=== PATIENT | male | born 1935 | race Caucasian/White ===

== ENCOUNTER 2020-05-21 11:15 | Outpatient (CLI) | payer MEDICARE, OTHER, SELFPAY ==
--- NOTE | 2020-05-21 11:00 | USCV_ITS ---
Steven Tee Age: 85 Gender: M : 1935 Exam Date: 05/21/2020 11:15 Ordering Phys: Guera Crystal MD ([email or web address]) Technologist: Toney Whiting Exam Location: [facility] [place] Indication: HISTORY: PATIENT STATES HE HAD VEIN HARVESTED FROM HIS RIGHT LEG FOR OPEN HEART SURGERY. POSSIBLE COLLATERAL NOTED THROUGHOUT THE RIGHT LOWER EXTREMITY. PROCEDURES: FINDINGS: Examination was technically limited due to body habitus. CONCLUSIONS No evidence of DVT in the above-mentioned identifiable veins. No significant venous insufficiency was noted in the veins identified bilaterally Venous dimensions and depth from the surface are as mentioned above (History of vein harvesting from the right lower extremity. Possible accessory vein) Dr José Luis Becker MD [facility] (Electronically Signed) Final Date: 21 May 2020 20:52 S
== END 2020-05-21 11:16 | disposition home or self-care (01) ==
LOC: US 11:16
PROVIDERS: PCP Nurse Practitioner; Visit Provider Internal Medicine Cardiovascular Disease
DX: Z87.898 Personal history of other specified conditions (principal); M79.605 Pain in left leg; M79.604 Pain in right leg; R25.2 Cramp and spasm
CPT/HCPCS: 93970

== ENCOUNTER 2020-12-18 09:02 | Outpatient (CLI) | payer MEDICARE, OTHER, SELFPAY ==
--- NOTE | 2020-12-18 09:06 | USCV_ITS ---
Steven Tee Age: 85 Gender: M : 1935 Exam Date: 12/18/2020 09:14 Ordering Phys: Alexus Hurst APN Technologist: Lucrecia Montano Exam Location: [facility] [place]_ Indication: EVAL FOR AAA HISTORY: Diameter (cm) AP x Transverse x Length Velocity (cm/s) Waveform Prox Aorta: 1.80 x 2.03 x 66.90 Mid Aorta: 1.80 x 1.76 x 53.70 Distal Aorta: 1.34 x 1.61 x 62.80 Right Iliac Prox: 0.72 x 0.80 x 248.80 Left Iliac Prox: 0.31 x 0.58 x 71.10 Stent Prox Landing x x Aneurysmal Sac Max x x Lt Lat Sac Dim Rt Lat Sac Dim Stent Dist Landing x x Right Iliac Stent x x Left Iliac Stent x x Right Renal Art Left Renal Art FINDINGS: Technically difficult study The abdominal aorta was difficult to visualize because of the patient's body habitus Aortic velocities are within normal limits Aortic dimensions also were within normal limits. CONCLUSIONS Possibly normal abdominal aortic dimensions with no evidence of aneurysm Elevated velocity in the right common iliac artery, suggestive of hemodynamically significant stenosis Technically very difficult study. Consider CTA, to better evaluate the iliac arteries Dr José Luis Becker MD [facility] (Electronically Signed) Final Date: 19 December 2020 09:42 S
== END 2020-12-18 09:03 | disposition home or self-care (01) ==
LOC: US 09:04
PROVIDERS: PCP Nurse Practitioner; Visit Provider Nurse Practitioner
DX: I71.4 Abdominal aortic aneurysm, without rupture (principal)
CPT/HCPCS: 93978

== ENCOUNTER 2020-12-20 11:00 | Outpatient (CLI) | payer MEDICARE, OTHER, SELFPAY | END 2020-12-20 11:01 | disposition home or self-care (01) | LOC: SLEEP 12-21 10:26 | PROVIDERS: PCP Nurse Practitioner; Visit Provider Nurse Practitioner | DX: G47.33 Obstructive sleep apnea (adult) (pediatric) (principal) | CPT/HCPCS: 94762 ==

== ENCOUNTER 2021-01-16 20:00 | Outpatient (CLI) | payer MEDICARE, OTHER, SELFPAY | END 2021-01-16 20:01 | disposition home or self-care (01) | LOC: SLEEP 01-17 08:52 | PROVIDERS: PCP Nurse Practitioner; Visit Provider Nurse Practitioner | DX: G47.33 Obstructive sleep apnea (adult) (pediatric) (principal) | CPT/HCPCS: 95810 ==

== ENCOUNTER 2021-02-25 20:00 | Outpatient (CLI) | payer MEDICARE, OTHER, SELFPAY | END 2021-02-25 20:01 | disposition home or self-care (01) | LOC: SLEEP 02-26 11:27 | PROVIDERS: PCP Nurse Practitioner; Visit Provider Nurse Practitioner | DX: G47.33 Obstructive sleep apnea (adult) (pediatric) (principal) | CPT/HCPCS: 95811 ==

== ENCOUNTER → 2021-07-13 16:36 | Outpatient (BNVA) | payer MEDICARE, OTHER, SELFPAY | PROVIDERS: PCP Nurse Practitioner; Visit Provider Registered Nurse Neonatal Intensive Care | DX: Z20.822 Contact with and (suspected) exposure to COVID-19 (principal) | CPT/HCPCS: 87635 ==

== ENCOUNTER 2021-07-13 20:07 | Emergency (ER) | payer MEDICARE, OTHER, SELFPAY ==
[2021-07-13 20:11] VITALS: BP 128/67; PULSE 90; RESP 20; O2SAT 90; BMI 30.4
[2021-07-13 20:14] VITALS: PULSE 95; RESP 25; O2SAT 93
[2021-07-13 20:15] VITALS: O2SAT 93
--- NOTE | 2021-07-13 20:25 | XRR_ITS ---
PROCEDURE INFORMATION: Exam: XR Chest Exam date and time: 07/13/2021 8:25 PM Age: 86 years old Clinical indication: Other: Weakness; Prior surgery; Surgery date: 6+ months; Surgery type: Heart; Additional info: SOB TECHNIQUE: Imaging protocol: XR of the chest. Views: 1 view. COMPARISON: No relevant prior studies available. FINDINGS: Lungs: Mild pulmonary venous congestion demonstrated. No pulmonary edema/infiltrate noted. Pleural spaces: No pleural effusion. No pneumothorax. Heart/Mediastinum: Cardiomegaly is present. 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 Bones/joints: Median sternotomy noted. XR/XR chest 1V portable [id number] IMPRESSION: 1. Cardiomegaly is present. 2. Mild pulmonary venous congestion demonstrated. 3. No pulmonary edema/infiltrate noted.
[2021-07-13 20:33] LABS: Basophils % 0.3 %; Hematocrit 43.9 % (42.0-52.0); Hemoglobin 14.9 g/dL (11.7-16.6); Lymphocytes # 0.4 10^3/uL (0.8-4.8); Lymphocytes % 3.6 %; Mean Corpuscular HGB Conc 33.9 g/dL (30.0-36.0); Mean Corpuscular Hemoglobin 34.7 pg (28.0-34.0); Mean Corpuscular Volume 102.1 fl (80-94); Mean Platelet Volume 10.1 fL (7.4-10.4); Monocytes # 1.1 10^3/uL (0.2-0.9); Neutrophils # 10.09 10^3/uL (1.8-7.7); Neutrophils % 86.4 %; Nucleated Red Blood Cells % 0 %; Platelet Count 147 10^3/cmm (130-400); Red Cell Distribution Width 14.3 % (12.1-15.1); White Blood Count 11.7 10^3/uL (4.0-10.0)
[2021-07-13 20:44] LABS: Fibrinogen 312 mg/dL (174-498)
[2021-07-13 20:47] LABS: D Dimer 0.61 ug/mIFEU (0-0.59)
[2021-07-13 20:48] LABS: Lactic Sepsis W/Reflex 0.9 mmol/L (0.5-2.2)
[2021-07-13 20:52] LABS: SARS Covid-2 Antigen Negative (Negative)
[2021-07-13 21:09] LABS: Alanine Aminotransferase 24 U/L (0-41); Albumin Level 3.8 g/dL (3.5-5.2); Alkaline Phosphatase 74 IU/L (40-130); Blood Urea Nitrogen 32 mg/dL (8-23); C Reactive Protein 20.5 mg/L (0.0-4.9); Calcium 8.4 mg/dL (8.5-10.5); Carbon Dioxide 23 mmol/L (22-29); Chloride 99 mmol/L (98-107); Creatinine Clr Calc Pharmacy 46.2641; Glucose 88 mg/dL (65-115); Osmolality Calculated 280 mOsm/kg (285-295); Sodium 132 mmol/L (136-145); Total Bilirubin 0.8 mg/dL (0.15-1.2); Total Protein 5.8 g/dL (6.6-8.7)
[2021-07-13 21:12] LABS: Aspartate Amino Transferase 27 U/L (0-40)
--- NOTE | 2021-07-13 21:23 | PC.NURSE ---
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
--- NOTE | 2021-07-13 21:33 | ECG_ITS ---
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 Measurements Intervals [place] Rate: 83 P: ME: QRS: 113 QRSD: 128 T: 11 QT: 356 QTc: 419 Interpretive Statements ATRIAL FIBRILLATION RIGHT AXIS DEVIATION [QRS AXIS > 100] RIGHT BUNDLE BRANCH BLOCK [120+ ms QRS DURATION, UPRIGHT V1, 40+ ms S IN I/aVL/V4/V5/V6] No previous ECG available for comparison Electronically Signed On 07-14-2021 19:47:43 CDT by Brant Sue M.D. [id number]
--- NOTE | 2021-07-13 21:33 | CTR_ITS ---
PROCEDURE INFORMATION: Exam: CTA Chest With Contrast Exam date and time: 07/13/2021 9:33 PM Age: 86 years old Clinical indication: Dyspnea; Prior surgery; Surgery date: 6+ months; Surgery type: Cabg; Additional info: SOB TECHNIQUE: Imaging protocol: Computed tomographic angiography of the chest with contrast. 3D rendering (Not supervised by radiologist): MIP and/or 3D reconstructed images were created by the technologist. Radiation optimization: All CT scans at this facility use at least one of these dose optimization techniques: automated exposure control; mA and/or kV adjustment per patient size (includes targeted exams where dose is matched to clinical indication); or iterative reconstruction. Contrast material: VISI; Contrast volume: 95 ml; Contrast route: INTRAVENOUS (IV); COMPARISON: CR XR chest 1V portable [id number] 07/13/2021 8:37 PM RADIATION DOSE METRICS: Total DLP (mGy-cm): 610.7 FINDINGS: Pulmonary arteries: Pulmonary arteries are well opacified. Pulmonary arteries are normal in caliber. No filling defects are demonstrated. No evidence of pulmonary embolism. Aorta: Atherosclerosis of the thoracic aorta. No aneurysm or dissection. Lungs: Subpleural fibrosis, centrilobular emphysema and subpleural bullous change noted in the lungs bilaterally. No consolidative pulmonary infiltrate noted. Pleural spaces: Unremarkable. No pneumothorax. No pleural effusion. Heart: Cardiomegaly is present. No pericardial effusion. Mediastinal space: There is a small hiatal hernia present. Lymph nodes: Unremarkable. No enlarged lymph nodes. Gallbladder and bile ducts: Calcified gallstone in the gallbladder. No changes of cholecystitis. Bones/joints: Median sternotomy noted. Median sternotomy noted. Soft tissues: The soft tissues appear unremarkable. CT/CT angio chest PE protcl [id number] IMPRESSION: 1. Pulmonary arteries appear unremarkable. No evidence of pulmonary embolism. 2. No evidence of thoracic aortic aneurysm or dissection. 3. Cardiomegaly is present. 4. Subpleural fibrosis, centrilobular emphysema and subpleural bullous change noted in the lungs bilaterally. No consolidative pulmonary infiltrate noted. Radiation Dose CTDIVOL = (mGy): DLP = 610.7 (mGy-cm)
[2021-07-13 21:49] VITALS: PULSE 91; RESP 18
[2021-07-13 21:50] LABS: Troponin(5th) Baseline 20 ng/L (0-15)
[2021-07-13 22:26] LABS: Troponin 5 2HR 22.39 ng/L (0-15); Troponin 5 2HR Delta 2.39 ABS# (0-10)
[2021-07-13 22:33] LABS: NT Pro B Type Natriuretic Pept 2162 pg/mL (0-450)
--- NOTE | 2021-07-13 23:29 | ED_ITS ---
HPI - COVID General: Chief Complaint: COVID symptoms Stated Complaint: SICK/ FEVER/ POSSIBLE COVID Time Seen by Provider: 07/13/21 20:11 Source: patient, family () and RN notes reviewed Mode of arrival: EMS Limitations: no limitations Triage information: Has fever, cough or shortness of breath . Exposure to COVID + person last 14 days History of Present Illness: HPI Narrative: 86-year-old male who was brought into the emergency department via EMS with complaints of shortness of breath, body aches, feeling unwell. Symptoms started about 3 days ago. He denies any cough. He denies any Covid exposure and has not had his Covid vaccine. MD complaint: has COVID symptoms Prior covid testing: no COVID 19 common symptoms: positive fever(s), cough, dyspnea, fatigue and body aches; negative chills, headache(s), loss of sense of smell and/or taste, throat pain, nasal congestion, nausea, vomiting, diarrhea or chest tightness COVID 19 other sytmptoms: negative chest pressure, chest pain, pleuritic pain, requiring oxygen, requiring more oxygen, respiratory distress, cyanosis, lethargy, confusion, new neurological complaints or other concerning symptoms Onset (ago): day(s) (3) Severity: moderate COVID Results: SARS-CoV-2 Antigen (Rapid) Negative (Negative) 07/13/21 20:23 07/13/21 SARS-CoV-2 RNA (RT-PCR) Pending 07/13/21 21:00 07/13/21 Review of Systems General: Reports: 10 or more systems reviewed and unremarkable except in HPI and below Const: Reports: fever(s), body aches and fatigue; Denies: chills ENMT: Denies: throat pain or nasal congestion Card: Denies: chest pain Resp: Reports: dyspnea GI: Denies: nausea, vomiting or diarrhea Neuro: Denies: headache(s) or confusion Physical Exam Const: COMMON NORMALS: no acute distress, average body habitus, patient oriented x3, no limitations, healthy appearing, alert and well nourished HENMT: COMMON NORMALS: normocephalic, atraumatic and moist oral mucous membranes HEAD & SCALP: normocephalic and atraumatic Eye: COMMON NORMALS: Equal, round and reactive pupils present, EOMs intact bilaterally, conjunctivae normal and no scleral icterus CONJUNCTIVA: Yes conjunctivae normal PUPIL: Yes Equal, round and reactive pupils present Neck/C-Spine: COMMON NORMALS: no meningeal signs and no JVD Resp: COMMON NORMALS: normal respiratory effort, No retractions, No use of accessory muscles, clear to auscultation bilaterally and percussion normal AUSCULTATION: clear to auscultation bilaterally PERCUSSION: percussion normal Cardio: COMMON NORMALS: no JVD, regular rate, regular rhythm, S1 normal heart sound present, S2 normal heart sound present, No gallops present (Cardio), No clicks present (Cardio), No murmurs present (Cardio), No rub (Cardio) and Peripheral pulses 2+ throughout RATE: regular rate RHYTHM: regular rhythm HEART SOUNDS: S1 normal heart sound present and S2 normal heart sound present PERIPHERAL PULSES: Peripheral pulses 2+ throughout GI: COMMON NORMALS: Normal to inspection, nondistended, normoactive bowel sounds present, Soft to palpation, non-tender, No hepatosplenomegaly present, no masses and no bruits PALPATION: Yes Soft to palpation and Yes No hepatosplenomegaly present Extremity: COMMON NORMALS: normal to inspection, full ROM, capillary refill normal, no calf tenderness and no pedal edema Neuro: COMMON NORMALS: patient oriented x3 SENSORIUM/ORIENTATION: Yes alert MENINGEAL SIGNS: Yes no meningeal signs Skin: COMMON NORMALS: no rashes or lesions noted, no wounds, turgor normal, no jaundice, no petechiae and no mottling GENERAL SKIN EXAM: no rashes or lesions noted and turgor normal Course Reevaluation(s): Reevaluation #1: Discussed his lab and imaging findings with him. Negative for acute findings. Mildly elevated high-sensitivity troponin but he has a flat 2-hour delta. CTA of his chest was negative for pulmonary embolism. proBNP elevated, patient states that he knows he has a history of congestive heart failure and takes furosemide, however he has not been taking it for about 4 days now. He was advised to be compliant with his medications, he will be contacted with the results of his PCR test. We will discharge him home with no new orders now. He voiced understanding and is in agreement with the plan. Time: 00:33 Vital Signs: Vital signs: Vital Signs Pulse Rate 91 08/28/21 21:49 Respiratory Rate 18 07/13/21 21:49 Blood Pressure 128/67 07/13/21 20:11 Pulse Oximetry 93 07/13/21 20:15 MDM - COVID MDM Narrative: Medical decision making narrative: 86-year-old male who presents to the emergency department with shortness of breath, fever, weakness for about 3 days. Rapid Covid test in the emergency department is negative. PCR test percentile. Cardiac work-up was unremarkable. CTA of his chest was also unremarkable. He is discharged home with no new orders. Medical Records: Attestation: I reviewed the patient's medical records. Lab Data: Attestation: I reviewed the patient's lab results. Labs: Lab Results 07/13/21 07/13/21 07/13/21 Range/Units 19:29 19:29 19:29 WBC 11.7 H (4.0-10.0) 10^3/ uL RBC 4.30 (4.1-5.3) 10^6/u L Hgb 14.9 (11.7-16.6) g/dL Hct 43.9 (42.0-52.0) % MCV 102.1 H (80-94) fl MCH 34.7 H (28.0-34.0) pg MCHC 33.9 (30.0-36.0) g/dL RDW 14.3 (12.1-15.1) % Plt Count 147 (130-400) 10^3/c mm MPV 10.1 (7.4-10.4) fL Neut % (Auto) 86.4 % Lymph % (Auto) 3.6 % [place] % (Auto) 9.0 % Eos % (Auto) 0.0 % Baso % (Auto) 0.3 % Neut # (Auto) 10.09 H (1.8-7.7) 10^3/u L Lymph # (Auto) 0.4 L (0.8-4.8) 10^3/u L [place] # (Auto) 1.1 H (0.2-0.9) 10^3/u L Eos # (Auto) 0.0 (0.0-0.8) 10^3/u L Baso # (Auto) 0.0 (0.0-0.1) 10^3/u L Nucleated RBC % (a uto) 0 % Nucleated RBCs # 0.0 /100WBC Fibrinogen 312 (174-498) mg/dL D-Dimer 0.61 H (0-0.59) ug/mIFE U Sodium 132 L (136-145) mmol/L Potassium 5.0 (3.5-5.1) mmol/L Chloride 99 (98-107) mmol/L Carbon Dioxide 23 (22-29) mmol/L Anion Gap 15.0 (5-19) BUN 32 H (8-23) mg/dL Creatinine 1.3 H (0.7-1.2) mg/dL GFR Calculation Not Reportable Glucose 88 (65-115) mg/dL Calculated Osmolal ity 280 L (285-295) mOsm/k g Lactic Acid (0.5-2.2) mmol/L Calcium 8.4 L (8.5-10.5) mg/dL Total Bilirubin 0.8 (0.15-1.2) mg/dL AST 27 (0-40) U/L ALT 24 (0-41) U/L Alkaline Phosphata se 74 (40-130) IU/L Troponin T Baselin e (0-15) ng/L Troponin T 120 Min [place] (0-15) ng/L Delta Troponin T (0-10) ABS# C-Reactive Protein 20.5 H (0.0-4.9) mg/L NT-Pro-B Natriuret Pep (0-450) pg/mL Total Protein 5.8 L (6.6-8.7) g/dL Albumin 3.8 (3.5-5.2) g/dL Globulin 2.0 (1.3-4.6) g/dL Procalcitonin 0.10 (0-0.5) ng/mL SARS-CoV-2 Ag (Rap id) (Negative) 07/13/21 07/13/21 07/13/21 Range/Units 19:29 19:29 20:23 WBC (4.0-10.0) 10^3/ uL RBC (4.1-5.3) 10^6/u L Hgb (11.7-16.6) g/dL Hct (42.0-52.0) % MCV (80-94) fl MCH (28.0-34.0) pg MCHC (30.0-36.0) g/dL RDW (12.1-15.1) % Plt Count (130-400) 10^3/c mm MPV (7.4-10.4) fL Neut % (Auto) % Lymph % (Auto) % [place] % (Auto) % Eos % (Auto) % Baso % (Auto) % Neut # (Auto) (1.8-7.7) 10^3/u L Lymph # (Auto) (0.8-4.8) 10^3/u L [place] # (Auto) (0.2-0.9) 10^3/u L Eos # (Auto) (0.0-0.8) 10^3/u L Baso # (Auto) (0.0-0.1) 10^3/u L Nucleated RBC % (a uto) % Nucleated RBCs # /100WBC Fibrinogen (174-498) mg/dL D-Dimer (0-0.59) ug/mIFE U Sodium (136-145) mmol/L Potassium (3.5-5.1) mmol/L Chloride (98-107) mmol/L Carbon Dioxide (22-29) mmol/L Anion Gap (5-19) BUN (8-23) mg/dL Creatinine (0.7-1.2) mg/dL GFR Calculation Glucose (65-115) mg/dL Calculated Osmolal ity (285-295) mOsm/k g Lactic Acid 0.9 (0.5-2.2) mmol/L Calcium (8.5-10.5) mg/dL Total Bilirubin (0.15-1.2) mg/dL AST (0-40) U/L ALT (0-41) U/L Alkaline Phosphata se (40-130) IU/L Troponin T Baselin e 20 H (0-15) ng/L Troponin T 120 Min [place] (0-15) ng/L Delta Troponin T (0-10) ABS# C-Reactive Protein (0.0-4.9) mg/L NT-Pro-B Natriuret Pep 2162 H (0-450) pg/mL Total Protein (6.6-8.7) g/dL Albumin (3.5-5.2) g/dL Globulin (1.3-4.6) g/dL Procalcitonin (0-0.5) ng/mL SARS-CoV-2 Ag (Rap id) (Negative) 07/13/21 07/13/21 Range/Units 20:23 21:50 WBC (4.0-10.0) 10^3/ uL RBC (4.1-5.3) 10^6/u L Hgb (11.7-16.6) g/dL Hct (42.0-52.0) % MCV (80-94) fl MCH (28.0-34.0) pg MCHC (30.0-36.0) g/dL RDW (12.1-15.1) % Plt Count (130-400) 10^3/c mm MPV (7.4-10.4) fL Neut % (Auto) % Lymph % (Auto) % [place] % (Auto) % Eos % (Auto) % Baso % (Auto) % Neut # (Auto) (1.8-7.7) 10^3/u L Lymph # (Auto) (0.8-4.8) 10^3/u L [place] # (Auto) (0.2-0.9) 10^3/u L Eos # (Auto) (0.0-0.8) 10^3/u L Baso # (Auto) (0.0-0.1) 10^3/u L Nucleated RBC % (a uto) % Nucleated RBCs # /100WBC Fibrinogen (174-498) mg/dL D-Dimer (0-0.59) ug/mIFE U Sodium (136-145) mmol/L Potassium (3.5-5.1) mmol/L Chloride (98-107) mmol/L Carbon Dioxide (22-29) mmol/L Anion Gap (5-19) BUN (8-23) mg/dL Creatinine (0.7-1.2) mg/dL GFR Calculation Glucose (65-115) mg/dL Calculated Osmolal ity (285-295) mOsm/k g Lactic Acid (0.5-2.2) mmol/L Calcium (8.5-10.5) mg/dL Total Bilirubin (0.15-1.2) mg/dL AST (0-40) U/L ALT (0-41) U/L Alkaline Phosphata se (40-130) IU/L Troponin T Baselin e (0-15) ng/L Troponin T 120 Min [place] 22.39 H (0-15) ng/L Delta Troponin T 2.39 (0-10) ABS# C-Reactive Protein (0.0-4.9) mg/L NT-Pro-B Natriuret Pep (0-450) pg/mL Total Protein (6.6-8.7) g/dL Albumin (3.5-5.2) g/dL Globulin (1.3-4.6) g/dL Procalcitonin (0-0.5) ng/mL SARS-CoV-2 Ag (Rap id) Negative (Negative) Imaging Data: CTA Chest: Attestation: I personally reviewed and interpreted this imaging study as follows: Radiologist's impression: [facility] [id number] Scan ReportSigned Patient: Steven Tee #: [id number]: 1935cct#:[id number]/Sex: 86 / MADM Date: 07/13/21Loc: ERRoom/Bed:Attending Dr: Ordering Provider/Ordering MD: Marla Corona MD, [facility] [place] Date of Service: 07/13/21 Procedure(s): CT angio chest PE protcl [id number] Accession Number(s): [id number] Report Number: [id number] PROCEDURE INFORMATION: Exam: CTA Chest With Contrast Exam date and time: 07/13/2021 9:33 PM Age: 86 years old Clinical indication: Dyspnea; Prior surgery; Surgery date: 6+ months; Surgery type: Cabg; Additional info: SOB TECHNIQUE: Imaging protocol: Computed tomographic angiography of the chest with contrast. 3D rendering (Not supervised by radiologist): MIP and/or 3D reconstructed images were created by the technologist. Radiation optimization: All CT scans at this facility use at least one of these dose optimization techniques: automated exposure control; mA and/or kV adjustment per patient size (includes targeted exams where dose is matched to clinical indication); or iterative reconstruction. Contrast material: VISI; Contrast volume: 95 ml; Contrast route: INTRAVENOUS (IV); COMPARISON: CR XR chest 1V portable [id number] 07/13/2021 8:37 PM RADIATION DOSE METRICS: Total DLP (mGy-cm): 610.7 FINDINGS: Pulmonary arteries: Pulmonary arteries are well opacified. Pulmonary arteries are normal in caliber. No filling defects are demonstrated. No evidence of pulmonary embolism. Aorta: Atherosclerosis of the thoracic aorta. No aneurysm or dissection. Lungs: Subpleural fibrosis, centrilobular emphysema and subpleural bullous change noted in the lungs bilaterally. No consolidative pulmonary infiltrate noted. Pleural spaces: Unremarkable. No pneumothorax. No pleural effusion. Heart: Cardiomegaly is present. No pericardial effusion. Mediastinal space: There is a small hiatal hernia present. Lymph nodes: Unremarkable. No enlarged lymph nodes. Gallbladder and bile ducts: Calcified gallstone in the gallbladder. No changes of cholecystitis. Bones/joints: Median sternotomy noted. Median sternotomy noted. Soft tissues: The soft tissues appear unremarkable. CT/CT angio chest PE protcl [id number] IMPRESSION: 1. Pulmonary arteries appear unremarkable. No evidence of pulmonary embolism. 2. No evidence of thoracic aortic aneurysm or dissection. 3. Cardiomegaly is present. 4. Subpleural fibrosis, centrilobular emphysema and subpleural bullous change noted in the lungs bilaterally. No consolidative pulmonary infiltrate noted. Radiation Dose CTDIVOL = (mGy): DLP = 610.7 (mGy-cm) Dictated By:Jesse Morataya MDSigned By:Jesse Morataya MDSigned Date/Time:07/14/21 0020DD/ 0017 CXR: Attestation: I personally reviewed and interpreted this imaging study as follows: Radiologist's impression: [address] [address]GOhr ReportSigned Patient: Steven Tee #: [id number]: 0 1935cct#:[id number]/Sex: 86 / MADM Date: 07/13/21Loc: ERRoom/Bed:Attending Dr: Ordering Provider/Ordering MD: Marla Corona MD, [facility] [place] Date of Service: 07/13/21 Procedure(s): XR chest 1V portable [id number] Accession Number(s): [id number] Report Number: [id number] PROCEDURE INFORMATION: Exam: XR Chest Exam date and time: 07/13/2021 8:25 PM Age: 86 years old Clinical indication: Other: Weakness; Prior surgery; Surgery date: 6+ months; Surgery type: Heart; Additional info: SOB TECHNIQUE: Imaging protocol: XR of the chest. Views: 1 view. COMPARISON: No relevant prior studies available. FINDINGS: Lungs: Mild pulmonary venous congestion demonstrated. No pulmonary edema/infiltrate noted. Pleural spaces: No pleural effusion. No pneumothorax. Heart/Mediastinum: Cardiomegaly is present. 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 Bones/joints: Median sternotomy noted. XR/XR chest 1V portable [id number] IMPRESSION: 1. Cardiomegaly is present. 2. Mild pulmonary venous congestion demonstrated. 3. No pulmonary edema/infiltrate noted. Dictated By:Jesse Morataya MDSigned By:Jesse Morataya MDSigned Date/Time:07/13/212129DD/ 27 EKG Data: EKG 1: Attestation: I personally reviewed and interpreted this EKG as follows: EKG interpretation date: 07/13/21 EKG interpretation time: 20:16 Prior EKG tracings: not available for review Interpretation: Atrial fibrillation. Heart rate 83 bpm. Right axis deviation. Right bundle branch block. No ST changes. COVID Results: SARS-CoV-2 Antigen (Rapid) Negative (Negative) 07/13/21 20:23 07/13/21 SARS-CoV-2 RNA (RT-PCR) Pending 07/13/21 21:00 07/13/21 Discharge Plan Discharge Patient Disposition: Home Clinical Impression: Suspected severe acute respiratory syndrome coronavirus 2 (SARS-CoV-2) infection Condition: Stable Discharge Orders: Discharge ED (Routine); Ordered 07/14/21 Ordered By: Marla Corona Referrals: Alexus Hurst APN [Primary Care Provider] - 1-3 days Discharge Diet: Usual diet Discharge Activity: Increase activity as tolerated Patient Instructions: Viral Syndrome (ED) Activity Restrictions/Additional Instructions: Return for any new or worsening symptoms. Follow-up with your primary care provider within 3 days. Continue your home medications, especially your water pills. You will be contacted with the results of your Covid test. You need to quarantine until you receive your PCR Covid test results. Coding Level of Care Code ED Spine Supervisor for [place] Fwd Exam Comprehensive
--- NOTE | 2021-07-13 23:33 | ECG_ITS ---
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 Measurements Intervals [place] Rate: 84 P: IA: QRS: 108 QRSD: 129 T: 20 QT: 380 QTc: 450 Interpretive Statements ATRIAL FIBRILLATION RIGHT AXIS DEVIATION [QRS AXIS > 100] RIGHT BUNDLE BRANCH BLOCK [120+ ms QRS DURATION, UPRIGHT V1, 40+ ms S IN I/aVL/V4/V5/V6] Compared to ECG 07/13/2021 20:16:45 No significant changes Electronically Signed On 07-14-2021 19:48:41 CDT by Brant Sue M.D. [id number]
[2021-07-13] MEDS: iodixanol 320 mg/mL 100mL Btl IV (23:59)
[2021-07-14 01:12] VITALS: BP 126/69; PULSE 89; RESP 11; O2SAT 96
[2021-07-15 19:07] LABS: Quest SARS-CoV-2 RNA NOT DETECTED (NOT DETECTED)
== END 2021-07-14 01:16 | disposition home or self-care (01) ==
PROVIDERS: Emergency Provider Family Medicine; PCP Nurse Practitioner
DX: Z20.822 Contact with and (suspected) exposure to COVID-19 (principal)
CPT/HCPCS: 36415; 71045; 71275; 80053; 83605; 83880; 84145; 84484; 85025; 85378; 85384; 86140; 87426; 87635; 93005; 99283; Q9967

== ENCOUNTER 2021-11-19 12:57 | Inpatient (IN) | payer MEDICARE, OTHER, SELFPAY ==
[2021-11-19 13:13] VITALS: BP 143/70; PULSE 74; RESP 20; TEMP 36.7; O2SAT 97
--- NOTE | 2021-11-19 13:47 | XRR_ITS ---
PROCEDURE INFORMATION: Exam: XR Chest Exam date and time: 11/19/2021 1:47 PM Age: 86 years old Clinical indication: Pain; Angina pectoris; Additional info: Cp TECHNIQUE: Imaging protocol: XR of the chest. Views: 1 view. COMPARISON: CR XR chest 1V portable [id number] 07/13/2021 8:37 PM FINDINGS: Lungs: Unremarkable. No consolidation. Pleural spaces: Unremarkable. No pleural effusion. No pneumothorax. Heart/Mediastinum: Unremarkable. No cardiomegaly. Bones/joints: Metallic sternotomy wires are in place. There are several fractured sternotomy wires similar findings seen comparing to prior examination XR/XR chest 1V portable [id number] IMPRESSION: No acute findings. Status post sternotomy with multiple fractured wires
--- NOTE | 2021-11-19 13:48 | ECG_ITS ---
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 Measurements Intervals [place] Rate: 72 P: [place]: QRS: 112 QRSD: 145 T: -35 QT: 420 QTc: 462 Interpretive Statements ATRIAL FIBRILLATION RIGHT BUNDLE BRANCH BLOCK [120+ ms QRS DURATION, UPRIGHT V1, 40+ ms S IN I/aVL/V4/V5/V6] LEFT POSTERIOR FASCICULAR BLOCK [QRS AXIS > 109, INFERIOR Q] Compared to ECG 07/30/2017 20:28:59 Left posterior fascicular block now present Sinus rhythm no longer present Electronically Signed On 11-20-2021 5:31:42 ACCOUNTANT CERTIFIED PUBLIC by Maine Taylor M.D. [id number]
[2021-11-19 14:27] LABS: Basophils # 0.1 10^3/uL (0.0-0.1); Basophils % 0.6 %; Eosinophils # 0.2 10^3/uL (0.0-0.8); Hematocrit 49.1 % (42.0-52.0); Hemoglobin 16.3 g/dL (11.7-16.6); Lymphocytes # 0.9 10^3/uL (0.8-4.8); Lymphocytes % 10.3 %; Mean Corpuscular HGB Conc 33.2 g/dL (30.0-36.0); Mean Corpuscular Hemoglobin 35.1 pg (28.0-34.0); Mean Corpuscular Volume 105.6 fl (80-94); Monocytes # 0.9 10^3/uL (0.2-0.9); Monocytes % 10.7 %; Neutrophils # 6.41 10^3/uL (1.8-7.7); Neutrophils % 74.9 %; Nucleated Red Blood Cells % 0 %; Platelet Count 164 10^3/cmm (130-400); Red Blood Count 4.65 10^6/uL (4.1-5.3); Red Cell Distribution Width 14.4 % (12.1-15.1); White Blood Count 8.6 10^3/uL (4.0-10.0)
--- NOTE | 2021-11-19 14:36 | ED_ITS ---
Documented by User: LEONOR Davies 11/19/21 14:37 HPI - Chest Pain General: Chief Complaint: ER Hold Stated Complaint: CP 3+ DAYS Time Seen by Provider: 11/19/21 16:03 History of Present Illness: HPI narrative: Patient complains about chest pain for the last 3 days. He says it goes into his left jaw left upper arm and starts in his chest. Is relieved with his eyes provide which only last for about 8 hours and then the pain comes back. Denies any fever chills. MD complaint: chest pain PFSH ED PFSH: Medical History (Updated 11/20/21 @ 11:23 by Guera Crystal MD) Atherosclerosis of leg with intermittent claudication Atrial fibrillation BPH (benign prostatic hyperplasia) CAD (coronary artery disease) CKD (chronic kidney disease) Diastolic CHF History of cardioversion 03/16/2019 History of sleep study (01/2021) severe obstructive sleep apnea, optimal pressure setting 6cm, with recommendation for auto-titrating CPAP 5-9 cm HTN (hypertension), benign Hyperlipidemia RLS (restless legs syndrome) Sleep apnea Varicose veins of bilateral lower extremities with other complications Surgical History (Updated 11/19/21 @ 20:14 by Mehnaz Gonzalez MD) S/P AAA (abdominal aortic aneurysm) repair with [place] endograft S/P CABG (coronary artery bypass graft) 1988 X1, 2006 X2 S/P carotid endarterectomy S/P coronary angiogram 04/29/2007 S/P femoral-femoral bypass surgery Family History Brother Cancer CAD (coronary artery disease) Diabetes Mother Heart disease CAD (coronary artery disease) Diabetes Sister CAD (coronary artery disease) Denies family history of Clotting disorder Dementia Chronic kidney disease (CKD) Suicide Anesthesia complication Bleeding disorder Lung disease Stroke Social History (Updated 11/20/21 @ 01:33 by Mehnaz Gonzalez MD) Smoking and tobacco status: never smoked Alcohol intake: never Substance/Drug Use: never Lives independently: Yes Household members: spouse Marital status: Course Vital Signs: Vital signs: Vital Signs Temperature 97.2 F L 11/21/21 08:00 Pulse Rate 79 11/21/21 08:00 Respiratory Rate 18 11/21/21 08:00 Blood Pressure 144/94 11/21/21 08:00 Pulse Oximetry 95 11/21/21 08:00 MDM - Chest Pain MDM Narrative: Medical decision making narrative: Brief history and physical exam was performed as part of the triage process. Due to current ED wait time patient will be placed in waiting room until a room becomes available. Explained to patient he/she will be seen in order of severity. Patient is currently safe to wait in the waiting room until we can get them placed. Patient informed that if condition worsens at any time to please let the help desk representative know. Lab Data: Labs: Lab Results 11/19/21 11/19/21 11/19/21 14:14 14:14 14:14 WBC 8.6 10^3/uL 10^3/ uL (4.0-10.0) RBC 4.65 10^6/uL 10^6 /uL (4.1-5.3) Hgb 16.3 g/dL g/dL (11.7-16.6) Hct 49.1 % % (42.0-52.0) MCV 105.6 fl H fl (80-94) MCH 35.1 pg H pg (28.0-34.0) MCHC 33.2 g/dL g/dL (30.0-36.0) RDW 14.4 % % (12.1-15.1) Plt Count 164 10^3/cmm 10^3 /cmm (130-400) MPV 10.0 fL fL (7.4-10.4) Neut % (Auto) 74.9 % % Lymph % (Auto) 10.3 % % [place] % (Auto) 10.7 % % Eos % (Auto) 2.0 % % Baso % (Auto) 0.6 % % Neut # (Auto) 6.41 10^3/uL 10^3 /uL (1.8-7.7) Lymph # (Auto) 0.9 10^3/uL 10^3/ uL (0.8-4.8) [place] # (Auto) 0.9 10^3/uL 10^3/ uL (0.2-0.9) Eos # (Auto) 0.2 10^3/uL 10^3/ uL (0.0-0.8) Baso # (Auto) 0.1 10^3/uL 10^3/ uL (0.0-0.1) Nucleated RBC % (a uto) 0 % % Nucleated RBCs # 0.0 /100WBC /100W BC PT 17.30 SECONDS H S ECONDS (12.1-14.9) INR 1.38 H (0.8-1.2) Sodium Potassium Chloride Carbon Dioxide Anion Gap BUN Creatinine GFR Calculation Glucose Calculated Osmolal ity Calcium Total Bilirubin AST ALT Alkaline Phosphata se Troponin T Baselin e 22 ng/L H ng/L (0-15) Troponin T 120 Min [place] Delta Troponin T Troponin T Hi Sens 6Hr Troponin T Hi Sens 6Hr Delta Total Protein Albumin Globulin 11/19/21 11/19/21 11/19/21 15:24 16:20 16:20 WBC RBC Hgb Hct MCV MCH MCHC RDW Plt Count MPV Neut % (Auto) Lymph % (Auto) [place] % (Auto) Eos % (Auto) Baso % (Auto) Neut # (Auto) Lymph # (Auto) [place] # (Auto) Eos # (Auto) Baso # (Auto) Nucleated RBC % (a uto) Nucleated RBCs # PT INR Sodium Cancelled 143 mmol/L mmol/L (136-145) Potassium Cancelled 4.6 mmol/L mmol/L (3.5-5.1) Chloride Cancelled 104 mmol/L mmol/L (98-107) Carbon Dioxide Cancelled 27 mmol/L mmol/L (22-29) Anion Gap Cancelled 16.6 (5-19) BUN Cancelled 31 mg/dL H mg/dL (8-23) Creatinine Cancelled 1.4 mg/dL H mg/dL (0.7-1.2) GFR Calculation Cancelled Not Reportable Glucose Cancelled 85 mg/dL mg/dL (65-115) Calculated Osmolal ity Cancelled 302 mOsm/kg H mOs m/kg (285-295) Calcium Cancelled 8.7 mg/dL mg/dL (8.5-10.5) Total Bilirubin Cancelled 0.5 mg/dL mg/dL (0.15-1.2) AST Cancelled 29 U/L U/L (0-40) ALT Cancelled 38 U/L U/L (0-41) Alkaline Phosphata se Cancelled 96 IU/L IU/L (40-130) Troponin T Baselin e Troponin T 120 Min [place] 20.75 ng/L H ng/L (0-15) Delta Troponin T -1.25 ABS# L ABS# (0-10) Troponin T Hi Sens 6Hr Troponin T Hi Sens 6Hr Delta Total Protein Cancelled 5.9 g/dL L g/dL (6.6-8.7) Albumin Cancelled 4.0 g/dL g/dL (3.5-5.2) Globulin Cancelled 1.9 g/dL g/dL (1.3-4.6) 11/19/21 20:26 WBC RBC Hgb Hct MCV MCH MCHC RDW Plt Count MPV Neut % (Auto) Lymph % (Auto) [place] % (Auto) Eos % (Auto) Baso % (Auto) Neut # (Auto) Lymph # (Auto) [place] # (Auto) Eos # (Auto) Baso # (Auto) Nucleated RBC % (a uto) Nucleated RBCs # PT INR Sodium Potassium Chloride Carbon Dioxide Anion Gap BUN Creatinine GFR Calculation Glucose Calculated Osmolal ity Calcium Total Bilirubin AST ALT Alkaline Phosphata se Troponin T Baselin e Troponin T 120 Min [place] Delta Troponin T Troponin T Hi Sens 6Hr 19.92 ng/L H ng/L (0-15) Troponin T Hi Sens 6Hr Delta -2.08 ng/L L ng/L (0-12) Total Protein Albumin Globulin Discharge Plan Discharge Patient Disposition: Admitted As Inpatient Admit Provider: Papito Ramirez Clinical Impression: Unstable angina, CAD (coronary artery disease), S/P CABG (coronary artery bypass graft), HTN (hypertension), benign, S/P femoral-femoral bypass surgery, S/P AAA (abdominal aortic aneurysm) repair, Atrial fibrillation Condition: Stable Coding Level of Care Code ED Ppap Coordinator for Chg Fwd Exam Comprehensive Documented by User: New Gillespie DO 11/21/21 09:05 HPI - Chest Pain General: Chief Complaint: ER Hold Stated Complaint: CP 3+ DAYS Time Seen by Provider: 11/19/21 16:03 History of Present Illness: HPI narrative: 86-year-old male presents emergency room complaining of chest discomfort. States he had it for the last 3 days is worse in the morning worse late in the evening he states he gets better after he takes his isosorbide mononitrate. Is currently taking 30 mg twice a day he notes that it does seem to improve the chest discomfort. Patient does not radiate to his neck or arms he has known history of coronary disease last angiogram was about 5 years ago or more has previously had an bypass graft that was given longer ago. Has not recently had any stress testing. complaint: chest pain Pertinent past history: coronary artery disease Onset (ago): day(s) Timing of current episode: episodic Prior episodes: Yes Onset: during rest Pain location: left chest Pain radiation: none Severity: mild Quality: tightness and aching Relieving factors: nitroglycerin (Isosorbide mononitrate) Exacerbating factors: nothing Associated symptoms: Deny abdominal pain, diaphoresis, dyspnea, fever(s), leg edema, nausea, palpitations, sense of impending doom, syncope or vomiting Treatment prior to arrival: none Review of Systems Const: Denies: fever(s) or diaphoresis ENMT: Denies: throat pain, ear or mastoid pain, nasal discharge or nasal congestion Card: Denies: palpitations or syncope Resp: Denies: dyspnea GI: Denies: abdominal pain, nausea or vomiting : Denies: flank pain, dysuria, urinary frequency or urinary urgency Skin/Breast: Denies: rash or pruritus [facility] ED PFSH: Medical History (Updated 11/20/21 @ 11:23 by Guera Crystal MD) Atherosclerosis of leg with intermittent claudication Atrial fibrillation BPH (benign prostatic hyperplasia) CAD (coronary artery disease) CKD (chronic kidney disease) Diastolic CHF History of cardioversion 03/16/2019 History of sleep study (01/2021) severe obstructive sleep apnea, optimal pressure setting 6cm, with recommendation for auto-titrating CPAP 5-9 cm HTN (hypertension), benign Hyperlipidemia RLS (restless legs syndrome) Sleep apnea Varicose veins of bilateral lower extremities with other complications Surgical History (Updated 11/19/21 @ 20:14 by Mehnaz Gonzalez MD) S/P AAA (abdominal aortic aneurysm) repair with [place] endograft S/P CABG (coronary artery bypass graft) 1988 X1, 2006 X2 S/P carotid endarterectomy S/P coronary angiogram 04/29/2007 S/P femoral-femoral bypass surgery Family History Brother Cancer CAD (coronary artery disease) Diabetes Mother Heart disease CAD (coronary artery disease) Diabetes Sister CAD (coronary artery disease) Denies family history of Clotting disorder Dementia Chronic kidney disease (CKD) Suicide Anesthesia complication Bleeding disorder Lung disease Stroke Social History (Updated 11/20/21 @ 01:33 by Mehnaz Gonzalez MD) Smoking and tobacco status: never smoked Alcohol intake: never Substance/Drug Use: never Lives independently: Yes Household members: spouse Marital status: Physical Exam Const: COMMON NORMALS: no acute distress GENERAL APPEARANCE: cooperative and comfortable ORIENTATION/CONSCIOUSNESS: Yes awake, Yes oriented to person, Yes oriented to place and Yes oriented to time HENMT: COMMON NORMALS: normocephalic, atraumatic and hearing grossly normal bilaterally HEAD & SCALP: normocephalic and atraumatic Neck/C-Spine: COMMON NORMALS: no JVD Resp: COMMON NORMALS: normal respiratory effort, No retractions, No use of accessory muscles and clear to auscultation bilaterally AUSCULTATION: clear to auscultation bilaterally Cardio: COMMON NORMALS: no JVD, regular rate, regular rhythm and No murmurs present (Cardio) RATE: regular rate RHYTHM: regular rhythm GI: COMMON NORMALS: Soft to palpation and No hepatosplenomegaly present AUSCULTATION: Yes normoactive bowel sounds PALPATION: Yes Soft to palpation, No Tenderness to palpation present (GI), No Guarding due to palpation present (GI) and Yes No hepatosplenomegaly present Extremity: COMMON NORMALS: normal to inspection, capillary refill normal, no clubbing, cyanosis or edema, no calf tenderness and no pedal edema Neuro: SENSORIUM/ORIENTATION: Yes oriented to person, Yes oriented to place and Yes oriented to time Skin: COMMON NORMALS: no rashes or lesions noted GENERAL SKIN EXAM: no rashes or lesions noted Course Vital Signs: Vital signs: Vital Signs Temperature 97.2 F L 11/21/21 08:00 Pulse Rate 79 11/21/21 08:00 Respiratory Rate 18 11/21/21 08:00 Blood Pressure 144/94 11/21/21 08:00 Pulse Oximetry 95 11/21/21 08:00 MDM - Chest Pain MDM Narrative: Medical decision making narrative: We are about to discharge the patient began to have more chest pain. Is radiating to his left arm given sublingual nitro and he did have some improvement discussed Dr. Martinez. Wearing go ahead and keep the patient here. His initial EKG does not show any change note is a subsequent once his troponins are unremarkable chest pain is resolved now. Was given Lovenox hold his Eliquis and given topical Nitropaste. Dr. Crystal plans to do a angiogram on the patient in the morning. Discussed with the family at the bedside, discussed Dr. Ramirez. Lab Data: Labs: Lab Results 11/19/21 11/19/21 11/19/21 14:14 14:14 14:14 WBC 8.6 10^3/uL 10^3/ uL (4.0-10.0) RBC 4.65 10^6/uL 10^6 /uL (4.1-5.3) Hgb 16.3 g/dL g/dL (11.7-16.6) Hct 49.1 % % (42.0-52.0) MCV 105.6 fl H fl (80-94) MCH 35.1 pg H pg (28.0-34.0) MCHC 33.2 g/dL g/dL (30.0-36.0) RDW 14.4 % % (12.1-15.1) Plt Count 164 10^3/cmm 10^3 /cmm (130-400) MPV 10.0 fL fL (7.4-10.4) Neut % (Auto) 74.9 % % Lymph % (Auto) 10.3 % % [place] % (Auto) 10.7 % % Eos % (Auto) 2.0 % % Baso % (Auto) 0.6 % % Neut # (Auto) 6.41 10^3/uL 10^3 /uL (1.8-7.7) Lymph # (Auto) 0.9 10^3/uL 10^3/ uL (0.8-4.8) [place] # (Auto) 0.9 10^3/uL 10^3/ uL (0.2-0.9) Eos # (Auto) 0.2 10^3/uL 10^3/ uL (0.0-0.8) Baso # (Auto) 0.1 10^3/uL 10^3/ uL (0.0-0.1) Nucleated RBC % (a uto) 0 % % Nucleated RBCs # 0.0 /100WBC /100W BC PT 17.30 SECONDS H S ECONDS (12.1-14.9) INR 1.38 H (0.8-1.2) Sodium Potassium Chloride Carbon Dioxide Anion Gap BUN Creatinine GFR Calculation Glucose Calculated Osmolal ity Calcium Total Bilirubin AST ALT Alkaline Phosphata se Troponin T Baselin e 22 ng/L H ng/L (0-15) Troponin T 120 Min [place] Delta Troponin T Troponin T Hi Sens 6Hr Troponin T Hi Sens 6Hr Delta Total Protein Albumin Globulin 11/19/21 11/19/21 11/19/21 15:24 16:20 16:20 WBC RBC Hgb Hct MCV MCH MCHC RDW Plt Count MPV Neut % (Auto) Lymph % (Auto) [place] % (Auto) Eos % (Auto) Baso % (Auto) Neut # (Auto) Lymph # (Auto) [place] # (Auto) Eos # (Auto) Baso # (Auto) Nucleated RBC % (a uto) Nucleated RBCs # PT INR Sodium Cancelled 143 mmol/L mmol/L (136-145) Potassium Cancelled 4.6 mmol/L mmol/L (3.5-5.1) Chloride Cancelled 104 mmol/L mmol/L (98-107) Carbon Dioxide Cancelled 27 mmol/L mmol/L (22-29) Anion Gap Cancelled 16.6 (5-19) BUN Cancelled 31 mg/dL H mg/dL (8-23) Creatinine Cancelled 1.4 mg/dL H mg/dL (0.7-1.2) GFR Calculation Cancelled Not Reportable Glucose Cancelled 85 mg/dL mg/dL (65-115) Calculated Osmolal ity Cancelled 302 mOsm/kg H mOs m/kg (285-295) Calcium Cancelled 8.7 mg/dL mg/dL (8.5-10.5) Total Bilirubin Cancelled 0.5 mg/dL mg/dL (0.15-1.2) AST Cancelled 29 U/L U/L (0-40) ALT Cancelled 38 U/L U/L (0-41) Alkaline Phosphata se Cancelled 96 IU/L IU/L (40-130) Troponin T Baselin e Troponin T 120 Min [place] 20.75 ng/L H ng/L (0-15) Delta Troponin T -1.25 ABS# L ABS# (0-10) Troponin T Hi Sens 6Hr Troponin T Hi Sens 6Hr Delta Total Protein Cancelled 5.9 g/dL L g/dL (6.6-8.7) Albumin Cancelled 4.0 g/dL g/dL (3.5-5.2) Globulin Cancelled 1.9 g/dL g/dL (1.3-4.6) 11/19/21 20:26 WBC RBC Hgb Hct MCV MCH MCHC RDW Plt Count MPV Neut % (Auto) Lymph % (Auto) [place] % (Auto) Eos % (Auto) Baso % (Auto) Neut # (Auto) Lymph # (Auto) [place] # (Auto) Eos # (Auto) Baso # (Auto) Nucleated RBC % (a uto) Nucleated RBCs # PT INR Sodium Potassium Chloride Carbon Dioxide Anion Gap BUN Creatinine GFR Calculation Glucose Calculated Osmolal ity Calcium Total Bilirubin AST ALT Alkaline Phosphata se Troponin T Baselin e Troponin T 120 Min [place] Delta Troponin T Troponin T Hi Sens 6Hr 19.92 ng/L H ng/L (0-15) Troponin T Hi Sens 6Hr Delta -2.08 ng/L L ng/L (0-12) Total Protein Albumin Globulin Discharge Plan Discharge Patient Disposition: Admitted As Inpatient Admit Provider: Papito Ramirez Clinical Impression: Unstable angina, CAD (coronary artery disease), S/P CABG (coronary artery bypass graft), HTN (hypertension), benign, S/P femoral-femoral bypass surgery, S/P AAA (abdominal aortic aneurysm) repair, Atrial fibrillation Condition: Stable Coding Level of Care Code ED Ppap Coordinator for g Fwd Exam Comprehensive
[2021-11-19 14:43] LABS: INR 1.38 (0.8-1.2)
[2021-11-19 14:48] LABS: Troponin(5th) Baseline 22 ng/L (0-15)
--- NOTE | 2021-11-19 15:48 | ECG_ITS ---
[facility] Test Date: 2021-11-19 Pat Name: Steven Tee Department: Room: Gender: Male Creative Recruiter: : 1935 Requested By: Flip Frankel Order Number: [id number] Tere MD: Maine Taylor M.D. Measurements Intervals [place] Rate: 75 P: [place]: QRS: 111 QRSD: 160 T: -14 QT: 423 QTc: 475 Interpretive Statements ATRIAL FIBRILLATION RIGHT BUNDLE BRANCH BLOCK [120+ ms QRS DURATION, UPRIGHT V1, 40+ ms S IN I/aVL/V4/V5/V6] LEFT POSTERIOR FASCICULAR BLOCK [QRS AXIS > 109, INFERIOR Q] Compared to ECG 11/19/2021 13:12:21 No significant changes Electronically Signed On 11-20-2021 5:34:06 AIR CONDITIONING TECHNICIAN by Maine Taylor M.D. [email or web address]
[2021-11-19 16:03] VITALS: BP 159/85; PULSE 70; PULSE 92; RESP 28; O2SAT 95
[2021-11-19 16:52] LABS: Troponin 5 2HR 20.75 ng/L (0-15)
[2021-11-19 16:55] LABS: Troponin 5 2HR Delta -1.25 ABS# (0-10)
[2021-11-19 17:09] LABS: Alanine Aminotransferase 38 U/L (0-41); Alkaline Phosphatase 96 IU/L (40-130); Anion Gap 16.6 (5-19); Aspartate Amino Transferase 29 U/L (0-40); Blood Urea Nitrogen 31 mg/dL (8-23); Calcium 8.7 mg/dL (8.5-10.5); Carbon Dioxide 27 mmol/L (22-29); Chloride 104 mmol/L (98-107); Globulin 1.9 g/dL (1.3-4.6); Glucose 85 mg/dL (65-115); Osmolality Calculated 302 mOsm/kg (285-295); Potassium 4.6 mmol/L (3.5-5.1); Sodium 143 mmol/L (136-145); Total Bilirubin 0.5 mg/dL (0.15-1.2); Total Protein 5.9 g/dL (6.6-8.7)
[2021-11-19] MEDS: isosorbide mononitrate ER 60 mg Tablet PO (18:27)
[2021-11-19] MEDS: nitroglycerin 0.4 mg sublingual Tablet SUBLINGUAL (18:32)
--- NOTE | 2021-11-19 18:33 | PC.NURSE ---
Pt c/o increased pain in left arm, Dr. Gillespie advised, new orders entered
--- NOTE | 2021-11-19 19:48 | ECG_ITS ---
[facility] Test Date: 2021-11-19 Pat Name: Steven Tee Department: Room: Gender: Male Clay Miner: : 1935 Requested By: Flip Frankel Order Number: [id number] Tere MD: Maine Taylor M.D. Measurements Intervals [place] Rate: 72 P: [place]: QRS: 112 QRSD: 136 T: -20 QT: 419 QTc: 461 Interpretive Statements ATRIAL FIBRILLATION RIGHT BUNDLE BRANCH BLOCK [120+ ms QRS DURATION, UPRIGHT V1, 40+ ms S IN I/aVL/V4/V5/V6] LEFT POSTERIOR FASCICULAR BLOCK [QRS AXIS > 109, INFERIOR Q] Compared to ECG 11/19/2021 15:51:41 No significant changes Electronically Signed On 11-20-2021 5:33:44 SOLE CONFORMING MACHINE OPERATOR by Maine Taylor M.D. [id number]
[2021-11-19] MEDS: enoxaparin 100 mg/mL Syringe SUBCUT (20:02)
[2021-11-19] MEDS: nitroglycerin 1 gm/inch oint Pkt 1 INCH TOPICAL (20:02)
[2021-11-19] MEDS: ropinirole 2 mg Tablet PO (20:40)
[2021-11-19 21:03] LABS: Troponin 5 6HR 19.92 ng/L (0-15)
[2021-11-19 21:05] LABS: Troponin 5 6HR Delta -2.08 ng/L (0-12)
--- NOTE | 2021-11-19 22:20 | PM.HP ---
Providers/Chief Complaint Admitting Physician: Mehnaz Gonzalez MD Primary Care Provider: Alexus Hurst APN Chief Complaint: CP 3+ DAYS History of Present Illness Steven Tee is a 86 year old male who presented to the emergency room with chief complaint of chest pain. He has a history of coronary artery disease status post 2 prior coronary artery bypass surgeries. He began having some chest discomfort that radiated into his left shoulder a couple of months ago. He was started on some isosorbide 30 mg twice a day and seemed to have improvement in his symptoms and describes actually feeling much better after this was started. Last Thursday he began to experience soreness in his chest again that went into his left arm, left jaw was radiating into his teeth. He says I know it is my heart . Prior to his bypass surgeries pain was more sharp in nature and this time he has more of a soreness but otherwise it is very similar. He does have some shortness of breath with it. No nausea or vomiting. No diaphoresis. No palpitations. He has chronic lower extremity edema that might be a little bit worse than usual but he indicates that he did not take his Lasix today since he was coming into the emergency room. Pain has occurred upon awakening in the morning and later in the day with increasing frequency and decreasing intervals over the last couple of days. It has been relieved with the nitroglycerin. Lead EKG on arrival showed atrial fibrillation which is chronic for him with right bundle branch block and left anterior fascicular block. No definitive ST segment changes acutely. Initial troponin was 22 with 2-hour troponin at 20.754 delta of -1.25. 6-hour troponin was 19 with a delta of -2.08. Initially plan was to discharge patient home with outpatient follow-up to cardiology. He follows with Dr. Crystal. He has not had any recent cardiac testing to speak of. Upon getting up however patient had recurrent chest pain similar to what has been described again relieved with nitroglycerin. ED physician discussed with Dr. Crystal. Patient is being admitted for further evaluation and treatment. He is presently chest pain-free. At its worst pain is around a 6-7 out of 10. Review of Systems Const: Reports: fatigue; Denies: fever(s) or chills Eyes: Denies: change in vision ENMT: Reports: nasal congestion (Mild); Denies: throat pain Card: Reports: chest pain, irregular heart rhythm (Chronic), edema and dyspnea on exertion Resp: Reports: dyspnea and non-productive cough; Denies: productive cough or wheezing GI: Denies: abdominal pain, nausea, vomiting, diarrhea, constipation, hematochezia or melena : Denies: difficulty urinating, change in urine stream or hematuria Musc: Denies: joint pain or joint redness Skin/Breast: Denies: rash, pruritus or sores Neuro: Denies: headache(s), numbness in extremities or frequent falls Psych: Denies: anxiety or depression Howard/Lymph: Reports: easy bruising; Denies: easy bleeding Medications/Allergies Home Medications Medication Instructions Recorded Confirmed Last Taken Type apixaban 5 mg tablet 5 mg PO BID 04/16/20 10/28/21 Unknown History ascorbic acid (vitamin C) 500 mg mg PO 04/16/20 10/28/21 Unknown History capsule atenolol 25 mg tablet 25 mg PO DAILY 04/16/20 10/28/21 Unknown History atorvastatin 40 mg tablet 40 mg PO DAILY 04/16/20 10/28/21 Unknown History coenzyme Q10 300 mg capsule 300 mg PO DAILY 04/16/20 10/28/21 Unknown History diltiazem HCl 180 mg 180 mg PO DAILY 04/16/20 10/28/21 Unknown History capsule,extended release 24 hr finasteride 5 mg tablet 5 mg PO DAILY 04/16/20 10/28/21 Unknown History losartan 25 mg tablet 25 mg PO DAILY 04/16/20 10/28/21 Unknown History multivitamin 1 tab PO DAILY 04/16/20 10/28/21 Unknown History omega-3 fatty acids 1,000 mg 1,000 mg PO DAILY 04/16/20 10/28/21 Unknown History capsule alprazolam 0.5 mg tablet 0.25 mg PO .HS tab 02/11/21 10/28/21 Unknown History nitroglycerin 0.4 mg sublingual 0.4 mg SUBLINGUAL Q5M PRN #25 tab 02/11/21 10/28/21 Unknown Rx tablet ropinirole 0.5 mg tablet 2 mg PO DAILY tab 06/18/21 10/28/21 Unknown History clopidogrel 75 mg tablet 75 mg PO DAILY #90 tab 09/11/21 10/28/21 Unknown Rx potassium chloride 20 mEq 20 meq PO DAILY #90 tab 11/22/21 12/13/21 Unknown Rx tablet,extended release furosemide 40 mg tablet 40 mg PO DAILY #90 tab 11/11/21 Unknown Rx isosorbide mononitrate 30 mg PO BID 11/19/21 11/19/21 11/19/21 History Allergies Allergy/AdvReac Type Severity Reaction Status Date / Time No Known Allergies Allergy Verified 09/24/21 14:54 PFSH Acute PFSH: Medical History (Updated 11/20/21 @ 01:33 by Mehnaz Gonzalez MD) Atherosclerosis of leg with intermittent claudication Atrial fibrillation BPH (benign prostatic hyperplasia) CAD (coronary artery disease) CKD (chronic kidney disease) Diastolic CHF History of cardioversion 03/16/2019 History of sleep study (01/2021) severe obstructive sleep apnea, optimal pressure setting 6cm, with recommendation for auto-titrating CPAP 5-9 cm HTN (hypertension), benign Hyperlipidemia RLS (restless legs syndrome) Sleep apnea Varicose veins of bilateral lower extremities with other complications Surgical History (Updated 11/19/21 @ 20:14 by Mehnaz Gonzalez MD) S/P AAA (abdominal aortic aneurysm) repair with Center endograft S/P CABG (coronary artery bypass graft) 1988 X1, 2006 X2 S/P carotid endarterectomy S/P coronary angiogram 04/29/2007 S/P femoral-femoral bypass surgery Family History Brother Cancer CAD (coronary artery disease) Diabetes Mother Heart disease CAD (coronary artery disease) Diabetes Sister CAD (coronary artery disease) Denies family history of Clotting disorder Dementia Chronic kidney disease (CKD) Suicide Anesthesia complication Bleeding disorder Lung disease Stroke Social History (Updated 11/20/21 @ 01:33 by Mehnaz Gonzalez MD) Smoking and tobacco status: never smoked Alcohol intake: never Substance/Drug Use: never Lives independently: Yes Household members: spouse Marital status: Vitals/I&O/Wt Last Vital Signs Temp 98.1 F 11/19/21 13:13 Pulse 92 11/19/21 16:03 Resp 28 H 11/19/21 16:03 BP 159/85 11/19/21 16:03 Pulse Ox 95 11/19/21 16:03 Weight last 48 hrs Weight 95.254 kg Physical Exam Narrative: EXAM NARRATIVE: Constitutional: Asleep, easily arousable, cooperative and pleasant HEENT: Normocephalic, atraumatic, extraocular movements intact, moist mucous membranes Neck: Large but supple Respiratory: Scattered wheeze noted on the right that clears with coughing, clear on the left Cardiovascular: Irregularly irregular rhythm Abdomen: Soft, nontender, rotund, positive bowel sounds Extremities: 3+ edema with chronic stasis changes, no calf tenderness Skin: Dry, chronic exposure changes, no acute rashes Neuro: Speech clear, face symmetric, moves all extremities Psych: Normal affect, oriented x4 Data : 11/19/21 14:14 11/19/21 16:20 Other Labs: Radiology Impressions Chest X-Ray 11/19/21 13:47 IMPRESSION: No acute findings. Status post sternotomy with multiple fractured wires Laboratory Results WBC 8.6 10^3/uL (4.0-10.0) 11/19/21 14:14 RBC 4.65 10^6/uL (4.1-5.3) 11/19/21 14:14 Hgb 16.3 g/dL (11.7-16.6) 11/19/21 14:14 Hct 49.1 % (42.0-52.0) 11/19/21 14:14 MCV 105.6 fl (80-94) H 11/19/21 14:14 MCH 35.1 pg (28.0-34.0) H 11/19/21 14:14 MCHC 33.2 g/dL (30.0-36.0) 11/19/21 14:14 RDW 14.4 % (12.1-15.1) 11/19/21 14:14 Plt Count 164 10^3/cmm (130-400) 11/19/21 14:14 MPV 10.0 fL (7.4-10.4) 11/19/21 14:14 Neut % (Auto) 74.9 % 11/19/21 14:14 Lymph % (Auto) 10.3 % 11/19/21 14:14 Dillon % (Auto) 10.7 % 11/19/21 14:14 Eos % (Auto) 2.0 % 11/19/21 14:14 Baso % (Auto) 0.6 % 11/19/21 14:14 Neut # (Auto) 6.41 10^3/uL (1.8-7.7) 11/19/21 14:14 Lymph # (Auto) 0.9 10^3/uL (0.8-4.8) 11/19/21 14:14 Dillon # (Auto) 0.9 10^3/uL (0.2-0.9) 11/19/21 14:14 Eos # (Auto) 0.2 10^3/uL (0.0-0.8) 11/19/21 14:14 Baso # (Auto) 0.1 10^3/uL (0.0-0.1) 11/19/21 14:14 Nucleated RBC % (auto) 0 % 11/19/21 14:14 Nucleated RBCs # 0.0 /100WBC 11/19/21 14:14 PT 17.30 SECONDS (12.1-14.9) H 11/19/21 14:14 INR 1.38 (0.8-1.2) H 11/19/21 14:14 Sodium 143 mmol/L (136-145) 11/19/21 16:20 Potassium 4.6 mmol/L (3.5-5.1) 11/19/21 16:20 Chloride 104 mmol/L (98-107) 11/19/21 16:20 Carbon Dioxide 27 mmol/L (22-29) 11/19/21 16:20 Anion Gap 16.6 (5-19) 11/19/21 16:20 BUN 31 mg/dL (8-23) H 11/19/21 16:20 Creatinine 1.4 mg/dL (0.7-1.2) H 11/19/21 16:20 GFR Calculation Not Reportable 11/19/21 16:20 Glucose 85 mg/dL (65-115) 11/19/21 16:20 Calculated Osmolality 302 mOsm/kg (285-295) H 11/19/21 16:20 Calcium 8.7 mg/dL (8.5-10.5) 11/19/21 16:20 Total Bilirubin 0.5 mg/dL (0.15-1.2) 11/19/21 16:20 AST 29 U/L (0-40) 11/19/21 16:20 ALT 38 U/L (0-41) 11/19/21 16:20 Alkaline Phosphatase 96 IU/L (40-130) 11/19/21 16:20 Troponin T Baseline 22 ng/L (0-15) H 11/19/21 14:14 Troponin T 120 Minute 20.75 ng/L (0-15) H 11/19/21 16:20 Delta Troponin T -1.25 ABS# (0-10) L 11/19/21 16:20 Troponin T Hi Sens 6Hr 19.92 ng/L (0-15) H 11/19/21 20:26 Troponin T Hi Sens 6Hr Delta -2.08 ng/L (0-12) L 11/19/21 20:26 Total Protein 5.9 g/dL (6.6-8.7) L 11/19/21 16:20 Albumin 4.0 g/dL (3.5-5.2) 11/19/21 16:20 Globulin 1.9 g/dL (1.3-4.6) 11/19/21 16:20 A&P Assessment and plan (1) Unstable angina: Status: Acute (2) CAD (coronary artery disease): Status: Chronic Qualifiers: Coronary Disease-Associated Artery/Lesion type: bypass graft [place] vs. transplanted heart: [place] heart Associated angina: with unstable angina Qualified Code(s): I25.700 - Atherosclerosis of coronary artery bypass graft(s), unspecified, with unstable angina pectoris (3) CKD (chronic kidney disease): Status: Chronic Qualifiers: Chronic kidney disease stage: stage 3 (moderate) Chronic kidney disease stage 3 subtype: stage 3a (GFR 45-59) Qualified Code(s): N18.31 - Chronic kidney disease, stage 3a (4) Hyperlipidemia: Status: Chronic Qualifiers: Hyperlipidemia type: unspecified Qualified Code(s): E78.5 - Hyperlipidemia, unspecified (5) Atrial fibrillation: Status: Chronic Qualifiers: Atrial fibrillation type: persistent (not longstanding) Qualified Code(s): I48.19 - Other persistent atrial fibrillation (6) Diastolic CHF: Status: Chronic Qualifiers: Heart failure chronicity: chronic Qualified Code(s): I50.32 - Chronic diastolic (congestive) heart failure (7) HTN (hypertension), benign: Status: Chronic (8) Sleep apnea: Status: Chronic Qualifiers: Sleep apnea type: obstructive Qualified Code(s): G47.33 - Obstructive sleep apnea (adult) (pediatric) (9) BPH (benign prostatic hyperplasia): Status: Chronic Qualifiers: Lower urinary tract symptom presence: symptoms absent Qualified Code(s): N40.0 - Benign prostatic hyperplasia without lower urinary tract symptoms (10) RLS (restless legs syndrome): Status: Chronic Additional A&P Information Inpatient admission Treatment dose Lovenox administered at 8 PM 11/19/2021 Cardiology consulted, Dr. Crystal will see in the morning Continue serial cardiac enzymes and EKGs Continue isosorbide with nitroglycerin sublingual as needed, anticipate increased dose of isosorbide upon disposition Telemetry monitoring Plan for cardiac catheterization in the morning; n.p.o. after midnight Low volume IV fluids this evening Monitor renal function closely for changes Continue home aspirin, Evex and statin Currently home Eliquis is held secondary to planned intervention Continue home diltiazem and beta-blockade Continue home Lasix and potassium, monitoring overall volume status closely Hold home losartan presently secondary to low normal blood pressures with current treatment Continue home finasteride Continue home Requip Monitor closely for acute changes and address accordingly Supportive care otherwise Anticipate disposition home with outpatient follow-up Chronic Eliquis and administration of treatment dose Lovenox currently provide appropriate VTE prophylaxis, will institute SCDs in the interim Full code Attestations Medical Necessity Statement*: Anticipated stay greater than 2 midnights in an 86-year-old gentleman with a known history of coronary artery disease and prior bypass surgery. He has not had cardiac testing in some time and presents with unstable angina pattern. He has known chronic kidney disease. Plan is for cardiac catheterization in the morning, low volume IV fluids and monitoring of cardiac status and renal function post procedure. In addition adjustments have been made to some home medications to account for above. Given advanced age and comorbid conditions at risk of rapid clinical decline without monitoring both prior and after procedure. Coding Level of Care Code Acute Human Performance Consultant for Britany Oswald Diagnoses Unstable angina I20.0 CAD (coronary artery disease) I25.700 Coronary Disease-Associated Artery/Lesion type: bypass graft [place] vs. transplanted heart: [place] heart Associated angina: with unstable angina CKD (chronic kidney disease) N18.31 Chronic kidney disease stage: stage 3 (moderate) Chronic kidney disease stage 3 subtype: stage 3a (GFR 45-59) Hyperlipidemia E78.5 Hyperlipidemia type: unspecified Atrial fibrillation I48.19 Atrial fibrillation type: persistent (not longstanding) Diastolic CHF I50.32 Heart failure chronicity: chronic HTN (hypertension), benign I10 Sleep apnea G47.33 Sleep apnea type: obstructive BPH (benign prostatic hyperplasia) N40.0 Lower urinary tract symptom presence: symptoms absent RLS (restless legs syndrome) G25.81
[2021-11-19 23:09] VITALS: BP 103/67; PULSE 72; RESP 18; O2SAT 92
[2021-11-20] VITALS (77 sets, daily range): BP systolic 93–220; BP diastolic 41–174; PULSE 55–98; RESP 10–35; TEMP 35.9–36.8; O2SAT 88–98
[2021-11-20] MEDS: sodium chloride 0.45% 1,000 ML 75 ML IV (02:39)
[2021-11-20] MEDS: ALPRAZolam 0.5 mg Tablet 0.25 MG PO (03:44)
[2021-11-20 03:57] LABS: Basophils # 0.1 10^3/uL (0.0-0.1); Basophils % 0.7 %; Eosinophils # 0.3 10^3/uL (0.0-0.8); Eosinophils % 3.2 %; Hematocrit 48.6 % (42.0-52.0); Lymphocytes # 1.2 10^3/uL (0.8-4.8); Lymphocytes % 14.1 %; Mean Corpuscular HGB Conc 32.9 g/dL (30.0-36.0); Mean Corpuscular Hemoglobin 34.4 pg (28.0-34.0); Mean Corpuscular Volume 104.5 fl (80-94); Mean Platelet Volume 9.8 fL (7.4-10.4); Monocytes # 1.1 10^3/uL (0.2-0.9); Neutrophils # 5.53 10^3/uL (1.8-7.7); Neutrophils % 67.4 %; Nucleated Red Blood Cells % 0 %; Platelet Count 164 10^3/cmm (130-400); Red Blood Count 4.65 10^6/uL (4.1-5.3); Red Cell Distribution Width 14.1 % (12.1-15.1); White Blood Count 8.2 10^3/uL (4.0-10.0)
[2021-11-20 04:23] LABS: Anion Gap 12.4 (5-19); Blood Urea Nitrogen 27 mg/dL (8-23); Calcium 8.7 mg/dL (8.5-10.5); Carbon Dioxide 28 mmol/L (22-29); Chloride 107 mmol/L (98-107); Glucose 86 mg/dL (65-115); Osmolality Calculated 300 mOsm/kg (285-295); Potassium 4.4 mmol/L (3.5-5.1); Sodium 143 mmol/L (136-145)
[2021-11-20 04:36] LABS: Cholesterol 141 mg/dL (0-200); HDL Cholesterol 44 mg/dL (60-100); LDL Cholesterol Calculated 80 mg/dL (50-129); LDL HDL Ratio 1.82 RATIO (0.00-3.22); Magnesium 2.1 mg/dL (1.7-2.3); Triglycerides 86 mg/dL (0-150)
--- NOTE | 2021-11-20 08:32 | XACV_ITS ---
Exam Room: [facility] Ht: 173 cm Wt: 95 kg BSA: 2.17 m2 Gender: Male : 1935 Exam Priority: Routine Procedure(s): Procedure Description: Diagnostic procedure Procedure Description: Venous Graft Catheterization Procedure Description: Coronary Angiography MADDIERELL, Crystal; Diagnostic Cath Status: Urgent Diagnostic Findings * Left Main has no disease. * Mid Left Anterior Descending to Distal Left Anterior Descending: total occlusion, JAVIER: 0 flow. * Left Internal Mammary Artery to Distal Left Anterior Descending graft: patent. * Mid Right Coronary Artery to Distal Right Coronary Artery: total occlusion, JAVIER: 0 flow. * Proximal Circumflex: critical 95% stenosis, JAVIER: 3 flow. * Ascending Aorta to Distal Circumflex graft: patent. * Ascending Aorta to Right Posterior AV graft: patent. * Third Obtuse Marginal Branch Segment: significant 80% stenosis, JAVIER: 3 flow. * Three grafts visualized. * Coronary angiography shows right dominance. Conclusions 1. This is a complicated 85-year-old male past medical history significant for severe peripheral arterial disease with femorofemoral bypass chronically occluded iliac arteries bilaterally, were not able to cross from common femoral approach. Right radial approach was adopted right subclavian was extremely tortuous, we were able to engage and performed coronary angiogram with difficulty and were able to engage the grafts. GRANADO to LAD was not able to engage due to extreme tortuosity of the subclavian vessel however retrograde filling was observed through LAD injection. Left main was normal, circumflex has ostial 95% high-grade stenosis LAD is occluded in the middle RCA is occluded in the proximal segment. GRANADO to LAD was noted to be visualized through retrograde filling since we were not able to engage. SVG to RCA was patent. SVG to obtuse marginal was patent however soon after the touchdown there is a short high-grade stenosis. Distal to the vessel there is a bifurcating obtuse marginal vessel.. 2. This patient has redo bypass surgery with severe peripheral arterial disease. Through the right radial approach we tried to engage the SVG to obtuse marginal which is the culprit vessel . As defined above due to high tortuosity of the vessels we were not able to engage SVG to circumflex using different guides. Since we have achieved high contrast and radiation and because of the fact this will be high risk intervention, we will treat the patient medically first if he continues to have chest pain or the lesion is interfering with quality of life we may will bring him back through left radial approach to fix the upper [place] circumflex vessel or through SVG distal lesion.. 3. There is total occlusion coronary artery disease with three vessel disease. 4. Three coronary grafts visualized: all grafts patent. 5. Patient has prior CABG. Recommendations * Continue current medical management and risk factor modification. Diagnostic RX Recommendation: medical therapy and/or counseling Pressures Phase:Rest AO : 129 / 73 ( 98 ) @ 10:36:00 AM 132 / 69 ( 96 ) @ 10:41:00 AM 130 / 64 ( 89 ) @ 11:51:00 AM 144 / 69 ( 99 ) @ 12:02:00 PM Clinical Evaluation EBL: 5mL-10mL Procedural Details Pre-Procedure Time Out. Identified patient by full name and date of as verbalized by the patient/guarantor. Does the consent match the physician's order: Yes. Accurate & Complete Informed Consent: Yes. Inpatient/Outpatient History & Physical on Chart: Yes. Visualize and Verify Site with Patient/Guarantor: N/A. Relevant Radiology Images available: N/A. Pre-op teaching completed and patient verbalized understanding. The risks, benefits, and alternatives of sedation and/or procedure were discussed by physician. The patient agrees to continue. Procedure started. [facility] Clinical Fraility Score: 4: Vulnerable. Busperson Indications: Worsening Angina. Chest Pain Symptom Assessment: Atypical Angina. Correct patient, site and procedure confirmed by cath team. Current diagnosis: Chest Pain. PERRLA. Strong, equal hand extension supervisor bilaterally. Lungs clear x 5 lobes. IV Site on Arrival: 20 gauge in the right anticubital. IV Fluids: 0.9% NaCl at KVO. 200 mL infused prior to aquatic laborer. Pre Procedural Pulses: bilateral radial was 2+. Oxygen started at 2liters/min via nasal canula. right radial was prepped with chloroprep then draped in the usual sterile fashion. right groin was prepped with chloroprep then draped in the usual sterile fashion. Physician notified. Baseline sample Acquired. HR: 81 BPM. Physician arrived. Physician scrubbed in. Admit Source: Emergency department. Immediate Pre-Procedure Time Out. Correct Patient: Yes; Correct Procedure: Yes; Correct Site: Yes; Correct Patient Position: Yes; Correct Supplies: Yes; Dried Flammable Prep: Yes Blood Products Available: N/A;. Lidocaine 1% infiltrated to the right radial. Arterial access obtained. A 5 eritrean TIG catheter in over wire. Multiple views taken of left coronary artery. Phuong Shirley RN, nurse head sugar reprocess operator during procedure. Flip Rodrigues CCP/FOREIGN EXCHANGE DEALER, scrub during procedure. Catheter redirected to the RCA. Multiple views taken of right coronary artery. SVG's to PDA visualized and patent. SVG's to OM visualized and patent. Catheter out. A 5 eritrean Konrad catheter in over wire. Multiple views taken of left coronary artery. Catheter out. 6 eritrean XB 3 guide catheter was inserted over the wire. Multiple views taken of left coronary artery. Guide catheter out. 6 eritrean JR 4 guide catheter was inserted over the wire. Unable to engage GRANADO graft. Guide catheter removed. Unable to engage GRANADO graft through radial approach. Radial approach aborted and groin access obtained. Lidocaine 1% infiltrated to the right groin. Arterial access obtained with micropuncture set. Wire removed and manual pressure held to groin. Lidocaine 1% infiltrated to the left groin. Arterial access obtained with micropuncture set. Unable to advance wire due to iliac occlusion. WIre removed and manual compression held to Left groin. 6 eritrean JR 4 guide catheter was inserted over the wire in Right radial access site. Guide catheter out. 6 eritrean AL 0.75 guide catheter was inserted over the wire. ACT drawn. Results 197 seconds. Therapeutic limits - pre-heparin administration 90-150 seconds and monitoring heparin during a vascular procedure >250 seconds. Guide catheter out. 6 eritrean 3DRC guide catheter was inserted over the wire. Guide catheter out. Lidocaine 1% infiltrated to the right groin. Arterial access obtained with micropuncture set. R groin occluded. Wire removed and manual pressure held. Technical difficulty with aquatic laborer x-ray equiptment. Procedure aborted and pt rescheduled to bring back and attempt L radial access approach. A TR Band was successful obtaining hemostatsis at the Right Radial artery insertion site. Post Procedure: Pulses reassessed and unchanged. PERRLA. Strong, equal hand extension supervisor bilaterally. No VTE prophylaxis required. Medication's Wasted: Lidocaine 1% = 5 mL. Medication's Wasted: Nitro = 49.8 mg. Medication's Wasted: Heparin = 4000 u. Total IV fluids: 170 mL. Complications: none. Estimated blood loss: 5mL-10mL. Responsiveness - Normal response to verbal stimuli; alert and oriented, PERRLA. Airway - Unaffected, 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 required; spontaneous ventilation. Circulation: W/N/L, pulses unchanged. Nausea/Vomiting: No. Post-op diagnosis: Obstructive CAD. Procedure completed. Patient transferred by bed to 1st floor. Vital chart was stopped. Access Site Site: Right Radial artery Sheath Size: 6 Fr Hemostasis Method: TR Band Hemostasis Success: Successful Procedure Medications Start: 12:22 PM Stop: 12:22 PM Medication: Versed Amount: 1 mg Route: I.V. Start: 12:22 PM Stop: 12:22 PM Medication: Fentanyl Amount: 50 mcg Route: I.V. Start: 12:32 PM Stop: 12:32 PM Medication: Nitrogylcerin Amount: 200 mcg Route: I.A. Start: 12:37 PM Stop: 12:37 PM Medication: Heparin Amount: 5000 units Route: I.V. Start: 1:19 PM Stop: 1:19 PM Medication: Versed Amount: 1 mg Route: I.V. I, the attending physician, have reviewed and verified all procedure medications. Yes, all medications given per verbal order History/Risk Factors Hypertension: Yes Dyslipidemia: Yes Peripheral Arterial Disease (PAD): No Myocardial Infarction (TN): No Obesity: Yes Renal Disease: Yes Tobacco Use: Never Prior Interventions PCI: No CABG: Yes Valve Surgery: No Report Signatures Finalized by Guera Crystal MD on 12/03/2021 09:02 PM
[2021-11-20 08:39] LABS: SARS Covid-2 Antigen Negative (Negative)
--- NOTE | 2021-11-20 11:16 | P.CONIM_ITS ---
Providers/Reason For Consult Consulting Physician/Specialty*: Cardiology Reason for Consult*: Angina/coronary artery disease Attending Physician: Papito Ramirez Primary Care Provider: Alexus Hurst APN History of Present Illness History of Present Illness Steven Tee is a 86 year old male past medical history significant for severe multivessel coronary artery disease status post coronary artery bypass surgery last one was in 2006 with 2 bypasses, history of severe peripheral arterial disease status post femorofemoral bypass status post AAA repair, COPD, CHF, history of atrial fibrillation, chronic kidney disease with baseline creatinine in between 1.4-1.8 presented with worsening of chest pain along with shortness of breath relieved with nitroglycerin. His medicine were optimized despite of that he continues to do worse now little bit movement out of the bed to the washroom can bring the chest pressure and shortness on. Patient stating that he cannot live like this. He was admitted overnight still in the ER due to lack of bed. He was ruled out for acute coronary syndrome but because of the fact he continues to have chest pain on mild exertion we decided to proceed with left heart cath. Patient has been explained all risk benefit and alternative for the procedure he understand risk for contrast-induced nephropathy leading to temporary or permanent dialysis worsening of congestive heart failure arrhythmia and stroke vascular injury urgent emergent bypass surgery. He would like to proceed with it. He will be high risk for bleeding as well since he is on Eliquis. At this point if we decided to proceed with stents we will switch him to warfarin and place him on Plavix I will not continue aspirin for next 6 and month after 6-month we will plan to switch him from Plavix to aspirin. Meds/Allergies Home Medications and Allergies Home Medications Medication Instructions Recorded Confirmed Last Taken Type apixaban 5 mg tablet 5 mg PO BID 04/16/20 11/20/21 11/19/21 History ascorbic acid (vitamin C) 500 mg 500 mg PO DAILY 04/16/20 11/20/21 11/19/21 History capsule atenolol 25 mg tablet 25 mg PO DAILY 04/16/20 11/20/21 11/19/21 History atorvastatin 40 mg tablet 40 mg PO DAILY 04/16/20 11/19/21 11/18/21 History coenzyme Q10 300 mg capsule 300 mg PO DAILY 04/16/20 11/20/21 11/19/21 History diltiazem HCl 180 mg 180 mg PO DAILY 04/16/20 11/19/21 11/18/21 History capsule,extended release 24 hr finasteride 5 mg tablet 5 mg PO DAILY 04/16/20 11/19/21 11/18/21 History losartan 25 mg tablet 25 mg PO DAILY 04/16/20 11/19/21 11/18/21 History multivitamin 1 tab PO DAILY 04/16/20 11/20/21 11/19/21 History omega-3 fatty acids 1,000 mg 1,000 mg PO DAILY 04/16/20 11/20/21 11/19/21 History capsule alprazolam 0.5 mg tablet 0.25 mg PO .HS tab 02/11/21 11/19/21 11/18/21 History nitroglycerin 0.4 mg sublingual 0.4 mg SUBLINGUAL Q5M PRN #25 tab 02/11/21 11/19/21 11/19/21 Rx tablet ropinirole 0.5 mg tablet 2 mg PO BEDTIME tab 06/18/21 11/20/21 11/19/21 History clopidogrel 75 mg tablet 75 mg PO DAILY #90 tab 09/11/21 11/19/21 11/18/21 Rx potassium chloride 20 mEq 20 meq PO DAILY #90 tab 10/07/21 11/19/21 11/18/21 Rx tablet,extended release furosemide 40 mg tablet 40 mg PO DAILY #90 tab 11/11/21 11/19/21 11/18/21 Rx isosorbide mononitrate 30 mg PO BID 11/19/21 11/19/21 11/19/21 History ranolazine 500 mg PO BID #60 tab 11/21/21 Unknown Rx Allergies Allergy/AdvReac Type Severity Reaction Status Date / Time No Known Allergies Allergy Verified 09/24/21 14:54 Current Medications Current Medications Generic Name Dose Route Start Last Admin Trade Name Freq PRN Reason Stop Dose Admin Alprazolam 0.25 mg 11/19/21 23:00 11/20/21 03:44 Alprazolam 0.5 Mg Tablet PO 0.25 mg BEDTIME PRN Administration ANXIETY Sodium Chloride 1,000 mls @ 75 mls/hr 11/19/21 23:00 11/20/21 02:39 Sodium Chloride 0.45% IV 75 mls/hr .[id number] AMANDA Administration PFSH Acute PFSH: Medical History (Updated 11/22/21 @ 00:00 by ) Atherosclerosis of leg with intermittent claudication Atrial fibrillation BPH (benign prostatic hyperplasia) CAD (coronary artery disease) CKD (chronic kidney disease) Diastolic CHF History of cardioversion 03/16/2019 History of sleep study (01/2021) severe obstructive sleep apnea, optimal pressure setting 6cm, with recommendation for auto-titrating CPAP 5-9 cm HTN (hypertension), benign Hyperlipidemia RLS (restless legs syndrome) Sleep apnea Unstable angina Varicose veins of bilateral lower extremities with other complications Surgical History (Updated 11/22/21 @ 00:00 by ) S/P AAA (abdominal aortic aneurysm) repair with [place] endograft S/P CABG (coronary artery bypass graft) 1988 X1, 2006 X2 S/P carotid endarterectomy S/P coronary angiogram 04/29/2007 S/P femoral-femoral bypass surgery Family History Brother Cancer CAD (coronary artery disease) Diabetes Mother Heart disease CAD (coronary artery disease) Diabetes Sister CAD (coronary artery disease) Denies family history of Clotting disorder Dementia Chronic kidney disease (CKD) Suicide Anesthesia complication Bleeding disorder Lung disease Stroke Social History (Updated 11/20/21 @ 01:33 by Mehnaz Gonzalez MD) Smoking and tobacco status: never smoked Alcohol intake: never Lives independently: Yes Household members: spouse Marital status: Vitals/I&O/Wt Last Vital Signs Temp 98.1 F 11/20/21 02:38 Pulse 72 11/20/21 08:00 Resp 16 11/20/21 08:00 BP 164/101 11/20/21 08:00 Pulse Ox 94 11/20/21 08:00 Weight last 48 hrs Weight 210 lb Physical Exam Narrative: EXAM NARRATIVE: GENERAL: Patient is alert, awake and oriented x3. NECK: No jugular vein distension. HEENT: No cyanosis. No icterus. No pallor. HEART: Regular S1 and S2. No murmur, rub or gallop. LUNGS: Clear to auscultate bilaterally. ABDOMEN: Soft, nontender and nondistended. Positive bowel sounds. No guarding, rebound or tenderness. CENTRAL NERVOUS SYSTEM: Grossly nonfocal. EXTREMITIES: Lower extremities without edema bilaterally. Pulses not palpable in the lower extremities, both dorsalis pedis and posterior tibial. Both feet warm moist A&P Assessment and plan (1) Chest pain: Patient chest pain is therefore as above we will proceed with left heart cath. Further plan will be devised as per progress of the patient. Status: Resolved Qualifiers: Chest pain type: precordial pain Qualified Code(s): R07.2 - Precordial pain (2) S/P CABG (coronary artery bypass graft): Patient has history of redo CABG last one was in 2017, he is high risk for acute coronary syndrome, despite of optimization of medicine since he continues to have chest pain we will proceed with left heart cath (3) Atrial fibrillation: we will bridge him with Lovenox for left heart cath. I will hold anticoagulation Qualifiers: Atrial fibrillation type: persistent (not longstanding) Qualified Code(s): I48.19 - Other persistent atrial fibrillation (4) Diastolic CHF: it is compensated continue current regimen Qualifiers: Heart failure chronicity: chronic Qualified Code(s): I50.32 - Chronic diastolic (congestive) heart failure (5) S/P femoral-femoral bypass surgery: Patient is high risk for vascular complication he has history of prior peripheral arterial disease AAA repair access will be complicated as well. Patient understand the risk benefit and alternative for the procedure he understand the risk for acute limb ischemia in the face of [place] he understand the risk for limb loss due to embolic phenomena, he understand the risk for peripheral intervention in case of complication. He would like to proceed with it. (6) CKD (chronic kidney disease): Patient history of chronic kidney disease baseline creatinine in between 1.4-1.8 we will continue IV hydration. Will hold diuretics. He is high risk for contrast-induced nephropathy temporary or permanent dialysis patient said he cannot live like this and would accept the risk we will proceed with left heart cath with Planning of IV hydration and minimal contrast. 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
--- NOTE | 2021-11-20 12:01 | DCPLANNER ---
Addendum entered by Monalisa Soriano 12/10/21 10:40: Patient had a follow up appointment scheduled with [facility] - patient did attend appointment. Patient had a stress test ordered - this was cancelled due to patient being admitted to hospital. Original Note: food beverage manager had message to schedule an out patient stress test for patient, and a follow up appointment for patient with heart care. food beverage manager called heart care, spoke with Summer Schwartz, gave clinic patients information. A follow up appointment is scheduled for Thursday, November 25, 2021 at 8:15 with [facility]. Patient is aware of the scheduled appointment. food beverage manager faxed signed order for stress test to centralized scheduling, who will call patient with appointment information.
--- NOTE | 2021-11-20 12:08 | PC.NURSE ---
patient out to laboratory animal care veterinarian with staff via cart
--- NOTE | 2021-11-20 12:16 | P.PN_ITS ---
Subjective Subjective: Interval history: He is doing well currently, no further chest pain or pressure today. Blood pressure somewhat elevated. He is ambulating by the bedside. Vitals/I&O/Wt Last Vital Signs Temp 98.1 F 11/20/21 02:38 Pulse 98 11/20/21 11:00 Resp 16 11/20/21 11:00 BP 148/96 11/20/21 11:00 Pulse Ox 94 11/20/21 11:00 Weight last 48 hrs Weight 95.254 kg Physical Exam Narrative: EXAM NARRATIVE: Family are by his side. Const: COMMON NORMALS: no acute distress and patient oriented x3 HENMT: COMMON NORMALS: oropharynx normal Neck/C-Spine: COMMON NORMALS: no JVD Resp: COMMON NORMALS: normal respiratory effort and clear to auscultation bilaterally AUSCULTATION: clear to auscultation bilaterally Cardio: COMMON NORMALS: no JVD, regular rhythm, S1 normal heart sound present, S2 normal heart sound present and No murmurs present (Cardio) RHYTHM: regular rhythm HEART SOUNDS: S1 normal heart sound present and S2 normal heart sound present GI: COMMON NORMALS: Normal to inspection, nondistended, normoactive bowel sounds present, Soft to palpation and non-tender PALPATION: Yes Soft to palpation Extremity: COMMON NORMALS: no joint enlargement and no pedal edema Neuro: COMMON NORMALS: patient oriented x3 and moves all extremities Skin: COMMON NORMALS: no rashes or lesions noted GENERAL SKIN EXAM: no rashes or lesions noted Data : 11/20/21 03:46 11/20/21 03:46 A&P Assessment and plan (1) Unstable angina: Pending additional evaluation with coronary angiography today. Additional medication regimen as per cardiology recommendations. Status: Acute (2) CAD (coronary artery disease): Status: Chronic Qualifiers: Associated angina: with unstable angina Coronary Disease-Associated Artery/Lesion type: bypass graft [place] vs. transplanted heart: [place] heart Qualified Code(s): I25.700 - Atherosclerosis of coronary artery bypass graft(s), unspecified, with unstable angina pectoris (3) CKD (chronic kidney disease): Status: Chronic Qualifiers: Chronic kidney disease stage: stage 3 (moderate) Chronic kidney disease stage 3 subtype: stage 3a (GFR 45-59) Qualified Code(s): N18.31 - Chronic kidney disease, stage 3a (4) Hyperlipidemia: Status: Chronic Qualifiers: Hyperlipidemia type: unspecified Qualified Code(s): E78.5 - Hyperlipidemia, unspecified (5) Atrial fibrillation: Status: Chronic Qualifiers: Atrial fibrillation type: persistent (not longstanding) Qualified Code(s): I48.19 - Other persistent atrial fibrillation (6) Diastolic CHF: Takes Lasix at home. Receiving some gentle IV hydration in preparation for coronary angiogram. As soon as feasible discontinue IVF, resume Lasix. Status: Chronic Qualifiers: Heart failure chronicity: chronic Qualified Code(s): I50.32 - Chronic diastolic (congestive) heart failure (7) HTN (hypertension), benign: Status: Chronic (8) Sleep apnea: Status: Chronic Qualifiers: Sleep apnea type: obstructive Qualified Code(s): G47.33 - Obstructive sleep apnea (adult) (pediatric) (9) BPH (benign prostatic hyperplasia): Status: Chronic Qualifiers: Lower urinary tract symptom presence: symptoms absent Qualified Code(s): N40.0 - Benign prostatic hyperplasia without lower urinary tract symptoms (10) RLS (restless legs syndrome): Status: Chronic Attestations Medical Necessity Statement*: Continue assessment of management of chest pain and gentleman with underlying coronary artery disease, underlying chronic kidney disease, to undergo coronary angiogram today due to recurrent episodes of chest pain. Coding Level of Care Code Acute [place] Roofer for g Fwd Diagnoses Unstable angina I20.0 CAD (coronary artery disease) I25.700 Associated angina: with unstable angina Coronary Disease-Associated Artery/Lesion type: bypass graft [place] vs. transplanted heart: [place] heart CKD (chronic kidney disease) N18.31 Chronic kidney disease stage: stage 3 (moderate) Chronic kidney disease stage 3 subtype: stage 3a (GFR 45-59) Hyperlipidemia E78.5 Hyperlipidemia type: unspecified Atrial fibrillation I48.19 Atrial fibrillation type: persistent (not longstanding) Diastolic CHF I50.32 Heart failure chronicity: chronic HTN (hypertension), benign I10 Sleep apnea G47.33 Sleep apnea type: obstructive BPH (benign prostatic hyperplasia) N40.0 Lower urinary tract symptom presence: symptoms absent RLS (restless legs syndrome) G25.81
--- NOTE | 2021-11-20 12:21 | W.PM.OPSUD ---
Surgery/Procedure H&P Update DATE OF PROCEDURE: November 20, 2021 DATE H&P PERFORMED: 11/20/21 H&P UPDATE INFORMATION: I have reviewed H&P completed within last 30 days, I have examined patient prior to procedure, No changes to prior documentation and Changes to prior documentation as noted here PREOP DIAGNOSIS: Unstable angina, PATIENT REASSESSED PRIOR TO SEDATION, WITH NO CHANGE NOTED: Yes PHYSICAL EXAM: alert, oriented x 3 and clear to auscultation bilaterally AIRWAY EVAL/ANESTHESIA PLAN: ASA II and Risks, benefits & alternatives of sedation and/or procedure discussed
--- NOTE | 2021-11-20 14:49 | PC.NURSE ---
Transfer Note Patient transferred to [facility] from [facility] via bed. Handoff received from [facility]. Patient oriented to environment and equipment. Covering service notified. Orders reviewed and will continue to monitor. Family and/or counter sales representative notified.
--- NOTE | 2021-11-20 15:30 | PC.NURSE ---
spoke with Dr. Ramirez about patient blood pressure being high and non of am meds given instructions received to give am meds now and order cardiac diet for dinner
[2021-11-20] MEDS: isosorbide mononitrate ER 30 mg Tablet PO (15:45)
[2021-11-20] MEDS: losartan 50 mg Tablet 25 MG PO (15:45)
[2021-11-20] MEDS: potassium chloride ER 20 mEq Tablet PO (15:45)
[2021-11-20] MEDS: finasteride 5 mg Tablet PO (15:46)
[2021-11-20] MEDS: atorvastatin 40 mg Tablet PO (15:46)
[2021-11-20] MEDS: atenolol 50 mg Tablet 25 MG PO (15:46)
[2021-11-20] MEDS: omega-3 fatty acids 1,000 mg Capsule 1000 MG PO (15:47)
[2021-11-20] MEDS: clopidogrel 75 mg Tablet PO (16:23)
[2021-11-20] MEDS: dilTIAZem ER (24HR) 180 mg Capsule PO (16:23)
[2021-11-20] MEDS: FUROsemide 10 mg/mL SDV 4mL 40 MG IVP (16:24)
--- NOTE | 2021-11-20 19:40 | PC.NURSE ---
Spoke with Dr. mclean about patients drop in blood pressure this evening instructions received to hold 2100 order for isosrbide stop IV fluids continue to monitor bp if any problems to call Dr mclean
[2021-11-20] MEDS: ropinirole 2 mg Tablet PO (21:16)
--- NOTE | 2021-11-20 22:00 | PC.NURSE ---
Patient 2nd tr band removed. Air removed by 2ml per ten minutes. No bleeding or hematoma noted to site. Dressing applied to area. Will continue to monitor.
[2021-11-21] VITALS (53 sets, daily range): BP systolic 121–174; BP diastolic 61–94; PULSE 61–81; RESP 14–30; TEMP 36.2–36.8; O2SAT 84–99
[2021-11-21 03:54] LABS: Basophils % 0.5 %; Eosinophils # 0.1 10^3/uL (0.0-0.8); Eosinophils % 1.2 %; Hemoglobin 15.3 g/dL (11.7-16.6); Lymphocytes # 0.8 10^3/uL (0.8-4.8); Lymphocytes % 9.6 %; Mean Corpuscular HGB Conc 32.6 g/dL (30.0-36.0); Mean Corpuscular Hemoglobin 34.2 pg (28.0-34.0); Mean Corpuscular Volume 105.1 fl (80-94); Mean Platelet Volume 10.7 fL (7.4-10.4); Monocytes % 12.1 %; Neutrophils # 6.15 10^3/uL (1.8-7.7); Neutrophils % 75.4 %; Nucleated Red Blood Cells % 0 %; Platelet Count 156 10^3/cmm (130-400); Red Blood Count 4.47 10^6/uL (4.1-5.3); Red Cell Distribution Width 14.3 % (12.1-15.1); White Blood Count 8.2 10^3/uL (4.0-10.0)
[2021-11-21] MEDS: atenolol 50 mg Tablet 25 MG PO (08:45)
[2021-11-21] MEDS: finasteride 5 mg Tablet PO (08:45)
[2021-11-21] MEDS: atorvastatin 40 mg Tablet PO (08:45)
[2021-11-21] MEDS: potassium chloride ER 20 mEq Tablet PO (08:46)
[2021-11-21] MEDS: omega-3 fatty acids 1,000 mg Capsule 1000 MG PO (08:46)
[2021-11-21] MEDS: dilTIAZem ER (24HR) 180 mg Capsule PO (08:46)
[2021-11-21] MEDS: losartan 50 mg Tablet 25 MG PO (08:46)
[2021-11-21] MEDS: FUROsemide 40 mg Tablet PO (08:46)
[2021-11-21] MEDS: clopidogrel 75 mg Tablet PO (08:46)
--- NOTE | 2021-11-21 09:14 | PM.PN ---
Subjective Subjective: Interval history: Patient underwent peripheral angiogram it was difficult access since patient has bilateral severe peripheral arterial disease with femorofemoral bypass therefore we were not able to go from right or left common femoral. Access was approached through the right radial patient has extreme tortuosity of the subclavian vessel which are highly calcified. I was able to perform left heart cath which showed ostial left main mid occluded LAD high grade ostial circumflex stenosis and chronically occluded RCA. GRANADO to LAD was patent and mid to distal segment with retrograde competitive flow observed through left main vessel injection as we were not able to get to GRANADO through the right radial , SVG to RCA was patent SVG to circumflex showed at touchdown there is high-grade bifurcating vessel stenosis which is 95% hazy, it is a high risk stenosis. We tried to engage the SVG to circumflex with the help of multiple guides including right side guide and AL 0.75 but due to not good contact approximation of the guide we aborted the procedure since I do not have good backup of a guide in case of any complication. We decided that we will treat patient medically with optimization of medicine including Ranexa. If he continues to have angina, we will bring him back with left radial approach attempt. Vitals/I&O/Wt Last Vital Signs Temp 97.2 F L 11/21/21 08:00 Pulse 79 11/21/21 08:00 Resp 18 11/21/21 08:00 BP 144/94 11/21/21 08:00 Pulse Ox 95 11/21/21 08:00 11/20/21 11/21/21 11/21/21 22:59 06:59 14:59 Intake Total 400 / 400 100 / 500 480 / 480 Output Total 200 / 200 100 / 300 450 / 450 Balance 200 / 200 0 / 200 30 / 30 Weight last 48 hrs Weight 210 lb Physical Exam Narrative: EXAM NARRATIVE: GENERAL: Patient is alert, awake and oriented x3. NECK: No jugular vein distension. HEENT: No cyanosis. No icterus. No pallor. HEART: Regular S1 and S2. No murmur, rub or gallop. LUNGS: Clear to auscultate bilaterally. ABDOMEN: Soft, nontender and nondistended. Positive bowel sounds. No guarding, rebound or tenderness. CENTRAL NERVOUS SYSTEM: Grossly nonfocal. EXTREMITIES: Lower extremities without edema bilaterally. Pulses not palpable in the lower extremities, both dorsalis pedis and posterior tibial. Both feet warm moist Const: COMMON NORMALS: alert Resp: COMMON NORMALS: clear to auscultation bilaterally AUSCULTATION: clear to auscultation bilaterally Neuro: SENSORIUM/ORIENTATION: Yes alert Data : 11/21/21 03:45 11/21/21 10:35 A&P Assessment and plan (1) Chest pain: After Ranexa patient chest pain got better Status: Resolved Qualifiers: Chest pain type: precordial pain Qualified Code(s): R07.2 - Precordial pain (2) S/P CABG (coronary artery bypass graft): Plan as above we will continue to treat him medically unless he has lifestyle limiting angina in that case we will approach through left radial artery (3) Atrial fibrillation: Will resume anticoagulation he is rate controlled Qualifiers: Atrial fibrillation type: persistent (not longstanding) Qualified Code(s): I48.19 - Other persistent atrial fibrillation (4) Diastolic CHF: He appeared to be slightly volume overloaded I am able to give him less Qualifiers: Heart failure chronicity: chronic Qualified Code(s): I50.32 - Chronic diastolic (congestive) heart failure (5) S/P femoral-femoral bypass surgery: Patient is high risk for vascular complication he has history of prior peripheral arterial disease AAA repair access will be complicated as well. Patient understand the risk benefit and alternative for the procedure he understand the risk for acute limb ischemia in the face of [place] he understand the risk for limb loss due to embolic phenomena, he understand the risk for peripheral intervention in case of complication. He would like to proceed with it. (6) CKD (chronic kidney disease): Hold hydration. as patient appears to be slightly decompensated. Continue to monitor CKD creatinine is 1.1 which is within normal range. Qualifiers: Chronic kidney disease stage: stage 3 (moderate) Chronic kidney disease stage 3 subtype: stage 3a (GFR 45-59) Qualified Code(s): N18.31 - Chronic kidney disease, stage 3a Attestations Medical Necessity Statement*: Patient required continuation of hospitalization for the above defined care Coding Level of Care Code Established Pt Acute Director Of Channel Marketing for [facility] D[facility] Patient Type Established History Detailed Exam Detailed Medical Decision Making Moderate Complexity Diagnoses Chest pain R07.2 Chest pain type: precordial pain S/P CABG (coronary artery bypass graft) Z95.1 Atrial fibrillation I48.19 Atrial fibrillation type: persistent (not longstanding) Diastolic CHF I50.32 Heart failure chronicity: chronic S/P femoral-femoral bypass surgery Z95.828 CKD (chronic kidney disease) N18.31 Chronic kidney disease stage: stage 3 (moderate) Chronic kidney disease stage 3 subtype: stage 3a (GFR 45-59)
[2021-11-21] MEDS: ranolazine (12HR) 500 mg Tablet PO (10:17)
[2021-11-21] MEDS: isosorbide mononitrate ER 30 mg Tablet PO (10:17)
--- NOTE | 2021-11-21 10:39 | PC.NURSE ---
Family wants to call the new Rx to [facility]
[2021-11-21 11:04] LABS: Blood Urea Nitrogen 29 mg/dL (8-23); Calcium 9.5 mg/dL (8.5-10.5); Carbon Dioxide 23 mmol/L (22-29); Chloride 103 mmol/L (98-107); Glucose 86 mg/dL (65-115); Osmolality Calculated 295 mOsm/kg (285-295); Sodium 140 mmol/L (136-145)
[2021-11-21 11:05] LABS: Anion Gap 18.7 (5-19); Potassium 4.7 mmol/L (3.5-5.1)
--- NOTE | 2021-11-21 11:11 | PC.NURSE ---
Discharge Note Patient discharged to home via wheelchair accompanied by family. Discharge instructions reviewed with patient and/or junior sales representative. Family stated that Dr. Crystal instructed to the and dgtr in law that pt has to continue the Imdur as prescribed along with the new Ranexa. Discharge med list updated and reviewed again with dgtr in law and at bedside. Informed hospitalist on the updated med list. Mobile pharmacy medications and/or prescriptions provided. Belongings/home medications returned.
--- NOTE | 2021-11-21 11:18 | PC.NURSE ---
notified Dr the imdur noted to be duplicate per Dr. Ramirez that is why one note was discontinued in the discharge med list. Instructed pt and family to continue Imdur as prescribed by guard supervisor.
--- NOTE | 2021-11-21 17:16 | P.DS_ITS ---
Discharge Providers Date of Admission: 11/20/21 00:53 Date of Discharge: November 21, 2021 Attending Provider at Admission: Papito Ramirez Attending Provider at Discharge: Papito Ramirez Primary Care Provider: Alexus Hurst APN Diagnoses at Discharge Discharge Diagnosis (1) Unstable angina: Status: Acute (2) CAD (coronary artery disease): Status: Chronic Qualifiers: Associated angina: with unstable angina Coronary Disease-Associated Artery/Lesion type: bypass graft [place] vs. transplanted heart: [place] heart Qualified Code(s): I25.700 - Atherosclerosis of coronary artery bypass graft(s), unspecified, with unstable angina pectoris (3) CKD (chronic kidney disease): Status: Chronic Qualifiers: Chronic kidney disease stage: stage 3 (moderate) Chronic kidney disease stage 3 subtype: stage 3a (GFR 45-59) Qualified Code(s): N18.31 - Chronic kidney disease, stage 3a (4) Hyperlipidemia: Status: Chronic Qualifiers: Hyperlipidemia type: unspecified Qualified Code(s): E78.5 - Hyperlipidemia, unspecified (5) Atrial fibrillation: Status: Chronic Qualifiers: Atrial fibrillation type: persistent (not longstanding) Qualified Code(s): I48.19 - Other persistent atrial fibrillation (6) Diastolic CHF: Status: Chronic Qualifiers: Heart failure chronicity: chronic Qualified Code(s): I50.32 - Chronic diastolic (congestive) heart failure (7) HTN (hypertension), benign: Status: Chronic (8) Sleep apnea: Status: Chronic Qualifiers: Sleep apnea type: obstructive Qualified Code(s): G47.33 - Obstructive sleep apnea (adult) (pediatric) (9) BPH (benign prostatic hyperplasia): Status: Chronic Qualifiers: Lower urinary tract symptom presence: symptoms absent Qualified Code(s): N40.0 - Benign prostatic hyperplasia without lower urinary tract symptoms (10) RLS (restless legs syndrome): Status: Chronic Reason for Visit Reason for Visit: CP 3+ DAYS Hospital Course Hospital Course Pleasant 86-year-old gentleman with history of CAD, severe, multivessel, status post CABG in 2006 with 2 bypasses, history of PAD, status post femorofemoral bypass status post AAA repair, COPD, CHF, A. fib, CKD was assessed in the hospital by cardiology due to worsening chest pain, shortness of breath with relief from nitroglycerin, was assessed by coronary angiography, but with very difficult access, with history of femorofemoral bypass, as well as difficult access in the right wrist with tortuous vessel, limited room to maneuver, GRANADO- LAD thought to be probably patent, but could not easily assess, could not engage with the catheter, saphenous to RCA graft patent, saphenous graft to diagonal with distal stenosis difficult to be able to access to repair, procedure ended without additional intervention. He is started on Ranexa. Symptomatically he has been doing well in the hospital, and if continues to do well with medical management, this will be continued due to difficulty in attempting access and repair. In case of significant lifestyle limiting persistent symptoms additional angiography and PCI risk will be weighed. He is asked to follow-up with cardiology in office in 1 week. He and family have been in agreement with plan, and had no additional questions. Physical Exam Narrative: EXAM NARRATIVE: Family are by his side. Const: COMMON NORMALS: no acute distress and patient oriented x3 HENMT: COMMON NORMALS: oropharynx normal Neck/C-Spine: COMMON NORMALS: no JVD Resp: COMMON NORMALS: normal respiratory effort and clear to auscultation bilaterally AUSCULTATION: clear to auscultation bilaterally Cardio: COMMON NORMALS: no JVD, regular rhythm, S1 normal heart sound present, S2 normal heart sound present and No murmurs present (Cardio) RHYTHM: regular rhythm HEART SOUNDS: S1 normal heart sound present and S2 normal heart sound present GI: COMMON NORMALS: Normal to inspection, nondistended, normoactive bowel sounds present, Soft to palpation and non-tender PALPATION: Yes Soft to palpation Extremity: COMMON NORMALS: no joint enlargement and no pedal edema OTHER: R wrist dressing, clean, no swelling or bruising. Neuro: COMMON NORMALS: patient oriented x3 and moves all extremities Skin: COMMON NORMALS: no rashes or lesions noted GENERAL SKIN EXAM: no rashes or lesions noted Discharge Data Data Completed and Pending: Completed Studies During Hospitalization Category Date Time Status XR chest 1V becca ble [id number] Stat Exams 11/19/21 13:47 Completed Pending at discharge Category Date Time Status [employer] request for service Routin e Exams 11/20/21 08:32 Taken Labs from last 24 hours 11/21/21 11/21/21 11/21/21 10:35 03:45 03:45 WBC 8.2 RBC 4.47 Hgb 15.3 Hct 47.0 MCV 105.1 H MCH 34.2 H MCHC 32.6 RDW 14.3 Plt Count 156 MPV 10.7 H Neut % (Auto) 75.4 Lymph % (Auto) 9.6 [place] % (Auto) 12.1 Eos % (Auto) 1.2 Baso % (Auto) 0.5 Neut # (Auto) 6.15 Lymph # (Auto) 0.8 [place] # (Auto) 1.0 H Eos # (Auto) 0.1 Baso # (Auto) 0.0 Nucleated RBC % (a uto) 0 Nucleated RBCs # 0.0 Sodium 140 Cancelled Potassium 4.7 Cancelled Chloride 103 Cancelled Carbon Dioxide 23 Cancelled Anion Gap 18.7 Cancelled BUN 29 H Cancelled Creatinine 1.1 Cancelled GFR Calculation Not Reportable Cancelled Glucose 86 Cancelled Calculated Osmolal ity 295 Cancelled Calcium 9.5 Cancelled Vitals: Last Vital Signs Temp 97.7 F 11/21/21 11:10 Pulse 66 11/21/21 11:10 Resp 18 11/21/21 11:10 BP 153/79 11/21/21 11:10 Pulse Ox 99 11/21/21 11:10 Discharge Plan Discharge Patient Disposition: Home Condition: Stable Prescriptions: New ranolazine 500 mg Tablet Extended Release 12 Hr 500 mg PO BID Qty: 60 RF: 3 Continued atenolol 25 mg tablet 25 mg PO DAILY RF: 0 atorvastatin 40 mg tablet 40 mg PO DAILY RF: 0 diltiazem HCl [Cartia XT] 180 mg capsule,extended release 24hr 180 mg PO DAILY RF: 0 Co Q-10 300 mg capsule 300 mg PO DAILY RF: 0 Eliquis 5 mg tablet 5 mg PO BID RF: 0 finasteride 5 mg tablet 5 mg PO DAILY RF: 0 omega-3 fatty acids [Fish Oil Concentrate] 1,000 mg capsule 1,000 mg PO DAILY RF: 0 losartan 25 mg tablet 25 mg PO DAILY RF: 0 ascorbic acid (vitamin C) 500 mg capsule 500 mg PO DAILY RF: 0 multivitamin Tablet 1 tab PO DAILY RF: 0 alprazolam 0.5 mg tablet 0.25 mg PO .HS RF: 0 ropinirole 0.5 mg tablet 2 mg PO BEDTIME RF: 0 nitroglycerin [Nitrostat] 0.4 mg tablet, sublingual 0.4 mg SUBLINGUAL Q5M PRN (Reason: chest pain) Qty: 25 RF: 3 clopidogrel 75 mg tablet 75 mg PO DAILY Qty: 90 RF: 3 potassium chloride 20 mEq tablet extended release 20 meq PO DAILY Qty: 90 RF: 3 furosemide 40 mg tablet 40 mg PO DAILY Qty: 90 RF: 1 isosorbide mononitrate 30 mg tablet extended release 24 hr 30 mg PO BID RF: 0 Discontinued isosorbide mononitrate 30 mg tablet extended release 24 hr 30 mg PO BID Qty: 180 RF: 3 Discharge Orders: Discharge Order (Routine); Ordered 11/21/21 Ordered By: Papito Ramirez Referrals: Alexus Hurst APN [Primary Care Provider] - 11/27/21 2:30 pm Lelo Talley FNP [Nurse Practitioner] - 11/28/21 4:00 pm Discharge Diet: Cardiac Discharge Activity: Increase activity as tolerated and Limit activity as instructed Patient Instructions: Ranolazine (By mouth) (Ranexa), Chest Pain Stoplight, Post Angiogram Home Care Instructions Activity Restrictions/Additional Instructions: Please do not lift more than 5 to 10 pounds for 3 days. In case you notice significant swelling, pulsatile mass, any numbness or weakness in the right hand, seek medical attention immediately. Similarly seek medical attention if you have severe or not resolving chest pain or discomfort. Please follow-up with your heart doctor in office to for reassessment and if needed to seek additional evaluation by coronary angiography. Discharge Attestations Time Spent in Discharge Care*: greater than 30 min Quality Metrics Clinical Quality Measures During this hospital stay, did patient experience: None Coding Level of Care Code Acute g FW DC note Diagnoses Unstable angina I20.0 CAD (coronary artery disease) I25.700 Associated angina: with unstable angina Coronary Disease-Associated Artery/Lesion type: bypass graft [place] vs. transplanted heart: [place] heart CKD (chronic kidney disease) N18.31 Chronic kidney disease stage: stage 3 (moderate) Chronic kidney disease stage 3 subtype: stage 3a (GFR 45-59) Hyperlipidemia E78.5 Hyperlipidemia type: unspecified Atrial fibrillation I48.19 Atrial fibrillation type: persistent (not longstanding) Diastolic CHF I50.32 Heart failure chronicity: chronic HTN (hypertension), benign I10 Sleep apnea G47.33 Sleep apnea type: obstructive BPH (benign prostatic hyperplasia) N40.0 Lower urinary tract symptom presence: symptoms absent RLS (restless legs syndrome) G25.81
== END 2021-11-21 11:20 | disposition home or self-care (01) | DRG 287 ==
LOC: ER 19:14 → ER IP 11-20 01:06 → CSU 11-20 15:00
PROVIDERS: Hospitalist; Internal Medicine Cardiovascular Disease; Nurse Practitioner Family; Admitting Provider Internal Medicine; Emergency Provider Family Medicine; PCP Nurse Practitioner; Visit Provider Internal Medicine
PROC: B2181ZZ Fluoroscopy of Left Internal Mammary Bypass Graft using Low Osmolar Contrast (ICD-10-PCS; principal; 2021-11-20 12:00)
DX: I25.700 Atherosclerosis of coronary artery bypass graft(s), unspecified, with unstable angina pectoris (principal); I48.19 Other persistent atrial fibrillation; I50.32 Chronic diastolic (congestive) heart failure; I13.0 Hypertensive heart and chronic kidney disease with heart failure and stage 1 through stage 4 chronic kidney disease, or unspecified chronic kidney disease; I45.2 Bifascicular block; N18.31 Chronic kidney disease, stage 3a; E78.5 Hyperlipidemia, unspecified; Z79.01 Long term (current) use of anticoagulants; N40.0 Benign prostatic hyperplasia without lower urinary tract symptoms; G47.33 Obstructive sleep apnea (adult) (pediatric); Z95.1 Presence of aortocoronary bypass graft; I73.9 Peripheral vascular disease, unspecified; Z79.82 Long term (current) use of aspirin; J44.9 Chronic obstructive pulmonary disease, unspecified; G25.81 Restless legs syndrome; Z95.820 Peripheral vascular angioplasty status with implants and grafts
CPT/HCPCS: 36415; 71045; 80048; 80053; 80061; 83735; 84484; 85025; 85347; 85610; 87426; 93005; 93455; 96360; 96361; 96372; 99285; C1769; C1887; C1894; J1644; J1650; J1940; J2250; J3010; J3490; Q9967

== ENCOUNTER → 2022-03-06 13:42 | Outpatient (BNVA) | payer MEDICARE, OTHER, SELFPAY | PROVIDERS: PCP Nurse Practitioner; Visit Provider Internal Medicine | DX: I11.0 Hypertensive heart disease with heart failure (principal); I50.32 Chronic diastolic (congestive) heart failure; I48.19 Other persistent atrial fibrillation; Z98.890 Other specified postprocedural states; Z86.79 Personal history of other diseases of the circulatory system; Z95.1 Presence of aortocoronary bypass graft; F17.210 Nicotine dependence, cigarettes, uncomplicated; Z79.01 Long term (current) use of anticoagulants | CPT/HCPCS: 99214 ==

== ENCOUNTER 2022-07-17 14:32 | Outpatient (CLI) | payer MEDICARE, OTHER, SELFPAY ==
--- NOTE | 2022-07-17 14:54 | USR_ITS ---
PROCEDURE INFORMATION: Exam: US Duplex Lower Extremity Arteries Exam date and time: 07/17/2022 3:19 PM Age: 87 years old Clinical indication: Pain; Leg, lower; Bilateral; Prior surgery; Surgery date: 6+ months; Surgery type: Fem-fem bypass graft 2016; Additional info: Cellulitis of unspecified part of limb/localized edema TECHNIQUE: Imaging protocol: Real-time ultrasound scan of the arteries of the bilateral lower extremities with 2-D walker scale, color Doppler flow and spectral waveform analysis. Images documented and saved. COMPARISON: CT angio chest w abd pel w con 07/30/2017 8:12 PM FINDINGS: Right external iliac artery: No stenosis or occlusion. Right common femoral artery: Anastomosis of the femoral femoral bypass graft and right common femoral artery is patent. No stenosis or occlusion. Monophasic waveforms with spectral broadening Right superficial femoral artery: Occlusion in the mid right superficial femoral artery. Proximal and distal right superficial femoral artery are patent with monophasic waveforms, parvus tardus distally. Right popliteal artery: No stenosis or occlusion. Monophasic parvus tardus type waveform Right calf/foot arteries: Right posterior tibial artery and dorsalis pedis artery are patent with monophasic parvus tardus type waveform. Left external iliac artery: Proximal occlusion. Mid and distal are patent with monophasic waveform. Left common femoral artery: Patent with monophasic waveform Left superficial femoral artery: No occlusion or stenosis. Monophasic waveform Left popliteal artery: No stenosis or occlusion. There is a Pinedo cyst in the left popliteal fossa. Left calf/foot arteries: Left posterior tibial is patent with monophasic parvus tardus type waveform. Left dorsalis pedis artery is patent with monophasic parvus tardus type waveform Other findings: Femoral femoral bypass graft is patent. US/[place] [id number] IMPRESSION: 1. Moderate to severe peripheral vascular disease with occlusion of the mid right superficial femoral artery and left external iliac artery. 2. Pinedo cyst left popliteal fossa 3. Patent femoral femoral bypass graft.
== END 2022-07-17 14:33 | disposition home or self-care (01) ==
LOC: RAD 14:47
PROVIDERS: PCP Nurse Practitioner; Visit Provider Nurse Practitioner Family
DX: R60.0 Localized edema (principal); L03.119 Cellulitis of unspecified part of limb; I73.9 Peripheral vascular disease, unspecified; M71.22 Synovial cyst of popliteal space [Baker], left knee
CPT/HCPCS: 93925

== ENCOUNTER 2022-08-13 09:53 | Outpatient (CLI) | payer MEDICARE, OTHER, SELFPAY | END 2022-08-13 09:54 | disposition home or self-care (01) | LOC: RT 09:54 | PROVIDERS: PCP Nurse Practitioner Family; Visit Provider Nurse Practitioner Family | DX: J44.9 Chronic obstructive pulmonary disease, unspecified (principal) | CPT/HCPCS: 94060; 94726; 94729; J7611 ==

== ENCOUNTER → 2022-09-04 14:44 | Outpatient (BNVA) | payer MEDICARE, OTHER, SELFPAY | PROVIDERS: PCP Nurse Practitioner Family; Visit Provider Internal Medicine | DX: I11.0 Hypertensive heart disease with heart failure (principal); I50.32 Chronic diastolic (congestive) heart failure; I48.19 Other persistent atrial fibrillation; Z95.1 Presence of aortocoronary bypass graft; Z98.890 Other specified postprocedural states; Z86.79 Personal history of other diseases of the circulatory system; F17.200 Nicotine dependence, unspecified, uncomplicated | CPT/HCPCS: 99214 ==

== ENCOUNTER 2022-11-19 07:45 | Outpatient (CLI) | payer MEDICARE, OTHER, SELFPAY ==
--- NOTE | 2022-11-19 07:54 | CT_ITS ---
WS: [id number] LDCT LUNG CANCER SCREENING TECHNIQUE: Noncontrast CT of the chest with coronal and sagittal reformatted images. CLINICAL INFORMATION: NICOTINE DEPENDENCE CIGARETTES COMPARISON: CTa chest July 13, 2021 DLP: 73.69 mGy.cm DIvol: Mean CTDIvol: 1.60 (mGy) All CT scans at [facility] use at least one of these dose optimization techniques: automat ed exposure control; mA and/or kV adjustment per patient size (includes targeted exams where dose is matched to clinical indication); or iterative reconstruction. FINDINGS: 3 mm noncalcified nodule in the LEFT upper lobe near the fissure. A few tiny subpleural nod ules in the RIGHT upper lobe. Cardiomegaly. Sternotomy. CABG. Coronary calcification. Normal caliber thoracic aorta. Aortic calcifi cation. No mediastinal or hilar lymphadenopathy. Small esophageal hiatal hernia. Splenic artery calcification. Small nodule LEFT adrenal gland measuri ng 10 mm nonspecific but likely adenoma.. Mild thoracic kyphosis. Anterior wedging in the lower thora cic spine. Hepatic cysts in the LEFT hepatic lobe unchanged in the prior CTA. CT/CT lung screening [id number] IMPRESSION: LUNG-RADS: 2-Benign Appearance or Behavior FOLLOW UP: 12 Month: Continue annual screening with LDCT
== END 2022-11-19 07:46 | disposition home or self-care (01) ==
PROVIDERS: PCP Nurse Practitioner Family; Visit Provider Nurse Practitioner Family
DX: Z12.2 Encounter for screening for malignant neoplasm of respiratory organs (principal); Z87.891 Personal history of nicotine dependence
CPT/HCPCS: 71271

== ENCOUNTER 2022-12-02 10:24 | Outpatient (CLI) | payer MEDICARE, OTHER, SELFPAY ==
--- NOTE | 2022-12-02 10:35 | US_ITS ---
WS: [id number] RENAL ULTRASOUND HISTORY: STAGE 3B CHRONIC KIDNEY DZ COMPARISON: Noncontrast CT 08/18/2019 TECHNIQUE: 2-D and color Doppler imaging of the kidney submitted. Right kidney: 9.6 cm x 5.3 cm x 6.6 cm. Normal size kidney. Very slight increased echogenicity. Lobulated cyst with septation or 2 adjacent c ysts along the mid kidney measures 7.4 x 5.4 x 3.7 cm. No solid mass identified. No obstruction. Left kidney: 9.9 cm x 4.6 cm x 5.2 cm. Normal echogenicity with no hydronephrosis or mass. Aorta: Normal. Urinary Bladder: Mild diffuse bladder wall thickening may be due to partial outlet obstruction. The p rostate gland is hypoechoic and enlarged measuring 4.6 x 3.8 x 4.1 cm. US/US renal BI* [id number] IMPRESSION: 1. No renal obstruction or solid mass. 2. Single lobulated cyst with septation versus just adjacent cysts RIGHT kidne y measures 7.4 x 5.4 x 3.7 cm. 3. Diffuse bladder wall thickening and prostate enlargement. Bladder wall thic kening is probably due to long-standing outlet obstruction.
== END 2022-12-02 10:25 | disposition home or self-care (01) ==
LOC: RAD 10:31
PROVIDERS: PCP Nurse Practitioner Family; Visit Provider Internal Medicine
DX: N18.32 Chronic kidney disease, stage 3b (principal); N40.0 Benign prostatic hyperplasia without lower urinary tract symptoms
CPT/HCPCS: 76770

== ENCOUNTER 2023-02-24 13:25 | Outpatient (CLI) | payer MEDICARE, OTHER, SELFPAY ==
--- NOTE | 2023-02-24 13:30 | USCV_ITS ---
Steven Tee Age: 87 Gender: M : 1935 Exam Date: 02/24/2023 15:32 Ordering Phys: Brant Sue M.D ([email or web address]) Technologist: NIRAJ [place] [facility]ication: sob/ chest pain BP: 130 / 80 HR: 69 Rhythm: Sinus Technical Quality: Adequate MEASUREMENTS (Male / Female) Normal Values 2D ECHO LV Diastolic Diameter PLAX 5.3 cm 4.2 - 5.9 / 3.9 - 5.3 cm LV Systolic Diameter PLAX 3.4 cm IVS Diastolic Thickness 1.0 cm 0.6 - 1.0 / 0.6 - 0.9 cm IVS Systolic Thickness 1.3 cm LVPW Diastolic Thickness 1.0 cm 0.6 - 1.0 / 0.6 - 0.9 cm LVPW Systolic Thickness 1.3 cm LVOT Diameter 2.0 cm LV Ejection Fraction 2D Teich 64.2 % LV Ejection Fraction MOD 2C 64.6 % LV Ejection Fraction 2C AL 63.0 % LA Diameter 4.5 cm LA Width 3.6 cm LA Height 5.9 cm RA Width 4.3 cm RA Height 5.9 cm Aorta at Sinotubular Diameter 2.1 cm IVC Diameter 2.0 cm M-MODE Aortic Annulus Diameter 2.0 cm LA Ao Ratio MM 2.4 MV E Point Septal Separation 0.3 cm DOPPLER AV Peak Velocity 239.3 cm/s LVOT Peak Velocity 99.0 cm/s AV Area Cont Eq vti 1.2 cm squared AV Area Cont Eq pk 1.3 cm squared MV Peak Velocity 122.0 cm/s MV Area PHT 5.9 cm squared Mitral E to A Ratio 2.5 MV E' Velocity 51.0 cm/s Mitral E to MV E' Ratio 7.4 Mitral E to LV E' Lateral Ratio 7.6 Mitral E to LV E' Septal Ratio 7.3 TR Peak Velocity 313.6 cm/s TR Peak Gradient 39.3 mmHg TR Mean Velocity 234.9 cm/s TR Mean Gradient 25.0 mmHg TR Velocity Time Integral 82.6 cm Right Atrial Pressure 3.0 mmHg Pulmonary Artery Systolic Pressu 42.3 mmHg PV Peak Velocity 95.7 cm/s RV Acceleration Time 0.1 s RV Ejection Time 0.3 s RV AcT/ET 0.4 FINDINGS Left Ventricle Left ventricle is normal size. LV systolic function is normal with EF of 50 to 55%. No regional wall motion abnormalities are seen. Right Ventricle RV is mild to moderately hypokinetic. Right Atrium Dilated Left Atrium Dilated Mitral Valve Structurally normal mitral valve. Mild mitral regurgitation Aortic Valve Aortic valve is thickened and calcified. Mild aortic stenosis with ANA of 1.27cm2 with mean gradient across aortic valve of 11mmHg. Mild aortic regurgitation Tricuspid Valve Trace tricuspid regurgitation. Insufficient TR jet to calculate RVSP. Pulmonic Valve Mild pulmonic regurgitation Pericardium Normal Aorta Normal in size IVC Appears to be normal CONCLUSIONS LV systolic function is normal with EF 50 to 55%. RV is mild to moderately hypokinetic Biatrial enlargement. Mild mitral regurgitation Mild aortic stenosis with aortic valve area of 1.27 cm squared with mean gradient across aortic valve of 11 mmHg Mild aortic regurgitation Mild tricuspid regurgitation Mild pulmonic regurgitation No comparison studies are available Brant Sue MD (Electronically Signed) Final Date: 10 March 2023 20:19 S
== END 2023-02-24 13:26 | disposition home or self-care (01) ==
LOC: RAD 13:30
PROVIDERS: PCP Nurse Practitioner Family; Visit Provider Internal Medicine
DX: R06.02 Shortness of breath (principal); R07.9 Chest pain, unspecified
CPT/HCPCS: 93306

== ENCOUNTER → 2023-03-05 14:24 | Outpatient (BNVA) | payer MEDICARE, OTHER, SELFPAY | PROVIDERS: PCP Nurse Practitioner Family; Visit Provider Internal Medicine | DX: Z98.890 Other specified postprocedural states (principal); Z86.79 Personal history of other diseases of the circulatory system; Z95.1 Presence of aortocoronary bypass graft; I48.19 Other persistent atrial fibrillation; I13.0 Hypertensive heart and chronic kidney disease with heart failure and stage 1 through stage 4 chronic kidney disease, or unspecified chronic kidney disease; F17.200 Nicotine dependence, unspecified, uncomplicated; N18.9 Chronic kidney disease, unspecified; I50.32 Chronic diastolic (congestive) heart failure; Z79.01 Long term (current) use of anticoagulants | CPT/HCPCS: 99214 ==

== ENCOUNTER 2023-06-15 09:39 | Inpatient (IN) | payer MEDICARE, OTHER, SELFPAY ==
[2023-06-15] VITALS (11 sets, daily range): BP systolic 92–134; BP diastolic 56–89; PULSE 77–103; RESP 14–28; TEMP 36.5–37; O2SAT 94–99; BMI 29.6
--- NOTE | 2023-06-15 10:26 | USCV_ITS ---
Steven Tee Age: 88 Gender: M : 1935 Exam Date: 06/15/2023 10:39 Ordering Phys: New Gillespie DO Technologist: KAREEM Exam Location: [facility] [place] Indication: LE pain and swelling HISTORY: Lower extremity swelling. Lower extremity pain. PROCEDURES: Venous duplex imaging was performed in only the left lower extremity. The following venous structures were evaluated: common femoral vein, profunda vein, proximal portion of the greater saphenous vein, superficial femoral vein, and the popliteal vein. In addition, the posterior tibial and peroneal trunk were evaluated. Serial compression, augmentation maneuvers, and spectral Doppler flow evaluation were performed. FINDINGS: No evidence of DVT seen in any vessel visualized at this time CONCLUSIONS No evidence of left lower extremity DVT. Lobulated Popliteal cyst measuring 3.8 x 2.6 x 1.6cm with internal debris Jeff Tafoya MD (Electronically Signed) Final Date: 15 June 2023 12:22 S
--- NOTE | 2023-06-15 10:39 | W.ED.EXTPRO ---
HPI - Extremity Problem General: Chief complaint: Extremity Injury, Lower Stated complaint: LT Leg Lac/Chills Time Seen by Provider: 06/15/23 09:41 History of Present Illness: 88-year-old male who fell 3 weeks ago has a skin defect in the left posterior calf distally he was on a course of antibiotics would not finish them he states leg is more swollen not warm to the touch. No fever sweats or chills. Patient is on oral anticoagulation chronically he is continue to take it in the form of Eliquis. He is mildly tachypneic but states he is no more short of breath than he usually is his oxygen saturations are in the mid 90s on room air. He denies any chest pain. MD Complaint: extremity pain and extremity swelling Onset (ago): week(s) (3) Location: left and lower extremity Quality: aching Relieving factors: nothing Exacerbating factors: nothing Associated symptoms: Deny arthralgias, chest pain, fever(s), myalgias, rash, short of breath or other Review of Systems Const: Denies: fever(s) or chills ENMT: Denies: ear or mastoid pain Card: Reports: edema (Chronic); Denies: chest pain, palpitations or irregular heart rhythm Resp: Reports: dyspnea (Chronic at his baseline); Denies: productive cough or non-productive cough GI: Denies: abdominal pain, nausea, vomiting, hematemesis, coffee ground emesis, diarrhea, constipation, bloating, hematochezia or melena : Denies: flank pain, dysuria, urinary frequency or urinary urgency Skin/Breast: Denies: rash PFSH ED PFSH: Medical History (Updated 06/15/23 @ 12:35 by Archie Thomas MD) Atherosclerosis of leg with intermittent claudication Atrial fibrillation BPH (benign prostatic hyperplasia) CAD (coronary artery disease) CKD (chronic kidney disease) Diastolic CHF History of cardioversion 03/16/2019 History of sleep study (01/2021) severe obstructive sleep apnea, optimal pressure setting 6cm, with recommendation for auto-titrating CPAP 5-9 cm HTN (hypertension), benign Hyperlipidemia SHARON (obstructive sleep apnea) RLS (restless legs syndrome) Sleep apnea Unstable angina Varicose veins of bilateral lower extremities with other complications Surgical History S/P AAA (abdominal aortic aneurysm) repair with [place] endograft S/P CABG (coronary artery bypass graft) 1988 X1, 2006 X2 S/P carotid endarterectomy S/P coronary angiogram 04/29/2007 S/P femoral-femoral bypass surgery Family History Brother Cancer CAD (coronary artery disease) Diabetes Mother Heart disease CAD (coronary artery disease) Diabetes Sister CAD (coronary artery disease) Denies family history of Clotting disorder Dementia Chronic kidney disease (CKD) Suicide Anesthesia complication Bleeding disorder Lung disease Stroke Social History Smoking and tobacco status: current every day smoker Alcohol intake: never Substance/Drug Use: never Lives independently: Yes Household members: spouse Marital status: Physical Exam Const: GENERAL APPEARANCE: cooperative and comfortable ORIENTATION/CONSCIOUSNESS: Yes awake, Yes oriented to person, Yes oriented to place and Yes oriented to time HENMT: COMMON NORMALS: normocephalic, atraumatic and hearing grossly normal bilaterally HEAD & SCALP: normocephalic and atraumatic Resp: COMMON NORMALS: normal respiratory effort, No retractions, No use of accessory muscles and clear to auscultation bilaterally AUSCULTATION: clear to auscultation bilaterally Cardio: COMMON NORMALS: regular rate, regular rhythm and No murmurs present (Cardio) RATE: regular rate RHYTHM: regular rhythm GI: COMMON NORMALS: Soft to palpation and No hepatosplenomegaly present AUSCULTATION: Yes normoactive bowel sounds PALPATION: Yes Soft to palpation, No Tenderness to palpation present (GI), No Guarding due to palpation present (GI) and Yes No hepatosplenomegaly present Extremity: OTHER: Left lower leg moderately edematous slightly greater than the right. There is a defect in the distal part of the gastrocnemius posteriorly at the midline there is no active drainage she did has a dry eschar in place no erythema no fluctuance areas on palpation. Positive Homans test. Neuro: SENSORIUM/ORIENTATION: Yes oriented to person, Yes oriented to place and Yes oriented to time Skin: COMMON NORMALS: no rashes or lesions noted GENERAL SKIN EXAM: no rashes or lesions noted Course Vital Signs: Vital signs: Vital Signs Temperature 98.6 F 06/15/23 09:51 Pulse Rate 100 06/15/23 09:51 Respiratory Rate 18 06/15/23 09:51 Blood Pressure 111/65 06/15/23 09:51 Pulse Oximetry 94 06/15/23 09:51 Oxygen Delivery Me thod Room Air 06/15/23 09:51 MDM - Extremity (Nontraumatic) Medical Decision Making Cellulitis with significant leukocytosis lactate was normal. Discussed with Dr. Lucero will admit patient is on anticoagulants who is quite concerned about his initial presentation about him developing a DVT despite his anticoagulants venous duplex was negative did show a lot of soft tissue subcutaneous edema consistent with a cellulitis. Was started on vancomycin orders are written Medical Records I reviewed the patient's medical records. Lab Data I reviewed the patient's lab results. 06/15/23 10:33 06/15/23 10:33 Radiology Impressions Chest X-Ray 06/15/23 10:58 IMPRESSION: No significant airspace consolidation concerning for pneumonia. Laboratory Results WBC 24.3 10^3/uL (4.0-10.0) H 06/15/23 10:33 RBC 4.01 10^6/uL (4.1-5.3) L 06/15/23 10:33 Hgb 14.1 g/dL (11.7-16.6) 06/15/23 10:33 Hct 42.3 % (42.0-52.0) 06/15/23 10:33 MCV 105.5 fl (80-94) H 06/15/23 10:33 MCH 35.2 pg (28.0-34.0) H 06/15/23 10:33 MCHC 33.3 g/dL (30.0-36.0) 06/15/23 10:33 RDW 14.8 % (12.1-15.1) 06/15/23 10:33 Plt Count 174 10^3/cmm (130-400) 06/15/23 10:33 MPV 9.7 fL (7.4-10.4) 06/15/23 10:33 Neut % (Auto) 90.9 % 06/15/23 10:33 Lymph % (Auto) 1.2 % 06/15/23 10:33 [place] % (Auto) 6.6 % 06/15/23 10:33 Eos % (Auto) 0.0 % 06/15/23 10:33 Baso % (Auto) 0.2 % 06/15/23 10:33 Neut # (Auto) 22.10 10^3/uL (1.8-7.7) H 06/15/23 10:33 Lymph # (Auto) 0.3 10^3/uL (0.8-4.8) L 06/15/23 10:33 [place] # (Auto) 1.6 10^3/uL (0.2-0.9) H 06/15/23 10:33 Eos # (Auto) 0.0 10^3/uL (0.0-0.8) 06/15/23 10:33 Baso # (Auto) 0.1 10^3/uL (0.0-0.1) 06/15/23 10:33 Nucleated RBC % (auto) 0 % 06/15/23 10:33 Nucleated RBCs # 0.0 /100WBC 06/15/23 10:33 Sodium 136 mmol/L (136-145) 06/15/23 10:33 Potassium 4.8 mmol/L (3.5-5.1) 06/15/23 10:33 Chloride 104 mmol/L (98-107) 06/15/23 10:33 Carbon Dioxide 20 mmol/L (22-29) L 06/15/23 10:33 Anion Gap 16.8 (5-19) 06/15/23 10:33 BUN 33 mg/dL (8-23) H 06/15/23 10:33 Creatinine 1.5 mg/dL (0.7-1.2) H 06/15/23 10:33 GFR Calculation Not Reportable 06/15/23 10:33 Glucose 127 mg/dL (65-115) H 06/15/23 10:33 Calculated Osmolality 291 mOsm/kg (285-295) 06/15/23 10:33 Lactic Acid 1.9 mmol/L (0.5-2.2) 06/15/23 11:05 Calcium 8.6 mg/dL (8.5-10.5) 06/15/23 10:33 Total Bilirubin 1.0 mg/dL (0.15-1.2) 06/15/23 10:33 AST 31 U/L (0-40) 06/15/23 10:33 ALT 24 U/L (0-41) 06/15/23 10:33 Alkaline Phosphatase 73 U/L (40-130) 06/15/23 10:33 Total Protein 5.7 g/dL (6.6-8.7) L 06/15/23 10:33 Albumin 3.6 g/dL (3.5-5.2) 06/15/23 10:33 Globulin 2.1 g/dL (1.3-4.6) 06/15/23 10:33 Discharge Plan Discharge Patient Disposition: Admitted As Inpatient Clinical Impression: Cellulitis of lower extremity, Leukocytosis, CKD (chronic kidney disease), Atherosclerosis of leg with intermittent claudication, RLS (restless legs syndrome) Condition: Stable Prescriptions: No Action atenolol 25 mg tablet 25 mg PO DAILY atorvastatin 40 mg tablet 40 mg PO DAILY diltiazem HCl [Cartia XT] 180 mg capsule,extended release 24hr 180 mg PO DAILY Co Q-10 300 mg capsule 300 mg PO DAILY Eliquis 5 mg tablet 5 mg PO BID finasteride 5 mg tablet 5 mg PO DAILY losartan 25 mg tablet 25 mg PO DAILY ascorbic acid (vitamin C) 500 mg capsule 500 mg PO DAILY multivitamin Tablet 1 tab PO DAILY alprazolam 0.5 mg tablet 0.25 mg PO BEDTIME ropinirole 0.5 mg tablet 2 mg PO BEDTIME nitroglycerin [Nitrostat] 0.4 mg tablet, sublingual 0.4 mg SUBLINGUAL Q5M PRN (Reason: chest pain) Qty: 25 3RF Rx Instructions: do not exceed 3 doses per episode omega-3 fatty acids 500 mg capsule 500 mg PO DAILY clopidogrel 75 mg tablet 75 mg PO DAILY Qty: 90 3RF isosorbide mononitrate 30 mg tablet extended release 24 hr 30 mg PO BID Qty: 180 3RF ranolazine 500 mg tablet extended release 12 hr 500 mg PO BID Qty: 180 3RF furosemide 40 mg tablet 40 mg PO DAILY Qty: 90 3RF potassium chloride 20 mEq tablet extended release 20 meq PO DAILY Qty: 90 3RF Rx Instructions: Take 1 tablet daily with Furosemide. 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
[2023-06-15 10:44] LABS: Basophils # 0.1 10^3/uL (0.0-0.1); Basophils % 0.2 %; Hematocrit 42.3 % (42.0-52.0); Hemoglobin 14.1 g/dL (11.7-16.6); Lymphocytes # 0.3 10^3/uL (0.8-4.8); Lymphocytes % 1.2 %; Mean Corpuscular HGB Conc 33.3 g/dL (30.0-36.0); Mean Corpuscular Hemoglobin 35.2 pg (28.0-34.0); Mean Corpuscular Volume 105.5 fl (80-94); Mean Platelet Volume 9.7 fL (7.4-10.4); Monocytes # 1.6 10^3/uL (0.2-0.9); Monocytes % 6.6 %; Neutrophils % 90.9 %; Nucleated Red Blood Cells % 0 %; Platelet Count 174 10^3/cmm (130-400); Red Blood Count 4.01 10^6/uL (4.1-5.3); Red Cell Distribution Width 14.8 % (12.1-15.1); White Blood Count 24.3 10^3/uL (4.0-10.0)
--- NOTE | 2023-06-15 10:58 | XRR_ITS ---
PROCEDURE INFORMATION: Exam: XR Chest Exam date and time: 06/15/2023 11:18 AM Age: 88 years old Clinical indication: Cough and dyspnea; Prior surgery; Surgery date: 6+ months; Surgery type: Heart x 2; Additional info: Dyspnea/cough TECHNIQUE: Imaging protocol: Radiologic exam of the chest. Views: 1 view. COMPARISON: CT lung screening [id number] 11/19/2022 8:03 AM FINDINGS: Lungs: No significant airspace consolidation concerning for pneumonia. Pleural spaces: No pneumothorax. No pleural effusion. Heart/Mediastinum: Postsurgical changes in the mediastinum. Enlargement of the cardiac silhouette similar to prior exam. Bones/joints: Multiple fractured median sternotomy wires again noted. XR/XR chest 1V portable [id number] IMPRESSION: No significant airspace consolidation concerning for pneumonia.
[2023-06-15] MEDS: vancomycin 1,000 MG in sodium chloride 0.9% 250 ML 250 MG IV (11:14)
[2023-06-15 11:15] LABS: Alanine Aminotransferase 24 U/L (0-41); Albumin Level 3.6 g/dL (3.5-5.2); Alkaline Phosphatase 73 U/L (40-130); Blood Urea Nitrogen 33 mg/dL (8-23); Calcium 8.6 mg/dL (8.5-10.5); Carbon Dioxide 20 mmol/L (22-29); Chloride 104 mmol/L (98-107); Globulin 2.1 g/dL (1.3-4.6); Glucose 127 mg/dL (65-115); Osmolality Calculated 291 mOsm/kg (285-295); Sodium 136 mmol/L (136-145); Total Protein 5.7 g/dL (6.6-8.7)
[2023-06-15 11:17] LABS: Anion Gap 16.8 (5-19); Potassium 4.8 mmol/L (3.5-5.1)
[2023-06-15 11:18] LABS: Aspartate Amino Transferase 31 U/L (0-40)
[2023-06-15 11:32] LABS: Lactic Sepsis W/Reflex 1.9 mmol/L (0.5-2.2)
--- NOTE | 2023-06-15 12:24 | PM.HP ---
Providers/Chief Complaint Admitting Physician: Archie Thomas MD Primary Care Provider: Gwen Sanon NP Chief Complaint: LT Leg Lac/Chills History of Present Illness Steven Tee is a 88 year old male who sustained a wound to his left lower extremity, medial calf about 3 weeks ago or so. Started swelling, and draining some. He saw his primary care provider and was placed on Keflex 250 mg 3 times daily. He was given a week supply and just finished it. The leg is still swollen, still red. He had some chills last night. He thinks the drainage is less. No documented fevers. Reports he needs his Lasix this morning as he has not yet taken it, and this improves the shortness of breath. Medications/Allergies Home Medications Medication Instructions Recorded Confirmed Last Taken Type apixaban 5 mg tablet (Eliquis) 5 mg PO BID 04/16/20 06/15/23 06/15/23 History ascorbic acid (vitamin C) 500 mg 500 mg PO DAILY 04/16/20 06/15/23 06/14/23 History capsule atenolol 25 mg tablet 25 mg PO DAILY 04/16/20 06/15/23 06/15/23 History atorvastatin 40 mg tablet 40 mg PO DAILY 04/16/20 06/15/23 06/14/23 History coenzyme Q10 300 mg capsule (Co 300 mg PO DAILY 04/16/20 06/15/23 06/14/23 History Q-10) diltiazem HCl 180 mg 180 mg PO DAILY 04/16/20 06/15/23 06/14/23 History capsule,extended release 24 hr (Cartia XT) finasteride 5 mg tablet 5 mg PO DAILY 04/16/20 06/15/23 06/14/23 History losartan 25 mg tablet 25 mg PO DAILY 04/16/20 06/15/23 06/14/23 History multivitamin 1 tab PO DAILY 04/16/20 06/15/23 06/14/23 History alprazolam 0.5 mg tablet 0.25 mg PO BEDTIME 02/11/21 06/15/23 06/14/23 History nitroglycerin 0.4 mg sublingual 0.4 mg sublingual Q5M PRN chest 02/11/21 06/15/23 11/19/21 Rx tablet (Nitrostat) pain #25 tabs ropinirole 0.5 mg tablet 2 mg PO BEDTIME 06/18/21 06/15/23 06/14/23 History clopidogrel 75 mg tablet 75 mg PO DAILY #90 tabs 08/29/22 06/15/23 06/15/23 Rx omega-3 fatty acids 500 mg capsule 500 mg PO DAILY 09/04/22 06/15/23 06/14/23 History isosorbide mononitrate 30 mg 30 mg PO BID #180 tabs 09/05/22 06/15/23 06/15/23 Rx tablet,extended release 24 hr ranolazine 500 mg tablet,extended 500 mg PO BID #180 tabs 09/17/22 06/15/23 06/15/23 Rx release,12 hr furosemide 40 mg tablet 40 mg PO DAILY #90 tabs 11/13/22 06/15/23 06/14/23 Rx potassium chloride 20 mEq 20 meq PO DAILY #90 tabs 11/27/22 06/15/23 06/14/23 Rx tablet,extended release Allergies Allergy/AdvReac Type Severity Reaction Status Date / Time No Known Allergies Allergy Verified 03/05/23 14:47 PFSH Acute PFSH: Medical History (Updated 06/15/23 @ 12:35 by Archie Thomas MD) Atherosclerosis of leg with intermittent claudication Atrial fibrillation BPH (benign prostatic hyperplasia) CAD (coronary artery disease) CKD (chronic kidney disease) Diastolic CHF History of cardioversion 03/16/2019 History of sleep study (01/2021) severe obstructive sleep apnea, optimal pressure setting 6cm, with recommendation for auto-titrating CPAP 5-9 cm HTN (hypertension), benign Hyperlipidemia SHARON (obstructive sleep apnea) RLS (restless legs syndrome) Sleep apnea Unstable angina Varicose veins of bilateral lower extremities with other complications Surgical History S/P AAA (abdominal aortic aneurysm) repair with [place] endograft S/P CABG (coronary artery bypass graft) 1988 X1, 2006 X2 S/P carotid endarterectomy S/P coronary angiogram 04/29/2007 S/P femoral-femoral bypass surgery Family History Brother Cancer CAD (coronary artery disease) Diabetes Mother Heart disease CAD (coronary artery disease) Diabetes Sister CAD (coronary artery disease) Denies family history of Clotting disorder Dementia Chronic kidney disease (CKD) Suicide Anesthesia complication Bleeding disorder Lung disease Stroke Social History Smoking and tobacco status: current every day smoker Alcohol intake: never Substance/Drug Use: never Lives independently: Yes Household members: spouse Marital status: Vitals/I&O/Wt Last Vital Signs Temp 98.6 F 06/15/23 09:51 Pulse 100 06/15/23 09:51 Resp 18 06/15/23 09:51 BP 111/65 06/15/23 09:51 Pulse Ox 94 06/15/23 09:51 O2 Del Method Room Air 06/15/23 09:51 Weight last 48 hrs Weight 88.451 kg Physical Exam Narrative: General exam is a white male, slight tachypnea, no distress HEENT: Pupils equally round. Arcus senilis is present. Oropharynx clear. Neck is supple no lymphadenopathy thyromegaly Cardiovascular regular rate and rhythm, no murmur Lungs diminished breath sounds bilaterally. No wheezes Abdomen is soft with positive bowel sounds. No obvious organomegaly exam is deferred Extremities no cyanosis or clubbing. Cap refill about 2 seconds on the right, slightly more on the left. Left is edematous, erythematous, with a slight draining depression, medial side by the calf. Skin see findings above Neuro no obvious focal deficits Data 06/15/23 10:33 06/15/23 10:33 Other Labs: LFTs are normal Calcium 8.6, albumin 3.6 Lactic acid 1.9 Chest x-ray which I reviewed demonstrates postoperative heart, no infiltrate, cardiomegaly Venous duplex demonstrates no DVT. Popliteal cyst is noted As were drawn Previous echocardiogram in February demonstrated an EF of 50 to 55%, mild aortic stenosis Previous angiogram in November 2021 demonstrated patent grafts, medical treatment was recommended Urinalysis is ordered and pending Micro: Microbiology 06/15/23 11:09 Blood Culture - Preliminary Blood SPECIMEN COLLECTED 06/15/23 11:05 Blood Culture - Preliminary Blood SPECIMEN COLLECTED A&P Assessment and plan (1) Cellulitis of lower extremity: Patient presents with cellulitis of his left lower extremity following an injury 3 weeks ago. He has failed outpatient antibiotics. He has had chills, and has an elevated white blood cell count. Initiate vancomycin and Zosyn Blood cultures have been drawn Monitor CBC daily At significant risk secondary to severe peripheral vascular disease Venous duplex was done which demonstrated no DVT (2) Leukocytosis: Secondary to above CBC tomorrow (3) Atherosclerosis of leg with intermittent claudication: Patient has known history of peripheral vascular disease with moderate to severe arterial flow. 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 Capillary refill is 2 seconds on the right, slightly more than 2 seconds on the left. Continue to follow closely. (4) CKD (chronic kidney disease): Patient has history of chronic kidney disease BMP daily Avoid anti-inflammatories Renally dose medication Qualifiers: Chronic kidney disease stage: stage 3 (moderate) Chronic kidney disease stage 3 subtype: stage 3a (GFR 45-59) Qualified Code(s): N18.31 - Chronic kidney disease, stage 3a (5) Diastolic CHF: Continue patient's Lasix. He has not had this today. 40 mg IV x1 today. Qualifiers: Heart failure chronicity: chronic Qualified Code(s): I50.32 - Chronic diastolic (congestive) heart failure (6) RLS (restless legs syndrome): Patient with history of restless leg syndrome, which she reports is significantly worse currently. To wear his CPAP at night Patient wants to try new therapy as it is unbearable at times. Initiate Neurontin 100 mg twice daily. Taper dose up as tolerated. Hold Mirapex. Start Sinemet 25/100, 1/2 tablet 3 times daily as needed restless legs. If tolerated well could increase to a whole tablet. Plan Coronary artery disease. Continue home medications Atrial fibrillation, continue home medications and anticoagulation Multiple other medical problems as outlined in past medical history Full code Eliquis will suffice for DVT prophylaxis Attestations Medical Necessity Statement*: Will require greater than 2 midnight stay for evaluation and treatment of cellulitis, failing outpatient therapy Diagnoses Cellulitis of lower extremity L03.119 Leukocytosis D72.829 Atherosclerosis of leg with intermittent claudication I70.219 CKD (chronic kidney disease) N18.31 Chronic kidney disease stage: stage 3 (moderate) Chronic kidney disease stage 3 subtype: stage 3a (GFR 45-59) Diastolic CHF I50.32 Heart failure chronicity: chronic RLS (restless legs syndrome) G25.81 Time Spent (min) 54
[2023-06-15] MEDS: ropinirole 1 mg Tablet 2 MG PO (12:54)
[2023-06-15] MEDS: FUROsemide 10 mg/mL SDV 4mL 40 MG IVP (12:54)
--- NOTE | 2023-06-15 13:31 | PC.NURSE ---
report called to MARYLOU Alex
--- NOTE | 2023-06-15 14:17 | PC.NURSE ---
Patient arrived to Med/Surg 255-2.
[2023-06-15] MEDS: piperacillin-tazobactam 3.375 GM in sodium chloride 0.9% (plus) 50 ML IV ×2 (15:33→23:49)
[2023-06-15] MEDS: nicotine 21 mg Patch 1 PATCH TRANSDERMA (15:33)
[2023-06-15] MEDS: ranolazine (12HR) 500 mg Tablet PO (17:28)
[2023-06-15] MEDS: isosorbide mononitrate ER 30 mg Tablet PO (17:28)
[2023-06-15] MEDS: gabapentin 100 mg Capsule PO (17:28)
[2023-06-15] MEDS: apixaban 5 mg Tablet PO (17:28)
[2023-06-16] VITALS (12 sets, daily range): BP systolic 104–120; BP diastolic 62–80; PULSE 59–86; RESP 16–18; TEMP 36.4–36.7; O2SAT 91–99
[2023-06-16 00:58] LABS: Add Urine Microscopic? NO; Charge for UA Resulting for Rev
[2023-06-16 01:00] LABS: Bilirubin Urine Neg (Negative); Blood Urine Neg (Negative); Glucose Urine UA Norm (Normal); Ketones Urine Negative (Negative); Leukocyte Esterase Urine Negative (Negative); Nitrate Urine Negative (Negative); Protein Urine Neg (Negative); Urine Appearance Clear (CLEAR); Urine Color Yellow (Yellow); Urobilinogen Urine Norm (Negative); pH Urine 5 (5-7)
[2023-06-16 05:55] LABS: Basophils % 0.2 %; Eosinophils % 0.1 %; Hematocrit 38.3 % (42.0-52.0); Hemoglobin 12.5 g/dL (11.7-16.6); Lymphocytes # 0.6 10^3/uL (0.8-4.8); Lymphocytes % 3.9 %; Mean Corpuscular HGB Conc 32.6 g/dL (30.0-36.0); Mean Corpuscular Hemoglobin 34.8 pg (28.0-34.0); Mean Corpuscular Volume 106.7 fl (80-94); Mean Platelet Volume 9.8 fL (7.4-10.4); Monocytes % 7.2 %; Neutrophils # 12.45 10^3/uL (1.8-7.7); Neutrophils % 87.9 %; Nucleated Red Blood Cells % 0 %; Platelet Count 132 10^3/cmm (130-400); Red Blood Count 3.59 10^6/uL (4.1-5.3); White Blood Count 14.2 10^3/uL (4.0-10.0)
[2023-06-16 06:11] LABS: Alanine Aminotransferase 19 U/L (0-41); Albumin Level 3.2 g/dL (3.5-5.2); Alkaline Phosphatase 54 U/L (40-130); Aspartate Amino Transferase 20 U/L (0-40); Blood Urea Nitrogen 33 mg/dL (8-23); Calcium 8.1 mg/dL (8.5-10.5); Carbon Dioxide 25 mmol/L (22-29); Chloride 106 mmol/L (98-107); Globulin 1.7 g/dL (1.3-4.6); Glucose 95 mg/dL (65-115); Osmolality Calculated 293 mOsm/kg (285-295); Sodium 138 mmol/L (136-145); Total Bilirubin 0.7 mg/dL (0.15-1.2); Total Protein 4.9 g/dL (6.6-8.7)
[2023-06-16 06:12] LABS: Anion Gap 11.7 (5-19); Potassium 4.7 mmol/L (3.5-5.1)
[2023-06-16] MEDS: piperacillin-tazobactam 3.375 GM in sodium chloride 0.9% (plus) 50 ML IV ×3 (07:05→23:08)
--- NOTE | 2023-06-16 07:47 | PM.PN ---
Subjective Subjective: Patient was able to sleep at night. States leg feels a little bit better. No issues with the Neurontin. No chills last night. Medications: Reviewed: Yes Vitals/I&O/Wt Last Vital Signs Temp 97.6 F 06/16/23 04:00 Pulse 74 06/16/23 07:19 Resp 18 06/16/23 04:00 BP 110/64 06/16/23 04:00 Pulse Ox 98 06/16/23 07:19 O2 Del Method Room Air 06/16/23 07:19 O2 Flow Rate 2 06/15/23 20:05 FiO2 28 06/15/23 20:05 06/15/23 06/16/23 06/16/23 22:59 06:59 14:59 Intake Total 410 / 660 290 / 950 Output Total 400 / 400 Balance 410 / 660 -110 / 550 Weight last 48 hrs Weight 88.451 kg Physical Exam Narrative: General exam is Neck is supple no lymphadenopathy thyromegaly Cardiovascular regular rate and rhythm, no murmur Lungs diminished breath sounds bilaterally. No wheezes Abdomen is soft with positive bowel sounds. No obvious organomegaly Extremities no cyanosis or clubbing. Cap refill about 2 seconds on the right, slightly more on the left. Left is edematous, erythematous, with a slight draining depression, medial side by the calf. Erythema is darker today. Skin see findings above Data 06/16/23 05:45 06/16/23 05:45 Micro: Microbiology 06/15/23 11:09 Blood Culture - Preliminary Blood SPECIMEN COLLECTED 06/15/23 11:05 Blood Culture - Preliminary Blood SPECIMEN COLLECTED A&P Assessment and plan (1) Cellulitis of lower extremity: Patient presents with cellulitis of his left lower extremity following an injury 3 weeks ago. He has failed outpatient antibiotics. He has had chills, and has an elevated white blood cell count. Continue vancomycin and Zosyn Blood cultures have been drawn and is pending White blood cell count is improved At significant risk secondary to severe peripheral vascular disease Venous duplex was done which demonstrated no DVT Likely discharge tomorrow if continues to improve (2) Leukocytosis: Improved CBC tomorrow (3) Atherosclerosis of leg with intermittent claudication: Patient has known history of peripheral vascular disease with moderate to severe arterial flow. 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 Capillary refill today is improved less than 2 seconds (4) CKD (chronic kidney disease): Patient has history of chronic kidney disease BMP daily Avoid anti-inflammatories Renally dose medication Creatinine slightly higher. Encourage fluids today. Qualifiers: Chronic kidney disease stage: stage 3 (moderate) Chronic kidney disease stage 3 subtype: stage 3a (GFR 45-59) Qualified Code(s): N18.31 - Chronic kidney disease, stage 3a (5) Diastolic CHF: Continue current medications Qualifiers: Heart failure chronicity: chronic Qualified Code(s): I50.32 - Chronic diastolic (congestive) heart failure (6) RLS (restless legs syndrome): Patient with history of restless leg syndrome, which she reports is significantly worse currently. To wear his CPAP at night Patient wants to try new therapy as it is unbearable at times. You Neurontin 100 mg twice daily. Taper dose up as tolerated. Hold Mirapex. Continue Sinemet 25/100, 1/2 tablet 3 times daily as needed restless legs. If tolerated well could increase to a whole tablet. Plan Coronary artery disease. Continue home medications Atrial fibrillation, continue home medications and anticoagulation Multiple other medical problems as outlined in past medical history Full code Eliquis will suffice for DVT prophylaxis Attestations Medical Necessity Statement*: Needs continued hospital stay for IV antibiotics related to cellulitis failing outpatient treatment Diagnoses Cellulitis of lower extremity L03.119 Leukocytosis D72.829 Atherosclerosis of leg with intermittent claudication I70.219 CKD (chronic kidney disease) N18.31 Chronic kidney disease stage: stage 3 (moderate) Chronic kidney disease stage 3 subtype: stage 3a (GFR 45-59) Diastolic CHF I50.32 Heart failure chronicity: chronic RLS (restless legs syndrome) G25.81 Time Spent (min) 21
[2023-06-16] MEDS: isosorbide mononitrate ER 30 mg Tablet PO ×2 (08:31→17:48)
--- NOTE | 2023-06-16 08:31 | XRR_ITS ---
PROCEDURE INFORMATION: Exam: XR Left Tibia and Fibula Exam date and time: 06/16/2023 8:51 AM Age: 88 years old Clinical indication: Edema; Location not specified; Prior surgery; Surgery date: 6+ months; Surgery type: FX 30 years ago; Patient HX: Lt lower leg cellulitis; Additional info: Edema , cellulitis TECHNIQUE: Imaging protocol: Radiologic exam of the left tibia and fibula. Views: 2 views. COMPARISON: No relevant prior studies available. FINDINGS: Bones/joints: No acute fracture or dislocation. Ossification at the lateral ankle is likely sequela of prior trauma. Healed fracture remodeling of the distal tibia. Mineralization is normal. Mild degenerative changes of the knee. Medial and lateral knee compartment chondrocalcinosis. Surgical clips at the popliteal fossa. Soft tissues: Edematous soft tissue swelling of the calf. XR/XR tibia fibula LT 2V [id number] IMPRESSION: 1. Edematous left calf soft tissue swelling without evidence of acute osseous abnormality. 2. Mild degenerative changes of the knee. 3. Chondrocalcinosis.
[2023-06-16] MEDS: gabapentin 100 mg Capsule PO ×2 (08:32→17:48)
[2023-06-16] MEDS: FUROsemide 40 mg Tablet PO (08:32)
[2023-06-16] MEDS: dilTIAZem ER (24HR) 180 mg Capsule PO (08:33)
[2023-06-16] MEDS: clopidogrel 75 mg Tablet PO (08:34)
[2023-06-16] MEDS: finasteride 5 mg Tablet PO (08:34)
[2023-06-16] MEDS: apixaban 5 mg Tablet PO ×2 (08:35→17:48)
[2023-06-16] MEDS: atenolol 50 mg Tablet 25 MG PO (08:35)
[2023-06-16] MEDS: atorvastatin 40 mg Tablet PO (08:35)
[2023-06-16] MEDS: ranolazine (12HR) 500 mg Tablet PO ×2 (08:35→17:48)
[2023-06-16] MEDS: losartan 50 mg Tablet 25 MG PO (08:37)
[2023-06-16] MEDS: budesonide 0.5 mg/2 mL Neb INHALATION ×2 (08:54→20:32)
[2023-06-16] MEDS: nicotine 21 mg Patch 1 PATCH TRANSDERMA (08:54)
--- NOTE | 2023-06-16 09:36 | PC.CHAP ---
Pastoral Care Encounter/Spiritual Assessment Type of Contact [] Declined case worker visit [] Patient/Family/Request visit [] Outpatient visit [] Follow-up visit [] Physician referral [] Code/Alert [x] Routine visit [] Staff referral [] Actively dying [] Patient sleeping [x] Family support [] [] Out of room [] Palliative care [] [] Receiving care in room [] Pre-surgical visit [] Trauma [] Long length of stay [] ICU visit [] Other: Relational/Emotional Strength [x] Patient feels connected with others/family/visitors/staff [] Distress [] Loneliness/isolation [] Abandonment Spirituality of Patient [x] Person of [place] [x] Attends Mosque of their [place] [x] Believes in Prayer [x] Reads Bible or Restoration materials [] There are Spiritual issues to be addressed [employer] Teacher Interventions [x] Prayer [x] Active listening [] Non-anxious presence [x] Spiritual/emotional support [] Crisis/trauma care [] Spiritual counseling [] Bereavement support [] Provided bereavement packet [] Provided Bible/devotional materials [] Provided toy/stuffed animal, coloring book to patient or family member [] Provided Communion [] Anointing/[place] [] Salvation [x] Completed spiritual assessment [] Other: Impact on Illness or Injury [] Angry [] Fearful [] Anxious [] Often cries [] Exhaustion [] Unable to work [] Unable to attend mosque [] Unable to walk/stand [] Unable to read [] Unable to drive [] Unable to eat/drink [] Unable to sleep [] Unable to be with family [] Patient intubated [] Other: Summary Time spent with patient 5 min
[2023-06-16] MEDS: vancomycin 1,250 MG/250 ML PIGGYBACK 250 MG IV (11:41)
[2023-06-16] MEDS: ALPRAZolam 0.5 mg Tablet 0.25 MG PO (21:12)
[2023-06-17] VITALS (10 sets, daily range): BP systolic 111–127; BP diastolic 51–80; PULSE 63–89; RESP 15–18; TEMP 36.1–36.7; O2SAT 93–97
[2023-06-17] MEDS: carbidopa-levodopa 25-100mg Tablet 0.5 EACH PO ×3 (03:10→21:36)
[2023-06-17 05:29] LABS: Basophils % 0.4 %; Eosinophils # 0.2 10^3/uL (0.0-0.8); Eosinophils % 2.1 %; Hematocrit 38.9 % (42.0-52.0); Hemoglobin 12.5 g/dL (11.7-16.6); Lymphocytes # 0.7 10^3/uL (0.8-4.8); Lymphocytes % 6.2 %; Mean Corpuscular HGB Conc 32.1 g/dL (30.0-36.0); Mean Corpuscular Hemoglobin 34.6 pg (28.0-34.0); Mean Corpuscular Volume 107.8 fl (80-94); Mean Platelet Volume 10.5 fL (7.4-10.4); Monocytes # 1.1 10^3/uL (0.2-0.9); Monocytes % 9.8 %; Neutrophils # 8.64 10^3/uL (1.8-7.7); Neutrophils % 80.5 %; Nucleated Red Blood Cells % 0 %; Platelet Count 148 10^3/cmm (130-400); Red Blood Count 3.61 10^6/uL (4.1-5.3); White Blood Count 10.7 10^3/uL (4.0-10.0)
[2023-06-17 05:52] LABS: Blood Urea Nitrogen 39 mg/dL (8-23); Calcium 8.4 mg/dL (8.5-10.5); Carbon Dioxide 23 mmol/L (22-29); Chloride 107 mmol/L (98-107); Glucose 95 mg/dL (65-115); Osmolality Calculated 293 mOsm/kg (285-295); Sodium 137 mmol/L (136-145)
[2023-06-17] MEDS: piperacillin-tazobactam 3.375 GM in sodium chloride 0.9% (plus) 50 ML IV ×3 (07:03→22:30)
[2023-06-17] MEDS: ipratropium-albuterol 3 mL Neb INHALATION (08:16)
[2023-06-17] MEDS: budesonide 0.5 mg/2 mL Neb INHALATION ×2 (08:16→20:18)
[2023-06-17] MEDS: clopidogrel 75 mg Tablet PO (09:24)
[2023-06-17] MEDS: isosorbide mononitrate ER 30 mg Tablet PO ×2 (09:26→18:15)
[2023-06-17] MEDS: dilTIAZem ER (24HR) 180 mg Capsule PO (09:26)
[2023-06-17] MEDS: ranolazine (12HR) 500 mg Tablet PO ×2 (09:27→18:15)
[2023-06-17] MEDS: atorvastatin 40 mg Tablet PO (09:27)
[2023-06-17] MEDS: atenolol 50 mg Tablet 25 MG PO (09:28)
[2023-06-17] MEDS: losartan 50 mg Tablet 25 MG PO (09:30)
[2023-06-17] MEDS: apixaban 5 mg Tablet PO ×2 (09:30→18:15)
[2023-06-17] MEDS: gabapentin 100 mg Capsule PO ×2 (09:30→18:15)
[2023-06-17] MEDS: finasteride 5 mg Tablet PO (09:33)
[2023-06-17] MEDS: nicotine 21 mg Patch 1 PATCH TRANSDERMA (09:33)
--- NOTE | 2023-06-17 10:34 | P.PN_ITS ---
Subjective Subjective: Steven reports he is feeling fine. No chills overnight. Woke up once in the night to get some medicine for restless leg but otherwise slept well. Leg is better. Medications: Reviewed: Yes Vitals/I&O/Wt Last Vital Signs Temp 96.9 F L 06/17/23 07:55 Pulse 81 06/17/23 08:16 Resp 18 06/17/23 08:16 BP 120/80 06/17/23 09:30 Pulse Ox 93 06/17/23 08:16 O2 Del Method Room Air 06/17/23 08:16 O2 Flow Rate 2 06/16/23 21:20 FiO2 28 06/15/23 20:05 06/16/23 06/17/23 06/17/23 22:59 06:59 14:59 Intake Total 650 / 1430 50 / 1480 560 / 560 Output Total 350 / 350 500 / 850 Balance 300 / 1080 -450 / 630 560 / 560 Physical Exam Narrative: General exam no distress Cardiovascular regular rate and rhythm, no murmur Lungs diminished breath sounds bilaterally. No wheezes Abdomen is soft with positive bowel sounds. No obvious organomegaly Extremities no cyanosis or clubbing. Left leg less erythematous. Cap refill less than 2 seconds. Very scant drainage from medial wound on left lower extre mity Skin see findings above Data 06/17/23 05:00 06/17/23 05:00 Micro: Microbiology 06/16/23 09:48 Blood Culture - Preliminary Blood NEGATIVE TO DATE 06/16/23 09:59 Blood Culture - Preliminary Blood NEGATIVE TO DATE 06/15/23 11:09 Blood Culture - Preliminary Blood 06/15/23 11:05 Blood Culture - Preliminary Blood A&P Assessment and plan (1) Cellulitis of lower extremity: Patient presents with cellulitis of his left lower extremity following an injury 3 weeks ago. He has failed outpatient antibiotics. He has had chills, and has an elevated white blood cell count. Continue vancomycin and Zosyn Blood cultures have been drawn and yesterday turned positive for gram-negative organisms, rods, and 2 out of 4 bottles. Identification and sensitivity expected tomorrow. Repeat cultures are negative today. White blood cell count is improved and near normal At significant risk secondary to severe peripheral vascular disease Venous duplex was done which demonstrated no DVT Awaiting ID and sensitivity of organism secondary to bacteremia prior to discharge Needs continued close follow-up of creatinine and vancomycin levels in the hospital to prevent renal toxicity in this patient with worsening of creatinine (2) Leukocytosis: Improved Repeat CBC tomorrow (3) Atherosclerosis of leg with intermittent claudication: Patient has known history of peripheral vascular disease with moderate to severe arterial flow. 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 Capillary refill today is improved less than 2 seconds (4) CKD (chronic kidney disease): Patient has history of chronic kidney disease BMP daily Avoid anti-inflammatories Creatinine slightly worse. Hold Lasix dose today. Repeat tomorrow Qualifiers: Chronic kidney disease stage: stage 3 (moderate) Chronic kidney disease stage 3 subtype: stage 3a (GFR 45-59) Qualified Code(s): N18.31 - Chronic kidney disease, stage 3a (5) Diastolic CHF: Continue current medications Qualifiers: Heart failure chronicity: chronic Qualified Code(s): I50.32 - Chronic diastolic (congestive) heart failure (6) RLS (restless legs syndrome): Patient with history of restless leg syndrome, which she reports is significantly worse currently. To wear his CPAP at night Patient wants to try new therapy as it is unbearable at times. You Neurontin 100 mg twice daily. Taper dose up as tolerated. Hold Mirapex. Continue Sine met 25/100, 1/2 tablet 3 times daily as needed restless legs. If tolerated well could increase to a whole tablet. He reports this is markedly better with medication changes Plan Coronary artery disease. Continue home medications Atrial fibrillation, continue home medications and anticoagulation Multiple other medical problems as outlined in past medical history Full code Eliquis will suffice for DVT prophylaxis Attestations Medical Necessity Statement*: Needs continued hospital stay for IV antibiotics pending identification and sensitivity of bacteria. Diagnoses Cellulitis of lower extremity L03.119 Leukocytosis D72.829 Atherosclerosis of leg with intermittent claudication I70.219 CKD (chronic kidney disease) N18.31 Chronic kidney disease stage: stage 3 (moderate) Chronic kidney disease stage 3 subtype: stage 3a (GFR 45-59) Diastolic CHF I50.32 Heart failure chronicity: chronic RLS (restless legs syndrome) G25.81 Time Spent (min) 26
[2023-06-17] MEDS: vancomycin 1,250 MG/250 ML PIGGYBACK 250 MG IV (11:26)
[2023-06-17] MEDS: ALPRAZolam 0.5 mg Tablet 0.25 MG PO (20:07)
[2023-06-18] VITALS (7 sets, daily range): BP systolic 118–132; BP diastolic 68–85; PULSE 59–82; RESP 16–18; TEMP 36.4–36.6; O2SAT 91–100
[2023-06-18 05:15] LABS: Basophils # 0.1 10^3/uL (0.0-0.1); Basophils % 0.6 %; Eosinophils # 0.2 10^3/uL (0.0-0.8); Eosinophils % 2.5 %; Hemoglobin 13.3 g/dL (11.7-16.6); Lymphocytes # 0.8 10^3/uL (0.8-4.8); Lymphocytes % 8.9 %; Mean Corpuscular HGB Conc 32.4 g/dL (30.0-36.0); Mean Corpuscular Hemoglobin 35.3 pg (28.0-34.0); Mean Corpuscular Volume 108.8 fl (80-94); Monocytes % 10.6 %; Neutrophils # 6.86 10^3/uL (1.8-7.7); Neutrophils % 75.6 %; Nucleated Red Blood Cells % 0 %; Platelet Count 149 10^3/cmm (130-400); Red Blood Count 3.77 10^6/uL (4.1-5.3); White Blood Count 9.1 10^3/uL (4.0-10.0)
[2023-06-18 05:33] LABS: Anion Gap 13.8 (5-19); Blood Urea Nitrogen 41 mg/dL (8-23); Calcium 8.6 mg/dL (8.5-10.5); Carbon Dioxide 24 mmol/L (22-29); Chloride 108 mmol/L (98-107); Glucose 95 mg/dL (65-115); Osmolality Calculated 302 mOsm/kg (285-295); Potassium 4.8 mmol/L (3.5-5.1); Sodium 141 mmol/L (136-145)
[2023-06-18] MEDS: piperacillin-tazobactam 3.375 GM in sodium chloride 0.9% (plus) 50 ML IV (06:14)
[2023-06-18] MEDS: budesonide 0.5 mg/2 mL Neb INHALATION (07:45)
[2023-06-18] MEDS: ipratropium-albuterol 3 mL Neb INHALATION (07:45)
[2023-06-18] MEDS: dilTIAZem ER (24HR) 180 mg Capsule PO (08:09)
[2023-06-18] MEDS: gabapentin 100 mg Capsule PO (08:09)
[2023-06-18] MEDS: losartan 50 mg Tablet 25 MG PO (08:09)
[2023-06-18] MEDS: atenolol 50 mg Tablet 25 MG PO (08:09)
[2023-06-18] MEDS: clopidogrel 75 mg Tablet PO (08:10)
[2023-06-18] MEDS: isosorbide mononitrate ER 30 mg Tablet PO (08:10)
[2023-06-18] MEDS: atorvastatin 40 mg Tablet PO (08:10)
[2023-06-18] MEDS: apixaban 5 mg Tablet PO (08:10)
[2023-06-18] MEDS: FUROsemide 40 mg Tablet PO (08:11)
[2023-06-18] MEDS: finasteride 5 mg Tablet PO (08:11)
[2023-06-18] MEDS: ranolazine (12HR) 500 mg Tablet PO (08:11)
[2023-06-18] MEDS: nicotine 21 mg Patch 1 PATCH TRANSDERMA (08:11)
[2023-06-18 10:55] LABS: Vancomycin Trough 13.2 ug/mL (10-15)
--- NOTE | 2023-06-18 11:26 | PM.DCS ---
Discharge Providers Date of Admission: 06/15/23 12:37 Date of Discharge: June 18, 2023 Attending Provider at Admission: Archie Thomas MD Attending Provider at Discharge: Archie Thomas MD Primary Care Provider: Gwen Sanon NP Diagnoses at Discharge Discharge Diagnosis (1) Cellulitis of lower extremity: Status: Acute (2) Leukocytosis: Status: Acute (3) Atherosclerosis of leg with intermittent claudication: Status: Acute (4) CKD (chronic kidney disease): Status: Acute Qualifiers: Chronic kidney disease stage: stage 3 (moderate) Chronic kidney disease stage 3 subtype: stage 3a (GFR 45-59) Qualified Code(s): N18.31 - Chronic kidney disease, stage 3a (5) Diastolic CHF: Status: Acute Qualifiers: Heart failure chronicity: chronic Qualified Code(s): I50.32 - Chronic diastolic (congestive) heart failure (6) RLS (restless legs syndrome): Status: Acute Reason for Visit Reason for Visit: LT Leg Lac/Chills Hospital Course Hospital Course Steven is an 88-year-old white male who presented to the hospital with cellulitis of his left lower extremity and chills. White blood cell count was elevated. He was placed on Zosyn and vancomycin, and closely monitored. Blood cultures eventually came back gram-negative organisms. Repeat cultures were drawn which remained negative during his hospital stay. This positive culture ended up being Pseudomonas, pansensitive. By the end of hospital stay, he was feeling great. His white blood cell count had returned to normal. His leg was much improved. He did have some skin breakdown in his left lower extremity, medial, which I told him could be evaluated by wound care if this does not start to heal soon. There was no evidence of abscess on ultrasound, or DVT on ultrasound. X-ray of his left lower extremity did not demonstrate osteomyelitis. He was informed if he had recurrent fevers, worsening pain, diarrhea to contact his primary care provider or return. Him and his were able to ask questions, and agreed with the plan. The dose of Cipro will be 500 mg twice daily, adjusted for his renal function from the normal 750 every 12 hours for Pseudomonas infection. Physical Exam Narrative: General exam no distress Neck is supple Cardiovascular regular rate and rhythm Lungs clear Abdomen is soft with positive bowel sounds Extremities no cyanosis clubbing. Left still with some edema. Erythema that was present is now ruborous. No significant drainage from left lower extremity skin breakdown medially, which is approximately 10 mm and circular Discharge Data Studies Completed and Pending Completed Studies During Hospitalization Category Date Time Status XR chest 1V portable [id number] Stat Exams 06/15/23 10:58 Completed XR tibia fibula LT 2V [id number] Routine Exams 06/16/23 08:31 Completed US venous duplex lower extremity LT [CV venous duplex Ultrasound 06/15/23 10:26 [place] [id number]] Stat Pending at discharge Category Date Time Status Blood Culture Stat Lab 06/15/23 11:05 Results Blood Culture Stat Lab 06/16/23 09:48 Results Radiology Impressions Chest X-Ray 06/15/23 10:58 IMPRESSION: No significant airspace consolidation concerning for pneumonia. Tibia/Fibula X-Ray 06/16/23 08:31 IMPRESSION: 1. Edematous left calf soft tissue swelling without evidence of acute osseous abnormality. 2. Mild degenerative changes of the knee. 3. Chondrocalcinosis. Laboratory Results WBC 9.1 10^3/uL (4.0-10.0) 06/18/23 04:43 RBC 3.77 10^6/uL (4.1-5.3) L 06/18/23 04:43 Hgb 13.3 g/dL (11.7-16.6) 06/18/23 04:43 Hct 41.0 % (42.0-52.0) L 06/18/23 04:43 MCV 108.8 fl (80-94) H 06/18/23 04:43 MCH 35.3 pg (28.0-34.0) H 06/18/23 04:43 MCHC 32.4 g/dL (30.0-36.0) 06/18/23 04:43 RDW 15.0 % (12.1-15.1) 06/18/23 04:43 Plt Count 149 10^3/cmm (130-400) 06/18/23 04:43 MPV 10.0 fL (7.4-10.4) 06/18/23 04:43 Neut % (Auto) 75.6 % 06/18/23 04:43 Lymph % (Auto) 8.9 % 06/18/23 04:43 [place] % (Auto) 10.6 % 06/18/23 04:43 Eos % (Auto) 2.5 % 06/18/23 04:43 Baso % (Auto) 0.6 % 06/18/23 04:43 Neut # (Auto) 6.86 10^3/uL (1.8-7.7) 06/18/23 04:43 Lymph # (Auto) 0.8 10^3/uL (0.8-4.8) 06/18/23 04:43 [place]ne # (Auto) 1.0 10^3/uL (0.2-0.9) H 06/18/23 04:43 Eos # (Auto) 0.2 10^3/uL (0.0-0.8) 06/18/23 04:43 Baso # (Auto) 0.1 10^3/uL (0.0-0.1) 06/18/23 04:43 Nucleated RBC % (auto) 0 % 06/18/23 04:43 Nucleated RBCs # 0.0 /100WBC 06/18/23 04:43 Sodium 141 mmol/L (136-145) 06/18/23 04:43 Potassium 4.8 mmol/L (3.5-5.1) 06/18/23 04:43 Chloride 108 mmol/L (98-107) H 06/18/23 04:43 Carbon Dioxide 24 mmol/L (22-29) 06/18/23 04:43 Anion Gap 13.8 (5-19) 06/18/23 04:43 BUN 41 mg/dL (8-23) H 06/18/23 04:43 Creatinine 1.6 mg/dL (0.7-1.2) H 06/18/23 04:43 GFR Calculation Not Reportable 06/18/23 04:43 Glucose 95 mg/dL (65-115) 06/18/23 04:43 Calculated Osmolality 302 mOsm/kg (285-295) H 06/18/23 04:43 Lactic Acid 1.9 mmol/L (0.5-2.2) 06/15/23 11:05 Calcium 8.6 mg/dL (8.5-10.5) 06/18/23 04:43 Total Bilirubin 0.7 mg/dL (0.15-1.2) 06/16/23 05:45 AST 20 U/L (0-40) 06/16/23 05:45 ALT 19 U/L (0-41) 06/16/23 05:45 Alkaline Phosphatase 54 U/L (40-130) 06/16/23 05:45 Total Protein 4.9 g/dL (6.6-8.7) L 06/16/23 05:45 Albumin 3.2 g/dL (3.5-5.2) L 06/16/23 05:45 Globulin 1.7 g/dL (1.3-4.6) 06/16/23 05:45 Urine Color Yellow (Yellow) 06/16/23 00:45 Urine Appearance Clear (CLEAR) 06/16/23 00:45 Urine pH 5 (5-7) 06/16/23 00:45 Ur Specific [place] 1.020 (1.005-1.030) 06/16/23 00:45 Urine Protein Neg (Negative) 06/16/23 00:45 Urine Glucose (UA) Norm (Normal) 06/16/23 00:45 Urine Ketones Negative (Negative) 06/16/23 00:45 Urine Blood Neg (Negative) 06/16/23 00:45 Urine Nitrate Negative (Negative) 06/16/23 00:45 Urine Bilirubin Neg (Negative) 06/16/23 00:45 Urine Urobilinogen Norm mg/dL (Negative) 06/16/23 00:45 Ur Leukocyte Esterase Negative (Negative) 06/16/23 00:45 Vancomycin Trough 13.2 ug/mL (10-15) 06/18/23 10:22 Vitals Last Vital Signs Temp 97.5 F L 06/18/23 10:56 Pulse 82 06/18/23 10:56 Resp 18 06/18/23 10:56 BP 127/85 06/18/23 10:56 Pulse Ox 94 06/18/23 10:56 O2 Del Method Room Air 06/18/23 10:56 O2 Flow Rate 2 06/17/23 20:28 FiO2 28 06/15/23 20:05 Discharge Plan Discharge Patient Disposition: Home Condition: Stable Prescriptions: New gabapentin 100 mg Capsule 100 mg PO BID Qty: 60 0RF carbidopa-levodopa 25-100 mg Tablet 0.5 ea PO TID PRN (Reason: Restless Leg Syndrome) Qty: 30 0RF ciprofloxacin HCl [Cipro] 500 mg tablet 500 mg PO BID Qty: 24 0RF Continued atenolol 25 mg tablet 25 mg PO DAILY atorvastatin 40 mg tablet 40 mg PO DAILY diltiazem HCl [Cartia XT] 180 mg capsule,extended release 24hr 180 mg PO DAILY Co Q-10 300 mg capsule 300 mg PO DAILY Eliquis 5 mg tablet 5 mg PO BID finasteride 5 mg tablet 5 mg PO DAILY losartan 25 mg tablet 25 mg PO DAILY ascorbic acid (vitamin C) 500 mg capsule 500 mg PO DAILY multivitamin Tablet 1 tab PO DAILY nitroglycerin [Nitrostat] 0.4 mg tablet, sublingual 0.4 mg SUBLINGUAL Q5M PRN (Reason: chest pain) Qty: 25 3RF Rx Instructions: do not exceed 3 doses per episode omega-3 fatty acids 500 mg capsule 500 mg PO DAILY clopidogrel 75 mg tablet 75 mg PO DAILY Qty: 90 3RF isosorbide mononitrate 30 mg tablet extended release 24 hr 30 mg PO BID Qty: 180 3RF ranolazine 500 mg tablet extended release 12 hr 500 mg PO BID Qty: 180 3RF furosemide 40 mg tablet 40 mg PO DAILY Qty: 90 3RF potassium chloride 20 mEq tablet extended release 20 meq PO DAILY Qty: 90 3RF Rx Instructions: Take 1 tablet daily with Furosemide. Discontinued alprazolam 0.5 mg tablet 0.25 mg PO BEDTIME ropinirole 0.5 mg tablet 2 mg PO BEDTIME Discharge Orders: Discharge Order (Routine); Ordered 06/18/23 Ordered By: Archie Thomas Referrals: Gwen Sanon NP [Primary Care Provider] - 4-7 days (DR OFFICE WILL CALL PATIENT WITH APPOINTMENT FAXED D/C SUMMARY) Discharge Diet: Usual diet Discharge Activity: Increase activity as tolerated Patient Instructions: Opioid Safety Activity Restrictions/Additional Instructions: Take all medicine as prescribed Return for any concerns If any significant diarrhea notify your primary care provider Do not miss any doses of antibiotic Consider wound care referral if no healing left calf lesion Discharge Attestations Time Spent in Discharge Care*: greater than 30 min Quality Metrics Clinical Quality Measures [ No reported AMI, CVA or VTE this stay] Coding Level of Care Code 73702 Total time (in minutes) for Discharge: 41 Diagnoses Cellulitis of lower extremity L03.119 Leukocytosis D72.829 Atherosclerosis of leg with intermittent claudication I70.219 CKD (chronic kidney disease) N18.31 Chronic kidney disease stage: stage 3 (moderate) Chronic kidney disease stage 3 subtype: stage 3a (GFR 45-59) Diastolic CHF I50.32 Heart failure chronicity: chronic RLS (restless legs syndrome) G25.81 Time Spent (min) 41
== END 2023-06-18 12:24 | disposition home or self-care (01) | DRG 603 ==
LOC: ER 12:39 → MEDSURG 13:13
PROVIDERS: Admitting Provider Internal Medicine; Emergency Provider Family Medicine; PCP Nurse Practitioner Family; Visit Provider Internal Medicine
DX: L03.116 Cellulitis of left lower limb (principal); I13.0 Hypertensive heart and chronic kidney disease with heart failure and stage 1 through stage 4 chronic kidney disease, or unspecified chronic kidney disease; I50.32 Chronic diastolic (congestive) heart failure; I73.9 Peripheral vascular disease, unspecified; Z98.890 Other specified postprocedural states; N18.31 Chronic kidney disease, stage 3a; G25.81 Restless legs syndrome; B96.5 Pseudomonas (aeruginosa) (mallei) (pseudomallei) as the cause of diseases classified elsewhere; Z79.01 Long term (current) use of anticoagulants; Z79.02 Long term (current) use of antithrombotics/antiplatelets; I48.91 Unspecified atrial fibrillation; N40.0 Benign prostatic hyperplasia without lower urinary tract symptoms; E78.5 Hyperlipidemia, unspecified; G47.33 Obstructive sleep apnea (adult) (pediatric); I25.10 Atherosclerotic heart disease of native coronary artery without angina pectoris; Z95.1 Presence of aortocoronary bypass graft; F17.200 Nicotine dependence, unspecified, uncomplicated
CPT/HCPCS: 36415; 71045; 73590; 80048; 80053; 80202; 81003; 83605; 85025; 87040; 87077; 87186; 87205; 93971; 94640; 94660; 96365; 96375; 99285; J1940; J2543; J3370; J7050; J7626

== ENCOUNTER → 2023-09-08 13:23 | Outpatient (BNVA) | payer MEDICARE, OTHER, SELFPAY | PROVIDERS: PCP Nurse Practitioner Family; Visit Provider Internal Medicine | DX: Z98.890 Other specified postprocedural states (principal); Z86.79 Personal history of other diseases of the circulatory system; Z95.1 Presence of aortocoronary bypass graft; I48.19 Other persistent atrial fibrillation; Z79.01 Long term (current) use of anticoagulants; I11.0 Hypertensive heart disease with heart failure; I50.32 Chronic diastolic (congestive) heart failure; F17.200 Nicotine dependence, unspecified, uncomplicated | CPT/HCPCS: 99214 ==

== ENCOUNTER 2024-01-13 07:17 | Emergency (ER) | payer MEDICARE, OTHER, SELFPAY ==
[2024-01-13] VITALS (79 sets, daily range): BP systolic 124–175; BP diastolic 72–111; PULSE 82–110; RESP 14–34; TEMP 36.8; O2SAT 89–100; BMI 27.3
--- NOTE | 2024-01-13 07:26 | ECG_ITS ---
[facility] Test Date: 2024-01-13 Pat Name: Steven Tee Department: Room: Gender: Male Special Effects Person: : [id number] Requested By: Panchito Chavez Order Number: [id number] Carranza MD: Brant Sue M.D. Measurements Intervals [place] Rate: 100 P: 0 AL: 0 QRS: 117 QRSD: 161 T: -36 QT: 375 QTc: 484 Interpretive Statements ATRIAL FIBRILLATION WITH RAPID VENTRICULAR RESPONSE WITH ABERRANT CONDUCTION OR VENTRICULAR PREMATURE COMPLEXES RIGHT BUNDLE BRANCH BLOCK [120+ ms QRS DURATION, UPRIGHT V1, 40+ ms S IN I/aVL/V4/V5/V6] LEFT POSTERIOR FASCICULAR BLOCK [QRS AXIS > 109, INFERIOR Q] ST DEPRESSION, CONSIDER SUBENDOCARDIAL INJURY [0.1+ mV ST DEPRESSION] Compared to ECG 11/19/2021 17:43:53 Aberrant conduction of supraventricular beat(s) now present Ventricular premature complex(es) now present ST (T wave) deviation now present Electronically Signed On 01-13-2024 9:11:59 ELECTROPHYSIOLOGY NURSE PRACTITIONER by Brant Sue M.D. [id number]
--- NOTE | 2024-01-13 07:37 | XR_ITS ---
WS: [id number] PORTABLE CHEST HISTORY: cp COMPARISON: 06/15/2023 Prior CABG. Several of the sternotomy wires are fractured. Lungs are hyperexpanded. No consolidations. No pleural effusion or pneumothorax. Cardiac size: Mildly enlarged cardiac silhouette. Mediastinum/Aorta: Mild atherosclerosis aorta. Degenerative changes at the glenohumeral joints. IMPRESSION: Mild cardiomegaly and prior CABG. Emphysema. No pneumonia.
[2024-01-13 07:44] LABS: Basophils # 0.1 10^3/uL (0.0-0.1); Basophils % 0.8 %; Eosinophils # 0.2 10^3/uL (0.0-0.8); Eosinophils % 2.2 %; Hematocrit 47.2 % (37-53); Lymphocytes # 1.1 10^3/uL (0.8-4.8); Lymphocytes % 11.1 %; Mean Corpuscular HGB Conc 33.5 g/dL (30-55); Mean Corpuscular Hemoglobin 35.6 pg (27-33); Mean Corpuscular Volume 106.3 fl (82-101); Mean Platelet Volume 9.4 fL (7.4-10.4); Monocytes # 1.1 10^3/uL (0.2-0.9); Monocytes % 11.2 %; Neutrophils # 7.12 10^3/uL (1.8-7.7); Neutrophils % 70.8 %; Nucleated Red Blood Cells % 0 %; Platelet Count 164 10^3/cmm (157-399); Red Blood Count 4.44 10^6/uL (3.85-5.65); Red Cell Distribution Width 15.5 % (12.1-15.1); White Blood Count 10.04 10^3/uL (3.29-11.43)
--- NOTE | 2024-01-13 07:53 | W.ED.CHESTPA ---
HPI - Chest Pain General: Chief Complaint: Chest Pain Stated Complaint: Chest Pains Time Seen by Provider: 01/13/24 07:31 Source: patient and family Mode of arrival: ambulatory Limitations: no limitations History of Present Illness: This patient presents to our emergency department because of episodes of chest pain this morning. He states that he was awakened at approximately 6 AM he had lower substernal chest pressure symptoms. He states that he has had 2 bypasses and he knows what chest pain is . He states he took a single nitroglycerin which did not relieve his symptoms and approximately 15 minutes later took a second nitroglycerin and his symptoms abated. He has been having some cough and congestion over the past couple months and has had therapy from his primary care clinic for that condition without much improvement. He is still a tobacco user. He states he has an inhaler but does not seem to help him much and he has a nebulizer but does not use it because it dries him out. He denies any fevers or chills he is. He states he occasionally produces sputum with his cough but otherwise is mostly dry cough. Denies any fevers or chills etc. Been faithful to all his usual medications. MD complaint: chest heaviness Pertinent past history: coronary artery disease and CABG Onset: during rest Pain location: substernal Pain radiation: none Quality: fullness Associated symptoms: Deny abdominal pain, fever(s), nausea, palpitations, syncope or vomiting Treatment prior to arrival: nitroglycerin Risk Factors: Coronary artery disease risk factors: smoking history Review of Systems Const: Denies: fever(s) or chills Eyes: Denies: change in vision ENMT: Denies: throat pain or odynophagia Card: Denies: palpitations, syncope or pre-syncope Resp: Reports: non-productive cough and wheezing GI: Denies: abdominal pain, nausea, vomiting or diarrhea : Denies: flank pain, difficulty urinating or dysuria Musc: Denies: neck pain, back pain, extremity pain or extremity swelling Skin/Breast: Denies: rash Neuro: Denies: headache(s), numbness in extremities or weakness in extremities Psych: Denies: anxiety Howard/Lymph: Reports: easy bruising [facility] ED PFSH: Medical History SHARON (obstructive sleep apnea) History of sleep study (01/2021) severe obstructive sleep apnea, optimal pressure setting 6cm, with recommendation for auto-titrating CPAP 5-9 cm Sleep apnea Atherosclerosis of leg with intermittent claudication RLS (restless legs syndrome) History of cardioversion 03/16/2019 BPH (benign prostatic hyperplasia) Hyperlipidemia CAD (coronary artery disease) Unstable angina HTN (hypertension), benign Varicose veins of bilateral lower extremities with other complications Atrial fibrillation Diastolic CHF CKD (chronic kidney disease) Surgical History S/P coronary angiogram 04/29/2007 S/P carotid endarterectomy S/P AAA (abdominal aortic aneurysm) repair with [place] endograft S/P femoral-femoral bypass surgery S/P CABG (coronary artery bypass graft) 1988 X1, 2006 X2 Family History Brother Cancer CAD (coronary artery disease) Diabetes Mother Heart disease CAD (coronary artery disease) Diabetes Sister CAD (coronary artery disease) Denies family history of Clotting disorder Dementia Chronic kidney disease (CKD) Suicide Anesthesia complication Bleeding disorder Lung disease Stroke Social History Smoking and tobacco/nicotine status: current every day tobacco/nicotine user Alcohol intake: never Substance/Drug Use: never Lives independently: Yes Household members: spouse Marital status: Physical Exam Narrative: EXAM NARRATIVE: He is alert elderly gentleman who is in no acute distress and cooperative. Const: COMMON NORMALS: no acute distress, average body habitus and patient oriented x3 GENERAL APPEARANCE: cooperative and comfortable NUTRITIONAL APPEARANCE: overweight ORIENTATION/CONSCIOUSNESS: Yes awake HENMT: COMMON NORMALS: normocephalic, Normal nasal mucous membranes and turbinates present, moist oral mucous membranes and oropharynx normal HEAD & SCALP: normocephalic NOSE: Normal nasal mucous membranes and turbinates present Eye: COMMON NORMALS: Equal, round and reactive pupils present, EOMs intact bilaterally and conjunctivae normal CONJUNCTIVA: Yes conjunctivae normal PUPIL: Yes Equal, round and reactive pupils present Neck/C-Spine: COMMON NORMALS: full ROM, no lymphadenopathy, no JVD and No carotid bruits Chest: COMMONS NORMALS: normal inspection of the chest and normal palpation of entire chest wall Resp: COMMON NORMALS: normal respiratory effort and No retractions EFFORT & INSPECTION: Yes able to speak in complete sentences AUSCULTATION: rhonchi and wheezes Cardio: COMMON NORMALS: no JVD, regular rate, regular rhythm, No murmurs present (Cardio) and Peripheral pulses 2+ throughout RATE: regular rate RHYTHM: regular rhythm PERIPHERAL PULSES: Peripheral pulses 2+ throughout GI: COMMON NORMALS: Normal to inspection, nondistended, normoactive bowel sounds present, Soft to palpation and non-tender PALPATION: Yes Soft to palpation : COMMON NORMALS: Yes no CVA tenderness BLADDER/KIDNEY EXAM: Yes no CVA tenderness Back/Pelvis: COMMON NORMALS: no CVA tenderness, thoracic and lumbar spine normal to inspection, no thoracic nor lumbar tenderness and thoraco-lumbar ROM normal Extremity: COMMON NORMALS: normal to inspection, full ROM and capillary refill normal NARRATIVE EXTREMITY EXAM: Bilateral pretibial edema. Neuro: COMMON NORMALS: patient oriented x3, moves all extremities, no focal motor deficits and no sensory deficits noted Psych: COMMON NORMALS: mental status grossly normal Skin: COMMON NORMALS: no rashes or lesions noted, no wounds and turgor normal GENERAL SKIN EXAM: no rashes or lesions noted and turgor normal Course Reevaluation(s): Reevaluation #1: Improved after DuoNeb. Will send a second troponin. As his initial troponin is elevated but he is pain-free at this time. Time: 10:35 Reevaluation #2: Patient was reexamined. He is feeling better. Reauscultation of lungs reveals no wheezes or rhonchi at this time. Serial troponins are reassuring as well as serial EKGs. He has a chronic elevation in his troponin likely due to his his chronic CAD as well as his chronic congestive heart failure. At this time no evidence to suggest ACS, pneumonia, etc. at this time. Will go ahead and continue him on an MDI and also increase his Lasix for the next 4 days and then have him follow-up with his regular doctor. We also discussed return precautions with both he and family. Time: 13:38 Vital Signs: Vital signs: Vital Signs Temperature 98.3 F 01/13/24 07:29 Pulse Rate 87 01/13/24 13:25 Respiratory Rate 32 H 01/13/24 13:25 Blood Pressure 136/90 01/13/24 13:25 Pulse Oximetry 90 01/13/24 13:25 Oxygen Delivery Me thod Room Air 01/13/24 10:25 MDM - Chest Pain Medical Decision Making This patient with a known history of congestive heart failure as well as COPD and coronary artery disease presented to the emergency department because these had an episode of chest pain this morning lasted for approximately 20 minutes and was relieved by a second nitroglycerin. He is also had cough and congestion this been intermittent and lasting for the last approximately 2 months. No recent fevers or productive cough. Known history of coronary disease with 2 previous bypasses and is on chronic antianginal therapy. Does not use a metered-dose inhaler or nebulizer at home for his COPD. Clinical exam revealed him to be alert his chest exam revealed rhonchi and wheezes but no evidence of acute respiratory difficulty at the time of initial examination. Workup initial initiated to ensure no evidence of ACS, worsening heart failure etc. Initial troponin was elevated above the URL but a second biomarker was essentially unchanged and EKGs revealed chronic atrial fibrillation without any acute or dynamic EKG changes. Chest x-ray was unrevealing for any evidence of pneumonia or other concerns. His BNP was elevated consistent with prior BNP's. He received the benefit of a DuoNeb which markedly improved him symptomatically as well as objectively with markedly decreased wheezes and crackles. We discussed that there is no evidence of ACS etc. at this time but likely he would benefit from a beta agonist and perhaps even a long acting anticholinergic the latter of which can be addressed by his primary home care administrator. We will increase his Lasix for approximately 4 days and have him resume his usual dose and then also provide a beta agonist rescue inhaler. This was all discussed with both patient and family who voiced understanding. Medical Records I reviewed the patient's medical records. Lab Data I reviewed the patient's lab results. 01/13/24 07:30 01/13/24 07:30 Laboratory Results WBC 10.04 10^3/uL (3.29-11.43) 01/13/24 07:30 RBC 4.44 10^6/uL (3.85-5.65) 01/13/24 07:30 Hgb 15.80 g/dL (11.27-16.99) 01/13/24 07:30 Hct 47.2 % (37-53) 01/13/24 07:30 MCV 106.3 fl (82-101) H 01/13/24 07:30 MCH 35.6 pg (27-33) H 01/13/24 07:30 MCHC 33.5 g/dL (30-55) 01/13/24 07:30 RDW 15.5 % (12.1-15.1) H 01/13/24 07:30 Plt Count 164 10^3/cmm (157-399) 01/13/24 07:30 MPV 9.4 fL (7.4-10.4) 01/13/24 07:30 Neut % (Auto) 70.8 % 01/13/24 07:30 Lymph % (Auto) 11.1 % 01/13/24 07:30 [place] % (Auto) 11.2 % 01/13/24 07:30 Eos % (Auto) 2.2 % 01/13/24 07:30 Baso % (Auto) 0.8 % 01/13/24 07:30 Neut # (Auto) 7.12 10^3/uL (1.8-7.7) 01/13/24 07:30 Lymph # (Auto) 1.1 10^3/uL (0.8-4.8) 01/13/24 07:30 [place] # (Auto) 1.1 10^3/uL (0.2-0.9) H 01/13/24 07:30 Eos # (Auto) 0.2 10^3/uL (0.0-0.8) 01/13/24 07:30 Baso # (Auto) 0.1 10^3/uL (0.0-0.1) 01/13/24 07:30 Nucleated RBC % (auto) 0 % 01/13/24 07:30 Nucleated RBCs # 0.0 /100WBC 01/13/24 07:30 Sodium 139 mmol/L (136-145) 01/13/24 07:30 Potassium 4.6 mmol/L (3.5-5.1) 01/13/24 07:30 Chloride 105 mmol/L (98-107) 01/13/24 07:30 Carbon Dioxide 22 mmol/L (22-29) 01/13/24 07:30 Anion Gap 16.6 (5-19) 01/13/24 07:30 BUN 46 mg/dL (8-23) H 01/13/24 07:30 Creatinine 1.6 mg/dL (0.7-1.2) H 01/13/24 07:30 GFR Calculation Not Reportable 01/13/24 07:30 Glucose 102 mg/dL (65-115) 01/13/24 07:30 Calculated Osmolality 300 mOsm/kg (285-295) H 01/13/24 07:30 Calcium 8.6 mg/dL (8.5-10.5) 01/13/24 07:30 Total Bilirubin 0.8 mg/dL (0.15-1.2) 01/13/24 07:30 AST 29 U/L (0-40) 01/13/24 07:30 ALT 33 U/L (0-41) 01/13/24 07:30 Alkaline Phosphatase 134 U/L (40-130) H 01/13/24 07:30 Troponin T Baseline 67 ng/L (0-15) H 01/13/24 07:30 Troponin T 120 Minute 68.00 ng/L (0-15) H 01/13/24 10:00 Delta Troponin T 1.00 ABS# (0-10) 01/13/24 10:00 NT-Pro-B Natriuret Pep 1642 pg/mL (0-450) H 01/13/24 07:30 Total Protein 6.1 g/dL (6.6-8.7) L 01/13/24 07:30 Albumin 3.9 g/dL (3.5-5.2) 01/13/24 07:30 Globulin 2.2 g/dL (1.3-4.6) 01/13/24 07:30 All radiology interpretation(s) finalized by discharge EKG Data EKG 1: I personally reviewed and interpreted this EKG as follows: Interpretation: Contemporaneous review of initial EKG reveals a ventricular rate of 100 bpm. Consistent with atrial fibrillation with a borderline rapid ventricular response. Has a normal QRS duration. Has normal corrected QT interval. Right bundle branch block pattern present. ST depressions noted limb lead II and well as precordial leads 4 5 and 6. However compared with EKG from 11/19/2021 no acute changes in his ST segments. EKG 2: I personally reviewed and interpreted this EKG as follows: Interpretation: Repeat EKG was interpreted revealed a ventricular rate of 90 bpm consistent with atrial fibrillation. He has a persistent right bundle branch block pattern with nonspecific ST-T wave changes essentially unchanged from prior tracing earlier this visit as well as all tracings. Discharge Plan Discharge Patient Disposition: Home Clinical Impression: Atrial fibrillation, chronic, Congestive heart failure, COPD with chronic bronchitis Condition: Stable Prescriptions: New albuterol sulfate 90 mcg/actuation HFA aerosol inhaler 2 inh inhalation Q4H Qty: 8.5 2RF Rx Instructions: use with spacer No Action atorvastatin 40 mg tablet 40 mg PO QPM diltiazem HCl [Cartia XT] 180 mg capsule,extended release 24hr 180 mg PO DAILY Eliquis 5 mg tablet 5 mg PO BID finasteride 5 mg tablet 5 mg PO DAILY losartan 25 mg tablet 25 mg PO DAILY ascorbic acid (vitamin C) 500 mg capsule 500 mg PO DAILY multivitamin Tablet 1 tab PO DAILY nitroglycerin [Nitrostat] 0.4 mg tablet, sublingual 0.4 mg SUBLINGUAL Q5M PRN (Reason: chest pain) Qty: 25 3RF Rx Instructions: do not exceed 3 doses per episode ropinirole 2 mg tablet 2 mg PO QPM alprazolam [Xanax] 0.25 mg tablet 0.125 mg PO TID PRN (Reason: anxiety) omega-3 fatty acids 500 mg capsule 500 mg PO DAILY furosemide 40 mg tablet 40 mg PO DAILY Qty: 90 3RF potassium chloride 20 mEq tablet extended release 20 meq PO DAILY Qty: 90 3RF clopidogrel 75 mg tablet 75 mg PO DAILY Qty: 90 3RF isosorbide mononitrate 30 mg tablet extended release 24 hr 30 mg PO BID Qty: 180 3RF ranolazine 500 mg tablet extended release 12 hr 500 mg PO BID Qty: 180 3RF doxepin 3 mg tablet 3 mg PO BEDTIME PRN (Reason: Sleep) carbidopa-levodopa 25-100 mg Tablet 0.5 ea PO TID PRN (Reason: Restless Leg Syndrome) Qty: 30 0RF Discharge Orders: Discharge ED (Routine); Ordered 01/13/24 Ordered By: Panchito Chavez Referrals: Gwen Sanon ACCOUNTANT [employer]UDGET [Primary Care Provider] - Discharge Diet: Usual diet and Low Salt Discharge Activity: Increase activity as tolerated Patient Instructions: Opioid Safety, Pain Management Activity Restrictions/Additional Instructions: As we discussed while you are in the emergency department today your tests are reassuring and did not reveal acute head or heart attack. You do have history of chronic heart failure as well as COPD and to help with those symptoms we recommend taking a second dose of your 40 mg Lasix pill at noon each day for the next 4 days and then resume back to your normal once a day dosing. So recommend that she use the inhaler we have prescribed with spacer 4-6 times daily to help with any cough or shortness of breath. If you develop any sustained chest pain that lasts longer than 30 minutes or is not relieved after using 3 nitroglycerin and 15 minutes you should call 911 or proceed to the nearest emergency department. Coding Level of Care Code ED Fishing Manager for Britany Oswald
[2024-01-13 08:00] LABS: Troponin(5th) Baseline 67 ng/L (0-15)
[2024-01-13 08:05] LABS: Alanine Aminotransferase 33 U/L (0-41); Albumin Level 3.9 g/dL (3.5-5.2); Alkaline Phosphatase 134 U/L (40-130); Aspartate Amino Transferase 29 U/L (0-40); Blood Urea Nitrogen 46 mg/dL (8-23); Calcium 8.6 mg/dL (8.5-10.5); Carbon Dioxide 22 mmol/L (22-29); Chloride 105 mmol/L (98-107); Globulin 2.2 g/dL (1.3-4.6); Glucose 102 mg/dL (65-115); NT Pro B Type Natriuretic Pept 1642 pg/mL (0-450); Osmolality Calculated 300 mOsm/kg (285-295); Sodium 139 mmol/L (136-145); Total Bilirubin 0.8 mg/dL (0.15-1.2); Total Protein 6.1 g/dL (6.6-8.7)
[2024-01-13 08:10] LABS: Anion Gap 16.6 (5-19); Creatinine Clr Calc Pharmacy 34.5463; Potassium 4.6 mmol/L (3.5-5.1)
[2024-01-13] MEDS: ipratropium-albuterol 3 mL Neb INHALATION (08:23)
--- NOTE | 2024-01-13 09:37 | ECG_ITS ---
[facility] Test Date: 2024-01-13 Pat Name: Steven Tee Department: Room: Gender: Male Barber: : 1935 Requested By: Panchito Chavez Order Number: [id number] Carranza MD: Brant Sue M.D. Measurements Intervals [place] Rate: 98 P: 0 GA: 0 QRS: 124 QRSD: 161 T: -33 QT: 380 QTc: 486 Interpretive Statements ATRIAL FIBRILLATION WITH ABERRANT CONDUCTION OR VENTRICULAR PREMATURE COMPLEXES RIGHT BUNDLE BRANCH BLOCK [120+ ms QRS DURATION, UPRIGHT V1, 40+ ms S IN I/aVL/V4/V5/V6] LEFT POSTERIOR FASCICULAR BLOCK [QRS AXIS > 109, INFERIOR Q] MODERATE T-WAVE ABNORMALITY, CONSIDER LATERAL ISCHEMIA [-0.1+ mV T-WAVE IN I/aVL/V5/V6] Compared to ECG 01/13/2024 07:26:44 T-wave abnormality now present Possible ischemia now present ST (T wave) deviation no longer present Electronically Signed On 01-13-2024 11:08:41 PLATE SHEAR OPERATOR by Brant Sue M.D. [id number]
== END 2024-01-13 14:09 | disposition home or self-care (01) ==
PROVIDERS: Emergency Provider Emergency Medicine; PCP Nurse Practitioner Family
DX: I48.20 Chronic atrial fibrillation, unspecified (principal); J44.89 Other specified chronic obstructive pulmonary disease; I11.0 Hypertensive heart disease with heart failure; I50.9 Heart failure, unspecified; Z79.01 Long term (current) use of anticoagulants; Z79.02 Long term (current) use of antithrombotics/antiplatelets; Z72.0 Tobacco use; E78.5 Hyperlipidemia, unspecified; I25.10 Atherosclerotic heart disease of native coronary artery without angina pectoris; I13.0 Hypertensive heart and chronic kidney disease with heart failure and stage 1 through stage 4 chronic kidney disease, or unspecified chronic kidney disease; N18.9 Chronic kidney disease, unspecified; Z95.1 Presence of aortocoronary bypass graft
CPT/HCPCS: 36415; 71045; 80053; 83880; 84484; 85025; 93005; 94640; 99285

== ENCOUNTER → 2024-03-08 09:31 | Outpatient (BNVA) | payer MEDICARE, OTHER, SELFPAY | PROVIDERS: PCP Nurse Practitioner Family; Visit Provider Nurse Practitioner Family | DX: I13.0 Hypertensive heart and chronic kidney disease with heart failure and stage 1 through stage 4 chronic kidney disease, or unspecified chronic kidney disease (principal); I50.32 Chronic diastolic (congestive) heart failure; N18.9 Chronic kidney disease, unspecified; I48.19 Other persistent atrial fibrillation; I25.700 Atherosclerosis of coronary artery bypass graft(s), unspecified, with unstable angina pectoris; F17.200 Nicotine dependence, unspecified, uncomplicated | CPT/HCPCS: 99214 ==

== ENCOUNTER 2024-03-09 05:12 | Inpatient (IN) | payer MEDICARE, OTHER, SELFPAY ==
[2024-03-09] VITALS (93 sets, daily range): BP systolic 117–188; BP diastolic 65–112; PULSE 79–113; RESP 14–42; TEMP 36.6; O2SAT 89–100; BMI 28.5; BMI 26.9
--- NOTE | 2024-03-09 05:14 | XRR_ITS ---
PROCEDURE INFORMATION: Exam: XR Chest Exam date and time: 03/09/2024 5:20 AM Age: 88 years old Clinical indication: Angina; Prior surgery; Surgery date: 6+ months; Surgery type: Cabg; Additional info: Chest pain TECHNIQUE: Imaging protocol: Radiologic exam of the chest. Views: 1 view. COMPARISON: CR XR chest 1V portable [id number] 01/13/2024 7:41 AM FINDINGS: Lungs: Mild reticular changes of interstitium stable from comparison. Negative for focal pulmonary consolidation. Pleural spaces: Unremarkable. No pleural effusion. No pneumothorax. Heart/Mediastinum: CABG. Chronic cardiac silhouette enlargement. Bones/joints: Unremarkable. XR/XR chest 1V portable [id number] IMPRESSION: No focal acute pulmonary disease identified.
--- NOTE | 2024-03-09 05:15 | ECG_ITS ---
[facility] Test Date: 2024-03-09 Pat Name: Steven Tee Department: Room: Gender: Male Research Consultant: : 1935 Requested By: Rico Costa Order Number: [id number] Tere MD: José Luis Becker M.D. Measurements Intervals [place] Rate: 111 P: 0 FL: 0 QRS: 116 QRSD: 145 T: -61 QT: 357 QTc: 486 Interpretive Statements ATRIAL FIBRILLATION WITH RAPID VENTRICULAR RESPONSE WITH ABERRANT CONDUCTION OR VENTRICULAR PREMATURE COMPLEXES RIGHT BUNDLE BRANCH BLOCK [120+ ms QRS DURATION, UPRIGHT V1, 40+ ms S IN I/aVL/V4/V5/V6] LEFT POSTERIOR FASCICULAR BLOCK [QRS AXIS > 109, INFERIOR Q] ST DEVIATION AND MODERATE T-WAVE ABNORMALITY, CONSIDER LATERAL ISCHEMIA [-0.1+ mV T-WAVE IN I/aVL/V5/V6] ST DEVIATION AND MODERATE T-WAVE ABNORMALITY, CONSIDER INFERIOR ISCHEMIA [-0.1+ mV T-WAVE IN II/aVF] Compared to ECG 01/13/2024 09:52:58 No significant changes Electronically Signed On 03-09-2024 18:27:14 CDT by José Luis Becker M.D. [id number]
--- NOTE | 2024-03-09 05:20 | ED_ITS ---
Documented by User: Rico Costa DO 03/09/24 21:05 HPI - Chest Pain 2 General: Chief Complaint: Chest Pain Stated Complaint: Chest Pains Time Seen by Provider: 03/09/24 05:14 History of Present Illness: Patient presents to the ER with complaints of off-and-on chest pain for the last couple weeks. Patient has been taking nitro several times a week. Patient is taken for nitro since 4 PM yesterday. His last dose was on the way here. Patient is chest pain-free currently. Patient denies any shortness of breath, diaphoresis, patient just saw Lelo Talley cardiology yesterday she is going to set him up for a echo, possible Lexiscan stress test. Patient currently on Eliquis, Plavix, isosorbide, Ranexa Review of Systems 2 General: Reports: 10 or more systems reviewed and unremarkable except in HPI and below PFSH ED 2 PFSH: Medical History Aortic stenosis Tobacco abuse Peripheral arterial disease SHARON (obstructive sleep apnea) History of sleep study (01/2021) severe obstructive sleep apnea, optimal pressure setting 6cm, with recommendation for auto-titrating CPAP 5-9 cm Sleep apnea Atherosclerosis of leg with intermittent claudication RLS (restless legs syndrome) History of cardioversion 03/16/2019 BPH (benign prostatic hyperplasia) Hyperlipidemia CAD (coronary artery disease) Unstable angina HTN (hypertension), benign Varicose veins of bilateral lower extremities with other complications Atrial fibrillation Diastolic CHF CKD (chronic kidney disease) Surgical History S/P coronary angiogram 04/29/2007 S/P carotid endarterectomy S/P AAA (abdominal aortic aneurysm) repair with [place] endograft S/P femoral-femoral bypass surgery S/P CABG (coronary artery bypass graft) 1988 X1, 2006 X2 Family History Brother Cancer CAD (coronary artery disease) Diabetes Mother Heart disease CAD (coronary artery disease) Diabetes Sister CAD (coronary artery disease) Denies family history of Clotting disorder Dementia Chronic kidney disease (CKD) Suicide Anesthesia complication Bleeding disorder Lung disease Stroke Social History Smoking and tobacco/nicotine status: current every day tobacco/nicotine user Alcohol intake: never Substance/Drug Use: never Lives independently: Yes Household members: spouse Marital status: Physical Exam 2 Const: COMMON NORMALS: no acute distress, average body habitus, patient oriented x3, no limitations, healthy appearing, alert and well nourished HENMT: COMMON NORMALS: normocephalic, atraumatic, hearing grossly normal bilaterally, external ears normal, Normal external nose present, moist oral mucous membranes and oropharynx normal HEAD & SCALP: normocephalic and atraumatic NOSE: Normal external nose present EXTERNAL EAR: Yes external ears normal Neck/C-Spine: COMMON NORMALS: no JVD Chest: COMMONS NORMALS: normal inspection of the chest and normal palpation of entire chest wall Resp: COMMON NORMALS: normal respiratory effort, No retractions and No use of accessory muscles; negative for clear to auscultation bilaterally (Occasional expiratory wheeze) AUSCULTATION: not clear to auscultation bilaterally (Occasional expiratory wheeze) Cardio: COMMON NORMALS: no JVD, regular rate, regular rhythm, S1 normal heart sound present, S2 normal heart sound present, No gallops present (Cardio), No clicks present (Cardio), No murmurs present (Cardio) and No rub (Cardio) R ATE: regular rate RHYTHM: regular rhythm HEART SOUNDS: S1 normal heart sound present and S2 normal heart sound present GI: COMMON NORMALS: Normal to inspection, nondistended, normoactive bowel sounds present, Soft to palpation, non-tender, No hepatosplenomegaly present and no masses PALPATION: Yes Soft to palpation and Yes No hepatosplenomegaly present Extremity: NARRATIVE EXTREMITY EXAM: 1-2+ pitting edema bilateral lower extre mities Neuro: COMMON NORMALS: patient oriented x3 SENSORIUM/ORIENTATION: Yes alert Course 2 Vital Signs: Vital signs: Vital Signs Temperature 97.6 F 03/12/24 04:00 Pulse Rate 74 03/12/24 12:36 Respiratory Rate 21 H 03/12/24 12:36 Blood Pressure 114/69 03/12/24 12:36 Pulse Oximetry 95 03/12/24 09:20 Oxygen Delivery Me thod Room Air 03/12/24 11:09 Oxygen Flow Rate 2 03/09/24 12:40 MDM - Chest Pain Medical Decision Making Care transferred over to daytime doctor shift change Lab Data 03/11/24 03:48 03/12/24 08:07 Radiology Impressions Chest X-Ray 03/09/24 05:14 IMPRESSION: No focal acute pulmonary disease identified. Laboratory Results WBC 13.18 10^3/uL (3.29-11.43) H 03/09/24 05:24 RBC 4.13 10^6/uL (3.85-5.65) 03/09/24 05:24 Hgb 14.70 g/dL (11.27-16.99) 03/09/24 05:24 Hct 44.1 % (37-53) 03/09/24 05:24 MCV 106.8 fl (82-101) H 03/09/24 05:24 MCH 35.6 pg (27-33) H 03/09/24 05:24 MCHC 33.3 g/dL (30-55) 03/09/24 05:24 RDW 14.9 % (12.1-15.1) 03/09/24 05:24 Plt Count 178 10^3/cmm (157-399) 03/09/24 05:24 MPV 9.3 fL (7.4-10.4) 03/09/24 05:24 Neut % (Auto) 76.0 % 03/09/24 05:24 Lymph % (Auto) 6.7 % 03/09/24 05:24 [place] % (Auto) 10.8 % 03/09/24 05:24 Eos % (Auto) 1.1 % 03/09/24 05:24 Baso % (Auto) 0.5 % 03/09/24 05:24 Neut # (Auto) 10.02 10^3/uL (1.8-7.7) H 03/09/24 05:24 Lymph # (Auto) 0.9 10^3/uL (0.8-4.8) 03/09/24 05:24 [place] # (Auto) 1.4 10^3/uL (0.2-0.9) H 03/09/24 05:24 Eos # (Auto) 0.1 10^3/uL (0.0-0.8) 03/09/24 05:24 Baso # (Auto) 0.1 10^3/uL (0.0-0.1) 03/09/24 05:24 Nucleated RBC % (auto) 0 % 03/09/24 05:24 Nucleated RBCs # 0.0 /100WBC 03/09/24 05:24 Sodium 138 mmol/L (136-145) 03/09/24 05:24 Potassium 4.9 mmol/L (3.5-5.1) 03/09/24 05:24 Chloride 101 mmol/L (98-107) 03/09/24 05:24 Carbon Dioxide 27 mmol/L (22-29) 03/09/24 05:24 Anion Gap 14.9 (5-19) 03/09/24 05:24 BUN 61 mg/dL (8-23) H 03/09/24 05:24 Creatinine 2.3 mg/dL (0.7-1.2) H 03/09/24 05:24 GFR Calculation Not Reportable 03/09/24 05:24 Glucose 117 mg/dL (65-115) H 03/09/24 05:24 Calculated Osmolality 304 mOsm/kg (285-295) H 03/09/24 05:24 Calcium 9.0 mg/dL (8.5-10.5) 03/09/24 05:24 Total Bilirubin 0.8 mg/dL (0.15-1.2) 03/09/24 05:24 AST 32 U/L (0-40) 03/09/24 05:24 ALT 35 U/L (0-41) 03/09/24 05:24 Alkaline Phosphatase 125 U/L (40-130) 03/09/24 05:24 Troponin T Baseline 53 ng/L (0-15) H 03/09/24 05:24 Troponin T 120 Minute 50.14 ng/L (0-15) H 03/09/24 07:16 Delta Troponin T -2.86 ABS# (0-10) L 03/09/24 07:16 NT-Pro-B Natriuret Pep 2475 pg/mL (0-450) H 03/09/24 05:24 Total Protein 6.1 g/dL (6.6-8.7) L 03/09/24 05:24 Albumin 4.0 g/dL (3.5-5.2) 03/09/24 05:24 Globulin 2.1 g/dL (1.3-4.6) 03/09/24 05:24 All radiology interpretation(s) finalized by discharge Discharge Plan Discharge Patient Disposition: Admitted As Inpatient Admit Provider: Archie Thomas Clinical Impression: Atrial fibrillation, Diastolic CHF, Chest pain, GODFREY (acute kidney injury), Atherosclerosis of coronary artery of [place] heart without angina pectoris Condition: Stable Discharge Diet: Cardiac Discharge Activity: Resume usual activity Sign Out Sign Out Data: Patient Sign Out occurred on 03/09/24 at 05:56. Patient's care was discussed, and care was transferred from Rico Costa DO to New Gillespie DO. Coding Level of Care Code ED Brake Repair Mechanic for Chg Fwd Documented by User: New Gillespie DO 03/18/24 06:33 HPI - Chest Pain 2 General: Chief Complaint: Chest Pain Stated Complaint: Chest Pains Time Seen by Provider: 03/09/24 05:14 PFSH ED 2 PFSH: Medical History Aortic stenosis Tobacco abuse Peripheral arterial disease SHARON (obstructive sleep apnea) History of sleep study (01/2021) severe obstructive sleep apnea, optimal pressure setting 6cm, with recommendation for auto-titrating CPAP 5-9 cm Sleep apnea Atherosclerosis of leg with intermittent claudication RLS (restless legs syndrome) History of cardioversion 03/16/2019 BPH (benign prostatic hyperplasia) Hyperlipidemia CAD (coronary artery disease) Unstable angina HTN (hypertension), benign Varicose veins of bilateral lower extremities with other complications Atrial fibrillation Diastolic CHF CKD (chronic kidney disease) Surgical History S/P coronary angiogram 04/29/2007 S/P carotid endarterectomy S/P AAA (abdominal aortic aneurysm) repair with [place] endograft S/P femoral-femoral bypass surgery S/P CABG (coronary artery bypass graft) 1988 X1, 2007 X2 Family History Brother Cancer CAD (coronary artery disease) Diabetes Mother Heart disease CAD (coronary artery disease) Diabetes Sister CAD (coronary artery disease) Denies family history of Clotting disorder Dementia Chronic kidney disease (CKD) Suicide Anesthesia complication Bleeding disorder Lung disease Stroke Social History Smoking and tobacco/nicotine status: current every day tobacco/nicotine user Alcohol intake: never Substance/Drug Use: never Lives independently: Yes Household members: spouse Marital status: Course 2 Vital Signs: Vital signs: Vital Signs Temperature 97.6 F 03/12/24 04:00 Pulse Rate 74 03/12/24 12:36 Respiratory Rate 21 H 03/12/24 12:36 Blood Pressure 114/69 03/12/24 12:36 Pulse Oximetry 95 03/12/24 09:20 Oxygen Delivery Me thod Room Air 03/12/24 11:09 Oxygen Flow Rate 2 03/09/24 12:40 MDM - Chest Pain Medical Decision Making Care transferred over to daytime doctor shift change Care assumed at change of shift. Patient is escalating angina. Also has A-fib with RVR and a history of aortic stenosis. Patient has responded well to to the Cardizem given rate is controlled. Discussed with hospitalist will admit. Patient also has mild acute kidney injury Medical Records I reviewed the patient's medical records. Lab Data I reviewed the patient's lab results. 03/11/24 03:48 03/12/24 08:07 Radiology Impressions Chest X-Ray 03/09/24 05:14 IMPRESSION: No focal acute pulmonary disease identified. Laboratory Results WBC 13.18 10^3/uL (3.29-11.43) H 03/09/24 05:24 RBC 4.13 10^6/uL (3.85-5.65) 03/09/24 05:24 Hgb 14.70 g/dL (11.27-16.99) 03/09/24 05:24 Hct 44.1 % (37-53) 03/09/24 05:24 MCV 106.8 fl (82-101) H 03/09/24 05:24 MCH 35.6 pg (27-33) H 03/09/24 05:24 MCHC 33.3 g/dL (30-55) 03/09/24 05:24 RDW 14.9 % (12.1-15.1) 03/09/24 05:24 Plt Count 178 10^3/cmm (157-399) 03/09/24 05:24 MPV 9.3 fL (7.4-10.4) 03/09/24 05:24 Neut % (Auto) 76.0 % 03/09/24 05:24 Lymph % (Auto) 6.7 % 03/09/24 05:24 [place] % (Auto) 10.8 % 03/09/24 05:24 Eos % (Auto) 1.1 % 03/09/24 05:24 Baso % (Auto) 0.5 % 03/09/24 05:24 Neut # (Auto) 10.02 10^3/uL (1.8-7.7) H 03/09/24 05:24 Lymph # (Auto) 0.9 10^3/uL (0.8-4.8) 03/09/24 05:24 [place] # (Auto) 1.4 10^3/uL (0.2-0.9) H 03/09/24 05:24 Eos # (Auto) 0.1 10^3/uL (0.0-0.8) 03/09/24 05:24 Baso # (Auto) 0.1 10^3/uL (0.0-0.1) 03/09/24 05:24 Nucleated RBC % (auto) 0 % 03/09/24 05:24 Nucleated RBCs # 0.0 /100WBC 03/09/24 05:24 Sodium 138 mmol/L (136-145) 03/09/24 05:24 Potassium 4.9 mmol/L (3.5-5.1) 03/09/24 05:24 Chloride 101 mmol/L (98-107) 03/09/24 05:24 Carbon Dioxide 27 mmol/L (22-29) 03/09/24 05:24 Anion Gap 14.9 (5-19) 03/09/24 05:24 BUN 61 mg/dL (8-23) H 03/09/24 05:24 Creatinine 2.3 mg/dL (0.7-1.2) H 03/09/24 05:24 GFR Calculation Not Reportable 03/09/24 05:24 Glucose 117 mg/dL (65-115) H 03/09/24 05:24 Calculated Osmolality 304 mOsm/kg (285-295) H 03/09/24 05:24 Calcium 9.0 mg/dL (8.5-10.5) 03/09/24 05:24 Total Bilirubin 0.8 mg/dL (0.15-1.2) 03/09/24 05:24 AST 32 U/L (0-40) 03/09/24 05:24 ALT 35 U/L (0-41) 03/09/24 05:24 Alkaline Phosphatase 125 U/L (40-130) 03/09/24 05:24 Troponin T Baseline 53 ng/L (0-15) H 03/09/24 05:24 Troponin T 120 Minute 50.14 ng/L (0-15) H 03/09/24 07:16 Delta Troponin T -2.86 ABS# (0-10) L 03/09/24 07:16 NT-Pro-B Natriuret Pep 2475 pg/mL (0-450) H 03/09/24 05:24 Total Protein 6.1 g/dL (6.6-8.7) L 03/09/24 05:24 Albumin 4.0 g/dL (3.5-5.2) 03/09/24 05:24 Globulin 2.1 g/dL (1.3-4.6) 03/09/24 05:24 Discharge Plan Discharge Patient Disposition: Admitted As Inpatient Admit Provider: Archie Thomas Clinical Impression: Atrial fibrillation, Diastolic CHF, Chest pain, GODFREY (acute kidney injury), Atherosclerosis of coronary artery of [place] heart without angina pectoris Condition: Stable Discharge Diet: Cardiac Discharge Activity: Resume usual activity Sign Out Sign Out Data: Patient Sign Out occurred on 03/09/24 at 05:56. Patient's care was discussed, and care was transferred from Rico Costa DO to New Gillespie DO. Coding Level of Care Code ED Brake Repair Mechanic for Britany Oswald
[2024-03-09 05:29] LABS: Basophils # 0.1 10^3/uL (0.0-0.1); Basophils % 0.5 %; Eosinophils # 0.1 10^3/uL (0.0-0.8); Eosinophils % 1.1 %; Hematocrit 44.1 % (37-53); Lymphocytes # 0.9 10^3/uL (0.8-4.8); Lymphocytes % 6.7 %; Mean Corpuscular HGB Conc 33.3 g/dL (30-55); Mean Corpuscular Hemoglobin 35.6 pg (27-33); Mean Corpuscular Volume 106.8 fl (82-101); Mean Platelet Volume 9.3 fL (7.4-10.4); Monocytes # 1.4 10^3/uL (0.2-0.9); Monocytes % 10.8 %; Neutrophils # 10.02 10^3/uL (1.8-7.7); Nucleated Red Blood Cells % 0 %; Platelet Count 178 10^3/cmm (157-399); Red Blood Count 4.13 10^6/uL (3.85-5.65); Red Cell Distribution Width 14.9 % (12.1-15.1); White Blood Count 13.18 10^3/uL (3.29-11.43)
[2024-03-09] MEDS: aspirin 81 mg Chew Tablet 324 MG PO (05:34)
[2024-03-09 05:49] LABS: Troponin(5th) Baseline 53 ng/L (0-15)
[2024-03-09 06:04] LABS: Alanine Aminotransferase 35 U/L (0-41); Alkaline Phosphatase 125 U/L (40-130); Aspartate Amino Transferase 32 U/L (0-40); Blood Urea Nitrogen 61 mg/dL (8-23); Carbon Dioxide 27 mmol/L (22-29); Chloride 101 mmol/L (98-107); Creatinine Clr Calc Pharmacy 24.5054; Globulin 2.1 g/dL (1.3-4.6); Glucose 117 mg/dL (65-115); NT Pro B Type Natriuretic Pept 2475 pg/mL (0-450); Osmolality Calculated 304 mOsm/kg (285-295); Sodium 138 mmol/L (136-145); Total Bilirubin 0.8 mg/dL (0.15-1.2); Total Protein 6.1 g/dL (6.6-8.7)
[2024-03-09 06:05] LABS: Anion Gap 14.9 (5-19); Potassium 4.9 mmol/L (3.5-5.1)
[2024-03-09 07:45] LABS: Troponin 5 2HR 50.14 ng/L (0-15); Troponin 5 2HR Delta -2.86 ABS# (0-10)
[2024-03-09] MEDS: nitroglycerin 1 gm/inch oint Pkt 0.5 INCH TOPICAL (08:45)
--- NOTE | 2024-03-09 09:21 | ECG_ITS ---
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 Measurements Intervals [place] Rate: 86 P: 0 SC: 0 QRS: 110 QRSD: 145 T: -59 QT: 397 QTc: 476 Interpretive Statements ATRIAL FIBRILLATION WITH ABERRANT CONDUCTION OR VENTRICULAR PREMATURE COMPLEXES RIGHT BUNDLE BRANCH BLOCK [120+ ms QRS DURATION, UPRIGHT V1, 40+ ms S IN I/aVL/V4/V5/V6] LEFT POSTERIOR FASCICULAR BLOCK [QRS AXIS > 109, INFERIOR Q] ST DEVIATION AND MODERATE T-WAVE ABNORMALITY, CONSIDER INFERIOR ISCHEMIA [-0.1+ mV T-WAVE IN II/aVF] Compared to ECG 03/09/2024 05:15:09 No significant changes Electronically Signed On 03-09-2024 18:49:18 CDT by José Luis Becker M.D. [id number]
--- NOTE | 2024-03-09 10:16 | PC.NURSE ---
PT REPORTS PT CONTINUOUSLY MOVING HIS LEGS AND STATES THAT HE HAS RESTLESS LEGS SYNDROME. SHE REPORTS SHE GAVE HIM HIS DAILY ROPINIROLE 2MG THAT SHE HAD WITH HER.
--- NOTE | 2024-03-09 11:14 | ECG_ITS ---
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 Measurements Intervals [place] Rate: 82 P: 0 W[place]: 0 QRS: 109 QRSD: 154 T: -66 QT: 404 QTc: 474 Interpretive Statements ATRIAL FIBRILLATION RIGHT AXIS DEVIATION [QRS AXIS > 100] RIGHT BUNDLE BRANCH BLOCK [120+ ms QRS DURATION, UPRIGHT V1, 40+ ms S IN I/aVL/V4/V5/V6] ST DEVIATION AND MODERATE T-WAVE ABNORMALITY, CONSIDER INFERIOR ISCHEMIA [-0.1+ mV T-WAVE IN II/aVF] Compared to ECG 03/09/2024 09:21:58 Right-axis deviation now present Ventricular premature complex(es) no longer present Aberrant conduction of supraventricular beat(s) no longer present Left posterior fascicular block no longer present T-wave abnormality still present Possible ischemia still present Electronically Signed On 03-09-2024 18:52:15 CDT by José Luis Becker M.D. [id number]
[2024-03-09 12:25] LABS: Troponin 5 6HR 55.12 ng/L (0-15); Troponin 5 6HR Delta 2.12 ng/L (0-12)
--- NOTE | 2024-03-09 13:29 | P.HP_ITS ---
Providers/Chief Complaint 2 Admitting Physician: Archie Thomas MD Primary Care Provider: Gwen Sanon NP Chief Complaint: Chest Pains History of Present Illness Steven Tee is a 88 year old male presenting to the emergency department with shortness of breath and chest pain. He relates he has used at least 4 nitroglycerin since yesterday afternoon. He reports pain seems to come and go, going away every time he takes a nitroglycerin. He had recently seen cardiology, on March 08 and described intermittent chest discomfort as well. At that time it was thought he had some evidence of fluid overload, and there was concern he would need a nuclear stress test as well as an echo for evaluation of heart disease as well as aortic stenosis. He reports substernal chest discomfort. No nausea or vomiting. Reports his lower extremities have been significantly swollen. He believes he is urinating okay, without incontinence and believes as if his bladder is emptying. He has had no fever, cough, other illness. comments he has been wheezing quite a bit. He does continue to smoke. No blood in his stool or black or tarry stools. He has recently been on prednisone for his wheezing. In the emergency department he got some aspirin, and nitroglycerin ointment. Review of Systems 2 General: Reports: 10 or more systems reviewed and unremarkable except in HPI and below Card: Reports: chest pain Resp: Reports: dyspnea GI: Denies: abdominal pain, nausea, hematochezia or melena Medications/Allergies Home Medications Medication Instructions Recorded Confirmed Last Taken Type apixaban 5 mg tablet (Eliquis) 5 mg PO BID 04/16/20 03/09/24 03/08/24 History atorvastatin 40 mg tablet 40 mg PO QPM 04/16/20 03/09/24 03/08/24 History diltiazem HCl 180 mg 180 mg PO DAILY 04/16/20 03/09/24 03/08/24 History capsule,extended release 24 hr (Cartia XT) finasteride 5 mg tablet 5 mg PO DAILY 04/16/20 03/09/24 03/08/24 History losartan 25 mg tablet 25 mg PO DAILY 04/16/20 03/09/24 03/08/24 History multivitamin 1 tab PO DAILY 04/16/20 03/09/24 03/08/24 History nitroglycerin 0.4 mg sublingual 0.4 mg sublingual Q5M PRN chest 02/11/21 03/09/24 03/09/24 Rx tablet (Nitrostat) pain #25 tabs omega-3 fatty acids 500 mg capsule 500 mg PO DAILY 09/04/22 03/09/24 03/08/24 History furosemide 40 mg tablet 40 mg PO DAILY #90 tabs 11/13/22 03/09/24 03/08/24 Rx carbidopa 25 mg-levodopa 100 mg 0.5 ea PO TID PRN Restless Leg 06/18/23 03/09/24 01/12/24 Rx tablet Syndrome #30 tabs ropinirole 2 mg tablet 2 mg PO QPM 09/08/23 03/09/24 03/08/24 History clopidogrel 75 mg tablet 75 mg PO DAILY #90 tabs 09/09/23 03/09/24 03/08/24 Rx isosorbide mononitrate 30 mg 30 mg PO BID #180 tabs 10/22/23 03/09/24 03/09/24 Rx tablet,extended release 24 hr ranolazine 500 mg tablet,extended 500 mg PO BID #180 tabs 11/23/23 03/09/24 03/09/24 Rx release,12 hr potassium chloride 20 mEq See Rx Instructions .Route 01/15/24 03/09/24 03/08/24 Rx tablet,extended release .COMPLEX #90 tabs albuterol sulfate 90 mcg/actuation 2 inh inhalation Q4H PRN Shortness 03/09/24 03/09/24 Unknown History aerosol inhaler Of Breath doxycycline hyclate 100 mg capsule 100 mg PO DAILY 03/09/24 03/09/24 03/08/24 History prednisone 10 mg tablet See Rx Instructions .Route .COMPLEX 03/09/24 03/09/24 03/08/24 History Allergies Allergy/AdvReac Type Severity Reaction Status Date / Time No Known Allergies Allergy Verified 03/09/24 05:19 PFSH Acute 2 PFSH: Medical History SHARON (obstructive sleep apnea) History of sleep study (01/2021) severe obstructive sleep apnea, optimal pressure setting 6cm, with recommendation for auto-titrating CPAP 5-9 cm Sleep apnea Atherosclerosis of leg with intermittent claudication RLS (restless legs syndrome) History of cardioversion 03/16/2019 BPH (benign prostatic hyperplasia) Hyperlipidemia CAD (coronary artery disease) Unstable angina HTN (hypertension), benign Varicose veins of bilateral lower extremities with other complications Atrial fibrillation Diastolic CHF CKD (chronic kidney disease) Surgical History S/P coronary angiogram 04/29/2007 S/P carotid endarterectomy S/P AAA (abdominal aortic aneurysm) repair with [place] endograft S/P femoral-femoral bypass surgery S/P CABG (coronary artery bypass graft) 1988 X1, 2007 X2 Family History Brother Cancer CAD (coronary artery disease) Diabetes Mother Heart disease CAD (coronary artery disease) Diabetes Sister CAD (coronary artery disease) Denies family history of Clotting disorder Dementia Chronic kidney disease (CKD) Suicide Anesthesia complication Bleeding disorder Lung disease Stroke Social History Smoking and tobacco/nicotine status: current every day tobacco/nicotine user Alcohol intake: never Substance/Drug Use: never Lives independently: Yes Household members: spouse Marital status: Vitals/I&O/Wt Last Vital Signs Temp 97.9 F 03/09/24 05:15 Pulse 93 03/09/24 12:40 Resp 18 03/09/24 12:40 BP 140/79 03/09/24 12:40 Pulse Ox 96 03/09/24 12:40 O2 Del Method Nasal Cannula 03/09/24 12:40 O2 Flow Rate 2 03/09/24 12:40 Weight last 48 hrs Weight 85.275 kg Physical Exam 2 Narrative: General exam demonstrated conversive white male, with at least mild tachypnea. He appears chronically ill. HEENT: Atraumatic and normocephalic. Oropharynx clear Neck is supple no lymphadenopathy thyromegaly Cardiovascular irregular, irregular with a 2/6 systolic murmur Lungs occasional faint expiratory wheeze. Diminished breath sounds at the bases. Abdomen is soft nontender. No obvious organomegaly exam is deferred Extremities 2+ edema bilaterally. Cap refill less than 2 seconds Skin no rash. Quite a bit of sun damage is noted on his arms. Neuro no obvious focal deficits. Data 03/09/24 05:24 03/09/24 05:24 Other Labs: LFTs are normal Troponin 53 with repeat of 50 BNP 2475 Albumin and calcium are normal Chest x-ray by my read demonstrates cardiomegaly, pulmonary congestion, previous bypass surgery. EKG by my read demonstrates A-fib, initial 1 with rapid ventricular rate. Right axis deviation. Right bundle branch block. Echo February 2023 demonstrated an EF of 50 to 55%, hypokinetic RV, mild aortic stenosis. Gradient was 11 at that time. Angiogram November 2021 demonstrated all coronary grafts patent, total occlusion three-vessel coronary disease. Medical management was recommended at that time. A&P Assessment and plan (1) Chest pain: Patient presents with recurrent chest discomfort, responsive to nitroglycerin Currently he reports his chest discomfort free. Nitroglycerin paste has been initiated. From cardiology clinic, it appears they wish to proceed with echocardiogram and perhaps nuclear stress test. I will defer this to the supervisor stave finishing today, by consulting Dr. Bee. Telemetry Serial cardiac enzymes Monitor for any recurrent chest pain Has known underlying coronary disease. Continue Plavix, statin, ranolazine, Imdur. Add metoprolol 12.5 mg twice daily. Potentially could increase ranolazine further. Qualifiers: Chest pain type: precordial pain Qualified Code(s): R07.2 - Precordial pain (2) Atrial fibrillation: Patient appeared to have A-fib with RVR on arrival Monitor on telemetry Continue diltiazem Adjust medication further, should tachyarrhythmia be present. I do not see that he is on any beta-darin currently and this could be entertained. Hold apixaban. Changed to subcutaneous heparin currently in case procedure is warranted. Add metoprolol 12.5 mg twice daily. Qualifiers: Atrial fibrillation type: persistent (not longstanding) Qualified Code(s): I48.19 - Other persistent atrial fibrillation (3) Acute CHF: Patient with acute CHF, most probably diastolic. He has also got some right ventricular dysfunction on his last echocardiogram. Aortic stenosis was only mild at that time. Defer need for echocardiogram to cardiology Initiate Lasix 40 mg IV every 12 hours, closely monitoring creatinine Holding ARB currently secondary to renal dysfunction. (4) Acute kidney injury: Patient with acute kidney injury. Bladder scan currently, check renal ultrasound, check urinalysis Hold renal toxic medication Hold ARB Plan Probable COPD. Long history of smoking. He is wheezing currently although that could also be related to his fluid overload. Budesonide twice daily. DuoNeb every 6 hours scheduled. Multiple other medical problems as outlined by past medical history Full code currently Heparin will suffice for DVT prophylaxis. Attestations 2 Medical Necessity Statement*: Will require greater than 2 midnight stay for evaluation and treatment of acute kidney injury, possibly cardiorenal associated with acute diastolic heart failure with significant edema, dyspnea. Diagnoses Precordial pain R07.2 Chest pain type: precordial pain Persistent atrial fibrillation I48.19 Atrial fibrillation type: persistent (not longstanding) Acute CHF I50.9 Acute kidney injury N17.9 Time Spent (min) 65
--- NOTE | 2024-03-09 13:46 | US_ITS ---
WS: [id number] RENAL ULTRASOUND HISTORY: renal failure COMPARISON: 12/02/2022 TECHNIQUE: 2-D and color Doppler imaging of the kidney submitted. Right kidney: 9.8 cm x 5.9 cm x 4.9 cm. Cortex: 1.6 cm Increased echogenicity throughout the kidney. The increased echogenicity appears more prominent than on the prior study. There is a lobulated complex cyst associated with the RIGHT kidney. This cyst kala sures 5.4 x 4.6 x 5.4 cm. Not significantly changed since the prior exam. There is a thin septation o r 2 adjacent cysts. No solid mass or obstruction. Left kidney: 10.0 cm x 4.9 cm x 6.6 cm. Cortex: 1.6 cm Normal echogenicity with no hydronephrosis or mass. Aorta: Normal. Urinary Bladder: Well-distended. Prevoid volume is 515 mL. Post void volume 390 mL. IMPRESSION: 1. No renal obstruction. 2. Mild progression of chronic medical renal disease in the RIGHT kidney. 3. No change in the mildly complex cystic mass in the RIGHT kidney. 4. Significant post void urinary retention. Suspect bladder outlet obstruction.
[2024-03-09] MEDS: FUROsemide 10 mg/mL SDV 4mL 40 MG IVP (14:23)
[2024-03-09] MEDS: heparin 5,000 unit/mL INJ 1 mL 5000 UNIT SUBCUT (14:24)
--- NOTE | 2024-03-09 15:12 | P.CONIM_ITS ---
Providers/Reason For Consult 2 Consulting Physician/Specialty*: Cardiovascular medicine Reason for Consult*: Shortness of breath, unstable angina, underlying organic heart disease Requesting Physician: Martha Attending Physician: Archie Thomas MD Primary Care Provider: Gwen Sanon NP History of Present Illness History of Present Illness Steven Tee is a 88 year old male with a long history of multilevel vascular disease including coronary artery disease, peripheral disease and abdominal aortic aneurysm. He has a long history of bypass surgery twice in . Generally he is chronically unwell. He apparently has been having what his describes as congestion since October 5 . he has developed a chronic cough at night which keeps him awake. it does not sound like he is having paroxysmal nocturnal dyspnea. he has chronic lower extremity edema which goes down at night and gets worse during the day. several weeks ago he started having chest discomfort daily relieved with nitroglycerin. over the last several weeks it has increased in frequency and in intensity. yesterday took 2 nitroglycerin during the day and then after 4 pm took 4. he came into the emergency room about 4:00 this morning. he states that he is getting weaker and weaker all the time. upon his arrival his creatinine is elevated from december. his creatinine is now 2.3 with a bun of 61. previously it was 2.6 and 46 on 13 january. his chest x-ray did not show any pulmonary vascular redistribution. his troponins are 53, 50 and 55. his bnp is 2475. first ekg at 5:15 in the morning showed atrial fibrillation with a rapid ventricular response, pvcs, right axis deviation, right bundle branch block, left posterior fascicular block and diffuse st and t wave changes. this ekg is exactly the same as the 1 in december with the exception of the fast heart rate. second ekg at 0921 hrs. and on the third at 1114 hrs. were the same though the heart rate was improved. an attempt was made in 2021 to perform angiography of both his legs and his heart. there was largely unsuccessful due to access point problems. apparently the internal mammary was seen by retrograde flow and was thought to be open to the lad. he has a vein graft to the right which was thought to be open and a vein graft to the circumflex. this suggested a 95% lesion at the insertion point of the graft to the [place] artery. obviously it was not intervened on at that time he had an echo a year ago showing an ejection fraction of 55% with biatrial enlargement, right ventricular enlargement and mild aortic stenosis. he saw the nurse practitioner in our office yesterday. she thought that he may be fluid overloaded and suggested an echo. that has not been done. his other history is complex and includes sleep apnea, peripheral arterial disease post femoral-femoral bypass, restless leg syndrome, prostatic hypertrophy, dyslipidemia, coronary disease with bypass surgery twice, varicose veins, carotid disease post endarterectomy, aaa post endograft repair, chronic kidney disease, diastolic heart failure, continued tobacco abuse, copd, atrial fibrillation and aortic stenosis. he is sitting on the side of the bed and is able to carry on a conversation. he is awake alert and oriented. he is not complaining of any chest pain and states that he has not had any pain since he has been here. he is on a statin, plavix, diltiazem, long-acting nitrate, ranexa, iv lasix, metoprolol and heparin subcutaneously. Review of Systems 2 Narrative: Review of systems is positive in multiple distributions. Medications/Allergies Home Medications Medication Instructions Recorded Confirmed Last Taken Type apixaban 5 mg tablet (Eliquis) 5 mg PO BID 04/16/20 03/09/24 03/08/24 History atorvastatin 40 mg tablet 40 mg PO QPM 04/16/20 03/09/24 03/08/24 History diltiazem HCl 180 mg 180 mg PO DAILY 04/16/20 03/09/24 03/08/24 History capsule,extended release 24 hr (Cartia XT) finasteride 5 mg tablet 5 mg PO DAILY 04/16/20 03/09/24 03/08/24 History losartan 25 mg tablet 25 mg PO DAILY 04/16/20 03/09/24 03/08/24 History multivitamin 1 tab PO DAILY 04/16/20 03/09/24 03/08/24 History nitroglycerin 0.4 mg sublingual 0.4 mg sublingual Q5M PRN chest 02/11/21 03/09/24 03/09/24 Rx tablet (Nitrostat) pain #25 tabs omega-3 fatty acids 500 mg capsule 500 mg PO DAILY 09/04/22 03/09/24 03/08/24 History furosemide 40 mg tablet 40 mg PO DAILY #90 tabs 11/13/22 03/09/24 03/08/24 Rx carbidopa 25 mg-levodopa 100 mg 0.5 ea PO TID PRN Restless Leg 06/18/23 03/09/24 01/12/24 Rx tablet Syndrome #30 tabs ropinirole 2 mg tablet 2 mg PO QPM 09/08/23 03/09/24 03/08/24 History clopidogrel 75 mg tablet 75 mg PO DAILY #90 tabs 09/09/23 03/09/24 03/08/24 Rx isosorbide mononitrate 30 mg 30 mg PO BID #180 tabs 10/22/23 03/09/24 03/09/24 Rx tablet,extended release 24 hr ranolazine 500 mg tablet,extended 500 mg PO BID #180 tabs 11/23/23 03/09/24 03/09/24 Rx release,12 hr potassium chloride 20 mEq See Rx Instructions .Route 01/15/24 03/09/24 03/08/24 Rx tablet,extended release .COMPLEX #90 tabs albuterol sulfate 90 mcg/actuation 2 inh inhalation Q4H PRN Shortness 03/09/24 03/09/24 Unknown History aerosol inhaler Of Breath doxycycline hyclate 100 mg capsule 100 mg PO DAILY 03/09/24 03/09/24 03/08/24 History prednisone 10 mg tablet See Rx Instructions .Route .COMPLEX 03/09/24 03/09/24 03/08/24 History Allergies Allergy/AdvReac Type Severity Reaction Status Date / Time No Known Allergies Allergy Verified 03/09/24 05:19 Current Medications Generic Name Dose Route Start Last Admin Trade Name Freq PRN Reason Stop Dose Admin Furosemide 40 mg 03/09/24 13:46 03/09/24 14:23 Furosemide 10 Mg/Ml Sdv 4ml IVP 40 mg Q12H AMANDA Administration Heparin Sodium (Porcine) 5,000 unit 03/09/24 14:00 03/09/24 14:24 Heparin 5,000 Unit/Ml Inj 1 Ml SUBCUT 5,000 unit Q12H AMANDA Administration PFSH Acute 2 PFSH: Medical History (Updated 03/09/24 @ 15:22 by Jeremy Bee MD) Aortic stenosis Tobacco abuse Peripheral arterial disease SHARON (obstructive sleep apnea) History of sleep study (01/2021) severe obstructive sleep apnea, optimal pressure setting 6cm, with recommendation for auto-titrating CPAP 5-9 cm Sleep apnea Atherosclerosis of leg with intermittent claudication RLS (restless legs syndrome) History of cardioversion 03/16/2019 BPH (benign prostatic hyperplasia) Hyperlipidemia CAD (coronary artery disease) Unstable angina HTN (hypertension), benign Varicose veins of bilateral lower extremities with other complications Atrial fibrillation Diastolic CHF CKD (chronic kidney disease) Surgical History (Updated 03/09/24 @ 15:22 by Jeremy Bee MD) S/P coronary angiogram 04/29/2007 S/P carotid endarterectomy S/P AAA (abdominal aortic aneurysm) repair with [place] endograft S/P femoral-femoral bypass surgery S/P CABG (coronary artery bypass graft) 1988 X1, 2006 X2 Family History Brother Cancer CAD (coronary artery disease) Diabetes Mother Heart disease CAD (coronary artery disease) Diabetes Sister CAD (coronary artery disease) Denies family history of Clotting disorder Dementia Chronic kidney disease (CKD) Suicide Anesthesia complication Bleeding disorder Lung disease Stroke Social History Smoking and tobacco/nicotine status: current every day tobacco/nicotine user Alcohol intake: never Substance/Drug Use: never Lives independently: Yes Household members: spouse Marital status: Vitals/I&O/Wt Last Vital Signs Temp 97.9 F 03/09/24 05:15 Pulse 93 03/09/24 12:40 Resp 18 03/09/24 12:40 BP 140/79 03/09/24 12:40 Pulse Ox 96 03/09/24 12:40 O2 Del Method Nasal Cannula 03/09/24 12:40 O2 Flow Rate 2 03/09/24 12:40 Weight last 48 hrs Weight 188 lb Physical Exam 2 Narrative: GENERAL: In general he is comfortable sitting upright in bed. HEENT: Exam within normal limits. NECK: Supple without jugular vein distention. The carotid upstroke is normal without bruits. BACK: Exam normal. LUNGS: Clear. Occasional wheezes. There is a productive cough HEART: Irregular rate and rhythm ABDOMEN: Benign without organomegaly or tenderness. EXTREMITIES: 3-4+ edema lower extremities NEUROLOGIC: Exam normal. SKIN: Unremarkable. His arms from his fingers to his shoulders are full of ecchymoses Data 03/09/24 05:24 03/09/24 05:24 A&P Assessment and plan (1) Diastolic CHF: Qualifiers: Heart failure chronicity: chronic Qualified Code(s): I50.32 - Chronic diastolic (congestive) heart failure (2) Atrial fibrillation: Qualifiers: Atrial fibrillation type: persistent (not longstanding) Qualified Code(s): I48.19 - Other persistent atrial fibrillation (3) Varicose veins of bilateral lower extremities with other complications: (4) HTN (hypertension), benign: (5) CAD (coronary artery disease): Qualifiers: Associated angina: with unstable angina Coronary Disease-Associated Artery/Lesion type: bypass graft [place] vs. transplanted heart: [place] heart Qualified Code(s): I25.700 - Atherosclerosis of coronary artery bypass graft(s), unspecified, with unstable angina pectoris (6) Chest pain: Qualifiers: Chest pain type: precordial pain Qualified Code(s): R07.2 - Precordial pain (7) Atherosclerosis of leg with intermittent claudication: (8) Acute CHF: (9) CKD (chronic kidney disease): Qualifiers: Chronic kidney disease stage: stage 3 (moderate) Chronic kidney disease stage 3 subtype: stage 3a (GFR 45-59) Qualified Code(s): N18.31 - Chronic kidney disease, stage 3a (10) Acute kidney injury: (11) RLS (restless legs syndrome): (12) Unstable angina: (13) S/P carotid endarterectomy: (14) S/P AAA (abdominal aortic aneurysm) repair: (15) S/P femoral-femoral bypass surgery: (16) S/P CABG (coronary artery bypass graft): (17) Peripheral arterial disease: (18) Tobacco abuse: (19) Aortic stenosis: Plan He presents a difficult problem. Obviously angiography is not indicated at this time given the increase in the BUN and creatinine. I do not know that it will ever be because it may not be possible because of access point difficulties. Stress testing will not help us in the treatment. I think we should try to diurese him some and hopefully not worsen his kidney function. We should then be aggressive with antianginal medications to try to relieve his angina. If these are unsuccessful then echo might be useful to guide therapy but we will wait a day or so. I explained this in detail to the patient and his . He presented very difficult situation with not much in the way of options. Consult Attestations 2 Medical Necessity Statement: Hospitalization for management of multiple acute and chronic medical problems and High Time for a total of 55 minutes, includes reviewing past or interval history, examining/interviewing patient, placing orders, counseling patient/family/other support, updating patient/family/other support, discussing plan of care with staff, communicating with other healthcare providers and documenting encounter Diagnoses Chronic diastolic congestive heart failure I50.32 Heart failure chronicity: chronic Persistent atrial fibrillation I48.19 Atrial fibrillation type: persistent (not longstanding) Varicose veins of bilateral lower extremities with other complications I83.893 HTN (hypertension), benign I10 Coronary artery disease involving coronary bypass graft of [place] heart with unstable angina pectoris I25.700 Associated angina: with unstable angina Coronary Disease-Associated Artery/Lesion type: bypass graft [place] vs. transplanted heart: [place] heart Precordial pain R07.2 Chest pain type: precordial pain Atherosclerosis of leg with intermittent claudication I70.219 Acute CHF I50.9 Stage 3a chronic kidney disease N18.31 Chronic kidney disease stage: stage 3 (moderate) Chronic kidney disease stage 3 subtype: stage 3a (GFR 45-59) Acute kidney injury N17.9 RLS (restless legs syndrome) G25.81 Unstable angina I20.0 S/P carotid endarterectomy Z98.890 S/P AAA (abdominal aortic aneurysm) repair Z98.890; Z86.79 S/P femoral-femoral bypass surgery Z95.828 S/P CABG (coronary artery bypass graft) Z95.1 Peripheral arterial disease I73.9 Tobacco abuse Z72.0 Aortic stenosis I35.0
[2024-03-09 15:59] LABS: Bilirubin Urine Neg (Negative); Blood Urine Neg (Negative); Glucose Urine UA Norm (Normal); Ketones Urine Negative (Negative); Leukocyte Esterase Urine Trace (Negative); Nitrate Urine Negative (Negative); Protein Urine Neg (Negative); Specific Gravity, Urine 1.015 (1.005-1.030); Urine Appearance Clear (CLEAR); Urine Color Yellow (Yellow); Urobilinogen Urine Norm (Negative); pH Urine 6 (5-7)
[2024-03-09 16:01] LABS: Mucus Urine TRACE /hpf; RBC Urine 0-4 /hpf (0-2); WBC Urine 0-4 /hpf (0-5)
[2024-03-09 16:02] LABS: Add Urine Culture? No; Hyaline Casts Urine 0-4 /lpf
--- NOTE | 2024-03-09 17:12 | ECG_ITS ---
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 Measurements Intervals [place] Rate: 103 P: 0 MD: 0 QRS: 119 QRSD: 142 T: -52 QT: 388 QTc: 510 Interpretive Statements ATRIAL FIBRILLATION WITH RAPID VENTRICULAR RESPONSE RIGHT BUNDLE BRANCH BLOCK [120+ ms QRS DURATION, UPRIGHT V1, 40+ ms S IN I/aVL/V4/V5/V6] LEFT POSTERIOR FASCICULAR BLOCK [QRS AXIS > 109, INFERIOR Q] ST DEVIATION AND MODERATE T-WAVE ABNORMALITY, CONSIDER LATERAL ISCHEMIA [-0.1+ mV T-WAVE IN I/aVL/V5/V6] ST DEVIATION AND MODERATE T-WAVE ABNORMALITY, CONSIDER INFERIOR ISCHEMIA [-0.1+ mV T-WAVE IN II/aVF] Compared to ECG 03/09/2024 11:14:24 Left posterior fascicular block now present Right-axis deviation no longer present T-wave abnormality still present Possible ischemia still present Electronically Signed On 03-09-2024 18:57:52 CDT by José Luis Becker M.D. [id number]
[2024-03-09] MEDS: ropinirole 2 mg Tablet PO (17:25)
[2024-03-09] MEDS: metoprolol tartrate 25 mg Tablet 12.5 MG PO (17:25)
[2024-03-09] MEDS: atorvastatin 40 mg Tablet PO (17:26)
[2024-03-09] MEDS: ranolazine (12HR) 500 mg Tablet PO (17:27)
[2024-03-09] MEDS: isosorbide mononitrate ER 30 mg Tablet PO (17:27)
--- NOTE | 2024-03-09 17:51 | PC.NURSE ---
pt notified staff at 1710,that he was having chest pain.substernal.rating 510.bp 157/95.no sob or diaphoresis.ekg obtained.dr jaramillo notified and ekg sent to him.he ordered ntg sl 0.4 mg. by the time nurse brought ntg to bedside...cp had subsided.did give scheduled ranexa and imdur as ordered.instructed pt to notify staff for any further cp episodes
[2024-03-09] MEDS: budesonide 0.5 mg/2 mL Neb INHALATION (20:05)
[2024-03-09] MEDS: ipratropium-albuterol 3 mL Neb INHALATION (20:06)
[2024-03-10] VITALS (11 sets, daily range): BP systolic 103–142; BP diastolic 61–93; PULSE 71–97; RESP 16–27; TEMP 36.5–37.2; O2SAT 93–98
[2024-03-10] MEDS: carbidopa-levodopa 25-100mg Tablet 0.5 EACH PO ×3 (00:35→22:12)
[2024-03-10] MEDS: FUROsemide 10 mg/mL SDV 4mL 40 MG IVP ×2 (01:33→13:46)
--- NOTE | 2024-03-10 02:39 | PC.NURSE ---
Patient has violeta red blood in [place] catheter with small clots. patient also has 5000 heparin scheduled for 0200. Dr Riggs notified, no orders received.
[2024-03-10 02:57] LABS: Basophils # 0.1 10^3/uL (0.0-0.1); Basophils % 0.5 %; Eosinophils # 0.2 10^3/uL (0.0-0.8); Eosinophils % 1.9 %; Hematocrit 45.4 % (37-53); Lymphocytes # 0.7 10^3/uL (0.8-4.8); Lymphocytes % 6.7 %; Mean Corpuscular Hemoglobin 35.4 pg (27-33); Mean Corpuscular Volume 107.1 fl (82-101); Mean Platelet Volume 9.4 fL (7.4-10.4); Monocytes # 1.2 10^3/uL (0.2-0.9); Neutrophils # 8.42 10^3/uL (1.8-7.7); Neutrophils % 76.1 %; Nucleated Red Blood Cells % 0 %; Platelet Count 164 10^3/cmm (157-399); Red Blood Count 4.24 10^6/uL (3.85-5.65); Red Cell Distribution Width 14.8 % (12.1-15.1); White Blood Count 11.07 10^3/uL (3.29-11.43)
[2024-03-10 03:18] LABS: Alanine Aminotransferase 7 U/L (0-41); Albumin Level 3.9 g/dL (3.5-5.2); Alkaline Phosphatase 100 U/L (40-130); Anion Gap 13.5 (5-19); Aspartate Amino Transferase 30 U/L (0-40); Blood Urea Nitrogen 49 mg/dL (8-23); Calcium 9.1 mg/dL (8.5-10.5); Carbon Dioxide 30 mmol/L (22-29); Chloride 103 mmol/L (98-107); Creatinine Clr Calc Pharmacy 34.3221; Globulin 2.6 g/dL (1.3-4.6); Glucose 102 mg/dL (65-115); Magnesium 2.3 mg/dL (1.7-2.3); Osmolality Calculated 307 mOsm/kg (285-295); Potassium 4.5 mmol/L (3.5-5.1); Sodium 142 mmol/L (136-145); Total Bilirubin 1.1 mg/dL (0.15-1.2); Total Protein 6.5 g/dL (6.6-8.7)
--- NOTE | 2024-03-10 04:02 | PC.NURSE ---
Dr Riggs notified by phone and gave order to hold 0200 heparin dose.
--- NOTE | 2024-03-10 07:19 | PM.PN ---
Subjective Subjective: Squires catheter was placed last evening. He had 1 episode of chest pain while the Squires was going in. It was relieved with nitroglycerin. Otherwise has had no further pain. He has had a nice diuresis. The edema in his legs is less. His shortness of breath is improved. He did not cough overnight. His creatinine is down to 1.7 with a BUN of 49. He says that he feels better overall. 3100 mL of urine output with only 1060 mL in. Vitals/I&O/Wt Last Vital Signs Temp 97.7 F 03/10/24 04:00 Pulse 93 03/10/24 04:00 Resp 22 H 03/10/24 04:00 BP 106/75 03/10/24 04:00 Pulse Ox 94 03/10/24 04:00 O2 Del Method Room Air 03/10/24 04:00 O2 Flow Rate 2 03/09/24 12:40 03/09/24 03/10/24 03/10/24 22:59 06:59 14:59 Intake Total 360 / 360 700 / 1060 Output Total 2200 / 2200 900 / 3100 Balance -1840 / -1840 -200 / -2040 Weight last 48 hrs Weight 185 lb 4.8 oz Weight 187 lb 6 oz Weight 188 lb Physical Exam Narrative: GENERAL: In general he looks and feels well HEENT: Exam within normal limits. NECK: Supple without jugular vein distention. The carotid upstroke is normal without bruits. BACK: Exam normal. LUNGS: Some scattered wheezes HEART: Irregular rate and rhythm. ABDOMEN: Benign without organomegaly or tenderness. EXTREMITIES: 1+ edema NEUROLOGIC: Exam normal. SKIN: Unremarkable. Urinary Catheter Management: Squires: Cath Placed During This Visit: yes Reason for Continuing Indwelling Catheter: Acute Urinary Retention or Obstruction Urinary Catheter Date of Insertion: 03/09/24 Urinary Catheter Time of Insertion: 15:00 Data 03/10/24 02:09 03/10/24 02:09 A&P Assessment and plan (1) S/P CABG (coronary artery bypass graft): (2) S/P femoral-femoral bypass surgery: (3) S/P AAA (abdominal aortic aneurysm) repair: (4) S/P carotid endarterectomy: (5) Diastolic CHF: Qualifiers: Heart failure chronicity: chronic Qualified Code(s): I50.32 - Chronic diastolic (congestive) heart failure (6) Atrial fibrillation: Qualifiers: Atrial fibrillation type: persistent (not longstanding) Qualified Code(s): I48.19 - Other persistent atrial fibrillation (7) Varicose veins of bilateral lower extremities with other complications: (8) HTN (hypertension), benign: (9) Unstable angina: (10) CAD (coronary artery disease): Qualifiers: Associated angina: with unstable angina Coronary Disease-Associated Artery/Lesion type: bypass graft [place] vs. transplanted heart: [place] heart Qualified Code(s): I25.700 - Atherosclerosis of coronary artery bypass graft(s), unspecified, with unstable angina pectoris (11) Atherosclerosis of leg with intermittent claudication: (12) Acute CHF: (13) Peripheral arterial disease: (14) Tobacco abuse: (15) Aortic stenosis: (16) CKD (chronic kidney disease): Qualifiers: Chronic kidney disease stage: stage 3 (moderate) Chronic kidney disease stage 3 subtype: stage 3a (GFR 45-59) Qualified Code(s): N18.31 - Chronic kidney disease, stage 3a (17) Acute kidney injury: (18) RLS (restless legs syndrome): Plan He has had a nice diuresis. I would continue the intravenous diuresis for today. Hopefully tomorrow we can get the Squires out, switch him to p.o. meds and then get him ready to go home. I am still of the opinion that neither coronary angiography nor stress testing is necessary. Since he is improved I do not think an echo is necessary at this time. I am going to increase his metoprolol to 25 mg twice daily. I will leave the diltiazem dose the same, the long-acting nitrate the same and then Ranexa and the same for now. Attestations Medical Necessity Statement*: Hospitalization for management of congestive heart failure and unstable angina. and Moderate Time for a total of 35 minutes, includes reviewing past or interval history, examining/interviewing patient, placing orders, counseling patient/family/other support, updating patient/family/other support, discussing plan of care with staff, communicating with other healthcare providers and documenting encounter Diagnoses S/P CABG (coronary artery bypass graft) Z95.1 S/P femoral-femoral bypass surgery Z95.828 S/P AAA (abdominal aortic aneurysm) repair Z98.890; Z86.79 S/P carotid endarterectomy Z98.890 Chronic diastolic congestive heart failure I50.32 Heart failure chronicity: chronic Persistent atrial fibrillation I48.19 Atrial fibrillation type: persistent (not longstanding) Varicose veins of bilateral lower extremities with other complications I83.893 HTN (hypertension), benign I10 Unstable angina I20.0 Coronary artery disease involving coronary bypass graft of [place] heart with unstable angina pectoris I25.700 Associated angina: with unstable angina Coronary Disease-Associated Artery/Lesion type: bypass graft [place] vs. transplanted heart: [place] heart Atherosclerosis of leg with intermittent claudication I70.219 Acute CHF I50.9 Peripheral arterial disease I73.9 Tobacco abuse Z72.0 Aortic stenosis I35.0 Stage 3a chronic kidney disease N18.31 Chronic kidney disease stage: stage 3 (moderate) Chronic kidney disease stage 3 subtype: stage 3a (GFR 45-59) Acute kidney injury N17.9 RLS (restless legs syndrome) G25.81
--- NOTE | 2024-03-10 09:06 | P.PN_ITS ---
Documented by User: DORI Christopher STDSHARITA 03/10/24 09:34 Subjective 2 Subjective: Patient is sitting up on the side of the bed visiting with family, reports overall feeling significantly better than when he first arrived to the hospital but reports some slight discomfort in his chest this morning. Denies shortness of breath but is coughing up some clear sputum. Medications: Reviewed: Yes Vitals/I&O/Wt Last Vital Signs Temp 98.0 F 03/10/24 07:53 Pulse 94 03/10/24 07:53 Resp 27 H 03/10/24 07:53 BP 132/93 03/10/24 07:53 Pulse Ox 96 03/10/24 07:53 O2 Del Method Room Air 03/10/24 07:53 O2 Flow Rate 2 03/09/24 12:40 03/09/24 03/10/24 03/10/24 22:59 06:59 14:59 Intake Total 360 / 360 700 / 1060 Output Total 2200 / 2200 900 / 3100 Balance -1840 / -1840 -200 / -2040 Weight last 48 hrs Weight 185 lb 4.8 oz Weight 187 lb 6 oz Weight 188 lb Physical Exam 2 Narrative: General exam demonstrated conversive white male in no distress. Neck is supple no lymphadenopathy thyromegaly Cardiovascular irregular, irregular with a 2/6 systolic murmur Lungs diminished breath sounds at the bases. Abdomen is soft non-tender. No obvious organomegaly Extremities 1+ edema bilaterally. Cap refill less than 2 seconds Skin no rash. Quite a bit of sun damage is noted on his arms. Urinary Catheter Management: Squires: Cath Placed During This Visit: yes Reason for Continuing Indwelling Catheter: Acute Urinary Retention or Obstruction Urinary Catheter Date of Insertion: 03/09/24 Urinary Catheter Time of Insertion: 15:00 Data 03/10/24 02:09 03/10/24 02:09 A&P Assessment and plan (1) Chest pain: Patient presents with recurrent chest discomfort, was responsive to nitroglycerin. He reports slight chest discomfort this morning as well. From cardiology clinic, it appears they wish to proceed with echocardiogram and perhaps nuclear stress test. [employer] consulted. Telemetry Serial cardiac enzymes Monitor for any recurrent chest pain Has known underlying coronary disease. Continue Plavix, statin, ranolazine, Imdur. Continue metoprolol 12.5 mg twice daily. Potentially could increase ranolazine further. Qualifiers: Chest pain type: precordial pain Qualified Code(s): R07.2 - Precordial pain (2) Atrial fibrillation: Patient appeared to have A-fib with RVR on arrival Monitor on telemetry Continue diltiazem Adjust medication further, should tachyarrhythmia be present. I do not see that he is on any beta-darin currently and this could be entertained. Hold apixaban. Changed to subcutaneous heparin currently in case procedure is warranted. Continue metoprolol 12.5 mg twice daily. Qualifiers: Atrial fibrillation type: persistent (not longstanding) Qualified Code(s): I48.19 - Other persistent atrial fibrillation (3) Acute CHF: Patient with acute CHF, most probably diastolic. He has also got some right ventricular dysfunction on his last echocardiogram. Aortic stenosis was only mild at that time. Consulted cardiology Continue Lasix 40 mg IV every 12 hours. Holding ARB currently secondary to renal dysfunction. (4) Acute kidney injury: Patient with acute kidney injury. Squires Catheter placed. Renal ultrasound 03/10/24 demonstrated mild progression of chronic medical disease in the right kidney as well as no change to the complex cystic mass located in the same right kidney. Significant post void urinary retention as well as suspected bladder outlet obstruction noted. Hold renal toxic medication Hold ARB Plan Probable COPD. Long history of smoking. He was wheezing on admission although that could also be related to his fluid overload. Budesonide twice daily. DuoNeb every 6 hours scheduled. Multiple other medical problems as outlined by past medical history Full code currently Heparin will suffice for DVT prophylaxis. Coding Level of Care Code 03158 Diagnoses Precordial pain R07.2 Chest pain type: precordial pain Persistent atrial fibrillation I48.19 Atrial fibrillation type: persistent (not longstanding) Acute CHF I50.9 Acute kidney injury N17.9 Time Spent (min) 23 Documented by User: Archie Thomas MD 03/10/24 09:40 Subjective 2 Subjective: Patient is sitting up on the side of the bed visiting with family, reports overall feeling significantly better than when he first arrived to the hospital but reports some slight discomfort in his chest this morning. Denies shortness of breath but is coughing up some clear sputum. Reports she is wheezing a lot last. Physical Exam 2 Narrative: General exam demonstrated conversive white male in no distress. Neck is supple no lymphadenopathy thyromegaly Cardiovascular irregular, irregular with a 2/6 systolic murmur Lungs diminished breath sounds at the bases. Slight wheezes still noted on the right side. Abdomen is soft non-tender. No obvious organomegaly Extremities 1+ edema bilaterally. Cap refill less than 2 seconds Skin no rash. Quite a bit of sun damage is noted on his arms. Urinary Catheter Management: Squires: Cath Placed During This Visit: yes Data 03/10/24 02:09 03/10/24 02:09 A&P Assessment and plan (1) Chest pain: Patient presents with recurrent chest discomfort, was responsive to nitroglycerin. He reports slight chest discomfort this morning as well. Cardiology consult appreciated. Nuclear stress test not recommended currently. Holding off on echocardiogram. Continue telemetry Serial cardiac enzymes reviewed Monitor for any recurrent chest pain Has known underlying coronary disease. Continue Plavix, statin, ranolazine, Imdur. Metoprolol increased by cardiology to 25 mg twice daily. Qualifiers: Chest pain type: precordial pain Qualified Code(s): R07.2 - Precordial pain (2) Atrial fibrillation: Patient appeared to have A-fib with RVR on arrival. Heart rate currently under control. Monitor on telemetry Continue diltiazem Beta-darin added, then increased. Hold apixaban. Changed to subcutaneous heparin currently in case procedure is warranted. Qualifiers: Atrial fibrillation type: persistent (not longstanding) Qualified Code(s): I48.19 - Other persistent atrial fibrillation (3) Acute CHF: Patient with acute CHF, most probably diastolic. He has also got some right ventricular dysfunction on his last echocardiogram. Aortic stenosis was only mild at that time. Consulted cardiology Continue Lasix 40 mg IV every 12 hours. Holding ARB currently secondary to renal dysfunction. Overall he is improving significantly with 2 L diuresis (4) Acute kidney injury: Patient with acute kidney injury. Squires Catheter placed secondary to urinary retention Renal ultrasound 03/10/24 demonstrated mild progression of chronic medical disease in the right kidney as well as no change to the complex cystic mass located in the same right kidney. Significant post void urinary retention as well as suspected bladder outlet obstruction noted. Hold renal toxic medication Hold ARB Add Flomax Likely discharge with catheter, and urology follow-up as residual urine when catheter was placed was over 500 cc. Attestations 2 Medical Necessity Statement*: Needs continued hospitalization for IV diuresis secondary to acute congestive heart failure Diagnoses Precordial pain R07.2 Chest pain type: precordial pain Persistent atrial fibrillation I48.19 Atrial fibrillation type: persistent (not longstanding) Acute CHF I50.9 Acute kidney injury N17.9 Time Spent (min) 23
[2024-03-10] MEDS: finasteride 5 mg Tablet PO (09:11)
[2024-03-10] MEDS: ranolazine (12HR) 500 mg Tablet PO ×2 (09:11→18:10)
[2024-03-10] MEDS: isosorbide mononitrate ER 30 mg Tablet PO ×2 (09:11→18:10)
[2024-03-10] MEDS: clopidogrel 75 mg Tablet PO (09:11)
[2024-03-10] MEDS: metoprolol tartrate 25 mg Tablet PO ×2 (09:11→18:10)
[2024-03-10] MEDS: dilTIAZem ER (24HR) 180 mg Capsule PO (09:11)
[2024-03-10] MEDS: tamsulosin 0.4 mg Capsule 0.400000000000000022 MG PO (09:11)
[2024-03-10] MEDS: heparin 5,000 unit/mL INJ 1 mL 5000 UNIT SUBCUT (13:46)
[2024-03-10] MEDS: ropinirole 2 mg Tablet PO (18:10)
[2024-03-10] MEDS: atorvastatin 40 mg Tablet PO (18:10)
[2024-03-11] VITALS (12 sets, daily range): BP systolic 95–134; BP diastolic 58–75; PULSE 66–105; RESP 16–21; TEMP 36.5–37; O2SAT 90–98
[2024-03-11] MEDS: heparin 5,000 unit/mL INJ 1 mL 5000 UNIT SUBCUT (02:28)
[2024-03-11] MEDS: FUROsemide 10 mg/mL SDV 4mL 40 MG IVP (02:28)
[2024-03-11 04:20] LABS: Basophils # 0.1 10^3/uL (0.0-0.1); Basophils % 0.5 %; Eosinophils # 0.2 10^3/uL (0.0-0.8); Eosinophils % 1.8 %; Hematocrit 44.1 % (37-53); Lymphocytes # 0.9 10^3/uL (0.8-4.8); Lymphocytes % 9.1 %; Mean Corpuscular HGB Conc 32.2 g/dL (30-55); Mean Corpuscular Hemoglobin 35.1 pg (27-33); Mean Corpuscular Volume 109.2 fl (82-101); Mean Platelet Volume 9.5 fL (7.4-10.4); Monocytes # 1.4 10^3/uL (0.2-0.9); Monocytes % 14.8 %; Neutrophils # 6.62 10^3/uL (1.8-7.7); Neutrophils % 70.1 %; Nucleated Red Blood Cells % 0 %; Platelet Count 143 10^3/cmm (157-399); Red Blood Count 4.04 10^6/uL (3.85-5.65); Red Cell Distribution Width 14.6 % (12.1-15.1); White Blood Count 9.45 10^3/uL (3.29-11.43)
[2024-03-11 04:42] LABS: Blood Urea Nitrogen 44 mg/dL (8-23); Calcium 8.6 mg/dL (8.5-10.5); Carbon Dioxide 30 mmol/L (22-29); Chloride 98 mmol/L (98-107); Creatinine Clr Calc Pharmacy 36.2908; Glucose 83 mg/dL (65-115); Magnesium 2.2 mg/dL (1.7-2.3); Osmolality Calculated 292 mOsm/kg (285-295); Sodium 136 mmol/L (136-145)
[2024-03-11 04:44] LABS: Anion Gap 12.5 (5-19); Potassium 4.5 mmol/L (3.5-5.1)
--- NOTE | 2024-03-11 07:11 | P.PN_ITS ---
Subjective 2 Subjective: Steven has had an uneventful night. He has had no further chest pain. He still has a Squires catheter in place. His creatinine has stabilized at 1.6. This is essentially his baseline. No other new issues. The edema is stable. It is significantly improved from the time of admission. He does not have a cough. He is not short of breath. Heart rates have been running in the 80s and 90s. Blood pressure stable. Urine output 2950 mL. He remains on IV Lasix. Vitals/I&O/Wt Last Vital Signs Temp 97.8 F 03/11/24 04:00 Pulse 105 H 03/11/24 06:00 Resp 21 H 03/11/24 04:00 BP 126/71 03/11/24 04:00 Pulse Ox 94 03/11/24 04:00 O2 Del Method Room Air 03/11/24 04:00 O2 Flow Rate 2 03/09/24 12:40 03/10/24 03/11/24 03/11/24 22:59 06:59 14:59 Intake Total 1020 / 1740 480 / 2220 Output Total 1200 / 2400 550 / 2950 Balance -180 / -660 -70 / -730 Weight last 48 hrs Weight 183 lb 12.8 oz Weight 185 lb 4.8 oz Weight 187 lb 6 oz Physical Exam 2 Narrative: GENERAL: In general he looks and feels well HEENT: Exam within normal limits. NECK: Supple without jugular vein distention. The carotid upstroke is normal without bruits. BACK: Exam normal. LUNGS: Clear. HEART: Irregular rate and rhythm. ABDOMEN: Benign without organomegaly or tenderness. EXTREMITIES: 1+ edema. NEUROLOGIC: Exam normal. SKIN: Multiple ecchymoses and bleeding into the skin of the upper extremities Urinary Catheter Management: Squires: Cath Placed During This Visit: yes Reason for Continuing Indwelling Catheter: Acute Urinary Retention or Obstruction Urinary Catheter Date of Insertion: 03/09/24 Urinary Catheter Time of Insertion: 15:00 Data 03/11/24 03:48 03/11/24 03:48 A&P Assessment and plan (1) S/P CABG (coronary artery bypass graft): (2) S/P femoral-femoral bypass surgery: (3) S/P AAA (abdominal aortic aneurysm) repair: (4) S/P carotid endarterectomy: (5) Diastolic CHF: Qualifiers: Heart failure chronicity: chronic Qualified Code(s): I50.32 - Chronic diastolic (congestive) heart failure (6) Atrial fibrillation: Qualifiers: Atrial fibrillation type: persistent (not longstanding) Qualified Code(s): I48.19 - Other persistent atrial fibrillation (7) Varicose veins of bilateral lower extremities with other complications: (8) HTN (hypertension), benign: (9) Unstable angina: (10) CAD (coronary artery disease): Qualifiers: Associated angina: with unstable angina Coronary Disease-Associated Artery/Lesion type: bypass graft [place] vs. transplanted heart: [place] heart Qualified Code(s): I25.700 - Atherosclerosis of coronary artery bypass graft(s), unspecified, with unstable angina pectoris (11) Atherosclerosis of leg with intermittent claudication: (12) Acute CHF: (13) Peripheral arterial disease: (14) Tobacco abuse: (15) Aortic stenosis: (16) CKD (chronic kidney disease): Qualifiers: Chronic kidney disease stage: stage 3 (moderate) Chronic kidney disease stage 3 subtype: stage 3a (GFR 45-59) Qualified Code(s): N18.31 - Chronic kidney disease, stage 3a Plan I would hope to switch him over to p.o. Lasix today. I think the other medications are appropriate and the dose is correct. We would have room to move on the beta-darin and the ranolazine and even the isosorbide to some degree if he had the recurrence of angina. I would hope to get him up and around today. Plan is still for medical therapy in the short and long-term. Attestations 2 Medical Necessity Statement*: Hospitalization required for management of acute heart failure, coronary disease, edema and renal insufficiency. and Moderate Time for a total of 35 minutes, includes reviewing past or interval history, examining/interviewing patient, placing orders, counseling patient/family/other support, updating patient/family/other support, discussing plan of care with staff, communicating with other healthcare providers, documenting encounter and coordinating care Diagnoses S/P CABG (coronary artery bypass graft) Z95.1 S/P femoral-femoral bypass surgery Z95.828 S/P AAA (abdominal aortic aneurysm) repair Z98.890; Z86.79 S/P carotid endarterectomy Z98.890 Chronic diastolic congestive heart failure I50.32 Heart failure chronicity: chronic Persistent atrial fibrillation I48.19 Atrial fibrillation type: persistent (not longstanding) Varicose veins of bilateral lower extremities with other complications I83.893 HTN (hypertension), benign I10 Unstable angina I20.0 Coronary artery disease involving coronary bypass graft of [place] heart with unstable angina pectoris I25.700 Associated angina: with unstable angina Coronary Disease-Associated Artery/Lesion type: bypass graft [place] vs. transplanted heart: [place] heart Atherosclerosis of leg with intermittent claudication I70.219 Acute CHF I50.9 Peripheral arterial disease I73.9 Tobacco abuse Z72.0 Aortic stenosis I35.0 Stage 3a chronic kidney disease N18.31 Chronic kidney disease stage: stage 3 (moderate) Chronic kidney disease stage 3 subtype: stage 3a (GFR 45-59)
--- NOTE | 2024-03-11 08:27 | P.PN_ITS ---
Documented by User: DORI Holly STDNT 03/11/24 09:01 Subjective 2 Subjective: Mr. Tee looks much improved today, he reports he feels much improved today. No difficulty breathing, chest pain or chest palpitations. He reports the swelling in his leg is greater than his baseline, but he does have baseline swelling. He reports no other concerns today, eating and drinking well, sleeping well. Medications: Reviewed: Yes Vitals/I&O/Wt Last Vital Signs Temp 97.8 F 03/11/24 07:44 Pulse 80 03/11/24 07:48 Resp 16 03/11/24 07:48 BP 122/69 03/11/24 07:44 Pulse Ox 96 03/11/24 07:48 O2 Del Method Room Air 03/11/24 07:48 O2 Flow Rate 2 03/09/24 12:40 03/10/24 03/11/24 03/11/24 22:59 06:59 14:59 Intake Total 1020 / 1740 480 / 2220 Output Total 1200 / 2400 550 / 2950 Balance -180 / -660 -70 / -730 Weight last 48 hrs Weight 183 lb 12.8 oz Weight 185 lb 4.8 oz Weight 187 lb 6 oz Physical Exam 2 Narrative: General: Comfortable appearing patient, seated in chair, eating breakfast this morning. Conversing well, alert and oriented. HEENT: Head atraumatic, normocephalic, PERRL, neck supple no thyromegaly noted. CV: Irregular rate, irregular rhythm, S1 and S2 noted, 2/6 murmur noted, no rubs or gallops noted. Pulm: Lungs clear to auscultation bilaterally. GI: Abdomen soft, nontender, bowel sounds present. Extremities: +2 pitting edema noted in bilateral lower extremities. Ecchymosis noted on lower extremities, moderate to severe sun damage in bilateral upper dorsal forearms and hands. Urinary Catheter Management: Squires: Cath Placed During This Visit: yes Reason for Continuing Indwelling Catheter: Acute Urinary Retention or Obstruction Urinary Catheter Date of Insertion: 03/09/24 Urinary Catheter Time of Insertion: 15:00 Data 03/11/24 03:48 03/11/24 03:48 Other Labs: LFTs are normal Troponin 53 with repeat of 50 BNP 2475 Albumin and calcium are normal Chest x-ray by my read demonstrates cardiomegaly, pulmonary congestion, previous bypass surgery. EKG by my read demonstrates A-fib, initial 1 with rapid ventricular rate. Right axis deviation. Right bundle branch block. Echo February 2023 demonstrated an EF of 50 to 55%, hypokinetic RV, mild aortic stenosis. Gradient was 11 at that time. Angiogram November 2021 demonstrated all coronary grafts patent, total occlusion three-vessel coronary disease. Medical management was recommended at that time. A&P Assessment and plan (1) Chest pain: Patient presents with recurrent chest discomfort, was responsive to nitroglycerin. He reports slight chest discomfort this morning as well. Cardiology consult appreciated. Nuclear stress test not recommended currently. Holding off on echocardiogram. Continue telemetry Serial cardiac enzymes reviewed Monitor for any recurrent chest pain Has known underlying coronary disease. Continue Plavix, statin, ranolazine, Imdur. Metoprolol increased by cardiology to 25 mg twice daily. Patient showing great improvement. Qualifiers: Chest pain type: precordial pain Qualified Code(s): R07.2 - Precordial pain (2) Atrial fibrillation: Patient appeared to have A-fib with RVR on arrival. Heart rate currently under control. Monitor on telemetry Continue diltiazem Beta-darin added, then increased. Hold apixaban. Changed to subcutaneous heparin currently in case procedure is warranted. Qualifiers: Atrial fibrillation type: persistent (not longstanding) Qualified Code(s): I48.19 - Other persistent atrial fibrillation (3) Acute CHF: Patient with acute CHF, most probably diastolic. He has also got some right ventricular dysfunction on his last echocardiogram. Aortic stenosis was only mild at that time. Consulted cardiology Discontinue IV Lasix. Switch patient to Lasix 40 mg, p.o., twice daily Holding ARB currently secondary to renal dysfunction. Overall he is improving significantly with 2 L diuresis (4) Acute kidney injury: Patient with acute kidney injury. Squires Catheter placed secondary to urinary retention Renal ultrasound 03/10/24 demonstrated mild progression of chronic medical disease in the right kidney as well as no change to the complex cystic mass located in the same right kidney. Significant post void urinary retention as well as suspected bladder outlet obstruction noted. Hold renal toxic medication Hold ARB Add Flomax Likely discharge with catheter, and urology follow-up as residual urine when catheter was placed was over 500 cc. Plan Probable COPD. Long history of smoking. He was wheezing on admission although that could also be related to his fluid overload. Budesonide twice daily. DuoNeb every 6 hours scheduled. Multiple other medical problems as outlined by past medical history. Monitoring patient for treatment response and Lasix p.o., most likely discharge tomorrow. Full code currently Heparin will suffice for DVT prophylaxis. Coding Level of Care Code 43222 Diagnoses Precordial pain R07.2 Chest pain type: precordial pain Persistent atrial fibrillation I48.19 Atrial fibrillation type: persistent (not longstanding) Acute CHF I50.9 Acute kidney injury N17.9 Time Spent (min) 22 Documented by User: Archie Thomas MD 03/11/24 11:23 Physical Exam 2 Narrative: General: Comfortable appearing patient, seated in chair, eating breakfast this morning. Conversing well, alert and oriented. 1500 cc negative HEENT: Head atraumatic, normocephalic, PERRL, neck supple no thyromegaly noted. CV: Irregular rate, irregular rhythm, S1 and S2 noted, 2/6 murmur noted, no rubs or gallops noted. Pulm: Lungs clear to auscultation bilaterally. GI: Abdomen soft, nontender, bowel sounds present. Extremities: +2 pitting edema noted in bilateral lower extremities. Ecchymosis noted on lower extremities, moderate to severe sun damage in bilateral upper dorsal forearms and hands. Urinary Catheter Management: Squires: Cath Placed During This Visit: yes Data 03/11/24 03:48 03/11/24 03:48 A&P Assessment and plan (1) Chest pain: Patient presents with recurrent chest discomfort, was responsive to nitroglycerin. Cardiology consult appreciated. Nuclear stress test not recommended currently. Holding off on echocardiogram. Continue telemetry Serial cardiac enzymes reviewed Monitor for any recurrent chest pain Has known underlying coronary disease. Continue Plavix, statin, ranolazine, Imdur. Metoprolol increased by cardiology to 25 mg twice daily. He denies any chest discomfort this morning. Qualifiers: Chest pain type: precordial pain Qualified Code(s): R07.2 - Precordial pain (2) Atrial fibrillation: Patient appeared to have A-fib with RVR on arrival. Heart rate currently under control. Monitor on telemetry Continue diltiazem Beta-darin added, then increased. Restart apixaban as no procedures planned. Qualifiers: Atrial fibrillation type: persistent (not longstanding) Qualified Code(s): I48.19 - Other persistent atrial fibrillation (3) Acute CHF: Patient with acute CHF, most probably diastolic. He has also got some right ventricular dysfunction on his last echocardiogram. Aortic stenosis was only mild at that time. Consulted cardiology. They would prefer that he is transition to p.o. Lasix, and likely discharge tomorrow if continues to progress Discontinue IV Lasix. Switch patient to Lasix 40 mg, p.o., twice daily Holding ARB currently secondary to renal dysfunction. Overall he is improving significantly with 2 L diuresis (4) Acute kidney injury: Patient with acute kidney injury. Squires Catheter placed secondary to urinary retention Renal ultrasound 03/10/24 demonstrated mild progression of chronic medical disease in the right kidney as well as no change to the complex cystic mass located in the same right kidney. Significant post void urinary retention as well as suspected bladder outlet obstruction noted. Hold renal toxic medication Hold ARB Add Flomax Likely discharge with catheter, and urology follow-up as residual urine when catheter was placed was over 500 cc. Outpatient follow-up with urology in 2 weeks Renal function improved Attestations 2 Medical Necessity Statement*: Needs continued hospitalization for transition to oral medicines for CHF exacerbation, with close follow-up of electrolytes. Diagnoses Precordial pain R07.2 Chest pain type: precordial pain Persistent atrial fibrillation I48.19 Atrial fibrillation type: persistent (not longstanding) Acute CHF I50.9 Acute kidney injury N17.9 Time Spent (min) 22
--- NOTE | 2024-03-11 09:02 | PC.CHAP ---
Pastoral Care Encounter/Spiritual Assessment Type of Contact [] Declined care taker visit [] Patient/Family/Request visit [] Outpatient visit [] Follow-up visit [] Physician referral [] Code/Alert [x] Routine visit [] Staff referral [] Actively dying [] Patient sleeping [] Family support [] [] Out of room [] Palliative care [] [] Receiving care in room [] Pre-surgical visit [] Trauma [] Long length of stay [] ICU visit [] Other: Relational/Emotional Strength [x] Patient feels connected with others/family/visitors/staff [] Distress [] Loneliness/isolation [] Abandonment Spirituality of Patient [x] Person of [place] [x] Attends Yazidi of their [place] [x] Believes in Prayer [x] Reads Bible or Anabaptism materials [] There are Spiritual issues to be addressed [employer] Interventions [x] Prayer []x Active listening [] Non-anxious presence [x] Spiritual/emotional support [] Crisis/trauma care [] Spiritual counseling [] Bereavement support [] Provided bereavement packet [] Provided Bible/devotional materials [] Provided toy/stuffed animal, coloring book to patient or family member [] Provided Communion [] Anointing/[place] [] Salvation [x] Completed spiritual assessment [] Other: Impact on Illness or Injury [] Angry [] Fearful [] Anxious [] Often cries [] Exhaustion [] Unable to work [] Unable to attend buddhism [] Unable to walk/stand [] Unable to read [] Unable to drive [] Unable to eat/drink [] Unable to sleep [] Unable to be with family [] Patient intubated [] Other: Summary Time spent with patient
[2024-03-11] MEDS: finasteride 5 mg Tablet PO (09:20)
[2024-03-11] MEDS: metoprolol tartrate 25 mg Tablet PO ×2 (09:20→18:55)
[2024-03-11] MEDS: tamsulosin 0.4 mg Capsule 0.400000000000000022 MG PO (09:20)
[2024-03-11] MEDS: ranolazine (12HR) 500 mg Tablet PO ×2 (09:21→18:55)
[2024-03-11] MEDS: dilTIAZem ER (24HR) 180 mg Capsule PO (09:21)
[2024-03-11] MEDS: isosorbide mononitrate ER 30 mg Tablet PO ×2 (09:21→17:07)
[2024-03-11] MEDS: clopidogrel 75 mg Tablet PO (09:21)
[2024-03-11] MEDS: FUROsemide 40 mg Tablet PO ×2 (10:35→17:06)
--- NOTE | 2024-03-11 12:41 | PC.SOCIAL ---
Pg 2 IMM Explained to pt & Pg 2 IMM. No questions voiced. Provided pt a copy. Initialed, dated, & timed a copy & placed in chart.
[2024-03-11] MEDS: nicotine 21 mg Patch 1 PATCH TRANSDERMA (15:22)
[2024-03-11] MEDS: atorvastatin 40 mg Tablet PO (17:06)
[2024-03-11] MEDS: ropinirole 2 mg Tablet PO (17:07)
[2024-03-11] MEDS: apixaban 5 mg Tablet 2.5 MG PO (21:00)
[2024-03-11] MEDS: zolpidem 5 mg Tablet PO (23:36)
[2024-03-12] VITALS (7 sets, daily range): BP systolic 114–132; BP diastolic 55–76; PULSE 62–90; RESP 15–26; TEMP 36.4–36.6; O2SAT 94–96; BMI 26.4
[2024-03-12 09:18] LABS: Blood Urea Nitrogen 45 mg/dL (8-23); Calcium 8.5 mg/dL (8.5-10.5); Carbon Dioxide 28 mmol/L (22-29); Chloride 102 mmol/L (98-107); Glucose 86 mg/dL (65-115); Magnesium 2.3 mg/dL (1.7-2.3); Osmolality Calculated 299 mOsm/kg (285-295); Sodium 139 mmol/L (136-145)
[2024-03-12 09:27] LABS: Creatinine Clr Calc Pharmacy 34.0359
[2024-03-12 09:28] LABS: Anion Gap 13.3 (5-19); Potassium 4.3 mmol/L (3.5-5.1)
[2024-03-12] MEDS: tamsulosin 0.4 mg Capsule 0.400000000000000022 MG PO (09:48)
[2024-03-12] MEDS: finasteride 5 mg Tablet PO (09:48)
[2024-03-12] MEDS: isosorbide mononitrate ER 30 mg Tablet PO (09:48)
[2024-03-12] MEDS: dilTIAZem ER (24HR) 180 mg Capsule PO (09:48)
[2024-03-12] MEDS: FUROsemide 40 mg Tablet PO (09:49)
[2024-03-12] MEDS: ranolazine (12HR) 500 mg Tablet PO (09:49)
[2024-03-12] MEDS: metoprolol tartrate 25 mg Tablet PO (09:49)
[2024-03-12] MEDS: apixaban 5 mg Tablet 2.5 MG PO (09:49)
[2024-03-12] MEDS: clopidogrel 75 mg Tablet PO (09:49)
[2024-03-12] MEDS: carbidopa-levodopa 25-100mg Tablet 0.5 EACH PO (09:50)
--- NOTE | 2024-03-12 09:52 | P.PN_ITS ---
Subjective 2 Subjective: Cardiology coverage Patient with multiple medical problems, presented to the hospital with unstable anginal symptoms and features of congestive heart failure. Patient is known to have extensive arterial disease including peripheral artery disease, abdominal aortic aneurysm, coronary artery disease the aortic stent graft is patent with no evidence of endoleak. Since the patient is remaining stable with no specific symptoms pertaining to the aneurysm, may continue on the current treatment. Will have the follow-up evaluation as scheduled coronary artery disease. Also known to have COPD Currently seems to be stable with no chest pain or shortness of breath. He has been ambulating on telemetry without any problems. He is wanting to go home today. Medications: Medication Review Details: Current Medications Acetaminophen (Acetaminophen 325 Mg Tablet) 650 mg PO Q6H PRN PRN Reason: Mild/Mod Pain Or Temp >/= 101 Albuterol/Ipratropium (Ipratropium-Albuterol 3 Ml Neb) 3 ml INHALATION Q6H.RESP PRN PRN Reason: Shortness Of Breath Apixaban (Apixaban 5 Mg Tablet) 2.5 mg PO BID@0900,2100 [facility] Last Admin: 03/11/24 21:00 Dose: 2.5 mg Atorvastatin Calcium (Atorvastatin 40 Mg Tablet) 40 mg PO QPM [facility] Last Admin: 03/11/24 17:06 Dose: 40 mg Budesonide (Budesonide 0.5 Mg/2 Ml Neb) 0.5 mg INHALATION BID.RESPIRATORY PRN PRN Reason: SHORTNESS OF BREATH Carbidopa/Levodopa (Carbidopa-Levodopa 25-100mg Tablet) 0.5 each PO TID PRN PRN Reason: Restless Leg Syndrome Last Admin: 03/10/24 22:12 Dose: 0.5 each Clopidogrel Bisulfate (Clopidogrel 75 Mg Tablet) 75 mg PO DAILY [facility] Last Admin: 03/11/24 09:21 Dose: 75 mg Diltiazem HCl (Diltiazem Er (24hr) 180 Mg Capsule) 180 mg PO DAILY [facility] Last Admin: 03/11/24 09:21 Dose: 180 mg Finasteride (Finasteride 5 Mg Tablet) 5 mg PO DAILY [facility] Last Admin: 03/11/24 09:20 Dose: 5 mg Furosemide (Furosemide 40 Mg Tablet) 40 mg PO BID@08,16 [facility] Last Admin: 03/11/24 17:06 Dose: 40 mg Isosorbide Mononitrate (Isosorbide Mononitrate Er 30 Mg Tablet) 30 mg PO BID [facility] Last Admin: 03/11/24 17:07 Dose: 30 mg Metoprolol Tartrate (Metoprolol Tartrate 25 Mg Tablet) 25 mg PO BID [facility] Last Admin: 03/11/24 18:55 Dose: 25 mg Nicotine (Nicotine 21 Mg Patch) 1 patch TRANSDERMA DAILY [facility] Last Admin: 03/11/24 15:22 Dose: 1 patch Nitroglycerin (Nitroglycerin 0.4 Mg Sublingual Tablet) 0.4 mg SUBLINGUAL Q5M PRN PRN Reason: CHEST PAIN Ondansetron HCl (Ondansetron 2 Mg/Ml Sdv 2 Ml) 4 mg IVP Q6H PRN PRN Reason: vomiting, or N/V if npo Ranolazine (Ranolazine (12hr) 500 Mg Tablet) 500 mg PO BID [facility] Last Admin: 03/11/24 18:55 Dose: 500 mg Ropinirole HCl (Ropinirole 2 Mg Tablet) 2 mg PO QPM [facility] Last Admin: 03/11/24 17:07 Dose: 2 mg Tamsulosin HCl (Tamsulosin 0.4 Mg Capsule) 0.4 mg PO DAILY [facility] Last Admin: 03/11/24 09:20 Dose: 0.4 mg Vitals/I&O/Wt Last Vital Signs Temp 97.6 F 03/12/24 04:00 Pulse 69 03/12/24 09:20 Resp 18 03/12/24 09:20 BP 130/76 03/12/24 07:32 Pulse Ox 95 03/12/24 09:20 O2 Del Method Room Air 03/12/24 09:20 O2 Flow Rate 2 03/09/24 12:40 03/11/24 03/12/24 03/12/24 22:59 06:59 14:59 Intake Total 610 / 850 240 / 240 Output Total 1900 / 2450 Balance 610 / 300 -1900 / -1600 240 / 240 Weight last 48 hrs Weight 183 lb 12.8 oz Weight 183 lb 12.8 oz Physical Exam 2 Narrative: GENERAL: The patient is alert and oriented times three. Not in any acute distress. HEENT: No significant pallor, icterus or lymphadenopathy.Oral cavity: There are no mucous membrane lesions. NECK: Trachea appears to be central. No masses noted. No JVD or thyromegaly appreciated. RESPIRATORY: Chest is symmetrical. No intercostals muscle retraction or any accessory muscle activation. There is no chest wall tenderness. Breath sounds are heard bilaterally. No rales or rhonchi heard. No evidence of any consolidation. BREASTS: Deferred. HEART: The heart sounds are normal. No S3 or S4. No significant murmurs. No pericardial rub ABDOMEN: No vessel pulsations or distention. No tenderness. No organomegaly appreciated. Bowel sounds are normally heard. : Deferred. RECTAL: Deferred. LYMPHATIC: No lymphadenopathy noted in the neck. EXTREMITIES: No edema or cyanosis. No clubbing. MUSCULOSKELETAL: No acute joint deformities or swelling SKIN: There are no significant rashes or ecchymosis NEUROPSYCHIATRIC: The patient is alert and oriented x3. Appears to be in a good mood. No tremors or rigidity noted. Urinary Catheter Management: Squires: Cath Placed During This Visit: yes Reason for Continuing Indwelling Catheter: Acute Urinary Retention or Obstruction Urinary Catheter Date of Insertion: 03/09/24 Urinary Catheter Time of Insertion: 15:00 Data 03/11/24 03:48 03/12/24 08:07 Other Labs: Laboratory Last Values WBC 9.45 10^3/uL (3.29-11.43) 03/11/24 03:48 RBC 4.04 10^6/uL (3.85-5.65) 03/11/24 03:48 Hgb 14.20 g/dL (11.27-16.99) 03/11/24 03:48 Hct 44.1 % (37-53) 03/11/24 03:48 MCV 109.2 fl (82-101) H 03/11/24 03:48 MCH 35.1 pg (27-33) H 03/11/24 03:48 MCHC 32.2 g/dL (30-55) 03/11/24 03:48 RDW 14.6 % (12.1-15.1) 03/11/24 03:48 Plt Count 143 10^3/cmm (157-399) L 03/11/24 03:48 MPV 9.5 fL (7.4-10.4) 03/11/24 03:48 Neut % (Auto) 70.1 % 03/11/24 03:48 Lymph % (Auto) 9.1 % 03/11/24 03:48 Mccormick % (Auto) 14.8 % 03/11/24 03:48 Eos % (Auto) 1.8 % 03/11/24 03:48 Baso % (Auto) 0.5 % 03/11/24 03:48 Neut # (Auto) 6.62 10^3/uL (1.8-7.7) 03/11/24 03:48 Lymph # (Auto) 0.9 10^3/uL (0.8-4.8) 03/11/24 03:48 Mccormick # (Auto) 1.4 10^3/uL (0.2-0.9) H 03/11/24 03:48 Eos # (Auto) 0.2 10^3/uL (0.0-0.8) 03/11/24 03:48 Baso # (Auto) 0.1 10^3/uL (0.0-0.1) 03/11/24 03:48 Nucleated RBC % (auto) 0 % 03/11/24 03:48 Nucleated RBCs # 0.0 /100WBC 03/11/24 03:48 Sodium 139 mmol/L (136-145) 03/12/24 08:07 Potassium 4.3 mmol/L (3.5-5.1) 03/12/24 08:07 Chloride 102 mmol/L (98-107) 03/12/24 08:07 Carbon Dioxide 28 mmol/L (22-29) 03/12/24 08:07 Anion Gap 13.3 (5-19) 03/12/24 08:07 BUN 45 mg/dL (8-23) H 03/12/24 08:07 Creatinine 1.7 mg/dL (0.7-1.2) H 03/12/24 08:07 GFR Calculation Not Reportable 03/12/24 08:07 Glucose 86 mg/dL (65-115) 03/12/24 08:07 Calculated Osmolality 299 mOsm/kg (285-295) H 03/12/24 08:07 Calcium 8.5 mg/dL (8.5-10.5) 03/12/24 08:07 Magnesium 2.3 mg/dL (1.7-2.3) 03/12/24 08:07 Total Bilirubin 1.1 mg/dL (0.15-1.2) 03/10/24 02:09 AST 30 U/L (0-40) 03/10/24 02:09 ALT 7 U/L (0-41) 03/10/24 02:09 Alkaline Phosphatase 100 U/L (40-130) 03/10/24 02:09 Troponin T Baseline 53 ng/L (0-15) H 03/09/24 05:24 Troponin T 120 Minute 50.14 ng/L (0-15) H 03/09/24 07:16 Delta Troponin T -2.86 ABS# (0-10) L 03/09/24 07:16 Troponin T Hi Sens 6Hr 55.12 ng/L (0-15) H 03/09/24 12:02 Troponin T Hi Sens 6Hr Delta 2.12 ng/L (0-12) 03/09/24 12:02 NT-Pro-B Natriuret Pep 2475 pg/mL (0-450) H 03/09/24 05:24 Total Protein 6.5 g/dL (6.6-8.7) L 03/10/24 02:09 Albumin 3.9 g/dL (3.5-5.2) 03/10/24 02:09 Globulin 2.6 g/dL (1.3-4.6) 03/10/24 02:09 Urine Color Yellow (Yellow) 03/09/24 15:15 Urine Appearance Clear (CLEAR) 03/09/24 15:15 Urine pH 6 (5-7) 03/09/24 15:15 Ur Specific Eden 1.015 (1.005-1.030) 03/09/24 15:15 Urine Protein Neg (Negative) 03/09/24 15:15 Urine Glucose (UA) Norm (Normal) 03/09/24 15:15 Urine Ketones Negative (Negative) 03/09/24 15:15 Urine Blood Neg (Negative) 03/09/24 15:15 Urine Nitrate Negative (Negative) 03/09/24 15:15 Urine Bilirubin Neg (Negative) 03/09/24 15:15 Urine Urobilinogen Norm mg/dL (Negative) 03/09/24 15:15 Ur Leukocyte Esterase Trace (Negative) H 03/09/24 15:15 Urine RBC 0-4 /hpf (0-2) H 03/09/24 15:15 Urine WBC 0-4 /hpf (0-5) H 03/09/24 15:15 Ur Squamous Epith Cells None /hpf (0-5) 03/09/24 15:15 Amorphous Sediment Not Reportable 03/09/24 15:15 Urine Bacteria None /hpf (NONE) 03/09/24 15:15 Hyaline Casts 0-4 /lpf H 03/09/24 15:15 Urine Mucus Trace /hpf 03/09/24 15:15 A&P Assessment and plan (1) Congestive heart failure: The heart failure is fairly compensated at this time. Patient may continue on the current medications. Qualifiers: Heart failure chronicity: chronic Heart failure type: systolic Qualified Code(s): I50.22 - Chronic systolic (congestive) heart failure (2) Atherosclerosis of coronary artery of unga heart without angina pectoris: Since the patient has no recurrence of chest pain, he may not require any further intervention at this point. Advised to continue the current treatment measures. Qualifiers: Coronary Disease-Associated Artery/Lesion type: unga artery Qualified Code(s): I25.10 - Atherosclerotic heart disease of unga coronary artery without angina pectoris (3) Peripheral arterial disease: Since the patient has no specific symptoms of peripheral artery insufficiency, is advised to continue on the current medications and exercise program. Current medications were reviewed. In the event of developing any unusual leg pain or skin color changes, advised to contact our office (4) S/P AAA (abdominal aortic aneurysm) repair: Patient has no evidence of aneurysm expansion. (5) S/P femoral-femoral bypass surgery: Currently seems to be stable. (6) HTN (hypertension), benign: Since the blood pressure is in the normal range, patient may not require any medication changes at this time. Advised to continue on the current measures. Plan Since the patient's overall cardiovascular status seems to be stable. If the patient continues remain stable, he may be discharged home from a cardiac standpoint. Will be seen in the clinic in 2 weeks by the nurse practitioner and will be seen by the inside sales coordinator in 1 month. Attestations 2 Medical Necessity Statement*: Possible discharge home today Coding Level of Care Code 52630 Diagnoses Congestive heart failure I50.22 Heart failure chronicity: chronic Heart failure type: systolic Atherosclerosis of unga coronary artery of unga heart without angina pectoris I25.10 Coronary Disease-Associated Artery/Lesion type: unga artery Peripheral arterial disease I73.9 S/P AAA (abdominal aortic aneurysm) repair Z98.890; Z86.79 S/P femoral-femoral bypass surgery Z95.828 HTN (hypertension), benign I10
--- NOTE | 2024-03-12 11:16 | PM.DCS ---
Discharge Providers Date of Admission: 03/09/24 11:05 Date of Discharge: March 12, 2024 Attending Provider at Admission: Archie Thomas MD Attending Provider at Discharge: Earl Salter MD Primary Care Provider: Gwen Sanon NP Diagnoses at Discharge Discharge Diagnosis (1) Chest pain: Status: Acute Qualifiers: Chest pain type: precordial pain Qualified Code(s): R07.2 - Precordial pain (2) Atrial fibrillation: Status: Acute Qualifiers: Atrial fibrillation type: persistent (not longstanding) Qualified Code(s): I48.19 - Other persistent atrial fibrillation (3) Acute CHF: Status: Acute (4) Acute kidney injury: Status: Acute (5) Encounter for smoking cessation counseling: Status: Acute Reason for Visit Reason for Visit: Chest Pains Hospital Course Hospital Course Steven Tee is a 88 year old male presenting to the emergency department with shortness of breath and chest pain. He relates he has used at least 4 nitroglycerin since yesterday afternoon. He reports pain seems to come and go, going away every time he takes a nitroglycerin. He had recently seen cardiology, on March 08 and described intermittent chest discomfort as well. At that time it was thought he had some evidence of fluid overload, and there was concern he would need a nuclear stress test as well as an echo for evaluation of heart disease as well as aortic stenosis. He reports substernal chest discomfort. No nausea or vomiting. Reports his lower extremities have been significantly swollen. He believes he is urinating okay, without incontinence and believes as if his bladder is emptying. He has had no fever, cough, other illness. comments he has been wheezing quite a bit. He does continue to smoke. No blood in his stool or black or tarry stools. He has recently been on prednisone for his wheezing. In the emergency department he got some aspirin, and nitroglycerin ointment. Patient was admitted to [facility] for chest pain, A-fib with RVR, acute CHF exacerbation, GODFREY, patient received IV diuresis, heart rate control, cardiology was consulted, overall clinically improved. Will be discharged on Lasix 40 twice daily with potassium replacement therapy with close follow-up with cardiology as outpatient For his history of COPD, smoking cessation counseling Patient had urinary retention during his hospitalization, discharged with Squires catheter in place with a close follow-up with urology for urodynamic testing and removal of Squires catheter. Patient was also found to have a cystic mass right kidney, follow-up with urology for this Physical Exam Const: COMMON NORMALS: no acute distress and patient oriented x3 HENMT: COMMON NORMALS: normocephalic HEAD & SCALP: normocephalic Resp: COMMON NORMALS: normal respiratory effort, No retractions, No use of accessory muscles and clear to auscultation bilaterally AUSCULTATION: clear to auscultation bilaterally Cardio: COMMON NORMALS: regular rate, regular rhythm, S1 normal heart sound present and S2 normal heart sound present RATE: regular rate RHYTHM: regular rhythm HEART SOUNDS: S1 normal heart sound present and S2 normal heart sound present GI: COMMON NORMALS: Normal to inspection, nondistended, normoactive bowel sounds present and non-tender Extremity: COMMON NORMALS: no pedal edema Neuro: COMMON NORMALS: patient oriented x3 Psych: COMMON NORMALS: mental status grossly normal Urinary Catheter Management: Squires: Cath Placed During This Visit: yes Reason for Continuing Indwelling Catheter: Acute Urinary Retention or Obstruction Urinary Catheter Date of Insertion: 03/09/24 Urinary Catheter Time of Insertion: 15:00 Discharge Data Studies Completed and Pending Completed Studies During Hospitalization Category Date Time Status XR chest 1V portable [id number] Stat Exams 03/09/24 05:14 Completed US renal BI* [id number] Routine Ultrasound 03/09/24 13:46 Completed Radiology Impressions Chest X-Ray 03/09/24 05:14 IMPRESSION: No focal acute pulmonary disease identified. Laboratory Results WBC 9.45 10^3/uL (3.29-11.43) 03/11/24 03:48 RBC 4.04 10^6/uL (3.85-5.65) 03/11/24 03:48 Hgb 14.20 g/dL (11.27-16.99) 03/11/24 03:48 Hct 44.1 % (37-53) 03/11/24 03:48 MCV 109.2 fl (82-101) H 03/11/24 03:48 MCH 35.1 pg (27-33) H 03/11/24 03:48 MCHC 32.2 g/dL (30-55) 03/11/24 03:48 RDW 14.6 % (12.1-15.1) 03/11/24 03:48 Plt Count 143 10^3/cmm (157-399) L 03/11/24 03:48 MPV 9.5 fL (7.4-10.4) 03/11/24 03:48 Neut % (Auto) 70.1 % 03/11/24 03:48 Lymph % (Auto) 9.1 % 03/11/24 03:48 Anderson % (Auto) 14.8 % 03/11/24 03:48 Eos % (Auto) 1.8 % 03/11/24 03:48 Baso % (Auto) 0.5 % 03/11/24 03:48 Neut # (Auto) 6.62 10^3/uL (1.8-7.7) 03/11/24 03:48 Lymph # (Auto) 0.9 10^3/uL (0.8-4.8) 03/11/24 03:48 Anderson # (Auto) 1.4 10^3/uL (0.2-0.9) H 03/11/24 03:48 Eos # (Auto) 0.2 10^3/uL (0.0-0.8) 03/11/24 03:48 Baso # (Auto) 0.1 10^3/uL (0.0-0.1) 03/11/24 03:48 Nucleated RBC % (auto) 0 % 03/11/24 03:48 Nucleated RBCs # 0.0 /100WBC 03/11/24 03:48 Sodium 139 mmol/L (136-145) 03/12/24 08:07 Potassium 4.3 mmol/L (3.5-5.1) 03/12/24 08:07 Chloride 102 mmol/L (98-107) 03/12/24 08:07 Carbon Dioxide 28 mmol/L (22-29) 03/12/24 08:07 Anion Gap 13.3 (5-19) 03/12/24 08:07 BUN 45 mg/dL (8-23) H 03/12/24 08:07 Creatinine 1.7 mg/dL (0.7-1.2) H 03/12/24 08:07 GFR Calculation Not Reportable 03/12/24 08:07 Glucose 86 mg/dL (65-115) 03/12/24 08:07 Calculated Osmolality 299 mOsm/kg (285-295) H 03/12/24 08:07 Calcium 8.5 mg/dL (8.5-10.5) 03/12/24 08:07 Magnesium 2.3 mg/dL (1.7-2.3) 03/12/24 08:07 Total Bilirubin 1.1 mg/dL (0.15-1.2) 03/10/24 02:09 AST 30 U/L (0-40) 03/10/24 02:09 ALT 7 U/L (0-41) 03/10/24 02:09 Alkaline Phosphatase 100 U/L (40-130) 03/10/24 02:09 Troponin T Baseline 53 ng/L (0-15) H 03/09/24 05:24 Troponin T 120 Minute 50.14 ng/L (0-15) H 03/09/24 07:16 Delta Troponin T -2.86 ABS# (0-10) L 03/09/24 07:16 Troponin T Hi Sens 6Hr 55.12 ng/L (0-15) H 03/09/24 12:02 Troponin T Hi Sens 6Hr Delta 2.12 ng/L (0-12) 03/09/24 12:02 NT-Pro-B Natriuret Pep 2475 pg/mL (0-450) H 03/09/24 05:24 Total Protein 6.5 g/dL (6.6-8.7) L 03/10/24 02:09 Albumin 3.9 g/dL (3.5-5.2) 03/10/24 02:09 Globulin 2.6 g/dL (1.3-4.6) 03/10/24 02:09 Urine Color Yellow (Yellow) 03/09/24 15:15 Urine Appearance Clear (CLEAR) 03/09/24 15:15 Urine pH 6 (5-7) 03/09/24 15:15 Ur Specific [place] 1.015 (1.005-1.030) 03/09/24 15:15 Urine Protein Neg (Negative) 03/09/24 15:15 Urine Glucose (UA) Norm (Normal) 03/09/24 15:15 Urine Ketones Negative (Negative) 03/09/24 15:15 Urine Blood Neg (Negative) 03/09/24 15:15 Urine Nitrate Negative (Negative) 03/09/24 15:15 Urine Bilirubin Neg (Negative) 03/09/24 15:15 Urine Urobilinogen Norm mg/dL (Negative) 03/09/24 15:15 Ur Leukocyte Esterase Trace (Negative) H 03/09/24 15:15 Urine RBC 0-4 /hpf (0-2) H 03/09/24 15:15 Urine WBC 0-4 /hpf (0-5) H 03/09/24 15:15 Ur Squamous Epith Cells None /hpf (0-5) 03/09/24 15:15 Amorphous Sediment Not Reportable 03/09/24 15:15 Urine Bacteria None /hpf (NONE) 03/09/24 15:15 Hyaline Casts 0-4 /lpf H 03/09/24 15:15 Urine Mucus Trace /hpf 03/09/24 15:15 Vitals Last Vital Signs Temp 97.6 F 03/12/24 04:00 Pulse 74 03/12/24 11:09 Resp 21 H 03/12/24 11:09 BP 114/69 03/12/24 11:09 Pulse Ox 95 03/12/24 09:20 O2 Del Method Room Air 03/12/24 11:09 O2 Flow Rate 2 03/09/24 12:40 Discharge Plan Discharge Patient Disposition: Home Condition: Stable Prescriptions: New metoprolol tartrate 25 mg Tablet 25 mg PO BID 30 Days Qty: 60 0RF tamsulosin 0.4 mg Capsule 0.4 mg PO DAILY 30 Days Qty: 30 0RF Continued atorvastatin 40 mg tablet 40 mg PO QPM diltiazem HCl [Cartia XT] 180 mg capsule,extended release 24hr 180 mg PO DAILY finasteride 5 mg tablet 5 mg PO DAILY multivitamin Tablet 1 tab PO DAILY nitroglycerin [Nitrostat] 0.4 mg tablet, sublingual 0.4 mg SUBLINGUAL Q5M PRN (Reason: chest pain) Qty: 25 3RF Rx Instructions: do not exceed 3 doses per episode ropinirole 2 mg tablet 2 mg PO QPM omega-3 fatty acids 500 mg capsule 500 mg PO DAILY clopidogrel 75 mg tablet 75 mg PO DAILY Qty: 90 3RF isosorbide mononitrate 30 mg tablet extended release 24 hr 30 mg PO BID Qty: 180 3RF ranolazine 500 mg tablet extended release 12 hr 500 mg PO BID Qty: 180 3RF albuterol sulfate 90 mcg/actuation HFA aerosol inhaler 2 inh inhalation Q4H PRN (Reason: Shortness Of Breath) Rx Instructions: use with spacer carbidopa-levodopa 25-100 mg Tablet 0.5 ea PO TID PRN (Reason: Restless Leg Syndrome) Qty: 30 0RF Changed Eliquis 5 mg tablet 2.5 mg PO BID 30 Days Qty: 30 0RF furosemide 40 mg tablet 40 mg PO BID 30 Days Qty: 60 0RF potassium chloride 20 mEq tablet extended release 20 meq PO BID 30 Days Qty: 60 0RF Rx Instructions: with lasix Discontinued losartan 25 mg tablet 25 mg PO DAILY prednisone 10 mg tablet See Rx Instructions .ROUTE .COMPLEX Rx Instructions: Taper as directed. doxycycline hyclate 100 mg capsule 100 mg PO DAILY Discharge Orders: Discharge Order (Routine); Ordered 03/12/24 Ordered By: Earl Salter Referrals: Gwen Sanon NP [Primary Care Provider] - 03/15/24 9:30 am Jeremy Bee MD [Physician] - 1 week (Your Dr. Bee follow up appointment will be scheduled during your Lelo Talley appointment. Thank you.) Sloan Wolf MD [Referring] - 03/29/24 9:00 am (Please arrive a few minutes early for new patient paperwork. Dr. Wolf's office address: [address] [place], [place]) Lelo Talley FNP [Nurse Practitioner] - (Lelo Talley's Office has your information and will be calling you to schedule a follow up appointment. You can call them if you have any questions or concerns. Thank you.) Discharge Diet: Cardiac Discharge Activity: Resume usual activity Patient Instructions: Metoprolol (By mouth) (Lopressor, Toprol XL), Tamsulosin (By mouth) (Flomax), Heart Failure (DC), CHF Stoplight, Opioid Safety Activity Restrictions/Additional Instructions: ?- Please quit smoking ? I am discharging you with Squires catheter in place, please follow-up with urology for Squires catheter removal, urodynamic testing ? Of discharge on Lasix 40 mg twice daily with potassium replacement therapy, see primary care provider for recheck kidney function next week ? Follow-up with cardiology as outpatient ? If any chest pain or shortness of breath to go to the emergency room Discharge Attestations Time Spent in Discharge Care*: greater than 30 min Time Spent in Smoking Cessation: more than 10 minutes Quality Metrics Clinical Quality Measures [ No reported AMI, CVA or VTE this stay] Coding Level of Care Code 89109 Total time (in minutes) for Discharge: 45 Diagnoses Precordial pain R07.2 Chest pain type: precordial pain Persistent atrial fibrillation I48.19 Atrial fibrillation type: persistent (not longstanding) Acute CHF I50.9 Acute kidney injury N17.9 Encounter for smoking cessation counseling Z71.6
== END 2024-03-12 12:36 | disposition home or self-care (01) | DRG 291 ==
LOC: ER 05:56 → CSU 11:06
PROVIDERS: Emergency Medicine; Admitting Provider Internal Medicine; Emergency Provider Family Medicine; PCP Nurse Practitioner Family; Visit Provider Family Medicine
DX: I13.0 Hypertensive heart and chronic kidney disease with heart failure and stage 1 through stage 4 chronic kidney disease, or unspecified chronic kidney disease (principal); I50.33 Acute on chronic diastolic (congestive) heart failure; I48.19 Other persistent atrial fibrillation; N17.9 Acute kidney failure, unspecified; N18.31 Chronic kidney disease, stage 3a; I35.0 Nonrheumatic aortic (valve) stenosis; F17.200 Nicotine dependence, unspecified, uncomplicated; G47.33 Obstructive sleep apnea (adult) (pediatric); I73.9 Peripheral vascular disease, unspecified; G25.81 Restless legs syndrome; N40.0 Benign prostatic hyperplasia without lower urinary tract symptoms; E78.5 Hyperlipidemia, unspecified; I25.110 Atherosclerotic heart disease of native coronary artery with unstable angina pectoris; J44.9 Chronic obstructive pulmonary disease, unspecified; I49.3 Ventricular premature depolarization; I45.10 Unspecified right bundle-branch block; N28.89 Other specified disorders of kidney and ureter; Z79.01 Long term (current) use of anticoagulants; Z79.02 Long term (current) use of antithrombotics/antiplatelets; Z95.1 Presence of aortocoronary bypass graft; Z98.890 Other specified postprocedural states
CPT/HCPCS: 36415; 51702; 71045; 76770; 80048; 80053; 81001; 81015; 83735; 83880; 84484; 85025; 93005; 94640; 96372; 96376; 99214; 99285; J1644; J1940; J7626

== ENCOUNTER 2024-03-17 08:58 | Observation (INO) | payer MEDICARE, OTHER, SELFPAY ==
[2024-03-17] VITALS (8 sets, daily range): BP systolic 104–130; BP diastolic 63–76; PULSE 78–100; RESP 14–19; TEMP 36.4–37.3; O2SAT 90–98; BMI 27.3
--- NOTE | 2024-03-17 09:14 | USCV_ITS ---
Steven Tee Age: 88 Gender: M : 1935 Exam Date: 03/17/2024 09:34 Ordering Phys: New Gillespie DO Technologist: RD [place] [facility] [place] BLE PAIN AND SWELLING HISTORY: Lower extremity swelling. Lower extremity pain. PROCEDURES: Venous duplex imaging was performed in bilateral lower extremities. The following venous structures were evaluated: common femoral vein, profunda vein, proximal portion of the greater saphenous vein, superficial femoral vein, and the popliteal vein. In addition, the posterior tibial and peroneal trunk were evaluated. Serial compression, augmentation maneuvers, and spectral Doppler flow evaluation were performed. FINDINGS: No evidence of DVT seen in any vessel visualized at this time. Edema seen in bilat lower legs Left Pop Fossa Pinedo's Cyst seen CONCLUSIONS No evidence of right lower extremity DVT. No evidence of left lower extremity DVT. Left popliteal cyst 2.4 x4.0cm Jeff Tafoya MD (Electronically Signed) Final Date: 17 Mar 2024 10:46 S
--- NOTE | 2024-03-17 09:15 | ECG_ITS ---
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 Measurements Intervals Dante Rate: 94 P: 0 HI: 0 QRS: 108 QRSD: 151 T: -69 QT: 407 QTc: 511 Interpretive Statements ATRIAL FIBRILLATION RIGHT AXIS DEVIATION [QRS AXIS > 100] RIGHT BUNDLE BRANCH BLOCK [120+ ms QRS DURATION, UPRIGHT V1, 40+ ms S IN I/aVL/V4/V5/V6] MODERATE T-WAVE ABNORMALITY, CONSIDER LATERAL ISCHEMIA [-0.1+ mV T-WAVE IN I/aVL/V5/V6] MODERATE T-WAVE ABNORMALITY, CONSIDER INFERIOR ISCHEMIA [-0.1+ mV T-WAVE IN II/aVF] Compared to ECG 03/09/2024 17:12:36 Right-axis deviation now present Left posterior fascicular block no longer present T-wave abnormality still present Possible ischemia still present Electronically Signed On 03-17-2024 23:02:01 CDT by José Luis Becker M.D. [email or web address]
--- NOTE | 2024-03-17 09:15 | XR_ITS ---
WS: [id number] XR chest 1V portable [id number] REASON FOR EXAM: dyspnea/cough FINDINGS: The chest is unchanged compared to 03/09/2024. Sternal sutures. Previous internal mammary coronary bypass surgery. Mild cardiomegaly. Central lower mediastinal mass density is shown on previous CT scan of 11/19/2022 to represent extremely enlarged left atrium. Calcified granulomas disease in both hemithoraces. 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 No acute pulmonary parenchym al or pleural abnormality is identified. XR/XR chest 1V portable [id number] IMPRESSION: Stable abnormal chest.
[2024-03-17 10:17] LABS: Basophils % 0.2 %; Eosinophils # 0.1 10^3/uL (0.0-0.8); Eosinophils % 0.5 %; Hematocrit 39.3 % (37-53); Lymphocytes # 0.6 10^3/uL (0.8-4.8); Lymphocytes % 4.3 %; Mean Corpuscular HGB Conc 33.1 g/dL (30-55); Mean Corpuscular Hemoglobin 35.4 pg (27-33); Mean Corpuscular Volume 107.1 fl (82-101); Mean Platelet Volume 10.2 fL (7.4-10.4); Monocytes # 1.4 10^3/uL (0.2-0.9); Neutrophils # 10.81 10^3/uL (1.8-7.7); Neutrophils % 83.1 %; Nucleated Red Blood Cells % 0 %; Platelet Count 121 10^3/cmm (157-399); Red Blood Count 3.67 10^6/uL (3.85-5.65); Red Cell Distribution Width 14.5 % (12.1-15.1); White Blood Count 13.01 10^3/uL (3.29-11.43)
[2024-03-17 10:45] LABS: Alanine Aminotransferase 24 U/L (0-41); Albumin Level 3.1 g/dL (3.5-5.2); Alkaline Phosphatase 121 U/L (40-130); Anion Gap 16.7 (5-19); Aspartate Amino Transferase 21 U/L (0-40); Blood Urea Nitrogen 70 mg/dL (8-23); Calcium 8.3 mg/dL (8.5-10.5); Carbon Dioxide 22 mmol/L (22-29); Chloride 100 mmol/L (98-107); Globulin 3.1 g/dL (1.3-4.6); Glucose 104 mg/dL (65-115); NT Pro B Type Natriuretic Pept 2533 pg/mL (0-450); Osmolality Calculated 299 mOsm/kg (285-295); Potassium 4.7 mmol/L (3.5-5.1); Sodium 134 mmol/L (136-145); Total Bilirubin 0.7 mg/dL (0.15-1.2); Total Protein 6.2 g/dL (6.6-8.7)
[2024-03-17 10:49] LABS: Creatinine Clr Calc Pharmacy 21.2593
--- NOTE | 2024-03-17 11:25 | ED_ITS ---
HPI - Extremity Problem 2 General: Chief complaint: Extremity Injury, Lower Stated complaint: swelling legs Time Seen by Provider: 03/17/24 09:12 Source: patient Mode of arrival: ambulatory History of Present Illness: 88-year-old male presents to the emergen cy room with complaints of swelling in his leg redness and irritation on the left lower leg. He is on Lasix 40 mg twice a day is recently hospitalized for congestive heart failure. He is noticing increased swelling in his lower extremities accompanying the increasing redness and discomfort. He is not currently on any antibiotics. He denies any chest pain or shortness of breath he has a history of previous DVTs on Eliquis 2-/2 twice a day. No fever sweats or chills. MD Complaint: extremity swelling Pain Consistency: constant Location: left and lower extremity Quality: aching Radiation: distal Relieving factors: nothing Exacerbating factors: nothing Associated symptoms: Deny arthralgias, chest pain, fever(s), myalgias, rash or short of breath Review of Systems 2 Const: Denies: fever(s) Card: Denies: chest pain Resp: Denies: dyspnea GI: Denies: abdominal pain : Denies: dysuria, urinary frequency or urinary urgency Musc: Denies: neck pain or back pain Skin/Breast: Denies: rash PFSH ED 2 PFSH: Medical History Aortic stenosis Tobacco abuse Peripheral arterial disease SHARON (obstructive sleep apnea) History of sleep study (01/2021) severe obstructive sleep apnea, optimal pressure setting 6cm, with recommendation for auto-titrating CPAP 5-9 cm Sleep apnea Atherosclerosis of leg with intermittent claudication RLS (restless legs syndrome) History of cardioversion 03/16/2019 BPH (benign prostatic hyperplasia) Hyperlipidemia CAD (coronary artery disease) Unstable angina HTN (hypertension), benign Varicose veins of bilateral lower extremities with other complications Atrial fibrillation Diastolic CHF CKD (chronic kidney disease) Surgical History S/P coronary angiogram 04/29/2007 S/P carotid endarterectomy S/P AAA (abdominal aortic aneurysm) repair with [place] endograft S/P femoral-femoral bypass surgery S/P CABG (coronary artery bypass graft) 1989 X1, 2007 X2 Family History Brother Cancer CAD (coronary artery disease) Diabetes Mother Heart disease CAD (coronary artery disease) Diabetes Sister CAD (coronary artery disease) Denies family history of Clotting disorder Dementia Chronic kidney disease (CKD) Suicide Anesthesia complication Bleeding disorder Lung disease Stroke Social History Smoking and tobacco/nicotine status: current every day tobacco/nicotine user Alcohol intake: never Substance/Drug Use: never Lives independently: Yes Household members: spouse Marital status: Physical Exam 2 Const: GENERAL APPEARANCE: cooperative and comfortable O RIENTATION/CONSCIOUSNESS: Yes awake, Yes oriented to person, Yes oriented to place and Yes oriented to time HENMT: COMMON NORMALS: normocephalic, atraumatic and hearing grossly normal bilaterally HEAD & SCALP: normocephalic and atraumatic Resp: COMMON NORMALS: normal respiratory effort, No retractions and No use of accessory muscles AUSCULTATION: crackles Laterality: bilateral and posterior Cardio: COMMON NORMALS: regular rate, regular rhythm and No murmurs present (Cardio) RATE: regular rate RHYTHM: regular rhythm GI: COMMON NORMALS: Soft to palpation and No hepatosplenomegaly present A USCULTATION: Yes normoactive bowel sounds PALPATION: Yes Soft to palpation, No Tenderness to palpation present (GI), No Guarding due to palpation present (GI) and Yes No hepatosplenomegaly present Extremity: GENERAL: Yes edema OTHER: Violaceous discoloration with induration of the skin on the lower left leg tender to the touch. Neuro: SENSORIUM/ORIENTATION: Yes oriented to person, Yes oriented to place and Yes oriented to time Skin: COMMON NORMALS: no rashes or lesions noted GENERAL SKIN EXAM: no rashes or lesions noted Course 2 Vital Signs: Vital signs: Vital Signs Temperature 97.9 F 03/17/24 09:29 Pulse Rate 94 03/17/24 12:00 Respiratory Rate 18 03/17/24 09:29 Blood Pressure 130/72 03/17/24 12:00 Pulse Oximetry 96 03/17/24 12:00 Oxygen Delivery Me thod Room Air 03/17/24 09:29 MDM - Extremity (Nontraumatic) Medical Decision Making Acute kidney injury with diuretics for heart failure. Additionally patient's white count is elevated with cellulitis of the left lower extremity. Cultures done started on vancomycin will admit for acute kidney injury and cellulitis. Discussed with hospitalist orders written Medical Records I reviewed the patient's medical records. Lab Data I reviewed the patient's lab results. 03/17/24 10:12 03/17/24 10:12 Radiology Impressions Chest X-Ray 03/17/24 09:15 IMPRESSION: Stable abnormal chest. Laboratory Results WBC 13.01 10^3/uL (3.29-11.43) H 03/17/24 10:12 RBC 3.67 10^6/uL (3.85-5.65) L 03/17/24 10:12 Hgb 13.00 g/dL (11.27-16.99) 03/17/24 10:12 Hct 39.3 % (37-53) 03/17/24 10:12 MCV 107.1 fl (82-101) H 03/17/24 10:12 MCH 35.4 pg (27-33) H 03/17/24 10:12 MCHC 33.1 g/dL (30-55) 03/17/24 10:12 RDW 14.5 % (12.1-15.1) 03/17/24 10:12 Plt Count 121 10^3/cmm (157-399) L 03/17/24 10:12 MPV 10.2 fL (7.4-10.4) 03/17/24 10:12 Neut % (Auto) 83.1 % 03/17/24 10:12 Lymph % (Auto) 4.3 % 03/17/24 10:12 Giles % (Auto) 11.0 % 03/17/24 10:12 Eos % (Auto) 0.5 % 03/17/24 10:12 Baso % (Auto) 0.2 % 03/17/24 10:12 Neut # (Auto) 10.81 10^3/uL (1.8-7.7) H 03/17/24 10:12 Lymph # (Auto) 0.6 10^3/uL (0.8-4.8) L 03/17/24 10:12 Giles # (Auto) 1.4 10^3/uL (0.2-0.9) H 03/17/24 10:12 Eos # (Auto) 0.1 10^3/uL (0.0-0.8) 03/17/24 10:12 Baso # (Auto) 0.0 10^3/uL (0.0-0.1) 03/17/24 10:12 Nucleated RBC % (auto) 0 % 03/17/24 10:12 Nucleated RBCs # 0.0 /100WBC 03/17/24 10:12 Sodium 134 mmol/L (136-145) L 03/17/24 10:12 Potassium 4.7 mmol/L (3.5-5.1) 03/17/24 10:12 Chloride 100 mmol/L (98-107) 03/17/24 10:12 Carbon Dioxide 22 mmol/L (22-29) 03/17/24 10:12 Anion Gap 16.7 (5-19) 03/17/24 10:12 BUN 70 mg/dL (8-23) H 03/17/24 10:12 Creatinine 2.6 mg/dL (0.7-1.2) H 03/17/24 10:12 GFR Calculation Not Reportable 03/17/24 10:12 Glucose 104 mg/dL (65-115) 03/17/24 10:12 Calculated Osmolality 299 mOsm/kg (285-295) H 03/17/24 10:12 Calcium 8.3 mg/dL (8.5-10.5) L 03/17/24 10:12 Total Bilirubin 0.7 mg/dL (0.15-1.2) 03/17/24 10:12 AST 21 U/L (0-40) 03/17/24 10:12 ALT 24 U/L (0-41) 03/17/24 10:12 Alkaline Phosphatase 121 U/L (40-130) 03/17/24 10:12 NT-Pro-B Natriuret Pep 2533 pg/mL (0-450) H 03/17/24 10:12 Total Protein 6.2 g/dL (6.6-8.7) L 03/17/24 10:12 Albumin 3.1 g/dL (3.5-5.2) L 03/17/24 10:12 Globulin 3.1 g/dL (1.3-4.6) 03/17/24 10:12 All radiology interpretation(s) finalized by discharge Discharge Plan Discharge Condition: Stable Prescriptions: No Action atorvastatin 40 mg tablet 40 mg PO QPM diltiazem HCl [Cartia XT] 180 mg capsule,extended release 24hr 180 mg PO DAILY finasteride 5 mg tablet 5 mg PO DAILY multivitamin Tablet 1 tab PO DAILY nitroglycerin [Nitrostat] 0.4 mg tablet, sublingual 0.4 mg SUBLINGUAL Q5M PRN (Reason: chest pain) Qty: 25 3RF Rx Instructions: do not exceed 3 doses per episode ropinirole 2 mg tablet 2 mg PO QPM omega-3 fatty acids 500 mg capsule 500 mg PO DAILY clopidogrel 75 mg tablet 75 mg PO DAILY Qty: 90 3RF isosorbide mononitrate 30 mg tablet extended release 24 hr 30 mg PO BID Qty: 180 3RF ranolazine 500 mg tablet extended release 12 hr 500 mg PO BID Qty: 180 3RF albuterol sulfate 90 mcg/actuation HFA aerosol inhaler 2 inh inhalation Q4H PRN (Reason: Shortness Of Breath) Rx Instructions: use with spacer tamsulosin 0.4 mg Capsule 0.4 mg PO DAILY 30 Days Qty: 30 0RF metoprolol tartrate 25 mg Tablet 25 mg PO BID 30 Days Qty: 60 0RF furosemide 40 mg tablet 40 mg PO BID 30 Days Qty: 60 0RF Eliquis 5 mg tablet 2.5 mg PO BID 30 Days Qty: 30 0RF potassium chloride 20 mEq tablet extended release 20 meq PO BID 30 Days Qty: 60 0RF Rx Instructions: with lasix carbidopa-levodopa 25-100 mg Tablet 0.5 ea PO TID PRN (Reason: Restless Leg Syndrome) Qty: 30 0RF triamcinolone acetonide 0.1 % cream 1 applic TOPICAL BID PRN (Reason: Skin Irritation) zolpidem 5 mg tablet 5 mg PO BEDTIME PRN (Reason: Sleep) Coding Level of Care Code ED [employer] Aide for Britany Oswald
--- NOTE | 2024-03-17 12:54 | P.HP_ITS ---
Providers/Chief Complaint 2 Admitting Physician: Guera Riggs MD Primary Care Provider: Gwen Sanon NP Chief Complaint: swelling legs History of Present Illness Steven Tee is a 88 year old male who has history of congestive heart failure, chronic kidney disease, BPH, chronic indwelling catheter, present to the hospital for worsening of purulent discharge from his left leg. Patient has been diagnosed with purulent cellulitis and acute on chronic kidney disease. Patient is stating that he has been emptying more than 1 L of urine, his urine catheter/Squires catheter will come out after 2 weeks his urologist is in [facility] he has not noticed any fever chest pain confusion, he is not endorsing any chest pain, no fever he is experiencing loose stools as well. He is extremely fatigued and lethargic endorsing generalized weakness for last 2 weeks. Has mild leukocytosis no sign of sepsis Patient is stating that he cannot lay still he has restless leg syndrome. Chest x-ray showing mild vascular congestion Review of Systems 2 Const: Reports: fatigue; Denies: fever(s) Eyes: Denies: change in vision ENMT: Denies: throat pain Card: Reports: swelling of feet/ankles; Denies: chest pain Resp: Reports: dyspnea GI: Reports: diarrhea; Denies: abdominal pain : Denies: flank pain Musc: Denies: neck pain Skin/Breast: Denies: rash Neuro: Denies: headache(s) Medications/Allergies Home Medications Medication Instructions Recorded Confirmed Last Taken Type atorvastatin 40 mg tablet 40 mg PO QPM 04/16/20 03/17/24 03/16/24 History diltiazem HCl 180 mg 180 mg PO DAILY 04/16/20 03/17/24 03/16/24 History capsule,extended release 24 hr (Cartia XT) finasteride 5 mg tablet 5 mg PO DAILY 04/16/20 03/17/24 03/16/24 History multivitamin 1 tab PO DAILY 04/16/20 03/17/24 03/16/24 History nitroglycerin 0.4 mg sublingual 0.4 mg sublingual Q5M PRN chest 02/11/21 03/17/24 03/09/24 Rx tablet (Nitrostat) pain #25 tabs omega-3 fatty acids 500 mg capsule 500 mg PO DAILY 09/04/22 03/17/24 03/16/24 History carbidopa 25 mg-levodopa 100 mg 0.5 ea PO TID PRN Restless Leg 06/18/23 03/17/24 01/12/24 Rx tablet Syndrome #30 tabs ropinirole 2 mg tablet 2 mg PO QPM 09/08/23 03/17/24 03/16/24 History clopidogrel 75 mg tablet 75 mg PO DAILY #90 tabs 09/09/23 03/17/24 03/17/24 Rx isosorbide mononitrate 30 mg 30 mg PO BID #180 tabs 10/22/23 03/17/24 03/17/24 Rx tablet,extended release 24 hr ranolazine 500 mg tablet,extended 500 mg PO BID #180 tabs 11/23/23 03/17/24 03/17/24 Rx release,12 hr albuterol sulfate 90 mcg/actuation 2 inh inhalation Q4H PRN Shortness 03/09/24 03/17/24 Unknown History aerosol inhaler Of Breath apixaban 5 mg tablet (Eliquis) 2.5 mg (1/2 x 5 mg) PO BID 30 days 03/12/24 03/17/24 03/16/24 Rx #30 tabs furosemide 40 mg tablet 40 mg PO BID 30 days #60 tabs 03/12/24 03/17/24 03/16/24 Rx metoprolol tartrate 25 mg tablet 25 mg PO BID 30 days #60 tabs 03/12/24 03/17/24 03/16/24 Rx potassium chloride 20 mEq 20 meq PO BID 30 days #60 tabs 03/12/24 03/17/24 03/16/24 Rx tablet,extended release tamsulosin 0.4 mg capsule 0.4 mg PO DAILY 30 days #30 caps 03/12/24 03/17/24 03/16/24 Rx triamcinolone acetonide 0.1 % 1 applic topical BID PRN Skin 03/17/24 03/17/24 Unknown History topical cream Irritation zolpidem 5 mg tablet 5 mg PO BEDTIME PRN Sleep 03/17/24 03/17/24 Unknown History Allergies Allergy/AdvReac Type Severity Reaction Status Date / Time No Known Allergies Allergy Verified 03/09/24 05:19 PFSH Acute 2 PFSH: Medical History Aortic stenosis Tobacco abuse Peripheral arterial disease SHARON (obstructive sleep apnea) History of sleep study (01/2021) severe obstructive sleep apnea, optimal pressure setting 6cm, with recommendation for auto-titrating CPAP 5-9 cm Sleep apnea Atherosclerosis of leg with intermittent claudication RLS (restless legs syndrome) History of cardioversion 03/16/2019 BPH (benign prostatic hyperplasia) Hyperlipidemia CAD (coronary artery disease) Unstable angina HTN (hypertension), benign Varicose veins of bilateral lower extremities with other complications Atrial fibrillation Diastolic CHF CKD (chronic kidney disease) Surgical History S/P coronary angiogram 04/29/2007 S/P carotid endarterectomy S/P AAA (abdominal aortic aneurysm) repair with [place] endograft S/P femoral-femoral bypass surgery S/P CABG (coronary artery bypass graft) 1988 X1, 2007 X2 Family History Brother Cancer CAD (coronary artery disease) Diabetes Mother Heart disease CAD (coronary artery disease) Diabetes Sister CAD (coronary artery disease) Denies family history of Clotting disorder Dementia Chronic kidney disease (CKD) Suicide Anesthesia complication Bleeding disorder Lung disease Stroke Social History Smoking and tobacco/nicotine status: current every day tobacco/nicotine user Alcohol intake: never Substance/Drug Use: never Lives independently: Yes Household members: spouse Marital status: Vitals/I&O/Wt Last Vital Signs Temp 97.9 F 03/17/24 09:29 Pulse 84 03/17/24 12:30 Resp 18 03/17/24 09:29 BP 130/72 03/17/24 12:00 Pulse Ox 98 03/17/24 12:30 O2 Del Method Room Air 03/17/24 09:29 Weight last 48 hrs Weight 81.647 kg Physical Exam 2 Narrative: Awake and alert Left leg purulent cellulitis Active sign of fluid overload S1, S2 variable Awake and alert Nonfocal neuroexam Bilateral breath sounds Currently doing well on room air Family is at the bedside Squires catheter in place Data 03/17/24 10:12 03/17/24 10:12 A&P Assessment and plan (1) Diastolic CHF: (2) Aortic stenosis: (3) Atrial fibrillation: Qualifiers: Atrial fibrillation type: persistent (not longstanding) Qualified Code(s): I48.19 - Other persistent atrial fibrillation (4) Varicose veins of bilateral lower extremities with other complications: (5) Peripheral arterial disease: (6) S/P femoral-femoral bypass surgery: (7) GODFREY (acute kidney injury): (8) CKD (chronic kidney disease): Qualifiers: Chronic kidney disease stage: stage 3 (moderate) Chronic kidney disease stage 3 subtype: stage 3a (GFR 45-59) Qualified Code(s): N18.31 - Chronic kidney disease, stage 3a (9) Cellulitis and abscess of left leg: (10) RLS (restless legs syndrome): Plan Purulent cellulitis left leg Start antibiotics No sign of sepsis Mild leukocytosis Acute diastolic CHF exacerbation Will give IV Lasix Generalized weakness related to above-mentioned reasons Acute on chronic kidney disease Swelling, with diuretics BPH with indwelling catheter Squires catheter, after 2 weeks at [facility] Full code Cardiac diet History of A-fib not currently in RVR continue Kemi Attestations 2 Medical Necessity Statement*: Anticipating discharge within 48 hours Diagnoses Diastolic CHF I50.30 Aortic stenosis I35.0 Persistent atrial fibrillation I48.19 Atrial fibrillation type: persistent (not longstanding) Varicose veins of bilateral lower extremities with other complications I83.893 Peripheral arterial disease I73.9 S/P femoral-femoral bypass surgery Z95.828 GODFREY (acute kidney injury) N17.9 Stage 3a chronic kidney disease N18.31 Chronic kidney disease stage: stage 3 (moderate) Chronic kidney disease stage 3 subtype: stage 3a (GFR 45-59) Cellulitis and abscess of left leg L03.116; L02.416 RLS (restless legs syndrome) G25.81
[2024-03-17] MEDS: vancomycin 1,000 MG in sodium chloride 0.9% 250 ML 250 MG IV (13:00)
[2024-03-17] MEDS: piperacillin-tazobactam 3.375 GM in sodium chloride 0.9% (plus) 50 ML IV ×2 (15:13→21:40)
[2024-03-17] MEDS: morphine IR 15 mg Tablet PO (15:13)
[2024-03-17] MEDS: FUROsemide 10 mg/mL SDV 10mL 60 MG IVP (15:13)
[2024-03-17] MEDS: carbidopa-levodopa 25-100mg Tablet 0.5 EACH PO (15:14)
[2024-03-17] MEDS: potassium chloride ER 20 mEq Tablet PO (18:27)
[2024-03-17] MEDS: metoprolol tartrate 25 mg Tablet PO (18:27)
[2024-03-17] MEDS: nicotine 14 mg Patch 1 PATCH TRANSDERMA (18:27)
[2024-03-17] MEDS: apixaban 5 mg Tablet 2.5 MG PO (18:28)
[2024-03-18] VITALS (9 sets, daily range): BP systolic 100–131; BP diastolic 55–79; PULSE 68–94; RESP 15–20; TEMP 36.4–36.8; O2SAT 90–96
[2024-03-18] MEDS: piperacillin-tazobactam 3.375 GM in sodium chloride 0.9% (plus) 50 ML IV (05:37)
[2024-03-18 05:45] LABS: Basophils % 0.3 %; Eosinophils # 0.2 10^3/uL (0.0-0.8); Eosinophils % 2.1 %; Hematocrit 41.8 % (37-53); Lymphocytes # 0.5 10^3/uL (0.8-4.8); Lymphocytes % 5.8 %; Mean Corpuscular HGB Conc 32.3 g/dL (30-55); Mean Corpuscular Hemoglobin 35.7 pg (27-33); Mean Corpuscular Volume 110.6 fl (82-101); Mean Platelet Volume 9.9 fL (7.4-10.4); Monocytes # 0.8 10^3/uL (0.2-0.9); Monocytes % 8.8 %; Neutrophils # 7.56 10^3/uL (1.8-7.7); Neutrophils % 82.2 %; Nucleated Red Blood Cells % 0 %; Platelet Count 134 10^3/cmm (157-399); Red Blood Count 3.78 10^6/uL (3.85-5.65); Red Cell Distribution Width 14.8 % (12.1-15.1); White Blood Count 9.19 10^3/uL (3.29-11.43)
[2024-03-18 06:05] LABS: Anion Gap 14.1 (5-19); Blood Urea Nitrogen 68 mg/dL (8-23); C Reactive Protein 151.1 mg/L (0.0-4.9); Calcium 8.8 mg/dL (8.5-10.5); Carbon Dioxide 27 mmol/L (22-29); Chloride 105 mmol/L (98-107); Creatinine Clr Calc Pharmacy 23.7283; Glucose 99 mg/dL (65-115); Magnesium 2.7 mg/dL (1.7-2.3); Osmolality Calculated 312 mOsm/kg (285-295); Phosphorus 4.5 mg/dL (2.5-4.5); Potassium 5.1 mmol/L (3.5-5.1); Sodium 141 mmol/L (136-145)
[2024-03-18] MEDS: ipratropium-albuterol 3 mL Neb INHALATION ×2 (08:09→19:58)
[2024-03-18] MEDS: apixaban 5 mg Tablet 2.5 MG PO ×2 (08:14→17:43)
[2024-03-18] MEDS: metoprolol tartrate 25 mg Tablet PO ×2 (08:14→18:10)
[2024-03-18] MEDS: tamsulosin 0.4 mg Capsule 0.400000000000000022 MG PO (08:14)
[2024-03-18] MEDS: potassium chloride ER 20 mEq Tablet PO ×2 (08:14→17:43)
[2024-03-18] MEDS: dilTIAZem ER (24HR) 180 mg Capsule PO (08:14)
[2024-03-18] MEDS: clopidogrel 75 mg Tablet PO (08:14)
[2024-03-18] MEDS: nicotine 14 mg Patch 1 PATCH TRANSDERMA (08:15)
--- NOTE | 2024-03-18 08:32 | ECG_ITS ---
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 Measurements Intervals [place] Rate: 94 P: 0 MI: 0 QRS: 106 QRSD: 168 T: -36 QT: 393 QTc: 493 Interpretive Statements ATRIAL FIBRILLATION RIGHT AXIS DEVIATION [QRS AXIS > 100] RIGHT BUNDLE BRANCH BLOCK [120+ ms QRS DURATION, UPRIGHT V1, 40+ ms S IN I/aVL/V4/V5/V6] ST DEPRESSION, CONSIDER SUBENDOCARDIAL INJURY [0.1+ mV ST DEPRESSION] Compared to ECG 03/17/2024 09:53:08 ST (T wave) deviation now present T-wave abnormality no longer present Possible ischemia no longer present Electronically Signed On 03-18-2024 14:27:31 CDT by Brant Sue M.D. [email or web address]
--- NOTE | 2024-03-18 09:00 | PC.NURSE ---
When doing shift change at 0700, pt denied having any discomfort. At 0830, pt states that he is very uncomfortable and having chest heaviness. He states that he does this in the morning if he has not received his heart medication at 5AM. EKG performed - baseline. Placed pt on tele. Heart medications given. Dr. Riggs ok'd changing time to 0500.
--- NOTE | 2024-03-18 12:09 | P.PN_ITS ---
Subjective 2 Subjective: Patient is stating that he is feeling slightly better He is sitting in a recliner Currently on room air Left leg is still weeping Will asked nurse for dressing change twice a day Patient was upset that he did not get his morning meds patient stating that he normally gets his meds at 5 AM and he started having chest discomfort/heaviness which improved after getting medication or 9 I have asked the nurse to give his medication on 5 in the morning Vitals/I&O/Wt Last Vital Signs Temp 97.6 F 03/18/24 07:40 Pulse 88 03/18/24 08:16 Resp 18 03/18/24 08:09 BP 131/79 03/18/24 07:40 Pulse Ox 93 03/18/24 08:09 O2 Del Method Room Air 03/18/24 08:09 03/17/24 03/18/24 03/18/24 22:59 06:59 14:59 Intake Total 540 / 540 170 / 710 290 / 290 Output Total 950 / 950 650 / 1600 550 / 550 Balance -410 / -410 -480 / -890 -260 / -260 Weight last 48 hrs Weight 87.226 kg Weight 81.647 kg Weight 81.647 kg Physical Exam 2 Narrative: Patient is sitting in a recliner Squires catheter draining urine GCS 15 Sign of fluid overload present however feeling slightly better than yesterday Currently on room air Hemodynamically stable S1, S2 Data 03/18/24 04:58 03/18/24 04:58 Micro: Microbiology 03/17/24 13:05 Blood Culture - Preliminary Blood SPECIMEN COLLECTED 03/17/24 12:34 Blood Culture - Preliminary Blood SPECIMEN COLLECTED A&P Assessment and plan (1) HTN (hypertension), benign: (2) Diastolic CHF: (3) Acute CHF: (4) Aortic stenosis: (5) Atrial fibrillation: Qualifiers: Atrial fibrillation type: persistent (not longstanding) Qualified Code(s): I48.19 - Other persistent atrial fibrillation (6) S/P CABG (coronary artery bypass graft): (7) CKD (chronic kidney disease): Qualifiers: Chronic kidney disease stage: stage 3 (moderate) Chronic kidney disease stage 3 subtype: stage 3a (GFR 45-59) Qualified Code(s): N18.31 - Chronic kidney disease, stage 3a (8) GODFREY (acute kidney injury): (9) Cellulitis and abscess of left leg: Plan Acute CHF exacerbation Continue IV Lasix Continue p.o. potassium supplementation Acute on chronic kidney disease BPH Continue IV Lasix Purulent cellulitis Continue antibiotic Dressing change twice a day with topical antibiotic Restless leg syndrome Continue ropinirole Full code Plan to discharge by tomorrow Cardiac diet Will give him wound care referral as well Attestations 2 Medical Necessity Statement*: Continue medical management Diagnoses HTN (hypertension), benign I10 Diastolic CHF I50.30 Acute CHF I50.9 Aortic stenosis I35.0 Persistent atrial fibrillation I48.19 Atrial fibrillation type: persistent (not longstanding) S/P CABG (coronary artery bypass graft) Z95.1 Stage 3a chronic kidney disease N18.31 Chronic kidney disease stage: stage 3 (moderate) Chronic kidney disease stage 3 subtype: stage 3a (GFR 45-59) GODFREY (acute kidney injury) N17.9 Cellulitis and abscess of left leg L03.116; L02.416
--- NOTE | 2024-03-18 13:37 | PC.NURSE ---
Dressing change to left lower leg completed. Educated pt and on how to change dressings.
[2024-03-18] MEDS: FUROsemide 10 mg/mL SDV 10mL 60 MG IVP (14:53)
[2024-03-18] MEDS: carbidopa-levodopa 25-100mg Tablet 0.5 EACH PO (17:42)
[2024-03-18] MEDS: ropinirole 2 mg Tablet PO (17:43)
--- NOTE | 2024-03-18 18:20 | PC.NURSE ---
Pt verbalizes frustration with medications not being scheduled when he takes them at home. Pt verbalizes that he takes a long pink slow-release nitro at home. Then states that he doesn't know if that is exactly what he takes or the exact dosage. is unable to answer phone calls at this time to confirm. Dr. Riggs states that we may order what he takes at home. This RN notifies charge nurse, and requests a full med rec with pharmacy first thing in the morning, with , to avoid future complications.
[2024-03-18] MEDS: ranolazine (12HR) 500 mg Tablet PO (20:46)
[2024-03-18] MEDS: zolpidem 5 mg Tablet PO (20:46)
[2024-03-18] MEDS: isosorbide mononitrate ER 30 mg Tablet PO (20:46)
[2024-03-19 04:00] VITALS: BP 116/69; PULSE 87; RESP 22; TEMP 36.4; O2SAT 93
[2024-03-19] MEDS: carbidopa-levodopa 25-100mg Tablet 0.5 EACH PO (05:20)
[2024-03-19] MEDS: ranolazine (12HR) 500 mg Tablet PO (05:20)
[2024-03-19] MEDS: metoprolol tartrate 25 mg Tablet PO (05:20)
[2024-03-19] MEDS: isosorbide mononitrate ER 30 mg Tablet PO (05:21)
[2024-03-19] MEDS: dilTIAZem ER (24HR) 180 mg Capsule PO (05:21)
[2024-03-19 06:14] LABS: Anion Gap 12.9 (5-19); Blood Urea Nitrogen 55 mg/dL (8-23); Calcium 8.2 mg/dL (8.5-10.5); Carbon Dioxide 27 mmol/L (22-29); Chloride 103 mmol/L (98-107); Creatinine Clr Calc Pharmacy 29.8937; Glucose 81 mg/dL (65-115); Osmolality Calculated 300 mOsm/kg (285-295); Potassium 4.9 mmol/L (3.5-5.1); Sodium 138 mmol/L (136-145)
[2024-03-19 07:45] VITALS: BP 121/71; PULSE 78; RESP 17; TEMP 36.7; O2SAT 93
--- NOTE | 2024-03-19 08:07 | PM.DCS ---
Discharge Providers Date of Admission: 03/17/24 12:21 Date of Discharge: March 19, 2024 Attending Provider at Admission: Guera Riggs MD Attending Provider at Discharge: Guera Riggs MD Primary Care Provider: Gwen Sanon NP Diagnoses at Discharge Discharge Diagnosis (1) HTN (hypertension), benign: Status: Acute (2) Diastolic CHF: Status: Acute (3) Acute CHF: Status: Acute (4) Aortic stenosis: Status: Acute (5) Atrial fibrillation: Status: Acute Qualifiers: Atrial fibrillation type: persistent (not longstanding) Qualified Code(s): I48.19 - Other persistent atrial fibrillation (6) S/P CABG (coronary artery bypass graft): Status: Acute Permanent problem details: 1988 X1, 2006 X2 (7) CKD (chronic kidney disease): Status: Acute Qualifiers: Chronic kidney disease stage: stage 3 (moderate) Chronic kidney disease stage 3 subtype: stage 3a (GFR 45-59) Qualified Code(s): N18.31 - Chronic kidney disease, stage 3a (8) GODFREY (acute kidney injury): Status: Acute (9) Cellulitis and abscess of left leg: Status: Acute Reason for Visit Reason for Visit: swelling legs Hospital Course Hospital Course 88-year-old male with history of congestive heart failure presented to hospital for purulent cellulitis of left leg, he was given IV antibiotics because of significant leukocytosis, his white count improved, dressing was changed twice a day by the nursing staff, he does have significant swelling of left leg he was given IV diuretics as well, patient is already on Eliquis low-dose for his chronic kidney disease and takes Lasix as well. I have asked him to follow-up with his wound care clinic once he is discharged from the hospital. Will prescribe him doxycycline at the time of discharge for next 5 days with topical antibiotic as well. Venous duplex negative for DVT, creatinine improved with use of diuretics. Patient has BPH, following up with urology at [facility] has indwelling catheter. Physical Exam Narrative: Awake and alert Currently on room air Left leg swelling slightly better Nonfocal neuroexam GCS 15 Pleasant cooperative Discharge Data Studies Completed and Pending Completed Studies During Hospitalization Category Date Time Status XR chest 1V portable [id number] Stat Exams 03/17/24 09:15 Completed US venous duplex lower extremity bilat [CV venous Ultrasound 03/17/24 09:14 [place] [id number]] Stat Pending at discharge Category Date Time Status Blood Culture Stat Lab 03/17/24 13:05 Results Radiology Impressions Chest X-Ray 03/17/24 09:15 IMPRESSION: Stable abnormal chest. Laboratory Results WBC 9.19 10^3/uL (3.29-11.43) 03/18/24 04:58 RBC 3.78 10^6/uL (3.85-5.65) L 03/18/24 04:58 Hgb 13.50 g/dL (11.27-16.99) 03/18/24 04:58 Hct 41.8 % (37-53) 03/18/24 04:58 MCV 110.6 fl (82-101) H 03/18/24 04:58 MCH 35.7 pg (27-33) H 03/18/24 04:58 MCHC 32.3 g/dL (30-55) 03/18/24 04:58 RDW 14.8 % (12.1-15.1) 03/18/24 04:58 Plt Count 134 10^3/cmm (157-399) L 03/18/24 04:58 MPV 9.9 fL (7.4-10.4) 03/18/24 04:58 Neut % (Auto) 82.2 % 03/18/24 04:58 Lymph % (Auto) 5.8 % 03/18/24 04:58 [place] % (Auto) 8.8 % 03/18/24 04:58 Eos % (Auto) 2.1 % 03/18/24 04:58 Baso % (Auto) 0.3 % 03/18/24 04:58 Neut # (Auto) 7.56 10^3/uL (1.8-7.7) 03/18/24 04:58 Lymph # (Auto) 0.5 10^3/uL (0.8-4.8) L 03/18/24 04:58 [place] # (Auto) 0.8 10^3/uL (0.2-0.9) 03/18/24 04:58 Eos # (Auto) 0.2 10^3/uL (0.0-0.8) 03/18/24 04:58 Baso # (Auto) 0.0 10^3/uL (0.0-0.1) 03/18/24 04:58 Nucleated RBC % (auto) 0 % 03/18/24 04:58 Nucleated RBCs # 0.0 /100WBC 03/18/24 04:58 Sodium 138 mmol/L (136-145) 03/19/24 05:14 Potassium 4.9 mmol/L (3.5-5.1) 03/19/24 05:14 Chloride 103 mmol/L (98-107) 03/19/24 05:14 Carbon Dioxide 27 mmol/L (22-29) 03/19/24 05:14 Anion Gap 12.9 (5-19) 03/19/24 05:14 BUN 55 mg/dL (8-23) H 03/19/24 05:14 Creatinine 1.9 mg/dL (0.7-1.2) H 03/19/24 05:14 GFR Calculation Not Reportable 03/19/24 05:14 Glucose 81 mg/dL (65-115) 03/19/24 05:14 Calculated Osmolality 300 mOsm/kg (285-295) H 03/19/24 05:14 Calcium 8.2 mg/dL (8.5-10.5) L 03/19/24 05:14 Phosphorus 4.5 mg/dL (2.5-4.5) 03/18/24 04:58 Magnesium 2.7 mg/dL (1.7-2.3) H 03/18/24 04:58 Total Bilirubin 0.7 mg/dL (0.15-1.2) 03/17/24 10:12 AST 21 U/L (0-40) 03/17/24 10:12 ALT 24 U/L (0-41) 03/17/24 10:12 Alkaline Phosphatase 121 U/L (40-130) 03/17/24 10:12 C-Reactive Protein 151.1 mg/L (0.0-4.9) H 03/18/24 04:58 NT-Pro-B Natriuret Pep 2533 pg/mL (0-450) H 03/17/24 10:12 Total Protein 6.2 g/dL (6.6-8.7) L 03/17/24 10:12 Albumin 3.1 g/dL (3.5-5.2) L 03/17/24 10:12 Globulin 3.1 g/dL (1.3-4.6) 03/17/24 10:12 Vitals Last Vital Signs Temp 98.0 F 03/19/24 07:45 Pulse 78 03/19/24 07:45 Resp 17 03/19/24 07:45 BP 121/71 03/19/24 07:45 Pulse Ox 93 03/19/24 07:45 O2 Del Method Room Air 03/19/24 07:45 Discharge Plan Discharge Patient Disposition: Home Condition: Stable Prescriptions: New doxycycline hyclate 100 mg tablet 100 mg PO BID 7 Days Qty: 14 0RF Neosporin-Pain Itch Scar 3.5-500-10,000 [id number] ointment 1 applic topical BID PRN (Reason: disinfection) Qty: 14.2 0RF Continued atorvastatin 40 mg tablet 40 mg PO QPM diltiazem HCl [Cartia XT] 180 mg capsule,extended release 24hr 180 mg PO DAILY finasteride 5 mg tablet 5 mg PO DAILY multivitamin Tablet 1 tab PO DAILY nitroglycerin [Nitrostat] 0.4 mg tablet, sublingual 0.4 mg SUBLINGUAL Q5M PRN (Reason: chest pain) Qty: 25 3RF Rx Instructions: do not exceed 3 doses per episode ropinirole 2 mg tablet 2 mg PO QPM omega-3 fatty acids 500 mg capsule 500 mg PO DAILY clopidogrel 75 mg tablet 75 mg PO DAILY Qty: 90 3RF isosorbide mononitrate 30 mg tablet extended release 24 hr 30 mg PO BID Qty: 180 3RF ranolazine 500 mg tablet extended release 12 hr 500 mg PO BID Qty: 180 3RF albuterol sulfate 90 mcg/actuation HFA aerosol inhaler 2 inh inhalation Q4H PRN (Reason: Shortness Of Breath) Rx Instructions: use with spacer tamsulosin 0.4 mg Capsule 0.4 mg PO DAILY 30 Days Qty: 30 0RF metoprolol tartrate 25 mg Tablet 25 mg PO BID 30 Days Qty: 60 0RF furosemide 40 mg tablet 40 mg PO BID 30 Days Qty: 60 0RF Eliquis 5 mg tablet 2.5 mg PO BID 30 Days Qty: 30 0RF potassium chloride 20 mEq tablet extended release 20 meq PO BID 30 Days Qty: 60 0RF Rx Instructions: with lasix carbidopa-levodopa 25-100 mg Tablet 0.5 ea PO TID PRN (Reason: Restless Leg Syndrome) Qty: 30 0RF triamcinolone acetonide 0.1 % cream 1 applic TOPICAL BID PRN (Reason: Skin Irritation) zolpidem 5 mg tablet 5 mg PO BEDTIME PRN (Reason: Sleep) Discharge Orders: Discharge Order (Routine); Ordered 03/19/24 Ordered By: Guera Riggs Referrals: Gwen Sanon NP [Primary Care Provider] - Patient Instructions: Opioid Safety Discharge Attestations Time Spent in Discharge Care*: less than 30 min Quality Metrics Clinical Quality Measures [ No reported AMI, CVA or VTE this stay] Coding Level of Care Code Acute Code for Chg Fwd Diagnoses HTN (hypertension), benign I10 Diastolic CHF I50.30 Acute CHF I50.9 Aortic stenosis I35.0 Persistent atrial fibrillation I48.19 Atrial fibrillation type: persistent (not longstanding) S/P CABG (coronary artery bypass graft) Z95.1 Stage 3a chronic kidney disease N18.31 Chronic kidney disease stage: stage 3 (moderate) Chronic kidney disease stage 3 subtype: stage 3a (GFR 45-59) GODFREY (acute kidney injury) N17.9 Cellulitis and abscess of left leg L03.116; L02.416
[2024-03-19] MEDS: clopidogrel 75 mg Tablet PO (08:45)
[2024-03-19] MEDS: potassium chloride ER 20 mEq Tablet PO (08:45)
[2024-03-19] MEDS: tamsulosin 0.4 mg Capsule 0.400000000000000022 MG PO (08:45)
[2024-03-19] MEDS: apixaban 5 mg Tablet 2.5 MG PO (08:45)
[2024-03-19 10:42] VITALS: BP 121/71; PULSE 78; RESP 17; TEMP 36.7; O2SAT 93
--- NOTE | 2024-03-19 10:43 | PC.NURSE ---
Discharge instructions provided to pt and his . Squires bag changed to leg bag per request. No questions or concerns voiced regarding discharge. Pt to private vehicle via wheelchair with all belongings.
== END 2024-03-19 10:46 | disposition home or self-care (01) ==
LOC: ER 11:26 → MEDSURG 12:36
PROVIDERS: Admitting Provider Internal Medicine; Emergency Provider Family Medicine; PCP Nurse Practitioner Family; Visit Provider Internal Medicine
DX: I13.0 Hypertensive heart and chronic kidney disease with heart failure and stage 1 through stage 4 chronic kidney disease, or unspecified chronic kidney disease (principal); N18.31 Chronic kidney disease, stage 3a; I50.30 Unspecified diastolic (congestive) heart failure; I35.0 Nonrheumatic aortic (valve) stenosis; I48.19 Other persistent atrial fibrillation; Z95.1 Presence of aortocoronary bypass graft; N17.9 Acute kidney failure, unspecified; L03.116 Cellulitis of left lower limb; L02.416 Cutaneous abscess of left lower limb; N40.0 Benign prostatic hyperplasia without lower urinary tract symptoms; E78.5 Hyperlipidemia, unspecified; I25.10 Atherosclerotic heart disease of native coronary artery without angina pectoris; F17.210 Nicotine dependence, cigarettes, uncomplicated
CPT/HCPCS: 36415; 71045; 80048; 80053; 83735; 83880; 84100; 85025; 86140; 87040; 93005; 93970; 94640; 96365; 96366; 96367; 99285; G0378; J1940; J2543; J3370; J7050

== ENCOUNTER → 2024-03-22 13:58 | Outpatient (BNVA) | payer MEDICARE, OTHER, SELFPAY | PROVIDERS: PCP Nurse Practitioner Family; Visit Provider Thoracic Surgery (Cardiothoracic Vascular Surgery) | DX: I96 Gangrene, not elsewhere classified (principal); I87.2 Venous insufficiency (chronic) (peripheral); L97.811 Non-pressure chronic ulcer of other part of right lower leg limited to breakdown of skin; L97.821 Non-pressure chronic ulcer of other part of left lower leg limited to breakdown of skin | CPT/HCPCS: 97597; 99213; A6252 ==

== ENCOUNTER → 2024-03-24 08:36 | Outpatient (BNVA) | payer MEDICARE, OTHER, SELFPAY | PROVIDERS: PCP Nurse Practitioner Family; Visit Provider Thoracic Surgery (Cardiothoracic Vascular Surgery) | DX: I87.2 Venous insufficiency (chronic) (peripheral) (principal); R60.9 Edema, unspecified | CPT/HCPCS: 99211; A6253 ==

== ENCOUNTER → 2024-03-29 15:12 | Outpatient (BNVA) | payer MEDICARE, OTHER, SELFPAY | PROVIDERS: PCP Nurse Practitioner Family; Visit Provider Thoracic Surgery (Cardiothoracic Vascular Surgery) | DX: I96 Gangrene, not elsewhere classified (principal); I87.2 Venous insufficiency (chronic) (peripheral); L97.811 Non-pressure chronic ulcer of other part of right lower leg limited to breakdown of skin; L97.821 Non-pressure chronic ulcer of other part of left lower leg limited to breakdown of skin; Z09 Encounter for follow-up examination after completed treatment for conditions other than malignant neoplasm | CPT/HCPCS: 97597; A6212 ==

== ENCOUNTER → 2024-04-05 14:10 | Outpatient (BNVA) | payer MEDICARE, OTHER, SELFPAY | PROVIDERS: PCP Nurse Practitioner Family; Visit Provider Thoracic Surgery (Cardiothoracic Vascular Surgery) | DX: Z09 Encounter for follow-up examination after completed treatment for conditions other than malignant neoplasm (principal); Z87.2 Personal history of diseases of the skin and subcutaneous tissue | CPT/HCPCS: 99212 ==

== ENCOUNTER 2024-04-06 07:19 | Emergency (ER) | payer MEDICARE, SELFPAY ==
[2024-04-06] VITALS (9 sets, daily range): BP systolic 92–125; BP diastolic 43–71; PULSE 66–89; RESP 22; TEMP 36.4; O2SAT 91–98; BMI 25.8
--- NOTE | 2024-04-06 07:26 | ECG_ITS ---
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 Measurements Intervals [place] Rate: 82 P: 0 GA: 0 QRS: -51 QRSD: 149 T: 115 QT: 418 QTc: 489 Interpretive Statements ATRIAL FIBRILLATION INTRAVENTRICULAR CONDUCTION DELAY [130+ ms QRS DURATION] MODERATE VOLTAGE CRITERIA FOR LVH, CONSIDER NORMAL VARIANT [MEETS CRITERIA IN ONE OF: R(aVL), S(V1), R(V5), R(V5/V6)+S(V1)] Compared to ECG 03/18/2024 08:32:18 Intraventricular conduction delay now present Right-axis deviation no longer present Right bundle-branch block no longer present ST (T wave) deviation no longer present Electronically Signed On 04-06-2024 18:10:48 CDT by José Luis Becker M.D. [id number]
--- NOTE | 2024-04-06 07:31 | XRR_ITS ---
PROCEDURE INFORMATION: Exam: XR Chest Exam date and time: 04/06/2024 7:45 AM Age: 89 years old Clinical indication: Shortness of breath; Additional info: SOB TECHNIQUE: Imaging protocol: Radiologic exam of the chest. Views: 1 view. COMPARISON: CR XR chest 1V portable [id number] 03/17/2024 10:00 AM FINDINGS: Lungs: Atelectatic changes in each lower lobe with minimal chronic opacity laterally on the right. Pleural spaces: Unremarkable. No pleural effusion. No pneumothorax. Heart/Mediastinum: See Vasculature finding. Vasculature: Moderate cardiomegaly and uncoiling of the thoracic aorta accentuated by the AP positioning. Bones/joints: Median sternotomy. Other findings: . XR/XR chest 1V portable [id number] IMPRESSION: No significant change.
[2024-04-06 07:55] LABS: Basophils % 0.5 %; Eosinophils # 0.2 10^3/uL (0.0-0.8); Hematocrit 32.4 % (37-53); Lymphocytes % 12.4 %; Mean Corpuscular HGB Conc 32.1 g/dL (30-55); Mean Corpuscular Hemoglobin 35.1 pg (27-33); Mean Corpuscular Volume 109.5 fl (82-101); Mean Platelet Volume 9.3 fL (7.4-10.4); Monocytes % 13.1 %; Neutrophils # 5.56 10^3/uL (1.8-7.7); Neutrophils % 69.9 %; Nucleated Red Blood Cells % 0 %; Platelet Count 190 10^3/cmm (157-399); Red Blood Count 2.96 10^6/uL (3.85-5.65); Red Cell Distribution Width 16.2 % (12.1-15.1); White Blood Count 7.96 10^3/uL (3.29-11.43)
[2024-04-06 08:14] LABS: Troponin(5th) Baseline 46 ng/L (0-15)
--- NOTE | 2024-04-06 08:35 | W.ED.SOB ---
HPI - SOB/Dyspnea General: Chief Complaint: Shortness of Breath/Dyspnea Stated Complaint: sob Time Seen by Provider: 04/06/24 07:34 Source: patient and family Mode of arrival: ambulatory Limitations: no limitations History of Present Illness: HPI Narrative: This patient returns to the emergency department because of increasing shortness of breath over the past few days. He also states he occasionally has episodes of chest pain which are unpredictable. He has a known history of CHF and was previously admitted because he had fluid overload in addition to lower urinary tract symptoms with poor bladder emptying. He was subsequently seen at the urologist in [place] who remove the catheter but he is unclear as if he is urinating to complete emptying of his bladder currently. He denies any fevers or chills. He has a concomitant cough which is sometimes productive of brown and sometimes clear mucus. He denies any fevers. He has a history of chronic atrial fibrillation. MD elicited complaint: shortness of breath and cough Pertinent past history: congestive heart failure Timing: progressively worsening Known history of: congestive heart failure Associated symptoms: Reports chest pain and cough; Deny abdominal pain, extremity pain, fever(s), nausea or vomiting Review of Systems Const: Denies: fever(s) or chills Eyes: Denies: change in vision ENMT: Denies: throat pain or odynophagia Card: Reports: chest pain and irregular heart rhythm Resp: Reports: dyspnea, productive cough and non-productive cough GI: Denies: abdominal pain, nausea or vomiting : Denies: flank pain or difficulty urinating Musc: Denies: neck pain, back pain or extremity pain Skin/Breast: Denies: rash or pruritus Neuro: Denies: headache(s), numbness in extremities or weakness in extremities Psych: Denies: anxiety [place]/Lymph: Reports: easy bruising [facility] ED PFSH: Medical History Cellulitis and abscess of left leg Diastolic CHF GODFREY (acute kidney injury) Acute CHF Aortic stenosis Tobacco abuse Peripheral arterial disease SHARON (obstructive sleep apnea) History of sleep study (01/2021) severe obstructive sleep apnea, optimal pressure setting 6cm, with recommendation for auto-titrating CPAP 5-9 cm Sleep apnea Atherosclerosis of leg with intermittent claudication RLS (restless legs syndrome) History of cardioversion 03/16/2019 BPH (benign prostatic hyperplasia) Hyperlipidemia CAD (coronary artery disease) Unstable angina HTN (hypertension), benign Varicose veins of bilateral lower extremities with other complications Atrial fibrillation Diastolic CHF CKD (chronic kidney disease) Surgical History S/P coronary angiogram 04/29/2007 S/P carotid endarterectomy S/P AAA (abdominal aortic aneurysm) repair with [place] endograft S/P femoral-femoral bypass surgery S/P CABG (coronary artery bypass graft) 1988 X1, 2007 X2 Family History Brother Cancer CAD (coronary artery disease) Diabetes Mother Heart disease CAD (coronary artery disease) Diabetes Sister CAD (coronary artery disease) Denies family history of Clotting disorder Dementia Chronic kidney disease (CKD) Suicide Anesthesia complication Bleeding disorder Lung disease Stroke Social History Smoking and tobacco/nicotine status: current every day tobacco/nicotine user Alcohol intake: never Substance/Drug Use: never Lives independently: Yes Household members: spouse Marital status: Physical Exam Narrative: EXAM NARRATIVE: Patient is in good spirits and alert. He does have audible wheezing with conversation. Const: COMMON NORMALS: patient oriented x3, no limitations and alert GENERAL APPEARANCE: cooperative NUTRITIONAL APPEARANCE: overweight HENMT: COMMON NORMALS: normocephalic, Normal nasal mucous membranes and turbinates present, moist oral mucous membranes and oropharynx normal HEAD & SCALP: normocephalic FACE & SINUS: normal facial exam NOSE: Normal nasal mucous membranes and turbinates present Eye: COMMON NORMALS: Equal, round and reactive pupils present, EOMs intact bilaterally and conjunctivae normal CONJUNCTIVA: Yes conjunctivae normal PUPIL: Yes Equal, round and reactive pupils present Neck/C-Spine: COMMON NORMALS: full ROM, no lymphadenopathy and no JVD Chest: COMMONS NORMALS: normal inspection of the chest Resp: COMMON NORMALS: normal respiratory effort EFFORT & INSPECTION: Yes audible wheezes AUSCULTATION: crackles and wheezes Cardio: COMMON NORMALS: no JVD, No murmurs present (Cardio) and Peripheral pulses 2+ throughout RHYTHM: abnormal rhythm irregularly irregular PERIPHERAL PULSES: Peripheral pulses 2+ throughout GI: COMMON NORMALS: Normal to inspection, nondistended, normoactive bowel sounds present INSPECTION: Yes central obesity : COMMON NORMALS: Yes no CVA tenderness BLADDER/KIDNEY EXAM: Yes no CVA tenderness Back/Pelvis: COMMON NORMALS: no CVA tenderness, thoracic and lumbar spine normal to inspection and no thoracic nor lumbar tenderness Extremity: COMMON NORMALS: normal to inspection, capillary refill normal, no calf tenderness and no pedal edema Neuro: COMMON NORMALS: patient oriented x3, moves all extremities, no focal motor deficits and no sensory deficits noted SENSORIUM/ORIENTATION: Yes alert Psych: COMMON NORMALS: mental status grossly normal Skin: COMMON NORMALS: no rashes or lesions noted and no petechiae NARRATIVE SKIN EXAM: Brawny bronze discoloration of both lower extremities no lesions or drainage. GENERAL SKIN EXAM: no rashes or lesions noted Course Reevaluation(s): Reevaluation #1: Patient subjectively feels better. Noted his hemoglobin that has fallen over the past 3 weeks. Patient states his stools have always been dark. He just not take iron but is on dual antiplatelet therapy currently. Rectal exam performed here revealed soft stool which was strongly guaiac positive. Serial troponins are not rising which is reassuring at this point. His bladder scan revealed the only had residual approximately 200 mL after spontaneous voiding. Certainly does not appear to be in acute retention. Time: 11:20 Reevaluation #2: Discussed recommendations with patient and spouse. Plan will be to stop his Plavix and reduce his Eliquis. Will also have him take an additional dose of basic Lasix for the next 5 days. And as well we will have him get a repeat blood count on Thursday of next week. They voiced understanding and were in agreement with the plan and comfortable with the plan. He is currently stable at this time without any evidence of ACS or other ongoing concerning conditions that need emergent observation admission etc. He has known coronary artery disease obviously and his most recent coronary artery catheterization recommendation was medical management only. No evidence at this time he needs to continue his Plavix as he has not had any recent stenting. His Eliquis will be reduced concomitant with his renal failure and age. Return precautions were reviewed. Time: 12:04 Consultations: Consultation #1: Reviewed current findings with Dr. Thomas to discuss dual antiplatelet therapy and possible reduction. Time: 11:51 Vital Signs: Vital signs: Vital Signs Temperature 97.6 F 05/ 07:28 Pulse Rate 66 05/22/24 11:01 Respiratory Rate 22 H 04/06/24 09:01 Blood Pressure 92/43 04/06/24 11:01 Pulse Oximetry 91 04/06/24 11:01 Oxygen Delivery Me thod Room Air 04/06/24 09:01 MDM - SOB/Dyspnea Medical Decision Making Patient with known chronic congestive heart failure, peripheral vascular disease, coronary disease, dual antiplatelet therapy comes in because he is felt a little more short of breath over the past few days. Known coronary disease which is not amenable to any further intervention per cardiology last recommendation. He was stable at the time of presentation and workup was initiated to ensure no evidence of acute ACS etc. He was noted to be in his controlled ventricular rate with his chronic atrial fibrillation. His troponins were monitored and they were nonchanging. His chest x-ray was unchanged. Of note is that his hemoglobin was approximately 2 and half to 3 g lower than it had been previously and recently. Guaiac positive stool is noted. Case was reviewed with attending hospitalist and we reviewed current medications and it was concomitantly decided to reduce his antiplatelet therapy put him on a PPI and follow him serially as if he was comfortable with that which he and his spouse were. He is being discharged in stable condition with medication changes affected. Lab Data I reviewed the patient's lab results. 04/06/24 07:43 04/06/24 07:43 Labs/Radiology: Radiology Impressions Chest X-Ray 04/06/24 07:31 IMPRESSION: No significant change. Laboratory Results WBC 7.96 10^3/uL (3.29-11.43) 04/06/24 07:43 RBC 2.96 10^6/uL (3.85-5.65) L 04/06/24 07:43 Hgb 10.40 g/dL (11.27-16.99) L 04/06/24 07:43 Hct 32.4 % (37-53) L 04/06/24 07:43 MCV 109.5 fl (82-101) H 04/06/24 07:43 MCH 35.1 pg (27-33) H 04/06/24 07:43 MCHC 32.1 g/dL (30-55) 04/06/24 07:43 RDW 16.2 % (12.1-15.1) H 04/06/24 07:43 Plt Count 190 10^3/cmm (157-399) 04/06/24 07:43 MPV 9.3 fL (7.4-10.4) 04/06/24 07:43 Neut % (Auto) 69.9 % 04/06/24 07:43 Lymph % (Auto) 12.4 % 04/06/24 07:43 [place] % (Auto) 13.1 % 04/06/24 07:43 Eos % (Auto) 2.0 % 04/06/24 07:43 Baso % (Auto) 0.5 % 04/06/24 07:43 Neut # (Auto) 5.56 10^3/uL (1.8-7.7) 04/06/24 07:43 Lymph # (Auto) 1.0 10^3/uL (0.8-4.8) 04/06/24 07:43 [place] # (Auto) 1.0 10^3/uL (0.2-0.9) H 04/06/24 07:43 Eos # (Auto) 0.2 10^3/uL (0.0-0.8) 04/06/24 07:43 Baso # (Auto) 0.0 10^3/uL (0.0-0.1) 04/06/24 07:43 Nucleated RBC % (auto) 0 % 04/06/24 07:43 Nucleated RBCs # 0.0 /100WBC 04/06/24 07:43 Sodium 135 mmol/L (136-145) L 04/06/24 07:43 Potassium 4.3 mmol/L (3.5-5.1) 04/06/24 07:43 Chloride 100 mmol/L (98-107) 04/06/24 07:43 Carbon Dioxide 24 mmol/L (22-29) 04/06/24 07:43 Anion Gap 15.3 (5-19) 04/06/24 07:43 BUN 68 mg/dL (8-23) H 04/06/24 07:43 Creatinine 2.5 mg/dL (0.7-1.2) H 04/06/24 07:43 GFR Calculation Not Reportable 04/06/24 07:43 Glucose 116 mg/dL (65-115) H 04/06/24 07:43 Calculated Osmolality 301 mOsm/kg (285-295) H 04/06/24 07:43 Calcium 8.1 mg/dL (8.5-10.5) L 04/06/24 07:43 Total Bilirubin 0.7 mg/dL (0.15-1.2) 04/06/24 07:43 AST 20 U/L (0-40) 04/06/24 07:43 ALT < 5 U/L (0-41) 04/06/24 07:43 Alkaline Phosphatase 108 U/L (40-130) 04/06/24 07:43 Troponin T Baseline 46 ng/L (0-15) H 04/06/24 07:43 Troponin T 120 Minute Cancelled 04/06/24 09:55 Delta Troponin T Cancelled 04/06/24 09:55 NT-Pro-B Natriuret Pep 1662 pg/mL (0-450) H 04/06/24 07:43 Total Protein 6.0 g/dL (6.6-8.7) L 04/06/24 07:43 Albumin 3.4 g/dL (3.5-5.2) L 04/06/24 07:43 Globulin 2.6 g/dL (1.3-4.6) 04/06/24 07:43 All radiology interpretation(s) finalized by discharge EKG Data EKG 1: I personally reviewed and interpreted this EKG as follows: Interpretation: Review of resting EKG reveals atrial fibrillation with a ventricular rate of 82 bpm. Normal QRS duration. Normal corrected QT interval. Essentially unchanged from prior tracings in this facility. EKG 2: I personally reviewed and interpreted this EKG as follows: Interpretation: Repeat EKG this visit reveals a ventricular rate of 64 bpm consistent with atrial fibrillation. QRS durations 100 normal QT corrected QT intervals normal. Has slight leftward axis no acute ST-T wave changes noted. Unchanged from previous tracing this visit. Discharge Plan Discharge Patient Disposition: Home Clinical Impression: Atrial fibrillation, chronic Congestive heart failure Qualifiers: Heart failure type: unspecified Heart failure chronicity: unspecified Qualified Code(s): I50.9 - Heart failure, unspecified Anemia Qualifiers: Anemia type: unspecified type Qualified Code(s): D64.9 - Anemia, unspecified Condition: Stable Prescriptions: New Eliquis 5 mg tablet 2.5 mg PO BID Qty: 30 2RF pantoprazole [Protonix] 40 mg tablet,delayed release (DR/EC) 40 mg PO BID 14 Days Qty: 28 0RF Discontinued clopidogrel 75 mg tablet 75 mg PO DAILY Qty: 90 3RF Eliquis 5 mg tablet 5 mg PO BID No Action atorvastatin 40 mg tablet 40 mg PO QPM diltiazem HCl [Cartia XT] 180 mg capsule,extended release 24hr 180 mg PO DAILY finasteride 5 mg tablet 5 mg PO DAILY multivitamin Tablet 1 tab PO DAILY nitroglycerin [Nitrostat] 0.4 mg tablet, sublingual 0.4 mg SUBLINGUAL Q5M PRN (Reason: chest pain) Qty: 25 3RF Rx Instructions: do not exceed 3 doses per episode ropinirole 2 mg tablet 2 mg PO QPM omega-3 fatty acids 500 mg capsule 500 mg PO DAILY isosorbide mononitrate 30 mg tablet extended release 24 hr 30 mg PO BID Qty: 180 3RF ranolazine 500 mg tablet extended release 12 hr 500 mg PO BID Qty: 180 3RF tamsulosin 0.4 mg Capsule 0.4 mg PO DAILY 30 Days Qty: 30 0RF metoprolol tartrate 25 mg Tablet 25 mg PO BID 30 Days Qty: 60 0RF furosemide 40 mg tablet 40 mg PO BID 30 Days Qty: 60 0RF potassium chloride 20 mEq tablet extended release 20 meq PO BID 30 Days Qty: 60 0RF Rx Instructions: with lasix carbidopa-levodopa 25-100 mg Tablet 0.5 ea PO TID PRN (Reason: Restless Leg Syndrome) Qty: 30 0RF triamcinolone acetonide 0.1 % cream 1 applic TOPICAL BID PRN (Reason: Skin Irritation) zolpidem 5 mg tablet 5 mg PO BEDTIME PRN (Reason: Sleep) Discharge Orders: Discharge ED (Routine); Ordered 04/06/24 Ordered By: Panchito Chavez Referrals: Gwen Sanon NP [Primary Care Provider] - Discharge Diet: Usual diet Discharge Activity: Increase activity as tolerated Patient Instructions: Opioid Safety, Pain Management Activity Restrictions/Additional Instructions: As we discussed we are making medication changes for the next few days. Take an additional Lasix in the early afternoon for the next 5 days and then go back to your usual dose of Lasix. Stop your Plavix or clopidogrel. We are reducing your Eliquis to half of your current dose which is going to be 2.5 mg twice daily. We have also added a stomach medicine to take twice daily for the next 2 weeks and then stop that medicine. Follow-up with your clinic on Thursday or Thursday to get a repeat blood count. If you develop any new or worsening symptoms you are welcome to return to the emergency department at any time for reevaluation. Coding Level of Care Code ED [facility] Packer for Britany Oswald
[2024-04-06 08:36] LABS: Alanine Aminotransferase < 5 U/L (0-41); Albumin Level 3.4 g/dL (3.5-5.2); Alkaline Phosphatase 108 U/L (40-130); Anion Gap 15.3 (5-19); Aspartate Amino Transferase 20 U/L (0-40); Blood Urea Nitrogen 68 mg/dL (8-23); Calcium 8.1 mg/dL (8.5-10.5); Carbon Dioxide 24 mmol/L (22-29); Chloride 100 mmol/L (98-107); Creatinine Clr Calc Pharmacy 22.5129; Globulin 2.6 g/dL (1.3-4.6); Glucose 116 mg/dL (65-115); NT Pro B Type Natriuretic Pept 1662 pg/mL (0-450); Osmolality Calculated 301 mOsm/kg (285-295); Potassium 4.3 mmol/L (3.5-5.1); Sodium 135 mmol/L (136-145); Total Bilirubin 0.7 mg/dL (0.15-1.2)
[2024-04-06] MEDS: ipratropium-albuterol 3 mL Neb INHALATION (08:56)
[2024-04-06] MEDS: FUROsemide 10 mg/mL SDV 4mL 40 MG IVP (09:09)
--- NOTE | 2024-04-06 09:31 | ECG_ITS ---
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 Measurements Intervals [place] Rate: 64 P: 0 [place]: 0 QRS: 110 QRSD: 150 T: -38 QT: 452 QTc: 469 Interpretive Statements ATRIAL FIBRILLATION INTRAVENTRICULAR CONDUCTION DELAY [130+ ms QRS DURATION] POSSIBLE RIGHT VENTRICULAR HYPERTROPHY [SOME/ALL OF: PROMINENT R IN V1, LATE TRANSITION, RAD, MARC, SSS] POSSIBLE INFERIOR MYOCARDIAL INFARCTION , OF INDETERMINATE AGE [30 ms Q WAVE IN II/aVF] Compared to ECG 04/06/2024 07:26:03 Myocardial infarct finding now present Electronically Signed On 04-07-2024 0:11:42 CDT by José Luis Becker M.D. [id number]
[2024-04-06 10:51] LABS: Troponin 5 2HR 42.56 ng/L (0-15)
[2024-04-06 10:53] LABS: Troponin 5 2HR Delta -3.44 ABS# (0-10)
== END 2024-04-06 12:35 | disposition home or self-care (01) ==
PROVIDERS: Emergency Provider Emergency Medicine; PCP Nurse Practitioner Family
DX: I48.20 Chronic atrial fibrillation, unspecified (principal); D64.9 Anemia, unspecified; Z72.0 Tobacco use; Z95.1 Presence of aortocoronary bypass graft; I25.10 Atherosclerotic heart disease of native coronary artery without angina pectoris; E78.5 Hyperlipidemia, unspecified; I13.0 Hypertensive heart and chronic kidney disease with heart failure and stage 1 through stage 4 chronic kidney disease, or unspecified chronic kidney disease; N18.9 Chronic kidney disease, unspecified; I50.9 Heart failure, unspecified
CPT/HCPCS: 36415; 71045; 80053; 83880; 84484; 85025; 93005; 94640; 96374; 99285; J1940

== ENCOUNTER 2024-04-18 11:25 | Observation (INO) | payer MEDICARE, OTHER, SELFPAY ==
[2024-04-18] VITALS (7 sets, daily range): BP systolic 91–154; BP diastolic 58–80; PULSE 86–97; RESP 16–32; TEMP 36.4–36.7; O2SAT 94–99; BMI 26.6
--- NOTE | 2024-04-18 11:35 | XRR_ITS ---
PROCEDURE INFORMATION: Exam: XR Chest Exam date and time: 04/18/2024 11:40 AM Age: 89 years old Clinical indication: Shortness of breath; Prior surgery; Surgery date: 6+ months; Surgery type: Cabg, aaa; Additional info: SOB TECHNIQUE: Imaging protocol: Radiologic exam of the chest. Views: 1 view. COMPARISON: CR XR chest 1V portable [id number] 04/06/2024 7:45 AM FINDINGS: Lungs: New small focal area of consolidation is seen in the right lateral base and a probable 2nd smaller focus in the right lateral lower lung field several cm above the basilar consolidation. Pleural spaces: Unremarkable. No pleural effusion. No pneumothorax. Heart/Mediastinum: Unremarkable. No cardiomegaly. Bones/joints: Sternal sutures are again seen. XR/XR chest 1V portable [id number] IMPRESSION: Small focal areas of consolidation are seen in the right lung as described above.
--- NOTE | 2024-04-18 11:52 | ED_ITS ---
HPI - SOB/Dyspnea 2 General: Chief Complaint: Shortness of Breath/Dyspnea Stated Complaint: sob Time Seen by Provider: 04/18/24 11:34 Source: patient Mode of arrival: ambulatory Limitations: no limitations History of Present Illness: HPI Narrative: 59-year-old male who has a history of CH F he is also a longtime smoker states that he has been having increasing shortness of breath over the last 3 to 4 days patient here is requiring 2 L at this time he is not on oxygen at home. He states he gets much more short of breath with exertion. He has been seen at wound care as well and has been treated for cellulitis. He denies any fever denies any chest pain. Associated symptoms: Deny abdominal pain, chest pain, fever(s), nausea or vomiting Review of Systems 2 Const: Denies: fever(s), chills, body aches or change in appetite ENMT: Denies: throat pain or dental pain Card: Denies: chest pain Resp: Reports: dyspnea and wheezing GI: Denies: abdominal pain, nausea, vomiting or diarrhea : Denies: dysuria Musc: Denies: neck pain or back pain Skin/Breast: Denies: rash Neuro: Denies: headache(s) PFSH ED 2 PFSH: Medical History Cellulitis and abscess of left leg Diastolic CHF GODFREY (acute kidney injury) Acute CHF Aortic stenosis Tobacco abuse Peripheral arterial disease SHARON (obstructive sleep apnea) History of sleep study (01/2021) severe obstructive sleep apnea, optimal pressure setting 6cm, with recommendation for auto-titrating CPAP 5-9 cm Sleep apnea Atherosclerosis of leg with intermittent claudication RLS (restless legs syndrome) History of cardioversion 03/16/2019 BPH (benign prostatic hyperplasia) Hyperlipidemia CAD (coronary artery disease) Unstable angina HTN (hypertension), benign Varicose veins of bilateral lower extremities with other complications Atrial fibrillation Diastolic CHF CKD (chronic kidney disease) Surgical History S/P coronary angiogram 04/29/2007 S/P carotid endarterectomy S/P AAA (abdominal aortic aneurysm) repair with [place] endograft S/P femoral-femoral bypass surgery S/P CABG (coronary artery bypass graft) 1988 X1, 2007 X2 Family History Brother Cancer CAD (coronary artery disease) Diabetes Mother Heart disease CAD (coronary artery disease) Diabetes Sister CAD (coronary artery disease) Denies family history of Clotting disorder Dementia Chronic kidney disease (CKD) Suicide Anesthesia complication Bleeding disorder Lung disease Stroke Social History Smoking and tobacco/nicotine status: current every day tobacco/nicotine user Alcohol intake: never Substance/Drug Use: never Lives independently: Yes Household members: spouse Marital status: Physical Exam 2 Const: COMMON NORMALS: patient oriented x3 GENERAL APPEARANCE: ill appearing HENMT: COMMON NORMALS: normocephalic and atraumatic HEAD & SCALP: n ormocephalic and atraumatic Neck/C-Spine: COMMON NORMALS: full ROM and supple Chest: COMMONS NORMALS: normal inspection of the chest Resp: EFFORT & INSPECTION: Yes tachypneic and Yes labored Cardio: COMMON NORMALS: regular rate and No murmurs present (Cardio) RATE: regular rate RHYTHM: abnormal rhythm irregularly irregular GI: COMMON NORMALS: Normal to inspection, nondistended, normoactive bowel sounds present, Soft to palpation, non-tender and no masses PALPATION: Yes Soft to palpation Extremity: COMMON NORMALS: normal to inspection and full ROM Neuro: COMMON NORMALS: patient oriented x3, moves all extremities and no focal motor deficits Psych: COMMON NORMALS: mental status grossly normal, Normal thought process present and cooperative THOUGHT PROCESS: Normal thought process present Skin: COMMON NORMALS: no rashes or lesions noted and no wounds GENERAL SKIN EXAM: no rashes or lesions noted Course 2 Vital Signs: Vital signs: Vital Signs Temperature 97.6 F 04/18/24 11:30 Pulse Rate 92 04/18/24 12:06 Respiratory Rate 18 04/18/24 12:06 Blood Pressure 91/65 04/18/24 11:30 Pulse Oximetry 99 04/18/24 12:06 Oxygen Delivery Me thod Nasal Cannula 04/18/24 12:06 Oxygen Flow Rate 2 04/18/24 12:06 MDM - SOB/Dyspnea Medical Decision Making Patient presents here with shortness of breath he has had exertional dyspnea with hypoxia with exertion with a history of CHF x-rays concerning for possible pneumonia spoke to the hospitalist will admit at this time start IV antibiotics follow-up blood cultures Medical Records I reviewed the patient's medical records. Lab Data I reviewed the patient's lab results. 04/18/24 11:52 04/18/24 11:52 Labs/Radiology: Radiology Impressions Chest X-Ray 04/18/24 11:35 IMPRESSION: Small focal areas of consolidation are seen in the right lung as described above. Laboratory Results WBC 8.91 10^3/uL (3.29-11.43) 04/18/24 11:52 RBC 2.89 10^6/uL (3.85-5.65) L 04/18/24 11:52 Hgb 10.10 g/dL (11.27-16.99) L 04/18/24 11:52 Hct 31.6 % (37-53) L 04/18/24 11:52 MCV 109.3 fl (82-101) H 04/18/24 11:52 MCH 34.9 pg (27-33) H 04/18/24 11:52 MCHC 32.0 g/dL (30-55) 04/18/24 11:52 RDW 16.5 % (12.1-15.1) H 04/18/24 11:52 Plt Count 221 10^3/cmm (157-399) 04/18/24 11:52 MPV 9.2 fL (7.4-10.4) 04/18/24 11:52 Neut % (Auto) 77.0 % 04/18/24 11:52 Lymph % (Auto) 9.3 % 04/18/24 11:52 [place] % (Auto) 11.4 % 04/18/24 11:52 Eos % (Auto) 0.9 % 04/18/24 11:52 Baso % (Auto) 0.3 % 04/18/24 11:52 Neut # (Auto) 6.85 10^3/uL (1.8-7.7) 04/18/24 11:52 Lymph # (Auto) 0.8 10^3/uL (0.8-4.8) 04/18/24 11:52 Fountain # (Auto) 1.0 10^3/uL (0.2-0.9) H 04/18/24 11:52 Eos # (Auto) 0.1 10^3/uL (0.0-0.8) 04/18/24 11:52 Baso # (Auto) 0.0 10^3/uL (0.0-0.1) 04/18/24 11:52 Nucleated RBC % (auto) 0 % 04/18/24 11:52 Nucleated RBCs # 0.0 /100WBC 04/18/24 11:52 PT 20.00 SECONDS (12.1-14.9) H 04/18/24 11:52 INR 1.64 (0.8-1.2) H 04/18/24 11:52 Specimen Type Arterial 04/18/24 11:41 Sample Site Radial, right 04/18/24 11:41 ABG pH 7.42 (7.35-7.45) 04/18/24 11:41 ABG pCO2 35.7 mmHg (35-45) 04/18/24 11:41 ABG pO2 97.6 mmHg (80.0-100.0) 04/18/24 11:41 ABG HCO3 22.9 mmol/L (22-26) 04/18/24 11:41 ABG Base Excess -1.3 mmol/L (-2.0-2.0) 04/18/24 11:41 Crispin Test Pos 04/18/24 11:41 Hematocrit 30.5 % (42-52) L 04/18/24 11:41 O2 Delivery Device Nc 04/18/24 11:41 O2 Liters/Min 2.0 % 04/18/24 11:41 Supervisor Farm Equipment Maintenance ID [place] 04/18/24 11:41 Sodium 136 mmol/L (136-145) 04/18/24 11:52 Potassium 4.6 mmol/L (3.5-5.1) 04/18/24 11:52 Chloride 101 mmol/L (98-107) 04/18/24 11:52 Carbon Dioxide 22 mmol/L (22-29) 04/18/24 11:52 Anion Gap 17.6 (5-19) 04/18/24 11:52 BUN 73 mg/dL (8-23) H 04/18/24 11:52 Creatinine 2.9 mg/dL (0.7-1.2) H 04/18/24 11:52 GFR Calculation Not Reportable 04/18/24 11:52 Glucose 101 mg/dL (65-115) 04/18/24 11:52 Calculated Osmolality 304 mOsm/kg (285-295) H 04/18/24 11:52 Lactic Acid 1.4 mmol/L (0.5-2.2) 04/18/24 11:52 Calcium 8.5 mg/dL (8.5-10.5) 04/18/24 11:52 Total Bilirubin 0.8 mg/dL (0.15-1.2) 04/18/24 11:52 AST 20 U/L (0-40) 04/18/24 11:52 ALT 8 U/L (0-41) 04/18/24 11:52 Alkaline Phosphatase 100 U/L (40-130) 04/18/24 11:52 NT-Pro-B Natriuret Pep 2372 pg/mL (0-450) H 04/18/24 11:52 Total Protein 6.0 g/dL (6.6-8.7) L 04/18/24 11:52 Albumin 3.7 g/dL (3.5-5.2) 04/18/24 11:52 Globulin 2.3 g/dL (1.3-4.6) 04/18/24 11:52 All radiology interpretation(s) finalized by discharge EKG Data EKG 1: I personally reviewed and interpreted this EKG as follows: EKG Interpretation Date: 04/18/24 EKG interpretation time: 12:08 Interpretation: afib hr [address] elevation qrs 140 qtc 442 Discharge Plan Discharge Patient Disposition: Admitted As Inpatient Clinical Impression: Community acquired pneumonia, Congestive heart failure Condition: Stable Prescriptions: No Action atorvastatin 40 mg tablet 40 mg PO QPM diltiazem HCl [Cartia XT] 180 mg capsule,extended release 24hr 180 mg PO QAM finasteride 5 mg tablet 5 mg PO QAM multivitamin Tablet 1 tab PO DAILY nitroglycerin [Nitrostat] 0.4 mg tablet, sublingual 0.4 mg SUBLINGUAL Q5M PRN (Reason: chest pain) Qty: 25 3RF Rx Instructions: do not exceed 3 doses per episode ropinirole 2 mg tablet 2 mg PO QPM omega-3 fatty acids 500 mg capsule 500 mg PO DAILY isosorbide mononitrate 30 mg tablet extended release 24 hr 30 mg PO BID Qty: 180 3RF ranolazine 500 mg tablet extended release 12 hr 500 mg PO BID Qty: 180 3RF furosemide 40 mg tablet 40 mg PO BID 30 Days Qty: 60 0RF potassium chloride 20 mEq tablet extended release 20 meq PO BID 30 Days Qty: 60 0RF Rx Instructions: with lasix clopidogrel 75 mg tablet 75 mg PO DAILY ciprofloxacin HCl 250 mg tablet 250 mg PO BID tamsulosin 0.4 mg capsule 0.4 mg PO QPM metoprolol tartrate 25 mg tablet 25 mg PO BID carbidopa-levodopa 25-100 mg Tablet 0.5 ea PO TID PRN (Reason: Restless Leg Syndrome) Qty: 30 0RF zolpidem 5 mg tablet 5 mg PO BEDTIME PRN (Reason: Sleep) Eliquis 5 mg tablet 2.5 mg PO BID Qty: 30 2RF Referrals: Gwen Sanon NEWSPAPER DELIVERY DRIVER [Primary Care Provider] - Coding Level of Care Code ED Field Trainer for Britany Oswald
[2024-04-18 11:59] LABS: Basophils % 0.3 %; Eosinophils # 0.1 10^3/uL (0.0-0.8); Eosinophils % 0.9 %; Hematocrit 31.6 % (37-53); Lymphocytes # 0.8 10^3/uL (0.8-4.8); Lymphocytes % 9.3 %; Mean Corpuscular Hemoglobin 34.9 pg (27-33); Mean Corpuscular Volume 109.3 fl (82-101); Mean Platelet Volume 9.2 fL (7.4-10.4); Monocytes % 11.4 %; Neutrophils # 6.85 10^3/uL (1.8-7.7); Nucleated Red Blood Cells % 0 %; Platelet Count 221 10^3/cmm (157-399); Red Blood Count 2.89 10^6/uL (3.85-5.65); Red Cell Distribution Width 16.5 % (12.1-15.1); White Blood Count 8.91 10^3/uL (3.29-11.43)
--- NOTE | 2024-04-18 12:08 | ECG_ITS ---
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 Measurements Intervals [place] Rate: 82 P: 0 [place]: 0 QRS: 114 QRSD: 140 T: -55 QT: 403 QTc: 473 Interpretive Statements ATRIAL FIBRILLATION INTRAVENTRICULAR CONDUCTION DELAY [130+ ms QRS DURATION] RIGHT VENTRICULAR HYPERTROPHY [SOME/ALL OF: PROMINENT R IN V1, LATE TRANSITION, RAD, MARC, SSS] Compared to ECG 04/06/2024 11:01:30 Myocardial infarct finding no longer present Electronically Signed On 04-18-2024 14:31:03 CDT by Jeremy Bee M.D. [id number]
[2024-04-18 12:13] LABS: INR 1.64 (0.8-1.2)
[2024-04-18 12:15] LABS: ABG PCO2 35.7 mmHg (35-45); ABG PH Result 7.42 (7.35-7.45); Arterial Blood Gas Hematocrit 30.5 % (42-52); Base Excess ABG -1.3 mmol/L (-2.0-2.0); Blood Gas Allen Test Pos; Blood Gas Operator Identificat WALCI; Blood Gas Sample Site Radial, right; Blood Gas Sample Type Arterial; HCO3 ABG 22.9 mmol/L (22-26); Oxygen Device NC; PO2 ABG 97.6 mmHg (80.0-100.0)
[2024-04-18] MEDS: ipratropium-albuterol 3 mL Neb INHALATION ×2 (12:18→21:10)
[2024-04-18 12:19] LABS: Lactic Sepsis W/Reflex 1.4 mmol/L (0.5-2.2)
[2024-04-18 12:30] LABS: Alanine Aminotransferase 8 U/L (0-41); Albumin Level 3.7 g/dL (3.5-5.2); Alkaline Phosphatase 100 U/L (40-130); Anion Gap 17.6 (5-19); Aspartate Amino Transferase 20 U/L (0-40); Blood Urea Nitrogen 73 mg/dL (8-23); Calcium 8.5 mg/dL (8.5-10.5); Carbon Dioxide 22 mmol/L (22-29); Chloride 101 mmol/L (98-107); Creatinine Clr Calc Pharmacy 19.0574; Globulin 2.3 g/dL (1.3-4.6); Glucose 101 mg/dL (65-115); NT Pro B Type Natriuretic Pept 2372 pg/mL (0-450); Osmolality Calculated 304 mOsm/kg (285-295); Potassium 4.6 mmol/L (3.5-5.1); Sodium 136 mmol/L (136-145); Total Bilirubin 0.8 mg/dL (0.15-1.2)
[2024-04-18] MEDS: cefTRIAXone 1,000 MG in sodium chloride 0.9% (plus) 50 ML 100 MG IV (13:22)
[2024-04-18] MEDS: methylPREDNISolone sod succ 125 mg/2 mL INJ IVP (13:22)
--- NOTE | 2024-04-18 13:36 | P.HP_ITS ---
Providers/Chief Complaint 2 Primary Care Provider: Gwen Sanon NP Chief Complaint: sob History of Present Illness Steven Tee is a 89 year old male who was discharged roughly 1 month ago after management of congestive heart failure and lower extremity cellulitis, patient has been following up with wound care, his wound was healing well until lately he bumped his leg and his wound opened up again, he has been noticing some yellow discharge, no fever, he has restless leg has been complaining of some pain in his legs. This morning patient was short of breath that prompted a visit to the ER he is requiring 2 L, he has been diagnosed with CHF exacerbation with possibility for pneumonia. He is complaining of chest pain 06/25 stating that he has been experiencing chest pain for last 1 month on and off, every time he takes nitroglycerin along utilizing another antianginal medications he gets better. As per the patient Dr. Martinez did the previous angiogram and he was deemed not a suitable candidate for PCI hence decision was made to manage him medically that is why he is on isosorbide and with nausea and antianginal medications Review of Systems 2 Const: Denies: fever(s) Eyes: Denies: change in vision ENMT: Denies: throat pain Card: Reports: chest pain, palpitations and swelling of feet/ankles Resp: Reports: dyspnea Medications/Allergies Home Medications Medication Instructions Recorded Confirmed Last Taken Type atorvastatin 40 mg tablet 40 mg PO QPM 04/16/20 04/18/24 04/17/24 History diltiazem HCl 180 mg 180 mg PO QAM 04/16/20 04/18/24 04/18/24 History capsule,extended release 24 hr (Cartia XT) finasteride 5 mg tablet 5 mg PO QAM 04/16/20 04/18/24 04/18/24 History multivitamin 1 tab PO DAILY 04/16/20 04/18/24 04/17/24 History nitroglycerin 0.4 mg sublingual 0.4 mg sublingual Q5M PRN chest 02/11/21 04/18/24 03/09/24 Rx tablet (Nitrostat) pain #25 tabs omega-3 fatty acids 500 mg capsule 500 mg PO DAILY 09/04/22 04/18/24 04/17/24 History carbidopa 25 mg-levodopa 100 mg 0.5 ea PO TID PRN Restless Leg 06/18/23 04/18/24 01/12/24 Rx tablet Syndrome #30 tabs ropinirole 2 mg tablet 2 mg PO QPM 09/08/23 04/18/24 04/17/24 History isosorbide mononitrate 30 mg 30 mg PO BID #180 tabs 10/22/23 04/18/24 04/18/24 Rx tablet,extended release 24 hr ranolazine 500 mg tablet,extended 500 mg PO BID #180 tabs 11/23/23 04/18/24 04/18/24 Rx release,12 hr furosemide 40 mg tablet 40 mg PO BID 30 days #60 tabs 03/12/24 04/18/24 04/18/24 Rx potassium chloride 20 mEq 20 meq PO BID 30 days #60 tabs 03/12/24 04/18/24 04/17/24 Rx tablet,extended release zolpidem 5 mg tablet 5 mg PO BEDTIME PRN Sleep 03/17/24 04/18/24 Unknown History apixaban 5 mg tablet (Eliquis) 2.5 mg (1/2 x 5 mg) PO BID #30 tabs 04/06/24 04/18/24 04/18/24 Rx ciprofloxacin HCl 250 mg tablet 250 mg PO BID 04/18/24 04/18/24 Unknown History clopidogrel 75 mg tablet 75 mg PO DAILY 04/18/24 04/18/24 Unknown History metoprolol tartrate 25 mg tablet 25 mg PO BID 04/18/24 04/18/24 Unknown History tamsulosin 0.4 mg capsule 0.4 mg PO QPM 04/18/24 04/18/24 04/17/24 History Allergies Allergy/AdvReac Type Severity Reaction Status Date / Time No Known Allergies Allergy Verified 04/06/24 07:32 PFSH Acute 2 PFSH: Medical History (Updated 04/18/24 @ 17:26 by Guera Riggs MD) CKD (chronic kidney disease) Cellulitis and abscess of left leg Diastolic CHF GODFREY (acute kidney injury) Acute CHF Aortic stenosis Tobacco abuse Peripheral arterial disease SHARON (obstructive sleep apnea) History of sleep study (01/2021) severe obstructive sleep apnea, optimal pressure setting 6cm, with recommendation for auto-titrating CPAP 5-9 cm Sleep apnea Atherosclerosis of leg with intermittent claudication RLS (restless legs syndrome) History of cardioversion 03/16/2019 BPH (benign prostatic hyperplasia) Hyperlipidemia CAD (coronary artery disease) Unstable angina HTN (hypertension), benign Varicose veins of bilateral lower extremities with other complications Atrial fibrillation Diastolic CHF Surgical History S/P coronary angiogram 04/29/2007 S/P carotid endarterectomy S/P AAA (abdominal aortic aneurysm) repair with [place] endograft S/P femoral-femoral bypass surgery S/P CABG (coronary artery bypass graft) 1988 X1, 2006 X2 Family History Brother Cancer CAD (coronary artery disease) Diabetes Mother Heart disease CAD (coronary artery disease) Diabetes Sister CAD (coronary artery disease) Denies family history of Clotting disorder Dementia Chronic kidney disease (CKD) Suicide Anesthesia complication Bleeding disorder Lung disease Stroke Social History Smoking and tobacco/nicotine status: current every day tobacco/nicotine user Alcohol intake: never Substance/Drug Use: never Lives independently: Yes Household members: spouse Marital status: Vitals/I&O/Wt Last Vital Signs Temp 97.6 F 04/18/24 11:30 Pulse 92 04/18/24 12:06 Resp 18 04/18/24 12:06 BP 91/65 04/18/24 11:30 Pulse Ox 99 04/18/24 12:06 O2 Del Method Nasal Cannula 04/18/24 12:06 O2 Flow Rate 2 04/18/24 12:06 Weight last 48 hrs Weight 81.647 kg Physical Exam 2 Narrative: Active signs of fluid overload Multiple petechiae bruises all lower extremities GCS 15 Currently on 2 L Bilateral breath sounds with mild rhonchi at the base Mild wheezing right lung base Nonfocal neuroexam Pleasant cough Right leg open wound with yellow discharge I do not see active sign of cellulitis Variable S1-S2 Data 04/18/24 11:52 04/18/24 11:52 Micro: Microbiology 04/18/24 12:35 Blood Culture - Preliminary Blood SPECIMEN COLLECTED 04/18/24 12:35 Blood Culture - Preliminary Blood SPECIMEN COLLECTED A&P Assessment and plan (1) Congestive heart failure: (2) Diastolic CHF: Qualifiers: Heart failure chronicity: chronic Qualified Code(s): I50.32 - Chronic diastolic (congestive) heart failure (3) Chest pain: Qualifiers: Chest pain type: precordial pain Qualified Code(s): R07.2 - Precordial pain (4) Atherosclerosis of leg with intermittent claudication: (5) S/P carotid endarterectomy: (6) S/P AAA (abdominal aortic aneurysm) repair: (7) Uses continuous positive airway pressure (CPAP) ventilation at home: (8) Community acquired pneumonia: (9) CKD (chronic kidney disease): Qualifiers: Chronic kidney disease stage: stage 3 (moderate) Chronic kidney disease stage 3 subtype: stage 3a (GFR 45-59) Qualified Code(s): N18.31 - Chronic kidney disease, stage 3a (10) Chronic stable angina: (11) Hypoxia: Plan Acute hypoxia related to CHF exacerbation and pneumonia Start antibiotics Start IV Lasix Currently on 2 L Mild wheezing noticed Deceived IV steroids in the ER Chronic angina Will give nitroglycerin I will keep him on IV morphine along ranolazine as well A-fib without RVR Continue Eliquis Continue diltiazem Full code goals of care discussed with the patient Lower leg open wound venous stasis dermatitis Check D-dimer Start doxycycline along ceftriaxone Cardiac diet Attestations 2 Medical Necessity Statement*: Anticipating discharge within 40 hours Diagnoses Congestive heart failure I50.9 Chronic diastolic congestive heart failure I50.32 Heart failure chronicity: chronic Precordial pain R07.2 Chest pain type: precordial pain Atherosclerosis of leg with intermittent claudication I70.219 S/P carotid endarterectomy Z98.890 S/P AAA (abdominal aortic aneurysm) repair Z98.890; Z86.79 Uses continuous positive airway pressure (CPAP) ventilation at home Z99.89 Community acquired pneumonia J18.9 Stage 3a chronic kidney disease N18.31 Chronic kidney disease stage: stage 3 (moderate) Chronic kidney disease stage 3 subtype: stage 3a (GFR 45-59) Chronic stable angina I20.89 Hypoxia R09.02
[2024-04-18] MEDS: azithromycin 500 MG in sodium chloride 0.9% 250 ML 250 MG IV (13:51)
[2024-04-18] MEDS: FUROsemide 10 mg/mL SDV 2mL 20 MG IVP (13:59)
[2024-04-18 14:45] LABS: Procalcitonin 0.12 ng/mL (0-0.5)
[2024-04-18] MEDS: nitroglycerin 0.4 mg sublingual Tablet 0.400000000000000022 MG SUBLINGUAL ×2 (17:44→18:09)
[2024-04-18] MEDS: ropinirole 2 mg Tablet PO (17:49)
[2024-04-18] MEDS: ranolazine (12HR) 500 mg Tablet PO (17:49)
[2024-04-18] MEDS: doxycycline 100 mg Tablet PO (17:49)
[2024-04-18] MEDS: apixaban 5 mg Tablet 2.5 MG PO (17:52)
[2024-04-18] MEDS: tamsulosin 0.4 mg Capsule 0.400000000000000022 MG PO (17:52)
[2024-04-18] MEDS: metoprolol tartrate 25 mg Tablet PO (17:52)
[2024-04-18] MEDS: zolpidem 5 mg Tablet PO (21:15)
[2024-04-18] MEDS: potassium chloride ER 20 mEq Tablet PO (21:15)
[2024-04-19] VITALS (8 sets, daily range): BP systolic 100–126; BP diastolic 59–88; PULSE 80–93; RESP 16–18; O2SAT 87–98
[2024-04-19] MEDS: carbidopa-levodopa 25-100mg Tablet 0.5 EACH PO (02:31)
[2024-04-19] MEDS: diphenhydrAMINE 25 mg Capsule PO (02:31)
[2024-04-19] MEDS: acetaminophen 500 mg Tablet PO (04:43)
[2024-04-19] MEDS: nitroglycerin 0.4 mg sublingual Tablet 0.400000000000000022 MG SUBLINGUAL ×2 (04:51→05:46)
[2024-04-19] MEDS: dilTIAZem ER (24HR) 180 mg Capsule PO (05:46)
[2024-04-19 06:14] LABS: Basophils % 0.1 %; Hematocrit 29.8 % (37-53); Lymphocytes # 0.3 10^3/uL (0.8-4.8); Lymphocytes % 3.2 %; Mean Corpuscular HGB Conc 32.2 g/dL (30-55); Mean Corpuscular Hemoglobin 35.7 pg (27-33); Mean Corpuscular Volume 110.8 fl (82-101); Mean Platelet Volume 9.6 fL (7.4-10.4); Monocytes # 0.1 10^3/uL (0.2-0.9); Monocytes % 1.2 %; Neutrophils # 8.63 10^3/uL (1.8-7.7); Neutrophils % 94.6 %; Nucleated Red Blood Cells % 0 %; Platelet Count 213 10^3/cmm (157-399); Red Blood Count 2.69 10^6/uL (3.85-5.65); Red Cell Distribution Width 16.3 % (12.1-15.1); White Blood Count 9.12 10^3/uL (3.29-11.43)
[2024-04-19 06:35] LABS: Blood Urea Nitrogen 78 mg/dL (8-23); Calcium 8.7 mg/dL (8.5-10.5); Carbon Dioxide 20 mmol/L (22-29); Chloride 101 mmol/L (98-107); Glucose 142 mg/dL (65-115); Magnesium 2.6 mg/dL (1.7-2.3); Osmolality Calculated 306 mOsm/kg (285-295); Phosphorus 6.1 mg/dL (2.5-4.5); Sodium 135 mmol/L (136-145)
[2024-04-19 06:41] LABS: Anion Gap 19.3 (5-19); Potassium 5.3 mmol/L (3.5-5.1)
[2024-04-19] MEDS: ipratropium-albuterol 3 mL Neb INHALATION (08:44)
[2024-04-19] MEDS: clopidogrel 75 mg Tablet PO (09:21)
[2024-04-19] MEDS: apixaban 5 mg Tablet 2.5 MG PO (09:21)
[2024-04-19] MEDS: doxycycline 100 mg Tablet PO (09:22)
[2024-04-19] MEDS: metoprolol tartrate 25 mg Tablet PO (09:22)
[2024-04-19] MEDS: ranolazine (12HR) 500 mg Tablet PO (09:22)
[2024-04-19] MEDS: FUROsemide 10 mg/mL SDV 4mL 40 MG IVP (09:28)
[2024-04-19] MEDS: cefTRIAXone 1,000 MG in sodium chloride 0.9% (plus) 50 ML 100 MG IV (09:38)
--- NOTE | 2024-04-19 11:22 | PM.DCS ---
Discharge Providers Date of Admission: 04/18/24 14:47 Date of Discharge: April 19, 2024 Attending Provider at Admission: Guera Riggs MD Attending Provider at Discharge: Guera Riggs MD Primary Care Provider: Gwen Sanon NP Diagnoses at Discharge Discharge Diagnosis (1) Congestive heart failure: Status: Acute (2) Diastolic CHF: Status: Acute Qualifiers: Heart failure chronicity: chronic Qualified Code(s): I50.32 - Chronic diastolic (congestive) heart failure (3) Chest pain: Status: Acute Qualifiers: Chest pain type: precordial pain Qualified Code(s): R07.2 - Precordial pain (4) Atherosclerosis of leg with intermittent claudication: Status: Acute (5) S/P carotid endarterectomy: Status: Acute (6) S/P AAA (abdominal aortic aneurysm) repair: Status: Acute Permanent problem details: with [place] endograft (7) Uses continuous positive airway pressure (CPAP) ventilation at home: Status: Chronic Permanent problem details: auto-titration 5-9cm (8) Community acquired pneumonia: Status: Acute (9) CKD (chronic kidney disease): Status: Chronic Qualifiers: Chronic kidney disease stage: stage 3 (moderate) Chronic kidney disease stage 3 subtype: stage 3a (GFR 45-59) Qualified Code(s): N18.31 - Chronic kidney disease, stage 3a (10) Chronic stable angina: Status: Acute (11) Hypoxia: Status: Acute Reason for Visit Reason for Visit: sob Hospital Course Hospital Course 89-year male who was admitted for management evaluation of possible pneumonia with underlying CHF exacerbation, he was given antibiotics, IV Lasix which improved his symptoms, he was on 2 L, at home does not use oxygen normally, patient is stating that he has chronic angina and takes nitroglycerin every time he gets chest pain, during hospitalization he required 2 nitroglycerin which improved his symptoms, patient has coronary disease which is not amenable for intervention, he is being managed medically, he takes Plavix and Eliquis at lower dose for his A-fib, he does have multiple petechia ecchymosis, I have asked him to discuss with his cash sales audit clerk regarding continuation of anticoagulating agent however he only has subcutaneous bleeding, hemoglobin has remained stable I do not think there is any contraindication at this point, patient's creatinine is at baseline, potassium is 5.3 however it is hemolyzed At the time of discharge we will do home oxygen evaluation will give him Augmentin and doxycycline for coverage of pneumonia and mild cellulitis of right lower extremity, he may resume his Lasix along potassium supplementation. Physical Exam Narrative: Awake and alert Right leg open wound without significant cellulitis Edema present Nonfocal neuroexam Pleasant cooperative Currently on 2 L No active cardiac wheezing Discharge Data Studies Completed and Pending Completed Studies During Hospitalization Category Date Time Status XR chest 1V portable [id number] Stat Exams 04/18/24 11:35 Completed Pending at discharge Category Date Time Status Blood Culture Stat Lab 04/18/24 12:35 Results Radiology Impressions Chest X-Ray 04/18/24 11:35 IMPRESSION: Small focal areas of consolidation are seen in the right lung as described above. Laboratory Results WBC 9.12 10^3/uL (3.29-11.43) 04/19/24 05:57 RBC 2.69 10^6/uL (3.85-5.65) L 04/19/24 05:57 Hgb 9.60 g/dL (11.27-16.99) L 04/19/24 05:57 Hct 29.8 % (37-53) L 04/19/24 05:57 MCV 110.8 fl (82-101) H 04/19/24 05:57 MCH 35.7 pg (27-33) H 04/19/24 05:57 MCHC 32.2 g/dL (30-55) 04/19/24 05:57 RDW 16.3 % (12.1-15.1) H 04/19/24 05:57 Plt Count 213 10^3/cmm (157-399) 04/19/24 05:57 MPV 9.6 fL (7.4-10.4) 04/19/24 05:57 Neut % (Auto) 94.6 % 04/19/24 05:57 Lymph % (Auto) 3.2 % 04/19/24 05:57 [place] % (Auto) 1.2 % 04/19/24 05:57 Eos % (Auto) 0.0 % 04/19/24 05:57 Baso % (Auto) 0.1 % 04/19/24 05:57 Neut # (Auto) 8.63 10^3/uL (1.8-7.7) H 04/19/24 05:57 Lymph # (Auto) 0.3 10^3/uL (0.8-4.8) L 04/19/24 05:57 [place] # (Auto) 0.1 10^3/uL (0.2-0.9) L 04/19/24 05:57 Eos # (Auto) 0.0 10^3/uL (0.0-0.8) 04/19/24 05:57 Baso # (Auto) 0.0 10^3/uL (0.0-0.1) 04/19/24 05:57 Nucleated RBC % (auto) 0 % 04/19/24 05:57 Nucleated RBCs # 0.0 /100WBC 04/19/24 05:57 PT 20.00 SECONDS (12.1-14.9) H 04/18/24 11:52 INR 1.64 (0.8-1.2) H 04/18/24 11:52 Specimen Type Arterial 04/18/24 11:41 Sample Site Radial, right 04/18/24 11:41 ABG pH 7.42 (7.35-7.45) 04/18/24 11:41 ABG pCO2 35.7 mmHg (35-45) 04/18/24 11:41 ABG pO2 97.6 mmHg (80.0-100.0) 04/18/24 11:41 ABG HCO3 22.9 mmol/L (22-26) 04/18/24 11:41 ABG Base Excess -1.3 mmol/L (-2.0-2.0) 04/18/24 11:41 Crispin Test Pos 04/18/24 11:41 Hematocrit 30.5 % (42-52) L 04/18/24 11:41 O2 Delivery Device Nc 04/18/24 11:41 O2 Liters/Min 2.0 % 04/18/24 11:41 Supervisor Shuttle Fitting ID [place] 04/18/24 11:41 Sodium 135 mmol/L (136-145) L 04/19/24 05:57 Potassium 5.3 mmol/L (3.5-5.1) H 04/19/24 05:57 Chloride 101 mmol/L (98-107) 04/19/24 05:57 Carbon Dioxide 20 mmol/L (22-29) L 04/19/24 05:57 Anion Gap 19.3 (5-19) H 04/19/24 05:57 BUN 78 mg/dL (8-23) H 04/19/24 05:57 Creatinine 2.7 mg/dL (0.7-1.2) H 04/19/24 05:57 GFR Calculation Not Reportable 04/19/24 05:57 Glucose 142 mg/dL (65-115) H 04/19/24 05:57 Calculated Osmolality 306 mOsm/kg (285-295) H 04/19/24 05:57 Lactic Acid 1.4 mmol/L (0.5-2.2) 04/18/24 11:52 Calcium 8.7 mg/dL (8.5-10.5) 04/19/24 05:57 Phosphorus 6.1 mg/dL (2.5-4.5) H 04/19/24 05:57 Magnesium 2.6 mg/dL (1.7-2.3) H 04/19/24 05:57 Total Bilirubin 0.8 mg/dL (0.15-1.2) 04/18/24 11:52 AST 20 U/L (0-40) 04/18/24 11:52 ALT 8 U/L (0-41) 04/18/24 11:52 Alkaline Phosphatase 100 U/L (40-130) 04/18/24 11:52 C-Reactive Protein 3.0 mg/L (0.0-4.9) 04/19/24 05:57 NT-Pro-B Natriuret Pep 2372 pg/mL (0-450) H 04/18/24 11:52 Total Protein 6.0 g/dL (6.6-8.7) L 04/18/24 11:52 Albumin 3.7 g/dL (3.5-5.2) 04/18/24 11:52 Globulin 2.3 g/dL (1.3-4.6) 04/18/24 11:52 Procalcitonin 0.12 ng/mL (0-0.5) 04/18/24 11:52 Vitals Last Vital Signs Temp 98.1 F 04/18/24 15:46 Pulse 89 04/19/24 08:44 Resp 16 04/19/24 08:44 BP 100/66 04/19/24 11:16 Pulse Ox 95 04/19/24 08:44 O2 Del Method Nasal Cannula 04/19/24 08:44 O2 Flow Rate 2 04/19/24 08:44 Discharge Plan Discharge Patient Disposition: Home Condition: Stable Prescriptions: New amoxicillin-pot clavulanate 875-125 mg tablet 1 tab PO BID Qty: 10 0RF bacitracin 500 unit/gram ointment 1 applic topical BID Qty: 14 0RF Continued atorvastatin 40 mg tablet 40 mg PO QPM diltiazem HCl [Cartia XT] 180 mg capsule,extended release 24hr 180 mg PO QAM finasteride 5 mg tablet 5 mg PO QAM multivitamin Tablet 1 tab PO DAILY nitroglycerin [Nitrostat] 0.4 mg tablet, sublingual 0.4 mg SUBLINGUAL Q5M PRN (Reason: chest pain) Qty: 25 3RF Rx Instructions: do not exceed 3 doses per episode ropinirole 2 mg tablet 2 mg PO QPM omega-3 fatty acids 500 mg capsule 500 mg PO DAILY isosorbide mononitrate 30 mg tablet extended release 24 hr 30 mg PO BID Qty: 180 3RF ranolazine 500 mg tablet extended release 12 hr 500 mg PO BID Qty: 180 3RF furosemide 40 mg tablet 40 mg PO BID 30 Days Qty: 60 0RF potassium chloride 20 mEq tablet extended release 20 meq PO BID 30 Days Qty: 60 0RF Rx Instructions: with lasix clopidogrel 75 mg tablet 75 mg PO DAILY tamsulosin 0.4 mg capsule 0.4 mg PO QPM metoprolol tartrate 25 mg tablet 25 mg PO BID carbidopa-levodopa 25-100 mg Tablet 0.5 ea PO TID PRN (Reason: Restless Leg Syndrome) Qty: 30 0RF zolpidem 5 mg tablet 5 mg PO BEDTIME PRN (Reason: Sleep) Eliquis 5 mg tablet 2.5 mg PO BID Qty: 30 2RF Discontinued ciprofloxacin HCl 250 mg tablet 250 mg PO BID Discharge Orders: Discharge Order (Routine); Ordered 04/19/24 Ordered By: Guera Riggs Referrals: Gwen Sanon NP [Primary Care Provider] - 04/25/24 11:30 am Discharge Diet: Cardiac Discharge Activity: Increase activity as tolerated Patient Instructions: Opioid Safety Discharge Attestations Time Spent in Discharge Care*: greater than 30 min Quality Metrics Clinical Quality Measures [ No reported AMI, CVA or VTE this stay] Coding Level of Care Code Acute Code for Chg Fwd Diagnoses Congestive heart failure I50.9 Chronic diastolic congestive heart failure I50.32 Heart failure chronicity: chronic Precordial pain R07.2 Chest pain type: precordial pain Atherosclerosis of leg with intermittent claudication I70.219 S/P carotid endarterectomy Z98.890 S/P AAA (abdominal aortic aneurysm) repair Z98.890; Z86.79 Uses continuous positive airway pressure (CPAP) ventilation at home Z99.89 Community acquired pneumonia J18.9 Stage 3a chronic kidney disease N18.31 Chronic kidney disease stage: stage 3 (moderate) Chronic kidney disease stage 3 subtype: stage 3a (GFR 45-59) Chronic stable angina I20.89 Hypoxia R09.02
== END 2024-04-19 13:46 | disposition home or self-care (01) ==
LOC: ER 13:40 → MEDSURG 15:24
PROVIDERS: Admitting Provider Internal Medicine; Emergency Provider Emergency Medicine; PCP Nurse Practitioner Family; Visit Provider Internal Medicine
DX: J44.1 Chronic obstructive pulmonary disease with (acute) exacerbation (principal); I50.32 Chronic diastolic (congestive) heart failure; I70.219 Atherosclerosis of native arteries of extremities with intermittent claudication, unspecified extremity; Z98.890 Other specified postprocedural states; Z86.79 Personal history of other diseases of the circulatory system; Z99.89 Dependence on other enabling machines and devices; J18.9 Pneumonia, unspecified organism; N18.31 Chronic kidney disease, stage 3a; I25.110 Atherosclerotic heart disease of native coronary artery with unstable angina pectoris; R09.02 Hypoxemia; Z79.02 Long term (current) use of antithrombotics/antiplatelets; Z79.01 Long term (current) use of anticoagulants; I48.91 Unspecified atrial fibrillation; G47.33 Obstructive sleep apnea (adult) (pediatric); N40.0 Benign prostatic hyperplasia without lower urinary tract symptoms; E78.5 Hyperlipidemia, unspecified; Z95.1 Presence of aortocoronary bypass graft; L03.115 Cellulitis of right lower limb
CPT/HCPCS: 36415; 71045; 80048; 80053; 82803; 83605; 83735; 83880; 84100; 84145; 85025; 85610; 86140; 87040; 93005; 94640; 94760; 96365; 96366; 96367; 96375; 96376; 99285; G0378; J0456; J0696; J1940; J2919; J7050

== ENCOUNTER → 2024-04-29 09:46 | Outpatient (BNVA) | payer MEDICARE, OTHER, SELFPAY | PROVIDERS: Visit Provider Thoracic Surgery (Cardiothoracic Vascular Surgery) | DX: I89.0 Lymphedema, not elsewhere classified (principal); L97.811 Non-pressure chronic ulcer of other part of right lower leg limited to breakdown of skin | CPT/HCPCS: 97597 ==

== ENCOUNTER → 2024-05-03 12:00 | Outpatient (BNVA) | payer MEDICARE, OTHER, SELFPAY | PROVIDERS: PCP Nurse Practitioner Family; Visit Provider Internal Medicine Cardiovascular Disease | DX: I25.10 Atherosclerotic heart disease of native coronary artery without angina pectoris (principal); L03.90 Cellulitis, unspecified; R60.0 Localized edema; Z72.0 Tobacco use; I13.0 Hypertensive heart and chronic kidney disease with heart failure and stage 1 through stage 4 chronic kidney disease, or unspecified chronic kidney disease; N18.9 Chronic kidney disease, unspecified; I50.33 Acute on chronic diastolic (congestive) heart failure | CPT/HCPCS: 99214 ==

== ENCOUNTER → 2024-05-06 08:49 | Outpatient (BNVA) | payer MEDICARE, OTHER, SELFPAY | PROVIDERS: PCP Nurse Practitioner Family; Visit Provider Thoracic Surgery (Cardiothoracic Vascular Surgery) | DX: Z09 Encounter for follow-up examination after completed treatment for conditions other than malignant neoplasm (principal); Z87.2 Personal history of diseases of the skin and subcutaneous tissue | CPT/HCPCS: 99212 ==

== ENCOUNTER 2024-05-09 09:09 | Inpatient (IN) | payer MEDICARE, OTHER, SELFPAY ==
[2024-05-09] VITALS (41 sets, daily range): BP systolic 74–139; BP diastolic 46–82; PULSE 62–109; RESP 14–31; TEMP 33.9–36.7; O2SAT 90–100; BMI 30.4
--- NOTE | 2024-05-09 09:41 | XRR_ITS ---
PROCEDURE INFORMATION: Exam: XR Chest Exam date and time: 05/09/2024 9:56 AM Age: 89 years old Clinical indication: Shortness of breath; Prior surgery; Surgery date: 6+ months; Surgery type: Open heart, aaa; Additional info: Weakness TECHNIQUE: Imaging protocol: Radiologic exam of the chest. Views: 1 view. COMPARISON: CR XR chest 1V portable [id number] 04/18/2024 11:40 AM FINDINGS: Lungs: See Pleural spaces finding. Pleural spaces: moderate right greater than left pleural effusion with adjacent right greater than left basilar consolidation versus atelectasis. Heart/Mediastinum: cardiomegaly. Bones/joints: prior sternotomy. XR/XR chest 1V portable [id number] IMPRESSION: Moderate right greater than left pleural effusion with adjacent right greater than left basilar consolidation versus atelectasis.
--- NOTE | 2024-05-09 09:44 | ECG_ITS ---
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 Measurements Intervals [place] Rate: 68 P: 0 DE: 0 QRS: 119 QRSD: 141 T: -87 QT: 430 QTc: 459 Interpretive Statements ATRIAL FIBRILLATION INTRAVENTRICULAR CONDUCTION DELAY [130+ ms QRS DURATION] RIGHT VENTRICULAR HYPERTROPHY [SOME/ALL OF: PROMINENT R IN V1, LATE TRANSITION, RAD, MARC, SSS] Compared to ECG 04/18/2024 12:08:30 No significant changes Electronically Signed On 05-09-2024 14:48:17 CDT by Jeremy Bee M.D. [id number]
--- NOTE | 2024-05-09 09:48 | W.ED.SOB ---
HPI - SOB/Dyspnea General: Chief Complaint: Shortness of Breath/Dyspnea Stated Complaint: Weak, low blood pressure, whising Time Seen by Provider: 05/09/24 09:12 History of Present Illness: HPI Narrative: 89-year-old man with a history of congestive heart failure, coronary artery disease on Plavix, chronic kidney disease, atrial fibrillation on Eliquis hypertension, BPH and chronic hypoxemic respiratory failure on 2 L nasal cannula at night who presents to the emergency room with weakness and shortness of breath. says he has had quite a bit of fluid weight gain over the last couple of weeks. He has orthopnea and sleeps in a recliner at all times. He is on oxygen at home at night. He has very coarse wheeze on presentation. He is very short of breath. He is tachypneic. Moderate increased work of breathing. He is also hypotensive on presentation. No known fevers. No chest pain. No altered mental status. No focal motor deficits. No abdominal pain. No nausea or vomiting. Review of Systems Narrative: Constitutional symptoms: Negative except as documented in HPI. Skin symptoms: Negative except as documented in HPI. Eye symptoms: Negative except as documented in HPI. ENMT symptoms: Negative except as documented in HPI. Respiratory symptoms: Negative except as documented in HPI. Cardiovascular symptoms: Negative except as documented in HPI. Gastrointestinal symptoms: Negative except as documented in HPI. Genitourinary symptoms: Negative except as documented in HPI. Musculoskeletal symptoms: Negative except as documented in HPI. Neurologic symptoms: Negative except as documented in HPI. Psychiatric symptoms: Negative except as documented in HPI. Endocrine symptoms: Negative except as documented in HPI. PFS ED PFSH: Medical History (Updated 05/09/24 @ 12:38 by Adeline Gotti MD) Lower extremity edema Hypoxia Chronic stable angina Congestive heart failure Community acquired pneumonia Chest pain Uses continuous positive airway pressure (CPAP) ventilation at home auto-titration 5-9cm CKD (chronic kidney disease) Cellulitis and abscess of left leg Diastolic CHF GODFREY (acute kidney injury) Acute CHF Aortic stenosis Tobacco abuse Peripheral arterial disease SHARON (obstructive sleep apnea) History of sleep study (01/2021) severe obstructive sleep apnea, optimal pressure setting 6cm, with recommendation for auto-titrating CPAP 5-9 cm Sleep apnea Atherosclerosis of leg with intermittent claudication RLS (restless legs syndrome) History of cardioversion 03/16/2019 BPH (benign prostatic hyperplasia) Hyperlipidemia CAD (coronary artery disease) Unstable angina HTN (hypertension), benign Varicose veins of bilateral lower extremities with other complications Atrial fibrillation Diastolic CHF Surgical History (Updated 04/20/24 @ 00:02 by ERIKA Chen) S/P coronary angiogram 04/29/2007 S/P carotid endarterectomy S/P AAA (abdominal aortic aneurysm) repair with [place] endograft S/P femoral-femoral bypass surgery S/P CABG (coronary artery bypass graft) 1988 X1, 2006 X2 Family History Brother Cancer CAD (coronary artery disease) Diabetes Mother Heart disease CAD (coronary artery disease) Diabetes Sister CAD (coronary artery disease) Denies family history of Clotting disorder Dementia Chronic kidney disease (CKD) Suicide Anesthesia complication Bleeding disorder Lung disease Stroke Social History Smoking and tobacco/nicotine status: current every day tobacco/nicotine user Alcohol intake: never Substance/Drug Use: never Lives independently: Yes Household members: spouse Marital status: Physical Exam Narrative: EXAM NARRATIVE: General: Alert, moderate distress. Skin: Warm, dry. Head: Normocephalic, atraumatic. Neck: Supple, trachea midline. Eye: Extraocular movements are intact. Ears, nose, mouth and throat: Oral mucosa moist. Cardiovascular: Regular rate and rhythm, Normal peripheral perfusion. Respiratory: coarse, scattered wheeze, moderate increased wob. tachypnea, prolonged expiratory phase. breath sounds are equal, Symmetrical chest wall expansion. Gastrointestinal: Soft, Nontender, Non distended, Normal bowel sounds. Musculoskeletal: Normal ROM, no deformity. Neurological: Alert and oriented to person, place, time, and situation, No focal neurological deficit observed. Psychiatric: Cooperative, appropriate mood & affect. Course Vital Signs: Vital signs: Vital Signs Temperature 98.1 F 05/09/24 09:23 Pulse Rate 63 05/09/24 12:27 Respiratory Rate 26 H 05/09/24 12:27 Blood Pressure 82/47 05/09/24 10:53 Pulse Oximetry 90 05/09/24 12:27 Oxygen Delivery Me thod Nasal Cannula 05/09/24 12:27 Oxygen Flow Rate 3 05/09/24 12:27 MDM - SOB/Dyspnea Medical Decision Making Differential diagnosis for patient with shortness of breath includes but is not limited to and based on the above HPI, review of systems and physical exam: Pneumonia. Bronchitis. Asthma or COPD with acute exacerbation. Acute coronary syndrome / NC. Pulmonary embolism. Anxiety. Congestive heart failure. Viral infections including influenza and Covid-19. Atrial fibrillation. Anxiety. Pleural effusion. Pneumothorax. Workup: Lab work, chest X-ray and EKG ordered to evaluate, rule in and rule out above pathologies EKG: Time 9:42 AM. Rate 68. Atrial fibrillation with controlled rate, No ST-T changes, no ectopy, This was reviewed and interpreted by myself the ER physician at 9:44 AM. I waited on the read of the chest x-ray before initiating antibiotics. Patient has an elevated white count and hypotension but lactate is low. He also has a low hemoglobin and worsening renal failure so was difficult to decide whether this is sepsis or if his low blood pressure was due to renal failure and anemia. X-ray read could not determine whether there was a infiltrate or atelectasis. There are effusions. I had ordered a lactate initially and I ordered blood cultures at this time. Chest x-ray: Cardiomegaly, sternotomy wires, pleural effusions, atelectasis versus infiltrate. This was reviewed and interpreted by myself the emergency room physician. I also reviewed the radiology report. Lab Review: Laboratory results were reviewed and interpreted by myself the emergency room physician. Patient has some leukocytosis with a white count of 12.5. Hemoglobin is significantly lower than previous at 7.1. BUN and creatinine are up at 99 and 3.4 from 70s and mid twos. I reviewed the patient's medical record. Consultation: I spoke with Dr. Gonzalez who is on-call for the hospitalist. She will admit the patient. Recommends initiation of Levophed. Reexamination: Patient remains slightly hypotensive. We are starting pressors. I am holding on fluids because I am ordering blood and his fluid status is questionable. No altered mental status. No focal motor deficits. He does state significant improvement with breathing treatments and has requested another. Assessment and plan: COPD with acute exacerbation Possible sepsis and pneumonia Acute on chronic renal insufficiency Hypotension Upper GI bleeding Chronic anticoagulation Acute blood loss anemia ?Patient had significant wheeze on presentation. This does not appear to be cardiac. He expresses improvement with breathing treatments. He has received 3 breathing treatments and IV Solu-Medrol. - holding on fluids. Patient is anemic and about to receive blood. He has worsening edema. -Broad-spectrum antibiotics were administered. Zyvox and meropenem -Sepsis quality measures. -Lactic acid with a reflex was ordered. -Blood cultures were ordered. ?IV Protonix and 2 units PRBCs ordered. He does report intermittent black stools. Has had issues with this in the past. -I discussed the patient with the hospitalist on-call who is admitting the patient. - Discussed findings and plan with patient. Answered any questions. - All laboratory values were reviewed and interpreted personally by myself, the ER physician - All imaging was reviewed and interpreted personally by myself, the ER physician. - Evaluation and treatment of this problem were appropriate in the emergency setting -I spent a total of >35 minutes of critical care time managing the patient, independent of any other practitioner. -The time involved in the performance of separately reportable procedures was not counted towards critical care time. Lab Data 05/09/24 09:58 05/09/24 09:58 Labs/Radiology: Radiology Impressions Chest X-Ray 05/09/24 09:41 IMPRESSION: Moderate right greater than left pleural effusion with adjacent right greater than left basilar consolidation versus atelectasis. Laboratory Results WBC 12.55 10^3/uL (3.29-11.43) H 05/09/24 09:58 RBC 2.18 10^6/uL (3.85-5.65) L 05/09/24 09:58 Hgb 7.10 g/dL (11.27-16.99) L 05/09/24 09:58 Hct 23.7 % (37-53) L 05/09/24 09:58 MCV 108.7 fl (82-101) H 05/09/24 09:58 MCH 32.6 pg (27-33) 05/09/24 09:58 MCHC 30.0 g/dL (30-55) 05/09/24 09:58 RDW 16.4 % (12.1-15.1) H 05/09/24 09:58 Plt Count 280 10^3/cmm (157-399) 05/09/24 09:58 MPV 9.8 fL (7.4-10.4) 05/09/24 09:58 Neut % (Auto) 85.8 % 05/09/24 09:58 Lymph % (Auto) 4.9 % 05/09/24 09:58 [place] % (Auto) 7.7 % 05/09/24 09:58 Eos % (Auto) 0.3 % 05/09/24 09:58 Baso % (Auto) 0.2 % 05/09/24 09:58 Neut # (Auto) 10.77 10^3/uL (1.8-7.7) H 05/09/24 09:58 Lymph # (Auto) 0.6 10^3/uL (0.8-4.8) L 05/09/24 09:58 [place] # (Auto) 1.0 10^3/uL (0.2-0.9) H 05/09/24 09:58 Eos # (Auto) 0.0 10^3/uL (0.0-0.8) 05/09/24 09:58 Baso # (Auto) 0.0 10^3/uL (0.0-0.1) 05/09/24 09:58 Nucleated RBC % (auto) 0 % 05/09/24 09:58 Nucleated RBCs # 0.0 /100WBC 05/09/24 09:58 Specimen Type Arterial 05/09/24 09:50 Sample Site Brachial, left 05/09/24 09:50 ABG pH 7.38 (7.35-7.45) 05/09/24 09:50 ABG pCO2 41.4 mmHg (35-45) 05/09/24 09:50 ABG pO2 104.0 mmHg (80.0-100.0) H 05/09/24 09:50 ABG PO2/FiO2 Ratio 0 05/09/24 09:50 ABG HCO3 24.7 mmol/L (22-26) 05/09/24 09:50 ABG O2 Saturation 99.5 05/09/24 09:50 ABG Base Excess -0.4 mmol/L (-2.0-2.0) 05/09/24 09:50 Crispin Test N/a 05/09/24 09:50 A-a O2 Gradient 13.1 mmHg (5-10) H 05/09/24 09:50 Hematocrit 22.1 % (42-52) L 05/09/24 09:50 Hgb O2 Saturation 95.5 % (95-100) 05/09/24 09:50 Carboxyhemoglobin 3.7 %THgb (0.4-20.1) 05/09/24 09:50 Methemoglobin 0.4 % (0.4-1.5) 05/09/24 09:50 Total Hemoglobin 7.2 g/dL (14-18) L 05/09/24 09:50 Sodium 132.0 mmol/L (131-143) 05/09/24 09:50 Potassium 4.7 mmol/L (3.5-5.0) 05/09/24 09:50 Glucose 97.0 mg/dL (70-115) 05/09/24 09:50 Ionized Calcium 1.2 mmol/L (1.1-1.4) 05/09/24 09:50 O2 Delivery Device Nc 05/09/24 09:50 O2 Liters/Min 4.0 % 05/09/24 09:50 FiO2 36.0 % 05/09/24 09:50 Coat Hanger Shaper Machine Operator ID [facility]h 05/09/24 09:50 Sodium 134 mmol/L (136-145) L 05/09/24 09:58 Potassium 5.2 mmol/L (3.5-5.1) H 05/09/24 09:58 Chloride 97 mmol/L (98-107) L 05/09/24 09:58 Carbon Dioxide 24 mmol/L (22-29) 05/09/24 09:58 Anion Gap 18.2 (5-19) 05/09/24 09:58 BUN 99 mg/dL (8-23) H* 05/09/24 09:58 Creatinine 3.4 mg/dL (0.7-1.2) H 05/09/24 09:58 GFR Calculation Not Reportable 05/09/24 09:58 Glucose 90 mg/dL (65-115) 05/09/24 09:58 Calculated Osmolality 308 mOsm/kg (285-295) H 05/09/24 09:58 Lactic Acid 1.6 mmol/L (0.5-2.2) 05/09/24 09:58 Calcium 8.2 mg/dL (8.5-10.5) L 05/09/24 09:58 Total Bilirubin 0.6 mg/dL (0.15-1.2) 05/09/24 09:58 AST 18 U/L (0-40) 05/09/24 09:58 ALT < 5 U/L (0-41) 05/09/24 09:58 Alkaline Phosphatase 98 U/L (40-130) 05/09/24 09:58 Troponin T Baseline 74 ng/L (0-15) H 05/09/24 09:58 C-Reactive Protein 26.9 mg/L (0.0-4.9) H 05/09/24 09:58 NT-Pro-B Natriuret Pep 2199 pg/mL (0-450) H 05/09/24 09:58 Total Protein 5.3 g/dL (6.6-8.7) L 05/09/24 09:58 Albumin 3.2 g/dL (3.5-5.2) L 05/09/24 09:58 Globulin 2.1 g/dL (1.3-4.6) 05/09/24 09:58 Blood Type O Positive 05/09/24 10:17 Rho(D) Type Rh positive 05/09/24 10:17 Antibody Screen Negative 05/09/24 10:17 Crossmatch See Detail 05/09/24 10:17 All radiology interpretation(s) finalized by discharge Discharge Plan Discharge Patient Disposition: Admitted As Inpatient Clinical Impression: COPD with acute exacerbation, Pneumonia, Acute blood loss anemia, Chronic anticoagulation, Acute on chronic renal failure, Acute upper GI bleed Condition: Stable Coding Level of Care Code ED Refinery Operator Reforming Unit for Britany Oswald
[2024-05-09] MEDS: albuterol 2.5 mg/3 mL Neb INHALATION ×2 (09:50→12:26)
[2024-05-09] MEDS: ipratropium-albuterol 3 mL Neb INHALATION ×3 (09:50→20:05)
[2024-05-09 10:01] LABS: ABG PCO2 41.4 mmHg (35-45); ABG PH Result 7.38 (7.35-7.45); Alveolar-Arterial Oxygen Gradi 13.1 mmHg (5-10); Arterial Blood Gas Hematocrit 22.1 % (42-52); Base Excess ABG -0.4 mmol/L (-2.0-2.0); Blood Gas Operator Identificat AMH; Blood Gas Sample Site Brachial, left; Blood Gas Sample Type Arterial; Carboxyhemoglobin 3.7 %THgb (0.4-20.1); HCO3 ABG 24.7 mmol/L (22-26); HGB O2 Sat 95.5 % (95-100); Ionized Calcium Level - ABG 1.2 mmol/L (1.1-1.4); Methemoglobin 0.4 % (0.4-1.5); Oxygen Device NC; Oxygen Saturation ABG 99.5; PO2 FiO2 Ratio Arterial Blood 0; Potassium Level - ABG 4.7 mmol/L (3.5-5.0); Total Hemoglobin 7.2 g/dL (14-18)
[2024-05-09 10:07] LABS: Basophils % 0.2 %; Eosinophils % 0.3 %; Hematocrit 23.7 % (37-53); Lymphocytes # 0.6 10^3/uL (0.8-4.8); Lymphocytes % 4.9 %; Mean Corpuscular Hemoglobin 32.6 pg (27-33); Mean Corpuscular Volume 108.7 fl (82-101); Mean Platelet Volume 9.8 fL (7.4-10.4); Monocytes % 7.7 %; Neutrophils # 10.77 10^3/uL (1.8-7.7); Neutrophils % 85.8 %; Nucleated Red Blood Cells % 0 %; Platelet Count 280 10^3/cmm (157-399); Red Blood Count 2.18 10^6/uL (3.85-5.65); Red Cell Distribution Width 16.4 % (12.1-15.1); White Blood Count 12.55 10^3/uL (3.29-11.43)
[2024-05-09 10:22] LABS: Lactic Sepsis W/Reflex 1.6 mmol/L (0.5-2.2)
[2024-05-09] MEDS: methylPREDNISolone sod succ 125 mg/2 mL INJ IVP (10:22)
[2024-05-09 10:24] LABS: Troponin(5th) Baseline 74 ng/L (0-15)
[2024-05-09 10:49] LABS: Alanine Aminotransferase < 5 U/L (0-41); Albumin Level 3.2 g/dL (3.5-5.2); Alkaline Phosphatase 98 U/L (40-130); Anion Gap 18.2 (5-19); Aspartate Amino Transferase 18 U/L (0-40); C Reactive Protein 26.9 mg/L (0.0-4.9); Calcium 8.2 mg/dL (8.5-10.5); Carbon Dioxide 24 mmol/L (22-29); Chloride 97 mmol/L (98-107); Creatinine Clr Calc Pharmacy 16.7416; Globulin 2.1 g/dL (1.3-4.6); Glucose 90 mg/dL (65-115); NT Pro B Type Natriuretic Pept 2199 pg/mL (0-450); Osmolality Calculated 308 mOsm/kg (285-295); Potassium 5.2 mmol/L (3.5-5.1); Sodium 134 mmol/L (136-145); Total Bilirubin 0.6 mg/dL (0.15-1.2); Total Protein 5.3 g/dL (6.6-8.7)
[2024-05-09 10:56] LABS: Blood Urea Nitrogen 99 mg/dL (8-23)
[2024-05-09] MEDS: pantoprazole 40 mg SDV 80 MG IVP (11:20)
--- NOTE | 2024-05-09 11:35 | ECG_ITS ---
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 Measurements Intervals [place] Rate: 73 P: 0 NM: 0 QRS: 114 QRSD: 163 T: -26 QT: 454 QTc: 502 Interpretive Statements ATRIAL FIBRILLATION RIGHT AXIS DEVIATION [QRS AXIS > 100] RIGHT BUNDLE BRANCH BLOCK [120+ ms QRS DURATION, UPRIGHT V1, 40+ ms S IN I/aVL/V4/V5/V6] Compared to ECG 05/09/2024 09:42:21 Right-axis deviation now present Right bundle-branch block now present Intraventricular conduction delay no longer present Atrial abnormality no longer present Right ventricular hypertrophy no longer present Electronically Signed On 05-09-2024 14:50:54 CDT by Jeremy Bee M.D. [id number]
[2024-05-09] MEDS: meropenem 500 MG in sodium chloride 0.9% (plus) 50 ML 100 MG IV ×2 (12:21→20:58)
[2024-05-09] MEDS: linezolid premix 600 MG/300 ML PREMIX 300 MG IV (12:23)
[2024-05-09 12:42] LABS: Adenovirus Not Detected (NOT DETECT); Chlamydia Pneumoniae Not Detected (NOT DETECT); Coronavirus 229E,HKU1,NL63,OC4 Not Detected (NOT DETECT); Human Metapneumovirus Not Detected (NOT DETECT); Human Rhinovirus/Enterovirus Not Detected (NOT DETECT); Influenza A Not Detected (NOT DETECT); Influenza A H1 Not Detected (NOT DETECT); Influenza A H1-2009 Not Detected (NOT DETECT); Influenza A H3 Not Detected (NOT DETECT); Influenza B Not Detected (NOT DETECT); Mycoplasma Pneumoniae Not Detected (NOT DETECT); Parainfluenza Virus Type 1 Not Detected (NOT DETECT); Parainfluenza Virus Type 2 Not Detected (NOT DETECT); Parainfluenza Virus Type 3 Not Detected (NOT DETECT); Parainfluenza Virus Type 4 Not Detected (NOT DETECT); Respiratory Syncytial Virus A Not Detected (NOT DETECT); Respiratory Syncytial Virus B Not Detected (NOT DETECT); SARS-COV-2 Not Detected (NOT DETECT)
--- NOTE | 2024-05-09 12:47 | P.HP_ITS ---
Providers/Chief Complaint 2 Admitting Physician: Mehnaz Gonzalez MD Primary Care Provider: Gwen Sanon NP Chief Complaint: Weak, low blood pressure, whising History of Present Illness Steven Tee is a 89 year old male who presented to the emergency room with chief complaint of weakness and low blood pressure along with difficulty breathing. He has had several hospitalizations since February of this year with similar presentations. He has known history of coronary artery disease with angina managed by isosorbide and Ranexa. No recent chest pain. Other pertinent history includes ongoing tobacco use, COPD, atrial fibrillation on diltiazem and Eliquis, mild aortic stenosis, chronic kidney disease, peripheral arterial disease among others noted below. He has had gradual decline throughout the year this year in his functional status. Reviewing records available, patient was hospitalized from March 09 through March 12. At that time he was having chest pain in addition to significant volume overload. He was diuresed with improvement in volume status and renal function. Attempt was made to initiate beta-blockade in the form of metoprolol tartrate 25 mg twice a day. He tolerated this well in the hospital but upon discharge began having hypotension with systolic blood pressures into the 70s and 80s and ultimately the metoprolol was stopped. I will note that losartan was also discontinued at that visit however subsequently resumed. Patient was also being treated with steroids when metoprolol was initiated. He has not taken any metoprolol for some time because of the hypotension but has continued taking isosorbide, diltiazem, Ranexa, Lasix - which was increased to twice daily dosing at the same hospital stay - along with losartan. Earlier this month he was noted to have elevated potassium levels and potassium supplementation was stopped by his primary care provider. He was also prescribed 3 days of metolazone 2.5 mg beginning on April 28. He does take these as prescribed. Despite this he has continued to have increasing edema and now significant weeping from his lower extremities. He has gained about 15 pounds over the last few weeks or so predominantly from increasing fluid. He has had some chills but no definitive fevers the last 24 to 48 hours. He has been wheezing for about a week. The wheezing is similar to what he experienced at the beginning of this month when he was diagnosed with pneumonia and treated with antibiotics. He was discharged on Augmentin and doxycycline and then subsequently given a course of Keflex for lower extremity cellulitis. He is not producing much sputum but has been significantly more short of breath with any form of exertion. On Thursday prior to admission, he was so weak that he fell down and his was unable to get him up. She called her grandson to assist him and from then he stayed in his chair on Thursday. His noted his blood pressures were low with systolics in the 70s. By Thursday his blood pressures had improved into the 90s systolic. She did administer his usual medications. In general, Mr. Tee and his prefer not to come to the emergency room on the weekends if they can avoid it. They presented today due to his continued decline in overall. No complaints of any chest pain. No abdominal pain. No significant change in bowel or bladder function. Towards the end of March he did have a drop in his hemoglobin and report of black stools. He received 14 days of treatment with Protonix prescribed by ER provider. He has remained on Eliquis at an adjusted dose given his renal insufficiency. He is on this due to atrial fibrillation. Lots of bruising but no gross bright red blood loss. Not having ongoing black stools. He does continue to have swelling and redness of both lower extremities with some wounds to his right lower extremity that are longstanding and still open. He has pain in his legs along with restless leg syndrome. He had been going to wound care clinic but opted not to continue wound care after most recent visit dated May 06. He was last seen by cardiology on May 03. He has not been deemed a candidate for cardiac catheterization due to his renal function combined with difficult access when he last had arteriogram in 2020. Workup in the emergency room today revealed worsening renal function and azotemia, further drop in his hemoglobin, significant peripheral edema with oozing of serous fluid, pleural effusion on chest x-ray, elevated white count, elevated CRP, audible wheezing that improved after breathing treatments and steroids but only marginally. Unable to rule out consolidation on chest x-ray imaging from radiology interpretation (versus atelectasis). BNP is slightly above prior values, albumin is slightly low, potassium elevated. In the emergency room he received several breathing treatments, 125 mg of Solu-Medrol, 1 dose of IV linezolid and IV meropenem, 80 mg of IV Protonix. Request was made for admission. Blood pressures in the emergency room initially noted to be quite low at 70/46 with pulse 68, respirations 20 and oxygen saturation 92%. He was placed on oxygen at 4 L by nasal cannula with improved saturations. At the time of my examination, patient is sleepy but arousable. History is obtained predominantly from his with more focus questions being answered by him. Review of Systems 2 General: Reports: Other (ROS as per HPI or as otherwise noted here) Const: Reports: chills, body aches, change in weight (gain 15#), fatigue and malaise; Denies: fever(s) ENMT: Reports: nasal congestion; Denies: throat pain Card: Reports: edema (worsening); Denies: chest pain or palpitations Resp: Reports: dyspnea, non-productive cough, wheezing, chest congestion and other (weak cough); Denies: pain on inspiration or hemoptysis GI: Denies: abdominal pain, nausea, vomiting, change in bowel habits, hematochezia or melena (had black stools in March but not noted recently, s/p 2 wks protonix bid) : Reports: difficulty urinating and urinary hesitancy; Denies: dysuria or hematuria Musc: Reports: extremity pain (legs bother him/hurt, RLE more after fall thursday) Skin/Breast: Reports: erythema (legs) and non-healing lesions (RLE, slow healing, declines further wound care visits) Neuro: Reports: weakness in extremities (general not focal), difficulty walking, frequent falls and confusion (after taking ambien) [place]/Lymph: Reports: easy bruising, easy bleeding and other (on eliquis) Medications/Allergies Home Medications Medication Instructions Recorded Confirmed Last Taken Type atorvastatin 40 mg tablet 40 mg PO QPM 04/16/20 05/09/24 05/08/24 History diltiazem HCl 180 mg 180 mg PO QAM 04/16/20 05/09/24 05/08/24 History capsule,extended release 24 hr (Cartia XT) finasteride 5 mg tablet 5 mg PO BEDTIME 04/16/20 05/09/24 05/08/24 History multivitamin 1 tab PO DAILY 04/16/20 05/09/24 05/08/24 History nitroglycerin 0.4 mg sublingual 0.4 mg sublingual Q5M PRN chest 02/11/21 05/09/24 03/09/24 Rx tablet (Nitrostat) pain #25 tabs omega-3 fatty acids 500 mg capsule 500 mg PO DAILY 09/04/22 05/09/24 05/08/24 History ropinirole 2 mg tablet 1 mg PO QPM 09/08/23 05/09/24 05/08/24 History isosorbide mononitrate 30 mg 30 mg PO BID #180 tabs 10/22/23 05/09/24 05/09/24 07:00 Rx tablet,extended release 24 hr ranolazine 500 mg tablet,extended 500 mg PO BID #180 tabs 11/23/23 05/09/24 05/09/24 07:00 Rx release,12 hr furosemide 40 mg tablet 40 mg PO BID 30 days #60 tabs 03/12/24 05/09/24 05/09/24 07:00 Rx apixaban 5 mg tablet (Eliquis) 2.5 mg (1/2 x 5 mg) PO BID #30 tabs 04/06/24 05/09/24 05/09/24 07:00 Rx clopidogrel 75 mg tablet 75 mg PO DAILY 04/18/24 05/09/24 05/09/24 07:00 History tamsulosin 0.4 mg capsule 0.4 mg PO DAILY 04/18/24 05/09/24 05/09/24 07:00 History bacitracin 500 unit/gram topical 1 applic topical BID #14 grams 04/19/24 05/09/24 05/08/24 Rx ointment cephalexin 500 mg capsule 500 mg PO BID #14 caps 05/03/24 05/09/24 05/09/24 07:00 Rx Magnalife See Rx Instructions .Route .COMPLEX 05/09/24 05/09/24 05/08/24 History calcium carb 333 mg-vit D3 133 1 tab PO DAILY 05/09/24 05/09/24 05/08/24 History unit-mag ox 133 mg-zinc oxide 5 mg tab carbidopa 25 mg-levodopa 100 mg 0.5 ea PO TID Restless Leg Syndrome 05/09/24 05/09/24 05/08/24 History tablet losartan 25 mg tablet 25 mg PO DAILY 05/09/24 05/09/24 05/08/24 History potassium chloride 20 mEq 20 meq PO BID PRN low potassium 05/09/24 05/09/24 Unknown History tablet,extended release (currently not scheduled) vitamin E 268 mg (400 unit) capsule 268 mg PO DAILY 05/09/24 05/09/24 05/08/24 History zolpidem 5 mg tablet 5 mg PO BEDTIME PRN Insomnia 05/09/24 05/09/24 Unknown History Allergies Allergy/AdvReac Type Severity Reaction Status Date / Time gabapentin Allergy ALGY-Rash Verified 05/09/24 09:33 PFSH Acute 2 PFSH: Medical History COPD (chronic obstructive pulmonary disease) RLS (restless legs syndrome) On carbidopa and Requip for this Aortic stenosis Peripheral arterial disease HTN (hypertension), benign Atrial fibrillation Diastolic CHF CKD (chronic kidney disease) Lower extremity edema Hypoxia Chronic stable angina Community acquired pneumonia Cellulitis and abscess of left leg Tobacco abuse SHARON (obstructive sleep apnea) Prescribed CPAP auto-titrating 5-9cm but not using due to feeling like suffocating; on oxygen at night History of sleep study (01/2021) severe obstructive sleep apnea, optimal pressure setting 6cm, with recommendation for auto-titrating CPAP 5-9 cm Atherosclerosis of leg with intermittent claudication History of cardioversion 03/16/2019 BPH (benign prostatic hyperplasia) Hyperlipidemia CAD (coronary artery disease) Varicose veins of bilateral lower extremities with other complications Surgical History S/P coronary angiogram 04/29/2007, 11/20/2021 ([facility]) S/P carotid endarterectomy S/P AAA (abdominal aortic aneurysm) repair with [place] endograft S/P femoral-femoral bypass surgery S/P CABG (coronary artery bypass graft) 1988 X1, 2006 X2 Family History Brother Cancer CAD (coronary artery disease) Diabetes Mother Heart disease CAD (coronary artery disease) Diabetes Sister CAD (coronary artery disease) Denies family history of Clotting disorder Dementia Chronic kidney disease (CKD) Suicide Anesthesia complication Bleeding disorder Lung disease Stroke Social History Smoking and tobacco/nicotine status: current every day tobacco/nicotine user Alcohol intake: never Substance/Drug Use: never Lives independently: No Household members: spouse Marital status: Vitals/I&O/Wt Last Vital Signs Temp 98.1 F 05/09/24 09:23 Pulse 68 05/09/24 12:45 Resp 26 H 05/09/24 12:27 BP 82/47 05/09/24 10:53 Pulse Ox 90 05/09/24 12:27 O2 Del Method Nasal Cannula 05/09/24 12:27 O2 Flow Rate 3 05/09/24 12:27 05/08/24 05/09/24 05/09/24 22:59 06:59 14:59 Intake Total 55 / 55 Balance 55 / 55 Weight last 48 hrs Weight 90.718 kg Physical Exam 2 Narrative: Patient is sleepy but arousable. Will answer simple questions. Audible wheezing noted. Pursed lip breathing. Looks both acutely and chronically ill. Extraocular movements are intact. Nasopharynx with some drainage. Moist membranes. Neck is large but supple. Lungs are coarse. Upper airway noise predominant. Some accessory muscle use noted. Cardiovascular exam with irregular rhythm, not tachycardiac. Abdomen is rotund , soft but some edema noted to lower panus. Positive bowel sounds. 4+ edema both legs. Weeping serous fluid right leg more than left leg. Tender to palpation both legs. Right with a bruise that is more tender than rest of legs. Also with some open wounds right lower extremity similar to what was documented at wound care clinic last week. Moves all extremities but generally weak. Data 05/09/24 18:11 05/09/24 09:58 Other Labs: Radiology Impressions Chest X-Ray 05/09/24 09:41 IMPRESSION: Moderate right greater than left pleural effusion with adjacent right greater than left basilar consolidation versus atelectasis. Laboratory Results WBC 12.55 10^3/uL (3.29-11.43) H 05/09/24 09:58 RBC 2.18 10^6/uL (3.85-5.65) L 05/09/24 09:58 Hgb 7.10 g/dL (11.27-16.99) L 05/09/24 09:58 Hct 23.7 % (37-53) L 05/09/24 09:58 MCV 108.7 fl (82-101) H 05/09/24 09:58 MCH 32.6 pg (27-33) 05/09/24 09:58 MCHC 30.0 g/dL (30-55) 05/09/24 09:58 RDW 16.4 % (12.1-15.1) H 05/09/24 09:58 Plt Count 280 10^3/cmm (157-399) 05/09/24 09:58 MPV 9.8 fL (7.4-10.4) 05/09/24 09:58 Neut % (Auto) 85.8 % 05/09/24 09:58 Lymph % (Auto) 4.9 % 05/09/24 09:58 [place] % (Auto) 7.7 % 05/09/24 09:58 Eos % (Auto) 0.3 % 05/09/24 09:58 Baso % (Auto) 0.2 % 05/09/24 09:58 Neut # (Auto) 10.77 10^3/uL (1.8-7.7) H 05/09/24 09:58 Lymph # (Auto) 0.6 10^3/uL (0.8-4.8) L 05/09/24 09:58 [place] # (Auto) 1.0 10^3/uL (0.2-0.9) H 05/09/24 09:58 Eos # (Auto) 0.0 10^3/uL (0.0-0.8) 05/09/24 09:58 Baso # (Auto) 0.0 10^3/uL (0.0-0.1) 05/09/24 09:58 Nucleated RBC % (auto) 0 % 05/09/24 09:58 Nucleated RBCs # 0.0 /100WBC 05/09/24 09:58 Specimen Type Arterial 05/09/24 09:50 Sample Site Brachial, left 05/09/24 09:50 ABG pH 7.38 (7.35-7.45) 05/09/24 09:50 ABG pCO2 41.4 mmHg (35-45) 05/09/24 09:50 ABG pO2 104.0 mmHg (80.0-100.0) H 05/09/24 09:50 ABG PO2/FiO2 Ratio 0 05/09/24 09:50 ABG HCO3 24.7 mmol/L (22-26) 05/09/24 09:50 ABG O2 Saturation 99.5 05/09/24 09:50 ABG Base Excess -0.4 mmol/L (-2.0-2.0) 05/09/24 09:50 [place] Test N/a 05/09/24 09:50 A-a O2 Gradient 13.1 mmHg (5-10) H 05/09/24 09:50 Hematocrit 22.1 % (42-52) L 05/09/24 09:50 Hgb O2 Saturation 95.5 % (95-100) 05/09/24 09:50 Carboxyhemoglobin 3.7 %THgb (0.4-20.1) 05/09/24 09:50 Methemoglobin 0.4 % (0.4-1.5) 05/09/24 09:50 Total Hemoglobin 7.2 g/dL (14-18) L 05/09/24 09:50 Sodium 132.0 mmol/L (131-143) 05/09/24 09:50 Potassium 4.7 mmol/L (3.5-5.0) 05/09/24 09:50 Glucose 97.0 mg/dL (70-115) 05/09/24 09:50 Ionized Calcium 1.2 mmol/L (1.1-1.4) 05/09/24 09:50 O2 Delivery Device Nc 05/09/24 09:50 O2 Liters/Min 4.0 % 05/09/24 09:50 FiO2 36.0 % 05/09/24 09:50 Hand Cigar Maker ID Amh 05/09/24 09:50 Sodium 134 mmol/L (136-145) L 05/09/24 09:58 Potassium 5.2 mmol/L (3.5-5.1) H 05/09/24 09:58 Chloride 97 mmol/L (98-107) L 05/09/24 09:58 Carbon Dioxide 24 mmol/L (22-29) 05/09/24 09:58 Anion Gap 18.2 (5-19) 05/09/24 09:58 BUN 99 mg/dL (8-23) H* 05/09/24 09:58 Creatinine 3.4 mg/dL (0.7-1.2) H 05/09/24 09:58 GFR Calculation Not Reportable 05/09/24 09:58 Glucose 90 mg/dL (65-115) 05/09/24 09:58 Calculated Osmolality 308 mOsm/kg (285-295) H 05/09/24 09:58 Lactic Acid 1.6 mmol/L (0.5-2.2) 05/09/24 09:58 Calcium 8.2 mg/dL (8.5-10.5) L 05/09/24 09:58 Total Bilirubin 0.6 mg/dL (0.15-1.2) 05/09/24 09:58 AST 18 U/L (0-40) 05/09/24 09:58 ALT < 5 U/L (0-41) 05/09/24 09:58 Alkaline Phosphatase 98 U/L (40-130) 05/09/24 09:58 Troponin T Baseline 74 ng/L (0-15) H 05/09/24 09:58 C-Reactive Protein 26.9 mg/L (0.0-4.9) H 05/09/24 09:58 NT-Pro-B Natriuret Pep 2199 pg/mL (0-450) H 05/09/24 09:58 Total Protein 5.3 g/dL (6.6-8.7) L 05/09/24 09:58 Albumin 3.2 g/dL (3.5-5.2) L 05/09/24 09:58 Globulin 2.1 g/dL (1.3-4.6) 05/09/24 09:58 Adenovirus (PCR) Not detected (NOT DETECT) 05/09/24 10:00 C. pneumoniae DNA (PCR) Not detected (NOT DETECT) 05/09/24 10:00 Coronavirus 229E (PCR) Not detected (NOT DETECT) 05/09/24 10:00 Human Metapneumovir PCR Not detected (NOT DETECT) 05/09/24 10:00 Influenza A (H1) PCR Not detected (NOT DETECT) 05/09/24 10:00 Influ A (H1/09) PCR Not detected (NOT DETECT) 05/09/24 10:00 Influenza A (H3) PCR Not detected (NOT DETECT) 05/09/24 10:00 Influenza Type A (PCR) Not detected (NOT DETECT) 05/09/24 10:00 Influenza Type B (PCR) Not detected (NOT DETECT) 05/09/24 10:00 M. pneumoniae (PCR) Not detected (NOT DETECT) 05/09/24 10:00 Parainfluenza 1 (PCR) Not detected (NOT DETECT) 05/09/24 10:00 Parainfluenza 2 (PCR) Not detected (NOT DETECT) 05/09/24 10:00 Parainfluenza 3 (PCR) Not detected (NOT DETECT) 05/09/24 10:00 Parainfluenza 4 (PCR) Not detected (NOT DETECT) 05/09/24 10:00 RSV Type A (PCR) Not detected (NOT DETECT) 05/09/24 10:00 RSV Type B (PCR) Not detected (NOT DETECT) 05/09/24 10:00 Entero/Rhino (PCR) Not detected (NOT DETECT) 05/09/24 10:00 SARS-CoV-2 (PCR) Not detected (NOT DETECT) 05/09/24 10:00 Blood Type O Positive 05/09/24 10:17 Rho(D) Type Rh positive 05/09/24 10:17 Antibody Screen Negative 05/09/24 10:17 Crossmatch See Detail 05/09/24 10:17 Other data: Venous Duplex LE 03/17/2024 CONCLUSIONS No evidence of right lower extremity DVT. No evidence of left lower extremity DVT. Left popliteal cyst 2.4 x4.0cm Renal US 02/4024 IMPRESSION: 1. No renal obstruction. 2. Mild progression of chronic medical renal disease in the RIGHT kidney. 3. No change in the mildly complex cystic mass in the RIGHT kidney. 4. Significant post void urinary retention. Suspect bladder outlet obstruction. ECHO 03/10/2023 CONCLUSIONS LV systolic function is normal with EF 50 to 55%. RV is mild to moderately hypokinetic Biatrial enlargement. Mild mitral regurgitation Mild aortic stenosis with aortic valve area of 1.27 cm squared with mean gradient across aortic valve of 11 mmHg Mild aortic regurgitation Mild tricuspid regurgitation Mild pulmonic regurgitation CATH 11/2021 Conclusions 1. This is a complicated 85-year-old male past medical history significant for severe peripheral arterial disease with femorofemoral bypass chronically occluded iliac arteries bilaterally, were not able to cross from common femoral approach. Right radial approach was adopted right subclavian was extremely tortuous, we were able to engage and performed coronary angiogram with difficulty and were able to engage the grafts. GRANADO to LAD was not able to engage due to extreme tortuosity of the subclavian vessel however retrograde filling was observed through LAD injection. Left main was normal, circumflex has ostial 95% high-grade stenosis LAD is occluded in the middle RCA is occluded in the proximal segment. GRANADO to LAD was noted to be visualized through retrograde filling since we were not able to engage. SVG to RCA was patent. SVG to obtuse marginal was patent however soon after the touchdown there is a short high-grade stenosis. Distal to the vessel there is a bifurcating obtuse marginal vessel.. 2. This patient has redo bypass surgery with severe peripheral arterial disease. Through the right radial approach we tried to engage the SVG to obtuse marginal which is the culprit vessel . As defined above due to high tortuosity of the vessels we were not able to engage SVG to circumflex using different guides. Since we have achieved high contrast and radiation and because of the fact this will be high risk intervention, we will treat the patient medically first if he continues to have chest pain or the lesion is interfering with quality of life we may will bring him back through left radial approach to fix the [place] circumflex vessel or through SVG distal lesion.. 3. There is total occlusion coronary artery disease with three vessel disease. 4. Three coronary grafts visualized: all grafts patent. 5. Patient has prior CABG. Recommendations * Continue current medical management and risk factor modification. Diagnostic RX Recommendation: medical therapy and/or counseling A&P Assessment and plan (1) Diastolic CHF: Acute on chronic diastolic CHF with significant peripheral edema as evidenced on examination. Last echocardiogram was a couple of years ago when ejection fraction was preserved. Has been on Lasix 40 mg twice a day for the last month or 2 with continued challenges managing weight and volume. Is status post 3 days of metolazone last week, again without improvement in edema. Now with oozing of serous fluid from his lower extremities and increasing abdominal girth along with right-sided pleural effusion. Differential for acute exacerbation includes ischemia, worsening renal function, inadequate diuresis, poor perfusion secondary to hypotension, among others. Has been on losartan at home in addition to diuresis. Qualifiers: Heart failure chronicity: acute on chronic Qualified Code(s): I50.33 - Acute on chronic diastolic (congestive) heart failure (2) Acute on chronic renal failure: I suspect baseline kidney function stage IIIb versus IIIb. Review of records from this year shows creatinine at times as low as 1.6 but when diuresed it has at times been higher around 2.5 or more. Current BUN and creatinine 99/3.4. Most recent comparative values from primary care provider's office on April 27 were 80/2.4. Azotemia has been progressively worsening over the last few months. Currently with acute on chronic kidney failure most likely secondary to ATN associated with hypotension given blood pressure values noted both at home and here. Impact of recent trial of metolazone could also be in play though completed doses last week. Qualifiers: Acute renal failure type: with acute tubular necrosis Chronic kidney disease stage: stage 3 (moderate) Chronic kidney disease stage 3 subtype: stage 3b (GFR 30-44) Qualified Code(s): N17.0 - Acute kidney failure with tubular necrosis; N18.32 - Chronic kidney disease, stage 3b (3) Acute blood loss anemia: Significant drop in hemoglobin from normal in February and March of this year ranging from 13-15 to hemoglobin of 7 today. Was noted to have black stools prior to an emergency room visit in March. He is status post 2 weeks of PPI treatment. No recent black tarry stools or gross bleeding beyond the chronic ecchymoses that he has to his extremities. He does have a newer bruise to his right lower extremity from his fall on Thursday. The bruise is tender to palpation but soft. Given cardiac history he was started on blood transfusion in the emergency room. No stool thus far. No other gross bleeding appreciated or reported. Suspect iron deficiency. Has had some courses of steroids over the last 6 months or so but not on chronically. Does not take PPI chronically. That said there is also likely a delusional component to current values given total body volume overload. (4) Hypotension: Difficult ascertain definitive cause for hypotension currently. I suspect it is multifactorial in nature. Patient is on multiple medications that can cause hypotension particularly when you consider worsening renal function. He has known mild aortic stenosis and coronary artery disease that was not amendable to attempts at evaluation and intervention a few years ago and has been medically managed. Volume in either direction, including from blood loss, as well as angina could contribute. Sepsis is also within the differential particularly with elevation in white count and CRP. Other vital signs are within appropriate range and lactic acid was normal. Potential foci of infection include skin with lower extremity stasis changes and possibility of pneumonia or bronchitis versus upper respiratory infection. Viral respiratory panel is negative. Blood cultures are pending. EKG without st segment elevation. (5) COPD with acute exacerbation: Acute on chronic COPD exacerbation. Continue to smoke. Is on oxygen at 2 L by nasal cannula but only at night. Does not have respiratory medications at home. (6) Aortic stenosis: Nonrheumatic aortic stenosis, mild by last evaluation. Can impact volume, blood pressure, potential to fall. (7) CAD (coronary artery disease): Has had fairly stable angina for the last month or so on Ranexa and isosorbide. Has not required sublingual nitroglycerin since mid to late February. Difficult access when last coronary angiogram was performed due to peripheral arterial disease. Known to have had femoral bypass. Chronically on Plavix. Qualifiers: Associated angina: with stable angina Coronary Disease-Associated Artery/Lesion type: bypass graft [place] vs. transplanted heart: [place] heart Qualified Code(s): I25.708 - Atherosclerosis of coronary artery bypass graft(s), unspecified, with other forms of angina pectoris (8) Atrial fibrillation: Chronic, rate controlled on diltiazem at home Qualifiers: Atrial fibrillation type: persistent (not longstanding) Qualified Code(s): I48.19 - Other persistent atrial fibrillation (9) Chronic anticoagulation: Chronically on Eliquis due to history of atrial fibrillation (10) Peripheral arterial disease: Has had previous AAA repair, carotid endarterectomy as well as femoral-femoral bypass in addition to CABG. (11) Cellulitis: Stasis cellulitis of both lower extremities. Right lower extremity with chronic slow healing wounds along with significant serous drainage. Completing a course of Keflex prescribed for lower extremity cellulitis today. Has also been prescribed bacitracin. After last week not going to wound care clinic by preference for home management. (12) Hyperlipidemia: Chronically on atorvastatin Qualifiers: Hyperlipidemia type: unspecified Qualified Code(s): E78.5 - Hyperlipidemia, unspecified (13) BPH (benign prostatic hyperplasia): Chronically on finasteride and tamsulosin Qualifiers: Lower urinary tract symptom detail: urinary hesitancy Lower urinary tract symptom presence: symptoms present Qualified Code(s): N40.1 - Benign prostatic hyperplasia with lower urinary tract symptoms; R39.11 - Hesitancy of micturition (14) RLS (restless legs syndrome): Chronically on carbidopa/levodopa and ropinirole at home. RLS can be severe at times. Also uses an [id number]-xmjlzwo cream called magnalife. (15) SHARON (obstructive sleep apnea): Diagnosed via sleep study, has not used CPAP since October 2023 as he felt like it was suffocating him. Does utilize oxygen at night. (16) Tobacco abuse: Has not smoked in about a week but was prior to that Plan Possible pneumonia present on admission, healthcare acquired, though suspect findings on CXR represent effusion and atelectasis currently Insomnia, has been prescribed zolpidem but rarely takes as has confusion and falls after Advanced age At risk for c diff given repeated courses of antibiotics of late ICU admission PICC line has been ordered given difficult peripheral access from degree of edema Pressure support if needed Once blood pressures are improved, will attempt to initiate IV diuresis Will try to continue Ranexa, currently holding isosorbide Will discontinue losartan and likely need to hold at discharge Continuing diltiazem as able but will convert to immediate release presently Discussed case with Dr. Becker who will see Mr. Tee in consultation Had previously been deemed a poor candidate for invasive cardiac evaluation or even stress testing due to comorbidities and challenges with vascular access documented at time of last arteriogram Squires catheter for close monitoring of urine output given clinical presentation and management plan Have asked nursing staff to get urinalysis Will check uric acid, phosphorus, magnesium and coagulation studies Plan to monitor renal function closely and will reevaluate for nephrology consultation in the morning if not showing improvement Receiving blood transfusion currently, will check hemoglobin after first unit before discerning need for additional units Hemoccult of stool has been ordered along with iron studies Empiric antibiotic coverage with vancomycin and meropenem for possibility of healthcare associated pneumonia Patient has 1 more dose of cephalexin from outpatient prescription Blood cultures have been collected Sputum cultures ordered Will add breathing treatments Continue oxygen as needed, titrating to 2 L by nasal cannula which is home dose as able Systemic steroids Continue home Plavix Given the lack of gross bleeding present and reports that stools are no longer black as that had been I have continued patient's Eliquis at 2.5 mg twice daily for the time being though will need to monitor closely and hold should evidence of ongoing bleeding/blood loss become evident Poor candidate for consideration of EGD or colonoscopy given cardiopulmonary issues presently Will keep lower extremities elevated Bacitracin to open wounds on the right lower extremity along with Lotrisone cream to the legs Continue home statin Continue home finasteride and Flomax Will continue home Sinemet/levodopa plus ropinirole for restless leg Will monitor need to attempt provides BiPAP or CPAP during hospital stay, not using device at home due to sensation of feeling suffocated VTE prophylaxis: Chronically on Eliquis which is currently being continued, no mechanical prophylaxis secondary to open wounds right lower extremity and active weeping from both lower extremities GI Prophylaxis: PPI Antibiotics: Earlier this month treated with Augmentin and doxycycline for pneumonia; has been on Keflex from outpatient for cellulitis with 1 dose remaining; in the ED received empiric linezolid and meropenem; have continued meropenem and vancomycin for empiric coverage beginning 05/09 Pending studies: Iron studies, blood culture, sputum culture, urinalysis, echocardiogram and repeat serial labs including troponin, H&H and chemistries Telemetry: Currently requires monitoring due to clinical nature of current state as described Squires: Currently with Squires catheter due to need to monitor urine output and planned IV diuresis in the setting of acute renal failure and hypotension Line(s): PICC line Disposition plan: Home with outpatient follow up to primary care provider and cardiology currently anticipated. May also benefit from addition of nephrology depending on clinical course. Would recommend ongoing discussions regarding goals of care and optimizing care in the home setting. Code Status: Full Code per discussion with patient's . He would not want to live in a persistent vegetative state or with long-term mechanical life support from our discussion. He does have a living will though we do not have a copy on file Supportive care otherwise Findings, concerns and plans were discussed with patient along with his and later his daughter and all were given an opportunity to ask questions Attestations 2 Medical Necessity Statement*: Anticipated stay greater than two midnights in this gentleman presenting with diagnoses as noted above. Comorbidities add a level of complexity for management that cannot be addressed adequately in the outpatient setting. Currently receiving blood transfusion, ICU care monitoring due to hypotension, as needed pressor support, IV diuresis and serial labs. At high risk of rapid clinical decline up to and including the possibility of . Other plans of care as noted above. Coding Level of Care Code 01370 High MDM includes number and complexity of problems actively addressed during encounter, amount and/or complexity of data reviewed/ordered [ resulted lab(s)/test(s), ordered lab(s)/test(s), independent historian ( and daughter) and other healthcare professional discussion (Eugenio)] and described risk of complication, morbidity or mortality of management (serial lab, high risk medications, close monitoring) as documented Diagnoses Acute on chronic diastolic congestive heart failure I50.33 Heart failure chronicity: acute on chronic Acute renal failure with acute tubular necrosis 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 transplanted heart: [place] heart Persistent atrial fibrillation I48.19 Atrial fibrillation type: persistent (not longstanding) Chronic anticoagulation Z79.01 Peripheral arterial disease I73.9 Cellulitis L03.90 Hyperlipidemia, unspecified hyperlipidemia type E78.5 Hyperlipidemia type: unspecified Benign prostatic hyperplasia with urinary hesitancy N40.1; R39.11 Lower urinary tract symptom detail: urinary hesitancy Lower urinary tract symptom presence: symptoms present RLS (restless legs syndrome) G25.81 SHARON (obstructive sleep apnea) G47.33 Tobacco abuse Z72.0
[2024-05-09 13:36] LABS: Troponin 5 2HR 72.15 ng/L (0-15)
[2024-05-09 13:42] LABS: Troponin 5 2HR Delta -1.85 ABS# (0-10)
--- NOTE | 2024-05-09 14:21 | PC.NURSE ---
ANTIBIOTICS DELAYED DUE TO BLOOD CULTURES AND NEED FOR PICC LINE.
--- NOTE | 2024-05-09 14:28 | PC.NURSE ---
PT TOOK CARBIDOPA-LEVODOPA AND ROPINIROLE FROM HOME MEDS, DR. MARICHUY BUNN'Roger [facility] HOME MEDS.
--- NOTE | 2024-05-09 14:35 | XR_ITS ---
WS: [id number] Exam: XR chest 1V portable [id number] Date/Time of Exam: 05/09/2024 2:35 PM Reason For Exam: Post PICC insertion Comparison 05/09/2024 at 9:58 a.m. A left-sided PICC line has been placed and appears to end at the cavoatrial junction and satisfactory position. There is infiltrate and atelectasis in the RIGHT lower lung zone with prominent RIGHT basa l pleural effusion. The heart is enlarged. The mediastinum is normal in contour. Signs of median ster notomy. Bony structures are intact. There may be LEFT basal pleural effusion also. XR/XR chest 1V portable [id number] IMPRESSION: 1. Left-sided PICC line ending at the cavoatrial junction. 2. Cardiac enlargement with pulmonary vascular congestion. There is infiltrate and atelectasis in the middle and lower lobes of the RIGHT lung and RIGHT basal pleural effusion. There may also be LEFT basal pleural effusion.
[2024-05-09 14:57] LABS: Urine Appearance Clear (CLEAR); Urine Color Yellow (Yellow)
[2024-05-09 14:58] LABS: Add Urine Culture? No; Bacteria Urine 1+ /hpf; Bilirubin Urine Neg (Negative); Blood Urine Neg (Negative); Glucose Urine UA Norm (Normal); Hyaline Casts Urine 15-25 /lpf; Ketones Urine 1+ (Negative); Leukocyte Esterase Urine Negative (Negative); Mucus Urine TRACE /hpf; Nitrate Urine Negative (Negative); Protein Urine Trace (Negative); RBC Urine RARE /hpf (0-2); Squamous Epithelial Cell Urine 0-4 /hpf (0-5); Transitional Epi Cells Urine 0-4 /hpf; Urobilinogen Urine Neg (Negative); WBC Urine 0-4 /hpf (0-5); pH Urine 5 (5-7)
--- NOTE | 2024-05-09 15:31 | PICC.NOTE ---
Triple lumen PICC placed to left basilic vein. Referred to vascular access nurse for PICC placement due to need for vasopressors. Risks and benefits discussed and informed consent obtained from patient. Left arm assessed with left basilic vein measuring 3.2 mm, straight, and apparent best choice for placement. Using sterile technique and MST, left basilic vein accessed x 1 stick. Mid-arm circumference measured 10 cm from left AC 29 cm. Trimmed cath 46 cm with 0 cm external length noted. CXR shows tip in cavoatrial junction, in good position for use per radiologist. Line secured with stat-lock. Insertion site covered with Biopatch and TSM. Report given to bedside nurse, MARYLOU Collins.
--- NOTE | 2024-05-09 15:44 | ECG_ITS ---
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 Measurements Intervals [place] Rate: 79 P: 0 SC: 0 QRS: 122 QRSD: 189 T: -21 QT: 452 QTc: 520 Interpretive Statements ATRIAL FIBRILLATION RIGHT AXIS DEVIATION [QRS AXIS > 100] RIGHT BUNDLE BRANCH BLOCK [120+ ms QRS DURATION, UPRIGHT V1, 40+ ms S IN I/aVL/V4/V5/V6] Compared to ECG 05/09/2024 11:35:23 No significant changes Electronically Signed On 05-10-2024 23:50:52 CDT by José Luis Becker M.D. [id number]
[2024-05-09] MEDS: methylPREDNISolone sod succ 125 mg/2 mL INJ 60 MG IVP (16:02)
[2024-05-09] MEDS: FUROsemide 10 mg/mL SDV 10mL 80 MG IVP (16:03)
[2024-05-09 16:14] LABS: Troponin 5 6HR 61.14 ng/L (0-15)
[2024-05-09 16:18] LABS: Troponin 5 6HR Delta -12.86 ng/L (0-12)
[2024-05-09] MEDS: ranolazine (12HR) 500 mg Tablet PO (16:30)
[2024-05-09 16:31] LABS: INR 1.93 (0.8-1.2); Partial Thromboplastin Time 47.3 SECONDS (23.9-36.7)
[2024-05-09] MEDS: docusate sodium 100 mg Capsule PO (16:32)
[2024-05-09] MEDS: dilTIAZem 30 mg Tablet PO ×2 (16:32→21:06)
[2024-05-09] MEDS: ropinirole 2 mg Tablet 1 MG PO (16:32)
[2024-05-09] MEDS: guaiFENesin 600 mg Tablet PO (16:33)
[2024-05-09 16:37] LABS: Iron 55 ug/dL (59-158); Magnesium 3.1 mg/dL (1.7-2.3); Percent Saturation 17.4 % (20-50); Phosphorus 6.2 mg/dL (2.5-4.5); Total Iron Binding Capacity 315 mcg/dl; Unsaturated Iron Binding 260 ug/dL (112-347); Uric Acid 11.9 mg/dL (3.4-7.0)
--- NOTE | 2024-05-09 17:16 | PM.CONSULT ---
Providers/Reason For Consult Consulting Physician/Specialty*: EMERITA Becker MD /cardiology Reason for Consult*: Patient with chest pain/shortness of breath/atrial fibrillation/atherosclerotic heart disease Attending Physician: Mehnaz Gonzalez MD Primary Care Provider: Gwen Sanon NP History of Present Illness History of Present Illness Steven Tee is a 89 year old male with a history of atherosclerotic heart disease, status post open heart surgery x 2, peripheral artery disease, status post popliteal bypass surgery, history of atrial fibrillation, congestive heart failure, recent hospital admission for pneumonia/cellulitis, is presenting with complaints of worsening shortness of breath and generalized weakness. He was found to be hypotensive with a systolic blood pressure in the 70s at home. Patient is admitted to hospital for further evaluation and management. This patient was found to be anemic with a hemoglobin around 7. He was found to be in congestive heart failure. He also has been having episodes of chest pains since this morning. He denies any fever, chills or cough. No palpitations or syncopal episodes. He underwent the last cardiac catheterization 2021. Since he has no femoral access, angiogram was performed to right radial artery. The subclavian artery was found to be extremely tortuous. Could not engage the GRANADO to the LAD. He was found to have total occlusion of the mid LAD, right coronary artery and high-grade ostial stenosis circumflex artery. The GRANADO was found to be patent through retrograde filling. The venous graft to the RCA was found to be patent. The venous graft circumflex artery was found to have a high-grade lesion distal to the distal anastomotic site. Attempts were made to intervene this lesion. Because of the technical difficulties, this could not be accomplished. So it was opted to treat him medically at that point. Patient has been taking isosorbide mononitrate and Ranexa for the chest pain. His chest symptoms were fairly stable up until today. Since the hospital admission, he received 1 unit of blood transfusion. His chest pain seems to be stable. Review of Systems Narrative: CONSTITUTIONAL: Generalized weakness/fatigue EYES: No blurring of vision or other visual disturbances lately. ENT: No hoarseness of voice, auditory disturbances or sore throat. CARDIOVASCULAR: As mentioned above. RESPIRATORY: Has been having some shortness of breath and cough GASTROINTESTINAL: No hematemesis or melena. GENITOURINARY: No dysuria or hematuria. INTEGUMENTARY: No skin rashes or history of skin cancer. NEURO: No transient ischemic attacks or amaurosis. Patient has restless leg syndrome PSYCHIATRIC: No history of psychosis or major depression. HEMATOLOGIC: Anemia as mentioned above ENDOCRINE: No history of polyuria or polydipsia. MUSCULOSKELETAL: No recent joint pain or swelling. ALLERGY/IMMUNOLOGY: As mentioned above. Medications/Allergies Home Medications Medication Instructions Recorded Confirmed Last Taken Type atorvastatin 40 mg tablet 40 mg PO QPM 04/16/20 05/09/24 05/08/24 History diltiazem HCl 180 mg 180 mg PO QAM 04/16/20 05/09/24 05/08/24 History capsule,extended release 24 hr (Cartia XT) finasteride 5 mg tablet 5 mg PO BEDTIME 04/16/20 05/09/24 05/08/24 History multivitamin 1 tab PO DAILY 04/16/20 05/09/24 05/08/24 History nitroglycerin 0.4 mg sublingual 0.4 mg sublingual Q5M PRN chest 02/11/21 05/09/24 03/09/24 Rx tablet (Nitrostat) pain #25 tabs omega-3 fatty acids 500 mg capsule 500 mg PO DAILY 09/04/22 05/09/24 05/08/24 History ropinirole 2 mg tablet 1 mg PO QPM 09/08/23 05/09/24 05/08/24 History isosorbide mononitrate 30 mg 30 mg PO BID #180 tabs 10/22/23 05/09/24 05/09/24 07:00 Rx tablet,extended release 24 hr ranolazine 500 mg tablet,extended 500 mg PO BID #180 tabs 11/23/23 05/09/24 05/09/24 07:00 Rx release,12 hr furosemide 40 mg tablet 40 mg PO BID 30 days #60 tabs 03/12/24 05/09/24 05/09/24 07:00 Rx apixaban 5 mg tablet (Eliquis) 2.5 mg (1/2 x 5 mg) PO BID #30 tabs 04/06/24 05/09/24 05/09/24 07:00 Rx clopidogrel 75 mg tablet 75 mg PO DAILY 04/18/24 05/09/24 05/09/24 07:00 History tamsulosin 0.4 mg capsule 0.4 mg PO DAILY 04/18/24 05/09/24 05/09/24 07:00 History bacitracin 500 unit/gram topical 1 applic topical BID #14 grams 04/19/24 05/09/24 05/08/24 Rx ointment cephalexin 500 mg capsule 500 mg PO BID #14 caps 05/03/24 05/09/24 05/09/24 07:00 Rx Magnalife See Rx Instructions .Route .COMPLEX 05/09/24 05/09/24 05/08/24 History calcium carb 333 mg-vit D3 133 1 tab PO DAILY 05/09/24 05/09/24 05/08/24 History unit-mag ox 133 mg-zinc oxide 5 mg tab carbidopa 25 mg-levodopa 100 mg 0.5 ea PO TID Restless Leg Syndrome 05/09/24 05/09/24 05/08/24 History tablet losartan 25 mg tablet 25 mg PO DAILY 05/09/24 05/09/24 05/08/24 History potassium chloride 20 mEq 20 meq PO BID PRN low potassium 05/09/24 05/09/24 Unknown History tablet,extended release (currently not scheduled) vitamin E 268 mg (400 unit) capsule 268 mg PO DAILY 05/09/24 05/09/24 05/08/24 History zolpidem 5 mg tablet 5 mg PO BEDTIME PRN Insomnia 05/09/24 05/09/24 Unknown History Allergies Allergy/AdvReac Type Severity Reaction Status Date / Time gabapentin Allergy ALGY-Rash Verified 05/09/24 09:33 Current Medications Generic Name Dose Route Start Last Admin Trade Name Brianq PRN Reason Stop Dose Admin Albuterol/Ipratropium 3 ml 05/09/24 15:16 05/09/24 15:49 Ipratropium-Albuterol 3 Ml Neb INHALATION 3 ml Q6H PRN Administration SHORTNESS OF BREATH Diltiazem HCl 30 mg 05/09/24 17:00 05/09/24 16:32 Diltiazem 30 Mg Tablet PO 30 mg QID AMANDA Administration Docusate Sodium 100 mg 05/09/24 18:00 05/09/24 16:32 Docusate Sodium 100 Mg Capsule PO 100 mg BID AMANDA Administration Furosemide 80 mg 05/09/24 15:15 05/09/24 16:03 Furosemide 10 Mg/Ml Sdv 10ml IVP 80 mg Q12H AMANDA Administration Guaifenesin 600 mg 05/09/24 18:00 05/09/24 16:33 Guaifenesin 600 Mg Tablet PO 600 mg BID AMANDA Administration Methylprednisolone Sodium Succinate 60 mg 05/09/24 15:30 05/09/24 16:02 Methylprednisolone Sod Succ 125 Mg/2 Ml Inj IVP 60 mg Q12H AMANDA Administration Ranolazine 500 mg 05/09/24 18:00 05/09/24 16:30 Ranolazine (12hr) 500 Mg Tablet PO 500 mg BID AMANDA Administration Ropinirole HCl 1 mg 05/09/24 18:00 05/09/24 16:32 Ropinirole 2 Mg Tablet PO 1 mg QPM AMANDA Administration PFSH Acute PFSH: Medical History COPD (chronic obstructive pulmonary disease) RLS (restless legs syndrome) On carbidopa and Requip for this Aortic stenosis Peripheral arterial disease HTN (hypertension), benign Atrial fibrillation Diastolic CHF CKD (chronic kidney disease) Lower extremity edema Hypoxia Chronic stable angina Community acquired pneumonia Cellulitis and abscess of left leg Tobacco abuse SHARON (obstructive sleep apnea) Prescribed CPAP auto-titrating 5-9cm but not using due to feeling like suffocating; on oxygen at night History of sleep study (01/2021) severe obstructive sleep apnea, optimal pressure setting 6cm, with recommendation for auto-titrating CPAP 5-9 cm Atherosclerosis of leg with intermittent claudication History of cardioversion 03/16/2019 BPH (benign prostatic hyperplasia) Hyperlipidemia CAD (coronary artery disease) Varicose veins of bilateral lower extremities with other complications Surgical History S/P coronary angiogram 04/29/2007, 11/20/2021 ([facility]) S/P carotid endarterectomy S/P AAA (abdominal aortic aneurysm) repair with [place] endograft S/P femoral-femoral bypass surgery S/P CABG (coronary artery bypass graft) 1988 X1, 2007 X2 Family History Brother Cancer CAD (coronary artery disease) Diabetes Mother Heart disease CAD (coronary artery disease) Diabetes Sister CAD (coronary artery disease) Denies family history of Clotting disorder Dementia Chronic kidney disease (CKD) Suicide Anesthesia complication Bleeding disorder Lung disease Stroke Social History Smoking and tobacco/nicotine status: current every day tobacco/nicotine user Alcohol intake: never Substance/Drug Use: never Lives independently: No Household members: spouse Marital status: Vitals/I&O/Wt Last Vital Signs Temp 93.0 F L 05/09/24 16:00 Pulse 89 05/09/24 16:53 Resp 20 H 05/09/24 16:00 BP 127/70 05/09/24 16:00 Pulse Ox 99 05/09/24 16:53 O2 Del Method Nasal Cannula 05/09/24 16:00 O2 Flow Rate 4 05/09/24 16:00 FiO2 30 05/09/24 16:53 05/09/24 05/09/24 05/09/24 06:59 14:59 22:59 Intake Total 55 / 55 295 / 350 Balance 55 / 55 295 / 350 Weight last 48 hrs Weight 208 lb 5.389 oz Weight 200 lb Physical Exam Narrative: GENERAL: The patient is alert and slightly tachypneic. Complaining of some chest discomfort but is improving since he had a blood transfusion HEENT: No significant pallor, icterus or lymphadenopathy.Oral cavity: There are no mucous membrane lesions. NECK: Trachea appears to be central. No masses noted. No JVD or thyromegaly appreciated. RESPIRATORY: Chest is symmetrical. No intercostals muscle retraction or any accessory muscle activation. There is no chest wall tenderness. Breath sounds are heard bilaterally. Few scattered Rales at the bases BREASTS: Deferred. HEART: The heart sounds are normal. No S3 or S4. Short systolic murmur in the left renal border. No pericardial rub ABDOMEN: No vessel pulsations or distention. No tenderness. No organomegaly appreciated. Bowel sounds are normally heard. : Deferred. RECTAL: Deferred. LYMPHATIC: No lymphadenopathy noted in the neck. EXTREMITIES: 2+ edema both lower extremities. Some weeping ulcers on the anterior aspect of the right leg MUSCULOSKELETAL: No acute joint deformities or swelling SKIN: There are no significant rashes or ecchymosis. Features of chronic venous stasis and stasis dermatitis especially on the left leg NEUROPSYCHIATRIC: The patient is alert and oriented x3. Slightly tachypneic. Urinary Catheter Management: Squires: Cath Placed During This Visit: yes Urinary Catheter Date of Insertion: 05/09/24 Urinary Catheter Time of Insertion: 14:29 Data 05/10/24 04:46 05/10/24 04:46 Other Labs: Laboratory Last Values WBC 12.55 10^3/uL (3.29-11.43) H 05/09/24 09:58 RBC 2.18 10^6/uL (3.85-5.65) L 05/09/24 09:58 Hgb 7.10 g/dL (11.27-16.99) L 05/09/24 09:58 Hct 23.7 % (37-53) L 05/09/24 09:58 MCV 108.7 fl (82-101) H 05/09/24 09:58 MCH 32.6 pg (27-33) 05/09/24 09:58 MCHC 30.0 g/dL (30-55) 05/09/24 09:58 RDW 16.4 % (12.1-15.1) H 05/09/24 09:58 Plt Count 280 10^3/cmm (157-399) 05/09/24 09:58 MPV 9.8 fL (7.4-10.4) 05/09/24 09:58 Neut % (Auto) 85.8 % 05/09/24 09:58 Lymph % (Auto) 4.9 % 05/09/24 09:58 [place] % (Auto) 7.7 % 05/09/24 09:58 Eos % (Auto) 0.3 % 05/09/24 09:58 Baso % (Auto) 0.2 % 05/09/24 09:58 Neut # (Auto) 10.77 10^3/uL (1.8-7.7) H 05/09/24 09:58 Lymph # (Auto) 0.6 10^3/uL (0.8-4.8) L 05/09/24 09:58 [place] # (Auto) 1.0 10^3/uL (0.2-0.9) H 05/09/24 09:58 Eos # (Auto) 0.0 10^3/uL (0.0-0.8) 05/09/24 09:58 Baso # (Auto) 0.0 10^3/uL (0.0-0.1) 05/09/24 09:58 Nucleated RBC % (auto) 0 % 05/09/24 09:58 Nucleated RBCs # 0.0 /100WBC 05/09/24 09:58 PT 22.80 SECONDS (12.1-14.9) H 05/09/24 15:45 INR 1.93 (0.8-1.2) H 05/09/24 15:45 APTT 47.3 SECONDS (23.9-36.7) H 05/09/24 15:45 Specimen Type Arterial 05/09/24 09:50 Sample Site Brachial, left 05/09/24 09:50 ABG pH 7.38 (7.35-7.45) 05/09/24 09:50 ABG pCO2 41.4 mmHg (35-45) 05/09/24 09:50 ABG pO2 104.0 mmHg (80.0-100.0) H 05/09/24 09:50 ABG PO2/FiO2 Ratio 0 05/09/24 09:50 ABG HCO3 24.7 mmol/L (22-26) 05/09/24 09:50 ABG O2 Saturation 99.5 05/09/24 09:50 ABG Base Excess -0.4 mmol/L (-2.0-2.0) 05/09/24 09:50 Crispin Test N/a 05/09/24 09:50 A-a O2 Gradient 13.1 mmHg (5-10) H 05/09/24 09:50 Hematocrit 22.1 % (42-52) L 05/09/24 09:50 Hgb O2 Saturation 95.5 % (95-100) 05/09/24 09:50 Carboxyhemoglobin 3.7 %THgb (0.4-20.1) 05/09/24 09:50 Methemoglobin 0.4 % (0.4-1.5) 05/09/24 09:50 Total Hemoglobin 7.2 g/dL (14-18) L 05/09/24 09:50 Sodium 132.0 mmol/L (131-143) 05/09/24 09:50 Potassium 4.7 mmol/L (3.5-5.0) 05/09/24 09:50 Glucose 97.0 mg/dL (70-115) 05/09/24 09:50 Ionized Calcium 1.2 mmol/L (1.1-1.4) 05/09/24 09:50 O2 Delivery Device Nc 05/09/24 09:50 O2 Liters/Min 4.0 % 05/09/24 09:50 FiO2 36.0 % 05/09/24 09:50 Machine Tracer ID Amh 05/09/24 09:50 Sodium 134 mmol/L (136-145) L 05/09/24 09:58 Potassium 5.2 mmol/L (3.5-5.1) H 05/09/24 09:58 Chloride 97 mmol/L (98-107) L 05/09/24 09:58 Carbon Dioxide 24 mmol/L (22-29) 05/09/24 09:58 Anion Gap 18.2 (5-19) 05/09/24 09:58 BUN 99 mg/dL (8-23) H* 05/09/24 09:58 Creatinine 3.4 mg/dL (0.7-1.2) H 05/09/24 09:58 GFR Calculation Not Reportable 05/09/24 09:58 Glucose 90 mg/dL (65-115) 05/09/24 09:58 Calculated Osmolality 308 mOsm/kg (285-295) H 05/09/24 09:58 Lactic Acid 1.6 mmol/L (0.5-2.2) 05/09/24 09:58 Uric Acid 11.9 mg/dL (3.4-7.0) H 05/09/24 09:58 Calcium 8.2 mg/dL (8.5-10.5) L 05/09/24 09:58 Phosphorus 6.2 mg/dL (2.5-4.5) H 05/09/24 09:58 Magnesium 3.1 mg/dL (1.7-2.3) H 05/09/24 09:58 Iron 55 ug/dL (59-158) L 05/09/24 09:58 TIBC 315 mcg/dl 05/09/24 09:58 % Saturation 17.4 % (20-50) L 05/09/24 09:58 Unsat Iron Binding 260 ug/dL (112-347) 05/09/24 09:58 Total Bilirubin 0.6 mg/dL (0.15-1.2) 05/09/24 09:58 AST 18 U/L (0-40) 05/09/24 09:58 ALT < 5 U/L (0-41) 05/09/24 09:58 Alkaline Phosphatase 98 U/L (40-130) 05/09/24 09:58 Troponin T Baseline 74 ng/L (0-15) H 05/09/24 09:58 Troponin T 120 Minute 72.15 ng/L (0-15) H 05/09/24 13:05 Delta Troponin T -1.85 ABS# (0-10) L 05/09/24 13:05 Troponin T Hi Sens 6Hr 61.14 ng/L (0-15) H 05/09/24 15:45 Troponin T Hi Sens 6Hr Delta -12.86 ng/L (0-12) L 05/09/24 15:45 C-Reactive Protein 26.9 mg/L (0.0-4.9) H 05/09/24 09:58 NT-Pro-B Natriuret Pep 2199 pg/mL (0-450) H 05/09/24 09:58 Total Protein 5.3 g/dL (6.6-8.7) L 05/09/24 09:58 Albumin 3.2 g/dL (3.5-5.2) L 05/09/24 09:58 Globulin 2.1 g/dL (1.3-4.6) 05/09/24 09:58 Urine Color Yellow (Yellow) 05/09/24 14:27 Urine Appearance Clear (CLEAR) 05/09/24 14:27 Urine pH 5 (5-7) 05/09/24 14:27 Ur Specific [place] 1.020 (1.005-1.030) 05/09/24 14:27 Urine Protein Trace (Negative) 05/09/24 14:27 Urine Glucose (UA) Norm (Normal) 05/09/24 14:27 Urine Ketones 1+ (Negative) H 05/09/24 14:27 Urine Blood Neg (Negative) 05/09/24 14:27 Urine Nitrate Negative (Negative) 05/09/24 14:27 Urine Bilirubin Neg (Negative) 05/09/24 14:27 Urine Urobilinogen Neg mg/dL (Negative) 05/09/24 14:27 Ur Leukocyte Esterase Negative (Negative) 05/09/24 14:27 Urine RBC Rare /hpf (0-2) 05/09/24 14:27 Urine WBC 0-4 /hpf (0-5) H 05/09/24 14:27 Ur Squamous Epith Cells 0-4 /hpf (0-5) H 05/09/24 14:27 Ur Transition Epith Cell 0-4 /hpf 05/09/24 14:27 Amorphous Sediment Not Reportable 05/09/24 14:27 Urine Bacteria 1+ /hpf (NONE) H 05/09/24 14:27 Hyaline Casts 15-25 /lpf H 05/09/24 14:27 Urine Mucus Trace /hpf 05/09/24 14:27 Adenovirus (PCR) Not detected (NOT DETECT) 05/09/24 10:00 C. pneumoniae DNA (PCR) Not detected (NOT DETECT) 05/09/24 10:00 Coronavirus 229E (PCR) Not detected (NOT DETECT) 05/09/24 10:00 Human Metapneumovir PCR Not detected (NOT DETECT) 05/09/24 10:00 Influenza A (H1) PCR Not detected (NOT DETECT) 05/09/24 10:00 Influ A (H1/09) PCR Not detected (NOT DETECT) 05/09/24 10:00 Influenza A (H3) PCR Not detected (NOT DETECT) 05/09/24 10:00 Influenza Type A (PCR) Not detected (NOT DETECT) 05/09/24 10:00 Influenza Type B (PCR) Not detected (NOT DETECT) 05/09/24 10:00 M. pneumoniae (PCR) Not detected (NOT DETECT) 05/09/24 10:00 Parainfluenza 1 (PCR) Not detected (NOT DETECT) 05/09/24 10:00 Parainfluenza 2 (PCR) Not detected (NOT DETECT) 05/09/24 10:00 Parainfluenza 3 (PCR) Not detected (NOT DETECT) 05/09/24 10:00 Parainfluenza 4 (PCR) Not detected (NOT DETECT) 05/09/24 10:00 RSV Type A (PCR) Not detected (NOT DETECT) 05/09/24 10:00 RSV Type B (PCR) Not detected (NOT DETECT) 05/09/24 10:00 Entero/Rhino (PCR) Not detected (NOT DETECT) 05/09/24 10:00 SARS-CoV-2 (PCR) Not detected (NOT DETECT) 05/09/24 10:00 Blood Type O Positive 05/09/24 10:17 Rho(D) Type Rh positive 05/09/24 10:17 Antibody Screen Negative 05/09/24 10:17 Crossmatch See Detail 05/09/24 10:17 Micro: Microbiology 05/09/24 15:45 Blood Culture - Preliminary Blood SPECIMEN COLLECTED 05/09/24 13:05 Blood Culture - Preliminary Blood SPECIMEN COLLECTED Other data: ECHO April 2023 LV systolic function is normal with EF 50 to 55%. RV is mild to moderately hypokinetic Biatrial enlargement. Mild mitral regurgitation Mild aortic stenosis with aortic valve area of 1.27 cm squared with mean gradient across aortic valve of 11 mmHg Mild aortic regurgitation Mild tricuspid regurgitation Mild pulmonic regurgitation No comparison studies are available A&P Assessment and plan (1) Atherosclerotic heart disease of [place] coronary artery with unstable angina pectoris: Because of the complexities of the coronary lesions, optimizing the medications will be the plan of action. However if the pain gets any worse, patient may require transfer to another facility where complex coronary interventions can be performed. This was discussed with the patient and his family in detail which is understood well. I may get serial cardiac enzymes to evaluate for any myocardial injury. I may [place] do a limited 2D echocardiogram to evaluate LV function Qualifiers: [place] vs. transplanted heart: [place] heart Qualified Code(s): I25.110 - Atherosclerotic heart disease of [place] coronary artery with unstable angina pectoris (2) Hypotension: This could be multifactorial. Heart failure, anemia, coronary ischemia, etc. are contributing factors. Currently the blood pressure seems to have improved. May continue on the current management. Qualifiers: Hypotension type: other hypotension type Qualified Code(s): I95.89 - Other hypotension (3) Atrial fibrillation: Patient is in atrial fibrillation with controlled ventricular response rate. May continue on the current treatment. Qualifiers: Atrial fibrillation type: persistent (not longstanding) Qualified Code(s): I48.19 - Other persistent atrial fibrillation (4) Acute on chronic diastolic heart failure: Careful IV diuresis. (5) Hyperlipidemia: May continue on the current medication Qualifiers: Hyperlipidemia type: unspecified Qualified Code(s): E78.5 - Hyperlipidemia, unspecified (6) Peripheral arterial disease: Clinically seems to be stable. Will continue on the current management. (7) Acute kidney injury superimposed on chronic kidney disease: Etiology is not clear. (8) Anemia: The etiology is not clear. He may need further workup. Qualifiers: Anemia type: unspecified type Qualified Code(s): D64.9 - Anemia, unspecified Plan Based on the patient clinical progress and the results of the above, further recommendations will be made. Consult Attestations Medical Necessity Statement: Patient requires continued hospital stay for close monitoring and further management Coding Level of Care Code 57604 Diagnoses Atherosclerosis of [place] coronary artery of [place] heart with unstable angina pectoris I25.110 [place] vs. transplanted heart: [place] heart Other specified hypotension I95.89 Hypotension type: other hypotension type Persistent atrial fibrillation I48.19 Atrial fibrillation type: persistent (not longstanding) Acute on chronic diastolic heart failure I50.33 Hyperlipidemia, unspecified hyperlipidemia type E78.5 Hyperlipidemia type: unspecified Peripheral arterial disease I73.9 Acute kidney injury superimposed on chronic kidney disease N17.9; N18.9 Anemia D64.9 Anemia type: unspecified type
--- NOTE | 2024-05-09 17:48 | PC.NURSE ---
Nitro drip Use nitro drip if chest pain gets worse. Currently 04/25. Was given Ranexa.
--- NOTE | 2024-05-09 17:50 | PC.NURSE ---
Visitor may spend the night per Jaz.
[2024-05-09] MEDS: vancomycin 1,000 MG in sodium chloride 0.9% 250 ML 250 MG IV (18:06)
--- NOTE | 2024-05-09 18:13 | USCV_ITS ---
Steven Tee Age: 89 Gender: M : 1935 Exam Date: 05/09/2024 19:17 Ordering Phys: José Luis Becker MD ([email or web address]) Technologist: FLETCHER [place] [facility] [place]: Long-term smoker continues smoking. Chronic hypoxemia, cronic afib, chronic renal failure. O2 dependent 2L. BP: 127 / 70 HR: 72 Rhythm: Atrial fibrillation Technical Quality: Adequate MEASUREMENTS (Male / Female) Normal Values 2D ECHO LV Diastolic Diameter PLAX 5.1 cm 4.2 - 5.9 / 3.9 - 5.3 cm IVS Diastolic Thickness 1.6 cm 0.6 - 1.0 / 0.6 - 0.9 cm IVS Systolic Thickness 2.1 cm LVPW Diastolic Thickness 1.6 cm 0.6 - 1.0 / 0.6 - 0.9 cm LVPW Systolic Thickness 1.4 cm LVOT Diameter 1.8 cm LV Ejection Fraction 2D Teich 54.2 % LV Ejection Fraction MOD 2C 50.9 % LV Ejection Fraction 2C AL 52.3 % LA Diameter 6.4 cm Aorta at Sinotubular Diameter 3.1 cm IVC Diameter 2.8 cm M-MODE LA Ao Ratio MM 2.1 AV Cusp Separation MM 0.6 cm DOPPLER AV Peak Velocity 294.0 cm/s LVOT Peak Velocity 76.0 cm/s AV Area Cont Eq vti 0.6 cm squared AV Area Cont Eq pk 0.6 cm squared MV Peak Velocity 119.0 cm/s MV Area PHT 5.5 cm squared Mitral E to A Ratio 0.0 TR Peak Velocity 299.0 cm/s TR Peak Gradient 35.8 mmHg TV Peak E Velocity 55.0 cm/s Right Atrial Pressure 15.0 mmHg Pulmonary Artery Systolic Pressu 50.8 mmHg PV Peak Velocity 97.0 cm/s FINDINGS Left Ventricle Normal LV size with a slightly diminished ejection fraction of 52%. Mild diffuse hypokinesia of the septal and anteroseptal segments Right Ventricle Normal RV size with a slightly diminished ejection fraction Right Atrium Moderately increased right atrial size. Left Atrium Moderately increased left atrial size. Mitral Valve At least moderate mitral valve regurgitation.mild mitral annular calcification. Aortic Valve Severe low gradient aortic valve stenosis, mean gradient 15 mmHg, ANA 0.55 cm squared.trace to mild aortic valve regurgitation. Peak velocity of 2.94 m/s with a peak gradient of 35 mmHg Tricuspid Valve [id number] tricuspid valve regurgitation. Estimated pulmonary artery peak systolic pressure 51 mmHg Pulmonic Valve Mild pulmonary valve regurgitation. Pericardium Normal pericardium without effusion. Aorta Moderate dense plaque in the ascending aorta. IVC The inferior vena cava appears normal. CONCLUSIONS Normal LV size with a slightly diminished ejection fraction of 52%. Mild diffuse hypokinesia of the septal and anteroseptal segments. Severe low gradient aortic valve stenosis, mean gradient 15 mmHg, ANA 0.55 cm squared.trace to mild aortic valve regurgitation. Peak velocity of 2.94 m/s with a peak gradient of 35 mmHg. At least moderate mitral valve regurgitation. Moderate biatrial enlargement. [id number] tricuspid valve regurgitation. Estimated pulmonary artery peak systolic pressure 51 mmHg. Mild pulmonary valve regurgitation. Moderate dense plaque in the ascending aorta. There is no pericardial effusion. There are no intracardiac masses. Compared to the study from 02/24/2023, there is some worsening of the aortic valve stenosis and mitral regurgitation Dr José Luis Becker MD [facility] (Electronically Signed) Final Date: 10 May 2024 20:58 S
[2024-05-09 18:38] LABS: Basophils % 0.1 %; Hematocrit 26.5 % (37-53); Lymphocytes # 0.1 10^3/uL (0.8-4.8); Lymphocytes % 0.8 %; Mean Corpuscular HGB Conc 30.9 g/dL (30-55); Mean Corpuscular Hemoglobin 31.5 pg (27-33); Mean Corpuscular Volume 101.9 fl (82-101); Mean Platelet Volume 9.3 fL (7.4-10.4); Monocytes # 0.1 10^3/uL (0.2-0.9); Monocytes % 0.5 %; Neutrophils # 9.51 10^3/uL (1.8-7.7); Neutrophils % 97.5 %; Nucleated Red Blood Cells % 0 %; Platelet Count 223 10^3/cmm (157-399); Red Cell Distribution Width 20.5 % (12.1-15.1); White Blood Count 9.76 10^3/uL (3.29-11.43)
[2024-05-09] MEDS: lactobacillus 1 Tablet 2 TAB PO (18:42)
[2024-05-09] MEDS: nitroglycerin drip 50 MG/250 ML PREMIX IV (18:47)
[2024-05-09] MEDS: morphine 4 mg/mL SDV 1 mL 2 MG IVP ×2 (19:42→22:55)
[2024-05-09] MEDS: carbidopa-levodopa 25-100mg Tablet 0.5 EACH PO (21:06)
[2024-05-09] MEDS: atorvastatin 40 mg Tablet PO (21:06)
[2024-05-09] MEDS: apixaban 5 mg Tablet 2.5 MG PO (21:06)
[2024-05-09] MEDS: sennosides 8.6 mg Tablet 17.2 MG PO (21:06)
[2024-05-09] MEDS: finasteride 5 mg Tablet PO (21:07)
[2024-05-09] MEDS: bacitracin ointment Pkt 1 EACH TOPICAL (21:07)
[2024-05-09] MEDS: cephALEXin 500 mg Capsule PO (21:07)
[2024-05-09] MEDS: clotrimazole-betamethasone cream 15gm 1 APPLIC TOPICAL (21:07)
[2024-05-09] MEDS: ferric gluconate 125 MG in sodium chloride 0.9% (100 ml) 100 ML 110 MG IV (22:20)
[2024-05-10] VITALS (53 sets, daily range): BP systolic 76–121; BP diastolic 41–104; PULSE 59–88; RESP 11–26; TEMP 36.3–36.9; O2SAT 81–99
[2024-05-10] MEDS: ipratropium-albuterol 3 mL Neb INHALATION ×4 (02:42→19:53)
[2024-05-10] MEDS: methylPREDNISolone sod succ 125 mg/2 mL INJ 60 MG IVP ×2 (02:58→15:48)
[2024-05-10] MEDS: FUROsemide 10 mg/mL SDV 10mL 80 MG IVP (02:58)
[2024-05-10 04:26] LABS: ABG PCO2 33.6 mmHg (35-45); ABG PH Result 7.45 (7.35-7.45); Arterial Blood Gas Hematocrit 25.3 % (42-52); Base Excess ABG -0.6 mmol/L (-2.0-2.0); Blood Gas Allen Test Pos; Blood Gas Operator Identificat MONRO; Blood Gas Sample Site Radial, right; Blood Gas Sample Type Arterial; HCO3 ABG 23.2 mmol/L (22-26); Oxygen Device BIPAP; PO2 ABG 64.4 mmHg (80.0-100.0); PO2 FiO2 Ratio Arterial Blood 0
[2024-05-10 05:01] LABS: Basophils % 0.1 %; Hematocrit 25.7 % (37-53); Lymphocytes # 0.2 10^3/uL (0.8-4.8); Lymphocytes % 1.9 %; Mean Corpuscular HGB Conc 31.1 g/dL (30-55); Mean Corpuscular Hemoglobin 31.5 pg (27-33); Mean Corpuscular Volume 101.2 fl (82-101); Mean Platelet Volume 9.6 fL (7.4-10.4); Monocytes # 0.1 10^3/uL (0.2-0.9); Monocytes % 0.8 %; Neutrophils # 10.62 10^3/uL (1.8-7.7); Nucleated Red Blood Cells % 0 %; Platelet Count 239 10^3/cmm (157-399); Red Blood Count 2.54 10^6/uL (3.85-5.65); Red Cell Distribution Width 22.1 % (12.1-15.1); White Blood Count 11.06 10^3/uL (3.29-11.43)
[2024-05-10] MEDS: morphine 4 mg/mL SDV 1 mL 2 MG IVP ×2 (05:21→16:45)
[2024-05-10 05:29] LABS: Calcium 8.5 mg/dL (8.5-10.5); Carbon Dioxide 22 mmol/L (22-29); Chloride 97 mmol/L (98-107); Glucose 126 mg/dL (65-115); Osmolality Calculated 313 mOsm/kg (285-295); Sodium 134 mmol/L (136-145)
[2024-05-10 05:39] LABS: Phosphorus 6.8 mg/dL (2.5-4.5)
[2024-05-10 05:46] LABS: Anion Gap 20.3 (5-19); Blood Urea Nitrogen 106 mg/dL (8-23); Creatinine Clr Calc Pharmacy 16.5814; Potassium 5.3 mmol/L (3.5-5.1)
--- NOTE | 2024-05-10 09:23 | PC.CHAP ---
Pastoral Care Encounter/Spiritual Assessment Type of Contact [] Declined gallery director visit [] Patient/Family/Request visit [] Outpatient visit [] Follow-up visit [] Physician referral [] Code/Alert [x] Routine visit [] Staff referral [] Actively dying [] Patient sleeping [x] Family support [] [] Out of room [] Palliative care [] [] Receiving care in room [] Pre-surgical visit [] Trauma [] Long length of stay [] ICU visit [] Other: Relational/Emotional Strength [x] Patient feels connected with others/family/visitors/staff [] Distress [] Loneliness/isolation [] Abandonment Spirituality of Patient [x] Person of [place] [x] Attends Latter Day of their [place] [x] Believes in Prayer [x] Reads Bible or Quaker materials [] There are Spiritual issues to be addressed Service Secretary Interventions [x] Prayer [x] Active listening [x] Non-anxious presence [x] Spiritual/emotional support [] Crisis/trauma care [] Spiritual counseling [] Bereavement support [] Provided bereavement packet [] Provided Bible/devotional materials [] Provided toy/stuffed animal, coloring book to patient or family member [] Provided Communion [] Anointing/[place] [] Salvation [x] Completed spiritual assessment [] Other: Impact on Illness or Injury [] Angry [] Fearful [] Anxious [] Often cries [] Exhaustion [] Unable to work [] Unable to attend congregational [] Unable to walk/stand [] Unable to read [] Unable to drive [] Unable to eat/drink [] Unable to sleep [] Unable to be with family [] Patient intubated [] Other: Summary Time spent with patient 15 min
[2024-05-10] MEDS: ferrous sulfate EC 325 mg Tablet PO ×2 (09:30→17:51)
[2024-05-10] MEDS: lactobacillus 1 Tablet 2 TAB PO (09:31)
[2024-05-10] MEDS: dilTIAZem 30 mg Tablet PO (09:31)
[2024-05-10] MEDS: docusate sodium 100 mg Capsule PO ×2 (09:31→17:52)
[2024-05-10] MEDS: ranolazine (12HR) 500 mg Tablet PO ×2 (09:31→17:51)
[2024-05-10] MEDS: allopurinol 100 mg Tablet PO (09:32)
[2024-05-10] MEDS: tamsulosin 0.4 mg Capsule PO (09:33)
[2024-05-10] MEDS: pantoprazole DR 40 mg Tablet PO (09:33)
[2024-05-10] MEDS: carbidopa-levodopa 25-100mg Tablet 0.5 EACH PO ×3 (09:33→20:11)
[2024-05-10] MEDS: clopidogrel 75 mg Tablet PO (09:33)
[2024-05-10] MEDS: guaiFENesin 600 mg Tablet PO ×2 (09:34→17:51)
[2024-05-10] MEDS: meropenem 500 MG in sodium chloride 0.9% (plus) 50 ML 100 MG IV ×2 (09:37→20:11)
[2024-05-10] MEDS: bacitracin ointment Pkt 1 EACH TOPICAL ×3 (09:43→20:12)
[2024-05-10] MEDS: clotrimazole-betamethasone cream 15gm 1 APPLIC TOPICAL ×3 (10:07→22:30)
--- NOTE | 2024-05-10 10:19 | USCV_ITS ---
Steven Tee Age: 89 Gender: M : 1935 Exam Date: 05/10/2024 10:37 Ordering Phys: Guera Riggs MD Technologist: Exam Location: [facility] [place] Indication: Rt leg poor pusles Risk Factors: Previous Vascular Surgery: RIGHT LEFT BP: 99.00 / 70.00 BP: 99.00/ 70.00 Waveform Velocity (cm/s) Velocity (cm/s) Waveform Biphasic 226.0 Iliac Prox Biphasic 226.0 Iliac Mid Biphasic 214.0 Iliac Distal Monophasic 109.0 FULL STACK DEVELOPER Monophasic 107.0 SFA Prox Monophasic 47.0 SFA Mid Monophasic 43.0 SFA Dist Monophasic 35.0 POP Monophasic 37.0 MANAGER MARKETING SALES Monophasic 37.0 DPA FINDINGS The WANDY could not be performed. On the right side The Doppler waveforms were low amplitude, monophasic and continuous in the popliteal, posterior tibial and dorsalis pedis arteries. Moderate diffuse plaques are noted in the iliac and, femoral and popliteal artery. CONCLUSIONS Moderate diffuse plaque in the iliac, femoral and popliteal artery on the right side. Abnormal Doppler waveforms in the popliteal and infrapopliteal arteries , suggestive of high-grade proximal stenosis with collateral filling of these vessels. Consider CTA, to better evaluate these arteries, if clinically indicated Comparison with the previous study is difficult because of the differences in the technical quality Dr José Luis Becker MD [facility] (Electronically Signed) Final Date: 10 May 2024 21:19 S US/[place] [id number] IMPRESSION: 1. Abnormal monophasic arterial waveforms from the level of the mid to distal superficial femoral artery and distally within the right leg, suggesting significant runoff disease. 2. Moderate systolic velocity elevation or stenosis of the right common iliac artery also noted. 3. No occlusion is seen. 4. WANDY not obtained due to poor skin condition.
--- NOTE | 2024-05-10 10:19 | USR_ITS ---
PROCEDURE INFORMATION: Exam: US Duplex Right Lower Extremity Arteries Or Arterial Bypass Grafts Exam date and time: 05/10/2024 10:37 AM Age: 89 years old Clinical indication: Other: Open wounds; Additional info: Swelling, redness TECHNIQUE: Imaging protocol: Right Real-time duplex scan of the arteries or arterial bypass grafts of the right lower extremity with 2-D walker scale, color Doppler flow and spectral waveform analysis. Images documented and saved. COMPARISON: US renal BI* [id number] 03/09/2024 2:58 PM FINDINGS: Right common iliac artery: Multiphasic waveform is seen. Systolic velocity of 214 to 226 cm/s suggest moderate systolic velocity elevation/stenosis. No occlusion. Right common femoral artery: No occlusion or significant stenosis. Multiphasic waveform. No pseudoaneurysm in the inguinal region. Right superficial femoral artery: No occlusion or significant stenosis. Multiphasic waveform proximally and monophasic waveform mid and distal aspect. Right popliteal artery: No occlusion or significant stenosis. Monophasic waveform. Right calf/foot arteries: No occlusion or significant stenosis in the visualized arteries. Monophasic waveforms in the anterior and posterior tibial arteries. Peroneal artery not attempted. Dorsalis pedis artery is patent with monophasic waveform. Soft tissues: No hematoma or collection.
--- NOTE | 2024-05-10 10:20 | CTR_ITS ---
PROCEDURE INFORMATION: Exam: CT Right Lower Extremity Without Contrast; Lower Leg Exam date and time: 05/10/2024 11:15 AM Age: 89 years old Clinical indication: Cellulitis; Lower leg; Right; Additional info: Suspected abcess, from knee to ankle TECHNIQUE: Imaging protocol: CT of the right lower extremity without contrast was performed. Exam focused on the lower leg. Radiation optimization: All CT scans at this facility use at least one of these dose optimization techniques: automated exposure control; mA and/or kV adjustment per patient size (includes targeted exams where dose is matched to clinical indication); or iterative reconstruction. COMPARISON: No relevant prior studies available. RADIATION DOSE METRICS: Total DLP (mGy-cm): 538.03 FINDINGS: Bones/joints: There is a large knee joint effusion containing several punctate calcified or ossified bodies in the suprapatellar region. Chondrocalcinosis is noted in the medial and lateral femorotibial compartments. There is benign-appearing calcification in the anterior and posterior cruciate ligaments. Small osteophytes arise from the distal tibia and talar dome. Small osteophytes are identified within the visualized midfoot articulations. There is benign-appearing calcification of the ligamentous structures in the sinus tarsi. Soft tissues: Diffuse moderate subcutaneous edema is present throughout the visualized distal thigh, lower leg and visualized ankle and foot region. Surgical clips in the subcutaneous fat of the medial aspect of the lower leg are noted. No soft tissue gas is identified. An ovoid region of slightly hyperdense skin thickening along the anterolateral mid lower leg is noted measuring approximately 1.6 x 0.8 x 2.1 cm on series 12, image 143 and series 15, image 61. Atherosclerotic changes within the lower leg are noted. CT/CT lower leg RT wo con* [id number] IMPRESSION: 1. Diffuse subcutaneous edema is noted and is nonspecific. This may be related to noninfectious inflammatory changes, venous stasis or cellulitis. No abscess is identified. 2. A mild focus of slightly hyperdense skin thickening along the anterolateral mid lower leg is noted which may be inflammatory in nature. The possibility of a small hematoma in this region is not excluded. 3. Large knee joint effusion containing small ossified or calcified bodies. 4. 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 5. Primary osteoarthritic changes of the ankle. 6. Additional nonurgent findings as detailed above.
--- NOTE | 2024-05-10 12:25 | P.PN_ITS ---
Subjective 2 Subjective: Patient was complaining of leg pain at rest which gets better when he makes some dependent to gravity Mild bluish tent noted below the toes otherwise I do not see any active sign of vascular ischemia Feet are slightly colder to touch as compared to lower [place] area Patient has multiple acute petechia ecchymosis Purulent cellulitis of the right leg Currently on 5 L nasal cannula Blood pressure borderline Patient is full code Hemolyzed BMP panel showing hyperkalemia Creatinine 3.5 Hemoglobin stable at 8 Holding off on Eliquis for now Waiting on FOBT Cardiology recommended medical management Vitals/I&O/Wt Last Vital Signs Temp 97.9 F 05/10/24 12:00 Pulse 75 05/10/24 12:00 Resp 13 05/10/24 12:00 BP 100/59 05/10/24 12:00 Pulse Ox 90 05/10/24 12:00 O2 Del Method Nasal Cannula 05/10/24 07:47 O2 Flow Rate 5 05/10/24 07:47 FiO2 30 05/10/24 02:45 05/09/24 05/10/24 05/10/24 22:59 06:59 14:59 Intake Total 704.65 / 759.65 460 / 1219.65 250 / 250 Output Total 550 / 550 Balance 154.65 / 209.65 460 / 669.65 250 / 250 Weight last 48 hrs Weight 94.5 kg Weight 90.718 kg Physical Exam 2 Narrative: Cold extremity without sign of vascular ischemia Purulent cellulitis right leg Anasarca A-fib without RVR Currently on 5 L Bilateral breath sounds with rhonchi and crackles Multiple petechia ecchymosis all over subcutaneous tissue Distended abdomen Cardiac wheezing present Urinary Catheter Management: Squires: Cath Placed During This Visit: yes Reason for Continuing Indwelling Catheter: Accurate Measurement of Urinary Output in Critically Ill Patients Urinary Catheter Date of Insertion: 05/09/24 Urinary Catheter Time of Insertion: 14:29 Data 05/10/24 04:46 05/10/24 04:46 Micro: Microbiology 05/09/24 15:45 Blood Culture - Preliminary Blood SPECIMEN COLLECTED 05/09/24 13:05 Blood Culture - Preliminary Blood SPECIMEN COLLECTED A&P Assessment and plan (1) Hypotension: Qualifiers: Hypotension type: other hypotension type Qualified Code(s): I95.89 - Other hypotension (2) Diastolic CHF: Qualifiers: Heart failure chronicity: acute on chronic Qualified Code(s): I50.33 - Acute on chronic diastolic (congestive) heart failure (3) Acute on chronic diastolic heart failure: (4) Aortic stenosis: (5) Peripheral arterial disease: (6) Chronic anticoagulation: (7) Acute kidney injury superimposed on chronic kidney disease: (8) BPH (benign prostatic hyperplasia): Qualifiers: Lower urinary tract symptom presence: symptoms present Lower urinary tract symptom detail: urinary hesitancy Qualified Code(s): N40.1 - Benign prostatic hyperplasia with lower urinary tract symptoms; R39.11 - Hesitancy of micturition (9) Cellulitis: (10) RLS (restless legs syndrome): (11) COPD with acute exacerbation: (12) On home oxygen therapy: (13) SHARON (obstructive sleep apnea): (14) Lower extremity edema: Plan Diastolic CHF exacerbation Currently on high-dose Lasix Monitor urine output correlate with creatinine Patient has anasarca May need to cut back on diuretic dose if blood pressure keeps trending down he has underlying aortic stenosis as well which will need preload support Acute on chronic kidney disease Creatinine not responding to IV diuretics as of now Monitor for next 24 hours May consult nephro if creatinine keeps getting worse Anemia of chronic disease: Status post 1 unit at admission No active signs of GI bleed FOBT pending Hold off on Eliquis Multiple petechia ecchymosis all over subcutaneous tissue Peripheral arterial disease Will request arterial duplex Not a candidate for angiogram Purulent cellulitis Requested Santyl daily twice a day dressing change Topical bacitracin Continue vancomycin at aztreonam Cardiac wheezing I am anticipating patient will get better with Lasix more than steroids I would like to give him 1 more day of steroids Acute on chronic hypoxia at home uses 2 L, currently on 5 Morbid obesity with anasarca Concern for cardiorenal syndrome with underlying diastolic CHF and aortic stenosis Coronary disease: Medical management as per cardiology Attestations 2 Medical Necessity Statement*: Continue medical management Diagnoses Other specified hypotension I95.89 Hypotension type: other hypotension type Acute on chronic diastolic congestive heart failure I50.33 Heart failure chronicity: acute on chronic Acute on chronic diastolic heart failure I50.33 Aortic stenosis I35.0 Peripheral arterial disease I73.9 Chronic anticoagulation Z79.01 Acute kidney injury superimposed on chronic kidney disease N17.9; N18.9 Benign prostatic hyperplasia with urinary hesitancy N40.1; R39.11 Lower urinary tract symptom presence: symptoms present Lower urinary tract symptom detail: urinary hesitancy Cellulitis L03.90 RLS (restless legs syndrome) G25.81 COPD with acute exacerbation J44.1 On home oxygen therapy Z99.81 SHARON (obstructive sleep apnea) G47.33 Lower extremity edema R60.0
[2024-05-10] MEDS: aztreonam 2,000 MG in sodium chloride 0.9% (plus) 100 ML 200 MG IV (12:55)
[2024-05-10] MEDS: FUROsemide 10 mg/mL SDV 10mL 60 MG IVP (13:00)
[2024-05-10] MEDS: collagenase oint 30 gm 1 APPLIC TOPICAL (13:46)
--- NOTE | 2024-05-10 16:44 | P.PN_ITS ---
Subjective 2 Subjective: The patient has significant improvement of the shortness of breath. Has not had any significant chest pain through the night. The IV nitroglycerin had to be discontinued because of the low blood pressure. The blood pressure seems to be soft today. According the patient, he is feeling much better. No fever or chills. No cough. Medications: Medication Review Details: Current Medications Acetaminophen (Acetaminophen 325 Mg Tablet) 650 mg PO Q6H PRN PRN Reason: MILD PAIN Albuterol/Ipratropium (Ipratropium-Albuterol 3 Ml Neb) 3 ml INHALATION Q6H.RESP [facility] Last Admin: 05/10/24 13:39 Dose: 3 ml Albuterol/Ipratropium (Ipratropium-Albuterol 3 Ml Neb) 3 ml INHALATION Q6H PRN PRN Reason: SHORTNESS OF BREATH Last Admin: 05/09/24 15:49 Dose: 3 ml Allopurinol (Allopurinol 100 Mg Tablet) 100 mg PO DAILY [facility] Last Admin: 05/10/24 09:32 Dose: 100 mg Amiodarone HCl (Amiodarone 200 Mg Tablet) 400 mg PO BID AMANDA Apixaban (Apixaban 5 Mg Tablet) 2.5 mg PO BID@0900,2100 [facility] Last Admin: 05/10/24 09:45 Dose: Not Given Atorvastatin Calcium (Atorvastatin 40 Mg Tablet) 40 mg PO BEDTIME [facility] Last Admin: 05/09/24 21:06 Dose: 40 mg Bacitracin (Bacitracin Ointment Pkt) 1 each TOPICAL TID [facility]; Protocol Last Admin: 05/10/24 15:49 Dose: 1 each Betamethasone/Clotrimazole (Clotrimazole-Betamethasone Cream 15gm) 1 applic TOPICAL TID [facility] Last Admin: 05/10/24 15:51 Dose: 1 applic Carbidopa/Levodopa (Carbidopa-Levodopa 25-100mg Tablet) 0.5 each PO TID [facility] Last Admin: 05/10/24 15:49 Dose: 0.5 each Clopidogrel Bisulfate (Clopidogrel 75 Mg Tablet) 75 mg PO DAILY [facility] Last Admin: 05/10/24 09:33 Dose: 75 mg Collagenase (Collagenase Oint 30 Gm) 1 applic TOPICAL DAILY [facility] Last Admin: 05/10/24 13:46 Dose: 1 applic Diltiazem HCl (Diltiazem 30 Mg Tablet) 30 mg PO QID [facility] Last Admin: 05/10/24 09:31 Dose: 30 mg Docusate Sodium (Docusate Sodium 100 Mg Capsule) 100 mg PO BID [facility] Last Admin: 05/10/24 09:31 Dose: 100 mg Ferrous Sulfate (Ferrous Sulfate Ec 325 Mg Tablet) 325 mg PO BIDWM [facility] Last Admin: 05/10/24 09:30 Dose: 325 mg Finasteride (Finasteride 5 Mg Tablet) 5 mg PO BEDTIME [facility] Last Admin: 05/09/24 21:07 Dose: 5 mg Furosemide (Furosemide 10 Mg/Ml Sdv 10ml) 60 mg IVP Q12H [facility] Last Admin: 05/10/24 13:00 Dose: 60 mg Guaifenesin (Guaifenesin 600 Mg Tablet) 600 mg PO BID [facility] Last Admin: 05/10/24 09:34 Dose: 600 mg Meropenem 500 mg/ Sodium (Chloride) 50 mls @ 100 mls/hr IV Q12H [facility]; Protocol Last Infusion: 05/10/24 10:27 Dose: Infused Norepinephrine Bitartrate (Levophed) 4 mg in 250 mls @ 0 mls/hr IV .Q0M PRN; Protocol PRN Reason: MAP less than 65 Vancomycin HCl 1,000 mg/ (Sodium Chloride) 250 mls @ 250 mls/hr IV Q48H [facility] Last Infusion: 05/09/24 19:14 Dose: Infused Aztreonam 2,000 mg/ Sodium (Chloride) 100 mls @ 200 mls/hr IV Q12H [facility]; Protocol Last Infusion: 05/10/24 13:40 Dose: Infused Lactobacillus Acidophilus (Lactobacillus 1 Tablet) 2 tab PO BID [facility] Last Admin: 05/10/24 09:31 Dose: 2 tab Methylprednisolone Sodium Succinate (Methylprednisolone Sod Succ 125 Mg/2 Ml Inj) 60 mg IVP Q12H [facility] Last Admin: 05/10/24 15:48 Dose: 60 mg Morphine Sulfate (Morphine 4 Mg/Ml Sdv 1 Ml) 2 mg IVP Q4H PRN PRN Reason: SHORTNESS OF BREATH Last Admin: 05/10/24 05:21 Dose: 2 mg Ondansetron HCl (Ondansetron 2 Mg/Ml Sdv 2 Ml) 4 mg IVP Q6H PRN PRN Reason: NAUSEA AND VOMITING Pantoprazole Sodium (Pantoprazole Dr 40 Mg Tablet) 40 mg PO DAILY [facility] Last Admin: 05/10/24 09:33 Dose: 40 mg Ranolazine (Ranolazine (12hr) 500 Mg Tablet) 500 mg PO BID [facility] Last Admin: 05/10/24 09:31 Dose: 500 mg Ropinirole HCl (Ropinirole 2 Mg Tablet) 1 mg PO QPM [facility] Last Admin: 05/09/24 16:32 Dose: 1 mg Senna (Sennosides 8.6 Mg Tablet) 17.2 mg PO BEDTIME [facility] Last Admin: 05/09/24 21:06 Dose: 17.2 mg Tamsulosin HCl (Tamsulosin 0.4 Mg Capsule) 0.4 mg PO DAILY [facility] Last Admin: 05/10/24 09:33 Dose: 0.4 mg Vitals/I&O/Wt Last Vital Signs Temp 97.9 F 05/10/24 12:00 Pulse 77 05/10/24 16:00 Resp 20 H 05/10/24 16:00 BP 109/58 05/10/24 16:00 Pulse Ox 95 05/10/24 16:00 O2 Del Method Nasal Cannula 05/10/24 13:39 O2 Flow Rate 4.5 05/10/24 13:39 FiO2 30 05/10/24 02:45 05/10/24 05/10/24 05/10/24 06:59 14:59 22:59 Intake Total 460 / 1219.65 572 / 572 Balance 460 / 669.65 572 / 572 Weight last 48 hrs Weight 208 lb 5.389 oz Weight 200 lb Physical Exam 2 Narrative: GENERAL: The patient is alert and slightly tachypneic. Complaining of some chest discomfort but is improving since he had a blood transfusion HEENT: No significant pallor, icterus or lymphadenopathy.Oral cavity: There are no mucous membrane lesions. NECK: Trachea appears to be central. No masses noted. No JVD or thyromegaly appreciated. RESPIRATORY: Scattered diffuse expiratory wheezing and coarse crackles bilaterally BREASTS: Deferred. HEART: The heart sounds are normal. No S3 or S4. Short systolic murmur in the left renal border. No pericardial rub ABDOMEN: No vessel pulsations or distention. No tenderness. No organomegaly appreciated. Bowel sounds are normally heard. : Deferred. RECTAL: Deferred. LYMPHATIC: No lymphadenopathy noted in the neck. EXTREMITIES: 2+ edema both lower extremities. Some weeping ulcers on the anterior aspect of the right leg MUSCULOSKELETAL: No acute joint deformities or swelling SKIN: There are no significant rashes or ecchymosis. Features of chronic venous stasis and stasis dermatitis especially on the left leg NEUROPSYCHIATRIC: The patient is alert and oriented x3. Slightly tachypneic. Urinary Catheter Management: Squires: Cath Placed During This Visit: yes Reason for Continuing Indwelling Catheter: Accurate Measurement of Urinary Output in Critically Ill Patients Urinary Catheter Date of Insertion: 05/09/24 Urinary Catheter Time of Insertion: 14:29 Data 05/10/24 04:46 05/10/24 04:46 Other Labs: Laboratory Last Values WBC 11.06 10^3/uL (3.29-11.43) 05/10/24 04:46 RBC 2.54 10^6/uL (3.85-5.65) L 05/10/24 04:46 Hgb 8.00 g/dL (11.27-16.99) L 05/10/24 04:46 Hct 25.7 % (37-53) L 05/10/24 04:46 MCV 101.2 fl (82-101) H 05/10/24 04:46 MCH 31.5 pg (27-33) 05/10/24 04:46 MCHC 31.1 g/dL (30-55) 05/10/24 04:46 RDW 22.1 % (12.1-15.1) H 05/10/24 04:46 Plt Count 239 10^3/cmm (157-399) 05/10/24 04:46 MPV 9.6 fL (7.4-10.4) 05/10/24 04:46 Neut % (Auto) 96.0 % 05/10/24 04:46 Lymph % (Auto) 1.9 % 05/10/24 04:46 [place] % (Auto) 0.8 % 05/10/24 04:46 Eos % (Auto) 0.0 % 05/10/24 04:46 Baso % (Auto) 0.1 % 05/10/24 04:46 Neut # (Auto) 10.62 10^3/uL (1.8-7.7) H 05/10/24 04:46 Lymph # (Auto) 0.2 10^3/uL (0.8-4.8) L 05/10/24 04:46 [place] # (Auto) 0.1 10^3/uL (0.2-0.9) L 05/10/24 04:46 Eos # (Auto) 0.0 10^3/uL (0.0-0.8) 05/10/24 04:46 Baso # (Auto) 0.0 10^3/uL (0.0-0.1) 05/10/24 04:46 Nucleated RBC % (auto) 0 % 05/10/24 04:46 Nucleated RBCs # 0.0 /100WBC 05/10/24 04:46 PT 22.80 SECONDS (12.1-14.9) H 05/09/24 15:45 INR 1.93 (0.8-1.2) H 05/09/24 15:45 APTT 47.3 SECONDS (23.9-36.7) H 05/09/24 15:45 Specimen Type Arterial 05/10/24 04:13 Sample Site Radial, right 05/10/24 04:13 ABG pH 7.45 (7.35-7.45) 05/10/24 04:13 ABG pCO2 33.6 mmHg (35-45) L 05/10/24 04:13 ABG pO2 64.4 mmHg (80.0-100.0) L 05/10/24 04:13 ABG PO2/FiO2 Ratio 0 05/10/24 04:13 ABG HCO3 23.2 mmol/L (22-26) 05/10/24 04:13 ABG O2 Saturation 99.5 05/09/24 09:50 ABG Base Excess -0.6 mmol/L (-2.0-2.0) 05/10/24 04:13 [place]pin Test Pos 05/10/24 04:13 A-a O2 Gradient 13.1 mmHg (5-10) H 05/09/24 09:50 Hematocrit 25.3 % (42-52) L 05/10/24 04:13 Hgb O2 Saturation 95.5 % (95-100) 05/09/24 09:50 Carboxyhemoglobin 3.7 %THgb (0.4-20.1) 05/09/24 09:50 Methemoglobin 0.4 % (0.4-1.5) 05/09/24 09:50 Total Hemoglobin 7.2 g/dL (14-18) L 05/09/24 09:50 Sodium 132.0 mmol/L (131-143) 05/09/24 09:50 Potassium 4.7 mmol/L (3.5-5.0) 05/09/24 09:50 Glucose 97.0 mg/dL (70-115) 05/09/24 09:50 Ionized Calcium 1.2 mmol/L (1.1-1.4) 05/09/24 09:50 O2 Delivery Device Bipap 05/10/24 04:13 O2 Liters/Min 4.0 % 05/09/24 09:50 FiO2 30.0 % 05/10/24 04:13 Tidal Volume 0.40 05/10/24 04:13 Reimbursement Auditor ID [place] 05/10/24 04:13 Sodium 134 mmol/L (136-145) L 05/10/24 04:46 Potassium 5.3 mmol/L (3.5-5.1) H 05/10/24 04:46 Chloride 97 mmol/L (98-107) L 05/10/24 04:46 Carbon Dioxide 22 mmol/L (22-29) 05/10/24 04:46 Anion Gap 20.3 (5-19) H 05/10/24 04:46 BUN 106 mg/dL (8-23) H* 05/10/24 04:46 Creatinine 3.5 mg/dL (0.7-1.2) H 05/10/24 04:46 GFR Calculation Not Reportable 05/10/24 04:46 Glucose 126 mg/dL (65-115) H 05/10/24 04:46 Calculated Osmolality 313 mOsm/kg (285-295) H 05/10/24 04:46 Lactic Acid 1.6 mmol/L (0.5-2.2) 05/09/24 09:58 Uric Acid 11.9 mg/dL (3.4-7.0) H 05/09/24 09:58 Calcium 8.5 mg/dL (8.5-10.5) 05/10/24 04:46 Phosphorus 6.8 mg/dL (2.5-4.5) H 05/10/24 04:46 Magnesium 3.0 mg/dL (1.7-2.3) H 05/10/24 04:46 Iron 55 ug/dL (59-158) L 05/09/24 09:58 TIBC 315 mcg/dl 05/09/24 09:58 % Saturation 17.4 % (20-50) L 05/09/24 09:58 Unsat Iron Binding 260 ug/dL (112-347) 05/09/24 09:58 Total Bilirubin 0.6 mg/dL (0.15-1.2) 05/09/24 09:58 AST 18 U/L (0-40) 05/09/24 09:58 ALT < 5 U/L (0-41) 05/09/24 09:58 Alkaline Phosphatase 98 U/L (40-130) 05/09/24 09:58 Troponin T Baseline 74 ng/L (0-15) H 05/09/24 09:58 Troponin T 120 Minute 72.15 ng/L (0-15) H 05/09/24 13:05 Delta Troponin T -1.85 ABS# (0-10) L 05/09/24 13:05 Troponin T Hi Sens 6Hr 61.14 ng/L (0-15) H 05/09/24 15:45 Troponin T Hi Sens 6Hr Delta -12.86 ng/L (0-12) L 05/09/24 15:45 C-Reactive Protein 26.9 mg/L (0.0-4.9) H 05/09/24 09:58 NT-Pro-B Natriuret Pep 2199 pg/mL (0-450) H 05/09/24 09:58 Total Protein 5.3 g/dL (6.6-8.7) L 05/09/24 09:58 Albumin 3.2 g/dL (3.5-5.2) L 05/09/24 09:58 Globulin 2.1 g/dL (1.3-4.6) 05/09/24 09:58 Urine Color Yellow (Yellow) 05/09/24 14:27 Urine Appearance Clear (CLEAR) 05/09/24 14:27 Urine pH 5 (5-7) 05/09/24 14:27 Ur Specific [place] 1.020 (1.005-1.030) 05/09/24 14:27 Urine Protein Trace (Negative) 05/09/24 14:27 Urine Glucose (UA) Norm (Normal) 05/09/24 14:27 Urine Ketones 1+ (Negative) H 05/09/24 14:27 Urine Blood Neg (Negative) 05/09/24 14:27 Urine Nitrate Negative (Negative) 05/09/24 14:27 Urine Bilirubin Neg (Negative) 05/09/24 14:27 Urine Urobilinogen Neg mg/dL (Negative) 05/09/24 14:27 Ur Leukocyte Esterase Negative (Negative) 05/09/24 14:27 Urine RBC Rare /hpf (0-2) 05/09/24 14:27 Urine WBC 0-4 /hpf (0-5) H 05/09/24 14:27 Ur Squamous Epith Cells 0-4 /hpf (0-5) H 05/09/24 14:27 Ur Transition Epith Cell 0-4 /hpf 05/09/24 14:27 Amorphous Sediment Not Reportable 05/09/24 14:27 Urine Bacteria 1+ /hpf (NONE) H 05/09/24 14:27 Hyaline Casts 15-25 /lpf H 05/09/24 14:27 Urine Mucus Trace /hpf 05/09/24 14:27 Adenovirus (PCR) Not detected (NOT DETECT) 05/09/24 10:00 C. pneumoniae DNA (PCR) Not detected (NOT DETECT) 05/09/24 10:00 Coronavirus 229E (PCR) Not detected (NOT DETECT) 05/09/24 10:00 Human Metapneumovir PCR Not detected (NOT DETECT) 05/09/24 10:00 Influenza A (H1) PCR Not detected (NOT DETECT) 05/09/24 10:00 Influ A (H1/09) PCR Not detected (NOT DETECT) 05/09/24 10:00 Influenza A (H3) PCR Not detected (NOT DETECT) 05/09/24 10:00 Influenza Type A (PCR) Not detected (NOT DETECT) 05/09/24 10:00 Influenza Type B (PCR) Not detected (NOT DETECT) 05/09/24 10:00 M. pneumoniae (PCR) Not detected (NOT DETECT) 05/09/24 10:00 Parainfluenza 1 (PCR) Not detected (NOT DETECT) 05/09/24 10:00 Parainfluenza 2 (PCR) Not detected (NOT DETECT) 05/09/24 10:00 Parainfluenza 3 (PCR) Not detected (NOT DETECT) 05/09/24 10:00 Parainfluenza 4 (PCR) Not detected (NOT DETECT) 05/09/24 10:00 RSV Type A (PCR) Not detected (NOT DETECT) 05/09/24 10:00 RSV Type B (PCR) Not detected (NOT DETECT) 05/09/24 10:00 Entero/Rhino (PCR) Not detected (NOT DETECT) 05/09/24 10:00 SARS-CoV-2 (PCR) Not detected (NOT DETECT) 05/09/24 10:00 Blood Type O Positive 05/09/24 10:17 Rho(D) Type Rh positive 05/09/24 10:17 Antibody Screen Negative 05/09/24 10:17 Crossmatch See Detail 05/09/24 10:17 Micro: Microbiology 05/09/24 15:45 Blood Culture - Preliminary Blood NEGATIVE TO DATE 05/09/24 13:05 Blood Culture - Preliminary Blood NEGATIVE TO DATE A&P Assessment and plan (1) 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 At this point, we may continue on the current medications. If he continues to remain stable, he may not require any further investigations at this point. Qualifiers: [place] vs. 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 May continue on the current treatment measures. Qualifiers: Hypotension type: other hypotension type Qualified Code(s): I95.89 - Other hypotension (3) Atrial fibrillation: Patient is in atrial fibrillation with controlled ventricular response rate. May continue on the current treatment. Qualifiers: Atrial fibrillation type: persistent (not longstanding) Qualified Code(s): I48.19 - Other persistent atrial fibrillation (4) Acute on chronic diastolic heart failure: Careful IV diuresis. The worsening BUN/creatinine ratio is a concern. May consider nephrology input. (5) Hyperlipidemia: May continue on the current medication Qualifiers: Hyperlipidemia type: unspecified Qualified Code(s): E78.5 - Hyperlipidemia, unspecified (6) Peripheral arterial disease: Clinically seems to be stable. Will continue on the current management. (7) Acute kidney injury superimposed on chronic kidney disease: Patient may have a low output state. The repeat echocardiogram would be helpful to evaluate LV function. (8) Anemia: The hemoglobin seems to be steady. The etiology is not clear. He may need further workup. Qualifiers: Anemia type: unspecified type Qualified Code(s): D64.9 - Anemia, unspecified Plan Based on the patient clinical progress and the results of the above, further recommendations will be made. May optimize above modalities of treatment. Consider anemia workup If he continues to remain stable, may be transferred to a telemetry unit. Attestations 2 Medical Necessity Statement*: Patient requires continued hospital stay for close monitoring and further management Coding Level of Care Code Acute Code for [facility] Fwd Diagnoses Atherosclerosis of habematolel coronary artery of habematolel heart with unstable angina pectoris I25.110 [place] vs. transplanted heart: habematolel heart Other specified hypotension I95.89 Hypotension type: other hypotension type Persistent atrial fibrillation I48.19 Atrial fibrillation type: persistent (not longstanding) Acute on chronic diastolic heart failure I50.33 Hyperlipidemia, unspecified hyperlipidemia type E78.5 Hyperlipidemia type: unspecified Peripheral arterial disease I73.9 Acute kidney injury superimposed on chronic kidney disease N17.9; N18.9 Anemia D64.9 Anemia type: unspecified type
[2024-05-10] MEDS: ropinirole 2 mg Tablet 1 MG PO (17:49)
[2024-05-10] MEDS: amiodarone 200 mg Tablet 400 MG PO (17:51)
[2024-05-10] MEDS: atorvastatin 40 mg Tablet PO (20:11)
[2024-05-10] MEDS: finasteride 5 mg Tablet PO (20:12)
[2024-05-10] MEDS: sennosides 8.6 mg Tablet 17.2 MG PO (20:12)
[2024-05-11] VITALS (58 sets, daily range): BP systolic 85–135; BP diastolic 24–81; PULSE 71–102; RESP 8–24; TEMP 36.1–36.6; O2SAT 81–99
[2024-05-11] MEDS: AZTREONAM IV ×2 (01:06→12:54)
[2024-05-11] MEDS: FUROsemide 10 mg/mL SDV 10mL 60 MG IVP (01:06)
[2024-05-11] MEDS: SODIUM CHLORIDE 0.9% IV ×2 (01:06→12:54)
[2024-05-11] MEDS: ipratropium-albuterol 3 mL Neb INHALATION ×4 (03:05→19:48)
[2024-05-11] MEDS: methylPREDNISolone sod succ 125 mg/2 mL INJ 60 MG IVP (03:22)
[2024-05-11 04:09] LABS: Basophils % 0.2 %; Hematocrit 25.3 % (37-53); Lymphocytes # 0.3 10^3/uL (0.8-4.8); Lymphocytes % 1.5 %; Mean Corpuscular HGB Conc 31.6 g/dL (30-55); Mean Corpuscular Hemoglobin 32.3 pg (27-33); Mean Platelet Volume 9.7 fL (7.4-10.4); Monocytes # 0.4 10^3/uL (0.2-0.9); Monocytes % 2.3 %; Neutrophils # 17.87 10^3/uL (1.8-7.7); Nucleated Red Blood Cells % 0.1 %; Platelet Count 259 10^3/cmm (157-399); Red Blood Count 2.48 10^6/uL (3.85-5.65); Red Cell Distribution Width 22.2 % (12.1-15.1); White Blood Count 18.81 10^3/uL (3.29-11.43)
[2024-05-11 04:35] LABS: Anion Gap 17.7 (5-19); Calcium 8.4 mg/dL (8.5-10.5); Carbon Dioxide 23 mmol/L (22-29); Chloride 99 mmol/L (98-107); Glucose 126 mg/dL (65-115); Osmolality Calculated 315 mOsm/kg (285-295); Potassium 5.7 mmol/L (3.5-5.1); Sodium 134 mmol/L (136-145)
[2024-05-11 04:53] LABS: Blood Urea Nitrogen 112 mg/dL (8-23); Creatinine Clr Calc Pharmacy 16.1208
[2024-05-11] MEDS: morphine 4 mg/mL SDV 1 mL 2 MG IVP ×2 (05:35→15:36)
[2024-05-11] MEDS: pantoprazole DR 40 mg Tablet PO (08:25)
[2024-05-11] MEDS: clopidogrel 75 mg Tablet PO (08:25)
[2024-05-11] MEDS: tamsulosin 0.4 mg Capsule PO (08:25)
[2024-05-11] MEDS: docusate sodium 100 mg Capsule PO ×2 (08:25→17:52)
[2024-05-11] MEDS: lactobacillus 1 Tablet 2 TAB PO ×2 (08:25→17:51)
[2024-05-11] MEDS: ranolazine (12HR) 500 mg Tablet PO ×2 (08:25→17:51)
[2024-05-11] MEDS: ferrous sulfate EC 325 mg Tablet PO ×2 (08:25→17:51)
[2024-05-11] MEDS: guaiFENesin 600 mg Tablet PO ×2 (08:25→17:51)
[2024-05-11] MEDS: amiodarone 200 mg Tablet 400 MG PO ×2 (08:26→17:51)
[2024-05-11] MEDS: bacitracin ointment Pkt 1 EACH TOPICAL ×3 (08:26→19:59)
[2024-05-11] MEDS: meropenem 500 MG in sodium chloride 0.9% (plus) 50 ML 100 MG IV ×2 (08:26→19:38)
[2024-05-11] MEDS: allopurinol 100 mg Tablet PO (08:26)
[2024-05-11] MEDS: carbidopa-levodopa 25-100mg Tablet 0.5 EACH PO ×3 (08:26→20:00)
[2024-05-11] MEDS: clotrimazole-betamethasone cream 15gm 1 APPLIC TOPICAL ×3 (08:27→20:00)
[2024-05-11] MEDS: collagenase oint 30 gm 1 APPLIC TOPICAL (08:27)
--- NOTE | 2024-05-11 09:10 | PM.PN ---
Subjective Subjective: The patient is feeling better. He still has some shortness of breath with activities. The vital signs are stable. He has a nonhealing ulcer in the right leg. I did open examination was performed in the right lower extremity. WANDY could not be done. The femoral, popliteal and infrapopliteal vessels are found to be patent. Features are suggesting possible high-grade stenosis at the level of the superficial femoral artery with collateral filling of the popliteal and infrapopliteal vessels. Medications: Medication Review Details: Current Medications Acetaminophen (Acetaminophen 325 Mg Tablet) 650 mg PO Q6H PRN PRN Reason: MILD PAIN Albuterol/Ipratropium (Ipratropium-Albuterol 3 Ml Neb) 3 ml INHALATION Q6H.RESP [facility] Last Admin: 05/11/24 07:34 Dose: 3 ml Albuterol/Ipratropium (Ipratropium-Albuterol 3 Ml Neb) 3 ml INHALATION Q6H PRN PRN Reason: SHORTNESS OF BREATH Last Admin: 05/09/24 15:49 Dose: 3 ml Allopurinol (Allopurinol 100 Mg Tablet) 100 mg PO DAILY [facility] Last Admin: 05/11/24 08:26 Dose: 100 mg Amiodarone HCl (Amiodarone 200 Mg Tablet) 400 mg PO BID [facility] Last Admin: 05/11/24 08:26 Dose: 400 mg Apixaban (Apixaban 5 Mg Tablet) 2.5 mg PO BID@0900,2100 [facility] Last Admin: 05/10/24 09:45 Dose: Not Given Atorvastatin Calcium (Atorvastatin 40 Mg Tablet) 40 mg PO BEDTIME [facility] Last Admin: 05/10/24 20:11 Dose: 40 mg Bacitracin (Bacitracin Ointment Pkt) 1 each TOPICAL TID [facility]; Protocol Last Admin: 05/11/24 08:26 Dose: 1 each Betamethasone/Clotrimazole (Clotrimazole-Betamethasone Cream 15gm) 1 applic TOPICAL TID [facility] Last Admin: 05/11/24 08:27 Dose: 1 applic Carbidopa/Levodopa (Carbidopa-Levodopa 25-100mg Tablet) 0.5 each PO TID [facility] Last Admin: 05/11/24 08:26 Dose: 0.5 each Clopidogrel Bisulfate (Clopidogrel 75 Mg Tablet) 75 mg PO DAILY [facility] Last Admin: 05/11/24 08:25 Dose: 75 mg Collagenase (Collagenase Oint 30 Gm) 1 applic TOPICAL DAILY [facility] Last Admin: 05/11/24 08:27 Dose: 1 applic Diltiazem HCl (Diltiazem 30 Mg Tablet) 30 mg PO QID [facility] Last Admin: 05/10/24 09:31 Dose: 30 mg Docusate Sodium (Docusate Sodium 100 Mg Capsule) 100 mg PO BID [facility] Last Admin: 05/11/24 08:25 Dose: 100 mg Ferrous Sulfate (Ferrous Sulfate Ec 325 Mg Tablet) 325 mg PO BIDWM [facility] Last Admin: 05/11/24 08:25 Dose: 325 mg Finasteride (Finasteride 5 Mg Tablet) 5 mg PO BEDTIME [facility] Last Admin: 05/10/24 20:12 Dose: 5 mg Furosemide (Furosemide 10 Mg/Ml Sdv 10ml) 60 mg IVP Q12H [facility] Last Admin: 05/11/24 01:06 Dose: 60 mg Guaifenesin (Guaifenesin 600 Mg Tablet) 600 mg PO BID [facility] Last Admin: 05/11/24 08:25 Dose: 600 mg Meropenem 500 mg/ Sodium (Chloride) 50 mls @ 100 mls/hr IV Q12H [facility]; Protocol Last Admin: 05/11/24 08:26 Dose: 100 mls/hr Norepinephrine Bitartrate (Levophed) 4 mg in 250 mls @ 0 mls/hr IV .Q0M PRN; Protocol PRN Reason: MAP less than 65 Vancomycin HCl 1,000 mg/ (Sodium Chloride) 250 mls @ 250 mls/hr IV Q48H [facility] Last Infusion: 05/09/24 19:14 Dose: Infused Aztreonam 1,000 mg/ Sodium (Chloride) 100 mls @ 200 mls/hr IV Q12H [facility]; Protocol Last Titration: 05/11/24 01:56 Dose: 0 mls/hr Lactobacillus Acidophilus (Lactobacillus 1 Tablet) 2 tab PO BID [facility] Last Admin: 05/11/24 08:25 Dose: 2 tab Methylprednisolone Sodium Succinate (Methylprednisolone Sod Succ 125 Mg/2 Ml Inj) 60 mg IVP Q12H [facility] Last Admin: 05/11/24 03:22 Dose: 60 mg Morphine Sulfate (Morphine 4 Mg/Ml Sdv 1 Ml) 2 mg IVP Q4H PRN PRN Reason: SHORTNESS OF BREATH Last Admin: 05/11/24 05:35 Dose: 2 mg Ondansetron HCl (Ondansetron 2 Mg/Ml Sdv 2 Ml) 4 mg IVP Q6H PRN PRN Reason: NAUSEA AND VOMITING Pantoprazole Sodium (Pantoprazole Dr 40 Mg Tablet) 40 mg PO DAILY [facility] Last Admin: 05/11/24 08:25 Dose: 40 mg Ranolazine (Ranolazine (12hr) 500 Mg Tablet) 500 mg PO BID [facility] Last Admin: 05/11/24 08:25 Dose: 500 mg Ropinirole HCl (Ropinirole 2 Mg Tablet) 1 mg PO QPM [facility] Last Admin: 05/10/24 17:49 Dose: 1 mg Senna (Sennosides 8.6 Mg Tablet) 17.2 mg PO BEDTIME [facility] Last Admin: 05/10/24 20:12 Dose: 17.2 mg Tamsulosin HCl (Tamsulosin 0.4 Mg Capsule) 0.4 mg PO DAILY [facility] Last Admin: 05/11/24 08:25 Dose: 0.4 mg Vitals/I&O/Wt Last Vital Signs Temp 97.0 F L 05/11/24 07:27 Pulse 86 05/11/24 07:41 Resp 18 05/11/24 07:41 BP 125/81 05/11/24 07:00 Pulse Ox 92 05/11/24 07:41 O2 Del Method BiPAP 05/11/24 07:41 O2 Flow Rate 4 05/11/24 06:30 FiO2 30 05/11/24 07:41 05/10/24 05/11/24 05/11/24 22:59 06:59 14:59 Intake Total 100 / 672 100 / 772 Output Total 550 / 550 200 / 750 Balance -450 / 122 -100 / 22 Weight last 48 hrs Weight 206 lb 2.115 oz Weight 208 lb 5.389 oz Weight 200 lb Physical Exam Narrative: GENERAL: The patient is alert and slightly tachypneic. Complaining of some chest discomfort but is improving since he had a blood transfusion HEENT: No significant pallor, icterus or lymphadenopathy.Oral cavity: There are no mucous membrane lesions. NECK: Trachea appears to be central. No masses noted. No JVD or thyromegaly appreciated. RESPIRATORY: Scattered diffuse expiratory wheezing and coarse crackles bilaterally BREASTS: Deferred. HEART: The heart sounds are normal. No S3 or S4. Short systolic murmur in the left renal border. No pericardial rub ABDOMEN: No vessel pulsations or distention. No tenderness. No organomegaly appreciated. Bowel sounds are normally heard. : Deferred. RECTAL: Deferred. LYMPHATIC: No lymphadenopathy noted in the neck. EXTREMITIES: 2+ edema both lower extremities. Some weeping ulcers on the anterior aspect of the right leg MUSCULOSKELETAL: No acute joint deformities or swelling SKIN: There are no significant rashes or ecchymosis. Features of chronic venous stasis and stasis dermatitis especially on the left leg. Small superficial ulcers in the right leg. NEUROPSYCHIATRIC: The patient is alert and oriented x3. Slightly tachypneic. Urinary Catheter Management: Squires: Cath Placed During This Visit: yes Reason for Continuing Indwelling Catheter: Accurate Measurement of Urinary Output in Critically Ill Patients Urinary Catheter Date of Insertion: 05/09/24 Urinary Catheter Time of Insertion: 14:29 Data 05/11/24 03:50 05/11/24 03:50 Other Labs: Laboratory Last Values WBC 18.81 10^3/uL (3.29-11.43) H 05/11/24 03:50 RBC 2.48 10^6/uL (3.85-5.65) L 05/11/24 03:50 Hgb 8.00 g/dL (11.27-16.99) L 05/11/24 03:50 Hct 25.3 % (37-53) L 05/11/24 03:50 MCV 102.0 fl (82-101) H 05/11/24 03:50 MCH 32.3 pg (27-33) 05/11/24 03:50 MCHC 31.6 g/dL (30-55) 05/11/24 03:50 RDW 22.2 % (12.1-15.1) H 05/11/24 03:50 Plt Count 259 10^3/cmm (157-399) 05/11/24 03:50 MPV 9.7 fL (7.4-10.4) 05/11/24 03:50 Neut % (Auto) 95.0 % 05/11/24 03:50 Lymph % (Auto) 1.5 % 05/11/24 03:50 [place] % (Auto) 2.3 % 05/11/24 03:50 Eos % (Auto) 0.0 % 05/11/24 03:50 Baso % (Auto) 0.2 % 05/11/24 03:50 Neut # (Auto) 17.87 10^3/uL (1.8-7.7) H 05/11/24 03:50 Lymph # (Auto) 0.3 10^3/uL (0.8-4.8) L 05/11/24 03:50 [place] # (Auto) 0.4 10^3/uL (0.2-0.9) 05/11/24 03:50 Eos # (Auto) 0.0 10^3/uL (0.0-0.8) 05/11/24 03:50 Baso # (Auto) 0.0 10^3/uL (0.0-0.1) 05/11/24 03:50 Nucleated RBC % (auto) 0.1 % 05/11/24 03:50 Nucleated RBCs # 0.0 /100WBC 05/11/24 03:50 PT 22.80 SECONDS (12.1-14.9) H 05/09/24 15:45 INR 1.93 (0.8-1.2) H 05/09/24 15:45 APTT 47.3 SECONDS (23.9-36.7) H 05/09/24 15:45 Specimen Type Arterial 05/10/24 04:13 Sample Site Radial, right 05/10/24 04:13 ABG pH 7.45 (7.35-7.45) 05/10/24 04:13 ABG pCO2 33.6 mmHg (35-45) L 05/10/24 04:13 ABG pO2 64.4 mmHg (80.0-100.0) L 05/10/24 04:13 ABG PO2/FiO2 Ratio 0 05/10/24 04:13 ABG HCO3 23.2 mmol/L (22-26) 05/10/24 04:13 ABG O2 Saturation 99.5 05/09/24 09:50 ABG Base Excess -0.6 mmol/L (-2.0-2.0) 05/10/24 04:13 Crispin Test Pos 05/10/24 04:13 A-a O2 Gradient 13.1 mmHg (5-10) H 05/09/24 09:50 Hematocrit 25.3 % (42-52) L 05/10/24 04:13 Hgb O2 Saturation 95.5 % (95-100) 05/09/24 09:50 Carboxyhemoglobin 3.7 %THgb (0.4-20.1) 05/09/24 09:50 Methemoglobin 0.4 % (0.4-1.5) 05/09/24 09:50 Total Hemoglobin 7.2 g/dL (14-18) L 05/09/24 09:50 Sodium 132.0 mmol/L (131-143) 05/09/24 09:50 Potassium 4.7 mmol/L (3.5-5.0) 05/09/24 09:50 Glucose 97.0 mg/dL (70-115) 05/09/24 09:50 Ionized Calcium 1.2 mmol/L (1.1-1.4) 05/09/24 09:50 O2 Delivery Device Bipap 05/10/24 04:13 O2 Liters/Min 4.0 % 05/09/24 09:50 FiO2 30.0 % 05/10/24 04:13 Tidal Volume 0.40 05/10/24 04:13 Feather Drying Machine Operator ID [place] 05/10/24 04:13 Sodium 134 mmol/L (136-145) L 05/11/24 03:50 Potassium 5.7 mmol/L (3.5-5.1) H 05/11/24 03:50 Chloride 99 mmol/L (98-107) 05/11/24 03:50 Carbon Dioxide 23 mmol/L (22-29) 05/11/24 03:50 Anion Gap 17.7 (5-19) 05/11/24 03:50 BUN 112 mg/dL (8-23) H* 05/11/24 03:50 Creatinine 3.6 mg/dL (0.7-1.2) H 05/11/24 03:50 GFR Calculation Not Reportable 05/11/24 03:50 Glucose 126 mg/dL (65-115) H 05/11/24 03:50 Calculated Osmolality 315 mOsm/kg (285-295) H 05/11/24 03:50 Lactic Acid 1.6 mmol/L (0.5-2.2) 05/09/24 09:58 Uric Acid 11.9 mg/dL (3.4-7.0) H 05/09/24 09:58 Calcium 8.4 mg/dL (8.5-10.5) L 05/11/24 03:50 Phosphorus 6.8 mg/dL (2.5-4.5) H 05/10/24 04:46 Magnesium 3.0 mg/dL (1.7-2.3) H 05/10/24 04:46 Iron 55 ug/dL (59-158) L 05/09/24 09:58 TIBC 315 mcg/dl 05/09/24 09:58 % Saturation 17.4 % (20-50) L 05/09/24 09:58 Unsat Iron Binding 260 ug/dL (112-347) 05/09/24 09:58 Total Bilirubin 0.6 mg/dL (0.15-1.2) 05/09/24 09:58 AST 18 U/L (0-40) 05/09/24 09:58 ALT < 5 U/L (0-41) 05/09/24 09:58 Alkaline Phosphatase 98 U/L (40-130) 05/09/24 09:58 Troponin T Baseline 74 ng/L (0-15) H 05/09/24 09:58 Troponin T 120 Minute 72.15 ng/L (0-15) H 05/09/24 13:05 Delta Troponin T -1.85 ABS# (0-10) L 05/09/24 13:05 Troponin T Hi Sens 6Hr 61.14 ng/L (0-15) H 05/09/24 15:45 Troponin T Hi Sens 6Hr Delta -12.86 ng/L (0-12) L 05/09/24 15:45 C-Reactive Protein 26.9 mg/L (0.0-4.9) H 05/09/24 09:58 NT-Pro-B Natriuret Pep 2199 pg/mL (0-450) H 05/09/24 09:58 Total Protein 5.3 g/dL (6.6-8.7) L 05/09/24 09:58 Albumin 3.2 g/dL (3.5-5.2) L 05/09/24 09:58 Globulin 2.1 g/dL (1.3-4.6) 05/09/24 09:58 Urine Color Yellow (Yellow) 05/09/24 14:27 Urine Appearance Clear (CLEAR) 05/09/24 14:27 Urine pH 5 (5-7) 05/09/24 14:27 Ur Specific [place] 1.020 (1.005-1.030) 05/09/24 14:27 Urine Protein Trace (Negative) 05/09/24 14:27 Urine Glucose (UA) Norm (Normal) 05/09/24 14:27 Urine Ketones 1+ (Negative) H 05/09/24 14:27 Urine Blood Neg (Negative) 05/09/24 14:27 Urine Nitrate Negative (Negative) 05/09/24 14:27 Urine Bilirubin Neg (Negative) 05/09/24 14:27 Urine Urobilinogen Neg mg/dL (Negative) 05/09/24 14:27 Ur Leukocyte Esterase Negative (Negative) 05/09/24 14:27 Urine RBC Rare /hpf (0-2) 05/09/24 14:27 Urine WBC 0-4 /hpf (0-5) H 05/09/24 14:27 Ur Squamous Epith Cells 0-4 /hpf (0-5) H 05/09/24 14:27 Ur Transition Epith Cell 0-4 /hpf 05/09/24 14:27 Amorphous Sediment Not Reportable 05/09/24 14:27 Urine Bacteria 1+ /hpf (NONE) H 05/09/24 14:27 Hyaline Casts 15-25 /lpf H 05/09/24 14:27 Urine Mucus Trace /hpf 05/09/24 14:27 Adenovirus (PCR) Not detected (NOT DETECT) 05/09/24 10:00 C. pneumoniae DNA (PCR) Not detected (NOT DETECT) 05/09/24 10:00 Coronavirus 229E (PCR) Not detected (NOT DETECT) 05/09/24 10:00 Human Metapneumovir PCR Not detected (NOT DETECT) 05/09/24 10:00 Influenza A (H1) PCR Not detected (NOT DETECT) 05/09/24 10:00 Influ A (H1/09) PCR Not detected (NOT DETECT) 05/09/24 10:00 Influenza A (H3) PCR Not detected (NOT DETECT) 05/09/24 10:00 Influenza Type A (PCR) Not detected (NOT DETECT) 05/09/24 10:00 Influenza Type B (PCR) Not detected (NOT DETECT) 05/09/24 10:00 M. pneumoniae (PCR) Not detected (NOT DETECT) 05/09/24 10:00 Parainfluenza 1 (PCR) Not detected (NOT DETECT) 05/09/24 10:00 Parainfluenza 2 (PCR) Not detected (NOT DETECT) 05/09/24 10:00 Parainfluenza 3 (PCR) Not detected (NOT DETECT) 05/09/24 10:00 Parainfluenza 4 (PCR) Not detected (NOT DETECT) 05/09/24 10:00 RSV Type A (PCR) Not detected (NOT DETECT) 05/09/24 10:00 RSV Type B (PCR) Not detected (NOT DETECT) 05/09/24 10:00 Entero/Rhino (PCR) Not detected (NOT DETECT) 05/09/24 10:00 SARS-CoV-2 (PCR) Not detected (NOT DETECT) 05/09/24 10:00 Blood Type O Positive 05/09/24 10:17 Rho(D) Type Rh positive 05/09/24 10:17 Antibody Screen Negative 05/09/24 10:17 Crossmatch See Detail 05/09/24 10:17 Micro: Microbiology 05/09/24 15:45 Blood Culture - Preliminary Blood NEGATIVE TO DATE 05/09/24 13:05 Blood Culture - Preliminary Blood NEGATIVE TO DATE A&P Assessment and plan (1) Atherosclerotic heart disease of [place] coronary artery with unstable angina pectoris: Patient seems to have significant improvement of the chest pain. At this point, we may continue on the current medications. If he continues to remain stable, he may not require any further investigations at this point. Qualifiers: [place] vs. transplanted heart: [place] heart Qualified Code(s): I25.110 - Atherosclerotic heart disease of [place] coronary artery with unstable angina pectoris (2) Hypotension: The blood pressure seems to be stable, may continue on the current management. Qualifiers: Hypotension type: other hypotension type Qualified Code(s): I95.89 - Other hypotension (3) Atrial fibrillation: Patient is in atrial fibrillation with controlled ventricular response rate. May continue on the current treatment. Qualifiers: Atrial fibrillation type: persistent (not longstanding) Qualified Code(s): I48.19 - Other persistent atrial fibrillation (4) Acute on chronic diastolic heart failure: The BUN/creatinine is going up. Consider nephrology consult (5) Hyperlipidemia: May continue on the current medication Qualifiers: Hyperlipidemia type: unspecified Qualified Code(s): E78.5 - Hyperlipidemia, unspecified (6) Peripheral arterial disease: Ideally this patient requires a peripheral angiogram to better evaluate the peripheral arteries. However because of the worsening kidney function, there is a high chance of him ending up requiring hemodialysis. (7) Anemia: The hemoglobin seems to be steady. The etiology is not clear. He may need further workup. Qualifiers: Anemia type: unspecified type Qualified Code(s): D64.9 - Anemia, unspecified (8) Aortic stenosis: The patient seems to have a severe low gradient aortic valve stenosis. Qualifiers: Cardiac valve disease etiology: nonrheumatic Qualified Code(s): I35.0 - Nonrheumatic aortic (valve) stenosis Plan May try to optimize the medical treatment for peripheral artery disease. Consider angiogram, if the patient and family are willing to subject him for hemodialysis. May continue on the current measures as it is. Possible nephrology consult Attestations Medical Necessity Statement*: Patient requires continued hospital stay for close monitoring and further management Coding Level of Care Code 03517 Diagnoses Atherosclerosis of [place] coronary artery of [place] heart with unstable angina pectoris I25.110 [place] vs. transplanted heart: [place] heart Other specified hypotension I95.89 Hypotension type: other hypotension type Persistent atrial fibrillation I48.19 Atrial fibrillation type: persistent (not longstanding) Acute on chronic diastolic heart failure I50.33 Hyperlipidemia, unspecified hyperlipidemia type E78.5 Hyperlipidemia type: unspecified Peripheral arterial disease I73.9 Anemia D64.9 Anemia type: unspecified type Nonrheumatic aortic valve stenosis I35.0 Cardiac valve disease etiology: nonrheumatic
--- NOTE | 2024-05-11 11:43 | PC.SOCIAL ---
IMM Update pg 2 of IMM updated and reviewed w/ patient and his . Copy provided and copy dated, initialed and placed in chart.
--- NOTE | 2024-05-11 12:03 | P.PN_ITS ---
Subjective 2 Subjective: Patient was told about duplex study, patient is stating that he will likely opt for any intervention that is recommended he is also willing to take the risk of dialysis, at this point he has not shown significant urine output creatinine has not improved, will change his Lasix to Bumex IV regimen I do believe his leukocytosis worsening is secondary to use of steroids which I will discontinue because his wheezing is cardiac in nature Echo showed preserved distal fraction with aortic stenosis He will be considered high risk for further worsening Vitals/I&O/Wt Last Vital Signs Temp 97.9 F 05/11/24 08:00 Pulse 77 05/11/24 11:00 Resp 21 H 05/11/24 11:00 BP 107/47 05/11/24 11:00 Pulse Ox 94 05/11/24 11:00 O2 Del Method BiPAP 05/11/24 07:41 O2 Flow Rate 4 05/11/24 06:30 FiO2 30 05/11/24 07:41 05/10/24 05/11/24 05/11/24 22:59 06:59 14:59 Intake Total 100 / 672 100 / 772 350 / 350 Output Total 550 / 550 200 / 750 Balance -450 / 122 -100 / 22 350 / 350 Weight last 48 hrs Weight 93.5 kg Weight 94.5 kg Physical Exam 2 Narrative: Anasarca present No sign of vascular ischemia no sign of acute limb ischemia at this point Pain in his right leg Awake and alert Sitting in a chair Currently on 4 L nasal cannula Distended abdomen nontender Pleasant cooperative amount of petechiae and bruises all lower extremities Urinary Catheter Management: Squires: Cath Placed During This Visit: yes Reason for Continuing Indwelling Catheter: Accurate Measurement of Urinary Output in Critically Ill Patients Urinary Catheter Date of Insertion: 05/09/24 Urinary Catheter Time of Insertion: 14:29 Data 05/11/24 03:50 05/11/24 03:50 Micro: Microbiology 05/09/24 15:45 Blood Culture - Preliminary Blood NEGATIVE TO DATE 05/09/24 13:05 Blood Culture - Preliminary Blood NEGATIVE TO DATE A&P Assessment and plan (1) Diastolic CHF: Qualifiers: Heart failure chronicity: acute on chronic Qualified Code(s): I50.33 - Acute on chronic diastolic (congestive) heart failure (2) Acute on chronic diastolic heart failure: (3) Aortic stenosis: (4) Peripheral arterial disease: (5) Chronic anticoagulation: (6) Acute kidney injury superimposed on chronic kidney disease: (7) Acute blood loss anemia: (8) Cellulitis: (9) RLS (restless legs syndrome): (10) COPD with acute exacerbation: (11) On home oxygen therapy: (12) SHARON (obstructive sleep apnea): (13) Lower extremity edema: Plan Anemia of chronic disease: Status post 1 unit PRBC Hemoglobin stable Eliquis on hold Peripheral arterial disease continue atorvastatin and Plavix Will touch stress with cardiology Patient is willing to take the risk of dialysis if intervention is indicated Cellulitis continue antibiotic CT leg did not show any sign of abscess Acute on chronic kidney disease Diastolic CHF with aortic stenosis I will change his IV Lasix to Bumex Restless leg continue anxiolytics and carbidopa Established coronary disease cardiology recommended medical management Cardiac diet Acute on chronic hypoxic respiratory distress: Uses BiPAP intermittently At home uses 2 L Full code Monitor in ICU Attestations 2 Medical Necessity Statement*: Continue medical management Diagnoses Acute on chronic diastolic congestive heart failure I50.33 Heart failure chronicity: acute on chronic Acute on chronic diastolic heart failure I50.33 Aortic stenosis I35.0 Peripheral arterial disease I73.9 Chronic anticoagulation Z79.01 Acute kidney injury superimposed on chronic kidney disease N17.9; N18.9 Acute blood loss anemia D62 Cellulitis L03.90 RLS (restless legs syndrome) G25.81 COPD with acute exacerbation J44.1 On home oxygen therapy Z99.81 SHARON (obstructive sleep apnea) G47.33 Lower extremity edema R60.0
[2024-05-11] MEDS: bumetanide 0.25 mg/mL SDV 10 mL 2 MG IVP ×2 (12:54→19:38)
[2024-05-11] MEDS: ropinirole 2 mg Tablet 1 MG PO (17:51)
[2024-05-11] MEDS: vancomycin 1,000 MG in sodium chloride 0.9% 250 ML 250 MG IV (17:52)
[2024-05-11] MEDS: sennosides 8.6 mg Tablet 17.2 MG PO (19:59)
[2024-05-11] MEDS: finasteride 5 mg Tablet PO (20:00)
[2024-05-11] MEDS: atorvastatin 40 mg Tablet PO (20:00)
[2024-05-12] VITALS (53 sets, daily range): BP systolic 88–144; BP diastolic 48–113; PULSE 72–115; RESP 10–23; TEMP 36.2–36.6; O2SAT 82–98
[2024-05-12] MEDS: AZTREONAM IV ×2 (00:40→12:46)
[2024-05-12] MEDS: SODIUM CHLORIDE 0.9% IV ×2 (00:40→12:46)
[2024-05-12] MEDS: ipratropium-albuterol 3 mL Neb INHALATION ×4 (01:32→20:09)
[2024-05-12] MEDS: bumetanide 0.25 mg/mL SDV 10 mL 2 MG IVP (03:41)
[2024-05-12] MEDS: morphine 4 mg/mL SDV 1 mL 2 MG IVP (03:42)
[2024-05-12 05:30] LABS: Basophils % 0.1 %; Hematocrit 26.4 % (37-53); Lymphocytes # 0.1 10^3/uL (0.8-4.8); Lymphocytes % 0.8 %; Mean Corpuscular HGB Conc 29.2 g/dL (30-55); Mean Corpuscular Hemoglobin 31.4 pg (27-33); Mean Corpuscular Volume 107.8 fl (82-101); Mean Platelet Volume 9.5 fL (7.4-10.4); Monocytes # 0.8 10^3/uL (0.2-0.9); Monocytes % 4.9 %; Neutrophils # 14.75 10^3/uL (1.8-7.7); Nucleated Red Blood Cells % 0.1 %; Platelet Count 243 10^3/cmm (157-399); Red Blood Count 2.45 10^6/uL (3.85-5.65); Red Cell Distribution Width 21.6 % (12.1-15.1); White Blood Count 15.86 10^3/uL (3.29-11.43)
[2024-05-12 05:51] LABS: Calcium 8.5 mg/dL (8.5-10.5); Carbon Dioxide 23 mmol/L (22-29); Chloride 99 mmol/L (98-107); Glucose 97 mg/dL (65-115); Sodium 133 mmol/L (136-145)
[2024-05-12 05:56] LABS: Creatinine Clr Calc Pharmacy 16.2026
[2024-05-12 06:10] LABS: Blood Urea Nitrogen 128 mg/dL (8-23); Osmolality Calculated 317 mOsm/kg (285-295)
[2024-05-12] MEDS: docusate sodium 100 mg Capsule PO ×2 (08:08→17:14)
[2024-05-12] MEDS: guaiFENesin 600 mg Tablet PO ×2 (08:08→17:13)
[2024-05-12] MEDS: pantoprazole DR 40 mg Tablet PO (08:08)
[2024-05-12] MEDS: allopurinol 100 mg Tablet PO (08:08)
[2024-05-12] MEDS: tamsulosin 0.4 mg Capsule PO (08:08)
[2024-05-12] MEDS: ranolazine (12HR) 500 mg Tablet PO ×2 (08:08→17:13)
[2024-05-12] MEDS: ferrous sulfate EC 325 mg Tablet PO ×2 (08:08→17:13)
[2024-05-12] MEDS: clopidogrel 75 mg Tablet PO (08:08)
[2024-05-12] MEDS: carbidopa-levodopa 25-100mg Tablet 0.5 EACH PO ×3 (08:08→20:40)
[2024-05-12] MEDS: amiodarone 200 mg Tablet 400 MG PO ×2 (08:08→17:13)
[2024-05-12] MEDS: bacitracin ointment Pkt 1 EACH TOPICAL ×3 (08:09→20:32)
[2024-05-12] MEDS: lactobacillus 1 Tablet 2 TAB PO ×2 (08:09→17:13)
[2024-05-12] MEDS: meropenem 500 MG in sodium chloride 0.9% (plus) 50 ML 100 MG IV (08:10)
[2024-05-12] MEDS: collagenase oint 30 gm 1 APPLIC TOPICAL (08:10)
[2024-05-12] MEDS: clotrimazole-betamethasone cream 15gm 1 APPLIC TOPICAL ×3 (08:10→20:32)
[2024-05-12] MEDS: insulin regular-human 10 UNIT in SYRINGE 1 EACH IVP (10:19)
[2024-05-12] MEDS: sodium polystyrene sulfonate 15 gm/60 mL Btl PO (10:21)
[2024-05-12] MEDS: calcium gluconate 0.1 gm/mL 10% SDV 10mL 1 GM IVP (10:21)
[2024-05-12] MEDS: sodium bicarbonate 8.4% 1 mEq/mL 50mL Syr 100 MEQ IVP (10:21)
[2024-05-12] MEDS: dextrose 10% 125 ML 750 ML IV (10:24)
[2024-05-12 11:12] LABS: Glucose Point of Care 139 mg/dL (70-110)
[2024-05-12] MEDS: FUROsemide 100 MG in sodium chloride 0.9% 40 ML IV (11:25)
[2024-05-12 11:35] LABS: Glucose Point of Care 136 mg/dL (70-110)
[2024-05-12 11:39] LABS: Glucose Point of Care 101 mg/dL (70-110)
[2024-05-12 11:41] LABS: Anion Gap 18.3 (5-19); Calcium 8.7 mg/dL (8.5-10.5); Carbon Dioxide 23 mmol/L (22-29); Chloride 99 mmol/L (98-107); Creatinine Clr Calc Pharmacy 15.3499; Glucose 125 mg/dL (65-115); Potassium 5.3 mmol/L (3.5-5.1); Sodium 135 mmol/L (136-145)
--- NOTE | 2024-05-12 11:47 | XR_ITS ---
WS: [id number] Exam: XR chest 1V portable [id number] Date/Time of Exam: 05/12/2024 11:47 AM Reason For Exam: shortness of breath Comparison 05/09/2024. Left-sided PICC line ends in the lower one third of the SVC unchanged in position. The heart is enlar ged. There is infiltrate in the mid and lower RIGHT lung with minimal improvement. Small RIGHT basal pleural effusion noted. Small LEFT basal pleural effusion. No pneumothorax. Bony structures are intac t. Signs of median sternotomy. XR/XR chest 1V portable [id number] IMPRESSION: 1. Infiltrate in the mid and lower RIGHT lung with minimal improvement. Small b ibasal pleural effusions. 2. Cardiac enlargement unchanged. 3. Left-sided PICC line in satisfactory position.
[2024-05-12 12:13] LABS: Blood Urea Nitrogen 131 mg/dL (8-23); Osmolality Calculated 324 mOsm/kg (285-295)
--- NOTE | 2024-05-12 12:36 | P.PN_ITS ---
Subjective 2 Subjective: Inadequate diuresis Hyperkalemia treatment given BMP showed improvement of potassium Worsening uremia noted no active sign of uremia Patient is awake and alert No plan for intervention for right leg peripheral arterial disease As per the in [place] they had unsuccessful attempt to revascularize the leg At this point we are not considering dialysis Patient is still showing signs of fluid overload I will go ahead start Lasix drip today, in case we do not see any good response by tomorrow there is worsening of uremia I will call nephrology patient will need to get evaluated for dialysis as well patient is in agreement Patient is constipated received lactulose today with along Kayexalate Vitals/I&O/Wt Last Vital Signs Temp 97.5 F L 05/12/24 07:56 Pulse 81 05/12/24 10:30 Resp 23 H 05/12/24 10:30 BP 144/76 05/12/24 10:30 Pulse Ox 93 05/12/24 10:30 O2 Del Method Nasal Cannula 05/12/24 07:57 O2 Flow Rate 5 05/12/24 07:57 FiO2 30 05/12/24 05:30 05/11/24 05/12/24 05/12/24 22:59 06:59 14:59 Intake Total 840 / 1290 120 / 1410 545.1 / 545.1 Output Total 500 / 800 300 / 1100 Balance 340 / 490 -180 / 310 545.1 / 545.1 Weight last 48 hrs Weight 95.5 kg Weight 93.5 kg Physical Exam 2 Narrative: Patient is showing mild signs of skin wrinkling on physical exam No signs of vascular ischemia no sign of acute limb ischemia Pleasant and cooperative Sitting in a chair Currently on 5 L nasal cannula Hemodynamic stable Pleasant and cooperative Family is at the bedside Francinesajennifer present Squires catheter in place Patient has wheezing on auscultation Urinary Catheter Management: Squires: Cath Placed During This Visit: yes Reason for Continuing Indwelling Catheter: Accurate Measurement of Urinary Output in Critically Ill Patients Urinary Catheter Date of Insertion: 05/09/24 Urinary Catheter Time of Insertion: 14:29 Data 05/12/24 04:57 05/12/24 11:10 A&P Assessment and plan (1) Diastolic CHF: Qualifiers: Heart failure chronicity: acute on chronic Qualified Code(s): I50.33 - Acute on chronic diastolic (congestive) heart failure (2) Acute on chronic diastolic heart failure: (3) Aortic stenosis: Qualifiers: Cardiac valve disease etiology: nonrheumatic Qualified Code(s): I35.0 - Nonrheumatic aortic (valve) stenosis (4) Peripheral arterial disease: (5) Chronic anticoagulation: (6) Acute kidney injury superimposed on chronic kidney disease: (7) Acute blood loss anemia: (8) Cellulitis: (9) RLS (restless legs syndrome): (10) COPD with acute exacerbation: (11) On home oxygen therapy: (12) SHARON (obstructive sleep apnea): (13) Lower extremity edema: Plan Anemia of chronic disease: Status post 1 unit PRBC Monitor hemoglobin Anemia of chronic disease no active signs of GI bleed Currently on Plavix Eliquis on hold Peripheral arterial disease continue atorvastatin and Plavix Cardiology recommended conservative management there is no sign of acute limb ischemia As per the family patient has been evaluated at [facility] where intervention for revascularization of right leg was unsuccessful he was recommended medical management Cellulitis continue antibiotic No active worsening signs of cellulitis no sign of progression Topical antibiotics along antibiotics Discontinue aztreonam continue vancomycin I do believe his leukocytosis is related to use of steroids I would only use p.o. prednisone for now Acute on chronic kidney disease Persistent hypervolemia: Start Lasix drip today, monitor blood pressure Hyperkalemia treated today Persistent hyperkalemia with worsening uremia will consult nephro Restless leg continue anxiolytics and carbidopa Established coronary disease cardiology recommended medical management I will use renal nondialysis diet Acute on chronic hypoxic respiratory distress: Uses BiPAP intermittently At home uses 2 L Full code Monitor in ICU Attestations 2 Medical Necessity Statement*: Continue medical management Diagnoses Acute on chronic diastolic congestive heart failure I50.33 Heart failure chronicity: acute on chronic Acute on chronic diastolic heart failure I50.33 Nonrheumatic aortic valve stenosis I35.0 Cardiac valve disease etiology: nonrheumatic Peripheral arterial disease I73.9 Chronic anticoagulation Z79.01 Acute kidney injury superimposed on chronic kidney disease N17.9; N18.9 Acute blood loss anemia D62 Cellulitis L03.90 RLS (restless legs syndrome) G25.81 COPD with acute exacerbation J44.1 On home oxygen therapy Z99.81 SHARON (obstructive sleep apnea) G47.33 Lower extremity edema R60.0
[2024-05-12] MEDS: acetylcysteine 200 mg/mL MDV 10 mL INHALATION ×2 (13:25→20:08)
--- NOTE | 2024-05-12 13:27 | P.PN_ITS ---
Subjective 2 Subjective: Patient is chest pain-free. His BUN and creatinine levels are going up. Urine output is not improving. Has some tight feeling in the chest. Overall symptoms are better. Denies any leg pain. Medications: Medication Review Details: Current Medications Acetaminophen (Acetaminophen 325 Mg Tablet) 650 mg PO Q6H PRN PRN Reason: MILD PAIN Acetylcysteine (Acetylcysteine 200 Mg/Ml Mdv 10 Ml) 200 mg INHALATION Q6H.RESP [facility] Last Admin: 05/12/24 13:25 Dose: 200 mg Albuterol/Ipratropium (Ipratropium-Albuterol 3 Ml Neb) 3 ml INHALATION Q6H.RESP AMANDA Last Admin: 05/12/24 13:25 Dose: 3 ml Albuterol/Ipratropium (Ipratropium-Albuterol 3 Ml Neb) 3 ml INHALATION Q6H PRN PRN Reason: SHORTNESS OF BREATH Last Admin: 05/09/24 15:49 Dose: 3 ml Allopurinol (Allopurinol 100 Mg Tablet) 100 mg PO DAILY [facility] Last Admin: 05/12/24 08:08 Dose: 100 mg Amiodarone HCl (Amiodarone 200 Mg Tablet) 400 mg PO BID [facility] Last Admin: 05/12/24 08:08 Dose: 400 mg Apixaban (Apixaban 5 Mg Tablet) 2.5 mg PO BID@0900,2100 [facility] Last Admin: 05/10/24 09:45 Dose: Not Given Atorvastatin Calcium (Atorvastatin 40 Mg Tablet) 40 mg PO BEDTIME [facility] Last Admin: 05/11/24 20:00 Dose: 40 mg Bacitracin (Bacitracin Ointment Pkt) 1 each TOPICAL TID [facility]; Protocol Last Admin: 05/12/24 08:09 Dose: 1 each Betamethasone/Clotrimazole (Clotrimazole-Betamethasone Cream 15gm) 1 applic TOPICAL TID [facility] Last Admin: 05/12/24 08:10 Dose: 1 applic Bumetanide (Bumetanide 0.25 Mg/Ml Sdv 10 Ml) 2 mg IVP Q8H [facility] Last Admin: 05/12/24 03:41 Dose: 2 mg Carbidopa/Levodopa (Carbidopa-Levodopa 25-100mg Tablet) 0.5 each PO TID [facility] Last Admin: 05/12/24 08:08 Dose: 0.5 each Clopidogrel Bisulfate (Clopidogrel 75 Mg Tablet) 75 mg PO DAILY [facility] Last Admin: 05/12/24 08:08 Dose: 75 mg Collagenase (Collagenase Oint 30 Gm) 1 applic TOPICAL DAILY [facility] Last Admin: 05/12/24 08:10 Dose: 1 applic Diltiazem HCl (Diltiazem 30 Mg Tablet) 30 mg PO QID [facility] Last Admin: 05/10/24 09:31 Dose: 30 mg Docusate Sodium (Docusate Sodium 100 Mg Capsule) 100 mg PO BID [facility] Last Admin: 05/12/24 08:08 Dose: 100 mg Ferrous Sulfate (Ferrous Sulfate Ec 325 Mg Tablet) 325 mg PO BIDWM [facility] Last Admin: 05/12/24 08:08 Dose: 325 mg Finasteride (Finasteride 5 Mg Tablet) 5 mg PO BEDTIME [facility] Last Admin: 05/11/24 20:00 Dose: 5 mg Guaifenesin (Guaifenesin 600 Mg Tablet) 600 mg PO BID [facility] Last Admin: 05/12/24 08:08 Dose: 600 mg Norepinephrine Bitartrate (Levophed) 4 mg in 250 mls @ 0 mls/hr IV .Q0M PRN; Protocol PRN Reason: MAP less than 65 Vancomycin HCl 1,000 mg/ (Sodium Chloride) 250 mls @ 250 mls/hr IV Q48H [facility] Last Infusion: 05/11/24 18:52 Dose: Infused Furosemide 100 mg/ Sodium (Chloride) 50 mls @ 0 mls/hr IV .Q0M [facility]; Protocol Last Admin: 05/12/24 11:25 Dose: 10 mg/hr, 5 mls/hr Dextrose (D10w) 125 mls @ 750 mls/hr IV PRN PRN PRN Reason: HYPOGLYCEMIA Last Infusion: 05/12/24 10:53 Dose: Infused Lactobacillus Acidophilus (Lactobacillus 1 Tablet) 2 tab PO BID [facility] Last Admin: 05/12/24 08:09 Dose: 2 tab Lactulose (Lactulose Oral Liq 20 Gm/30 Ml Udc) 10 gm PO DAILY PRN PRN Reason: Constipation Morphine Sulfate (Morphine 4 Mg/Ml Sdv 1 Ml) 2 mg IVP Q4H PRN PRN Reason: SHORTNESS OF BREATH Last Admin: 05/12/24 03:42 Dose: 2 mg Ondansetron HCl (Ondansetron 2 Mg/Ml Sdv 2 Ml) 4 mg IVP Q6H PRN PRN Reason: NAUSEA AND VOMITING Pantoprazole Sodium (Pantoprazole Dr 40 Mg Tablet) 40 mg PO DAILY [facility] Last Admin: 05/12/24 08:08 Dose: 40 mg Ranolazine (Ranolazine (12hr) 500 Mg Tablet) 500 mg PO BID [facility] Last Admin: 05/12/24 08:08 Dose: 500 mg Ropinirole HCl (Ropinirole 2 Mg Tablet) 1 mg PO QPM [facility] Last Admin: 05/11/24 17:51 Dose: 1 mg Senna (Sennosides 8.6 Mg Tablet) 17.2 mg PO BEDTIME [facility] Last Admin: 05/11/24 19:59 Dose: 17.2 mg Senna/Docusate Sodium (Sennosides-Docusate Tablet) 1 tab PO DAILY [facility] Tamsulosin HCl (Tamsulosin 0.4 Mg Capsule) 0.4 mg PO DAILY [facility] Last Admin: 05/12/24 08:08 Dose: 0.4 mg Vitals/I&O/Wt Last Vital Signs Temp 97.5 F L 05/12/24 07:56 Pulse 84 05/12/24 13:25 Resp 20 H 05/12/24 13:25 BP 110/79 05/12/24 12:30 Pulse Ox 91 05/12/24 13:25 O2 Del Method Nasal Cannula 05/12/24 13:25 O2 Flow Rate 5 05/12/24 13:25 FiO2 30 05/12/24 05:30 05/11/24 05/12/24 05/12/24 22:59 06:59 14:59 Intake Total 840 / 1290 120 / 1410 845.1 / 845.1 Output Total 500 / 800 300 / 1100 Balance 340 / 490 -180 / 310 845.1 / 845.1 Weight last 48 hrs Weight 210 lb 8.663 oz Weight 206 lb 2.115 oz Physical Exam 2 Narrative: GENERAL: The patient is alert and oriented x 3. Not in any acute distress. HEENT: No significant pallor, icterus or lymphadenopathy.Oral cavity: There are no mucous membrane lesions. NECK: Trachea appears to be central. No masses noted. No JVD or thyromegaly appreciated. RESPIRATORY: Scattered diffuse expiratory wheezing and coarse crackles bilaterally BREASTS: Deferred. HEART: The heart sounds are normal. No S3 or S4. Short systolic murmur in the left renal border. No pericardial rub ABDOMEN: No vessel pulsations or distention. No tenderness. No organomegaly appreciated. Bowel sounds are normally heard. : Deferred. RECTAL: Deferred. LYMPHATIC: No lymphadenopathy noted in the neck. EXTREMITIES: 2+ edema both lower extremities. Some weeping ulcers on the anterior aspect of the right leg MUSCULOSKELETAL: No acute joint deformities or swelling SKIN: There are no significant rashes or ecchymosis. Features of chronic venous stasis and stasis dermatitis especially on the left leg. Small superficial ulcers in the right leg. NEUROPSYCHIATRIC: The patient is alert and oriented x3. Not in any distress. Urinary Catheter Management: Squires: Cath Placed During This Visit: yes Reason for Continuing Indwelling Catheter: Accurate Measurement of Urinary Output in Critically Ill Patients Urinary Catheter Date of Insertion: 05/09/24 Urinary Catheter Time of Insertion: 14:29 Data 05/12/24 04:57 05/12/24 13:12 A&P Assessment and plan (1) Atherosclerotic heart disease of [place] coronary artery with unstable angina pectoris: Patient seems to have significant improvement of the chest pain. At this point, we may continue on the current medications. If he continues to remain stable, he may not require any further investigations at this point. Qualifiers: [place] vs. transplanted heart: [place] heart Qualified Code(s): I25.110 - Atherosclerotic heart disease of [place] coronary artery with unstable angina pectoris (2) Hypotension: The blood pressure seems to be stable, may continue on the current management. Qualifiers: Hypotension type: other hypotension type Qualified Code(s): I95.89 - Other hypotension (3) Atrial fibrillation: Patient is in atrial fibrillation with controlled ventricular response rate. May continue on the current treatment. Qualifiers: Atrial fibrillation type: persistent (not longstanding) Qualified Code(s): I48.19 - Other persistent atrial fibrillation (4) Acute on chronic diastolic heart failure: The BUN/creatinine is going up. Consider nephrology consult (5) Hyperlipidemia: May continue on the current medication Qualifiers: Hyperlipidemia type: unspecified Qualified Code(s): E78.5 - Hyperlipidemia, unspecified (6) Peripheral arterial disease: Ideally this patient requires a peripheral angiogram to better evaluate the peripheral arteries. However because of the worsening kidney function, there is a high chance of him ending up requiring hemodialysis. I discussed this with the patient and his family in detail which they understood well. Since the patient is having no leg pain, I may hold off on any invasive procedures at this point (7) Anemia: The hemoglobin seems to be steady. The etiology is not clear. He may need further workup. Qualifiers: Anemia type: unspecified type Qualified Code(s): D64.9 - Anemia, unspecified (8) Aortic stenosis: The patient seems to have a severe low gradient aortic valve stenosis. Qualifiers: Cardiac valve disease etiology: nonrheumatic Qualified Code(s): I35.0 - Nonrheumatic aortic (valve) stenosis Plan Continue on the current measures for the time being. Patient is on IV Lasix. Possible nephrology consult today. Discussed with the patient and his family in detail about his current condition and treatment options. Attestations 2 Medical Necessity Statement*: Deferred to the primary Coding Level of Care Code 68745 Diagnoses Atherosclerosis of [place] coronary artery of [place] heart with unstable angina pectoris I25.110 [place] vs. transplanted heart: [place] heart Other specified hypotension I95.89 Hypotension type: other hypotension type Persistent atrial fibrillation I48.19 Atrial fibrillation type: persistent (not longstanding) Acute on chronic diastolic heart failure I50.33 Hyperlipidemia, unspecified hyperlipidemia type E78.5 Hyperlipidemia type: unspecified Peripheral arterial disease I73.9 Anemia D64.9 Anemia type: unspecified type Nonrheumatic aortic valve stenosis I35.0 Cardiac valve disease etiology: nonrheumatic
[2024-05-12 13:55] LABS: Urine Random Chloride 34 mmol/L; Urine Random Sodium 28 mmol/L
[2024-05-12 13:55] LABS: Alanine Aminotransferase < 5 U/L (0-41); Albumin Level 3.2 g/dL (3.5-5.2); Alkaline Phosphatase 87 U/L (40-130); Anion Gap 18.6 (5-19); Aspartate Amino Transferase 18 U/L (0-40); Calcium 8.5 mg/dL (8.5-10.5); Carbon Dioxide 23 mmol/L (22-29); Chloride 99 mmol/L (98-107); Creatinine Clr Calc Pharmacy 15.7647; Globulin 2.3 g/dL (1.3-4.6); Glucose 93 mg/dL (65-115); Potassium 5.6 mmol/L (3.5-5.1); Sodium 135 mmol/L (136-145); Total Bilirubin 0.4 mg/dL (0.15-1.2); Total Protein 5.5 g/dL (6.6-8.7)
[2024-05-12 14:00] LABS: Creatinine Urine, Random 60 mg/dL (39-259)
[2024-05-12 14:15] LABS: Microalbum Creatinine Ratio Ur 817 mg/dL (0-20); Microalbumin Random Urine 49 ug/dL (0-20)
[2024-05-12 14:18] LABS: Blood Urea Nitrogen 133 mg/dL (8-23); Osmolality Calculated 323 mOsm/kg (285-295)
[2024-05-12] MEDS: ropinirole 2 mg Tablet 1 MG PO (17:13)
[2024-05-12] MEDS: FUROsemide 200 MG in sodium chloride 0.9% (100 ml) 80 ML 10 MG IV ×2 (18:04→20:16)
[2024-05-12] MEDS: sennosides 8.6 mg Tablet 17.2 MG PO (20:38)
[2024-05-12] MEDS: atorvastatin 40 mg Tablet PO (20:39)
[2024-05-12] MEDS: finasteride 5 mg Tablet PO (20:40)
[2024-05-12] MEDS: norepinephrine 4 MG/250 ML BAG 7.5 MG IV (22:04)
[2024-05-12] MEDS: FUROsemide 200 MG in sodium chloride 0.9% (100 ml) 80 ML 30 MG IV (23:23)
[2024-05-13] VITALS (59 sets, daily range): BP systolic 95–161; BP diastolic 38–136; PULSE 68–105; RESP 11–29; TEMP 36.5–36.7; O2SAT 83–100
[2024-05-13] MEDS: ipratropium-albuterol 3 mL Neb INHALATION ×4 (03:02→20:04)
[2024-05-13] MEDS: acetylcysteine 200 mg/mL MDV 10 mL INHALATION ×4 (03:03→20:04)
[2024-05-13] MEDS: FUROsemide 200 MG in sodium chloride 0.9% (100 ml) 80 ML 20 MG IV ×2 (03:06→08:38)
[2024-05-13 05:13] LABS: Basophils % 0.1 %; Hematocrit 24.9 % (37-53); Lymphocytes # 0.3 10^3/uL (0.8-4.8); Lymphocytes % 2.5 %; Mean Corpuscular HGB Conc 30.9 g/dL (30-55); Mean Corpuscular Volume 103.3 fl (82-101); Mean Platelet Volume 9.5 fL (7.4-10.4); Monocytes # 1.4 10^3/uL (0.2-0.9); Monocytes % 10.5 %; Neutrophils # 11.13 10^3/uL (1.8-7.7); Neutrophils % 85.8 %; Nucleated Red Blood Cells % 0.2 %; Platelet Count 261 10^3/cmm (157-399); Red Blood Count 2.41 10^6/uL (3.85-5.65); Red Cell Distribution Width 21.2 % (12.1-15.1); White Blood Count 12.97 10^3/uL (3.29-11.43)
[2024-05-13 05:39] LABS: Anion Gap 19.8 (5-19); Calcium 8.6 mg/dL (8.5-10.5); Carbon Dioxide 24 mmol/L (22-29); Chloride 100 mmol/L (98-107); Glucose 97 mg/dL (65-115); Potassium 4.8 mmol/L (3.5-5.1); Sodium 139 mmol/L (136-145)
[2024-05-13 05:56] LABS: Blood Urea Nitrogen 158 mg/dL (8-23); Creatinine Clr Calc Pharmacy 15.7647; Osmolality Calculated 340 mOsm/kg (285-295)
--- NOTE | 2024-05-13 09:42 | P.CONIM_ITS ---
Providers/Reason For Consult 2 Consulting Physician/Specialty*: [facility]/Nephrology Reason for Consult*: Acute on CKD Attending Physician: Guera Riggs MD Primary Care Provider: Gwen Sanon NP History of Present Illness History of Present Illness Steven Tee is a 89 year old male Patient is 89-year-old male with past medical history of coronary artery disease status postcoronary artery bypass grafting, peripheral vascular disease, history of popliteal bypass surgery, A- fib was admitted to the hospital on 05/09/2024 due to shortness of breath and generalized weakness. Patient was noted to be hypotensive in the emergency department. Also has severe anemia with a hemoglobin around 7. Patient has chronic kidney disease with a baseline creatinine in the 2 range but now present with the creatinine of 3.5 with a uremia with a BUN close 200, potassium was 5.3. Patient noted to have volume overload was placed on Lasix drip with reasonable diuresis. Patient also getting steroids. Noted to have worsening uremia Review of Systems 2 Narrative: Other review of systems negative Medications/Allergies Home Medications Medication Instructions Recorded Confirmed Last Taken Type atorvastatin 40 mg tablet 40 mg PO QPM 04/16/20 05/09/24 05/08/24 History diltiazem HCl 180 mg 180 mg PO QAM 04/16/20 05/09/24 05/08/24 History capsule,extended release 24 hr (Cartia XT) finasteride 5 mg tablet 5 mg PO BEDTIME 04/16/20 05/09/24 05/08/24 History multivitamin 1 tab PO DAILY 04/16/20 05/09/24 05/08/24 History nitroglycerin 0.4 mg sublingual 0.4 mg sublingual Q5M PRN chest 02/11/21 05/09/24 03/09/24 Rx tablet (Nitrostat) pain #25 tabs omega-3 fatty acids 500 mg capsule 500 mg PO DAILY 09/04/22 05/09/24 05/08/24 History ropinirole 2 mg tablet 1 mg PO QPM 09/08/23 05/09/24 05/08/24 History isosorbide mononitrate 30 mg 30 mg PO BID #180 tabs 10/22/23 05/09/24 05/09/24 07:00 Rx tablet,extended release 24 hr ranolazine 500 mg tablet,extended 500 mg PO BID #180 tabs 11/23/23 05/09/24 05/09/24 07:00 Rx release,12 hr furosemide 40 mg tablet 40 mg PO BID 30 days #60 tabs 03/12/24 05/09/24 05/09/24 07:00 Rx apixaban 5 mg tablet (Eliquis) 2.5 mg (1/2 x 5 mg) PO BID #30 tabs 04/06/24 05/09/24 05/09/24 07:00 Rx clopidogrel 75 mg tablet 75 mg PO DAILY 04/18/24 05/09/24 05/09/24 07:00 History tamsulosin 0.4 mg capsule 0.4 mg PO DAILY 04/18/24 05/09/24 05/09/24 07:00 History bacitracin 500 unit/gram topical 1 applic topical BID #14 grams 04/19/24 05/09/24 05/08/24 Rx ointment cephalexin 500 mg capsule 500 mg PO BID #14 caps 05/03/24 05/09/24 05/09/24 07:00 Rx Magnalife See Rx Instructions .Route .COMPLEX 05/09/24 05/09/24 05/08/24 History calcium carb 333 mg-vit D3 133 1 tab PO DAILY 05/09/24 05/09/24 05/08/24 History unit-mag ox 133 mg-zinc oxide 5 mg tab carbidopa 25 mg-levodopa 100 mg 0.5 ea PO TID Restless Leg Syndrome 05/09/24 05/09/24 05/08/24 History tablet losartan 25 mg tablet 25 mg PO DAILY 05/09/24 05/09/24 05/08/24 History potassium chloride 20 mEq 20 meq PO BID PRN low potassium 05/09/24 05/09/24 Unknown History tablet,extended release (currently not scheduled) vitamin E 268 mg (400 unit) capsule 268 mg PO DAILY 05/09/24 05/09/24 05/08/24 History zolpidem 5 mg tablet 5 mg PO BEDTIME PRN Insomnia 05/09/24 05/09/24 Unknown History Allergies Allergy/AdvReac Type Severity Reaction Status Date / Time gabapentin Allergy ALGY-Rash Verified 05/09/24 09:33 Current Medications Generic Name Dose Route Start Last Admin Trade Name Freq PRN Reason Stop Dose Admin Acetylcysteine 200 mg 05/12/24 14:00 05/13/24 09:10 Acetylcysteine 200 Mg/Ml Mdv 10 Ml INHALATION 200 mg Q6H.RESP AMANDA Administration Albuterol/Ipratropium 3 ml 05/09/24 20:00 05/13/24 09:13 Ipratropium-Albuterol 3 Ml Neb INHALATION 3 ml Q6H.RESP AMANDA Administration Albuterol/Ipratropium 3 ml 05/09/24 15:16 05/09/24 15:49 Ipratropium-Albuterol 3 Ml Neb INHALATION 3 ml Q6H PRN Administration SHORTNESS OF BREATH Allopurinol 100 mg 05/10/24 09:00 05/12/24 08:08 Allopurinol 100 Mg Tablet PO 100 mg DAILY AMANDA Administration Amiodarone HCl 400 mg 05/10/24 18:00 05/12/24 17:13 Amiodarone 200 Mg Tablet PO 400 mg BID AMANDA Administration Apixaban 2.5 mg 05/09/24 21:00 05/10/24 09:45 Apixaban 5 Mg Tablet PO Not Given BID@0900,2100 [facility] Atorvastatin Calcium 40 mg 05/09/24 21:00 05/12/24 20:39 Atorvastatin 40 Mg Tablet PO 40 mg BEDTIME AMANDA Administration Bacitracin 1 each 05/09/24 21:00 05/12/24 20:32 Bacitracin Ointment Pkt TOPICAL 1 each TID AMANDA Administration Protocol Betamethasone/Clotrimazole 1 applic 05/09/24 21:00 05/12/24 20:32 Clotrimazole-Betamethasone Cream 15gm TOPICAL 1 applic TID AMANDA Administration Bumetanide 2 mg 05/11/24 12:10 05/12/24 03:41 Bumetanide 0.25 Mg/Ml Sdv 10 Ml IVP 2 mg Q8H AMANDA Administration Carbidopa/Levodopa 0.5 each 05/09/24 21:00 05/12/24 20:40 Carbidopa-Levodopa 25-100mg Tablet PO 0.5 each TID AMANDA Administration Clopidogrel Bisulfate 75 mg 05/10/24 09:00 05/12/24 08:08 Clopidogrel 75 Mg Tablet PO 75 mg DAILY AMANDA Administration Collagenase 1 applic 05/10/24 12:30 05/12/24 08:10 Collagenase Oint 30 Gm TOPICAL 1 applic DAILY AMANDA Administration Diltiazem HCl 30 mg 05/09/24 17:00 05/10/24 09:31 Diltiazem 30 Mg Tablet PO 30 mg QID AMANDA Administration Docusate Sodium 100 mg 05/09/24 18:00 05/12/24 17:14 Docusate Sodium 100 Mg Capsule PO 100 mg BID AMANDA Administration Ferrous Sulfate 325 mg 05/10/24 08:00 05/12/24 17:13 Ferrous Sulfate Ec 325 Mg Tablet PO 325 mg BIDWM AMANDA Administration Finasteride 5 mg 05/09/24 21:00 05/12/24 20:40 Finasteride 5 Mg Tablet PO 5 mg BEDTIME AMANDA Administration Guaifenesin 600 mg 05/09/24 18:00 05/12/24 17:13 Guaifenesin 600 Mg Tablet PO 600 mg BID AMANDA Administration Norepinephrine Bitartrate 4 mg in 250 mls @ 0 mls/hr 05/09/24 15:20 05/13/24 08:40 Levophed IV 0 mcg/min .Q0M PRN 0 mls/hr MAP less than 65 Titration Protocol Per Protocol Vancomycin HCl 1,000 mg/ 250 mls @ 250 mls/hr 05/09/24 18:00 05/11/24 18:52 Sodium Chloride IV Infused Q48H AMANDA Infusion Dextrose 125 mls @ 750 mls/hr 05/12/24 09:29 05/12/24 10:53 D10w IV Infused PRN PRN Infusion HYPOGLYCEMIA Lactobacillus Acidophilus 2 tab 05/09/24 18:00 05/12/24 17:13 Lactobacillus 1 Tablet PO 2 tab BID AMANDA Administration Morphine Sulfate 2 mg 05/09/24 19:30 05/12/24 03:42 Morphine 4 Mg/Ml Sdv 1 Ml IVP 2 mg Q4H PRN Administration SHORTNESS OF BREATH Pantoprazole Sodium 40 mg 05/10/24 09:00 05/12/24 08:[address] 40 Mg Tablet PO 40 mg DAILY AMANDA Administration Ranolazine 500 mg 05/09/24 18:00 05/12/24 17:13 Ranolazine (12hr) 500 Mg Tablet PO 500 mg BID AMANDA Administration Ropinirole HCl 1 mg 05/09/24 18:00 05/12/24 17:13 Ropinirole 2 Mg Tablet PO 1 mg QPM AMANDA Administration Senna 17.2 mg 05/09/24 21:00 05/12/24 20:38 Sennosides 8.6 Mg Tablet PO 17.2 mg BEDTIME AMANDA Administration Tamsulosin HCl 0.4 mg 05/10/24 09:00 05/12/24 08:08 Tamsulosin 0.4 Mg Capsule PO 0.4 mg DAILY AMANDA Administration PFSH Acute 2 PFSH: Medical History COPD (chronic obstructive pulmonary disease) RLS (restless legs syndrome) On carbidopa and Requip for this Aortic stenosis Peripheral arterial disease HTN (hypertension), benign Atrial fibrillation Diastolic CHF CKD (chronic kidney disease) Lower extremity edema Hypoxia Chronic stable angina Community acquired pneumonia Cellulitis and abscess of left leg Tobacco abuse SHARON (obstructive sleep apnea) Prescribed CPAP auto-titrating 5-9cm but not using due to feeling like suffocating; on oxygen at night History of sleep study (01/2021) severe obstructive sleep apnea, optimal pressure setting 6cm, with recommendation for auto-titrating CPAP 5-9 cm Atherosclerosis of leg with intermittent claudication History of cardioversion 03/16/2019 BPH (benign prostatic hyperplasia) Hyperlipidemia CAD (coronary artery disease) Varicose veins of bilateral lower extremities with other complications Surgical History S/P coronary angiogram 04/29/2007, 11/20/2021 ([facility]) S/P carotid endarterectomy S/P AAA (abdominal aortic aneurysm) repair with [place] endograft S/P femoral-femoral bypass surgery S/P CABG (coronary artery bypass graft) 1988 X1, 2006 X2 Family History Brother Cancer CAD (coronary artery disease) Diabetes Mother Heart disease CAD (coronary artery disease) Diabetes Sister CAD (coronary artery disease) Denies family history of Clotting disorder Dementia Chronic kidney disease (CKD) Suicide Anesthesia complication Bleeding disorder Lung disease Stroke Social History Smoking and tobacco/nicotine status: current every day tobacco/nicotine user Alcohol intake: never Substance/Drug Use: never Lives independently: No Household members: spouse Marital status: Vitals/I&O/Wt Last Vital Signs Temp 98.1 F 05/13/24 04:00 Pulse 92 05/13/24 09:13 Resp 20 H 05/13/24 09:13 BP 117/67 05/13/24 06:00 Pulse Ox 95 05/13/24 09:13 O2 Del Method Nasal Cannula 05/13/24 09:13 O2 Flow Rate 5 05/13/24 09:13 FiO2 30 05/13/24 05:00 05/12/24 05/13/24 05/13/24 22:59 06:59 14:59 Intake Total 285.833 / 1143.600 135.5 / 1279.100 179.5 / 179.5 Output Total 920 / 920 1240 / 2160 Balance -634.167 / 223.600 -1104.5 / -880.900 179.5 / 179.5 Weight last 48 hrs Weight 94.03 kg Weight 95.5 kg Physical Exam 2 Narrative: Patient is awake alert no distress HEENT S1-S2 regular rate and rhythm per report Lungs clear per report 1+ pedal edema Urinary Catheter Management: Squires: Cath Placed During This Visit: yes Reason for Continuing Indwelling Catheter: Accurate Measurement of Urinary Output in Critically Ill Patients Urinary Catheter Date of Insertion: 05/09/24 Urinary Catheter Time of Insertion: 14:29 Data 05/13/24 04:22 05/13/24 04:22 Micro: Microbiology 05/12/24 12:33 Gram Stain - Final Sputum - Expectorated Sputum A&P Assessment and plan (1) Acute kidney injury superimposed on chronic kidney disease: 1. Acute on chronic kidney disease: Patient's baseline creatinine is in the 2 range and now has an GODFREY and volume overload in the setting of possible CHF. Patient was on Lasix drip with reasonable diuresis so far, currently on 5 L O2 -Uremia likely combination of aggressive diuresis and steroid use -Will hold Lasix drip temporarily, will give IV albumin, monitor urine output, -If unable to diurese and renal function fails to improve-will consider temporary dialysis -Discussed with patient's family at bedside 2. Severe uremia, asymptomatic, mental status clear, monitor 3. Anemia: Hemoglobin 7.7, will order CLAUDIA, transfuse if hemoglobin drops below 7 4. Acute on chronic respiratory failure: On currently 5 L, multifactorial in the setting of CHF and pneumonia 5. History of hypertension 6. History of coronary artery disease Patient evaluated using audiovisual cart. Time spent 40 minutes. Consult Attestations 2 Medical Necessity Statement: per medicine Coding Level of Care Code Acute Code for Chg Fwd Diagnoses Acute kidney injury superimposed on chronic kidney disease N17.9; N18.9
[2024-05-13] MEDS: ferrous sulfate EC 325 mg Tablet PO (09:58)
[2024-05-13] MEDS: amiodarone 200 mg Tablet 400 MG PO ×2 (09:59→18:38)
[2024-05-13] MEDS: allopurinol 100 mg Tablet PO (09:59)
[2024-05-13] MEDS: sennosides-docusate Tablet 1 TAB PO (10:01)
[2024-05-13] MEDS: docusate sodium 100 mg Capsule PO ×2 (10:02→18:38)
[2024-05-13] MEDS: tamsulosin 0.4 mg Capsule PO (10:02)
[2024-05-13] MEDS: guaiFENesin 600 mg Tablet PO ×2 (10:02→18:38)
[2024-05-13] MEDS: pantoprazole DR 40 mg Tablet PO (10:02)
[2024-05-13] MEDS: carbidopa-levodopa 25-100mg Tablet 0.5 EACH PO ×3 (10:02→20:11)
[2024-05-13] MEDS: lactobacillus 1 Tablet 2 TAB PO ×2 (10:03→18:38)
[2024-05-13] MEDS: ranolazine (12HR) 500 mg Tablet PO ×2 (10:03→18:39)
[2024-05-13] MEDS: predniSONE 20 mg Tablet 40 MG PO (10:06)
[2024-05-13] MEDS: albumin 25 G/100 ML BAG 60 G IV (10:06)
[2024-05-13] MEDS: bacitracin ointment Pkt 1 EACH TOPICAL ×3 (10:07→20:14)
[2024-05-13] MEDS: clotrimazole-betamethasone cream 15gm 1 APPLIC TOPICAL ×3 (10:10→20:11)
[2024-05-13] MEDS: collagenase oint 30 gm 1 APPLIC TOPICAL (10:10)
--- NOTE | 2024-05-13 11:32 | PC.SOCIAL ---
IMM Update pg 2 of IMM updated and reviewed w/ patient. Copy provided and copy dated, initialed and placed in chart.
--- NOTE | 2024-05-13 11:55 | P.PN_ITS ---
Subjective 2 Subjective: Patient was examined, family was at the bedside ICU nurse present as well Adequate urine output with Lasix drip Hyperkalemia improved BUN worsened at 258 Hemoglobin stable No acute indication for dialysis patient is not showing signs of uremia Consulted nephro Had a very long family meeting, They were concerned because we do not have vascular back in case there is any complication with dialysis catheter placement they wanted to see if we can start the process of transfer with Connie or Jasbir Spoke with Dr. Cardona and Dr. Becker Patient made more than 2 L since initiation of Lasix drip Dr. Cardona a motor rebuilder has recommended holding off on Lasix drip for today and monitor kidney function he has received high-dose Lasix drip dose as per the EMR protocol We did go over indications of dialysis and what are uremic symptoms that would need dialysis, Patient and family completely understand that there is no acute indication and we shall monitoring if he would develop any uremic symptoms Dr. Becker was concerned in case he would start experiencing demand ischemia vwith initiation of dialysis he may need tertiary level of care Leukocytosis trending down Hemoglobin stable at 7.7 Creatinine stable 3.7 Vitals/I&O/Wt Last Vital Signs Temp 98.1 F 05/13/24 04:00 Pulse 93 05/13/24 10:30 Resp 19 H 05/13/24 10:30 BP 125/97 05/13/24 10:30 Pulse Ox 92 05/13/24 10:30 O2 Del Method Nasal Cannula 05/13/24 09:13 O2 Flow Rate 5 05/13/24 09:13 FiO2 30 05/13/24 05:00 05/12/24 05/13/24 05/13/24 22:59 06:59 14:59 Intake Total 285.833 / 1143.600 135.5 / 1279.100 250.167 / 250.167 Output Total 920 / 920 1240 / 2160 114 / 114 Balance -634.167 / 223.600 -1104.5 / -880.900 136.167 / 136.167 Weight last 48 hrs Weight 94.03 kg Weight 95.5 kg Physical Exam 2 Narrative: Signs of fluid load improving with skin wrinkling noted Still has cardiac wheezing Currently on 5 L Hemodynamically stable Pleasant and cooperative No asterixis noted I do not see any sign of encephalopathy or significant uremic confusion No skin new ulcers Petechial hemorrhage present all lower extremities Squires catheter in place Lower extremity swelling improving with skin wrinkling S1, S2 A-fib without RVR Urinary Catheter Management: Squires: Cath Placed During This Visit: yes Reason for Continuing Indwelling Catheter: Accurate Measurement of Urinary Output in Critically Ill Patients Urinary Catheter Date of Insertion: 05/09/24 Urinary Catheter Time of Insertion: 14:29 Data 05/13/24 04:22 05/13/24 04:22 Micro: Microbiology 05/12/24 12:33 Gram Stain - Final Sputum - Expectorated Sputum A&P Assessment and plan (1) Hypotension: Qualifiers: Hypotension type: other hypotension type Qualified Code(s): I95.89 - Other hypotension (2) Diastolic CHF: Qualifiers: Heart failure chronicity: acute on chronic Qualified Code(s): I50.33 - Acute on chronic diastolic (congestive) heart failure (3) Aortic stenosis: Qualifiers: Cardiac valve disease etiology: nonrheumatic Qualified Code(s): I35.0 - Nonrheumatic aortic (valve) stenosis (4) Atrial fibrillation: Qualifiers: Atrial fibrillation type: persistent (not longstanding) Qualified Code(s): I48.19 - Other persistent atrial fibrillation (5) Peripheral arterial disease: (6) Chronic anticoagulation: (7) Acute kidney injury superimposed on chronic kidney disease: (8) BPH (benign prostatic hyperplasia): Qualifiers: Lower urinary tract symptom presence: symptoms present Lower urinary tract symptom detail: urinary hesitancy Qualified Code(s): N40.1 - Benign prostatic hyperplasia with lower urinary tract symptoms; R39.11 - Hesitancy of micturition (9) Acute blood loss anemia: (10) Cellulitis: (11) RLS (restless legs syndrome): (12) On home oxygen therapy: (13) SHARON (obstructive sleep apnea): (14) Lower extremity edema: (15) Constipation: Plan Constipation: No bowel movement since admission I will give him lactulose, senna S and also add milk of molasses enema on as- needed basis Patient endorsing passage of flatus No abdominal pain nausea or vomiting Acute on chronic renal disease Adequate urine output with Lasix Lasix drip on hold Nephro consulted No acute indication for dialysis Plavix on hold 05/13 Eliquis discontinued 2 days ago No active signs of uremia however BUN is worsening High BUN could be related to underlying GI bleed use of steroids increased catabolic state versus worsening kidney function More than 2 L of urine made in last 24 hours Appreciate nephro recommendations No sign of acidosis or persistent hyperkalemia Hypervolemic state is improving as well Anemia of chronic disease status post 1 unit Rule out GI bleed No BM since admission Peripheral arterial disease: Cardiology recommended medical management No sign of acute limb ischemia Cellulitis: Continue antibiotics for now No sign of progression Cardiac wheezing: Low-dose prednisone added Acute on chronic hypoxia currently on 5 L Restless leg syndrome patient takes medication which have continued so far Establish coronary disease with recommendation for medical management Previous angiogram revealed atherosclerotic disease not amenable for intervention Renal diet Full code Continue ICU management Family was concerned since we do not have vascular backup and patient already is seeing 2 physicians at the [facility] they wanted a referral to tertiary care center however I did reassure them it does not happen in most of the cases but I will start the process and see if [facility] will accept the transfer Attestations 2 Medical Necessity Statement*: Continue medical management Diagnoses Other specified hypotension I95.89 Hypotension type: other hypotension type Acute on chronic diastolic congestive heart failure I50.33 Heart failure chronicity: acute on chronic Nonrheumatic aortic valve stenosis I35.0 Cardiac valve disease etiology: nonrheumatic Persistent atrial fibrillation I48.19 Atrial fibrillation type: persistent (not longstanding) Peripheral arterial disease I73.9 Chronic anticoagulation Z79.01 Acute kidney injury superimposed on chronic kidney disease N17.9; N18.9 Benign prostatic hyperplasia with urinary hesitancy N40.1; R39.11 Lower urinary tract symptom presence: symptoms present Lower urinary tract symptom detail: urinary hesitancy Acute blood loss anemia D62 Cellulitis L03.90 RLS (restless legs syndrome) G25.81 On home oxygen therapy Z99.81 SHARON (obstructive sleep apnea) G47.33 Lower extremity edema R60.0 Constipation K59.00
--- NOTE | 2024-05-13 13:53 | P.CONIM_ITS ---
Providers/Reason For Consult 2 Consulting Physician/Specialty*: General surgery Reason for Consult*: GI bleed Attending Physician: Guera Riggs MD Primary Care Provider: Gwen Sanon NP History of Present Illness History of Present Illness Steven Tee is a 89 year old male who was admitted to the hospital with acute blood loss anemia, chronic kidney injury, acute kidney injury coronary artery disease. I was consulted for evaluation for possible EGD for GI bleeding. Per patient report he has had several black stools in the last couple of months and during this hospital admission Hemoccult test was positive for blood. He denies abdominal pain denies any other additional GI complaints. Medications/Allergies Home Medications Medication Instructions Recorded Confirmed Last Taken Type atorvastatin 40 mg tablet 40 mg PO QPM 04/16/20 05/09/24 05/08/24 History diltiazem HCl 180 mg 180 mg PO QAM 04/16/20 05/09/24 05/08/24 History capsule,extended release 24 hr (Cartia XT) finasteride 5 mg tablet 5 mg PO BEDTIME 04/16/20 05/09/24 05/08/24 History multivitamin 1 tab PO DAILY 04/16/20 05/09/24 05/08/24 History nitroglycerin 0.4 mg sublingual 0.4 mg sublingual Q5M PRN chest 02/11/21 05/09/24 03/09/24 Rx tablet (Nitrostat) pain #25 tabs omega-3 fatty acids 500 mg capsule 500 mg PO DAILY 09/04/22 05/09/24 05/08/24 History ropinirole 2 mg tablet 1 mg PO QPM 09/08/23 05/09/24 05/08/24 History isosorbide mononitrate 30 mg 30 mg PO BID #180 tabs 10/22/23 05/09/24 05/09/24 07:00 Rx tablet,extended release 24 hr ranolazine 500 mg tablet,extended 500 mg PO BID #180 tabs 11/23/23 05/09/24 05/09/24 07:00 Rx release,12 hr furosemide 40 mg tablet 40 mg PO BID 30 days #60 tabs 03/12/24 05/09/24 05/09/24 07:00 Rx apixaban 5 mg tablet (Eliquis) 2.5 mg (1/2 x 5 mg) PO BID #30 tabs 04/06/24 05/09/24 05/09/24 07:00 Rx clopidogrel 75 mg tablet 75 mg PO DAILY 04/18/24 05/09/24 05/09/24 07:00 History tamsulosin 0.4 mg capsule 0.4 mg PO DAILY 04/18/24 05/09/24 05/09/24 07:00 History bacitracin 500 unit/gram topical 1 applic topical BID #14 grams 04/19/24 05/09/24 05/08/24 Rx ointment cephalexin 500 mg capsule 500 mg PO BID #14 caps 05/03/24 05/09/24 05/09/24 07:00 Rx Magnalife See Rx Instructions .Route .COMPLEX 05/09/24 05/09/24 05/08/24 History calcium carb 333 mg-vit D3 133 1 tab PO DAILY 05/09/24 05/09/24 05/08/24 History unit-mag ox 133 mg-zinc oxide 5 mg tab carbidopa 25 mg-levodopa 100 mg 0.5 ea PO TID Restless Leg Syndrome 05/09/24 05/09/24 05/08/24 History tablet losartan 25 mg tablet 25 mg PO DAILY 05/09/24 05/09/24 05/08/24 History potassium chloride 20 mEq 20 meq PO BID PRN low potassium 05/09/24 05/09/24 Unknown History tablet,extended release (currently not scheduled) vitamin E 268 mg (400 unit) capsule 268 mg PO DAILY 05/09/24 05/09/24 05/08/24 History zolpidem 5 mg tablet 5 mg PO BEDTIME PRN Insomnia 05/09/24 05/09/24 Unknown History Allergies Allergy/AdvReac Type Severity Reaction Status Date / Time gabapentin Allergy ALGY-Rash Verified 05/09/24 09:33 Current Medications Generic Name Dose Route Start Last Admin Trade Name Freq PRN Reason Stop Dose Admin Acetylcysteine 200 mg 05/12/24 14:00 05/13/24 13:19 Acetylcysteine 200 Mg/Ml Mdv 10 Ml INHALATION 200 mg Q6H.RESP AMANDA Administration Albuterol/Ipratropium 3 ml 05/09/24 20:00 05/13/24 13:18 Ipratropium-Albuterol 3 Ml Neb INHALATION 3 ml Q6H.RESP AMANDA Administration Albuterol/Ipratropium 3 ml 05/09/24 15:16 05/09/24 15:49 Ipratropium-Albuterol 3 Ml Neb INHALATION 3 ml Q6H PRN Administration SHORTNESS OF BREATH Allopurinol 100 mg 05/10/24 09:00 05/13/24 09:59 Allopurinol 100 Mg Tablet PO 100 mg DAILY AMANDA Administration Amiodarone HCl 400 mg 05/10/24 18:00 05/13/24 09:59 Amiodarone 200 Mg Tablet PO 400 mg BID AMANDA Administration Apixaban 2.5 mg 05/09/24 21:00 05/10/24 09:45 Apixaban 5 Mg Tablet PO Not Given BID@0900,2100 AMANDA Atorvastatin Calcium 40 mg 05/09/24 21:00 05/12/24 20:39 Atorvastatin 40 Mg Tablet PO 40 mg BEDTIME AMANDA Administration Bacitracin 1 each 05/09/24 21:00 05/13/24 10:07 Bacitracin Ointment Pkt TOPICAL 1 each TID AMANDA Administration Protocol Betamethasone/Clotrimazole 1 applic 05/09/24 21:00 05/13/24 10:10 Clotrimazole-Betamethasone Cream 15gm TOPICAL 1 applic TID AMANDA Administration Bumetanide 2 mg 05/11/24 12:10 05/12/24 03:41 Bumetanide 0.25 Mg/Ml Sdv 10 Ml IVP 2 mg Q8H AMANDA Administration Carbidopa/Levodopa 0.5 each 05/09/24 21:00 05/13/24 10:02 Carbidopa-Levodopa 25-100mg Tablet PO 0.5 each TID AMANDA Administration Clopidogrel Bisulfate 75 mg 05/10/24 09:00 05/12/24 08:08 Clopidogrel 75 Mg Tablet PO 75 mg DAILY AMANDA Administration Collagenase 1 applic 05/10/24 12:30 05/13/24 10:10 Collagenase Oint 30 Gm TOPICAL 1 applic DAILY AMANDA Administration Diltiazem HCl 30 mg 05/09/24 17:00 05/10/24 09:31 Diltiazem 30 Mg Tablet PO 30 mg QID AMANDA Administration Docusate Sodium 100 mg 05/09/24 18:00 05/13/24 10:02 Docusate Sodium 100 Mg Capsule PO 100 mg BID AMANDA Administration Ferrous Sulfate 325 mg 05/10/24 08:00 05/13/24 09:58 Ferrous Sulfate Ec 325 Mg Tablet PO 325 mg BIDWM AMANDA Administration Finasteride 5 mg 05/09/24 21:00 05/12/24 20:40 Finasteride 5 Mg Tablet PO 5 mg BEDTIME AMANDA Administration Guaifenesin 600 mg 05/09/24 18:00 05/13/24 10:02 Guaifenesin 600 Mg Tablet PO 600 mg BID AMANDA Administration Norepinephrine Bitartrate 4 mg in 250 mls @ 0 mls/hr 05/09/24 15:20 05/13/24 08:40 Levophed IV 0 mcg/min .Q0M PRN 0 mls/hr MAP less than 65 Titration Protocol Per Protocol Vancomycin HCl 1,000 mg/ 250 mls @ 250 mls/hr 05/09/24 18:00 05/11/24 18:52 Sodium Chloride IV Infused Q48H AMANDA Infusion Dextrose 125 mls @ 750 mls/hr 05/12/24 09:29 05/12/24 10:53 D10w IV Infused PRN PRN Infusion HYPOGLYCEMIA Lactobacillus Acidophilus 2 tab 05/09/24 18:00 05/13/24 10:03 Lactobacillus 1 Tablet PO 2 tab BID AMANDA Administration Morphine Sulfate 2 mg 05/09/24 19:30 05/12/24 03:42 Morphine 4 Mg/Ml Sdv 1 Ml IVP 2 mg Q4H PRN Administration SHORTNESS OF BREATH Pantoprazole Sodium 40 mg 05/10/24 09:00 05/13/24 10:[address] 40 Mg Tablet PO 40 mg DAILY AMANDA Administration Prednisone 40 mg 05/13/24 09:00 05/13/24 10:06 Prednisone 20 Mg Tablet PO 40 mg DAILY AMANDA Administration Ranolazine 500 mg 05/09/24 18:00 05/13/24 10:03 Ranolazine (12hr) 500 Mg Tablet PO 500 mg BID AMANDA Administration Ropinirole HCl 1 mg 05/09/24 18:00 05/12/24 17:13 Ropinirole 2 Mg Tablet PO 1 mg QPM AMANDA Administration Senna 17.2 mg 05/09/24 21:00 05/12/24 20:38 Sennosides 8.6 Mg Tablet PO 17.2 mg BEDTIME AMANDA Administration Senna/Docusate Sodium 1 tab 05/13/24 09:00 05/13/24 10:01 Sennosides-Docusate Tablet PO 1 tab DAILY AMANDA Administration Tamsulosin HCl 0.4 mg 05/10/24 09:00 05/13/24 10:02 Tamsulosin 0.4 Mg Capsule PO 0.4 mg DAILY AMANDA Administration PFSH Acute 2 PFSH: Medical History COPD (chronic obstructive pulmonary disease) RLS (restless legs syndrome) On carbidopa and Requip for this Aortic stenosis Peripheral arterial disease HTN (hypertension), benign Atrial fibrillation Diastolic CHF CKD (chronic kidney disease) Lower extremity edema Hypoxia Chronic stable angina Community acquired pneumonia Cellulitis and abscess of left leg Tobacco abuse SHARON (obstructive sleep apnea) Prescribed CPAP auto-titrating 5-9cm but not using due to feeling like suffocating; on oxygen at night History of sleep study (01/2021) severe obstructive sleep apnea, optimal pressure setting 6cm, with recommendation for auto-titrating CPAP 5-9 cm Atherosclerosis of leg with intermittent claudication History of cardioversion 03/16/2019 BPH (benign prostatic hyperplasia) Hyperlipidemia CAD (coronary artery disease) Varicose veins of bilateral lower extremities with other complications Surgical History S/P coronary angiogram 04/29/2007, 11/20/2021 ([facility]) S/P carotid endarterectomy S/P AAA (abdominal aortic aneurysm) repair with [place] endograft S/P femoral-femoral bypass surgery S/P CABG (coronary artery bypass graft) 1988 X1, 2006 X2 Family History Brother Cancer CAD (coronary artery disease) Diabetes Mother Heart disease CAD (coronary artery disease) Diabetes Sister CAD (coronary artery disease) Denies family history of Clotting disorder Dementia Chronic kidney disease (CKD) Suicide Anesthesia complication Bleeding disorder Lung disease Stroke Social History Smoking and tobacco/nicotine status: current every day tobacco/nicotine user Alcohol intake: never Substance/Drug Use: never Lives independently: No Household members: spouse Marital status: Vitals/I&O/Wt Last Vital Signs Temp 98.1 F 06/28/24 04:00 Pulse 86 05/13/24 13:19 Resp 18 05/13/24 13:19 BP 125/97 05/13/24 10:30 Pulse Ox 96 05/13/24 13:19 O2 Del Method Nasal Cannula 05/13/24 13:19 O2 Flow Rate 5 05/13/24 13:19 FiO2 30 05/13/24 05:00 05/12/24 05/13/24 05/13/24 22:59 06:59 14:59 Intake Total 285.833 / 1143.600 135.5 / 1279.100 250.167 / 250.167 Output Total 920 / 920 1240 / 2160 214 / 214 Balance -634.167 / 223.600 -1104.5 / -880.900 36.167 / 36.167 Weight last 48 hrs Weight 207 lb 4.8 oz Weight 210 lb 8.663 oz Physical Exam 2 GI: OTHER: Abdomen is soft, edematous, nontender, minimally distended. Urinary Catheter Management: [place]: Cath Placed During This Visit: yes Reason for Continuing Indwelling Catheter: Accurate Measurement of Urinary Output in Critically Ill Patients Urinary Catheter Date of Insertion: 05/09/24 Urinary Catheter Time of Insertion: 14:29 Data 05/13/24 04:22 05/13/24 04:22 Micro: Microbiology 05/13/24 11:40 Occult Blood (FIT) - Final Stool Routine Collection 05/12/24 12:33 Gram Stain - Final Sputum - Expectorated Sputum A&P Assessment and plan (1) Chronic anticoagulation: (2) Atrial fibrillation: Qualifiers: Atrial fibrillation type: persistent (not longstanding) Qualified Code(s): I48.19 - Other persistent atrial fibrillation (3) CKD (chronic kidney disease): Qualifiers: Chronic kidney disease stage: stage 3 (moderate) Chronic kidney disease stage 3 subtype: stage 3a (GFR 45-59) Qualified Code(s): N18.31 - Chronic kidney disease, stage 3a (4) Acute on chronic renal failure: Qualifiers: Acute renal failure type: with acute tubular necrosis Chronic kidney disease stage: stage 3 (moderate) Chronic kidney disease stage 3 subtype: stage 3b (GFR 30-44) Qualified Code(s): N17.0 - Acute kidney failure with tubular necrosis; N18.32 - Chronic kidney disease, stage 3b (5) GI bleeding: This 89-year-old male who is currently admitted to the ICU with acute blood loss anemia, acute on chronic kidney injury and suspected GI bleeding. I was consulted for possible endoscopy. Patient clinical presentation is most likely consistent with upper GI bleeding in the setting of chronic anticoagulation. I agree with the need of upper endoscopy. I will not offer lower endoscopy at this point as patient most likely will not tolerate bowel prep in his current clinical condition. I have discussed all risk and benefits of the upper endoscopy with the patient including the risks of bleeding, damage to soft tissue of the mouth and pharynx, perforation of the esophagus stomach or duodenum requiring surgical intervention transfer to higher level of care. Patient shows understanding and agrees to proceed. Endoscopy will be booked for tomorrow morning. In the interim patient can be continued on high-dose PPI with a suspect that diagnosis of upper GI bleeding. Coding Level of Care Code 00041 Diagnoses Chronic anticoagulation Z79.01 Persistent atrial fibrillation I48.19 Atrial fibrillation type: persistent (not longstanding) Stage 3a chronic kidney disease N18.31 Chronic kidney disease stage: stage 3 (moderate) Chronic kidney disease stage 3 subtype: stage 3a (GFR 45-59) Acute renal failure with acute tubular necrosis superimposed on stage 3b chronic kidney disease N17.0; N18.32 Acute renal failure type: with acute tubular necrosis Chronic kidney disease stage: stage 3 (moderate) Chronic kidney disease stage 3 subtype: stage 3b (GFR 30-44) GI bleeding K92.2
--- NOTE | 2024-05-13 14:26 | PM.PN ---
Subjective Subjective: Patient's BUN/creatinine ratio continues to go up. Nephrology is on board. Considering possible hemodialysis. Patient denies any chest pain or shortness of breath. Medications: Medication Review Details: Current Medications Acetaminophen (Acetaminophen 325 Mg Tablet) 650 mg PO Q6H PRN PRN Reason: MILD PAIN Acetylcysteine (Acetylcysteine 200 Mg/Ml Mdv 10 Ml) 200 mg INHALATION Q6H.RESP [facility] Last Admin: 05/13/24 13:19 Dose: 200 mg Albuterol/Ipratropium (Ipratropium-Albuterol 3 Ml Neb) 3 ml INHALATION Q6H.RESP AMANDA Last Admin: 05/13/24 13:18 Dose: 3 ml Albuterol/Ipratropium (Ipratropium-Albuterol 3 Ml Neb) 3 ml INHALATION Q6H PRN PRN Reason: SHORTNESS OF BREATH Last Admin: 05/09/24 15:49 Dose: 3 ml Allopurinol (Allopurinol 100 Mg Tablet) 100 mg PO DAILY AMANDA Last Admin: 05/13/24 09:59 Dose: 100 mg Amiodarone HCl (Amiodarone 200 Mg Tablet) 400 mg PO BID AMANDA Last Admin: 05/13/24 09:59 Dose: 400 mg Apixaban (Apixaban 5 Mg Tablet) 2.5 mg PO BID@0900,2100 [facility] Last Admin: 05/10/24 09:45 Dose: Not Given Atorvastatin Calcium (Atorvastatin 40 Mg Tablet) 40 mg PO BEDTIME [facility] Last Admin: 05/12/24 20:39 Dose: 40 mg Bacitracin (Bacitracin Ointment Pkt) 1 each TOPICAL TID [facility]; Protocol Last Admin: 05/13/24 10:07 Dose: 1 each Betamethasone/Clotrimazole (Clotrimazole-Betamethasone Cream 15gm) 1 applic TOPICAL TID [facility] Last Admin: 05/13/24 10:10 Dose: 1 applic Bumetanide (Bumetanide 0.25 Mg/Ml Sdv 10 Ml) 2 mg IVP Q8H [facility] Last Admin: 05/12/24 03:41 Dose: 2 mg Carbidopa/Levodopa (Carbidopa-Levodopa 25-100mg Tablet) 0.5 each PO TID [facility] Last Admin: 05/13/24 10:02 Dose: 0.5 each Clopidogrel Bisulfate (Clopidogrel 75 Mg Tablet) 75 mg PO DAILY [facility] Last Admin: 05/12/24 08:08 Dose: 75 mg Collagenase (Collagenase Oint 30 Gm) 1 applic TOPICAL DAILY [facility] Last Admin: 05/13/24 10:10 Dose: 1 applic Diltiazem HCl (Diltiazem 30 Mg Tablet) 30 mg PO QID [facility] Last Admin: 05/10/24 09:31 Dose: 30 mg Docusate Sodium (Docusate Sodium 100 Mg Capsule) 100 mg PO BID [facility] Last Admin: 05/13/24 10:02 Dose: 100 mg Doxycycline Monohydrate (Doxycycline 100 Mg Tablet) 100 mg PO BID [facility]; Protocol Ferrous Sulfate (Ferrous Sulfate Ec 325 Mg Tablet) 325 mg PO BIDWM [facility] Last Admin: 05/13/24 09:58 Dose: 325 mg Finasteride (Finasteride 5 Mg Tablet) 5 mg PO BEDTIME [facility] Last Admin: 05/12/24 20:40 Dose: 5 mg Guaifenesin (Guaifenesin 600 Mg Tablet) 600 mg PO BID [facility] Last Admin: 05/13/24 10:02 Dose: 600 mg Norepinephrine Bitartrate (Levophed) 4 mg in 250 mls @ 0 mls/hr IV .Q0M PRN; Protocol PRN Reason: MAP less than 65 Last Titration: 05/13/24 08:40 Dose: 0 mcg/min, 0 mls/hr Vancomycin HCl 1,000 mg/ (Sodium Chloride) 250 mls @ 250 mls/hr IV Q48H [facility] Last Infusion: 05/11/24 18:52 Dose: Infused Dextrose (D10w) 125 mls @ 750 mls/hr IV PRN PRN PRN Reason: HYPOGLYCEMIA Last Infusion: 05/12/24 10:53 Dose: Infused Sodium Chloride (Sodium Chloride 0.9%) 1,000 mls @ 30 mls/hr IV .Q24H ONE Stop: 05/14/24 13:11 Lactobacillus Acidophilus (Lactobacillus 1 Tablet) 2 tab PO BID [facility] Last Admin: 05/13/24 10:03 Dose: 2 tab Lactulose (Lactulose Oral Liq 20 Gm/30 Ml Udc) 10 gm PO DAILY PRN PRN Reason: Constipation Morphine Sulfate (Morphine 4 Mg/Ml Sdv 1 Ml) 2 mg IVP Q4H PRN PRN Reason: SHORTNESS OF BREATH Last Admin: 05/12/24 03:42 Dose: 2 mg Ondansetron HCl (Ondansetron 2 Mg/Ml Sdv 2 Ml) 4 mg IVP Q6H PRN PRN Reason: NAUSEA AND VOMITING Pantoprazole Sodium (Pantoprazole Dr 40 Mg Tablet) 40 mg PO DAILY [facility] Last Admin: 05/13/24 10:02 Dose: 40 mg Pantoprazole Sodium (Pantoprazole 40 Mg Sdv) 40 mg IVP BID [facility] Prednisone (Prednisone 20 Mg Tablet) 40 mg PO DAILY [facility] Last Admin: 05/13/24 10:06 Dose: 40 mg Ranolazine (Ranolazine (12hr) 500 Mg Tablet) 500 mg PO BID [facility] Last Admin: 05/13/24 10:03 Dose: 500 mg Ropinirole HCl (Ropinirole 2 Mg Tablet) 1 mg PO QPM [facility] Last Admin: 05/12/24 17:13 Dose: 1 mg Senna (Sennosides 8.6 Mg Tablet) 17.2 mg PO BEDTIME [facility] Last Admin: 05/12/24 20:38 Dose: 17.2 mg Senna/Docusate Sodium (Sennosides-Docusate Tablet) 1 tab PO DAILY [facility] Last Admin: 05/13/24 10:01 Dose: 1 tab Sodium Chloride (Sodium Chloride 0.9% 100 Ml Bag) 50 ml IV PRN PRN PRN Reason: Blood transfusion prime and flush Stop: 05/14/24 13:02 Sucralfate (Sucralfate 1 Gm Tablet) 1 gm PO AC&BEDTIME [facility] Tamsulosin HCl (Tamsulosin 0.4 Mg Capsule) 0.4 mg PO DAILY [facility] Last Admin: 05/13/24 10:02 Dose: 0.4 mg Vitals/I&O/Wt Last Vital Signs Temp 98.1 F 05/13/24 04:00 Pulse 86 05/13/24 13:19 Resp 18 05/13/24 13:19 BP 125/97 05/13/24 10:30 Pulse Ox 96 05/13/24 13:19 O2 Del Method Nasal Cannula 05/13/24 13:19 O2 Flow Rate 5 05/13/24 13:19 FiO2 30 05/13/24 05:00 05/12/24 05/13/24 05/13/24 22:59 06:59 14:59 Intake Total 285.833 / 1143.600 135.5 / 1279.100 250.167 / 250.167 Output Total 920 / 920 1240 / 2160 214 / 214 Balance -634.167 / 223.600 -1104.5 / -880.900 36.167 / 36.167 Weight last 48 hrs Weight 207 lb 4.8 oz Weight 210 lb 8.663 oz Physical Exam Narrative: GENERAL: The patient is alert and oriented x 3. Not in any acute distress. HEENT: No significant pallor, icterus or lymphadenopathy.Oral cavity: There are no mucous membrane lesions. NECK: Trachea appears to be central. No masses noted. No JVD or thyromegaly appreciated. RESPIRATORY: Scattered diffuse expiratory wheezing and coarse crackles bilaterally BREASTS: Deferred. HEART: The heart sounds are normal. No S3 or S4. Short systolic murmur in the left renal border. No pericardial rub ABDOMEN: No vessel pulsations or distention. No tenderness. No organomegaly appreciated. Bowel sounds are normally heard. : Deferred. RECTAL: Deferred. LYMPHATIC: No lymphadenopathy noted in the neck. EXTREMITIES: 2+ edema both lower extremities. Some weeping ulcers on the anterior aspect of the right leg MUSCULOSKELETAL: No acute joint deformities or swelling SKIN: There are no significant rashes or ecchymosis. Features of chronic venous stasis and stasis dermatitis especially on the left leg. Small superficial ulcers in the right leg. NEUROPSYCHIATRIC: The patient is alert and oriented x3. Not in any distress. Urinary Catheter Management: Squires: Cath Placed During This Visit: yes Reason for Continuing Indwelling Catheter: Accurate Measurement of Urinary Output in Critically Ill Patients Urinary Catheter Date of Insertion: 05/09/24 Urinary Catheter Time of Insertion: 14:29 Data 05/13/24 04:22 05/13/24 04:22 Other Labs: Laboratory Last Values WBC 12.97 10^3/uL (3.29-11.43) H 05/13/24 04:22 RBC 2.41 10^6/uL (3.85-5.65) L 05/13/24 04:22 Hgb 7.70 g/dL (11.27-16.99) L 05/13/24 04:22 Hct 24.9 % (37-53) L 05/13/24 04:22 MCV 103.3 fl (82-101) H 05/13/24 04:22 MCH 32.0 pg (27-33) 05/13/24 04:22 MCHC 30.9 g/dL (30-55) D 05/13/24 04:22 RDW 21.2 % (12.1-15.1) H 05/13/24 04:22 Plt Count 261 10^3/cmm (157-399) 05/13/24 04:22 MPV 9.5 fL (7.4-10.4) 05/13/24 04:22 Neut % (Auto) 85.8 % 05/13/24 04:22 Lymph % (Auto) 2.5 % 05/13/24 04:22 [place] % (Auto) 10.5 % 05/13/24 04:22 Eos % (Auto) 0.0 % 05/13/24 04:22 Baso % (Auto) 0.1 % 05/13/24 04:22 Neut # (Auto) 11.13 10^3/uL (1.8-7.7) H 05/13/24 04:22 Lymph # (Auto) 0.3 10^3/uL (0.8-4.8) L 05/13/24 04:22 [place] # (Auto) 1.4 10^3/uL (0.2-0.9) H 05/13/24 04:22 Eos # (Auto) 0.0 10^3/uL (0.0-0.8) 05/13/24 04:22 Baso # (Auto) 0.0 10^3/uL (0.0-0.1) 05/13/24 04:22 Nucleated RBC % (auto) 0.2 % 05/13/24 04:22 Nucleated RBCs # 0.0 /100WBC 05/13/24 04:22 PT 22.80 SECONDS (12.1-14.9) H 05/09/24 15:45 INR 1.93 (0.8-1.2) H 05/09/24 15:45 APTT 47.3 SECONDS (23.9-36.7) H 05/09/24 15:45 Specimen Type Arterial 05/10/24 04:13 Sample Site Radial, right 05/10/24 04:13 ABG pH 7.45 (7.35-7.45) 05/10/24 04:13 ABG pCO2 33.6 mmHg (35-45) L 05/10/24 04:13 ABG pO2 64.4 mmHg (80.0-100.0) L 05/10/24 04:13 ABG PO2/FiO2 Ratio 0 05/10/24 04:13 ABG HCO3 23.2 mmol/L (22-26) 05/10/24 04:13 ABG O2 Saturation 99.5 05/09/24 09:50 ABG Base Excess -0.6 mmol/L (-2.0-2.0) 05/10/24 04:13 [place] Test Pos 05/10/24 04:13 A-a O2 Gradient 13.1 mmHg (5-10) H 05/09/24 09:50 Hematocrit 25.3 % (42-52) L 05/10/24 04:13 Hgb O2 Saturation 95.5 % (95-100) 05/09/24 09:50 Carboxyhemoglobin 3.7 %THgb (0.4-20.1) 05/09/24 09:50 Methemoglobin 0.4 % (0.4-1.5) 05/09/24 09:50 Total Hemoglobin 7.2 g/dL (14-18) L 05/09/24 09:50 Sodium 132.0 mmol/L (131-143) 05/09/24 09:50 Potassium 4.7 mmol/L (3.5-5.0) 05/09/24 09:50 Glucose 97.0 mg/dL (70-115) 05/09/24 09:50 Ionized Calcium 1.2 mmol/L (1.1-1.4) 05/09/24 09:50 O2 Delivery Device Bipap 05/10/24 04:13 O2 Liters/Min 4.0 % 05/09/24 09:50 FiO2 30.0 % 05/10/24 04:13 Tidal Volume 0.40 05/10/24 04:13 Draw End Hand ID [place] 05/10/24 04:13 Sodium 139 mmol/L (136-145) 05/13/24 04:22 Potassium 4.8 mmol/L (3.5-5.1) 05/13/24 04:22 Chloride 100 mmol/L (98-107) 05/13/24 04:22 Carbon Dioxide 24 mmol/L (22-29) 05/13/24 04:22 Anion Gap 19.8 (5-19) H 05/13/24 04:22 BUN 158 mg/dL (8-23) H* 05/13/24 04:22 Creatinine 3.7 mg/dL (0.7-1.2) H 05/13/24 04:22 GFR Calculation Not Reportable 05/13/24 04:22 Glucose 97 mg/dL (65-115) 05/13/24 04:22 POC Glucose 136 mg/dL (70-110) H 05/12/24 11:27 Calculated Osmolality 340 mOsm/kg (285-295) H 05/13/24 04:22 Lactic Acid 1.6 mmol/L (0.5-2.2) 05/09/24 09:58 Uric Acid 11.9 mg/dL (3.4-7.0) H 05/09/24 09:58 Calcium 8.6 mg/dL (8.5-10.5) 05/13/24 04:22 Phosphorus 6.8 mg/dL (2.5-4.5) H 05/10/24 04:46 Magnesium 3.0 mg/dL (1.7-2.3) H 05/10/24 04:46 Iron 55 ug/dL (59-158) L 05/09/24 09:58 TIBC 315 mcg/dl 05/09/24 09:58 % Saturation 17.4 % (20-50) L 05/09/24 09:58 Unsat Iron Binding 260 ug/dL (112-347) 05/09/24 09:58 Total Bilirubin 0.4 mg/dL (0.15-1.2) 05/12/24 13:12 AST 18 U/L (0-40) 05/12/24 13:12 ALT < 5 U/L (0-41) 05/12/24 13:12 Alkaline Phosphatase 87 U/L (40-130) 05/12/24 13:12 Troponin T Baseline 74 ng/L (0-15) H 05/09/24 09:58 Troponin T 120 Minute 72.15 ng/L (0-15) H 05/09/24 13:05 Delta Troponin T -1.85 ABS# (0-10) L 05/09/24 13:05 Troponin T Hi Sens 6Hr 61.14 ng/L (0-15) H 05/09/24 15:45 Troponin T Hi Sens 6Hr Delta -12.86 ng/L (0-12) L 05/09/24 15:45 C-Reactive Protein 26.9 mg/L (0.0-4.9) H 05/09/24 09:58 NT-Pro-B Natriuret Pep 2199 pg/mL (0-450) H 05/09/24 09:58 Total Protein 5.5 g/dL (6.6-8.7) L 05/12/24 13:12 Albumin 3.2 g/dL (3.5-5.2) L 05/12/24 13:12 Globulin 2.3 g/dL (1.3-4.6) 05/12/24 13:12 Urine Color Yellow (Yellow) 05/09/24 14:27 Urine Appearance Clear (CLEAR) 05/09/24 14:27 Urine pH 5 (5-7) 05/09/24 14:27 Ur Specific [place] 1.020 (1.005-1.030) 05/09/24 14:27 Urine Protein Trace (Negative) 05/09/24 14:27 Urine Glucose (UA) Norm (Normal) 05/09/24 14:27 Urine Ketones 1+ (Negative) H 05/09/24 14:27 Urine Blood Neg (Negative) 05/09/24 14:27 Urine Nitrate Negative (Negative) 05/09/24 14:27 Urine Bilirubin Neg (Negative) 05/09/24 14:27 Urine Urobilinogen Neg mg/dL (Negative) 05/09/24 14:27 Ur Leukocyte Esterase Negative (Negative) 05/09/24 14:27 Urine RBC Rare /hpf (0-2) 05/09/24 14:27 Urine WBC 0-4 /hpf (0-5) H 05/09/24 14:27 Ur Squamous Epith Cells 0-4 /hpf (0-5) H 05/09/24 14:27 Ur Transition Epith Cell 0-4 /hpf 05/09/24 14:27 Amorphous Sediment Not Reportable 05/09/24 14:27 Urine Bacteria 1+ /hpf (NONE) H 05/09/24 14:27 Hyaline Casts 15-25 /lpf H 05/09/24 14:27 Urine Mucus Trace /hpf 05/09/24 14:27 Ur Random Microalbumin 49 ug/dL (0-20) H 05/12/24 13:17 Ur Random Sodium 28 mmol/L 05/12/24 13:17 Ur Random Chloride 34 mmol/L 05/12/24 13:17 Urine Creatinine 60 mg/dL (39-259) 05/12/24 13:17 Microalb/Creat Ratio 817 mg/dL (0-20) H 05/12/24 13:17 Adenovirus (PCR) Not detected (NOT DETECT) 05/09/24 10:00 C. pneumoniae DNA (PCR) Not detected (NOT DETECT) 05/09/24 10:00 Coronavirus 229E (PCR) Not detected (NOT DETECT) 05/09/24 10:00 Human Metapneumovir PCR Not detected (NOT DETECT) 05/09/24 10:00 Influenza A (H1) PCR Not detected (NOT DETECT) 05/09/24 10:00 Influ A (H1/09) PCR Not detected (NOT DETECT) 05/09/24 10:00 Influenza A (H3) PCR Not detected (NOT DETECT) 05/09/24 10:00 Influenza Type A (PCR) Not detected (NOT DETECT) 05/09/24 10:00 Influenza Type B (PCR) Not detected (NOT DETECT) 05/09/24 10:00 M. pneumoniae (PCR) Not detected (NOT DETECT) 05/09/24 10:00 Parainfluenza 1 (PCR) Not detected (NOT DETECT) 05/09/24 10:00 Parainfluenza 2 (PCR) Not detected (NOT DETECT) 05/09/24 10:00 Parainfluenza 3 (PCR) Not detected (NOT DETECT) 05/09/24 10:00 Parainfluenza 4 (PCR) Not detected (NOT DETECT) 05/09/24 10:00 RSV Type A (PCR) Not detected (NOT DETECT) 05/09/24 10:00 RSV Type B (PCR) Not detected (NOT DETECT) 05/09/24 10:00 Entero/Rhino (PCR) Not detected (NOT DETECT) 05/09/24 10:00 SARS-CoV-2 (PCR) Not detected (NOT DETECT) 05/09/24 10:00 Blood Type O Positive 05/13/24 13:30 Rho(D) Type Rh positive 05/13/24 13:30 Antibody Screen Negative 05/13/24 13:30 Crossmatch See Detail 05/13/24 13:30 Micro: Microbiology 05/13/24 11:40 Occult Blood (FIT) - Final Stool Routine Collection 05/12/24 12:33 Gram Stain - Final Sputum - Expectorated Sputum A&P Assessment and plan (1) Atherosclerotic heart disease of [place] coronary artery with unstable angina pectoris: Patient seems to have significant improvement of the chest pain. At this point, we may continue on the current medications. If he continues to remain stable, he may not require any further investigations at this point. Qualifiers: [place] vs. transplanted heart: [place] heart Qualified Code(s): I25.110 - Atherosclerotic heart disease of [place] coronary artery with unstable angina pectoris (2) Acute kidney injury superimposed on chronic kidney disease: Patient is in the process of getting hemodialysis. Because of his high risk status, there is a good possibility that he may develop unstable anginal symptoms with the dialysis. At that point, we will not be able to do any complex coronary intervention at our facility.(Coronary intervention was found to be difficult in the past ) this was discussed with the patient and family in detail. In anticipation of this possibility, it may be appropriate to do hemodialysis in a facility where complex coronary intervention can be performed. So patient and family would like to go to [facility] for further management (3) Hypotension: The blood pressure seems to be stable, may continue on the current management. Qualifiers: Hypotension type: other hypotension type Qualified Code(s): I95.89 - Other hypotension (4) Atrial fibrillation: Patient is in atrial fibrillation with controlled ventricular response rate. May continue on the current treatment. Qualifiers: Atrial fibrillation type: persistent (not longstanding) Qualified Code(s): I48.19 - Other persistent atrial fibrillation (5) Acute on chronic diastolic heart failure: The BUN/creatinine is going up. Consider nephrology consult (6) Hyperlipidemia: May continue on the current medication Qualifiers: Hyperlipidemia type: unspecified Qualified Code(s): E78.5 - Hyperlipidemia, unspecified (7) Peripheral arterial disease: Ideally this patient requires a peripheral angiogram to better evaluate the peripheral arteries. However because of the worsening kidney function, there is a high chance of him ending up requiring hemodialysis. I discussed this with the patient and his family in detail which they understood well. Since the patient is having no leg pain, I may hold off on any invasive procedures at this point (8) Anemia: The hemoglobin seems to be steady. The etiology is not clear. He may need further workup. Qualifiers: Anemia type: unspecified type Qualified Code(s): D64.9 - Anemia, unspecified (9) Aortic stenosis: The patient seems to have a severe low gradient aortic valve stenosis. Qualifiers: Cardiac valve disease etiology: nonrheumatic Qualified Code(s): I35.0 - Nonrheumatic aortic (valve) stenosis Plan Continue on the current measures for the time being. Patient is on IV Lasix. Possible nephrology consult today. Discussed with the patient and his family in detail about his current condition and treatment options. Attestations Medical Necessity Statement*: Disposition as per primary Coding Level of Care Code 43557 Diagnoses Atherosclerosis of [place] coronary artery of [place] heart with unstable angina pectoris I25.110 [place] vs. transplanted heart: [place] heart Acute kidney injury superimposed on chronic kidney disease N17.9; N18.9 Other specified hypotension I95.89 Hypotension type: other hypotension type Persistent atrial fibrillation I48.19 Atrial fibrillation type: persistent (not longstanding) Acute on chronic diastolic heart failure I50.33 Hyperlipidemia, unspecified hyperlipidemia type E78.5 Hyperlipidemia type: unspecified Peripheral arterial disease I73.9 Anemia D64.9 Anemia type: unspecified type Nonrheumatic aortic valve stenosis I35.0 Cardiac valve disease etiology: nonrheumatic
[2024-05-13] MEDS: sodium chloride 0.9% 100 mL Bag 50 ML IV (15:32)
[2024-05-13] MEDS: doxycycline 100 mg Tablet PO (18:38)
[2024-05-13] MEDS: pantoprazole 40 mg SDV IVP (18:39)
[2024-05-13] MEDS: vancomycin 1,000 MG in sodium chloride 0.9% 250 ML 250 MG IV (18:39)
[2024-05-13] MEDS: sucralfate 1 gm Tablet PO (20:11)
[2024-05-13] MEDS: finasteride 5 mg Tablet PO (20:11)
[2024-05-13] MEDS: sennosides 8.6 mg Tablet 17.2 MG PO (20:11)
[2024-05-13] MEDS: atorvastatin 40 mg Tablet PO (20:11)
[2024-05-14] VITALS (50 sets, daily range): BP systolic 89–130; BP diastolic 53–75; PULSE 75–106; RESP 13–31; TEMP 36.3–36.8; O2SAT 77–100
[2024-05-14] MEDS: acetylcysteine 200 mg/mL MDV 10 mL INHALATION ×3 (03:07→21:17)
[2024-05-14] MEDS: ipratropium-albuterol 3 mL Neb INHALATION ×3 (03:07→21:17)
[2024-05-14 03:58] LABS: Lymphocytes # 0.3 10^3/uL (0.8-4.8); Lymphocytes % 3.5 %; Mean Corpuscular HGB Conc 31.5 g/dL (30-55); Mean Corpuscular Hemoglobin 31.8 pg (27-33); Mean Corpuscular Volume 100.8 fl (82-101); Monocytes # 0.6 10^3/uL (0.2-0.9); Neutrophils # 6.66 10^3/uL (1.8-7.7); Neutrophils % 87.6 %; Nucleated Red Blood Cells % 0 %; Platelet Count 170 10^3/cmm (157-399); Red Blood Count 2.58 10^6/uL (3.85-5.65); Red Cell Distribution Width 21.5 % (12.1-15.1); White Blood Count 7.61 10^3/uL (3.29-11.43)
[2024-05-14 04:21] LABS: Anion Gap 16.8 (5-19); Calcium 8.4 mg/dL (8.5-10.5); Carbon Dioxide 25 mmol/L (22-29); Chloride 102 mmol/L (98-107); Creatinine Clr Calc Pharmacy 16.5419; Glucose 98 mg/dL (65-115); Potassium 4.8 mmol/L (3.5-5.1); Sodium 139 mmol/L (136-145)
[2024-05-14 04:45] LABS: Osmolality Calculated 336 mOsm/kg (285-295)
[2024-05-14 04:47] LABS: Blood Urea Nitrogen 146 mg/dL (8-23)
--- NOTE | 2024-05-14 07:37 | P.HP_ITS ---
Same Day Surgery H&P Indication for Procedure/HPI DATE OF PROCEDURE: May 14, 2024 CHIEF COMPLAINT/INDICATIONFOR SURGICAL PROCEDURE: GI bleeding PREOP DIAGNOSIS: upper GI Bleeding PLANNED PROCEDURE: Operation Date: 05/14/24 08:00 Proposed Procedures p EGD(Not Applicable) - Qasim Diana MD Medications/Allergies* Home Medications Medication Instructions Recorded Confirmed Type atorvastatin 40 mg tablet 40 mg PO QPM 04/16/20 05/09/24 History diltiazem HCl 180 mg 180 mg PO QAM 04/16/20 05/09/24 History capsule,extended release 24 hr (Cartia XT) finasteride 5 mg tablet 5 mg PO BEDTIME 04/16/20 05/09/24 History multivitamin 1 tab PO DAILY 04/16/20 05/09/24 History omega-3 fatty acids 500 mg capsule 500 mg PO DAILY 09/04/22 05/09/24 History ropinirole 2 mg tablet 1 mg PO QPM 09/08/23 05/09/24 History clopidogrel 75 mg tablet 75 mg PO DAILY 04/18/24 05/09/24 History tamsulosin 0.4 mg capsule 0.4 mg PO DAILY 04/18/24 05/09/24 History [place] See Rx Instructions .Route .COMPLEX 05/09/24 05/09/24 History calcium carb 333 mg-vit D3 133 1 tab PO DAILY 05/09/24 05/09/24 History unit-mag ox 133 mg-zinc oxide 5 mg tab carbidopa 25 mg-levodopa 100 mg 0.5 ea PO TID Restless Leg Syndrome 05/09/24 05/09/24 History tablet losartan 25 mg tablet 25 mg PO DAILY 05/09/24 05/09/24 History potassium chloride 20 mEq 20 meq PO BID PRN low potassium 05/09/24 05/09/24 History tablet,extended release (currently not scheduled) vitamin E 268 mg (400 unit) capsule 268 mg PO DAILY 05/09/24 05/09/24 History zolpidem 5 mg tablet 5 mg PO BEDTIME PRN Insomnia 05/09/24 05/09/24 History Allergies/Adverse Reactions Allergy/AdvReac Type Severity Reaction Status Date / Time gabapentin Allergy ALGY-Rash Verified 05/09/24 09:33 Current Medications: Generic Name Dose Route Start Last Admin Trade Name Freq PRN Reason Stop Dose Admin Acetylcysteine 200 mg 05/12/24 14:00 05/14/24 03:07 Acetylcysteine 200 Mg/Ml Mdv 10 Ml INHALATION 200 mg Q6H.RESP AMANDA Administration Albuterol/Ipratropium 3 ml 05/09/24 20:00 05/14/24 03:07 Ipratropium-Albuterol 3 Ml Neb INHALATION 3 ml Q6H.RESP AMANDA Administration Albuterol/Ipratropium 3 ml 05/09/24 15:16 05/09/24 15:49 Ipratropium-Albuterol 3 Ml Neb INHALATION 3 ml Q6H PRN Administration SHORTNESS OF BREATH Allopurinol 100 mg 05/10/24 09:00 05/13/24 09:59 Allopurinol 100 Mg Tablet PO 100 mg DAILY AMANDA Administration Amiodarone HCl 400 mg 05/10/24 18:00 05/13/24 18:38 Amiodarone 200 Mg Tablet PO 400 mg BID AMANDA Administration Apixaban 2.5 mg 05/09/24 21:00 05/10/24 09:45 Apixaban 5 Mg Tablet PO Not Given BID@0900,2100 [facility] Atorvastatin Calcium 40 mg 05/09/24 21:00 05/13/24 20:11 Atorvastatin 40 Mg Tablet PO 40 mg BEDTIME AMANDA Administration Bacitracin 1 each 05/09/24 21:00 05/13/24 20:14 Bacitracin Ointment Pkt TOPICAL 1 each TID AMANDA Administration Protocol Betamethasone/Clotrimazole 1 applic 05/09/24 21:00 05/13/24 20:11 Clotrimazole-Betamethasone Cream 15gm TOPICAL 1 applic TID AMANDA Administration Bumetanide 2 mg 05/11/24 12:10 05/12/24 03:41 Bumetanide 0.25 Mg/Ml Sdv 10 Ml IVP 2 mg Q8H AMANDA Administration Carbidopa/Levodopa 0.5 each 05/09/24 21:00 05/13/24 20:11 Carbidopa-Levodopa 25-100mg Tablet PO 0.5 each TID AMANDA Administration Clopidogrel Bisulfate 75 mg 05/10/24 09:00 05/12/24 08:08 Clopidogrel 75 Mg Tablet PO 75 mg DAILY AMANDA Administration Collagenase 1 applic 05/10/24 12:30 05/13/24 10:10 Collagenase Oint 30 Gm TOPICAL 1 applic DAILY AMANDA Administration Diltiazem HCl 30 mg 05/09/24 17:00 05/10/24 09:31 Diltiazem 30 Mg Tablet PO 30 mg QID AMANDA Administration Docusate Sodium 100 mg 05/09/24 18:00 05/13/24 18:38 Docusate Sodium 100 Mg Capsule PO 100 mg BID AMANDA Administration Doxycycline Monohydrate 100 mg 05/13/24 18:00 05/13/24 18:38 Doxycycline 100 Mg Tablet PO 100 mg BID AMANDA Administration Protocol Ferrous Sulfate 325 mg 05/10/24 08:00 05/13/24 09:58 Ferrous Sulfate Ec 325 Mg Tablet PO 325 mg BIDWM AMANDA Administration Finasteride 5 mg 05/09/24 21:00 05/13/24 20:11 Finasteride 5 Mg Tablet PO 5 mg BEDTIME AMANDA Administration Guaifenesin 600 mg 05/09/24 18:00 05/13/24 18:38 Guaifenesin 600 Mg Tablet PO 600 mg BID AMANDA Administration Norepinephrine Bitartrate 4 mg in 250 mls @ 0 mls/hr 05/09/24 15:20 05/13/24 08:40 Levophed IV 0 mcg/min .Q0M PRN 0 mls/hr MAP less than 65 Titration Protocol Per Protocol Vancomycin HCl 1,000 mg/ 250 mls @ 250 mls/hr 05/09/24 18:00 05/13/24 19:39 Sodium Chloride IV Infused Q48H AMANDA Infusion Dextrose 125 mls @ 750 mls/hr 05/12/24 09:29 05/12/24 10:53 D10w IV Infused PRN PRN Infusion HYPOGLYCEMIA Sodium Chloride 1,000 mls @ 30 mls/hr 05/13/24 13:12 05/13/24 19:24 Sodium Chloride 0.9% IV 05/14/24 13:11 Not Given .Q24H ONE Lactobacillus Acidophilus 2 tab 05/09/24 18:00 05/13/24 18:38 Lactobacillus 1 Tablet PO 2 tab BID AMANDA Administration Morphine Sulfate 2 mg 05/09/24 19:30 05/12/24 03:42 Morphine 4 Mg/Ml Sdv 1 Ml IVP 2 mg Q4H PRN Administration SHORTNESS OF BREATH Pantoprazole Sodium 40 mg 05/10/24 09:00 05/13/24 10:[address] 40 Mg Tablet PO 40 mg DAILY AMANDA Administration Pantoprazole Sodium 40 mg 05/13/24 18:00 05/13/24 18:39 Pantoprazole 40 Mg Sdv IVP 40 mg BID AMANDA Administration Prednisone 40 mg 05/13/24 09:00 05/13/24 10:06 Prednisone 20 Mg Tablet PO 40 mg DAILY AMANDA Administration Ranolazine 500 mg 05/09/24 18:00 05/13/24 18:39 Ranolazine (12hr) 500 Mg Tablet PO 500 mg BID AMANDA Administration Ropinirole HCl 1 mg 05/09/24 18:00 05/12/24 17:13 Ropinirole 2 Mg Tablet PO 1 mg QPM AMANDA Administration Senna 17.2 mg 05/09/24 21:00 05/13/24 20:11 Sennosides 8.6 Mg Tablet PO 17.2 mg BEDTIME AMANDA Administration Senna/Docusate Sodium 1 tab 05/13/24 09:00 05/13/24 10:01 Sennosides-Docusate Tablet PO 1 tab DAILY AMANDA Administration Sodium Chloride 50 ml 05/13/24 13:02 05/13/24 15:32 Sodium Chloride 0.9% 100 Ml Bag IV 05/14/24 13:02 50 ml PRN PRN Administration Blood transfusion prime and flush Sucralfate 1 gm 05/13/24 17:00 05/13/24 20:11 Sucralfate 1 Gm Tablet PO 1 gm AC&BEDTIME AMANDA Administration Tamsulosin HCl 0.4 mg 05/10/24 09:00 05/13/24 10:02 Tamsulosin 0.4 Mg Capsule PO 0.4 mg DAILY AMANDA Administration Pertinent History/Comorbid Conditions* Medical History (Updated 05/13/24 @ 13:55 by Qasim Diana MD) COPD (chronic obstructive pulmonary disease) RLS (restless legs syndrome) On carbidopa and Requip for this Aortic stenosis Peripheral arterial disease HTN (hypertension), benign Atrial fibrillation Diastolic CHF CKD (chronic kidney disease) Lower extremity edema Hypoxia Chronic stable angina Community acquired pneumonia Cellulitis and abscess of left leg Tobacco abuse SHARON (obstructive sleep apnea) Prescribed CPAP auto-titrating 5-9cm but not using due to feeling like suffocating; on oxygen at night History of sleep study (01/2021) severe obstructive sleep apnea, optimal pressure setting 6cm, with recommendation for auto-titrating CPAP 5-9 cm Atherosclerosis of leg with intermittent claudication History of cardioversion 03/16/2019 BPH (benign prostatic hyperplasia) Hyperlipidemia CAD (coronary artery disease) Varicose veins of bilateral lower extremities with other complications Surgical History (Updated 05/09/24 @ 13:10 by Mehnaz Gonzalez MD) S/P coronary angiogram 04/29/2007, 11/20/2021 ([place]) S/P carotid endarterectomy S/P AAA (abdominal aortic aneurysm) repair with [place] endograft S/P femoral-femoral bypass surgery S/P CABG (coronary artery bypass graft) 1988 X1, 2006 X2 Family History (Updated 06/18/21 @ 14:48 by Aby Cassdiy RN) Diabetes Brother Mother CAD (coronary artery disease) Brother Mother Sister Heart disease Mother Cancer Brother Denies family history of Clotting disorder Dementia Chronic kidney disease (CKD) Suicide Anesthesia complication Bleeding disorder Lung disease Stroke Social History Smoking and tobacco/nicotine status: current every day tobacco/nicotine user Alcohol intake: never Substance/Drug Use: never Lives independently: No Household members: spouse Marital status: Pertinent Exam Findings alert, oriented x 3 and clear to auscultation bilaterally Recommendations Surgery/Procedure today Coding Level of Care Code Acute Code for Chg Fwd
--- NOTE | 2024-05-14 07:46 | P.ANESASSM_ITS ---
Pre-Anesthetic Assessment Height/Weight: Height 1.73 m Weight 93.304 kg Temp Pulse Resp BP Pulse Ox O2 Del Method O2 Flow Rate 97.8 F 95 30 H 109/75 94 Nasal Cannula 5 05/14/24 04:00 05/14/24 06:00 05/14/24 06:00 05/14/24 06:00 05/14/24 06:00 05/14/24 06:00 05/14/24 06:00 FiO2 30 05/14/24 02:00 Preop Diagnosis: upper GI Bleeding Operation Date: 05/14/24 08:00 Proposed Procedures p EGD(Not Applicable) - Qasim Diana MD Familial anesthetic complications: None Was Beta Benito taken within 24 hours: N/A Was Clonidine taken within 24 hours: N/A Last intake: Nothing after midnight Social Tobacco and No alcohol 1 pack(s) per day 72 pack years Exam alert and oriented x 3 Exp. wheeze A.fib Airway Submandibular: within normal limits Cervical ROM: within normal limits Mallampati: Class III History/ROS No significant history except as noted and No significant complaints Pulmonary Chronic Obstructive Pulmonary Disease and Cough 2L O2 at night Possible pneumonia CV/HEM Atrial Fibrillation, Anemia, Arrythmia, Coronary Artery Disease, Congestive Heart Failure, Hypertension and Peripheral Vascular Disease CONCLUSIONS Normal LV size with a slightly diminished ejection fraction of 52%. Mild diffuse hypokinesia of the septal and anteroseptal segments. Severe low gradient aortic valve stenosis, mean gradient 15 mmHg, ANA 0.55 cm squared.trace to mild aortic valve regurgitation. Peak velocity of 2.94 m/s with a peak gradient of 35 mmHg. At least moderate mitral valve regurgitation. Moderate biatrial enlargement. [id number] tricuspid valve regurgitation. Estimated pulmonary artery peak systolic pressure 51 mmHg. Mild pulmonary valve regurgitation. Moderate dense plaque in the ascending aorta. There is no pericardial effusion. There are no intracardiac masses. Compared to the study from 02/24/2023, there is some worsening of the aortic valve stenosis and mitral regurgitation CABG surgery x2, stents Chronic Renal Failure Hepatic None reported GI GI bleed/anemia Metabolic Hyperlipidemia and Morbid Obesity Musc/skel Lower Back Pain, Osteoarthritis/DJD and Weakness Neuropsych Neuropathy and Syncope Anesthetic Plan ASA status: 4 Anesthesia: Anesthesia Evaluation, General and MAC Risk of > 500 ml blood loss (7ml/kg in children): No Medications/Allergies Home Medications Medication Instructions Recorded Confirmed Last Taken Type atorvastatin 40 mg tablet 40 mg PO QPM 04/16/20 05/09/24 05/08/24 History diltiazem HCl 180 mg 180 mg PO QAM 04/16/20 05/09/24 05/08/24 History capsule,extended release 24 hr (Cartia XT) finasteride 5 mg tablet 5 mg PO BEDTIME 04/16/20 05/09/24 05/08/24 History multivitamin 1 tab PO DAILY 04/16/20 05/09/24 05/08/24 History nitroglycerin 0.4 mg sublingual 0.4 mg sublingual Q5M PRN chest 02/11/21 05/09/24 03/09/24 Rx tablet (Nitrostat) pain #25 tabs omega-3 fatty acids 500 mg capsule 500 mg PO DAILY 09/04/22 05/09/24 05/08/24 History ropinirole 2 mg tablet 1 mg PO QPM 09/08/23 05/09/24 05/08/24 History isosorbide mononitrate 30 mg 30 mg PO BID #180 tabs 10/22/23 05/09/24 05/09/24 07:00 Rx tablet,extended release 24 hr ranolazine 500 mg tablet,extended 500 mg PO BID #180 tabs 11/23/23 05/09/24 05/09/24 07:00 Rx release,12 hr furosemide 40 mg tablet 40 mg PO BID 30 days #60 tabs 03/12/24 05/09/24 05/09/24 07:00 Rx apixaban 5 mg tablet (Eliquis) 2.5 mg (1/2 x 5 mg) PO BID #30 tabs 04/06/24 05/09/24 05/09/24 07:00 Rx clopidogrel 75 mg tablet 75 mg PO DAILY 04/18/24 05/09/24 05/09/24 07:00 History tamsulosin 0.4 mg capsule 0.4 mg PO DAILY 04/18/24 05/09/24 05/09/24 07:00 History bacitracin 500 unit/gram topical 1 applic topical BID #14 grams 04/19/24 05/09/24 05/08/24 Rx ointment cephalexin 500 mg capsule 500 mg PO BID #14 caps 05/03/24 05/09/24 05/09/24 07:00 Rx Magnalife See Rx Instructions .Route .COMPLEX 05/09/24 05/09/24 05/08/24 History calcium carb 333 mg-vit D3 133 1 tab PO DAILY 05/09/24 05/09/24 05/08/24 History unit-mag ox 133 mg-zinc oxide 5 mg tab carbidopa 25 mg-levodopa 100 mg 0.5 ea PO TID Restless Leg Syndrome 05/09/24 05/09/24 05/08/24 History tablet losartan 25 mg tablet 25 mg PO DAILY 05/09/24 05/09/24 05/08/24 History potassium chloride 20 mEq 20 meq PO BID PRN low potassium 05/09/24 05/09/24 Unknown History tablet,extended release (currently not scheduled) vitamin E 268 mg (400 unit) capsule 268 mg PO DAILY 05/09/24 05/09/24 05/08/24 History zolpidem 5 mg tablet 5 mg PO BEDTIME PRN Insomnia 05/09/24 05/09/24 Unknown History Allergies Allergy/AdvReac Type Severity Reaction Status Date / Time gabapentin Allergy ALGY-Rash Verified 05/09/24 09:33 Current Medications Generic Name Dose Route Start Last Admin Trade Name Freq PRN Reason Stop Dose Admin Acetylcysteine 200 mg 05/12/24 14:00 05/14/24 03:07 Acetylcysteine 200 Mg/Ml Mdv 10 Ml INHALATION 200 mg Q6H.RESP AMANDA Administration Albuterol/Ipratropium 3 ml 05/09/24 20:00 05/14/24 03:07 Ipratropium-Albuterol 3 Ml Neb INHALATION 3 ml Q6H.RESP AMANDA Administration Albuterol/Ipratropium 3 ml 05/09/24 15:16 05/09/24 15:49 Ipratropium-Albuterol 3 Ml Neb INHALATION 3 ml Q6H PRN Administration SHORTNESS OF BREATH Allopurinol 100 mg 05/10/24 09:00 05/13/24 09:59 Allopurinol 100 Mg Tablet PO 100 mg DAILY AMANDA Administration Amiodarone HCl 400 mg 05/10/24 18:00 05/13/24 18:38 Amiodarone 200 Mg Tablet PO 400 mg BID AMANDA Administration Apixaban 2.5 mg 05/09/24 21:00 05/10/24 09:45 Apixaban 5 Mg Tablet PO Not Given BID@0900,2100 AMANDA Atorvastatin Calcium 40 mg 05/09/24 21:00 05/13/24 20:11 Atorvastatin 40 Mg Tablet PO 40 mg BEDTIME AMANDA Administration Bacitracin 1 each 05/09/24 21:00 05/13/24 20:14 Bacitracin Ointment Pkt TOPICAL 1 each TID AMANDA Administration Protocol Betamethasone/Clotrimazole 1 applic 05/09/24 21:00 05/13/24 20:11 Clotrimazole-Betamethasone Cream 15gm TOPICAL 1 applic TID AMANDA Administration Bumetanide 2 mg 05/11/24 12:10 05/12/24 03:41 Bumetanide 0.25 Mg/Ml Sdv 10 Ml IVP 2 mg Q8H AMANDA Administration Carbidopa/Levodopa 0.5 each 05/09/24 21:00 05/13/24 20:11 Carbidopa-Levodopa 25-100mg Tablet PO 0.5 each TID AMANDA Administration Clopidogrel Bisulfate 75 mg 05/10/24 09:00 05/12/24 08:08 Clopidogrel 75 Mg Tablet PO 75 mg DAILY AMANDA Administration Collagenase 1 applic 05/10/24 12:30 05/13/24 10:10 Collagenase Oint 30 Gm TOPICAL 1 applic DAILY AMANDA Administration Diltiazem HCl 30 mg 05/09/24 17:00 05/10/24 09:31 Diltiazem 30 Mg Tablet PO 30 mg QID AMANDA Administration Docusate Sodium 100 mg 05/09/24 18:00 05/13/24 18:38 Docusate Sodium 100 Mg Capsule PO 100 mg BID AMANDA Administration Doxycycline Monohydrate 100 mg 05/13/24 18:00 05/13/24 18:38 Doxycycline 100 Mg Tablet PO 100 mg BID AMANDA Administration Protocol Ferrous Sulfate 325 mg 05/10/24 08:00 05/13/24 09:58 Ferrous Sulfate Ec 325 Mg Tablet PO 325 mg BIDWM AMANDA Administration Finasteride 5 mg 05/09/24 21:00 05/13/24 20:11 Finasteride 5 Mg Tablet PO 5 mg BEDTIME AMANDA Administration Guaifenesin 600 mg 05/09/24 18:00 05/13/24 18:38 Guaifenesin 600 Mg Tablet PO 600 mg BID AMANDA Administration Norepinephrine Bitartrate 4 mg in 250 mls @ 0 mls/hr 05/09/24 15:20 05/13/24 08:40 Levophed IV 0 mcg/min .Q0M PRN 0 mls/hr MAP less than 65 Titration Protocol Per Protocol Vancomycin HCl 1,000 mg/ 250 mls @ 250 mls/hr 05/09/24 18:00 05/13/24 19:39 Sodium Chloride IV Infused Q48H AMANDA Infusion Dextrose 125 mls @ 750 mls/hr 05/12/24 09:29 05/12/24 10:53 D10w IV Infused PRN PRN Infusion HYPOGLYCEMIA Sodium Chloride 1,000 mls @ 30 mls/hr 05/13/24 13:12 05/13/24 19:24 Sodium Chloride 0.9% IV 05/14/24 13:11 Not Given .Q24H ONE Lactobacillus Acidophilus 2 tab 05/09/24 18:00 05/13/24 18:38 Lactobacillus 1 Tablet PO 2 tab BID AMANDA Administration Morphine Sulfate 2 mg 05/09/24 19:30 05/12/24 03:42 Morphine 4 Mg/Ml Sdv 1 Ml IVP 2 mg Q4H PRN Administration SHORTNESS OF BREATH Pantoprazole Sodium 40 mg 05/10/24 09:00 05/13/24 10:[address] 40 Mg Tablet PO 40 mg DAILY AMANDA Administration Pantoprazole Sodium 40 mg 05/13/24 18:00 05/13/24 18:39 Pantoprazole 40 Mg Sdv IVP 40 mg BID AMANDA Administration Prednisone 40 mg 05/13/24 09:00 05/13/24 10:06 Prednisone 20 Mg Tablet PO 40 mg DAILY AMANDA Administration Ranolazine 500 mg 05/09/24 18:00 05/13/24 18:39 Ranolazine (12hr) 500 Mg Tablet PO 500 mg BID AMANDA Administration Ropinirole HCl 1 mg 05/09/24 18:00 05/12/24 17:13 Ropinirole 2 Mg Tablet PO 1 mg QPM AMANDA Administration Senna 17.2 mg 05/09/24 21:00 05/13/24 20:11 Sennosides 8.6 Mg Tablet PO 17.2 mg BEDTIME AMANDA Administration Senna/Docusate Sodium 1 tab 05/13/24 09:00 05/13/24 10:01 Sennosides-Docusate Tablet PO 1 tab DAILY AMANDA Administration Sodium Chloride 50 ml 05/13/24 13:02 05/13/24 15:32 Sodium Chloride 0.9% 100 Ml Bag IV 05/14/24 13:02 50 ml PRN PRN Administration Blood transfusion prime and flush Sucralfate 1 gm 05/13/24 17:00 05/13/24 20:11 Sucralfate 1 Gm Tablet PO 1 gm AC&BEDTIME AMANDA Administration Tamsulosin HCl 0.4 mg 05/10/24 09:00 05/13/24 10:02 Tamsulosin 0.4 Mg Capsule PO 0.4 mg DAILY AMANDA Administration Additional Medication Information Current Medications Acetaminophen (Acetaminophen 325 Mg Tablet) 650 mg PO Q6H PRN PRN Reason: MILD PAIN Acetylcysteine (Acetylcysteine 200 Mg/Ml Mdv 10 Ml) 200 mg INHALATION Q6H.RESP AMANDA Last Admin: 05/13/24 13:19 Dose: 200 mg Albuterol/Ipratropium (Ipratropium-Albuterol 3 Ml Neb) 3 ml INHALATION Q6H.RESP AMANDA Last Admin: 05/13/24 13:18 Dose: 3 ml Albuterol/Ipratropium (Ipratropium-Albuterol 3 Ml Neb) 3 ml INHALATION Q6H PRN PRN Reason: SHORTNESS OF BREATH Last Admin: 05/09/24 15:49 Dose: 3 ml Allopurinol (Allopurinol 100 Mg Tablet) 100 mg PO DAILY AMANDA Last Admin: 05/13/24 09:59 Dose: 100 mg Amiodarone HCl (Amiodarone 200 Mg Tablet) 400 mg PO BID AMANDA Last Admin: 05/13/24 09:59 Dose: 400 mg Apixaban (Apixaban 5 Mg Tablet) 2.5 mg PO BID@0900,2100 AMANDA Last Admin: 05/10/24 09:45 Dose: Not Given Atorvastatin Calcium (Atorvastatin 40 Mg Tablet) 40 mg PO BEDTIME AMANDA Last Admin: 05/12/24 20:39 Dose: 40 mg Bacitracin (Bacitracin Ointment Pkt) 1 each TOPICAL TID AMANDA; Protocol Last Admin: 05/13/24 10:07 Dose: 1 each Betamethasone/Clotrimazole (Clotrimazole-Betamethasone Cream 15gm) 1 applic TOPICAL TID AMANDA Last Admin: 05/13/24 10:10 Dose: 1 applic Bumetanide (Bumetanide 0.25 Mg/Ml Sdv 10 Ml) 2 mg IVP Q8H [facility] Last Admin: 05/12/24 03:41 Dose: 2 mg Carbidopa/Levodopa (Carbidopa-Levodopa 25-100mg Tablet) 0.5 each PO TID [facility] Last Admin: 05/13/24 10:02 Dose: 0.5 each Clopidogrel Bisulfate (Clopidogrel 75 Mg Tablet) 75 mg PO DAILY [facility] Last Admin: 05/12/24 08:08 Dose: 75 mg Collagenase (Collagenase Oint 30 Gm) 1 applic TOPICAL DAILY [facility] Last Admin: 05/13/24 10:10 Dose: 1 applic Diltiazem HCl (Diltiazem 30 Mg Tablet) 30 mg PO QID [facility] Last Admin: 05/10/24 09:31 Dose: 30 mg Docusate Sodium (Docusate Sodium 100 Mg Capsule) 100 mg PO BID [facility] Last Admin: 05/13/24 10:02 Dose: 100 mg Doxycycline Monohydrate (Doxycycline 100 Mg Tablet) 100 mg PO BID [facility]; Protocol Ferrous Sulfate (Ferrous Sulfate Ec 325 Mg Tablet) 325 mg PO BIDWM [facility] Last Admin: 05/13/24 09:58 Dose: 325 mg Finasteride (Finasteride 5 Mg Tablet) 5 mg PO BEDTIME [facility] Last Admin: 05/12/24 20:40 Dose: 5 mg Guaifenesin (Guaifenesin 600 Mg Tablet) 600 mg PO BID [facility] Last Admin: 05/13/24 10:02 Dose: 600 mg Norepinephrine Bitartrate (Levophed) 4 mg in 250 mls @ 0 mls/hr IV .Q0M PRN; Protocol PRN Reason: MAP less than 65 Last Titration: 05/13/24 08:40 Dose: 0 mcg/min, 0 mls/hr Vancomycin HCl 1,000 mg/ (Sodium Chloride) 250 mls @ 250 mls/hr IV Q48H [facility] Last Infusion: 05/11/24 18:52 Dose: Infused Dextrose (D10w) 125 mls @ 750 mls/hr IV PRN PRN PRN Reason: HYPOGLYCEMIA Last Infusion: 05/12/24 10:53 Dose: Infused Sodium Chloride (Sodium Chloride 0.9%) 1,000 mls @ 30 mls/hr IV .Q24H ONE Stop: 05/14/24 13:11 Lactobacillus Acidophilus (Lactobacillus 1 Tablet) 2 tab PO BID [facility] Last Admin: 05/13/24 10:03 Dose: 2 tab Lactulose (Lactulose Oral Liq 20 Gm/30 Ml Udc) 10 gm PO DAILY PRN PRN Reason: Constipation Morphine Sulfate (Morphine 4 Mg/Ml Sdv 1 Ml) 2 mg IVP Q4H PRN PRN Reason: SHORTNESS OF BREATH Last Admin: 05/12/24 03:42 Dose: 2 mg Ondansetron HCl (Ondansetron 2 Mg/Ml Sdv 2 Ml) 4 mg IVP Q6H PRN PRN Reason: NAUSEA AND VOMITING Pantoprazole Sodium (Pantoprazole Dr 40 Mg Tablet) 40 mg PO DAILY [facility] Last Admin: 05/13/24 10:02 Dose: 40 mg Pantoprazole Sodium (Pantoprazole 40 Mg Sdv) 40 mg IVP BID [facility] Prednisone (Prednisone 20 Mg Tablet) 40 mg PO DAILY [facility] Last Admin: 05/13/24 10:06 Dose: 40 mg Ranolazine (Ranolazine (12hr) 500 Mg Tablet) 500 mg PO BID [facility] Last Admin: 05/13/24 10:03 Dose: 500 mg Ropinirole HCl (Ropinirole 2 Mg Tablet) 1 mg PO QPM [facility] Last Admin: 05/12/24 17:13 Dose: 1 mg Senna (Sennosides 8.6 Mg Tablet) 17.2 mg PO BEDTIME [facility] Last Admin: 05/12/24 20:38 Dose: 17.2 mg Senna/Docusate Sodium (Sennosides-Docusate Tablet) 1 tab PO DAILY [facility] Last Admin: 05/13/24 10:01 Dose: 1 tab Sodium Chloride (Sodium Chloride 0.9% 100 Ml Bag) 50 ml IV PRN PRN PRN Reason: Blood transfusion prime and flush Stop: 05/14/24 13:02 Sucralfate (Sucralfate 1 Gm Tablet) 1 gm PO AC&BEDTIME [facility] Tamsulosin HCl (Tamsulosin 0.4 Mg Capsule) 0.4 mg PO DAILY [facility] Last Admin: 05/13/24 10:02 Dose: 0.4 mg PFSH Anesthesia Medical History COPD (chronic obstructive pulmonary disease) RLS (restless legs syndrome) On carbidopa and Requip for this Aortic stenosis Peripheral arterial disease HTN (hypertension), benign Atrial fibrillation Diastolic CHF CKD (chronic kidney disease) Lower extremity edema Hypoxia Chronic stable angina Community acquired pneumonia Cellulitis and abscess of left leg Tobacco abuse SHARON (obstructive sleep apnea) Prescribed CPAP auto-titrating 5-9cm but not using due to feeling like suffocating; on oxygen at night History of sleep study (01/2021) severe obstructive sleep apnea, optimal pressure setting 6cm, with recommendation for auto-titrating CPAP 5-9 cm Atherosclerosis of leg with intermittent claudication History of cardioversion 03/16/2019 BPH (benign prostatic hyperplasia) Hyperlipidemia CAD (coronary artery disease) Varicose veins of bilateral lower extremities with other complications Surgical History S/P coronary angiogram 04/29/2007, 11/20/2021 ([facility]) S/P carotid endarterectomy S/P AAA (abdominal aortic aneurysm) repair with [place] endograft S/P femoral-femoral bypass surgery S/P CABG (coronary artery bypass graft) 1988 X1, 2006 X2 Family History Brother Cancer CAD (coronary artery disease) Diabetes Mother Heart disease CAD (coronary artery disease) Diabetes Sister CAD (coronary artery disease) Denies family history of Clotting disorder Dementia Chronic kidney disease (CKD) Suicide Anesthesia complication Bleeding disorder Lung disease Stroke Social History Smoking and tobacco/nicotine status: current every day tobacco/nicotine user Alcohol intake: never Substance/Drug Use: never Lives independently: No Household members: spouse Marital status: Data Anesthesia 05/14/24 03:09 05/14/24 03:09 Short CBC 05/13/24 05/14/24 Range/Units 04:22 03:09 WBC 12.97 H 7.61 (3.29-11.43) 10^3/uL Hgb 7.70 L 8.20 L (11.27-16.99) g/dL Hct 24.9 L 26.0 L (37-53) % MCV 103.3 H 100.8 (82-101) fl Plt Count 261 170 D (157-399) 10^3/cmm Neut % (Auto) 85.8 87.6 % Neut # (Auto) 11.13 H 6.66 (1.8-7.7) 10^3/uL BMP 05/12/24 05/12/24 05/13/24 11:10 13:12 04:22 Sodium 135 L 135 L 139 Potassium 5.3 H 5.6 H 4.8 Chloride 99 99 100 Carbon Dioxide 23 23 24 BUN 131 H* 133 H* 158 H* Creatinine 3.8 H 3.7 H 3.7 H Glucose 125 H 93 97 Calcium 8.7 8.5 8.6 05/14/24 03:09 Sodium 139 Potassium 4.8 Chloride 102 Carbon Dioxide 25 BUN 146 H* Creatinine 3.5 H Glucose 98 Calcium 8.4 L Liver Function 05/12/24 Range/Units 13:12 Total Bilirubin 0.4 (0.15-1.2) mg/dL AST 18 (0-40) U/L ALT < 5 (0-41) U/L Alkaline Phosphatase 87 (40-130) U/L Albumin 3.2 L (3.5-5.2) g/dL Blood Bank 05/13/24 13:30 Blood Type O Positive Rho(D) Type Rh positive Antibody Screen Negative Microbiology 05/12/24 12:33 Gram Stain - Final Sputum - Expectorated Sputum Sputum Culture - Preliminary Yeast species 05/13/24 11:40 Occult Blood (FIT) - Final Stool Routine Collection Cardiac Studies: 2 Echocardiogram 05/09/24
--- NOTE | 2024-05-14 07:49 | PC.NURSE ---
to gi lab this am for procedure
[2024-05-14] MEDS: sodium chloride 0.9% 1,000 ML 30 ML IV (07:50)
--- NOTE | 2024-05-14 08:00 | PICC.NOTE ---
Dressing to left upper arm PICC changed using sterile technique. Upon assessment, it appears that a fletcher sized skin tear was made at some point, possibly due to removal of stat-lock. Old blood cleaned from site. Insertion site cleansed with CHG. Adaptic placed over skin tear and covered with 2x2 and opsite. PICC external length now noted at 3 cm. Upon insertion, 0 cm external length documented. Line secured with stat-lock. Insertion site covered with Biopatch and TSM. End caps changed with good blood return noted to each lumen. All lumens flush without difficulty. Surgilast applied to left upper arm. Report given to bedside nurse, BLANE.
--- NOTE | 2024-05-14 08:16 | PM.MISC ---
Miscellaneous Note Purpose of Documentation: Update on patient care Note: Upper endoscopy was done show evidence of small erosions at the level of the stomach as well as gastritis but no active bleeding noted, there was no bleeding or blood was seen in the duodenum. This findings may support a possible upper GI bleeding from the stomach. I would recommend that the patient stays off Eliquis at least for the next 4 weeks, we will plan to repeat an endoscopy at the time to ensure healing. If despite this findings there is persistent downtrending of the hemoglobin or any other symptoms concerning for GI bleed patient may require colonoscopy.
--- NOTE | 2024-05-14 08:27 | PC.NURSE ---
back from gi lab monitor vs at this time
--- NOTE | 2024-05-14 08:38 | ANE.PACU2 ---
Inpatient post-anesthesia follow up: Airway intact: Yes Vital signs: Temperature 97.8 F Pulse Rate 95 Respiratory Rate 30 Blood Pressure 109/75 Pulse Oximetry 94 Oxygen Delivery Me thod Nasal Cannula Oxygen Flow Rate 5 Fraction of Inspir ed Oxygen 30 Hydration adequate: Yes Nausea and vomiting: No Pain level: 1 Mental status: Baseline
[2024-05-14] MEDS: doxycycline 100 mg Tablet PO ×2 (09:07→18:08)
[2024-05-14] MEDS: ranolazine (12HR) 500 mg Tablet PO ×2 (09:07→18:08)
[2024-05-14] MEDS: bacitracin ointment Pkt 1 EACH TOPICAL (09:07)
[2024-05-14] MEDS: lactobacillus 1 Tablet 2 TAB PO ×2 (09:08→18:08)
[2024-05-14] MEDS: predniSONE 20 mg Tablet 40 MG PO (09:08)
[2024-05-14] MEDS: carbidopa-levodopa 25-100mg Tablet 0.5 EACH PO ×3 (09:08→20:29)
[2024-05-14] MEDS: tamsulosin 0.4 mg Capsule PO (09:08)
[2024-05-14] MEDS: allopurinol 100 mg Tablet PO (09:08)
[2024-05-14] MEDS: sennosides-docusate Tablet 1 TAB PO (09:08)
[2024-05-14] MEDS: sucralfate 1 gm Tablet PO ×4 (09:09→20:29)
[2024-05-14] MEDS: amiodarone 200 mg Tablet 400 MG PO ×2 (09:09→18:07)
[2024-05-14] MEDS: docusate sodium 100 mg Capsule PO ×2 (09:09→18:08)
[2024-05-14] MEDS: pantoprazole DR 40 mg Tablet PO (09:09)
[2024-05-14] MEDS: guaiFENesin 600 mg Tablet PO ×2 (09:10→18:07)
[2024-05-14] MEDS: clotrimazole-betamethasone cream 15gm 1 APPLIC TOPICAL (09:15)
[2024-05-14] MEDS: collagenase oint 30 gm 1 APPLIC TOPICAL (09:15)
--- NOTE | 2024-05-14 09:32 | PM.PN ---
Subjective Subjective: Patient had an upper endoscopy today. No evidence of active bleeding. He started having some hematuria, possibly catheter induced. His urine output seems to have picked up a little, since last night. The BUN is showing a downward trend Medications: Medication Review Details: Current Medications Acetaminophen (Acetaminophen 325 Mg Tablet) 650 mg PO Q6H PRN PRN Reason: MILD PAIN Acetylcysteine (Acetylcysteine 200 Mg/Ml Mdv 10 Ml) 200 mg INHALATION Q6H.RESP [facility] Last Admin: 05/14/24 07:46 Dose: Not Given Albuterol/Ipratropium (Ipratropium-Albuterol 3 Ml Neb) 3 ml INHALATION Q6H.RESP [facility] Last Admin: 05/14/24 07:46 Dose: Not Given Albuterol/Ipratropium (Ipratropium-Albuterol 3 Ml Neb) 3 ml INHALATION Q6H PRN PRN Reason: SHORTNESS OF BREATH Last Admin: 05/09/24 15:49 Dose: 3 ml Allopurinol (Allopurinol 100 Mg Tablet) 100 mg PO DAILY [facility] Last Admin: 05/14/24 09:08 Dose: 100 mg Amiodarone HCl (Amiodarone 200 Mg Tablet) 400 mg PO BID [facility] Last Admin: 05/14/24 09:09 Dose: 400 mg Apixaban (Apixaban 5 Mg Tablet) 2.5 mg PO BID@0900,2100 [facility] Last Admin: 05/10/24 09:45 Dose: Not Given Atorvastatin Calcium (Atorvastatin 40 Mg Tablet) 40 mg PO BEDTIME [facility] Last Admin: 05/13/24 20:11 Dose: 40 mg Bacitracin (Bacitracin Ointment Pkt) 1 each TOPICAL TID [facility]; Protocol Last Admin: 05/14/24 09:07 Dose: 1 each Betamethasone/Clotrimazole (Clotrimazole-Betamethasone Cream 15gm) 1 applic TOPICAL TID [facility] Last Admin: 05/14/24 09:15 Dose: 1 applic Bumetanide (Bumetanide 0.25 Mg/Ml Sdv 10 Ml) 2 mg IVP Q8H [facility] Last Admin: 05/12/24 03:41 Dose: 2 mg Carbidopa/Levodopa (Carbidopa-Levodopa 25-100mg Tablet) 0.5 each PO TID [facility] Last Admin: 05/14/24 09:08 Dose: 0.5 each Clopidogrel Bisulfate (Clopidogrel 75 Mg Tablet) 75 mg PO DAILY [facility] Last Admin: 05/12/24 08:08 Dose: 75 mg Collagenase (Collagenase Oint 30 Gm) 1 applic TOPICAL DAILY [facility] Last Admin: 05/14/24 09:15 Dose: 1 applic Diltiazem HCl (Diltiazem 30 Mg Tablet) 30 mg PO QID [facility] Last Admin: 05/10/24 09:31 Dose: 30 mg Docusate Sodium (Docusate Sodium 100 Mg Capsule) 100 mg PO BID [facility] Last Admin: 05/14/24 09:09 Dose: 100 mg Doxycycline Monohydrate (Doxycycline 100 Mg Tablet) 100 mg PO BID [facility]; Protocol Last Admin: 05/14/24 09:07 Dose: 100 mg Ferrous Sulfate (Ferrous Sulfate Ec 325 Mg Tablet) 325 mg PO BIDWM [facility] Last Admin: 05/13/24 09:58 Dose: 325 mg Finasteride (Finasteride 5 Mg Tablet) 5 mg PO BEDTIME [facility] Last Admin: 05/13/24 20:11 Dose: 5 mg Guaifenesin (Guaifenesin 600 Mg Tablet) 600 mg PO BID [facility] Last Admin: 05/14/24 09:10 Dose: 600 mg Norepinephrine Bitartrate (Levophed) 4 mg in 250 mls @ 0 mls/hr IV .Q0M PRN; Protocol PRN Reason: MAP less than 65 Last Titration: 05/13/24 08:40 Dose: 0 mcg/min, 0 mls/hr Vancomycin HCl 1,000 mg/ (Sodium Chloride) 250 mls @ 250 mls/hr IV Q48H [facility] Last Infusion: 05/13/24 19:39 Dose: Infused Dextrose (D10w) 125 mls @ 750 mls/hr IV PRN PRN PRN Reason: HYPOGLYCEMIA Last Infusion: 05/12/24 10:53 Dose: Infused Sodium Chloride (Sodium Chloride 0.9%) 1,000 mls @ 30 mls/hr IV .Q24H ONE Stop: 05/14/24 13:11 Last Admin: 05/13/24 19:24 Dose: Not Given Sodium Chloride (Sodium Chloride 0.9%) 1,000 mls @ 30 mls/hr IV .Q24H [facility] Last Titration: 05/14/24 08:15 Dose: 0 mls/hr Lactobacillus Acidophilus (Lactobacillus 1 Tablet) 2 tab PO BID [facility] Last Admin: 05/14/24 09:08 Dose: 2 tab Lactulose (Lactulose Oral Liq 20 Gm/30 Ml Udc) 10 gm PO DAILY PRN PRN Reason: Constipation Morphine Sulfate (Morphine 4 Mg/Ml Sdv 1 Ml) 2 mg IVP Q4H PRN PRN Reason: SHORTNESS OF BREATH Last Admin: 05/12/24 03:42 Dose: 2 mg Ondansetron HCl (Ondansetron 2 Mg/Ml Sdv 2 Ml) 4 mg IVP Q6H PRN PRN Reason: NAUSEA AND VOMITING Pantoprazole Sodium (Pantoprazole Dr 40 Mg Tablet) 40 mg PO DAILY [facility] Last Admin: 05/14/24 09:09 Dose: 40 mg Pantoprazole Sodium (Pantoprazole 40 Mg Sdv) 40 mg IVP BID [facility] Last Admin: 05/14/24 09:12 Dose: Not Given Prednisone (Prednisone 20 Mg Tablet) 40 mg PO DAILY [facility] Last Admin: 05/14/24 09:08 Dose: 40 mg Ranolazine (Ranolazine (12hr) 500 Mg Tablet) 500 mg PO BID [facility] Last Admin: 05/14/24 09:07 Dose: 500 mg Ropinirole HCl (Ropinirole 2 Mg Tablet) 1 mg PO QPM [facility] Last Admin: 05/12/24 17:13 Dose: 1 mg Senna (Sennosides 8.6 Mg Tablet) 17.2 mg PO BEDTIME [facility] Last Admin: 05/13/24 20:11 Dose: 17.2 mg Senna/Docusate Sodium (Sennosides-Docusate Tablet) 1 tab PO DAILY [facility] Last Admin: 05/14/24 09:08 Dose: 1 tab Sodium Chloride (Sodium Chloride 0.9% 100 Ml Bag) 50 ml IV PRN PRN PRN Reason: Blood transfusion prime and flush Stop: 05/14/24 13:02 Last Admin: 05/13/24 15:32 Dose: 50 ml Sucralfate (Sucralfate 1 Gm Tablet) 1 gm PO AC&BEDTIME [facility] Last Admin: 05/14/24 09:09 Dose: 1 gm Tamsulosin HCl (Tamsulosin 0.4 Mg Capsule) 0.4 mg PO DAILY [facility] Last Admin: 05/14/24 09:08 Dose: 0.4 mg Vitals/I&O/Wt Last Vital Signs Temp 97.8 F 05/14/24 04:00 Pulse 95 05/14/24 06:00 Resp 30 H 05/14/24 06:00 BP 109/75 05/14/24 06:00 Pulse Ox 94 05/14/24 06:00 O2 Del Method Nasal Cannula 05/14/24 06:00 O2 Flow Rate 5 05/14/24 06:00 FiO2 30 05/14/24 02:00 05/13/24 05/14/24 05/14/24 22:59 06:59 14:59 Intake Total 350 / 600.167 12.5 / 12.5 Output Total 660 / 1044 925 / 1969 Balance -310 / -443.833 -925 / -1368.833 12.5 / 12.5 Weight last 48 hrs Weight 205 lb 11.2 oz Weight 207 lb 4.8 oz Physical Exam Narrative: GENERAL: The patient is alert and oriented x 3. Not in any acute distress. HEENT: No significant pallor, icterus or lymphadenopathy.Oral cavity: There are no mucous membrane lesions. NECK: Trachea appears to be central. No masses noted. No JVD or thyromegaly appreciated. RESPIRATORY: Scattered diffuse expiratory wheezing and coarse crackles bilaterally BREASTS: Deferred. HEART: The heart sounds are normal. No S3 or S4. Short systolic murmur in the left renal border. No pericardial rub ABDOMEN: No vessel pulsations or distention. No tenderness. No organomegaly appreciated. Bowel sounds are normally heard. : Deferred. RECTAL: Deferred. LYMPHATIC: No lymphadenopathy noted in the neck. EXTREMITIES: 1+ edema both lower extremities. Some weeping ulcers on the anterior aspect of the right leg, clinically improving MUSCULOSKELETAL: No acute joint deformities or swelling SKIN: There are no significant rashes or ecchymosis. Features of chronic venous stasis and stasis dermatitis especially on the left leg. Small superficial ulcers in the right leg. NEUROPSYCHIATRIC: The patient is alert and oriented x3. Not in any distress. Urinary Catheter Management: Squires: Cath Placed During This Visit: yes Reason for Continuing Indwelling Catheter: Accurate Measurement of Urinary Output in Critically Ill Patients Urinary Catheter Date of Insertion: 05/09/24 Urinary Catheter Time of Insertion: 14:29 Data 05/14/24 03:09 05/14/24 03:09 Other Labs: Laboratory Last Values WBC 7.61 10^3/uL (3.29-11.43) 05/14/24 03:09 RBC 2.58 10^6/uL (3.85-5.65) L 05/14/24 03:09 Hgb 8.20 g/dL (11.27-16.99) L 05/14/24 03:09 Hct 26.0 % (37-53) L 05/14/24 03:09 MCV 100.8 fl (82-101) 05/14/24 03:09 MCH 31.8 pg (27-33) 05/14/24 03:09 MCHC 31.5 g/dL (30-55) 05/14/24 03:09 RDW 21.5 % (12.1-15.1) H 05/14/24 03:09 Plt Count 170 10^3/cmm (157-399) D 05/14/24 03:09 MPV 9.0 fL (7.4-10.4) 05/14/24 03:09 Neut % (Auto) 87.6 % 05/14/24 03:09 Lymph % (Auto) 3.5 % 05/14/24 03:09 [place] % (Auto) 8.0 % 05/14/24 03:09 Eos % (Auto) 0.0 % 05/14/24 03:09 Baso % (Auto) 0.0 % 05/14/24 03:09 Neut # (Auto) 6.66 10^3/uL (1.8-7.7) 05/14/24 03:09 Lymph # (Auto) 0.3 10^3/uL (0.8-4.8) L 05/14/24 03:09 [place] # (Auto) 0.6 10^3/uL (0.2-0.9) 05/14/24 03:09 Eos # (Auto) 0.0 10^3/uL (0.0-0.8) 05/14/24 03:09 Baso # (Auto) 0.0 10^3/uL (0.0-0.1) 05/14/24 03:09 Nucleated RBC % (auto) 0 % 05/14/24 03:09 Nucleated RBCs # 0.0 /100WBC 05/14/24 03:09 PT 22.80 SECONDS (12.1-14.9) H 05/09/24 15:45 INR 1.93 (0.8-1.2) H 05/09/24 15:45 APTT 47.3 SECONDS (23.9-36.7) H 05/09/24 15:45 Specimen Type Arterial 05/10/24 04:13 Sample Site Radial, right 05/10/24 04:13 ABG pH 7.45 (7.35-7.45) 05/10/24 04:13 ABG pCO2 33.6 mmHg (35-45) L 05/10/24 04:13 ABG pO2 64.4 mmHg (80.0-100.0) L 05/10/24 04:13 ABG PO2/FiO2 Ratio 0 05/10/24 04:13 ABG HCO3 23.2 mmol/L (22-26) 05/10/24 04:13 ABG O2 Saturation 99.5 05/09/24 09:50 ABG Base Excess -0.6 mmol/L (-2.0-2.0) 05/10/24 04:13 Crispin Test Pos 05/10/24 04:13 A-a O2 Gradient 13.1 mmHg (5-10) H 05/09/24 09:50 Hematocrit 25.3 % (42-52) L 05/10/24 04:13 Hgb O2 Saturation 95.5 % (95-100) 05/09/24 09:50 Carboxyhemoglobin 3.7 %THgb (0.4-20.1) 05/09/24 09:50 Methemoglobin 0.4 % (0.4-1.5) 05/09/24 09:50 Total Hemoglobin 7.2 g/dL (14-18) L 05/09/24 09:50 Sodium 132.0 mmol/L (131-143) 05/09/24 09:50 Potassium 4.7 mmol/L (3.5-5.0) 05/09/24 09:50 Glucose 97.0 mg/dL (70-115) 05/09/24 09:50 Ionized Calcium 1.2 mmol/L (1.1-1.4) 05/09/24 09:50 O2 Delivery Device Bipap 05/10/24 04:13 O2 Liters/Min 4.0 % 05/09/24 09:50 FiO2 30.0 % 05/10/24 04:13 Tidal Volume 0.40 05/10/24 04:13 Software Security Architect ID Flo 05/10/24 04:13 Sodium 139 mmol/L (136-145) 05/14/24 03:09 Potassium 4.8 mmol/L (3.5-5.1) 05/14/24 03:09 Chloride 102 mmol/L (98-107) 05/14/24 03:09 Carbon Dioxide 25 mmol/L (22-29) 05/14/24 03:09 Anion Gap 16.8 (5-19) 05/14/24 03:09 BUN 146 mg/dL (8-23) H* 05/14/24 03:09 Creatinine 3.5 mg/dL (0.7-1.2) H 05/14/24 03:09 GFR Calculation Not Reportable 05/14/24 03:09 Glucose 98 mg/dL (65-115) 05/14/24 03:09 POC Glucose 136 mg/dL (70-110) H 05/12/24 11:27 Calculated Osmolality 336 mOsm/kg (285-295) H 05/14/24 03:09 Lactic Acid 1.6 mmol/L (0.5-2.2) 05/09/24 09:58 Uric Acid 11.9 mg/dL (3.4-7.0) H 05/09/24 09:58 Calcium 8.4 mg/dL (8.5-10.5) L 05/14/24 03:09 Phosphorus 6.8 mg/dL (2.5-4.5) H 05/10/24 04:46 Magnesium 3.0 mg/dL (1.7-2.3) H 05/10/24 04:46 Iron 55 ug/dL (59-158) L 05/09/24 09:58 TIBC 315 mcg/dl 05/09/24 09:58 % Saturation 17.4 % (20-50) L 05/09/24 09:58 Unsat Iron Binding 260 ug/dL (112-347) 05/09/24 09:58 Total Bilirubin 0.4 mg/dL (0.15-1.2) 05/12/24 13:12 AST 18 U/L (0-40) 05/12/24 13:12 ALT < 5 U/L (0-41) 05/12/24 13:12 Alkaline Phosphatase 87 U/L (40-130) 05/12/24 13:12 Troponin T Baseline 74 ng/L (0-15) H 05/09/24 09:58 Troponin T 120 Minute 72.15 ng/L (0-15) H 05/09/24 13:05 Delta Troponin T -1.85 ABS# (0-10) L 05/09/24 13:05 Troponin T Hi Sens 6Hr 61.14 ng/L (0-15) H 05/09/24 15:45 Troponin T Hi Sens 6Hr Delta -12.86 ng/L (0-12) L 05/09/24 15:45 C-Reactive Protein 26.9 mg/L (0.0-4.9) H 05/09/24 09:58 NT-Pro-B Natriuret Pep 2199 pg/mL (0-450) H 05/09/24 09:58 Total Protein 5.5 g/dL (6.6-8.7) L 05/12/24 13:12 Albumin 3.2 g/dL (3.5-5.2) L 05/12/24 13:12 Globulin 2.3 g/dL (1.3-4.6) 05/12/24 13:12 Urine Color Yellow (Yellow) 05/09/24 14:27 Urine Appearance Clear (CLEAR) 05/09/24 14:27 Urine pH 5 (5-7) 05/09/24 14:27 Ur Specific [place] 1.020 (1.005-1.030) 05/09/24 14:27 Urine Protein Trace (Negative) 05/09/24 14:27 Urine Glucose (UA) Norm (Normal) 05/09/24 14:27 Urine Ketones 1+ (Negative) H 05/09/24 14:27 Urine Blood Neg (Negative) 05/09/24 14:27 Urine Nitrate Negative (Negative) 05/09/24 14:27 Urine Bilirubin Neg (Negative) 05/09/24 14:27 Urine Urobilinogen Neg mg/dL (Negative) 05/09/24 14:27 Ur Leukocyte Esterase Negative (Negative) 05/09/24 14:27 Urine RBC Rare /hpf (0-2) 05/09/24 14:27 Urine WBC 0-4 /hpf (0-5) H 05/09/24 14:27 Ur Squamous Epith Cells 0-4 /hpf (0-5) H 05/09/24 14:27 Ur Transition Epith Cell 0-4 /hpf 05/09/24 14:27 Amorphous Sediment Not Reportable 05/09/24 14:27 Urine Bacteria 1+ /hpf (NONE) H 05/09/24 14:27 Hyaline Casts 15-25 /lpf H 05/09/24 14:27 Urine Mucus Trace /hpf 05/09/24 14:27 Ur Random Microalbumin 49 ug/dL (0-20) H 05/12/24 13:17 Ur Random Sodium 28 mmol/L 05/12/24 13:17 Ur Random Chloride 34 mmol/L 05/12/24 13:17 Urine Creatinine 60 mg/dL (39-259) 05/12/24 13:17 Microalb/Creat Ratio 817 mg/dL (0-20) H 05/12/24 13:17 Adenovirus (PCR) Not detected (NOT DETECT) 05/09/24 10:00 C. pneumoniae DNA (PCR) Not detected (NOT DETECT) 05/09/24 10:00 Coronavirus 229E (PCR) Not detected (NOT DETECT) 05/09/24 10:00 Human Metapneumovir PCR Not detected (NOT DETECT) 05/09/24 10:00 Influenza A (H1) PCR Not detected (NOT DETECT) 05/09/24 10:00 Influ A (H1/09) PCR Not detected (NOT DETECT) 05/09/24 10:00 Influenza A (H3) PCR Not detected (NOT DETECT) 05/09/24 10:00 Influenza Type A (PCR) Not detected (NOT DETECT) 05/09/24 10:00 Influenza Type B (PCR) Not detected (NOT DETECT) 05/09/24 10:00 M. pneumoniae (PCR) Not detected (NOT DETECT) 05/09/24 10:00 Parainfluenza 1 (PCR) Not detected (NOT DETECT) 05/09/24 10:00 Parainfluenza 2 (PCR) Not detected (NOT DETECT) 05/09/24 10:00 Parainfluenza 3 (PCR) Not detected (NOT DETECT) 05/09/24 10:00 Parainfluenza 4 (PCR) Not detected (NOT DETECT) 05/09/24 10:00 RSV Type A (PCR) Not detected (NOT DETECT) 05/09/24 10:00 RSV Type B (PCR) Not detected (NOT DETECT) 05/09/24 10:00 Entero/Rhino (PCR) Not detected (NOT DETECT) 05/09/24 10:00 SARS-CoV-2 (PCR) Not detected (NOT DETECT) 05/09/24 10:00 Blood Type O Positive 05/13/24 13:30 Rho(D) Type Rh positive 05/13/24 13:30 Antibody Screen Negative 05/13/24 13:30 Crossmatch See Detail 05/13/24 13:30 Micro: Microbiology 05/12/24 12:33 Gram Stain - Final Sputum - Expectorated Sputum Sputum Culture - Preliminary Yeast species 05/13/24 11:40 Occult Blood (FIT) - Final Stool Routine Collection A&P Assessment and plan (1) Atherosclerotic heart disease of [place] coronary artery with unstable angina pectoris: Patient seems to have significant improvement of the chest pain. At this point, we may continue on the current medications. If he continues to remain stable, he may not require any further investigations at this point. Qualifiers: [place] vs. transplanted heart: [place] heart Qualified Code(s): I25.110 - Atherosclerotic heart disease of [place] coronary artery with unstable angina pectoris (2) Acute kidney injury superimposed on chronic kidney disease: Because of the improving kidney function dialysis is on no hold (3) Hypotension: The blood pressure seems to be stable, may continue on the current management. Qualifiers: Hypotension type: other hypotension type Qualified Code(s): I95.89 - Other hypotension (4) Atrial fibrillation: Patient is in atrial fibrillation with controlled ventricular response rate. May continue on the current treatment. Qualifiers: Atrial fibrillation type: persistent (not longstanding) Qualified Code(s): I48.19 - Other persistent atrial fibrillation (5) Acute on chronic diastolic heart failure: Heart failure is fairly compensated. Will continue on the current management. (6) Hyperlipidemia: May continue on the current medication Qualifiers: Hyperlipidemia type: unspecified Qualified Code(s): E78.5 - Hyperlipidemia, unspecified (7) Peripheral arterial disease: Clinically seems to be stable. May continue on the current treatment. (8) Anemia: The hemoglobin seems to be steady. The etiology is not clear. He may need further workup. Qualifiers: Anemia type: unspecified type Qualified Code(s): D64.9 - Anemia, unspecified (9) Aortic stenosis: The patient seems to have a severe low gradient aortic valve stenosis. Most likely this is a technical error. We may have to repeat the aortic in the LV outflow tract Doppler studies to reevaluate the stenosis. Qualifiers: Cardiac valve disease etiology: nonrheumatic Qualified Code(s): I35.0 - Nonrheumatic aortic (valve) stenosis Plan Continue on the current management. Attestations Medical Necessity Statement*: Deferred to the primary Coding Level of Care Code 41442 Diagnoses Atherosclerosis of [place] coronary artery of [place] heart with unstable angina pectoris I25.110 [place] vs. transplanted heart: [place] heart Acute kidney injury superimposed on chronic kidney disease N17.9; N18.9 Other specified hypotension I95.89 Hypotension type: other hypotension type Persistent atrial fibrillation I48.19 Atrial fibrillation type: persistent (not longstanding) Acute on chronic diastolic heart failure I50.33 Hyperlipidemia, unspecified hyperlipidemia type E78.5 Hyperlipidemia type: unspecified Peripheral arterial disease I73.9 Anemia D64.9 Anemia type: unspecified type Nonrheumatic aortic valve stenosis I35.0 Cardiac valve disease etiology: nonrheumatic
--- NOTE | 2024-05-14 10:59 | P.PN_ITS ---
Subjective 2 Subjective: Patient this morning came back from EGD Gastritis noted Continue Protonix Hemoglobin stable Received 2 units total PRBC during this hospitalization 1 on admission and second 1 was given yesterday 05/13 Creatinine improved he has been off Lasix drip for 24 hours BUN improved as well Good urine output Today we noticed hematuria I have asked ICU nurse to manually irrigate with noticed mild clots there is no obstruction in urine flow Traumatic versus nephritic? Patient is saturating 95% on 5 L we can wean his oxygen down to 2 L Vitals/I&O/Wt Last Vital Signs Temp 98.2 F 05/14/24 09:30 Pulse 106 H 05/14/24 10:00 Resp 23 H 05/14/24 10:00 BP 115/73 05/14/24 10:00 Pulse Ox 92 05/14/24 10:00 O2 Del Method Nasal Cannula 05/14/24 06:00 O2 Flow Rate 5 05/14/24 06:00 FiO2 30 05/14/24 02:00 05/13/24 05/14/24 05/14/24 22:59 06:59 14:59 Intake Total 350 / 600.167 12.5 / 12.5 Output Total 660 / 1044 925 / 1969 Balance -310 / -443.833 -925 / -1368.833 12.5 / 12.5 Weight last 48 hrs Weight 93.304 kg Weight 94.03 kg Physical Exam 2 Narrative: Pleasant cooperative Patient has extreme dry mouth poor historian No significant asterixis No sign of confusion Pleasant calm Hemodynamic stable Hematuria in the urine bag noted Abdomen soft Awake and alert Currently on 5 L nasal cannula Urinary Catheter Management: Squires: Cath Placed During This Visit: yes Reason for Continuing Indwelling Catheter: Accurate Measurement of Urinary Output in Critically Ill Patients Urinary Catheter Date of Insertion: 05/09/24 Urinary Catheter Time of Insertion: 14:29 Data 05/14/24 03:09 05/14/24 03:09 Micro: Microbiology 05/12/24 12:33 Gram Stain - Final Sputum - Expectorated Sputum Sputum Culture - Preliminary Yeast species 05/13/24 11:40 Occult Blood (FIT) - Final Stool Routine Collection A&P Assessment and plan (1) Diastolic CHF: Qualifiers: Heart failure chronicity: acute on chronic Qualified Code(s): I50.33 - Acute on chronic diastolic (congestive) heart failure (2) Acute on chronic diastolic heart failure: (3) Aortic stenosis: Qualifiers: Cardiac valve disease etiology: nonrheumatic Qualified Code(s): I35.0 - Nonrheumatic aortic (valve) stenosis (4) Peripheral arterial disease: (5) Atrial fibrillation: Qualifiers: Atrial fibrillation type: persistent (not longstanding) Qualified Code(s): I48.19 - Other persistent atrial fibrillation (6) Chronic anticoagulation: (7) Constipation: (8) GI bleeding: (9) Acute kidney injury superimposed on chronic kidney disease: (10) BPH (benign prostatic hyperplasia): Qualifiers: Lower urinary tract symptom presence: symptoms present Lower urinary tract symptom detail: urinary hesitancy Qualified Code(s): N40.1 - Benign prostatic hyperplasia with lower urinary tract symptoms; R39.11 - Hesitancy of micturition (11) Acute blood loss anemia: (12) Cellulitis: (13) RLS (restless legs syndrome): (14) On home oxygen therapy: (15) COPD with acute exacerbation: (16) SHARON (obstructive sleep apnea): (17) Lower extremity edema: Plan Acute diastolic CHF exacerbation Hypokalemia improving Patient has been off Lasix drip for 24 hours Creatinine and BUN improving No active chest pain Acute on chronic kidney disease Creatinine improving off Lasix drip Will follow with nephrology recommendations regarding diuretic continuation BUN improved as well No plan for dialysis as of yet Acute GI blood loss anemia Status post EGD 05/14 which showed gastric erosion/gastritis Patient also has hematuria Hematuria started 05/13 Most likely active source of anemia seems to be GI blood loss Status post 2 units PRBC First unit was given on admission, second unit given 05/13 A-fib without RVR Off Eliquis and Plavix Secondary to hematuria and GI blood loss Low extremity edema related to diastolic CHF No signs of abscess, CT leg was done No significant worsening As per the family his legs are getting better Applying topical bacitracin, Santyl with daily dressing change Right common iliac stenosis, 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 planned as per cardiology As per the family 2017 at [facility] attempt was made however they were not able to revascularize Patient has been on Plavix and atorvastatin Plavix on hold Constipation: Continue bowel regimen Family had concern regarding his stuttering, I do not see any focal deficit, his mouth is extremely dry he was n.p.o., will keep blood pressure low to get CT head without contrast if needed Intermittent chest pain Patient takes nitroglycerin which improved his pain He gets antianginal medications Cardiology recommended medical management, previous angiogram showed patent stents atherosclerotic disease which was not amenable to intervention Continue ICU management Full code Start renal nondialysis diet I did call [facility] yesterday they did not accept transfer because there was no acute indication that call was made on request of the family I spoke with Dr. Perez hospitalist Full code Resting tremors patient takes carbidopa levodopa Attestations 2 Medical Necessity Statement*: Continue medical management Diagnoses Acute on chronic diastolic congestive heart failure I50.33 Heart failure chronicity: acute on chronic Acute on chronic diastolic heart failure I50.33 Nonrheumatic aortic valve stenosis I35.0 Cardiac valve disease etiology: nonrheumatic Peripheral arterial disease I73.9 Persistent atrial fibrillation I48.19 Atrial fibrillation type: persistent (not longstanding) Chronic anticoagulation Z79.01 Constipation K59.00 GI bleeding K92.2 Acute kidney injury superimposed on chronic kidney disease N17.9; N18.9 Benign prostatic hyperplasia with urinary hesitancy N40.1; R39.11 Lower urinary tract symptom presence: symptoms present Lower urinary tract symptom detail: urinary hesitancy Acute blood loss anemia D62 Cellulitis L03.90 RLS (restless legs syndrome) G25.81 On home oxygen therapy Z99.81 COPD with acute exacerbation J44.1 SHARON (obstructive sleep apnea) G47.33 Lower extremity edema R60.0
--- NOTE | 2024-05-14 12:05 | P.PN_ITS ---
Subjective 2 Subjective: on 5L Fio2 Medications: Reviewed: Yes Vitals/I&O/Wt Last Vital Signs Temp 98.2 F 05/14/24 09:30 Pulse 106 H 05/14/24 10:00 Resp 23 H 05/14/24 10:00 BP 115/73 05/14/24 10:00 Pulse Ox 92 05/14/24 10:00 O2 Del Method Nasal Cannula 05/14/24 06:00 O2 Flow Rate 5 05/14/24 06:00 FiO2 30 05/14/24 02:00 05/13/24 05/14/24 05/14/24 22:59 06:59 14:59 Intake Total 350 / 600.167 12.5 / 12.5 Output Total 660 / 1044 925 / 1969 Balance -310 / -443.833 -925 / -1368.833 12.5 12.5 Weight last 48 hrs Weight 93.304 kg Weight 94.03 kg Physical Exam 2 Narrative: Patient is awake alert no distress HEENT S1-S2 regular rate and rhythm per report Lungs clear per report 1+ pedal edema Urinary Catheter Management: Squires: Cath Placed During This Visit: yes Reason for Continuing Indwelling Catheter: Accurate Measurement of Urinary Output in Critically Ill Patients Urinary Catheter Date of Insertion: 05/09/24 Urinary Catheter Time of Insertion: 14:29 Data 05/14/24 03:09 05/14/24 03:09 Micro: Microbiology 05/12/24 12:33 Gram Stain - Final Sputum - Expectorated Sputum Sputum Culture - Preliminary Yeast species 05/13/24 11:40 Occult Blood (FIT) - Final Stool Routine Collection A&P Assessment and plan (1) Acute kidney injury superimposed on chronic kidney disease: 1. Acute on chronic kidney disease: Patient's baseline creatinine is in the 2 range and now has an GODFREY and volume overload in the setting of possible CHF. Patient was on Lasix drip with reasonable diuresis so far, currently on 5 L O2 -Uremia likely combination of aggressive diuresis and steroid use -Will hold Lasix drip temporarily, will give IV albumin, and IV lasix 60 mg monitor urine output, - Renal fxn slightly better today -If unable to diurese and renal function fails to improve-will consider temporary dialysis -Discussed with patient's family at bedside 2. Severe uremia, asymptomatic, mental status clear, monitor 3. Anemia: Hemoglobin 8.2 transfuse if hemoglobin drops below 7 4. Acute on chronic respiratory failure: On currently 5 L, multifactorial in the setting of CHF and pneumonia 5. History of hypertension 6. History of coronary artery disease Patient evaluated using audiovisual cart. Time spent 40 minutes. Attestations 2 Medical Necessity Statement*: per medicine Coding Level of Care Code Acute Code for Chg Fwd Diagnoses Acute kidney injury superimposed on chronic kidney disease N17.9; N18.9
[2024-05-14] MEDS: FUROsemide 10 mg/mL SDV 10mL 60 MG IVP ×2 (12:30→17:07)
[2024-05-14] MEDS: albumin 25 G/100 ML BAG 60 G IV (12:31)
--- NOTE | 2024-05-14 14:29 | PC.NURSE ---
irrigated winslow again less small clots noted u/o after lasix and albumin 100cc
[2024-05-14 16:22] LABS: Anion Gap 18.7 (5-19); Calcium 8.4 mg/dL (8.5-10.5); Carbon Dioxide 24 mmol/L (22-29); Chloride 100 mmol/L (98-107); Glucose 126 mg/dL (65-115); Potassium 4.7 mmol/L (3.5-5.1); Sodium 138 mmol/L (136-145)
[2024-05-14 16:42] LABS: Creatinine Clr Calc Pharmacy 16.9655; Osmolality Calculated 336 mOsm/kg (285-295)
[2024-05-14 16:44] LABS: Blood Urea Nitrogen 148 mg/dL (8-23)
[2024-05-14] MEDS: pantoprazole 40 mg SDV IVP (18:08)
[2024-05-14] MEDS: morphine 4 mg/mL SDV 1 mL 2 MG IVP (19:24)
--- NOTE | 2024-05-14 19:55 | PM.MISC ---
Miscellaneous Note Purpose of Documentation: Update on patient care Note: I have been asked to see Mr. Kwan for a nontunneled dialysis catheter placement. Patient has been noted to be uremic with elevated BUN and and slightly elevated creatinine. Nephrology considers patient will benefit from dialysis. Patient and family members were very reluctant to proceed with tunneled dialysis catheter as patient has significant heart disease and they are concerned that he will not tolerate dialysis. I have explained to the patient and family that their concerns are legitimate but we can offer to do the procedure hoping for the best outcome and taking consideration his limitations, I also Splane to the family and the patient that we need to have an understanding that his physiology and ability to recover and sustain trauma from surgery is very low due to multiple medical comorbidities and age, I explained to them that in the case of a cardiac event during the procedure a part of the procedure there will be very little opportunity for life-saving interventions or a meaningful recovery, I explained to the patient and family that I think that even with cardiac surgery available the possibility of survival in the cardiac event is going to be low. They show understanding they have decided to proceed with the dialysis catheter placement in our institution. I discussed all the risk and benefits with the patient including the risk of bleeding, infection, catheter nonfunction, cannulation of the femoral artery or carotid artery, injury to surrounding structures, retroperitoneal hematoma, pneumothorax, injury to the heart or major vessels. I have explained to the patient and family members that I will decide the best location for the catheter in the operating room once I do an ultrasound interrogation of bilateral groins and also bilateral jugular veins. We also Decided to do the procedure in the operating room as opposed to at the bedside as patient is unable to lay flat without sedation and family members are very hesitant to proceed with any kind of intervention without significant monitoring and anesthesia due to his cardiac condition.
[2024-05-14] MEDS: finasteride 5 mg Tablet PO (20:29)
[2024-05-14] MEDS: atorvastatin 40 mg Tablet PO (20:29)
[2024-05-15] VITALS (74 sets, daily range): BP systolic 76–142; BP diastolic 51–99; PULSE 72–107; RESP 11–28; TEMP 36.2–36.7; O2SAT 73–100
[2024-05-15] MEDS: ipratropium-albuterol 3 mL Neb INHALATION ×4 (02:03→20:42)
[2024-05-15] MEDS: acetylcysteine 200 mg/mL MDV 10 mL INHALATION ×4 (02:03→20:42)
[2024-05-15 04:07] LABS: Basophils % 0.1 %; Hematocrit 26.7 % (37-53); Lymphocytes # 0.3 10^3/uL (0.8-4.8); Lymphocytes % 3.7 %; Mean Corpuscular HGB Conc 31.5 g/dL (30-55); Mean Corpuscular Hemoglobin 31.8 pg (27-33); Mean Corpuscular Volume 101.1 fl (82-101); Mean Platelet Volume 9.6 fL (7.4-10.4); Monocytes # 0.8 10^3/uL (0.2-0.9); Monocytes % 9.5 %; Neutrophils # 7.49 10^3/uL (1.8-7.7); Nucleated Red Blood Cells % 0 %; Platelet Count 178 10^3/cmm (157-399); Red Blood Count 2.64 10^6/uL (3.85-5.65); Red Cell Distribution Width 21.6 % (12.1-15.1); White Blood Count 8.71 10^3/uL (3.29-11.43)
[2024-05-15 04:37] LABS: Anion Gap 17.6 (5-19); Calcium 8.4 mg/dL (8.5-10.5); Carbon Dioxide 25 mmol/L (22-29); Chloride 104 mmol/L (98-107); Creatinine Clr Calc Pharmacy 17.4796; Glucose 104 mg/dL (65-115); Potassium 4.6 mmol/L (3.5-5.1); Sodium 142 mmol/L (136-145)
[2024-05-15 04:43] LABS: Blood Urea Nitrogen 149 mg/dL (8-23); Osmolality Calculated 343 mOsm/kg (285-295)
--- NOTE | 2024-05-15 07:41 | P.HP_ITS ---
Same Day Surgery H&P Indication for Procedure/HPI DATE OF PROCEDURE: May 15, 2024 CHIEF COMPLAINT/INDICATIONFOR SURGICAL PROCEDURE: need for dialysis PREOP DIAGNOSIS: upper GI Bleeding PLANNED PROCEDURE: Operation Date: 05/14/24 08:00 Proposed Procedures p EGD(Not Applicable) - Qasim Diana MD Operation Date: 05/15/24 08:10 Proposed Procedures p Dialysis Catheter Insertion - Temporary Dialysis Catheter under sedation(Not Applicable) - Qasim Diana MD Medications/Allergies* Home Medications Medication Instructions Recorded Confirmed Type atorvastatin 40 mg tablet 40 mg PO QPM 04/16/20 05/09/24 History diltiazem HCl 180 mg 180 mg PO QAM 04/16/20 05/09/24 History capsule,extended release 24 hr (Cartia XT) finasteride 5 mg tablet 5 mg PO BEDTIME 04/16/20 05/09/24 History multivitamin 1 tab PO DAILY 04/16/20 05/09/24 History omega-3 fatty acids 500 mg capsule 500 mg PO DAILY 09/04/22 05/09/24 History ropinirole 2 mg tablet 1 mg PO QPM 09/08/23 05/09/24 History clopidogrel 75 mg tablet 75 mg PO DAILY 04/18/24 05/09/24 History tamsulosin 0.4 mg capsule 0.4 mg PO DAILY 04/18/24 05/09/24 History Magnalife See Rx Instructions .Route .COMPLEX 05/09/24 05/09/24 History calcium carb 333 mg-vit D3 133 1 tab PO DAILY 05/09/24 05/09/24 History unit-mag ox 133 mg-zinc oxide 5 mg tab carbidopa 25 mg-levodopa 100 mg 0.5 ea PO TID Restless Leg Syndrome 05/09/24 05/09/24 History tablet losartan 25 mg tablet 25 mg PO DAILY 05/09/24 05/09/24 History potassium chloride 20 mEq 20 meq PO BID PRN low potassium 05/09/24 05/09/24 History tablet,extended release (currently not scheduled) vitamin E 268 mg (400 unit) capsule 268 mg PO DAILY 05/09/24 05/09/24 History zolpidem 5 mg tablet 5 mg PO BEDTIME PRN Insomnia 05/09/24 05/09/24 History Allergies/Adverse Reactions Allergy/AdvReac Type Severity Reaction Status Date / Time gabapentin Allergy ALGY-Rash Verified 05/09/24 09:33 Current Medications: Generic Name Dose Route Start Last Admin Trade Name Freq PRN Reason Stop Dose Admin Acetylcysteine 200 mg 05/12/24 14:00 05/15/24 02:03 Acetylcysteine 200 Mg/Ml Mdv 10 Ml INHALATION 200 mg Q6H.RESP AMANDA Administration Albuterol/Ipratropium 3 ml 05/09/24 20:00 05/15/24 02:03 Ipratropium-Albuterol 3 Ml Neb INHALATION 3 ml Q6H.RESP AMANDA Administration Albuterol/Ipratropium 3 ml 05/09/24 15:16 05/09/24 15:49 Ipratropium-Albuterol 3 Ml Neb INHALATION 3 ml Q6H PRN Administration SHORTNESS OF BREATH Allopurinol 100 mg 05/10/24 09:00 05/14/24 09:08 Allopurinol 100 Mg Tablet PO 100 mg DAILY AMANDA Administration Amiodarone HCl 400 mg 05/10/24 18:00 05/14/24 18:07 Amiodarone 200 Mg Tablet PO 400 mg BID AMANDA Administration Apixaban 2.5 mg 05/09/24 21:00 05/10/24 09:45 Apixaban 5 Mg Tablet PO Not Given BID@0900,2100 AMANDA Atorvastatin Calcium 40 mg 05/09/24 21:00 05/14/24 20:29 Atorvastatin 40 Mg Tablet PO 40 mg BEDTIME AMANDA Administration Bumetanide 2 mg 05/11/24 12:10 05/12/24 03:41 Bumetanide 0.25 Mg/Ml Sdv 10 Ml IVP 2 mg Q8H AMANDA Administration Carbidopa/Levodopa 0.5 each 05/09/24 21:00 05/14/24 20:29 Carbidopa-Levodopa 25-100mg Tablet PO 0.5 each TID AMANDA Administration Clopidogrel Bisulfate 75 mg 05/10/24 09:00 05/12/24 08:08 Clopidogrel 75 Mg Tablet PO 75 mg DAILY AMANDA Administration Collagenase 1 applic 05/10/24 12:30 05/14/24 09:15 Collagenase Oint 30 Gm TOPICAL 1 applic DAILY AMANDA Administration Diltiazem HCl 30 mg 05/09/24 17:00 05/10/24 09:31 Diltiazem 30 Mg Tablet PO 30 mg QID AMANDA Administration Docusate Sodium 100 mg 05/09/24 18:00 05/14/24 18:08 Docusate Sodium 100 Mg Capsule PO 100 mg BID AMANDA Administration Doxycycline Monohydrate 100 mg 05/13/24 18:00 05/14/24 18:08 Doxycycline 100 Mg Tablet PO 100 mg BID AMANDA Administration Protocol Ferrous Sulfate 325 mg 05/10/24 08:00 05/13/24 09:58 Ferrous Sulfate Ec 325 Mg Tablet PO 325 mg BIDWM AMANDA Administration Finasteride 5 mg 05/09/24 21:00 05/14/24 20:29 Finasteride 5 Mg Tablet PO 5 mg BEDTIME AMANDA Administration Guaifenesin 600 mg 05/09/24 18:00 05/14/24 18:07 Guaifenesin 600 Mg Tablet PO 600 mg BID AMANDA Administration Norepinephrine Bitartrate 4 mg in 250 mls @ 0 mls/hr 05/09/24 15:20 05/13/24 08:40 Levophed IV 0 mcg/min .Q0M PRN 0 mls/hr MAP less than 65 Titration Protocol Per Protocol Dextrose 125 mls @ 750 mls/hr 05/12/24 09:29 05/12/24 10:53 D10w IV Infused PRN PRN Infusion HYPOGLYCEMIA Lactobacillus Acidophilus 2 tab 05/09/24 18:00 05/14/24 18:08 Lactobacillus 1 Tablet PO 2 tab BID AMANDA Administration Morphine Sulfate 2 mg 05/09/24 19:30 05/14/24 19:24 Morphine 4 Mg/Ml Sdv 1 Ml IVP 2 mg Q4H PRN Administration SHORTNESS OF BREATH Pantoprazole Sodium 40 mg 05/13/24 18:00 05/14/24 18:08 Pantoprazole 40 Mg Sdv IVP 40 mg BID AMANDA Administration Ranolazine 500 mg 05/09/24 18:00 05/14/24 18:08 Ranolazine (12hr) 500 Mg Tablet PO 500 mg BID AMANDA Administration Ropinirole HCl 1 mg 05/09/24 18:00 05/12/24 17:13 Ropinirole 2 Mg Tablet PO 1 mg QPM AMANDA Administration Senna 17.2 mg 05/09/24 21:00 05/14/24 21:26 Sennosides 8.6 Mg Tablet PO Not Given BEDTIME AMANDA Senna/Docusate Sodium 1 tab 05/13/24 09:00 05/14/24 09:08 Sennosides-Docusate Tablet PO 1 tab DAILY AMANDA Administration Sucralfate 1 gm 05/13/24 17:00 05/15/24 07:24 Sucralfate 1 Gm Tablet PO Not Given AC&BEDTIME AMANDA Tamsulosin HCl 0.4 mg 05/10/24 09:00 05/14/24 09:08 Tamsulosin 0.4 Mg Capsule PO 0.4 mg DAILY AMANDA Administration Pertinent History/Comorbid Conditions* Medical History (Updated 05/13/24 @ 13:55 by Qasim Diana MD) COPD (chronic obstructive pulmonary disease) RLS (restless legs syndrome) On carbidopa and Requip for this Aortic stenosis Peripheral arterial disease HTN (hypertension), benign Atrial fibrillation Diastolic CHF CKD (chronic kidney disease) Lower extremity edema Hypoxia Chronic stable angina Community acquired pneumonia Cellulitis and abscess of left leg Tobacco abuse SHARON (obstructive sleep apnea) Prescribed CPAP auto-titrating 5-9cm but not using due to feeling like suffocating; on oxygen at night History of sleep study (01/2021) severe obstructive sleep apnea, optimal pressure setting 6cm, with recommendation for auto-titrating CPAP 5-9 cm Atherosclerosis of leg with intermittent claudication History of cardioversion 03/16/2019 BPH (benign prostatic hyperplasia) Hyperlipidemia CAD (coronary artery disease) Varicose veins of bilateral lower extremities with other complications Surgical History (Updated 05/09/24 @ 13:10 by Mehnaz Gonzalez MD) S/P coronary angiogram 04/29/2007, 11/20/2021 ([place]) S/P carotid endarterectomy S/P AAA (abdominal aortic aneurysm) repair with [place] endograft S/P femoral-femoral bypass surgery S/P CABG (coronary artery bypass graft) 1988 X1, 2006 X2 Family History (Updated 06/18/21 @ 14:48 by Aby Cassidy RN) Diabetes Brother Mother CAD (coronary artery disease) Brother Mother Sister Heart disease Mother Cancer Brother Denies family history of Clotting disorder Dementia Chronic kidney disease (CKD) Suicide Anesthesia complication Bleeding disorder Lung disease Stroke Social History Smoking and tobacco/nicotine status: current every day tobacco/nicotine user Alcohol intake: never Substance/Drug Use: never Lives independently: No Household members: spouse Marital status: Pertinent Exam Findings alert, oriented x 3 and clear to auscultation bilaterally Recommendations Surgery/Procedure today Coding Level of Care Code Acute Code for Chg Fwd
--- NOTE | 2024-05-15 07:43 | P.ANESUD_ITS ---
Pre-Anesthetic Update Pre-Anesthetic Assessment: Date of Surgery/Procedure: 05/15/24 Preop Joelle gnosis: upper GI Bleeding Proposed Procedure: Operation Date: 05/14/24 08:00 Proposed Procedures p EGD(Not Applicable) - Qasim Diana MD Operation Date: 05/15/24 08:10 Proposed Procedures p Dialysis Catheter Insertion - Temporary Dialysis Catheter under sedation(Not Applicable) - Qasim Diana MD Any changes to Pre-Anesthetic Assessment?: No Last Intake: > 8hrs Labs Last 48hrs: Short CBC 05/14/24 05/15/24 Range/Units 03:09 03:28 WBC 7.61 8.71 (3.29-11.43) 10^ 3/uL Hgb 8.20 L 8.40 L (11.27-16.99) g/ dL Hct 26.0 L 26.7 L (37-53) % MCV 100.8 101.1 H (82-101) fl Plt Count 170 D 178 (157-399) 10^3/c mm Neut % (Auto) 87.6 86.0 % Neut # (Auto) 6.66 7.49 (1.8-7.7) 10^3/u L BMP 05/14/24 05/14/24 05/15/24 03:09 15:51 03:28 Sodium 139 138 142 Potassium 4.8 4.7 4.6 Chloride 102 100 104 Carbon Dioxide 25 24 25 BUN 146 H* 148 H* 149 H* Creatinine 3.5 H 3.4 H 3.3 H Glucose 98 126 H 104 Calcium 8.4 L 8.4 L 8.4 L Blood Bank 05/13/24 13:30 Blood Type O Positive Rho(D) Type Rh positive Antibody Screen Negative Vitals: Temperature 97.2 F L 05/15/24 04:00 Temperature Source Temporal Artery S can 05/15/24 04:00 Pulse Rate 89 05/15/24 06:02 Pulse Rhythm Irregular 05/14/24 20:00 Pulse Strength 1+ Faint 05/14/24 20:00 Respiratory Rate 22 H 05/15/24 06:00 Respiratory Effort Spontaneous, Shor t of Breath 05/14/24 20:00 Respiratory Depth Normal 05/14/24 20:00 Respiratory Patter n Normal 05/14/24 19:24 Blood Pressure 117/72 05/15/24 06:00 Blood Pressure Gretchen n 87 05/15/24 06:00 Blood Pressure Pos ition Semi Fowlers 05/15/24 06:00 Pulse Oximetry 90 05/15/24 06:00 Oxygen Delivery Me thod Nasal Cannula 05/15/24 06:00 Oxygen Flow Rate 5 05/15/24 06:00 Fraction of Inspir ed Oxygen 30 05/15/24 04:00 Sepsis Recent Feve r Within 48 Hours No 05/09/24 09:23 Exam: Pre-Anes Outpt Exam: alert, oriented x 3, clear to auscultation bilaterally and regular rate & rhythm Cardiac Studies: Echocardiogram 05/09/24
--- NOTE | 2024-05-15 08:16 | PM.PN ---
Subjective Subjective: The patient was seen and examined in the ICU. Family is at the bedside. Patient's breathing better. Hematuria is improved. Patient remains on oxygen. Patient still has edema. Still has wounds that are weeping. He has a poor appetite. His nausea he has no vomiting. Denies diarrhea. Medications: Reviewed: Yes Medication Review Details: Current Medications Acetaminophen (Acetaminophen 325 Mg Tablet) 650 mg PO Q6H PRN PRN Reason: MILD PAIN Acetylcysteine (Acetylcysteine 200 Mg/Ml Mdv 10 Ml) 200 mg INHALATION Q6H.RESP AMANDA Last Admin: 05/15/24 07:50 Dose: 200 mg Albuterol/Ipratropium (Ipratropium-Albuterol 3 Ml Neb) 3 ml INHALATION Q6H.RESP AMANDA Last Admin: 05/15/24 07:50 Dose: 3 ml Albuterol/Ipratropium (Ipratropium-Albuterol 3 Ml Neb) 3 ml INHALATION Q6H PRN PRN Reason: SHORTNESS OF BREATH Last Admin: 05/09/24 15:49 Dose: 3 ml Allopurinol (Allopurinol 100 Mg Tablet) 100 mg PO DAILY AMANDA Last Admin: 05/14/24 09:08 Dose: 100 mg Amiodarone HCl (Amiodarone 200 Mg Tablet) 400 mg PO BID AMANDA Last Admin: 05/14/24 18:07 Dose: 400 mg Apixaban (Apixaban 5 Mg Tablet) 2.5 mg PO BID@0900,2100 AMANDA Last Admin: 05/10/24 09:45 Dose: Not Given Atorvastatin Calcium (Atorvastatin 40 Mg Tablet) 40 mg PO BEDTIME AMANDA Last Admin: 05/14/24 20:29 Dose: 40 mg Bumetanide (Bumetanide 0.25 Mg/Ml Sdv 10 Ml) 2 mg IVP Q8H [facility] Last Admin: 05/12/24 03:41 Dose: 2 mg Carbidopa/Levodopa (Carbidopa-Levodopa 25-100mg Tablet) 0.5 each PO TID AMANDA Last Admin: 05/14/24 20:29 Dose: 0.5 each Clopidogrel Bisulfate (Clopidogrel 75 Mg Tablet) 75 mg PO DAILY AMANDA Last Admin: 05/12/24 08:08 Dose: 75 mg Collagenase (Collagenase Oint 30 Gm) 1 applic TOPICAL DAILY AMANDA Last Admin: 05/14/24 09:15 Dose: 1 applic Diltiazem HCl (Diltiazem 30 Mg Tablet) 30 mg PO QID [facility] Last Admin: 05/10/24 09:31 Dose: 30 mg Docusate Sodium (Docusate Sodium 100 Mg Capsule) 100 mg PO BID [facility] Last Admin: 05/14/24 18:08 Dose: 100 mg Doxycycline Monohydrate (Doxycycline 100 Mg Tablet) 100 mg PO BID [facility]; Protocol Last Admin: 05/14/24 18:08 Dose: 100 mg Ferrous Sulfate (Ferrous Sulfate Ec 325 Mg Tablet) 325 mg PO BIDWM [facility] Last Admin: 05/13/24 09:58 Dose: 325 mg Finasteride (Finasteride 5 Mg Tablet) 5 mg PO BEDTIME [facility] Last Admin: 05/14/24 20:29 Dose: 5 mg Guaifenesin (Guaifenesin 600 Mg Tablet) 600 mg PO BID [facility] Last Admin: 05/14/24 18:07 Dose: 600 mg Norepinephrine Bitartrate (Levophed) 4 mg in 250 mls @ 0 mls/hr IV .Q0M PRN; Protocol PRN Reason: MAP less than 65 Last Titration: 05/13/24 08:40 Dose: 0 mcg/min, 0 mls/hr Dextrose (D10w) 125 mls @ 750 mls/hr IV PRN PRN PRN Reason: HYPOGLYCEMIA Last Infusion: 05/12/24 10:53 Dose: Infused Sodium Chloride (Sodium Chloride 0.9%) 1,000 mls @ 0 mls/hr IV .Q0M PRN PRN Reason: hypotension or symptomatic Albumin Human (Albumin) 12.5 gm in 50 mls @ 60 mls/hr IV PRN PRN PRN Reason: Hypotension and/or symptomatic Lactobacillus Acidophilus (Lactobacillus 1 Tablet) 2 tab PO BID [facility] Last Admin: 05/14/24 18:08 Dose: 2 tab Lactulose (Lactulose Oral Liq 20 Gm/30 Ml Udc) 10 gm PO DAILY PRN PRN Reason: Constipation Morphine Sulfate (Morphine 4 Mg/Ml Sdv 1 Ml) 2 mg IVP Q4H PRN PRN Reason: SHORTNESS OF BREATH Last Admin: 05/14/24 19:24 Dose: 2 mg Ondansetron HCl (Ondansetron 2 Mg/Ml Sdv 2 Ml) 4 mg IVP Q6H PRN PRN Reason: NAUSEA AND VOMITING Pantoprazole Sodium (Pantoprazole 40 Mg Sdv) 40 mg IVP BID [facility] Last Admin: 05/14/24 18:08 Dose: 40 mg Ranolazine (Ranolazine (12hr) 500 Mg Tablet) 500 mg PO BID [facility] Last Admin: 05/14/24 18:08 Dose: 500 mg Ropinirole HCl (Ropinirole 2 Mg Tablet) 1 mg PO QPM [facility] Last Admin: 05/12/24 17:13 Dose: 1 mg Senna (Sennosides 8.6 Mg Tablet) 17.2 mg PO BEDTIME [facility] Last Admin: 05/14/24 21:26 Dose: Not Given Senna/Docusate Sodium (Sennosides-Docusate Tablet) 1 tab PO DAILY [facility] Last Admin: 05/14/24 09:08 Dose: 1 tab Sucralfate (Sucralfate 1 Gm Tablet) 1 gm PO AC&BEDTIME [facility] Last Admin: 05/15/24 07:24 Dose: Not Given Tamsulosin HCl (Tamsulosin 0.4 Mg Capsule) 0.4 mg PO DAILY [facility] Last Admin: 05/14/24 09:08 Dose: 0.4 mg Vitals/I&O/Wt Last Vital Signs Temp 97.2 F L 05/15/24 04:00 Pulse 97 05/15/24 07:53 Resp 18 05/15/24 07:53 BP 117/72 05/15/24 06:00 Pulse Ox 94 05/15/24 07:53 O2 Del Method Nasal Cannula 05/15/24 07:53 O2 Flow Rate 6 05/15/24 07:53 FiO2 30 05/15/24 04:00 05/14/24 05/15/24 05/15/24 22:59 06:59 14:59 Intake Total 60 / 372.5 100 / 100 Output Total 775 / 1075 290 / 1365 Balance -715 / -702.5 -290 / -992.5 100 / 100 Weight last 48 hrs Weight 92.079 kg Weight 93.304 kg Physical Exam Narrative: Elderly man in bed. Vital signs noted. Patient remains in a controlled A-fib. HEENT normocephalic/atraumatic. Neck is supple Lungs dull bases. Heart irregular regular. Abdomen is soft positive bowel sounds. Tremors bilateral edema. Skin tears and edema. Urinary Catheter Management: Squires: Cath Placed During This Visit: yes Reason for Continuing Indwelling Catheter: Accurate Measurement of Urinary Output in Critically Ill Patients Urinary Catheter Date of Insertion: 05/09/24 Urinary Catheter Time of Insertion: 14:29 Data 05/15/24 03:28 05/15/24 03:28 Micro: Microbiology 05/09/24 15:45 Blood Culture - Final Blood NO GROWTH AFTER 5 DAYS 05/09/24 13:05 Blood Culture - Final Blood NO GROWTH AFTER 5 DAYS A&P Assessment and plan (1) Acute kidney injury superimposed on chronic kidney disease: 89-year-old gentleman with A-fib, heart failure preserved EF, GI bleed, acute on chronic renal failure. Patient has responded to diuretics. Blood pressure remains on the low side. Case was discussed between my colleague Dr. spain and the hospitalist and cardiology. The decision was to proceed with dialysis to help remove fluids. I would also consider holding Eliquis and consider tapping pleural effusion. Anemia management iron saturation is low at 17 check ferritin. Use CBD and also may need IV iron. Renal bone mineral metabolism check vitamin D monitor phosphorus may need a binder and check PTH. Patient was seen and examined using A/V equipment via a telehealth visit. The nurse examined the patient. Consent for telehealth and for hemodialysis was obtained from the patient and his family. I discussed the patient condition with him and his family and answered their questions. Plan see above Attestations Medical Necessity Statement*: Shortness of breath, acute on chronic renal failure, A-fib, anemia, hypotension Time Spent in Patient Care: 16 - 35 minutes (>than 50% of time spent in counselling and/or direct pt care on unit). Coding Level of Care Code Acute Code for Chg Fwd Diagnoses Acute kidney injury superimposed on chronic kidney disease N17.9; N18.9
--- NOTE | 2024-05-15 08:21 | PC.NURSE ---
to surgery per bed at this time ...
--- NOTE | 2024-05-15 08:22 | USR_ITS ---
PROCEDURE INFORMATION: Exam: US Retroperitoneal; Complete; Kidneys and Bladder Exam date and time: 05/15/2024 9:53 AM Age: 89 years old Clinical indication: Condition or disease; Kidney or ureter condition; Other: [place] TECHNIQUE: Imaging protocol: Real-time ultrasound of the retroperitoneum with image documentation. Complete exam focused on the kidneys and bladder. COMPARISON: US renal BI* [id number] 03/09/2024 2:58 PM FINDINGS: Right kidney: The right kidney measures 11 cm in length and demonstrates a thinned echogenic parenchyma. Two cysts are noted with the largest measuring 4.8 cm in diameter. No mass or hydronephrosis noted. Left kidney: The left kidney measures 10 cm in length and demonstrates a thinned parenchyma. No mass or hydronephrosis noted. Urinary bladder: Unremarkable. Liver: There is evidence of hepatic cirrhosis with ascites. Other findings: The study was technically difficult. US/US renal BI* [id number] IMPRESSION: 1. Atrophic, echogenic kidneys bilaterally with no hydronephrosis 2. Hepatic cirrhosis with ascites
--- NOTE | 2024-05-15 08:30 | PC.NURSE ---
local done pt very awake no post op recovery.. cxr done line placement ,
[2024-05-15] MEDS: lidocaine-epi 1% PF 1:200,000 30 mL SDV INJECTION (08:45)
[2024-05-15] MEDS: heparin, porcine 1,000 unit/mL INJ 10 mL 10000 UNIT INTRACATH (08:46)
--- NOTE | 2024-05-15 08:53 | XRR_ITS ---
PROCEDURE INFORMATION: Exam: XR Chest Exam date and time: 05/15/2024 9:17 AM Age: 89 years old Clinical indication: Device placement; Other: Dialysis cath; Additional info: Line placement TECHNIQUE: Imaging protocol: Radiologic exam of the chest. Views: 1 view. COMPARISON: CR XR chest 1V portable [id number] 05/12/2024 11:54 AM FINDINGS: Tubes, catheters and devices: A right-sided central line has its tip in good position within the SVC. PICC from the left arm with the tip in the distal SVC in satisfactory position. Lungs: Patchy pulmonary infiltrates are noted bilaterally, more prominent on the right than left. The lung bases are not included on this study. Pleural spaces: Unremarkable. No pleural effusion. No pneumothorax. Heart/Mediastinum: Prominent cardiomegaly is noted. Bones/joints: Sternal sutures are noted. XR/XR chest 1V portable [id number] IMPRESSION: Good central line positioning Persistent pulmonary edema
--- NOTE | 2024-05-15 08:58 | P.OP_ITS ---
Operative Report Date of procedure: May 15, 2024 Pre-op diagnosis: Need for dialysis Post-op diagnosis: Same Post-op findings: Normal vascular anatomy Procedure done: Insertion of right IJ temporary dialysis catheter Implants: 16 cm double-lumen dialysis catheter Surgeon: Qasim Diana MD Net Solutions Architect: TATY OR STaff Estimated blood loss: 5 Complications: none Brief History: 89-year-old male who is noted to be uremic and has acute on chronic kidney injury, he has been identified as a candidate for temporary dialysis by nephrology. I have been requested to proceed with temporary dialysis catheter placement. After all risk and benefits were discussed with decided to proceed to the operating room for this due to patient clinical status, hide surgical risk and elevated cardiac risk. Procedure: Patient was brought into the OR, he was placed in the supine position. Moderate anesthesia was given. The right neck and chest was prepped and draped in the usual sterile fashion. Timeout was conducted. The right IJ vein was identified with ultrasound. Local anesthesia was infiltrated in soft tissue on top of the vein. The vein was then cannulated with the 18-gauge needle under direct ultrasound guidance, immediate return of blood was noted upon entering the vein. A wire was advanced into the vein and the needle was removed. Ultrasound was used to verify position of the wire and was noted to be in a satisfactory location. I then proceeded to make a 0.5 cm incision at the level of the wire insertion site in the neck. I then dilated the tract using sequential sizes of dilators over the wire. I then advanced the double-lumen dialysis catheter over the wire, the wire was then removed. The catheter was tested and noted to have adequate blood return for blood ports as well as flushing freely. The catheter was fixed in place with suture. I then tested again the catheter and was realizing that it was working well I hep-locked the catheter. A Biopatch and sterile dressing was applied. At the end of the procedure the patient tolerated well, all counts were correct and he was transferred to the ICU in critical but stable condition
--- NOTE | 2024-05-15 09:16 | PM.PN ---
Subjective Subjective: The patient is feeling better. He had the hemodialysis catheter placement this morning. Scheduled for hemodialysis today. Has no chest pain or shortness of breath. Vitals seems to be stable. Telemetry shows atrial fibrillation with a controlled ventricular response rate Medications: Medication Review Details: Current Medications Acetaminophen (Acetaminophen 325 Mg Tablet) 650 mg PO Q6H PRN PRN Reason: MILD PAIN Acetylcysteine (Acetylcysteine 200 Mg/Ml Mdv 10 Ml) 200 mg INHALATION Q6H.RESP [facility] Last Admin: 05/15/24 07:50 Dose: 200 mg Albuterol/Ipratropium (Ipratropium-Albuterol 3 Ml Neb) 3 ml INHALATION Q6H.RESP AMANDA Last Admin: 05/15/24 07:50 Dose: 3 ml Albuterol/Ipratropium (Ipratropium-Albuterol 3 Ml Neb) 3 ml INHALATION Q6H PRN PRN Reason: SHORTNESS OF BREATH Last Admin: 05/09/24 15:49 Dose: 3 ml Allopurinol (Allopurinol 100 Mg Tablet) 100 mg PO DAILY [facility] Last Admin: 05/14/24 09:08 Dose: 100 mg Amiodarone HCl (Amiodarone 200 Mg Tablet) 400 mg PO BID [facility] Last Admin: 05/14/24 18:07 Dose: 400 mg Apixaban (Apixaban 5 Mg Tablet) 2.5 mg PO BID@0900,2100 [facility] Last Admin: 05/10/24 09:45 Dose: Not Given Atorvastatin Calcium (Atorvastatin 40 Mg Tablet) 40 mg PO BEDTIME [facility] Last Admin: 05/14/24 20:29 Dose: 40 mg Bumetanide (Bumetanide 0.25 Mg/Ml Sdv 10 Ml) 2 mg IVP Q8H [facility] Last Admin: 05/12/24 03:41 Dose: 2 mg Carbidopa/Levodopa (Carbidopa-Levodopa 25-100mg Tablet) 0.5 each PO TID [facility] Last Admin: 05/14/24 20:29 Dose: 0.5 each Clopidogrel Bisulfate (Clopidogrel 75 Mg Tablet) 75 mg PO DAILY [facility] Last Admin: 05/12/24 08:08 Dose: 75 mg Collagenase (Collagenase Oint 30 Gm) 1 applic TOPICAL DAILY [facility] Last Admin: 05/14/24 09:15 Dose: 1 applic Diltiazem HCl (Diltiazem 30 Mg Tablet) 30 mg PO QID [facility] Last Admin: 05/10/24 09:31 Dose: 30 mg Docusate Sodium (Docusate Sodium 100 Mg Capsule) 100 mg PO BID [facility] Last Admin: 05/14/24 18:08 Dose: 100 mg Doxycycline Monohydrate (Doxycycline 100 Mg Tablet) 100 mg PO BID [facility]; Protocol Last Admin: 05/14/24 18:08 Dose: 100 mg Ferrous Sulfate (Ferrous Sulfate Ec 325 Mg Tablet) 325 mg PO BIDWM [facility] Last Admin: 05/13/24 09:58 Dose: 325 mg Finasteride (Finasteride 5 Mg Tablet) 5 mg PO BEDTIME [facility] Last Admin: 05/14/24 20:29 Dose: 5 mg Guaifenesin (Guaifenesin 600 Mg Tablet) 600 mg PO BID [facility] Last Admin: 05/14/24 18:07 Dose: 600 mg Norepinephrine Bitartrate (Levophed) 4 mg in 250 mls @ 0 mls/hr IV .Q0M PRN; Protocol PRN Reason: MAP less than 65 Last Titration: 05/13/24 08:40 Dose: 0 mcg/min, 0 mls/hr Dextrose (D10w) 125 mls @ 750 mls/hr IV PRN PRN PRN Reason: HYPOGLYCEMIA Last Infusion: 05/12/24 10:53 Dose: Infused Sodium Chloride (Sodium Chloride 0.9%) 1,000 mls @ 0 mls/hr IV .Q0M PRN PRN Reason: hypotension or symptomatic Albumin Human (Albumin) 12.5 gm in 50 mls @ 60 mls/hr IV PRN PRN PRN Reason: Hypotension and/or symptomatic Lactobacillus Acidophilus (Lactobacillus 1 Tablet) 2 tab PO BID [facility] Last Admin: 05/14/24 18:08 Dose: 2 tab Lactulose (Lactulose Oral Liq 20 Gm/30 Ml Udc) 10 gm PO DAILY PRN PRN Reason: Constipation Morphine Sulfate (Morphine 4 Mg/Ml Sdv 1 Ml) 2 mg IVP Q4H PRN PRN Reason: SHORTNESS OF BREATH Last Admin: 05/14/24 19:24 Dose: 2 mg Ondansetron HCl (Ondansetron 2 Mg/Ml Sdv 2 Ml) 4 mg IVP Q6H PRN PRN Reason: NAUSEA AND VOMITING Pantoprazole Sodium (Pantoprazole 40 Mg Sdv) 40 mg IVP BID [facility] Last Admin: 05/14/24 18:08 Dose: 40 mg Ranolazine (Ranolazine (12hr) 500 Mg Tablet) 500 mg PO BID [facility] Last Admin: 05/14/24 18:08 Dose: 500 mg Ropinirole HCl (Ropinirole 2 Mg Tablet) 1 mg PO QPM [facility] Last Admin: 05/12/24 17:13 Dose: 1 mg Senna (Sennosides 8.6 Mg Tablet) 17.2 mg PO BEDTIME [facility] Last Admin: 05/14/24 21:26 Dose: Not Given Senna/Docusate Sodium (Sennosides-Docusate Tablet) 1 tab PO DAILY [facility] Last Admin: 05/14/24 09:08 Dose: 1 tab Sucralfate (Sucralfate 1 Gm Tablet) 1 gm PO AC&BEDTIME [facility] Last Admin: 05/15/24 07:24 Dose: Not Given Tamsulosin HCl (Tamsulosin 0.4 Mg Capsule) 0.4 mg PO DAILY [facility] Last Admin: 05/14/24 09:08 Dose: 0.4 mg Vitals/I&O/Wt Last Vital Signs Temp 97.2 F L 05/15/24 04:00 Pulse 93 05/15/24 08:00 Resp 14 05/15/24 08:00 BP 109/71 05/15/24 08:00 Pulse Ox 94 05/15/24 07:53 O2 Del Method Nasal Cannula 05/15/24 07:53 O2 Flow Rate 6 05/15/24 07:53 FiO2 30 05/15/24 04:00 05/14/24 05/15/24 05/15/24 22:59 06:59 14:59 Intake Total 60 / 372.5 100 / 100 Output Total 775 / 1075 290 / 1365 Balance -715 / -702.5 -290 / -992.5 100 / 100 Weight last 48 hrs Weight 203 lb Weight 205 lb 11.2 oz Physical Exam Narrative: GENERAL: The patient is alert and oriented x 3. Not in any acute distress. HEENT: Minimal pallor. No icterus or lymphadenopathy.Oral cavity: There are no mucous membrane lesions. NECK: Trachea appears to be central. No masses noted. No JVD or thyromegaly appreciated. RESPIRATORY: Scattered diffuse expiratory wheezing and coarse crackles bilaterally BREASTS: Deferred. HEART: The heart sounds are normal. No S3 or S4. Short systolic murmur in the left renal border. No pericardial rub ABDOMEN: No vessel pulsations or distention. No tenderness. No organomegaly appreciated. Bowel sounds are normally heard. : Deferred. RECTAL: Deferred. LYMPHATIC: No lymphadenopathy noted in the neck. EXTREMITIES: 1+ edema both lower extremities. Some weeping ulcers on the anterior aspect of the right leg, clinically improving MUSCULOSKELETAL: No acute joint deformities or swelling SKIN: There are no significant rashes or ecchymosis. Features of chronic venous stasis and stasis dermatitis especially on the left leg. Small superficial ulcers in the right leg. NEUROPSYCHIATRIC: The patient is alert and oriented x3. Not in any distress. Urinary Catheter Management: Squires: Cath Placed During This Visit: yes Reason for Continuing Indwelling Catheter: Accurate Measurement of Urinary Output in Critically Ill Patients Urinary Catheter Date of Insertion: 05/09/24 Urinary Catheter Time of Insertion: 14:29 Data 05/15/24 03:28 05/15/24 03:28 Other Labs: Laboratory Last Values WBC 8.71 10^3/uL (3.29-11.43) 05/15/24 03: RBC 2.64 10^6/uL (3.85-5.65) L 05/15/24 03:28 Hgb 8.40 g/dL (11.27-16.99) L 05/15/24 03:28 Hct 26.7 % (37-53) L 05/15/24 03:28 MCV 101.1 fl (82-101) H 05/15/24 03:28 MCH 31.8 pg (27-33) 05/15/24 03:28 MCHC 31.5 g/dL (30-55) 05/15/24 03:28 RDW 21.6 % (12.1-15.1) H 05/15/24 03:28 Plt Count 178 10^3/cmm (157-399) 05/15/24 03:28 MPV 9.6 fL (7.4-10.4) 05/15/24 03:28 Neut % (Auto) 86.0 % 05/15/24 03:28 Lymph % (Auto) 3.7 % 05/15/24 03:28 [place] % (Auto) 9.5 % 05/15/24 03:28 Eos % (Auto) 0.0 % 05/15/24 03:28 Baso % (Auto) 0.1 % 05/15/24 03:28 Neut # (Auto) 7.49 10^3/uL (1.8-7.7) 05/15/24 03:28 Lymph # (Auto) 0.3 10^3/uL (0.8-4.8) L 05/15/24 03:28 [place] # (Auto) 0.8 10^3/uL (0.2-0.9) 05/15/24 03:28 Eos # (Auto) 0.0 10^3/uL (0.0-0.8) 05/15/24 03:28 Baso # (Auto) 0.0 10^3/uL (0.0-0.1) 05/15/24 03:28 Nucleated RBC % (auto) 0 % 05/15/24 03:28 Nucleated RBCs # 0.0 /100WBC 05/15/24 03:28 PT 22.80 SECONDS (12.1-14.9) H 05/09/24 15:45 INR 1.93 (0.8-1.2) H 05/09/24 15:45 APTT 47.3 SECONDS (23.9-36.7) H 05/09/24 15:45 Specimen Type Arterial 05/10/24 04:13 Sample Site Radial, right 05/10/24 04:13 ABG pH 7.45 (7.35-7.45) 05/10/24 04:13 ABG pCO2 33.6 mmHg (35-45) L 05/10/24 04:13 ABG pO2 64.4 mmHg (80.0-100.0) L 05/10/24 04:13 ABG PO2/FiO2 Ratio 0 05/10/24 04:13 ABG HCO3 23.2 mmol/L (22-26) 05/10/24 04:13 ABG O2 Saturation 99.5 05/09/24 09:50 ABG Base Excess -0.6 mmol/L (-2.0-2.0) 05/10/24 04:13 [place] Test Pos 05/10/24 04:13 A-a O2 Gradient 13.1 mmHg (5-10) H 05/09/24 09:50 Hematocrit 25.3 % (42-52) L 05/10/24 04:13 Hgb O2 Saturation 95.5 % (95-100) 05/09/24 09:50 Carboxyhemoglobin 3.7 %THgb (0.4-20.1) 05/09/24 09:50 Methemoglobin 0.4 % (0.4-1.5) 05/09/24 09:50 Total Hemoglobin 7.2 g/dL (14-18) L 05/09/24 09:50 Sodium 132.0 mmol/L (131-143) 05/09/24 09:50 Potassium 4.7 mmol/L (3.5-5.0) 05/09/24 09:50 Glucose 97.0 mg/dL (70-115) 05/09/24 09:50 Ionized Calcium 1.2 mmol/L (1.1-1.4) 05/09/24 09:50 O2 Delivery Device Bipap 05/10/24 04:13 O2 Liters/Min 4.0 % 05/09/24 09:50 FiO2 30.0 % 05/10/24 04:13 Tidal Volume 0.40 05/10/24 04:13 Field Crop I Farmworker ID [place] 05/10/24 04:13 Sodium 142 mmol/L (136-145) 05/15/24 03:28 Potassium 4.6 mmol/L (3.5-5.1) 05/15/24 03:28 Chloride 104 mmol/L (98-107) 05/15/24 03:28 Carbon Dioxide 25 mmol/L (22-29) 05/15/24 03:28 Anion Gap 17.6 (5-19) 05/15/24 03:28 BUN 149 mg/dL (8-23) H* 05/15/24 03:28 Creatinine 3.3 mg/dL (0.7-1.2) H 05/15/24 03:28 GFR Calculation Not Reportable 05/15/24 03:28 Glucose 104 mg/dL (65-115) 05/15/24 03:28 POC Glucose 136 mg/dL (70-110) H 05/12/24 11:27 Calculated Osmolality 343 mOsm/kg (285-295) H 05/15/24 03:28 Lactic Acid 1.6 mmol/L (0.5-2.2) 05/09/24 09:58 Uric Acid 11.9 mg/dL (3.4-7.0) H 05/09/24 09:58 Calcium 8.4 mg/dL (8.5-10.5) L 05/15/24 03:28 Phosphorus 6.8 mg/dL (2.5-4.5) H 05/10/24 04:46 Magnesium 3.0 mg/dL (1.7-2.3) H 05/10/24 04:46 Iron 55 ug/dL (59-158) L 05/09/24 09:58 TIBC 315 mcg/dl 05/09/24 09:58 % Saturation 17.4 % (20-50) L 05/09/24 09:58 Unsat Iron Binding 260 ug/dL (112-347) 05/09/24 09:58 Total Bilirubin 0.4 mg/dL (0.15-1.2) 05/12/24 13:12 AST 18 U/L (0-40) 05/12/24 13:12 ALT < 5 U/L (0-41) 05/12/24 13:12 Alkaline Phosphatase 87 U/L (40-130) 05/12/24 13:12 Troponin T Baseline 74 ng/L (0-15) H 05/09/24 09:58 Troponin T 120 Minute 72.15 ng/L (0-15) H 05/09/24 13:05 Delta Troponin T -1.85 ABS# (0-10) L 05/09/24 13:05 Troponin T Hi Sens 6Hr 61.14 ng/L (0-15) H 05/09/24 15:45 Troponin T Hi Sens 6Hr Delta -12.86 ng/L (0-12) L 05/09/24 15:45 C-Reactive Protein 26.9 mg/L (0.0-4.9) H 05/09/24 09:58 NT-Pro-B Natriuret Pep 2199 pg/mL (0-450) H 05/09/24 09:58 Total Protein 5.5 g/dL (6.6-8.7) L 05/12/24 13:12 Albumin 3.2 g/dL (3.5-5.2) L 05/12/24 13:12 Globulin 2.3 g/dL (1.3-4.6) 05/12/24 13:12 Urine Color Yellow (Yellow) 05/09/24 14:27 Urine Appearance Clear (CLEAR) 05/09/24 14:27 Urine pH 5 (5-7) 05/09/24 14:27 Ur Specific [place] 1.020 (1.005-1.030) 05/09/24 14:27 Urine Protein Trace (Negative) 05/09/24 14:27 Urine Glucose (UA) Norm (Normal) 05/09/24 14:27 Urine Ketones 1+ (Negative) H 05/09/24 14:27 Urine Blood Neg (Negative) 05/09/24 14:27 Urine Nitrate Negative (Negative) 05/09/24 14:27 Urine Bilirubin Neg (Negative) 05/09/24 14:27 Urine Urobilinogen Neg mg/dL (Negative) 05/09/24 14:27 Ur Leukocyte Esterase Negative (Negative) 05/09/24 14:27 Urine RBC Rare /hpf (0-2) 05/09/24 14:27 Urine WBC 0-4 /hpf (0-5) H 05/09/24 14:27 Ur Squamous Epith Cells 0-4 /hpf (0-5) H 05/09/24 14:27 Ur Transition Epith Cell 0-4 /hpf 05/09/24 14:27 Amorphous Sediment Not Reportable 05/09/24 14:27 Urine Bacteria 1+ /hpf (NONE) H 05/09/24 14:27 Hyaline Casts 15-25 /lpf H 05/09/24 14:27 Urine Mucus Trace /hpf 05/09/24 14:27 Ur Random Microalbumin 49 ug/dL (0-20) H 05/12/24 13:17 Ur Random Sodium 28 mmol/L 05/12/24 13:17 Ur Random Chloride 34 mmol/L 05/12/24 13:17 Urine Creatinine 60 mg/dL (39-259) 05/12/24 13:17 Microalb/Creat Ratio 817 mg/dL (0-20) H 05/12/24 13:17 Adenovirus (PCR) Not detected (NOT DETECT) 05/09/24 10:00 C. pneumoniae DNA (PCR) Not detected (NOT DETECT) 05/09/24 10:00 Coronavirus 229E (PCR) Not detected (NOT DETECT) 05/09/24 10:00 Human Metapneumovir PCR Not detected (NOT DETECT) 05/09/24 10:00 Influenza A (H1) PCR Not detected (NOT DETECT) 05/09/24 10:00 Influ A (H1/09) PCR Not detected (NOT DETECT) 05/09/24 10:00 Influenza A (H3) PCR Not detected (NOT DETECT) 05/09/24 10:00 Influenza Type A (PCR) Not detected (NOT DETECT) 05/09/24 10:00 Influenza Type B (PCR) Not detected (NOT DETECT) 05/09/24 10:00 M. pneumoniae (PCR) Not detected (NOT DETECT) 05/09/24 10:00 Parainfluenza 1 (PCR) Not detected (NOT DETECT) 05/09/24 10:00 Parainfluenza 2 (PCR) Not detected (NOT DETECT) 05/09/24 10:00 Parainfluenza 3 (PCR) Not detected (NOT DETECT) 05/09/24 10:00 Parainfluenza 4 (PCR) Not detected (NOT DETECT) 05/09/24 10:00 RSV Type A (PCR) Not detected (NOT DETECT) 05/09/24 10:00 RSV Type B (PCR) Not detected (NOT DETECT) 05/09/24 10:00 Entero/Rhino (PCR) Not detected (NOT DETECT) 05/09/24 10:00 SARS-CoV-2 (PCR) Not detected (NOT DETECT) 05/09/24 10:00 Blood Type O Positive 05/13/24 13:30 Rho(D) Type Rh positive 05/13/24 13:30 Antibody Screen Negative 05/13/24 13:30 Crossmatch See Detail 05/13/24 13:30 Micro: Microbiology 05/09/24 15:45 Blood Culture - Final Blood NO GROWTH AFTER 5 DAYS 05/09/24 13:05 Blood Culture - Final Blood NO GROWTH AFTER 5 DAYS A&P Assessment and plan (1) Atherosclerotic heart disease of [place] coronary artery with unstable angina pectoris: Patient seems to have significant improvement of the chest pain. At this point, we may continue on the current medications. If he continues to remain stable, he may not require any further investigations at this point. Qualifiers: [place] vs. transplanted heart: [place] heart Qualified Code(s): I25.110 - Atherosclerotic heart disease of [place] coronary artery with unstable angina pectoris (2) Acute kidney injury superimposed on chronic kidney disease: Possible hemodialysis today (3) Hypotension: The blood pressure seems to be stable, may continue on the current management. Qualifiers: Hypotension type: other hypotension type Qualified Code(s): I95.89 - Other hypotension (4) Atrial fibrillation: Patient is in atrial fibrillation with controlled ventricular response rate. May continue on the current treatment. Qualifiers: Atrial fibrillation type: persistent (not longstanding) Qualified Code(s): I48.19 - Other persistent atrial fibrillation (5) Acute on chronic diastolic heart failure: Heart failure is fairly compensated. Will continue on the current management. (6) Hyperlipidemia: May continue on the current medication Qualifiers: Hyperlipidemia type: unspecified Qualified Code(s): E78.5 - Hyperlipidemia, unspecified (7) Peripheral arterial disease: Clinically seems to be stable. May continue on the current treatment. (8) Anemia: The hemoglobin seems to be steady. The etiology is not clear. He may need further workup. Qualifiers: Anemia type: unspecified type Qualified Code(s): D64.9 - Anemia, unspecified (9) Aortic stenosis: The patient seems to have a severe low gradient aortic valve stenosis. Most likely this is a technical error. We may have to repeat the aortic in the LV outflow tract Doppler studies to reevaluate the stenosis. Qualifiers: Cardiac valve disease etiology: nonrheumatic Qualified Code(s): I35.0 - Nonrheumatic aortic (valve) stenosis Plan Continue on the current management. Attestations Medical Necessity Statement*: Deferred to the primary Coding Level of Care Code 60995 Diagnoses Atherosclerosis of [place] coronary artery of [place] heart with unstable angina pectoris I25.110 [place] vs. transplanted heart: [place] heart Acute kidney injury superimposed on chronic kidney disease N17.9; N18.9 Other specified hypotension I95.89 Hypotension type: other hypotension type Persistent atrial fibrillation I48.19 Atrial fibrillation type: persistent (not longstanding) Acute on chronic diastolic heart failure I50.33 Hyperlipidemia, unspecified hyperlipidemia type E78.5 Hyperlipidemia type: unspecified Peripheral arterial disease I73.9 Anemia D64.9 Anemia type: unspecified type Nonrheumatic aortic valve stenosis I35.0 Cardiac valve disease etiology: nonrheumatic
[2024-05-15] MEDS: lactobacillus 1 Tablet 2 TAB PO ×2 (09:30→17:52)
[2024-05-15] MEDS: allopurinol 100 mg Tablet PO (09:30)
[2024-05-15] MEDS: doxycycline 100 mg Tablet PO ×2 (09:30→17:53)
[2024-05-15] MEDS: carbidopa-levodopa 25-100mg Tablet 0.5 EACH PO ×3 (09:31→21:07)
[2024-05-15] MEDS: tamsulosin 0.4 mg Capsule PO (09:31)
[2024-05-15] MEDS: ranolazine (12HR) 500 mg Tablet PO ×2 (09:31→17:53)
[2024-05-15] MEDS: amiodarone 200 mg Tablet 400 MG PO ×2 (09:31→17:53)
[2024-05-15] MEDS: guaiFENesin 600 mg Tablet PO ×2 (09:31→17:53)
[2024-05-15] MEDS: pantoprazole 40 mg SDV IVP ×2 (09:32→17:53)
[2024-05-15 10:10] LABS: Hepatitis B Surface AB < 3.5 (11.5-1000); Hepatitis B Surface Antigen Non-Reactive (Nonreactive)
[2024-05-15] MEDS: heparin, porcine 1,000 unit/mL INJ 10 mL 1000 UNIT IV (11:04)
--- NOTE | 2024-05-15 11:54 | P.PN_ITS ---
Subjective 2 Subjective: seen this morning dialysis cath placed this am pt surrounded by family pleasant plan for dialysis today family states they would like to restrict visitors today -2L balance overall 175 UO overnight winslow draining brownish urine, no gross hematuria Vitals/I&O/Wt Last Vital Signs Temp 97.2 F L 05/15/24 04:00 Pulse 102 H 05/15/24 10:00 Resp 19 H 05/15/24 10:00 BP 122/75 05/15/24 10:00 Pulse Ox 94 05/15/24 07:53 O2 Del Method Nasal Cannula 05/15/24 07:53 O2 Flow Rate 6 05/15/24 07:53 FiO2 30 05/15/24 04:00 05/14/24 05/15/24 05/15/24 22:59 06:59 14:59 Intake Total 60 / 372.5 100 / 100 Output Total 775 / 1075 290 / 1365 175 / 175 Balance -715 / -702.5 -290 / -992.5 -75 / -75 Weight last 48 hrs Weight 92.079 kg Weight 93.304 kg Physical Exam 2 Narrative: Pleasant cooperative poor historian No significant asterixis No sign of confusion Pleasant calm Hemodynamic stable brownish urine in bag noted Abdomen soft Awake and alert Currently on 6 L nasal cannula Urinary Catheter Management: Winslow: Cath Placed During This Visit: yes Reason for Continuing Indwelling Catheter: Accurate Measurement of Urinary Output in Critically Ill Patients Urinary Catheter Date of Insertion: 05/09/24 Urinary Catheter Time of Insertion: 14:29 Data 05/15/24 03:28 05/15/24 03:28 Micro: Microbiology 05/09/24 15:45 Blood Culture - Final Blood NO GROWTH AFTER 5 DAYS 05/09/24 13:05 Blood Culture - Final Blood NO GROWTH AFTER 5 DAYS A&P Assessment and plan (1) Diastolic CHF: Qualifiers: Heart failure chronicity: acute on chronic Qualified Code(s): I50.33 - Acute on chronic diastolic (congestive) heart failure (2) Acute on chronic diastolic heart failure: (3) Aortic stenosis: Qualifiers: Cardiac valve disease etiology: nonrheumatic Qualified Code(s): I35.0 - Nonrheumatic aortic (valve) stenosis (4) Peripheral arterial disease: (5) Atrial fibrillation: Qualifiers: Atrial fibrillation type: persistent (not longstanding) Qualified Code(s): I48.19 - Other persistent atrial fibrillation (6) Chronic anticoagulation: (7) Constipation: (8) GI bleeding: (9) Acute kidney injury superimposed on chronic kidney disease: (10) BPH (benign prostatic hyperplasia): Qualifiers: Lower urinary tract symptom detail: urinary hesitancy Lower urinary tract symptom presence: symptoms present Qualified Code(s): N40.1 - Benign prostatic hyperplasia with lower urinary tract symptoms; R39.11 - Hesitancy of micturition (11) Acute blood loss anemia: (12) Cellulitis: (13) RLS (restless legs syndrome): (14) On home oxygen therapy: (15) COPD with acute exacerbation: (16) SHARON (obstructive sleep apnea): (17) Lower extremity edema: Plan Acute diastolic CHF exacerbation Hypokalemia improving Patient has been off Lasix drip for 24 hours Creatinine and BUN improving No active chest pain Acute on chronic kidney disease Creatinine improving off Lasix drip Will follow with nephrology recommendations regarding diuretic continuation BUN improved as well No plan for dialysis as of yet Acute GI blood loss anemia Status post EGD 05/14 which showed gastric erosion/gastritis Patient also has hematuria Hematuria started 05/13 Most likely active source of anemia seems to be GI blood loss Status post 2 units PRBC First unit was given on admission, second unit given 05/13 A-fib without RVR Off Eliquis and Plavix Secondary to hematuria and GI blood loss Low extremity edema related to diastolic CHF No signs of abscess, CT leg was done No significant worsening As per the family his legs are getting better Applying topical bacitracin, Santyl with daily dressing change Right common iliac stenosis, 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 planned as per cardiology As per the family 2017 at [facility] attempt was made however they were not able to revascularize Patient has been on Plavix and atorvastatin Plavix on hold Constipation: Continue bowel regimen Family had concern regarding his stuttering, I do not see any focal deficit, his mouth is extremely dry he was n.p.o., will keep blood pressure low to get CT head without contrast if needed Intermittent chest pain Patient takes nitroglycerin which improved his pain He gets antianginal medications Cardiology recommended medical management, previous angiogram showed patent stents atherosclerotic disease which was not amenable to intervention Continue ICU management Full code Start renal nondialysis diet I did call [facility] yesterday they did not accept transfer because there was no acute indication that call was made on request of the family I spoke with Dr. Perez hospitalist Full code Resting tremors patient takes carbidopa levodopa Todays plan 05/15 - Dialysis catheter placement today - plan for dialysis today - family at bedside, no gross hematuria today - Denies chest pain today, not a candidate for intervention at this time. Cardiology following - Full Code - HB 8.40 today. Pt s/p prbc . EGD showed gastric erosion/gastritis. Plavix on hold - Vitals stable this AM. on 6L NC, hopefully some improvement after dialysis Attestations 2 Medical Necessity Statement*: continue icu level care Diagnoses Acute on chronic diastolic congestive heart failure I50.33 Heart failure chronicity: acute on chronic Acute on chronic diastolic heart failure I50.33 Nonrheumatic aortic valve stenosis I35.0 Cardiac valve disease etiology: nonrheumatic Peripheral arterial disease I73.9 Persistent atrial fibrillation I48.19 Atrial fibrillation type: persistent (not longstanding) Chronic anticoagulation Z79.01 Constipation K59.00 GI bleeding K92.2 Acute kidney injury superimposed on chronic kidney disease N17.9; N18.9 Benign prostatic hyperplasia with urinary hesitancy N40.1; R39.11 Lower urinary tract symptom detail: urinary hesitancy Lower urinary tract symptom presence: symptoms present Acute blood loss anemia D62 Cellulitis L03.90 RLS (restless legs syndrome) G25.81 On home oxygen therapy Z99.81 COPD with acute exacerbation J44.1 SHARON (obstructive sleep apnea) G47.33 Lower extremity edema R60.0
[2024-05-15] MEDS: sucralfate 1 gm Tablet PO ×3 (11:58→21:07)
[2024-05-15] MEDS: collagenase oint 30 gm 1 APPLIC TOPICAL (11:58)
[2024-05-15] MEDS: heparin, porcine 1,000 unit/mL INJ 10 mL 10000 UNIT IRRIGATION (12:19)
[2024-05-15] MEDS: morphine 4 mg/mL SDV 1 mL 2 MG IVP ×2 (12:59→21:25)
[2024-05-15] MEDS: albumin 12.5 GM/50 ML VIAL IV (13:35)
[2024-05-15] MEDS: docusate sodium 100 mg Capsule PO (17:53)
--- NOTE | 2024-05-15 19:23 | PC.HD ---
Pt tolerated initial dialysis fairly well, transient asymptomatic hypotension near tx end responded well to albumin administration, but precluded reaching fluid removal goal. New temporary catheter functioned well.
[2024-05-15] MEDS: atorvastatin 40 mg Tablet PO (21:07)
[2024-05-15] MEDS: sennosides 8.6 mg Tablet 17.2 MG PO (21:07)
[2024-05-15] MEDS: finasteride 5 mg Tablet PO (21:07)
[2024-05-16] VITALS (102 sets, daily range): BP systolic 64–143; BP diastolic 46–91; PULSE 72–112; RESP 10–31; TEMP 35.8–36.9; O2SAT 81–100
[2024-05-16] MEDS: ipratropium-albuterol 3 mL Neb INHALATION ×4 (01:20→20:32)
[2024-05-16] MEDS: acetylcysteine 200 mg/mL MDV 10 mL INHALATION ×4 (01:20→20:32)
[2024-05-16] MEDS: morphine 4 mg/mL SDV 1 mL 2 MG IVP ×2 (04:34→21:13)
[2024-05-16 05:02] LABS: Eosinophils # 0.1 10^3/uL (0.0-0.8); Eosinophils % 0.5 %; Hematocrit 27.2 % (37-53); Lymphocytes # 0.4 10^3/uL (0.8-4.8); Mean Corpuscular HGB Conc 30.9 g/dL (30-55); Mean Corpuscular Hemoglobin 31.6 pg (27-33); Mean Corpuscular Volume 102.3 fl (82-101); Mean Platelet Volume 9.5 fL (7.4-10.4); Monocytes # 1.1 10^3/uL (0.2-0.9); Monocytes % 10.9 %; Neutrophils # 8.81 10^3/uL (1.8-7.7); Nucleated Red Blood Cells % 0 %; Platelet Count 144 10^3/cmm (157-399); Red Blood Count 2.66 10^6/uL (3.85-5.65); Red Cell Distribution Width 21.3 % (12.1-15.1); White Blood Count 10.48 10^3/uL (3.29-11.43)
[2024-05-16 05:22] LABS: Calcium 8.2 mg/dL (8.5-10.5)
[2024-05-16 05:25] LABS: Alanine Aminotransferase < 5 U/L (0-41); Albumin Level 3.6 g/dL (3.5-5.2); Alkaline Phosphatase 71 U/L (40-130); Aspartate Amino Transferase 22 U/L (0-40); Calcium 8.2 mg/dL (8.5-10.5); Carbon Dioxide 27 mmol/L (22-29); Chloride 103 mmol/L (98-107); Creatinine Clr Calc Pharmacy 23.8132; Ferritin 139 ng/mL (30-400); Globulin 1.8 g/dL (1.3-4.6); Glucose 90 mg/dL (65-115); Magnesium 2.5 mg/dL (1.7-2.3); Osmolality Calculated 317 mOsm/kg (285-295); Phosphorus 5.2 mg/dL (2.5-4.5); Sodium 140 mmol/L (136-145); Total Bilirubin 0.5 mg/dL (0.15-1.2); Total Protein 5.4 g/dL (6.6-8.7)
[2024-05-16 05:26] LABS: Anion Gap 14.4 (5-19); Parathyroid Hormone 143.6 pg/mL (15-65); Potassium 4.4 mmol/L (3.5-5.1)
[2024-05-16 05:27] LABS: Blood Urea Nitrogen 89 mg/dL (8-23)
[2024-05-16 05:36] LABS: 25 Hydroxy Vitamin D 21 ng/mL (30-100)
[2024-05-16] MEDS: sucralfate 1 gm Tablet PO ×4 (06:18→21:12)
--- NOTE | 2024-05-16 07:55 | P.PN_ITS ---
Subjective 2 Subjective: The patient was seen and examined this morning. The patient started dialysis yesterday and his breathing is improved. He is still swollen. Patient remains weak and has poor appetite. Denies nausea. He has some itching. Medications: Reviewed: Yes Medication Review Details: Current Medications Acetaminophen (Acetaminophen 325 Mg Tablet) 650 mg PO Q6H PRN PRN Reason: MILD PAIN Acetylcysteine (Acetylcysteine 200 Mg/Ml Mdv 10 Ml) 200 mg INHALATION Q6H.RESP COUNTS INCLUDE 234 BEDS AT THE [facility] Last Admin: 05/16/24 01:20 Dose: 200 mg Albuterol/Ipratropium (Ipratropium-Albuterol 3 Ml Neb) 3 ml INHALATION Q6H.RESP AMANDA Last Admin: 05/16/24 01:20 Dose: 3 ml Albuterol/Ipratropium (Ipratropium-Albuterol 3 Ml Neb) 3 ml INHALATION Q6H PRN PRN Reason: SHORTNESS OF BREATH Last Admin: 05/09/24 15:49 Dose: 3 ml Allopurinol (Allopurinol 100 Mg Tablet) 100 mg PO DAILY AMANDA Last Admin: 05/15/24 09:30 Dose: 100 mg Amiodarone HCl (Amiodarone 200 Mg Tablet) 400 mg PO BID AMANDA Last Admin: 05/15/24 17:53 Dose: 400 mg Apixaban (Apixaban 5 Mg Tablet) 2.5 mg PO BID@0900,2100 COUNTS INCLUDE 234 BEDS AT THE [facility] Last Admin: 05/10/24 09:45 Dose: Not Given Atorvastatin Calcium (Atorvastatin 40 Mg Tablet) 40 mg PO BEDTIME COUNTS INCLUDE 234 BEDS AT THE [facility] Last Admin: 05/15/24 21:07 Dose: 40 mg Bumetanide (Bumetanide 0.25 Mg/Ml Sdv 10 Ml) 2 mg IVP Q8H COUNTS INCLUDE 234 BEDS AT THE [facility] Last Admin: 05/12/24 03:41 Dose: 2 mg Carbidopa/Levodopa (Carbidopa-Levodopa 25-100mg Tablet) 0.5 each PO TID COUNTS INCLUDE 234 BEDS AT THE [facility] Last Admin: 05/15/24 21:07 Dose: 0.5 each Clopidogrel Bisulfate (Clopidogrel 75 Mg Tablet) 75 mg PO DAILY COUNTS INCLUDE 234 BEDS AT THE [facility] Last Admin: 05/12/24 08:08 Dose: 75 mg Collagenase (Collagenase Oint 30 Gm) 1 applic TOPICAL DAILY COUNTS INCLUDE 234 BEDS AT THE [facility] Last Admin: 05/15/24 11:58 Dose: 1 applic Diltiazem HCl (Diltiazem 30 Mg Tablet) 30 mg PO QID COUNTS INCLUDE 234 BEDS AT THE [facility] Last Admin: 05/10/24 09:31 Dose: 30 mg Docusate Sodium (Docusate Sodium 100 Mg Capsule) 100 mg PO BID COUNTS INCLUDE 234 BEDS AT THE [facility] Last Admin: 05/15/24 17:53 Dose: 100 mg Doxycycline Monohydrate (Doxycycline 100 Mg Tablet) 100 mg PO BID COUNTS INCLUDE 234 BEDS AT THE [facility]; Protocol Last Admin: 05/15/24 17:53 Dose: 100 mg Ferrous Sulfate (Ferrous Sulfate Ec 325 Mg Tablet) 325 mg PO BIDWM COUNTS INCLUDE 234 BEDS AT THE [facility] Last Admin: 05/13/24 09:58 Dose: 325 mg Finasteride (Finasteride 5 Mg Tablet) 5 mg PO BEDTIME COUNTS INCLUDE 234 BEDS AT THE [facility] Last Admin: 05/15/24 21:07 Dose: 5 mg Guaifenesin (Guaifenesin 600 Mg Tablet) 600 mg PO BID COUNTS INCLUDE 234 BEDS AT THE [facility] Last Admin: 05/15/24 17:53 Dose: 600 mg Norepinephrine Bitartrate (Levophed) 4 mg in 250 mls @ 0 mls/hr IV .Q0M PRN; Protocol PRN Reason: MAP less than 65 Last Titration: 05/13/24 08:40 Dose: 0 mcg/min, 0 mls/hr Dextrose (D10w) 125 mls @ 750 mls/hr IV PRN PRN PRN Reason: HYPOGLYCEMIA Last Infusion: 05/12/24 10:53 Dose: Infused Sodium Chloride (Sodium Chloride 0.9%) 1,000 mls @ 0 mls/hr IV .Q0M PRN PRN Reason: hypotension or symptomatic Albumin Human (Albumin) 12.5 gm in 50 mls @ 60 mls/hr IV PRN PRN PRN Reason: Hypotension and/or symptomatic Last Infusion: 05/15/24 16:06 Dose: Infused Lactobacillus Acidophilus (Lactobacillus 1 Tablet) 2 tab PO BID COUNTS INCLUDE 234 BEDS AT THE [facility] Last Admin: 05/15/24 17:52 Dose: 2 tab Lactulose (Lactulose Oral Liq 20 Gm/30 Ml Udc) 10 gm PO DAILY PRN PRN Reason: Constipation Morphine Sulfate (Morphine 4 Mg/Ml Sdv 1 Ml) 2 mg IVP Q4H PRN PRN Reason: SHORTNESS OF BREATH Last Admin: 05/16/24 04:34 Dose: 2 mg Ondansetron HCl (Ondansetron 2 Mg/Ml Sdv 2 Ml) 4 mg IVP Q6H PRN PRN Reason: NAUSEA AND VOMITING Pantoprazole Sodium (Pantoprazole 40 Mg Sdv) 40 mg IVP BID COUNTS INCLUDE 234 BEDS AT THE [facility] Last Admin: 05/15/24 17:53 Dose: 40 mg Ranolazine (Ranolazine (12hr) 500 Mg Tablet) 500 mg PO BID COUNTS INCLUDE 234 BEDS AT THE [facility] Last Admin: 05/15/24 17:53 Dose: 500 mg Ropinirole HCl (Ropinirole 2 Mg Tablet) 1 mg PO QPM COUNTS INCLUDE 234 BEDS AT THE [facility] Last Admin: 05/12/24 17:13 Dose: 1 mg Senna (Sennosides 8.6 Mg Tablet) 17.2 mg PO BEDTIME COUNTS INCLUDE 234 BEDS AT THE [facility] Last Admin: 05/15/24 21:07 Dose: 17.2 mg Senna/Docusate Sodium (Sennosides-Docusate Tablet) 1 tab PO DAILY COUNTS INCLUDE 234 BEDS AT THE [facility] Last Admin: 05/15/24 09:32 Dose: Not Given Sucralfate (Sucralfate 1 Gm Tablet) 1 gm PO AC&BEDTIME COUNTS INCLUDE 234 BEDS AT THE [facility] Last Admin: 05/16/24 06:18 Dose: 1 gm Tamsulosin HCl (Tamsulosin 0.4 Mg Capsule) 0.4 mg PO DAILY COUNTS INCLUDE 234 BEDS AT THE [facility] Last Admin: 05/15/24 09:31 Dose: 0.4 mg Vitals/I&O/Wt Last Vital Signs Temp 98.2 F 05/16/24 06:00 Pulse 84 05/16/24 06:00 Resp 20 H 05/16/24 06:00 BP 113/64 05/16/24 06:00 Pulse Ox 94 05/16/24 06:00 O2 Del Method BiPAP 05/16/24 01:27 O2 Flow Rate 4 05/15/24 20:48 FiO2 30 05/16/24 04:00 05/15/24 05/16/24 05/16/24 22:59 06:59 14:59 Intake Total 910 / 1010 60 / 1070 Output Total 2405 / 2580 150 / 2730 Balance -1495 / -1570 -90 / -1660 Weight last 48 hrs Weight 91.5 kg Weight 91 kg Weight 92.079 kg Physical Exam 2 Narrative: Elderly man in bed. Vital signs noted. Patient remains in a paced rhythm HEENT normocephalic/atraumatic. Neck is supple, positive right IJ permacath. Lungs dull bases. Heart-paced rhythm. Systolic murmur Abdomen is soft positive bowel sounds. Extremities still have bilateral edema. Skin tears and edema. Urinary Catheter Management: Squires: Cath Placed During This Visit: yes Reason for Continuing Indwelling Catheter: Accurate Measurement of Urinary Output in Critically Ill Patients Urinary Catheter Date of Insertion: 05/09/24 Urinary Catheter Time of Insertion: 14:29 Data 05/16/24 04:18 05/16/24 04:18 Micro: Microbiology 05/12/24 12:33 Gram Stain - Final Sputum - Expectorated Sputum Sputum Culture - Final Mirian albicans A&P Assessment and plan (1) Acute kidney injury superimposed on chronic kidney disease: 89-year-old gentleman with A-fib, heart failure preserved EF, GI bleed, acute on chronic renal failure. Patient has responded to diuretics. Blood pressure remains on the low side. Case was discussed between my colleague Dr. spain and the hospitalist and cardiology. The decision was to proceed with dialysis to help remove fluids. The patient started dialysis yesterday. The patient is feeling better. I will repeat fluid removal with UF today. Will decrease Bumex. I would also consider holding Eliquis and consider tapping pleural effusion. Anemia management iron saturation is low at 17 ferritin 157-start IV iron. Use Epogen, and also may need IV iron. Renal bone mineral metabolism: Vitamin D levels low at 21 will give vitamin D. PTH is 143 will monitor. Phosphorus is 5.2 monitor and may need a binder. Will monitor I's and O's Daily and chemistries and assess for needs of dialysis. Patient was seen and examined using A/V equipment via a telehealth visit. The nurse examined the patient. Consent for telehealth and for hemodialysis was obtained from the patient and his family. Plan see above Attestations 2 Medical Necessity Statement*: Volume overload, acute kidney injury. Shortness of breath requiring initiation of dialysis Time Spent in Patient Care: 16 - 35 minutes (>than 50% of time sp ent in counselling and/or direct pt care on unit) . Coding Level of Care Code Acute Code for Chg Fwd Diagnoses Acute kidney injury superimposed on chronic kidney disease N17.9; N18.9
[2024-05-16] MEDS: amiodarone 200 mg Tablet 400 MG PO ×2 (08:39→17:16)
[2024-05-16] MEDS: lactobacillus 1 Tablet 2 TAB PO ×2 (08:39→17:16)
[2024-05-16] MEDS: ranolazine (12HR) 500 mg Tablet PO ×2 (08:39→17:16)
[2024-05-16] MEDS: docusate sodium 100 mg Capsule PO ×2 (08:39→17:16)
[2024-05-16] MEDS: doxycycline 100 mg Tablet PO ×2 (08:39→17:16)
[2024-05-16] MEDS: allopurinol 100 mg Tablet PO (08:39)
[2024-05-16] MEDS: sennosides-docusate Tablet 1 TAB PO (08:39)
[2024-05-16] MEDS: guaiFENesin 600 mg Tablet PO ×2 (08:39→17:16)
[2024-05-16] MEDS: carbidopa-levodopa 25-100mg Tablet 0.5 EACH PO ×3 (08:39→21:12)
[2024-05-16] MEDS: tamsulosin 0.4 mg Capsule PO (08:39)
[2024-05-16] MEDS: pantoprazole 40 mg SDV IVP ×2 (08:40→17:16)
[2024-05-16] MEDS: ondansetron 2 mg/ML SDV 2 mL 4 MG IVP (09:28)
[2024-05-16] MEDS: ergocalciferol (vitamin D2) 50,000 Unit Capsule 50000 UNIT PO (10:13)
--- NOTE | 2024-05-16 12:09 | PC.SOCIAL ---
IMM Update Pg. 2 of IMM updated and reviewed with patient's , who verbalized understanding. Copy provided.
--- NOTE | 2024-05-16 13:17 | P.PN_ITS ---
Subjective 2 Subjective: Plan for ultrafiltration today Hemoglobin stable at 8.4 Patient notes feeling better Currently on 5 L nasal cannula Had a bowel movement yesterday Patient was nauseous Past x-ray showed pulm edema Hematuria improved with manual irrigation Vitals/I&O/Wt Last Vital Signs Temp 97.5 F L 05/16/24 08:00 Pulse 95 05/16/24 13:14 Resp 16 05/16/24 13:14 BP 106/60 05/16/24 12:00 Pulse Ox 99 05/16/24 13:14 O2 Del Method Nasal Cannula 05/16/24 13:14 O2 Flow Rate 4 05/16/24 13:14 FiO2 30 05/16/24 04:00 05/15/24 05/16/24 05/16/24 22:59 06:59 14:59 Intake Total 910 / 1010 60 / 1070 480 / 480 Output Total 2405 / 2580 150 / 2730 Balance -1495 / -1570 -90 / -1660 480 / 480 Weight last 48 hrs Weight 91.5 kg Weight 91 kg Weight 92.079 kg Physical Exam 2 Narrative: Awake and alert Sign of fluid load improving Currently 5 L Pleasant cooperative Eating breakfast Became nauseous after eating Pleasant and cooperative Family at the bedside Squires catheter with nonhematuric urine Urinary Catheter Management: Squires: Cath Placed During This Visit: yes Reason for Continuing Indwelling Catheter: Accurate Measurement of Urinary Output in Critically Ill Patients Urinary Catheter Date of Insertion: 05/09/24 Urinary Catheter Time of Insertion: 14:29 Data 05/16/24 04:18 05/16/24 04:18 Micro: Microbiology 05/12/24 12:33 Gram Stain - Final Sputum - Expectorated Sputum Sputum Culture - Final Mirian albicans A&P Assessment and plan (1) Diastolic CHF: Qualifiers: Heart failure chronicity: acute on chronic Qualified Code(s): I50.33 - Acute on chronic diastolic (congestive) heart failure (2) Acute on chronic diastolic heart failure: (3) Aortic stenosis: Qualifiers: Cardiac valve disease etiology: nonrheumatic Qualified Code(s): I35.0 - Nonrheumatic aortic (valve) stenosis (4) Peripheral arterial disease: (5) Atrial fibrillation: Qualifiers: Atrial fibrillation type: persistent (not longstanding) Qualified Code(s): I48.19 - Other persistent atrial fibrillation (6) Chronic anticoagulation: (7) Constipation: (8) GI bleeding: (9) Acute kidney injury superimposed on chronic kidney disease: (10) BPH (benign prostatic hyperplasia): Qualifiers: Lower urinary tract symptom presence: symptoms present Lower urinary tract symptom detail: urinary hesitancy Qualified Code(s): N40.1 - Benign prostatic hyperplasia with lower urinary tract symptoms; R39.11 - Hesitancy of micturition (11) Acute blood loss anemia: (12) Cellulitis: (13) RLS (restless legs syndrome): (14) On home oxygen therapy: (15) COPD with acute exacerbation: (16) SHARON (obstructive sleep apnea): (17) Lower extremity edema: Plan Acute diastolic CHF exacerbation Plan for ultrafiltration today Fluid overloaded worsening likely 2 bags of albumin contributed with a lot of sodium load with underlying CHF Acute on chronic kidney disease: Nonoliguric For session of dialysis 05/15, ultrafiltration 05/16 dialysis catheter placement 05/15 Acute GI blood loss anemia Status post EGD 05/14 which showed gastric erosion/gastritis Patient also has hematuria Hematuria started 05/13 resolved 05/15 Most likely active source of anemia seems to be GI blood loss Status post 2 units PRBC First unit was given on admission, second unit given 05/13 A-fib without RVR Off Eliquis and Plavix Secondary to hematuria and GI blood loss Low extremity edema related to diastolic CHF Applying topical bacitracin, Santyl with daily dressing change Right common iliac stenosis, 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 planned as per cardiology As per the family 2017 at [facility] attempt was made however they were not able to revascularize Patient has been on Plavix and atorvastatin Plavix on hold Constipation: Constipation resolved, Intermittent chest pain Patient takes nitroglycerin which improved his pain He gets antianginal medications Cardiology recommended medical management, previous angiogram showed patent stents atherosclerotic disease which was not amenable to intervention Continue ICU management Full code Start renal nondialysis diet Full code Resting tremors patient takes carbidopa levodopa Hypoxia:- at home uses 2 L currently on 4L Attestations 2 Medical Necessity Statement*: Continue ICU management Diagnoses Acute on chronic diastolic congestive heart failure I50.33 Heart failure chronicity: acute on chronic Acute on chronic diastolic heart failure I50.33 Nonrheumatic aortic valve stenosis I35.0 Cardiac valve disease etiology: nonrheumatic Peripheral arterial disease I73.9 Persistent atrial fibrillation I48.19 Atrial fibrillation type: persistent (not longstanding) Chronic anticoagulation Z79.01 Constipation K59.00 GI bleeding K92.2 Acute kidney injury superimposed on chronic kidney disease N17.9; N18.9 Benign prostatic hyperplasia with urinary hesitancy N40.1; R39.11 Lower urinary tract symptom presence: symptoms present Lower urinary tract symptom detail: urinary hesitancy Acute blood loss anemia D62 Cellulitis L03.90 RLS (restless legs syndrome) G25.81 On home oxygen therapy Z99.81 COPD with acute exacerbation J44.1 SHARON (obstructive sleep apnea) G47.33 Lower extremity edema R60.0
--- NOTE | 2024-05-16 15:41 | PM.PN ---
Subjective Subjective: Patient had the dialysis yesterday. Undergoing ultrafiltration today. Denies any chest pain. No unusual shortness of breath. Vitals are remaining stable. Medications: Medication Review Details: Current Medications Acetaminophen (Acetaminophen 325 Mg Tablet) 650 mg PO Q6H PRN PRN Reason: MILD PAIN Acetylcysteine (Acetylcysteine 200 Mg/Ml Mdv 10 Ml) 200 mg INHALATION Q6H.RESP [facility] Last Admin: 05/16/24 13:14 Dose: 200 mg Albuterol/Ipratropium (Ipratropium-Albuterol 3 Ml Neb) 3 ml INHALATION Q6H.RESP [facility] Last Admin: 05/16/24 13:14 Dose: 3 ml Albuterol/Ipratropium (Ipratropium-Albuterol 3 Ml Neb) 3 ml INHALATION Q6H PRN PRN Reason: SHORTNESS OF BREATH Last Admin: 05/09/24 15:49 Dose: 3 ml Allopurinol (Allopurinol 100 Mg Tablet) 100 mg PO DAILY [facility] Last Admin: 05/16/24 08:39 Dose: 100 mg Amiodarone HCl (Amiodarone 200 Mg Tablet) 400 mg PO BID [facility] Last Admin: 05/16/24 08:39 Dose: 400 mg Apixaban (Apixaban 5 Mg Tablet) 2.5 mg PO BID@0900,2100 [facility] Last Admin: 05/10/24 09:45 Dose: Not Given Atorvastatin Calcium (Atorvastatin 40 Mg Tablet) 40 mg PO BEDTIME [facility] Last Admin: 05/15/24 21:07 Dose: 40 mg Bumetanide (Bumetanide 0.25 Mg/Ml Sdv 10 Ml) 2 mg IVP BID [facility] Carbidopa/Levodopa (Carbidopa-Levodopa 25-100mg Tablet) 0.5 each PO TID [facility] Last Admin: 05/16/24 15:28 Dose: 0.5 each Clopidogrel Bisulfate (Clopidogrel 75 Mg Tablet) 75 mg PO DAILY [facility] Last Admin: 05/12/24 08:08 Dose: 75 mg Collagenase (Collagenase Oint 30 Gm) 1 applic TOPICAL DAILY [facility] Last Admin: 05/16/24 08:40 Dose: Not Given Diltiazem HCl (Diltiazem 30 Mg Tablet) 30 mg PO QID [facility] Last Admin: 05/10/24 09:31 Dose: 30 mg Docusate Sodium (Docusate Sodium 100 Mg Capsule) 100 mg PO BID [facility] Last Admin: 05/16/24 08:39 Dose: 100 mg Doxycycline Monohydrate (Doxycycline 100 Mg Tablet) 100 mg PO BID [facility]; Protocol Last Admin: 05/16/24 08:39 Dose: 100 mg Ergocalciferol (Ergocalciferol (Vitamin D2) 50,000 Unit Capsule) 50,000 unit PO Q7D [facility] Last Admin: 05/16/24 10:13 Dose: 50,000 unit Ferrous Sulfate (Ferrous Sulfate Ec 325 Mg Tablet) 325 mg PO BIDWM [facility] Last Admin: 05/13/24 09:58 Dose: 325 mg Finasteride (Finasteride 5 Mg Tablet) 5 mg PO BEDTIME [facility] Last Admin: 05/15/24 21:07 Dose: 5 mg Guaifenesin (Guaifenesin 600 Mg Tablet) 600 mg PO BID [facility] Last Admin: 05/16/24 08:39 Dose: 600 mg Norepinephrine Bitartrate (Levophed) 4 mg in 250 mls @ 0 mls/hr IV .Q0M PRN; Protocol PRN Reason: MAP less than 65 Last Titration: 05/13/24 08:40 Dose: 0 mcg/min, 0 mls/hr Dextrose (D10w) 125 mls @ 750 mls/hr IV PRN PRN PRN Reason: HYPOGLYCEMIA Last Infusion: 05/12/24 10:53 Dose: Infused Sodium Chloride (Sodium Chloride 0.9%) 1,000 mls @ 0 mls/hr IV .Q0M PRN PRN Reason: hypotension or symptomatic Lactobacillus Acidophilus (Lactobacillus 1 Tablet) 2 tab PO BID [facility] Last Admin: 05/16/24 08:39 Dose: 2 tab Lactulose (Lactulose Oral Liq 20 Gm/30 Ml Udc) 10 gm PO DAILY PRN PRN Reason: Constipation Ondansetron HCl (Ondansetron 2 Mg/Ml Sdv 2 Ml) 4 mg IVP Q6H PRN PRN Reason: NAUSEA AND VOMITING Last Admin: 05/16/24 09:28 Dose: 4 mg Pantoprazole Sodium (Pantoprazole 40 Mg Sdv) 40 mg IVP BID [facility] Last Admin: 05/16/24 08:40 Dose: 40 mg Ranolazine (Ranolazine (12hr) 500 Mg Tablet) 500 mg PO BID [facility] Last Admin: 05/16/24 08:39 Dose: 500 mg Ropinirole HCl (Ropinirole 2 Mg Tablet) 1 mg PO QPM [facility] Last Admin: 05/12/24 17:13 Dose: 1 mg Senna (Sennosides 8.6 Mg Tablet) 17.2 mg PO BEDTIME [facility] Last Admin: 05/15/24 21:07 Dose: 17.2 mg Senna/Docusate Sodium (Sennosides-Docusate Tablet) 1 tab PO DAILY [facility] Last Admin: 05/16/24 08:39 Dose: 1 tab Sucralfate (Sucralfate 1 Gm Tablet) 1 gm PO AC&BEDTIME [facility] Last Admin: 05/16/24 10:13 Dose: 1 gm Tamsulosin HCl (Tamsulosin 0.4 Mg Capsule) 0.4 mg PO DAILY [facility] Last Admin: 05/16/24 08:39 Dose: 0.4 mg Vitals/I&O/Wt Last Vital Signs Temp 97.5 F L 05/16/24 08:00 Pulse 95 05/16/24 13:14 Resp 16 05/16/24 13:14 BP 106/60 05/16/24 12:00 Pulse Ox 99 05/16/24 13:14 O2 Del Method Nasal Cannula 05/16/24 13:14 O2 Flow Rate 4 05/16/24 13:14 FiO2 30 05/16/24 04:00 05/16/24 05/16/24 05/16/24 06:59 14:59 22:59 Intake Total 60 / 1070 480 / 480 Output Total 150 / 2730 Balance -90 / -1660 480 / 480 Weight last 48 hrs Weight 201 lb 11.567 oz Weight 200 lb 9.93 oz Weight 203 lb Physical Exam Narrative: GENERAL: The patient is alert and oriented x 3. Not in any acute distress. HEENT: Minimal pallor. No icterus or lymphadenopathy.Oral cavity: There are no mucous membrane lesions. NECK: Trachea appears to be central. No masses noted. No JVD or thyromegaly appreciated. RESPIRATORY: Scattered diffuse expiratory wheezing and coarse crackles bilaterally BREASTS: Deferred. HEART: The heart sounds are normal. No S3 or S4. Short systolic murmur in the left renal border. No pericardial rub ABDOMEN: No vessel pulsations or distention. No tenderness. No organomegaly appreciated. Bowel sounds are normally heard. : Deferred. RECTAL: Deferred. LYMPHATIC: No lymphadenopathy noted in the neck. EXTREMITIES: 1+ edema both lower extremities. Some weeping ulcers on the anterior aspect of the right leg, clinically improving MUSCULOSKELETAL: No acute joint deformities or swelling SKIN: There are no significant rashes or ecchymosis. Features of chronic venous stasis and stasis dermatitis especially on the left leg. Small superficial ulcers in the right leg. NEUROPSYCHIATRIC: The patient is alert and oriented x3. Not in any distress. Urinary Catheter Management: Squires: Cath Placed During This Visit: yes Reason for Continuing Indwelling Catheter: Accurate Measurement of Urinary Output in Critically Ill Patients Urinary Catheter Date of Insertion: 05/09/24 Urinary Catheter Time of Insertion: 14:29 Data 05/16/24 04:18 05/16/24 04:18 Other Labs: Laboratory Last Values WBC 10.48 10^3/uL (3.29-11.43) 05/16/24 04:18 RBC 2.66 10^6/uL (3.85-5.65) L 05/16/24 04:18 Hgb 8.40 g/dL (11.27-16.99) L 05/16/24 04:18 Hct 27.2 % (37-53) L 05/16/24 04:18 MCV 102.3 fl (82-101) H 05/16/24 04:18 MCH 31.6 pg (27-33) 05/16/24 04:18 MCHC 30.9 g/dL (30-55) 05/16/24 04:18 RDW 21.3 % (12.1-15.1) H 05/16/24 04:18 Plt Count 144 10^3/cmm (157-399) L 05/16/24 04:18 MPV 9.5 fL (7.4-10.4) 05/16/24 04:18 Neut % (Auto) 84.0 % 05/16/24 04:18 Lymph % (Auto) 4.0 % 05/16/24 04:18 [place] % (Auto) 10.9 % 05/16/24 04:18 Eos % (Auto) 0.5 % 05/16/24 04:18 Baso % (Auto) 0.0 % 05/16/24 04:18 Neut # (Auto) 8.81 10^3/uL (1.8-7.7) H 05/16/24 04:18 Lymph # (Auto) 0.4 10^3/uL (0.8-4.8) L 05/16/24 04:18 [place] # (Auto) 1.1 10^3/uL (0.2-0.9) H 05/16/24 04:18 Eos # (Auto) 0.1 10^3/uL (0.0-0.8) 05/16/24 04:18 Baso # (Auto) 0.0 10^3/uL (0.0-0.1) 05/16/24 04:18 Nucleated RBC % (auto) 0 % 05/16/24 04:18 Nucleated RBCs # 0.0 /100WBC 05/16/24 04:18 PT 22.80 SECONDS (12.1-14.9) H 05/09/24 15:45 INR 1.93 (0.8-1.2) H 05/09/24 15:45 APTT 47.3 SECONDS (23.9-36.7) H 05/09/24 15:45 Specimen Type Arterial 05/10/24 04:13 Sample Site Radial, right 05/10/24 04:13 ABG pH 7.45 (7.35-7.45) 05/10/24 04:13 ABG pCO2 33.6 mmHg (35-45) L 05/10/24 04:13 ABG pO2 64.4 mmHg (80.0-100.0) L 05/10/24 04:13 ABG PO2/FiO2 Ratio 0 05/10/24 04:13 ABG HCO3 23.2 mmol/L (22-26) 05/10/24 04:13 ABG O2 Saturation 99.5 05/09/24 09:50 ABG Base Excess -0.6 mmol/L (-2.0-2.0) 05/10/24 04:13 [place] Test Pos 05/10/24 04:13 A-a O2 Gradient 13.1 mmHg (5-10) H 05/09/24 09:50 Hematocrit 25.3 % (42-52) L 05/10/24 04:13 Hgb O2 Saturation 95.5 % (95-100) 05/09/24 09:50 Carboxyhemoglobin 3.7 %THgb (0.4-20.1) 05/09/24 09:50 Methemoglobin 0.4 % (0.4-1.5) 05/09/24 09:50 Total Hemoglobin 7.2 g/dL (14-18) L 05/09/24 09:50 Sodium 132.0 mmol/L (131-143) 05/09/24 09:50 Potassium 4.7 mmol/L (3.5-5.0) 05/09/24 09:50 Glucose 97.0 mg/dL (70-115) 05/09/24 09:50 Ionized Calcium 1.2 mmol/L (1.1-1.4) 05/09/24 09:50 O2 Delivery Device Bipap 05/10/24 04:13 O2 Liters/Min 4.0 % 05/09/24 09:50 FiO2 30.0 % 05/10/24 04:13 Tidal Volume 0.40 05/10/24 04:13 [employer] [place] 05/10/24 04:13 Sodium 140 mmol/L (136-145) 05/16/24 04:18 Potassium 4.4 mmol/L (3.5-5.1) 05/16/24 04:18 Chloride 103 mmol/L (98-107) 05/16/24 04:18 Carbon Dioxide 27 mmol/L (22-29) 05/16/24 04:18 Anion Gap 14.4 (5-19) 05/16/24 04:18 BUN 89 mg/dL (8-23) H* 05/16/24 04:18 Creatinine 2.4 mg/dL (0.7-1.2) H 05/16/24 04:18 GFR Calculation Not Reportable 05/16/24 04:18 Glucose 90 mg/dL (65-115) 05/16/24 04:18 POC Glucose 136 mg/dL (70-110) H 05/12/24 11:27 Calculated Osmolality 317 mOsm/kg (285-295) H 05/16/24 04:18 Lactic Acid 1.6 mmol/L (0.5-2.2) 05/09/24 09:58 Uric Acid 11.9 mg/dL (3.4-7.0) H 05/09/24 09:58 Calcium 8.2 mg/dL (8.5-10.5) L 05/16/24 04:18 Phosphorus 5.2 mg/dL (2.5-4.5) H 05/16/24 04:18 Magnesium 2.5 mg/dL (1.7-2.3) H 05/16/24 04:18 Iron 55 ug/dL (59-158) L 05/09/24 09:58 TIBC 315 mcg/dl 05/09/24 09:58 % Saturation 17.4 % (20-50) L 05/09/24 09:58 Unsat Iron Binding 260 ug/dL (112-347) 05/09/24 09:58 Ferritin 139 ng/mL (30-400) 05/16/24 04:18 Total Bilirubin 0.5 mg/dL (0.15-1.2) 05/16/24 04:18 AST 22 U/L (0-40) 05/16/24 04:18 ALT < 5 U/L (0-41) 05/16/24 04:18 Alkaline Phosphatase 71 U/L (40-130) 05/16/24 04:18 Troponin T Baseline 74 ng/L (0-15) H 05/09/24 09:58 Troponin T 120 Minute 72.15 ng/L (0-15) H 05/09/24 13:05 Delta Troponin T -1.85 ABS# (0-10) L 05/09/24 13:05 Troponin T Hi Sens 6Hr 61.14 ng/L (0-15) H 05/09/24 15:45 Troponin T Hi Sens 6Hr Delta -12.86 ng/L (0-12) L 05/09/24 15:45 C-Reactive Protein 26.9 mg/L (0.0-4.9) H 05/09/24 09:58 NT-Pro-B Natriuret Pep 2199 pg/mL (0-450) H 05/09/24 09:58 Total Protein 5.4 g/dL (6.6-8.7) L 05/16/24 04:18 Albumin 3.6 g/dL (3.5-5.2) 05/16/24 04:18 Globulin 1.8 g/dL (1.3-4.6) 05/16/24 04:18 25-OH Vitamin D Total 21 ng/mL (30-100) L 05/16/24 04:18 PTH Intact 143.6 pg/mL (15-65) H 05/16/24 04:18 Calcium (PTH Intact) 8.2 mg/dL (8.5-10.5) L 05/16/24 04:18 Urine Color Yellow (Yellow) 05/09/24 14:27 Urine Appearance Clear (CLEAR) 05/09/24 14:27 Urine pH 5 (5-7) 05/09/24 14:27 Ur Specific [place] 1.020 (1.005-1.030) 05/09/24 14:27 Urine Protein Trace (Negative) 05/09/24 14:27 Urine Glucose (UA) Norm (Normal) 05/09/24 14:27 Urine Ketones 1+ (Negative) H 05/09/24 14:27 Urine Blood Neg (Negative) 05/09/24 14:27 Urine Nitrate Negative (Negative) 05/09/24 14:27 Urine Bilirubin Neg (Negative) 05/09/24 14:27 Urine Urobilinogen Neg mg/dL (Negative) 05/09/24 14:27 Ur Leukocyte Esterase Negative (Negative) 05/09/24 14:27 Urine RBC Rare /hpf (0-2) 05/09/24 14:27 Urine WBC 0-4 /hpf (0-5) H 05/09/24 14:27 Ur Squamous Epith Cells 0-4 /hpf (0-5) H 05/09/24 14:27 Ur Transition Epith Cell 0-4 /hpf 05/09/24 14:27 Amorphous Sediment Not Reportable 05/09/24 14:27 Urine Bacteria 1+ /hpf (NONE) H 05/09/24 14:27 Hyaline Casts 15-25 /lpf H 05/09/24 14:27 Urine Mucus Trace /hpf 05/09/24 14:27 Ur Random Microalbumin 49 ug/dL (0-20) H 05/12/24 13:17 Ur Random Sodium 28 mmol/L 05/12/24 13:17 Ur Random Chloride 34 mmol/L 05/12/24 13:17 Urine Creatinine 60 mg/dL (39-259) 05/12/24 13:17 Microalb/Creat Ratio 817 mg/dL (0-20) H 05/12/24 13:17 Adenovirus (PCR) Not detected (NOT DETECT) 05/09/24 10:00 C. pneumoniae DNA (PCR) Not detected (NOT DETECT) 05/09/24 10:00 Coronavirus 229E (PCR) Not detected (NOT DETECT) 05/09/24 10:00 Hep Bs Antigen Non-reactive (Nonreactive) 05/15/24 09:20 Hep Bs Antibody < 3.5 (11.5-1000) L 05/15/24 09:20 Human Metapneumovir PCR Not detected (NOT DETECT) 05/09/24 10:00 Influenza A (H1) PCR Not detected (NOT DETECT) 05/09/24 10:00 Influ A (H1/09) PCR Not detected (NOT DETECT) 05/09/24 10:00 Influenza A (H3) PCR Not detected (NOT DETECT) 05/09/24 10:00 Influenza Type A (PCR) Not detected (NOT DETECT) 05/09/24 10:00 Influenza Type B (PCR) Not detected (NOT DETECT) 05/09/24 10:00 M. pneumoniae (PCR) Not detected (NOT DETECT) 05/09/24 10:00 Parainfluenza 1 (PCR) Not detected (NOT DETECT) 05/09/24 10:00 Parainfluenza 2 (PCR) Not detected (NOT DETECT) 05/09/24 10:00 Parainfluenza 3 (PCR) Not detected (NOT DETECT) 05/09/24 10:00 Parainfluenza 4 (PCR) Not detected (NOT DETECT) 05/09/24 10:00 RSV Type A (PCR) Not detected (NOT DETECT) 05/09/24 10:00 RSV Type B (PCR) Not detected (NOT DETECT) 05/09/24 10:00 Entero/Rhino (PCR) Not detected (NOT DETECT) 05/09/24 10:00 SARS-CoV-2 (PCR) Not detected (NOT DETECT) 05/09/24 10:00 Blood Type O Positive 05/13/24 13:30 Rho(D) Type Rh positive 05/13/24 13:30 Antibody Screen Negative 05/13/24 13:30 Crossmatch See Detail 05/13/24 13:30 Micro: Microbiology 05/12/24 12:33 Gram Stain - Final Sputum - Expectorated Sputum Sputum Culture - Final Mirian albicans A&P Assessment and plan (1) Atherosclerotic heart disease of [place] coronary artery with unstable angina pectoris: Patient seems to have significant improvement of the chest pain. At this point, we may continue on the current medications. If he continues to remain stable, he may not require any further investigations at this point. Qualifiers: [place] vs. transplanted heart: [place] heart Qualified Code(s): I25.110 - Atherosclerotic heart disease of [place] coronary artery with unstable angina pectoris (2) Acute kidney injury superimposed on chronic kidney disease: Patient had a hemodialysis yesterday. Getting the ultrafiltration today. Planning to have the dialysis again tomorrow. Management as per the nephrology. (3) Hypotension: The blood pressure seems to be stable, may continue on the current management. Qualifiers: Hypotension type: other hypotension type Qualified Code(s): I95.89 - Other hypotension (4) Atrial fibrillation: Patient is in atrial fibrillation with controlled ventricular response rate. May continue on the current treatment. Qualifiers: Atrial fibrillation type: persistent (not longstanding) Qualified Code(s): I48.19 - Other persistent atrial fibrillation (5) Acute on chronic diastolic heart failure: Heart failure is fairly compensated. Will continue on the current management. (6) Hyperlipidemia: May continue on the current medication Qualifiers: Hyperlipidemia type: unspecified Qualified Code(s): E78.5 - Hyperlipidemia, unspecified (7) Peripheral arterial disease: Clinically seems to be stable. May continue on the current treatment. (8) Anemia: The hemoglobin seems to be steady. The etiology is not clear. He may need further workup. Qualifiers: Anemia type: unspecified type Qualified Code(s): D64.9 - Anemia, unspecified (9) Aortic stenosis: The patient seems to have a severe low gradient aortic valve stenosis. Most likely this is a technical error. We may have to repeat the aortic in the LV outflow tract Doppler studies to reevaluate the stenosis. Qualifiers: Cardiac valve disease etiology: nonrheumatic Qualified Code(s): I35.0 - Nonrheumatic aortic (valve) stenosis Plan Continue on the current management. Patient has no ischemic symptoms at this time. Attestations Medical Necessity Statement*: Patient requires continued hospital stay for close monitoring and further management Coding Level of Care Code 16718 Diagnoses Atherosclerosis of [place] coronary artery of [place] heart with unstable angina pectoris I25.110 [place] vs. transplanted heart: [place] heart Acute kidney injury superimposed on chronic kidney disease N17.9; N18.9 Other specified hypotension I95.89 Hypotension type: other hypotension type Persistent atrial fibrillation I48.19 Atrial fibrillation type: persistent (not longstanding) Acute on chronic diastolic heart failure I50.33 Hyperlipidemia, unspecified hyperlipidemia type E78.5 Hyperlipidemia type: unspecified Peripheral arterial disease I73.9 Anemia D64.9 Anemia type: unspecified type Nonrheumatic aortic valve stenosis I35.0 Cardiac valve disease etiology: nonrheumatic
[2024-05-16] MEDS: albumin 12.5 GM/50 ML VIAL IV ×2 (18:02→18:38)
[2024-05-16] MEDS: finasteride 5 mg Tablet PO (21:12)
[2024-05-16] MEDS: atorvastatin 40 mg Tablet PO (21:12)
[2024-05-16] MEDS: sennosides 8.6 mg Tablet 17.2 MG PO (21:12)
[2024-05-17] VITALS (107 sets, daily range): BP systolic 75–139; BP diastolic 42–102; PULSE 76–101; RESP 11–25; TEMP 36.3–37; O2SAT 82–100
[2024-05-17] MEDS: ipratropium-albuterol 3 mL Neb INHALATION ×4 (02:05→19:58)
[2024-05-17] MEDS: acetylcysteine 200 mg/mL MDV 10 mL INHALATION ×4 (02:05→19:58)
[2024-05-17] MEDS: morphine 4 mg/mL SDV 1 mL 2 MG IVP ×2 (02:28→20:56)
[2024-05-17 04:58] LABS: Eosinophils % 0.4 %; Hematocrit 27.5 % (37-53); Lymphocytes # 0.4 10^3/uL (0.8-4.8); Lymphocytes % 3.6 %; Mean Corpuscular HGB Conc 30.9 g/dL (30-55); Mean Corpuscular Hemoglobin 32.2 pg (27-33); Mean Corpuscular Volume 104.2 fl (82-101); Mean Platelet Volume 9.5 fL (7.4-10.4); Monocytes # 0.9 10^3/uL (0.2-0.9); Monocytes % 9.4 %; Neutrophils # 8.28 10^3/uL (1.8-7.7); Neutrophils % 85.7 %; Nucleated Red Blood Cells % 0 %; Platelet Count 134 10^3/cmm (157-399); Red Blood Count 2.64 10^6/uL (3.85-5.65); Red Cell Distribution Width 20.9 % (12.1-15.1); White Blood Count 9.67 10^3/uL (3.29-11.43)
[2024-05-17 05:15] LABS: Alanine Aminotransferase < 5 U/L (0-41); Albumin Level 3.8 g/dL (3.5-5.2); Alkaline Phosphatase 72 U/L (40-130); Anion Gap 17.2 (5-19); Aspartate Amino Transferase 19 U/L (0-40); Calcium 8.5 mg/dL (8.5-10.5); Carbon Dioxide 26 mmol/L (22-29); Chloride 103 mmol/L (98-107); Globulin 1.7 g/dL (1.3-4.6); Glucose 103 mg/dL (65-115); Magnesium 2.6 mg/dL (1.7-2.3); Osmolality Calculated 326 mOsm/kg (285-295); Phosphorus 5.7 mg/dL (2.5-4.5); Potassium 4.2 mmol/L (3.5-5.1); Sodium 142 mmol/L (136-145); Total Bilirubin 0.6 mg/dL (0.15-1.2); Total Protein 5.5 g/dL (6.6-8.7)
[2024-05-17 05:36] LABS: Creatinine Clr Calc Pharmacy 20.7311
[2024-05-17 05:37] LABS: Blood Urea Nitrogen 101 mg/dL (8-23)
[2024-05-17] MEDS: sucralfate 1 gm Tablet PO ×4 (05:59→20:55)
[2024-05-17] MEDS: amiodarone 200 mg Tablet 400 MG PO ×2 (08:09→17:07)
[2024-05-17] MEDS: guaiFENesin 600 mg Tablet PO ×2 (08:10→17:07)
[2024-05-17] MEDS: allopurinol 100 mg Tablet PO (08:10)
[2024-05-17] MEDS: ranolazine (12HR) 500 mg Tablet PO ×2 (08:10→17:07)
[2024-05-17] MEDS: lactobacillus 1 Tablet 2 TAB PO ×2 (08:10→17:07)
[2024-05-17] MEDS: carbidopa-levodopa 25-100mg Tablet 0.5 EACH PO ×3 (08:10→20:55)
[2024-05-17] MEDS: doxycycline 100 mg Tablet PO ×2 (08:10→17:07)
[2024-05-17] MEDS: ondansetron 2 mg/ML SDV 2 mL 4 MG IVP (08:11)
[2024-05-17] MEDS: pantoprazole 40 mg SDV IVP (08:11)
[2024-05-17] MEDS: docusate sodium 100 mg Capsule PO ×2 (08:11→17:07)
[2024-05-17] MEDS: bumetanide 0.25 mg/mL SDV 10 mL 2 MG IVP (08:11)
[2024-05-17] MEDS: collagenase oint 30 gm 1 APPLIC TOPICAL (08:11)
[2024-05-17] MEDS: sennosides-docusate Tablet 1 TAB PO (08:12)
[2024-05-17] MEDS: tamsulosin 0.4 mg Capsule PO (08:12)
--- NOTE | 2024-05-17 08:27 | P.PN_ITS ---
Subjective 2 Subjective: The patient was seen and examined. He was able to walk with PT today he became winded walking to his chair but he states that much better. He states he is urinating. He is eating a little has no nausea no vomiting no itching or cramps. No diarrhea Medications: Reviewed: Yes Medication Review Details: Current Medications Acetaminophen (Acetaminophen 325 Mg Tablet) 650 mg PO Q6H PRN PRN Reason: MILD PAIN Acetylcysteine (Acetylcysteine 200 Mg/Ml Mdv 10 Ml) 200 mg INHALATION Q6H.RESP [facility] Last Admin: 05/17/24 02:05 Dose: 200 mg Albuterol/Ipratropium (Ipratropium-Albuterol 3 Ml Neb) 3 ml INHALATION Q6H.RESP [facility] Last Admin: 05/17/24 02:05 Dose: 3 ml Albuterol/Ipratropium (Ipratropium-Albuterol 3 Ml Neb) 3 ml INHALATION Q6H PRN PRN Reason: SHORTNESS OF BREATH Last Admin: 05/09/24 15:49 Dose: 3 ml Allopurinol (Allopurinol 100 Mg Tablet) 100 mg PO DAILY [facility] Last Admin: 05/17/24 08:10 Dose: 100 mg Amiodarone HCl (Amiodarone 200 Mg Tablet) 400 mg PO BID [facility] Last Admin: 05/17/24 08:09 Dose: 400 mg Apixaban (Apixaban 5 Mg Tablet) 2.5 mg PO BID@0900,2100 [facility] Last Admin: 05/10/24 09:45 Dose: Not Given Atorvastatin Calcium (Atorvastatin 40 Mg Tablet) 40 mg PO BEDTIME [facility] Last Admin: 05/16/24 21:12 Dose: 40 mg Bumetanide (Bumetanide 0.25 Mg/Ml Sdv 10 Ml) 2 mg IVP BID [facility] Last Admin: 05/17/24 08:11 Dose: 2 mg Carbidopa/Levodopa (Carbidopa-Levodopa 25-100mg Tablet) 0.5 each PO TID [facility] Last Admin: 05/17/24 08:10 Dose: 0.5 each Clopidogrel Bisulfate (Clopidogrel 75 Mg Tablet) 75 mg PO DAILY [facility] Last Admin: 05/12/24 08:08 Dose: 75 mg Collagenase (Collagenase Oint 30 Gm) 1 applic TOPICAL DAILY [facility] Last Admin: 05/17/24 08:11 Dose: 1 applic Diltiazem HCl (Diltiazem 30 Mg Tablet) 30 mg PO QID [facility] Last Admin: 05/10/24 09:31 Dose: 30 mg Docusate Sodium (Docusate Sodium 100 Mg Capsule) 100 mg PO BID [facility] Last Admin: 05/17/24 08:11 Dose: 100 mg Doxycycline Monohydrate (Doxycycline 100 Mg Tablet) 100 mg PO BID [facility]; Protocol Last Admin: 05/17/24 08:10 Dose: 100 mg Ergocalciferol (Ergocalciferol (Vitamin D2) 50,000 Unit Capsule) 50,000 unit PO Q7D [facility] Last Admin: 05/16/24 10:13 Dose: 50,000 unit Ferrous Sulfate (Ferrous Sulfate Ec 325 Mg Tablet) 325 mg PO BIDWM [facility] Last Admin: 05/13/24 09:58 Dose: 325 mg Finasteride (Finasteride 5 Mg Tablet) 5 mg PO BEDTIME [facility] Last Admin: 05/16/24 21:12 Dose: 5 mg Guaifenesin (Guaifenesin 600 Mg Tablet) 600 mg PO BID [facility] Last Admin: 05/17/24 08:10 Dose: 600 mg Norepinephrine Bitartrate (Levophed) 4 mg in 250 mls @ 0 mls/hr IV .Q0M PRN; Protocol PRN Reason: MAP less than 65 Last Titration: 05/13/24 08:40 Dose: 0 mcg/min, 0 mls/hr Dextrose (D10w) 125 mls @ 750 mls/hr IV PRN PRN PRN Reason: HYPOGLYCEMIA Last Infusion: 05/12/24 10:53 Dose: Infused Sodium Chloride (Sodium Chloride 0.9%) 1,000 mls @ 0 mls/hr IV .Q0M PRN PRN Reason: hypotension or symptomatic Lactobacillus Acidophilus (Lactobacillus 1 Tablet) 2 tab PO BID [facility] Last Admin: 05/17/24 08:10 Dose: 2 tab Lactulose (Lactulose Oral Liq 20 Gm/30 Ml Udc) 10 gm PO DAILY PRN PRN Reason: Constipation Morphine Sulfate (Morphine 4 Mg/Ml Sdv 1 Ml) 2 mg IVP Q4H PRN PRN Reason: SHORTNESS OF BREATH Last Admin: 05/17/24 02:28 Dose: 2 mg Ondansetron HCl (Ondansetron 2 Mg/Ml Sdv 2 Ml) 4 mg IVP Q6H PRN PRN Reason: NAUSEA AND VOMITING Last Admin: 05/17/24 08:11 Dose: 4 mg Pantoprazole Sodium (Pantoprazole 40 Mg Sdv) 40 mg IVP BID [facility] Last Admin: 05/17/24 08:11 Dose: 40 mg Ranolazine (Ranolazine (12hr) 500 Mg Tablet) 500 mg PO BID [facility] Last Admin: 05/17/24 08:10 Dose: 500 mg Ropinirole HCl (Ropinirole 2 Mg Tablet) 1 mg PO QPM [facility] Last Admin: 05/12/24 17:13 Dose: 1 mg Senna (Sennosides 8.6 Mg Tablet) 17.2 mg PO BEDTIME [facility] Last Admin: 05/16/24 21:12 Dose: 17.2 mg Senna/Docusate Sodium (Sennosides-Docusate Tablet) 1 tab PO DAILY [facility] Last Admin: 05/17/24 08:12 Dose: 1 tab Sucralfate (Sucralfate 1 Gm Tablet) 1 gm PO AC&BEDTIME [facility] Last Admin: 05/17/24 05:59 Dose: 1 gm Tamsulosin HCl (Tamsulosin 0.4 Mg Capsule) 0.4 mg PO DAILY [facility] Last Admin: 05/17/24 08:12 Dose: 0.4 mg Vitals/I&O/Wt Last Vital Signs Temp 97.7 F 05/17/24 06:00 Pulse 81 05/17/24 06:15 Resp 15 05/17/24 06:15 BP 122/61 05/17/24 06:15 Pulse Ox 99 05/17/24 06:15 O2 Del Method BiPAP 05/17/24 02:10 O2 Flow Rate 5 05/16/24 20:10 FiO2 30 05/17/24 04:00 05/16/24 05/17/24 05/17/24 22:59 06:59 14:59 Intake Total 950 / 1430 240 / 1670 50 / 50 Output Total 2649 / 2649 300 / 2949 Balance -1699 / -1219 -60 / -1279 50 / 50 Weight last 48 hrs Weight 89.5 kg Weight 87.5 kg Weight 91.5 kg Weight 91 kg Physical Exam 2 Narrative: Elderly man in bed. Vital signs noted. HEENT normocephalic/atraumatic. Neck is supple, positive right IJ permacath. Lungs dull bases, wheezes and crackles bilaterally. Heart-irregular rhythm well-controlled, systolic murmur Abdomen is soft positive bowel sounds. Extremities still have bilateral edema. Skin tears and edema. Urinary Catheter Management: Squires: Cath Placed During This Visit: yes Reason for Continuing Indwelling Catheter: Accurate Measurement of Urinary Output in Critically Ill Patients Urinary Catheter Date of Insertion: 05/09/24 Urinary Catheter Time of Insertion: 14:29 Data 05/17/24 03:59 05/17/24 03:59 A&P Assessment and plan (1) Acute kidney injury superimposed on chronic kidney disease: 89-year-old gentleman with A-fib, heart failure preserved EF, GI bleed, acute on chronic renal failure. Patient has responded to diuretics. Blood pressure remains on the low side. Case was discussed between my colleague Dr. spain and the hospitalist and cardiology. The decision was to proceed with dialysis to help remove fluids. The patient started dialysis on May 15, 2024. The patient had fluid removal yesterday with ultrafiltration. Today will attempt to use Bumex and monitor how he is doing. I would also consider holding Eliquis and consider tapping pleural effusion. Anemia management iron saturation is low at 17 ferritin 157-start IV iron. Use Epogen, and also may need IV iron. Renal bone mineral metabolism: Vitamin D levels low at 21 will give vitamin D. PTH is 143 will monitor. Phosphorus is 5.7: We will start a binder. Will monitor I's and O's Daily and chemistries and assess for needs of dialysis. Patient was seen and examined using A/V equipment via a telehealth visit. The nurse examined the patient. Consent for telehealth and for hemodialysis was obtained from the patient and his family. Plan see above Trial of Bumex and see if he responds if not patient will need further dialysis. Attestations 2 Medical Necessity Statement*: Volume overload acute kidney injury on chronic kidney disease severe shortness of breath. Time Spent in Patient Care: 16 - 35 minutes (>than 50% of time sp ent in counselling and/or direct pt care on unit) . Coding Level of Care Code Acute Code for Chg Fwd Diagnoses Acute kidney injury superimposed on chronic kidney disease N17.9; N18.9
[2024-05-17] MEDS: sevelamer 800 mg Tablet PO ×3 (08:50→20:55)
[2024-05-17] MEDS: ferric gluconate 125 MG in sodium chloride 0.9% (100 ml) 100 ML 110 MG IV (08:51)
--- NOTE | 2024-05-17 08:59 | PC.CHAP ---
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 [] Patient/Family/Request visit [] Outpatient visit [] Follow-up visit [] Physician referral [] Code/Alert [x] Routine visit [] Staff referral [] Actively dying [] Patient sleeping [x] Family support [] [] Out of room [] Palliative care [] [] Receiving care in room [] Pre-surgical visit [] Trauma [] Long length of stay [] ICU visit [] Other: Relational/Emotional Strength [x] Patient feels connected with others/family/visitors/staff [] Distress [] Loneliness/isolation [] Abandonment Spirituality of Patient [x] Person of [place] [x] Attends Caodaism of their [place] [x] Believes in Prayer [x] Reads Bible or Jehovah'S Witness materials [] There are Spiritual issues to be addressed Chlorination Operator Interventions [x] Prayer [x] Active listening [x] Non-anxious presence [x] Spiritual/emotional support [] Crisis/trauma care [] Spiritual counseling [] Bereavement support [] Provided bereavement packet [] Provided Bible/devotional materials [] Provided toy/stuffed animal, coloring book to patient or family member [] Provided Communion [] Anointing/[place] [] Salvation [x] Completed spiritual assessment [] Other: Impact on Illness or Injury [] Angry [] Fearful [] Anxious [] Often cries [] Exhaustion [] Unable to work [] Unable to attend religion [] Unable to walk/stand [] Unable to read [] Unable to drive [] Unable to eat/drink [] Unable to sleep [] Unable to be with family [] Patient intubated [] Other: Summary Time spent with patient 20 min
--- NOTE | 2024-05-17 09:31 | PM.PN ---
Subjective Subjective: The patient continues to improve. Denies any chest pain or shortness of breath. He had the ultrafiltration yesterday and did fairly well. No new symptoms. Awaiting possible dialysis today. Medications: Medication Review Details: Current Medications Acetaminophen (Acetaminophen 325 Mg Tablet) 650 mg PO Q6H PRN PRN Reason: MILD PAIN Acetylcysteine (Acetylcysteine 200 Mg/Ml Mdv 10 Ml) 200 mg INHALATION Q6H.RESP [facility] Last Admin: 05/17/24 09:19 Dose: 200 mg Albuterol/Ipratropium (Ipratropium-Albuterol 3 Ml Neb) 3 ml INHALATION Q6H.RESP [facility] Last Admin: 05/17/24 09:17 Dose: 3 ml Albuterol/Ipratropium (Ipratropium-Albuterol 3 Ml Neb) 3 ml INHALATION Q6H PRN PRN Reason: SHORTNESS OF BREATH Last Admin: 05/09/24 15:49 Dose: 3 ml Allopurinol (Allopurinol 100 Mg Tablet) 100 mg PO DAILY [facility] Last Admin: 05/17/24 08:10 Dose: 100 mg Amiodarone HCl (Amiodarone 200 Mg Tablet) 400 mg PO BID [facility] Last Admin: 05/17/24 08:09 Dose: 400 mg Apixaban (Apixaban 5 Mg Tablet) 2.5 mg PO BID@0900,2100 [facility] Last Admin: 05/10/24 09:45 Dose: Not Given Atorvastatin Calcium (Atorvastatin 40 Mg Tablet) 40 mg PO BEDTIME [facility] Last Admin: 05/16/24 21:12 Dose: 40 mg Bumetanide (Bumetanide 0.25 Mg/Ml Sdv 10 Ml) 2 mg IVP BID [facility] Last Admin: 05/17/24 08:11 Dose: 2 mg Carbidopa/Levodopa (Carbidopa-Levodopa 25-100mg Tablet) 0.5 each PO TID [facility] Last Admin: 05/17/24 08:10 Dose: 0.5 each Clopidogrel Bisulfate (Clopidogrel 75 Mg Tablet) 75 mg PO DAILY [facility] Last Admin: 05/12/24 08:08 Dose: 75 mg Collagenase (Collagenase Oint 30 Gm) 1 applic TOPICAL DAILY [facility] Last Admin: 05/17/24 08:11 Dose: 1 applic Diltiazem HCl (Diltiazem 30 Mg Tablet) 30 mg PO QID [facility] Last Admin: 05/10/24 09:31 Dose: 30 mg Docusate Sodium (Docusate Sodium 100 Mg Capsule) 100 mg PO BID [facility] Last Admin: 05/17/24 08:11 Dose: 100 mg Doxycycline Monohydrate (Doxycycline 100 Mg Tablet) 100 mg PO BID [facility]; Protocol Last Admin: 05/17/24 08:10 Dose: 100 mg Ergocalciferol (Ergocalciferol (Vitamin D2) 50,000 Unit Capsule) 50,000 unit PO Q7D [facility] Last Admin: 05/16/24 10:13 Dose: 50,000 unit Finasteride (Finasteride 5 Mg Tablet) 5 mg PO BEDTIME [facility] Last Admin: 05/16/24 21:12 Dose: 5 mg Guaifenesin (Guaifenesin 600 Mg Tablet) 600 mg PO BID [facility] Last Admin: 05/17/24 08:10 Dose: 600 mg Norepinephrine Bitartrate (Levophed) 4 mg in 250 mls @ 0 mls/hr IV .Q0M PRN; Protocol PRN Reason: MAP less than 65 Last Titration: 05/13/24 08:40 Dose: 0 mcg/min, 0 mls/hr Dextrose (D10w) 125 mls @ 750 mls/hr IV PRN PRN PRN Reason: HYPOGLYCEMIA Last Infusion: 05/12/24 10:53 Dose: Infused Sodium Chloride (Sodium Chloride 0.9%) 1,000 mls @ 0 mls/hr IV .Q0M PRN PRN Reason: hypotension or symptomatic Ferric Sodium Gluconate 125 mg (/ Sodium Chloride) 110 mls @ 110 mls/hr IV Q24H [facility] Stop: 05/24/24 09:59 Last Admin: 05/17/24 08:51 Dose: 110 mls/hr Lactobacillus Acidophilus (Lactobacillus 1 Tablet) 2 tab PO BID [facility] Last Admin: 05/17/24 08:10 Dose: 2 tab Lactulose (Lactulose Oral Liq 20 Gm/30 Ml Udc) 10 gm PO DAILY PRN PRN Reason: Constipation Morphine Sulfate (Morphine 4 Mg/Ml Sdv 1 Ml) 2 mg IVP Q4H PRN PRN Reason: SHORTNESS OF BREATH Last Admin: 05/17/24 02:28 Dose: 2 mg Ondansetron HCl (Ondansetron 2 Mg/Ml Sdv 2 Ml) 4 mg IVP Q6H PRN PRN Reason: NAUSEA AND VOMITING Last Admin: 05/17/24 08:11 Dose: 4 mg Pantoprazole Sodium (Pantoprazole 40 Mg Sdv) 40 mg IVP BID [facility] Last Admin: 05/17/24 08:11 Dose: 40 mg Ranolazine (Ranolazine (12hr) 500 Mg Tablet) 500 mg PO BID [facility] Last Admin: 05/17/24 08:10 Dose: 500 mg Ropinirole HCl (Ropinirole 2 Mg Tablet) 1 mg PO QPM [facility] Last Admin: 05/12/24 17:13 Dose: 1 mg Senna (Sennosides 8.6 Mg Tablet) 17.2 mg PO BEDTIME [facility] Last Admin: 05/16/24 21:12 Dose: 17.2 mg Senna/Docusate Sodium (Sennosides-Docusate Tablet) 1 tab PO DAILY [facility] Last Admin: 05/17/24 08:12 Dose: 1 tab Sevelamer Carbonate (Sevelamer 800 Mg Tablet) 800 mg PO TID [facility] Last Admin: 05/17/24 08:50 Dose: 800 mg Sucralfate (Sucralfate 1 Gm Tablet) 1 gm PO AC&BEDTIME [facility] Last Admin: 05/17/24 05:59 Dose: 1 gm Tamsulosin HCl (Tamsulosin 0.4 Mg Capsule) 0.4 mg PO DAILY [facility] Last Admin: 05/17/24 08:12 Dose: 0.4 mg Vitals/I&O/Wt Last Vital Signs Temp 97.7 F 05/17/24 06:00 Pulse 87 05/17/24 09:19 Resp 20 H 05/17/24 09:19 BP 115/91 05/17/24 09:00 Pulse Ox 97 05/17/24 09:19 O2 Del Method Nasal Cannula 05/17/24 09:19 O2 Flow Rate 4 05/17/24 09:19 FiO2 30 05/17/24 04:00 05/16/24 05/17/24 05/17/24 22:59 06:59 14:59 Intake Total 950 / 1430 240 / 1670 280 / 280 Output Total 2649 / 2649 300 / 2949 Balance -1699 / -1219 -60 / -1279 280 / 280 Weight last 48 hrs Weight 197 lb 5.019 oz Weight 192 lb 14.472 oz Weight 201 lb 11.567 oz Weight 200 lb 9.93 oz Physical Exam Narrative: GENERAL: The patient is alert and oriented x 3. Not in any acute distress. HEENT: Minimal pallor. No icterus or lymphadenopathy.Oral cavity: There are no mucous membrane lesions. NECK: Trachea appears to be central. No masses noted. No JVD or thyromegaly appreciated. RESPIRATORY: Scattered diffuse expiratory wheezing and coarse crackles bilaterally BREASTS: Deferred. HEART: The heart sounds are normal. No S3 or S4. Ejection systolic murmur grade 3 or 6 in the aortic area. Apparently systolic murmur in the left sternal border. No pericardial rub ABDOMEN: No vessel pulsations or distention. No tenderness. No organomegaly appreciated. Bowel sounds are normally heard. : Deferred. RECTAL: Deferred. LYMPHATIC: No lymphadenopathy noted in the neck. EXTREMITIES: 1+ edema both lower extremities. Some weeping ulcers on the anterior aspect of the right leg, clinically improving MUSCULOSKELETAL: No acute joint deformities or swelling SKIN: There are no significant rashes or ecchymosis. Features of chronic venous stasis and stasis dermatitis especially on the left leg. Small superficial ulcers in the right leg. NEUROPSYCHIATRIC: The patient is alert and oriented x3. Not in any distress. Urinary Catheter Management: [place]: Cath Placed During This Visit: yes Reason for Continuing Indwelling Catheter: Accurate Measurement of Urinary Output in Critically Ill Patients Urinary Catheter Date of Insertion: 05/09/24 Urinary Catheter Time of Insertion: 14:29 Data 05/17/24 03:59 05/17/24 03:59 Other Labs: Laboratory Last Values WBC 9.67 10^3/uL (3.29-11.43) 05/17/24 03:59 RBC 2.64 10^6/uL (3.85-5.65) L 05/17/24 03:59 Hgb 8.50 g/dL (11.27-16.99) L 05/17/24 03:59 Hct 27.5 % (37-53) L 05/17/24 03:59 MCV 104.2 fl (82-101) H 05/17/24 03:59 MCH 32.2 pg (27-33) 05/17/24 03:59 MCHC 30.9 g/dL (30-55) 05/17/24 03:59 RDW 20.9 % (12.1-15.1) H 05/17/24 03:59 Plt Count 134 10^3/cmm (157-399) L 05/17/24 03:59 MPV 9.5 fL (7.4-10.4) 05/17/24 03:59 Neut % (Auto) 85.7 % 05/17/24 03:59 Lymph % (Auto) 3.6 % 05/17/24 03:59 [place] % (Auto) 9.4 % 05/17/24 03:59 Eos % (Auto) 0.4 % 05/17/24 03:59 Baso % (Auto) 0.0 % 05/17/24 03:59 Neut # (Auto) 8.28 10^3/uL (1.8-7.7) H 05/17/24 03:59 Lymph # (Auto) 0.4 10^3/uL (0.8-4.8) L 05/17/24 03:59 [place] # (Auto) 0.9 10^3/uL (0.2-0.9) 05/17/24 03:59 Eos # (Auto) 0.0 10^3/uL (0.0-0.8) 05/17/24 03:59 Baso # (Auto) 0.0 10^3/uL (0.0-0.1) 05/17/24 03:59 Nucleated RBC % (auto) 0 % 05/17/24 03:59 Nucleated RBCs # 0.0 /100WBC 05/17/24 03:59 PT 22.80 SECONDS (12.1-14.9) H 05/09/24 15:45 INR 1.93 (0.8-1.2) H 05/09/24 15:45 APTT 47.3 SECONDS (23.9-36.7) H 05/09/24 15:45 Specimen Type Arterial 05/10/24 04:13 Sample Site Radial, right 05/10/24 04:13 ABG pH 7.45 (7.35-7.45) 05/10/24 04:13 ABG pCO2 33.6 mmHg (35-45) L 05/10/24 04:13 ABG pO2 64.4 mmHg (80.0-100.0) L 05/10/24 04:13 ABG PO2/FiO2 Ratio 0 05/10/24 04:13 ABG HCO3 23.2 mmol/L (22-26) 05/10/24 04:13 ABG O2 Saturation 99.5 05/09/24 09:50 ABG Base Excess -0.6 mmol/L (-2.0-2.0) 05/10/24 04:13 [place]pin Test Pos 05/10/24 04:13 A-a O2 Gradient 13.1 mmHg (5-10) H 05/09/24 09:50 Hematocrit 25.3 % (42-52) L 05/10/24 04:13 Hgb O2 Saturation 95.5 % (95-100) 05/09/24 09:50 Carboxyhemoglobin 3.7 %THgb (0.4-20.1) 05/09/24 09:50 Methemoglobin 0.4 % (0.4-1.5) 05/09/24 09:50 Total Hemoglobin 7.2 g/dL (14-18) L 05/09/24 09:50 Sodium 132.0 mmol/L (131-143) 05/09/24 09:50 Potassium 4.7 mmol/L (3.5-5.0) 05/09/24 09:50 Glucose 97.0 mg/dL (70-115) 05/09/24 09:50 Ionized Calcium 1.2 mmol/L (1.1-1.4) 05/09/24 09:50 O2 Delivery Device Bipap 05/10/24 04:13 O2 Liters/Min 4.0 % 05/09/24 09:50 FiO2 30.0 % 05/10/24 04:13 Tidal Volume 0.40 05/10/24 04:13 Marine Steam Fitter Helper ID [place] 05/10/24 04:13 Sodium 142 mmol/L (136-145) 05/17/24 03:59 Potassium 4.2 mmol/L (3.5-5.1) 05/17/24 03:59 Chloride 103 mmol/L (98-107) 05/17/24 03:59 Carbon Dioxide 26 mmol/L (22-29) 05/17/24 03:59 Anion Gap 17.2 (5-19) 05/17/24 03:59 BUN 101 mg/dL (8-23) H* 05/17/24 03:59 Creatinine 2.7 mg/dL (0.7-1.2) H 05/17/24 03:59 GFR Calculation Not Reportable 05/17/24 03:59 Glucose 103 mg/dL (65-115) 05/17/24 03:59 POC Glucose 136 mg/dL (70-110) H 05/12/24 11:27 Calculated Osmolality 326 mOsm/kg (285-295) H 05/17/24 03:59 Lactic Acid 1.6 mmol/L (0.5-2.2) 05/09/24 09:58 Uric Acid 11.9 mg/dL (3.4-7.0) H 05/09/24 09:58 Calcium 8.5 mg/dL (8.5-10.5) 05/17/24 03:59 Phosphorus 5.7 mg/dL (2.5-4.5) H 05/17/24 03:59 Magnesium 2.6 mg/dL (1.7-2.3) H 05/17/24 03:59 Iron 55 ug/dL (59-158) L 05/09/24 09:58 TIBC 315 mcg/dl 05/09/24 09:58 % Saturation 17.4 % (20-50) L 05/09/24 09:58 Unsat Iron Binding 260 ug/dL (112-347) 05/09/24 09:58 Ferritin 139 ng/mL (30-400) 05/16/24 04:18 Total Bilirubin 0.6 mg/dL (0.15-1.2) 05/17/24 03:59 AST 19 U/L (0-40) 05/17/24 03:59 ALT < 5 U/L (0-41) 05/17/24 03:59 Alkaline Phosphatase 72 U/L (40-130) 05/17/24 03:59 Troponin T Baseline 74 ng/L (0-15) H 05/09/24 09:58 Troponin T 120 Minute 72.15 ng/L (0-15) H 05/09/24 13:05 Delta Troponin T -1.85 ABS# (0-10) L 05/09/24 13:05 Troponin T Hi Sens 6Hr 61.14 ng/L (0-15) H 05/09/24 15:45 Troponin T Hi Sens 6Hr Delta -12.86 ng/L (0-12) L 05/09/24 15:45 C-Reactive Protein 26.9 mg/L (0.0-4.9) H 05/09/24 09:58 NT-Pro-B Natriuret Pep 2199 pg/mL (0-450) H 05/09/24 09:58 Total Protein 5.5 g/dL (6.6-8.7) L 05/17/24 03:59 Albumin 3.8 g/dL (3.5-5.2) 05/17/24 03:59 Globulin 1.7 g/dL (1.3-4.6) 05/17/24 03:59 25-OH Vitamin D Total 21 ng/mL (30-100) L 05/16/24 04:18 PTH Intact 143.6 pg/mL (15-65) H 05/16/24 04:18 Calcium (PTH Intact) 8.2 mg/dL (8.5-10.5) L 05/16/24 04:18 Urine Color Yellow (Yellow) 05/09/24 14:27 Urine Appearance Clear (CLEAR) 05/09/24 14:27 Urine pH 5 (5-7) 05/09/24 14:27 Ur Specific [place] 1.020 (1.005-1.030) 05/09/24 14:27 Urine Protein Trace (Negative) 05/09/24 14:27 Urine Glucose (UA) Norm (Normal) 05/09/24 14:27 Urine Ketones 1+ (Negative) H 05/09/24 14:27 Urine Blood Neg (Negative) 05/09/24 14:27 Urine Nitrate Negative (Negative) 05/09/24 14:27 Urine Bilirubin Neg (Negative) 05/09/24 14:27 Urine Urobilinogen Neg mg/dL (Negative) 05/09/24 14:27 Ur Leukocyte Esterase Negative (Negative) 05/09/24 14:27 Urine RBC Rare /hpf (0-2) 05/09/24 14:27 Urine WBC 0-4 /hpf (0-5) H 05/09/24 14:27 Ur Squamous Epith Cells 0-4 /hpf (0-5) H 05/09/24 14:27 Ur Transition Epith Cell 0-4 /hpf 05/09/24 14:27 Amorphous Sediment Not Reportable 05/09/24 14:27 Urine Bacteria 1+ /hpf (NONE) H 05/09/24 14:27 Hyaline Casts 15-25 /lpf H 05/09/24 14:27 Urine Mucus Trace /hpf 05/09/24 14:27 Ur Random Microalbumin 49 ug/dL (0-20) H 05/12/24 13:17 Ur Random Sodium 28 mmol/L 05/12/24 13:17 Ur Random Chloride 34 mmol/L 05/12/24 13:17 Urine Creatinine 60 mg/dL (39-259) 05/12/24 13:17 Microalb/Creat Ratio 817 mg/dL (0-20) H 05/12/24 13:17 Adenovirus (PCR) Not detected (NOT DETECT) 05/09/24 10:00 C. pneumoniae DNA (PCR) Not detected (NOT DETECT) 05/09/24 10:00 Coronavirus 229E (PCR) Not detected (NOT DETECT) 05/09/24 10:00 Hep Bs Antigen Non-reactive (Nonreactive) 05/15/24 09:20 Hep Bs Antibody < 3.5 (11.5-1000) L 05/15/24 09:20 Human Metapneumovir PCR Not detected (NOT DETECT) 05/09/24 10:00 Influenza A (H1) PCR Not detected (NOT DETECT) 05/09/24 10:00 Influ A (H1/09) PCR Not detected (NOT DETECT) 05/09/24 10:00 Influenza A (H3) PCR Not detected (NOT DETECT) 05/09/24 10:00 Influenza Type A (PCR) Not detected (NOT DETECT) 05/09/24 10:00 Influenza Type B (PCR) Not detected (NOT DETECT) 05/09/24 10:00 M. pneumoniae (PCR) Not detected (NOT DETECT) 05/09/24 10:00 Parainfluenza 1 (PCR) Not detected (NOT DETECT) 05/09/24 10:00 Parainfluenza 2 (PCR) Not detected (NOT DETECT) 05/09/24 10:00 Parainfluenza 3 (PCR) Not detected (NOT DETECT) 05/09/24 10:00 Parainfluenza 4 (PCR) Not detected (NOT DETECT) 05/09/24 10:00 RSV Type A (PCR) Not detected (NOT DETECT) 05/09/24 10:00 RSV Type B (PCR) Not detected (NOT DETECT) 05/09/24 10:00 Entero/Rhino (PCR) Not detected (NOT DETECT) 05/09/24 10:00 SARS-CoV-2 (PCR) Not detected (NOT DETECT) 05/09/24 10:00 Blood Type O Positive 05/13/24 13:30 Rho(D) Type Rh positive 05/13/24 13:30 Antibody Screen Negative 05/13/24 13:30 Crossmatch See Detail 05/13/24 13:30 A&P Assessment and plan (1) Atherosclerotic heart disease of [place] coronary artery with unstable angina pectoris: Patient seems to have significant improvement of the chest pain. At this point, we may continue on the current medications. If he continues to remain stable, he may not require any further investigations at this point. Qualifiers: [place] vs. transplanted heart: [place] heart Qualified Code(s): I25.110 - Atherosclerotic heart disease of [place] coronary artery with unstable angina pectoris (2) Acute kidney injury superimposed on chronic kidney disease: Patient is being followed by the nephrology service. May continue on the current management. Possible dialysis today. (3) Hypotension: The blood pressure seems to be stable, may continue on the current management. Qualifiers: Hypotension type: other hypotension type Qualified Code(s): I95.89 - Other hypotension (4) Atrial fibrillation: Patient is in atrial fibrillation with controlled ventricular response rate. May continue on the current treatment. Qualifiers: Atrial fibrillation type: persistent (not longstanding) Qualified Code(s): I48.19 - Other persistent atrial fibrillation (5) Acute on chronic diastolic heart failure: Heart failure is fairly compensated. Will continue on the current management. (6) Hyperlipidemia: May continue on the current medication Qualifiers: Hyperlipidemia type: unspecified Qualified Code(s): E78.5 - Hyperlipidemia, unspecified (7) Peripheral arterial disease: Clinically seems to be stable. May continue on the current treatment. (8) Anemia: The hemoglobin seems to be steady. May continue on the current management Qualifiers: Anemia type: unspecified type Qualified Code(s): D64.9 - Anemia, unspecified (9) Aortic stenosis: The patient seems to have a severe low gradient aortic valve stenosis. Most likely this is a technical error. We may have to repeat the aortic valve and LV outflow tract Doppler studies to reevaluate the stenosis. This may be done after discharge Qualifiers: Cardiac valve disease etiology: nonrheumatic Qualified Code(s): I35.0 - Nonrheumatic aortic (valve) stenosis Plan If the patient continues to remain stable, s he may not require any other specific cardiac interventions at this point May continue on the current medications Attestations Medical Necessity Statement*: Disposition as per the primary Coding Level of Care Code 37985 Diagnoses Atherosclerosis of [place] coronary artery of [place] heart with unstable angina pectoris I25.110 [place] vs. transplanted heart: [place] heart Acute kidney injury superimposed on chronic kidney disease N17.9; N18.9 Other specified hypotension I95.89 Hypotension type: other hypotension type Persistent atrial fibrillation I48.19 Atrial fibrillation type: persistent (not longstanding) Acute on chronic diastolic heart failure I50.33 Hyperlipidemia, unspecified hyperlipidemia type E78.5 Hyperlipidemia type: unspecified Peripheral arterial disease I73.9 Anemia D64.9 Anemia type: unspecified type Nonrheumatic aortic valve stenosis I35.0 Cardiac valve disease etiology: nonrheumatic
--- NOTE | 2024-05-17 10:02 | P.PN_ITS ---
Subjective 2 Subjective: Patient is sitting in a chair Eating breakfast No bowel movement yesterday Patient is stating that he is not concerned about constipation Passage of flatus endorsed by the patient Currently on 4 L nasal cannula Blood pressure stable Getting iron bag As per nephro?plan to give him Bumex and depending on urine output response to single made whether he would go for dialysis today or not 300 mL urine output as per the nursing s taff Vitals/I&O/Wt Last Vital Signs Temp 97.7 F 05/17/24 06:00 Pulse 87 05/17/24 09:19 Resp 20 H 05/17/24 09:19 BP 115/91 05/17/24 09:00 Pulse Ox 97 05/17/24 09:19 O2 Del Method Nasal Cannula 05/17/24 09:19 O2 Flow Rate 4 05/17/24 09:19 FiO2 30 05/17/24 04:00 05/16/24 05/17/24 05/17/24 22:59 06:59 14:59 Intake Total 950 / 1430 240 / 1670 390 / 390 Output Total 2649 / 2649 300 / 2949 Balance -1699 / -1219 -60 / -1279 390 / 390 Weight last 48 hrs Weight 89.5 kg Weight 87.5 kg Weight 91.5 kg Weight 91 kg Physical Exam 2 Narrative: Clinically patient is showing signs of improvement of hypervolemia Currently on 4 L nasal cannula Mild rhonchi at base of the lungs Abdomen soft, distended nontender Bowel sounds sluggish Extremity edema present but improving Right leg cellulitis improving as well Squires catheter placed No signs of hematuria Pleasant cooperative nonfocal neuroexam A-fib without RVR Urinary Catheter Management: Squires: Cath Placed During This Visit: yes Reason for Continuing Indwelling Catheter: Accurate Measurement of Urinary Output in Critically Ill Patients Urinary Catheter Date of Insertion: 05/09/24 Urinary Catheter Time of Insertion: 14:29 Data 05/17/24 03:59 05/17/24 03:59 A&P Assessment and plan (1) Diastolic CHF: Qualifiers: Heart failure chronicity: acute on chronic Qualified Code(s): I50.33 - Acute on chronic diastolic (congestive) heart failure (2) Acute on chronic diastolic heart failure: (3) Aortic stenosis: Qualifiers: Cardiac valve disease etiology: nonrheumatic Qualified Code(s): I35.0 - Nonrheumatic aortic (valve) stenosis (4) Peripheral arterial disease: (5) Atrial fibrillation: Qualifiers: Atrial fibrillation type: persistent (not longstanding) Qualified Code(s): I48.19 - Other persistent atrial fibrillation (6) Chronic anticoagulation: (7) Constipation: (8) GI bleeding: (9) Acute kidney injury superimposed on chronic kidney disease: (10) BPH (benign prostatic hyperplasia): Qualifiers: Lower urinary tract symptom presence: symptoms present Lower urinary tract symptom detail: urinary hesitancy Qualified Code(s): N40.1 - Benign prostatic hyperplasia with lower urinary tract symptoms; R39.11 - Hesitancy of micturition (11) Acute blood loss anemia: (12) Cellulitis: (13) RLS (restless legs syndrome): (14) On home oxygen therapy: (15) COPD with acute exacerbation: (16) SHARON (obstructive sleep apnea): (17) Lower extremity edema: Plan Acute diastolic CHF exacerbation Status post 2 sessions of dialysis Today nephro is wanting diuretic trial again Urine output 300 mL Acute on chronic kidney disease: Appreciate nephro recommendations Replenish vitamin D Getting iron Hemoglobin stable May need Epogen Phosphorus binder For session of dialysis 05/15, ultrafiltration 05/16 dialysis catheter placement 05/15 Acute GI blood loss anemia Status post EGD 05/14 which showed gastric erosion/gastritis Patient also has hematuria Hematuria started 05/13 resolved 05/15 Most likely active source of anemia seems to be GI blood loss Status post 2 units PRBC First unit was given on admission, second unit given 05/13 A-fib without RVR Off Eliquis and Plavix Status post EGD which showed gastritis Hematuria has resolved Plan to hold off on Eliquis for about 4 weeks Low extremity edema related to diastolic CHF Applying topical bacitracin, Santyl with daily dressing change Lower extremity edema improving Right common iliac stenosis, 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 planned as per cardiology As per the family 2017 at [facility] attempt was made however they were not able to revascularize Patient has been on Plavix and atorvastatin Plavix on hold Constipation: Patient has bowel regimen on as-needed basis Intermittent chest pain Patient takes nitroglycerin which improved his pain He gets antianginal medications Cardiology recommended medical management, previous angiogram showed patent stents atherosclerotic disease which was not amenable to intervention Continue ICU management Full code Start renal nondialysis diet Full code Resting tremors patient takes carbidopa levodopa Hypoxia:- at home uses 2 L currently on 4L Patient has volume overload and pulm edema signs, will repeat x-ray today, not anticipating thoracentesis as of now Attestations 2 Medical Necessity Statement*: Continue ICU management Diagnoses Acute on chronic diastolic congestive heart failure I50.33 Heart failure chronicity: acute on chronic Acute on chronic diastolic heart failure I50.33 Nonrheumatic aortic valve stenosis I35.0 Cardiac valve disease etiology: nonrheumatic Peripheral arterial disease I73.9 Persistent atrial fibrillation I48.19 Atrial fibrillation type: persistent (not longstanding) Chronic anticoagulation Z79.01 Constipation K59.00 GI bleeding K92.2 Acute kidney injury superimposed on chronic kidney disease N17.9; N18.9 Benign prostatic hyperplasia with urinary hesitancy N40.1; R39.11 Lower urinary tract symptom presence: symptoms present Lower urinary tract symptom detail: urinary hesitancy Acute blood loss anemia D62 Cellulitis L03.90 RLS (restless legs syndrome) G25.81 On home oxygen therapy Z99.81 COPD with acute exacerbation J44.1 SHARON (obstructive sleep apnea) G47.33 Lower extremity edema R60.0
[2024-05-17] MEDS: albumin 12.5 GM/50 ML VIAL IV ×2 (15:20→15:50)
[2024-05-17] MEDS: pantoprazole DR 40 mg Tablet PO (17:07)
[2024-05-17] MEDS: atorvastatin 40 mg Tablet PO (20:55)
[2024-05-17] MEDS: sennosides 8.6 mg Tablet 17.2 MG PO (20:55)
[2024-05-17] MEDS: finasteride 5 mg Tablet PO (20:56)
[2024-05-18] VITALS (20 sets, daily range): BP systolic 106–120; BP diastolic 62–77; PULSE 80–99; RESP 14–18; TEMP 36.3–36.8; O2SAT 91–99
[2024-05-18] MEDS: morphine 4 mg/mL SDV 1 mL 2 MG IVP ×2 (01:09→20:28)
[2024-05-18] MEDS: acetylcysteine 200 mg/mL MDV 10 mL INHALATION ×2 (01:53→07:31)
[2024-05-18] MEDS: ipratropium-albuterol 3 mL Neb INHALATION ×4 (01:53→20:25)
[2024-05-18 05:59] LABS: Basophils % 0.1 %; Eosinophils # 0.1 10^3/uL (0.0-0.8); Eosinophils % 0.8 %; Hematocrit 26.8 % (37-53); Lymphocytes # 0.3 10^3/uL (0.8-4.8); Lymphocytes % 2.9 %; Mean Corpuscular HGB Conc 30.6 g/dL (30-55); Mean Corpuscular Hemoglobin 31.5 pg (27-33); Mean Corpuscular Volume 103.1 fl (82-101); Mean Platelet Volume 10.1 fL (7.4-10.4); Monocytes # 0.9 10^3/uL (0.2-0.9); Monocytes % 9.3 %; Neutrophils # 7.96 10^3/uL (1.8-7.7); Nucleated Red Blood Cells % 0 %; Platelet Count 126 10^3/cmm (157-399); Red Cell Distribution Width 20.4 % (12.1-15.1); White Blood Count 9.25 10^3/uL (3.29-11.43)
[2024-05-18 06:32] LABS: Alanine Aminotransferase < 5 U/L (0-41); Alkaline Phosphatase 71 U/L (40-130); Anion Gap 16.2 (5-19); Aspartate Amino Transferase 18 U/L (0-40); Calcium 8.8 mg/dL (8.5-10.5); Carbon Dioxide 27 mmol/L (22-29); Chloride 104 mmol/L (98-107); Globulin 1.8 g/dL (1.3-4.6); Glucose 100 mg/dL (65-115); Magnesium 2.7 mg/dL (1.7-2.3); Osmolality Calculated 329 mOsm/kg (285-295); Phosphorus 5.5 mg/dL (2.5-4.5); Potassium 4.2 mmol/L (3.5-5.1); Sodium 143 mmol/L (136-145); Total Bilirubin 0.6 mg/dL (0.15-1.2); Total Protein 5.8 g/dL (6.6-8.7)
[2024-05-18 06:37] LABS: Blood Urea Nitrogen 106 mg/dL (8-23)
[2024-05-18] MEDS: sucralfate 1 gm Tablet PO ×4 (06:40→21:02)
--- NOTE | 2024-05-18 08:15 | P.PN_ITS ---
Subjective 2 Subjective: The patient was seen and examined. The patient is status post dialysis the last 3 days. The patient is feeling much better. He states he is eating. He is out of the ICU on a medical floor. He has known nausea. He states that he is able to ambulate. Denies diarrhea. Medications: Reviewed: Yes Medication Review Details: Current Medications Acetaminophen (Acetaminophen 325 Mg Tablet) 650 mg PO Q6H PRN PRN Reason: MILD PAIN Acetylcysteine (Acetylcysteine 200 Mg/Ml Mdv 10 Ml) 200 mg INHALATION Q6H.RESP [facility] [place] Last Admin: 05/18/24 07:31 Dose: 200 mg Albuterol/Ipratropium (Ipratropium-Albuterol 3 Ml Neb) 3 ml INHALATION Q6H.RESP [facility] [place] Last Admin: 05/18/24 07:31 Dose: 3 ml Albuterol/Ipratropium (Ipratropium-Albuterol 3 Ml Neb) 3 ml INHALATION Q6H PRN PRN Reason: SHORTNESS OF BREATH Last Admin: 05/09/24 15:49 Dose: 3 ml Allopurinol (Allopurinol 100 Mg Tablet) 100 mg PO DAILY [facility] [place] Last Admin: 05/17/24 08:10 Dose: 100 mg Amiodarone HCl (Amiodarone 200 Mg Tablet) 400 mg PO BID [facility] [place] Last Admin: 05/17/24 17:07 Dose: 400 mg Apixaban (Apixaban 5 Mg Tablet) 2.5 mg PO BID@0900,2100 [facility] [place] Last Admin: 05/10/24 09:45 Dose: Not Given Atorvastatin Calcium (Atorvastatin 40 Mg Tablet) 40 mg PO BEDTIME [facility] [place] Last Admin: 05/17/24 20:55 Dose: 40 mg Bumetanide (Bumetanide 0.25 Mg/Ml Sdv 10 Ml) 2 mg IVP DAILY [facility] [place] Carbidopa/Levodopa (Carbidopa-Levodopa 25-100mg Tablet) 0.5 each PO TID [facility] [place] Last Admin: 05/17/24 20:55 Dose: 0.5 each Clopidogrel Bisulfate (Clopidogrel 75 Mg Tablet) 75 mg PO DAILY [facility] [place] Last Admin: 05/12/24 08:08 Dose: 75 mg Collagenase (Collagenase Oint 30 Gm) 1 applic TOPICAL DAILY [facility] [place] Last Admin: 05/17/24 08:11 Dose: 1 applic Diltiazem HCl (Diltiazem 30 Mg Tablet) 30 mg PO QID [facility] [place] Last Admin: 05/10/24 09:31 Dose: 30 mg Docusate Sodium (Docusate Sodium 100 Mg Capsule) 100 mg PO BID [facility] [place] Last Admin: 05/17/24 17:07 Dose: 100 mg Doxycycline Monohydrate (Doxycycline 100 Mg Tablet) 100 mg PO BID [facility] [place]; Protocol Last Admin: 05/17/24 17:07 Dose: 100 mg Ergocalciferol (Ergocalciferol (Vitamin D2) 50,000 Unit Capsule) 50,000 unit PO Q7D [facility] [place] Last Admin: 05/16/24 10:13 Dose: 50,000 unit Finasteride (Finasteride 5 Mg Tablet) 5 mg PO BEDTIME [facility] [place] Last Admin: 05/17/24 20:56 Dose: 5 mg Guaifenesin (Guaifenesin 600 Mg Tablet) 600 mg PO BID [facility] [place] Last Admin: 05/17/24 17:07 Dose: 600 mg Norepinephrine Bitartrate (Levophed) 4 mg in 250 mls @ 0 mls/hr IV .Q0M PRN; Protocol PRN Reason: MAP less than 65 Last Titration: 05/18/24 01:45 Dose: Infused Dextrose (D10w) 125 mls @ 750 mls/hr IV PRN PRN PRN Reason: HYPOGLYCEMIA Last Infusion: 05/12/24 10:53 Dose: Infused Sodium Chloride (Sodium Chloride 0.9%) 1,000 mls @ 0 mls/hr IV .Q0M PRN PRN Reason: hypotension or symptomatic Ferric Sodium Gluconate 125 mg (/ Sodium Chloride) 110 mls @ 110 mls/hr IV Q24H [facility] [place] Stop: 05/24/24 09:59 Last Infusion: 05/17/24 09:53 Dose: Infused Lactobacillus Acidophilus (Lactobacillus 1 Tablet) 2 tab PO BID [facility] [place] Last Admin: 05/17/24 17:07 Dose: 2 tab Lactulose (Lactulose Oral Liq 20 Gm/30 Ml Udc) 10 gm PO DAILY PRN PRN Reason: Constipation Morphine Sulfate (Morphine 4 Mg/Ml Sdv 1 Ml) 2 mg IVP Q4H PRN PRN Reason: SHORTNESS OF BREATH Last Admin: 05/18/24 01:09 Dose: 2 mg Ondansetron HCl (Ondansetron 2 Mg/Ml Sdv 2 Ml) 4 mg IVP Q6H PRN PRN Reason: NAUSEA AND VOMITING Last Admin: 05/17/24 08:11 Dose: 4 mg Pantoprazole Sodium (Pantoprazole Dr 40 Mg Tablet) 40 mg PO BID [facility] [place] Last Admin: 05/17/24 17:07 Dose: 40 mg Ranolazine (Ranolazine (12hr) 500 Mg Tablet) 500 mg PO BID [facility] [place] Last Admin: 05/17/24 17:07 Dose: 500 mg Ropinirole HCl (Ropinirole 2 Mg Tablet) 1 mg PO QPM [facility] [place] Last Admin: 05/12/24 17:13 Dose: 1 mg Senna (Sennosides 8.6 Mg Tablet) 17.2 mg PO BEDTIME [facility] [place] Last Admin: 05/17/24 20:55 Dose: 17.2 mg Senna/Docusate Sodium (Sennosides-Docusate Tablet) 1 tab PO DAILY [facility] [place] Last Admin: 05/17/24 08:12 Dose: 1 tab Sevelamer Carbonate (Sevelamer 800 Mg Tablet) 800 mg PO TID [facility] [place] Last Admin: 05/17/24 20:55 Dose: 800 mg Sucralfate (Sucralfate 1 Gm Tablet) 1 gm PO AC&BEDTIME [facility] [place] Last Admin: 05/18/24 06:40 Dose: 1 gm Tamsulosin HCl (Tamsulosin 0.4 Mg Capsule) 0.4 mg PO DAILY [facility] [place] Last Admin: 05/17/24 08:12 Dose: 0.4 mg Vitals/I&O/Wt Last Vital Signs Temp 97.5 F L 05/18/24 03:36 Pulse 95 05/18/24 07:31 Resp 16 05/18/24 07:31 BP 106/64 05/18/24 03:36 Pulse Ox 98 05/18/24 07:31 O2 Del Method Nasal Cannula 05/18/24 07:31 O2 Flow Rate 5 05/18/24 07:31 FiO2 30 05/18/24 04:00 05/17/24 05/18/24 05/18/24 22:59 06:59 14:59 Intake Total 320 / 860 50 / 910 Output Total 100 / 100 Balance 320 / 860 -50 / 810 Weight last 48 hrs Weight 86.183 kg Weight 89.5 kg Weight 87.5 kg Physical Exam 2 Narrative: Elderly man sitting up in chair comfortable Vital signs noted. HEENT normocephalic/atraumatic. Neck is supple, positive right IJ permacath. Lungs dull bases, improved air movement bilaterally. Heart-irregular rhythm well-controlled, systolic murmur Abdomen is soft positive bowel sounds. Extremities decreased bilateral edema. Skin tears and edema are improving. Urinary Catheter Management: Squires: Cath Placed During This Visit: yes Reason for Continuing Indwelling Catheter: Other Urinary Catheter Date of Insertion: 05/09/24 Urinary Catheter Time of Insertion: 14:29 Data 05/18/24 05:23 05/18/24 05:23 A&P Assessment and plan (1) Acute kidney injury superimposed on chronic kidney disease: 89-year-old gentleman with A-fib, heart failure preserved EF, GI bleed, acute on chronic renal failure. Patient has responded to diuretics. Blood pressure remains on the low side. Case was discussed between my colleague Dr. spain and the hospitalist and cardiology. The decision was to proceed with dialysis to help remove fluids. The patient started dialysis on May 15, 2024. The patient had fluid removal on May 16 on May 17, 2024 via ultrafiltration. Today will attempt to use Bumex and monitor how he is doing. I would also consider holding Eliquis and consider tapping pleural effusion, patient has significant right sided effusion. Anemia management iron saturation is low at 17 ferritin 157-start IV iron. Use Epogen, and also may need IV iron. Renal bone mineral metabolism: Vitamin D levels low at 21 will give vitamin D. PTH is 143 will monitor. Phosphorus is 5.5-continue phosphorus binder. Will monitor I's and O's Daily and chemistries and assess for needs of dialysis versus renal recovery. Patient was seen and examined using A/V equipment via a telehealth visit. The nurse examined the patient. Consent for telehealth and for hemodialysis was obtained from the patient and his family. Plan see above Trial of Bumex and see if he responds if not patient will need further dialysis. Attestations 2 Medical Necessity Statement*: GODFRE[facility] GI bleed pleural effusions, acute on chronic heart failure preserved EF Time Spent in Patient Care: 16 - 35 minutes (>than 50% of time sp ent in counselling and/or direct pt care on unit) . Coding Level of Care Code Acute Code for Chg Fwd Diagnoses Acute kidney injury superimposed on chronic kidney disease N17.9; N18.9
[2024-05-18] MEDS: ferric gluconate 125 MG in sodium chloride 0.9% (100 ml) 100 ML 110 MG IV (09:33)
[2024-05-18] MEDS: bumetanide 0.25 mg/mL SDV 10 mL 2 MG IVP (09:34)
[2024-05-18] MEDS: tamsulosin 0.4 mg Capsule PO (09:35)
[2024-05-18] MEDS: sevelamer 800 mg Tablet PO ×3 (09:35→21:02)
[2024-05-18] MEDS: docusate sodium 100 mg Capsule PO ×2 (09:35→18:08)
[2024-05-18] MEDS: carbidopa-levodopa 25-100mg Tablet 0.5 EACH PO ×3 (09:35→21:03)
[2024-05-18] MEDS: guaiFENesin 600 mg Tablet PO ×2 (09:36→18:08)
[2024-05-18] MEDS: sennosides-docusate Tablet 1 TAB PO (09:36)
[2024-05-18] MEDS: allopurinol 100 mg Tablet PO (09:36)
[2024-05-18] MEDS: ranolazine (12HR) 500 mg Tablet PO ×2 (09:36→18:08)
[2024-05-18] MEDS: pantoprazole DR 40 mg Tablet PO ×2 (09:36→18:08)
[2024-05-18] MEDS: doxycycline 100 mg Tablet PO ×2 (09:36→18:08)
[2024-05-18] MEDS: lactobacillus 1 Tablet 2 TAB PO ×2 (09:49→18:07)
[2024-05-18] MEDS: amiodarone 200 mg Tablet 400 MG PO ×2 (09:49→18:07)
--- NOTE | 2024-05-18 09:53 | P.PN_ITS ---
Subjective 2 Subjective: Patient is endorsing feeling better Blood pressure has been stable Currently on 5 L nasal cannula Creatinine 3.1 800ml urine output Appreciate nephro recommendations Vitals/I&O/Wt Last Vital Signs Temp 97.5 F L 05/18/24 03:36 Pulse 95 05/18/24 07:31 Resp 16 05/18/24 07:31 BP 106/64 05/18/24 03:36 Pulse Ox 98 05/18/24 07:31 O2 Del Method Nasal Cannula 05/18/24 07:31 O2 Flow Rate 5 05/18/24 07:31 FiO2 30 05/18/24 04:00 05/17/24 05/18/24 05/18/24 22:59 06:59 14:59 Intake Total 320 / 860 50 / 910 Output Total 100 / 100 Balance 320 / 860 -50 / 810 Weight last 48 hrs Weight 86.183 kg Weight 89.5 kg Weight 87.5 kg Physical Exam 2 Narrative: Signs of fluid overload improving Currently on 5 L nasal cannula Blood pressure has been stable Patient doing well work with PT Nonfocal neuroexam Pet[place]ia ecchymosis of extremities noted Neck cellulitis of lower extremity improving as well Abdomen soft Bowel sound present but sluggish A-fib without RVR Urinary Catheter Management: Squires: Cath Placed During This Visit: yes Reason for Continuing Indwelling Catheter: Other Urinary Catheter Date of Insertion: 05/09/24 Urinary Catheter Time of Insertion: 14:29 Data 05/18/24 05:23 05/18/24 05:23 A&P Assessment and plan (1) Diastolic CHF: Qualifiers: Heart failure chronicity: acute on chronic Qualified Code(s): I50.33 - Acute on chronic diastolic (congestive) heart failure (2) Acute on chronic diastolic heart failure: (3) Aortic stenosis: Qualifiers: Cardiac valve disease etiology: nonrheumatic Qualified Code(s): I35.0 - Nonrheumatic aortic (valve) stenosis (4) Peripheral arterial disease: (5) Atrial fibrillation: Qualifiers: Atrial fibrillation type: persistent (not longstanding) Qualified Code(s): I48.19 - Other persistent atrial fibrillation (6) Chronic anticoagulation: (7) Constipation: (8) GI bleeding: (9) Acute kidney injury superimposed on chronic kidney disease: (10) BPH (benign prostatic hyperplasia): Qualifiers: Lower urinary tract symptom presence: symptoms present Lower urinary tract symptom detail: urinary hesitancy Qualified Code(s): N40.1 - Benign prostatic hyperplasia with lower urinary tract symptoms; R39.11 - Hesitancy of micturition (11) Acute blood loss anemia: (12) Cellulitis: (13) RLS (restless legs syndrome): (14) On home oxygen therapy: (15) COPD with acute exacerbation: (16) SHARON (obstructive sleep apnea): (17) Lower extremity edema: Plan Acute diastolic CHF exacerbation Status post 2 sessions of dialysis UO800 mL As per nephro no plan for dialysis today, trial of Bumex Acute on chronic kidney disease: Appreciate nephro recommendations Replenish vitamin D Getting iron Hemoglobin stable Phosphorus binder For session of dialysis 05/15, ultrafiltration 05/16 dialysis catheter placement 05/15 Acute GI blood loss anemia Hemoglobin stable No plan for blood transfusion, getting iron A-fib without RVR Off Eliquis and Plavix Full code Resting tremors patient takes carbidopa levodopa Hypoxia:- at home uses 2 L currently on 4L Patient has volume overload and pulm edema signs, will repeat x-ray today, not anticipating thoracentesis as of now Disposition plan: Patient was to go home once his kidney function improved Attestations 2 Medical Necessity Statement*: Continue medical management Diagnoses Acute on chronic diastolic congestive heart failure I50.33 Heart failure chronicity: acute on chronic Acute on chronic diastolic heart failure I50.33 Nonrheumatic aortic valve stenosis I35.0 Cardiac valve disease etiology: nonrheumatic Peripheral arterial disease I73.9 Persistent atrial fibrillation I48.19 Atrial fibrillation type: persistent (not longstanding) Chronic anticoagulation Z79.01 Constipation K59.00 GI bleeding K92.2 Acute kidney injury superimposed on chronic kidney disease N17.9; N18.9 Benign prostatic hyperplasia with urinary hesitancy N40.1; R39.11 Lower urinary tract symptom presence: symptoms present Lower urinary tract symptom detail: urinary hesitancy Acute blood loss anemia D62 Cellulitis L03.90 RLS (restless legs syndrome) G25.81 On home oxygen therapy Z99.81 COPD with acute exacerbation J44.1 SHARON (obstructive sleep apnea) G47.33 Lower extremity edema R60.0
[2024-05-18] MEDS: collagenase oint 30 gm 1 APPLIC TOPICAL (10:00)
--- NOTE | 2024-05-18 11:20 | PC.SOCIAL ---
IMM Updated Updated pt on IMM. No questions voiced. Provided pt a copy. Initialed, dated, & timed copy in chart.
[2024-05-18] MEDS: acetylcysteine 200 mg/mL SDV 4 mL INHALATION ×2 (13:46→20:25)
[2024-05-18 14:23] LABS: Urine Color Other (Yellow)
[2024-05-18 14:24] LABS: Bilirubin Urine Neg (Negative); Blood Urine 3+ (Negative); Glucose Urine UA Norm (Normal); Ketones Urine 1+ (Negative); Leukocyte Esterase Urine 2+ (Negative); Nitrate Urine Negative (Negative); Protein Urine 1+ (Negative); Urine Appearance Cloudy (CLEAR); Urobilinogen Urine Norm (Negative); pH Urine 5 (5-7)
[2024-05-18 14:25] LABS: Bacteria Urine 2+ /hpf; Mucus Urine 2+ /hpf; Potassium, Radom Urine 36 mmol/L; Squamous Epithelial Cell Urine 0-4 /hpf (0-5); Urine Creatinine 77 mg/dL (39-259); Urine Random Chloride 25 mmol/L; WBC Urine 15-25 /hpf (0-5)
[2024-05-18 14:26] LABS: Add Urine Culture? Yes; Other Sediment, Urine BUD YEAST W/HYPHAE
[2024-05-18 14:33] LABS: Urine Random Sodium 19 mmol/L
--- NOTE | 2024-05-18 14:40 | PM.PN ---
Subjective Subjective: Ramesh is 89 and has a fairly dramatically long list of medical problems that include chronic kidney disease, coronary disease, bypass surgery, mild aortic stenosis, varicose veins, tobacco abuse, atrial fibrillation, anticoagulation, chronic heart failure, COPD, dyslipidemia, sleep apnea, peripheral arterial disease with a history of a AAA repair, carotid endarterectomy and femoral-popliteal bypasses. He is chronically ill and elderly. Over the last several months he has been in and out of the hospital several times with multiple issues. This time he was admitted on the now a couple weeks ago with weakness and shortness of breath. He had congestive heart failure anemia with a hemoglobin of 7, chest pain and hypotension. He has suffered acute tubular necrosis. His BUN and creatinine are up to 106 and 3.1. He ended up on dialysis. He is still getting dialysis via a temporary dialysis catheter in his right internal jugular vein. He has been slowly improving but is still weak. He has no chest pain or other discomfort. He is not short of breath at rest. He does not have any appetite. Apparently in the past an attempt was made to intervene on the lesion in the [place] circumflex beyond the insertion of the graft. This was unsuccessful and so he has been treated medically. Fortunately, currently he is having no angina. Vitals/I&O/Wt Last Vital Signs Temp 98.0 F 05/18/24 11:57 Pulse 93 05/18/24 13:46 Resp 16 05/18/24 13:46 BP 120/74 05/18/24 11:57 Pulse Ox 93 05/18/24 13:46 O2 Del Method Nasal Cannula 05/18/24 13:46 O2 Flow Rate 3 05/18/24 13:46 FiO2 30 05/18/24 04:00 05/17/24 05/18/24 05/18/24 22:59 06:59 14:59 Intake Total 320 / 860 50 / 910 240 / 240 Output Total 100 / 100 Balance 320 / 860 -50 / 810 240 / 240 Weight last 48 hrs Weight 190 lb Weight 197 lb 5.019 oz Weight 192 lb 14.472 oz Physical Exam Narrative: GENERAL: In general he is comfortable at rest in the chair on the side of the bed HEENT: Exam within normal limits. NECK: Supple without jugular vein distention. The carotid upstroke is normal without bruits. BACK: Exam normal. LUNGS: Clear. HEART: Regular rate and rhythm. ABDOMEN: Benign without organomegaly or tenderness. EXTREMITIES: 3+ edema NEUROLOGIC: Exam normal. SKIN: Unremarkable. Urinary Catheter Management: Squires: Cath Placed During This Visit: yes Reason for Continuing Indwelling Catheter: Other Urinary Catheter Date of Insertion: 05/09/24 Urinary Catheter Time of Insertion: 14:29 Data 05/18/24 05:23 05/18/24 05:23 A&P Assessment and plan (1) Diastolic CHF: Qualifiers: Heart failure chronicity: acute on chronic Qualified Code(s): I50.33 - Acute on chronic diastolic (congestive) heart failure (2) Atrial fibrillation: Qualifiers: Atrial fibrillation type: persistent (not longstanding) Qualified Code(s): I48.19 - Other persistent atrial fibrillation (3) Hypotension: Qualifiers: Hypotension type: other hypotension type Qualified Code(s): I95.89 - Other hypotension (4) HTN (hypertension), benign: (5) CAD (coronary artery disease): Qualifiers: Associated angina: with stable angina Coronary Disease-Associated Artery/Lesion type: bypass graft [place] vs. transplanted heart: [place] heart Qualified Code(s): I25.708 - Atherosclerosis of coronary artery bypass graft(s), unspecified, with other forms of angina pectoris (6) Hyperlipidemia: Qualifiers: Hyperlipidemia type: unspecified Qualified Code(s): E78.5 - Hyperlipidemia, unspecified (7) Peripheral arterial disease: (8) Tobacco abuse: (9) Aortic stenosis: Qualifiers: Cardiac valve disease etiology: nonrheumatic Qualified Code(s): I35.0 - Nonrheumatic aortic (valve) stenosis (10) Atherosclerosis of coronary artery of [place] heart without angina pectoris: Qualifiers: Coronary Disease-Associated Artery/Lesion type: [place] artery Qualified Code(s): I25.10 - Atherosclerotic heart disease of [place] coronary artery without angina pectoris (11) Chronic anticoagulation: (12) Acute on chronic diastolic heart failure: (13) Atherosclerotic heart disease of [place] coronary artery with unstable angina pectoris: Qualifiers: [place] vs. transplanted heart: [place] heart Qualified Code(s): I25.110 - Atherosclerotic heart disease of [place] coronary artery with unstable angina pectoris (14) Acute on chronic renal failure: Qualifiers: Acute renal failure type: with acute tubular necrosis Chronic kidney disease stage: stage 3 (moderate) Chronic kidney disease stage 3 subtype: stage 3b (GFR 30-44) Qualified Code(s): N17.0 - Acute kidney failure with tubular necrosis; N18.32 - Chronic kidney disease, stage 3b (15) COPD with acute exacerbation: (16) On home oxygen therapy: (17) SHARON (obstructive sleep apnea): (18) S/P CABG (coronary artery bypass graft): (19) S/P AAA (abdominal aortic aneurysm) repair: Plan His cardiac status is stable. We did not make any changes. Apparently he has been free of any discomfort in his chest. He originally had some angina but now is on a long-acting nitrate Ranexa which seems to be controlling it. Blood pressures are running in the 120s. His heart rate is 93. We will continue to follow. Attestations Medical Necessity Statement*: Hospitalization for management of multiple chronic serious medical problems and High Time for a total of 60 minutes, includes reviewing past or interval history, examining/interviewing patient, counseling patient/family/other support, updating patient/family/other support, discussing plan of care with staff, communicating with other healthcare providers, documenting encounter and coordinating care Diagnoses Acute on chronic diastolic congestive heart failure I50.33 Heart failure chronicity: acute on chronic Persistent atrial fibrillation I48.19 Atrial fibrillation type: persistent (not longstanding) Other specified hypotension I95.89 Hypotension type: other hypotension type HTN (hypertension), benign I10 Coronary artery disease of bypass graft of [place] heart with stable angina pectoris I25.708 Associated angina: with stable angina Coronary Disease-Associated Artery/Lesion type: bypass graft [place] vs. transplanted heart: [place] heart Hyperlipidemia, unspecified hyperlipidemia type E78.5 Hyperlipidemia type: unspecified Peripheral arterial disease I73.9 Tobacco abuse Z72.0 Nonrheumatic aortic valve stenosis I35.0 Cardiac valve disease etiology: nonrheumatic Atherosclerosis of [place] coronary artery of [place] heart without angina pectoris I25.10 Coronary Disease-Associated Artery/Lesion type: [place] artery Chronic anticoagulation Z79.01 Acute on chronic diastolic heart failure I50.33 Atherosclerosis of [place] coronary artery of [place] heart with unstable angina pectoris I25.110 [place] vs. transplanted heart: [place] heart Acute renal failure with acute tubular necrosis superimposed on stage 3b chronic kidney disease N17.0; N18.32 Acute renal failure type: with acute tubular necrosis Chronic kidney disease stage: stage 3 (moderate) Chronic kidney disease stage 3 subtype: stage 3b (GFR 30-44) COPD with acute exacerbation J44.1 On home oxygen therapy Z99.81 SHARON (obstructive sleep apnea) G47.33 S/P CABG (coronary artery bypass graft) Z95.1 S/P AAA (abdominal aortic aneurysm) repair Z98.890; Z86.79
[2024-05-18] MEDS: sennosides 8.6 mg Tablet 17.2 MG PO (21:02)
[2024-05-18] MEDS: finasteride 5 mg Tablet PO (21:03)
[2024-05-18] MEDS: atorvastatin 40 mg Tablet PO (21:13)
[2024-05-19] VITALS (17 sets, daily range): BP systolic 92–124; BP diastolic 56–74; PULSE 78–103; RESP 14–21; TEMP 36.5–36.7; O2SAT 90–99
[2024-05-19] MEDS: morphine 4 mg/mL SDV 1 mL 2 MG IVP (00:55)
[2024-05-19] MEDS: ipratropium-albuterol 3 mL Neb INHALATION ×3 (02:05→20:02)
[2024-05-19] MEDS: acetylcysteine 200 mg/mL SDV 4 mL INHALATION ×3 (02:06→20:02)
[2024-05-19 06:20] LABS: Basophils % 0.1 %; Eosinophils % 0.4 %; Hematocrit 28.3 % (37-53); Lymphocytes # 0.4 10^3/uL (0.8-4.8); Lymphocytes % 3.9 %; Mean Corpuscular Hemoglobin 32.2 pg (27-33); Mean Corpuscular Volume 107.2 fl (82-101); Mean Platelet Volume 10.3 fL (7.4-10.4); Monocytes # 0.9 10^3/uL (0.2-0.9); Monocytes % 10.2 %; Neutrophils % 84.5 %; Nucleated Red Blood Cells % 0.2 %; Platelet Count 124 10^3/cmm (157-399); Red Blood Count 2.64 10^6/uL (3.85-5.65); Red Cell Distribution Width 20.2 % (12.1-15.1); White Blood Count 9.23 10^3/uL (3.29-11.43)
[2024-05-19 06:35] LABS: Alanine Aminotransferase 7 U/L (0-41); Albumin Level 3.8 g/dL (3.5-5.2); Alkaline Phosphatase 66 U/L (40-130); Anion Gap 17.6 (5-19); Aspartate Amino Transferase 22 U/L (0-40); Calcium 8.8 mg/dL (8.5-10.5); Carbon Dioxide 26 mmol/L (22-29); Chloride 104 mmol/L (98-107); Creatinine Clr Calc Pharmacy 16.5531; Glucose 97 mg/dL (65-115); Magnesium 2.6 mg/dL (1.7-2.3); Phosphorus 5.3 mg/dL (2.5-4.5); Potassium 4.6 mmol/L (3.5-5.1); Sodium 143 mmol/L (136-145); Total Bilirubin 0.7 mg/dL (0.15-1.2); Total Protein 5.8 g/dL (6.6-8.7)
[2024-05-19 06:54] LABS: Blood Urea Nitrogen 123 mg/dL (8-23); Osmolality Calculated 335 mOsm/kg (285-295)
[2024-05-19] MEDS: sevelamer 800 mg Tablet PO ×3 (08:54→21:15)
[2024-05-19] MEDS: ranolazine (12HR) 500 mg Tablet PO ×2 (08:54→17:47)
[2024-05-19] MEDS: carbidopa-levodopa 25-100mg Tablet 0.5 EACH PO ×3 (08:54→21:16)
[2024-05-19] MEDS: tamsulosin 0.4 mg Capsule PO (08:55)
[2024-05-19] MEDS: allopurinol 100 mg Tablet PO (08:55)
[2024-05-19] MEDS: sucralfate 1 gm Tablet PO ×4 (08:55→21:15)
[2024-05-19] MEDS: docusate sodium 100 mg Capsule PO ×2 (08:55→17:47)
[2024-05-19] MEDS: doxycycline 100 mg Tablet PO (08:55)
[2024-05-19] MEDS: guaiFENesin 600 mg Tablet PO ×2 (08:55→17:47)
[2024-05-19] MEDS: sennosides-docusate Tablet 1 TAB PO (08:55)
[2024-05-19] MEDS: lactobacillus 1 Tablet 2 TAB PO ×2 (08:57→17:47)
[2024-05-19] MEDS: pantoprazole DR 40 mg Tablet PO ×2 (08:57→17:47)
--- NOTE | 2024-05-19 10:06 | P.PN_ITS ---
Subjective 2 Subjective: is concerned that Mr. Hopper has not been eating well, that is why he is not having regular bowel movement Patient endorsed eating only 5 to 10% of his meals He is afraid that he will vomit if he eats too is felt Added Ensure I have recommended against TPN or PPN for now 950 mill overnight 200 noted in the back today Plan for dialysis of worsening uremia Vitals/I&O/Wt Last Vital Signs Temp 98.0 F 05/19/24 07:30 Pulse 94 05/19/24 08:43 Resp 20 H 05/19/24 08:34 BP 115/74 05/19/24 07:30 Pulse Ox 98 05/19/24 08:34 O2 Del Method Nasal Cannula 05/19/24 08:34 O2 Flow Rate 3 05/19/24 08:34 FiO2 35 05/19/24 04:00 05/18/24 05/19/24 05/19/24 22:59 06:59 14:59 Intake Total 480 / 950 0 / 950 Output Total 850 / 850 100 / 950 Balance -370 / 100 -100 / 0 Weight last 48 hrs Weight 88.541 kg Weight 86.183 kg Weight 84.6 kg Physical Exam 2 Narrative: Patient is sitting comfortably in his bed ate 10% of his meals Took his pills in front of me No sign of aspiration Sign of fluid load improving Patient not showing signs of uremia with asterixis, confusion, no active chest pain No pericardial rub Abdomen soft but distended Lower extremity edema present cellulitis improving Urinary Catheter Management: Squires: Cath Placed During This Visit: yes Reason for Continuing Indwelling Catheter: Other Urinary Catheter Date of Insertion: 05/09/24 Urinary Catheter Time of Insertion: 14:29 Data 05/19/24 05:29 05/19/24 05:29 A&P Assessment and plan (1) Diastolic CHF: Qualifiers: Heart failure chronicity: acute on chronic Qualified Code(s): I50.33 - Acute on chronic diastolic (congestive) heart failure (2) Acute on chronic diastolic heart failure: (3) Aortic stenosis: Qualifiers: Cardiac valve disease etiology: nonrheumatic Qualified Code(s): I35.0 - Nonrheumatic aortic (valve) stenosis (4) Peripheral arterial disease: (5) Atrial fibrillation: Qualifiers: Atrial fibrillation type: persistent (not longstanding) Qualified Code(s): I48.19 - Other persistent atrial fibrillation (6) Chronic anticoagulation: (7) Constipation: (8) GI bleeding: (9) Acute kidney injury superimposed on chronic kidney disease: (10) BPH (benign prostatic hyperplasia): Qualifiers: Lower urinary tract symptom presence: symptoms present Lower urinary tract symptom detail: urinary hesitancy Qualified Code(s): N40.1 - Benign prostatic hyperplasia with lower urinary tract symptoms; R39.11 - Hesitancy of micturition (11) Acute blood loss anemia: (12) Cellulitis: (13) RLS (restless legs syndrome): (14) On home oxygen therapy: (15) COPD with acute exacerbation: (16) SHARON (obstructive sleep apnea): (17) Lower extremity edema: Plan Acute diastolic CHF exacerbation Status post 2 sessions of dialysis, third session will be done today 05/19 Acute on chronic kidney disease: Third session of dialysis 05/19 For session of dialysis 05/15, ultrafiltration 05/16 dialysis catheter placement 05/15 Constipation: Poor p.o. intake add Ensure I would avoid adding TPN or PPN I would avoid giving him albumin which caused fluid overload with underlying diastolic CHF A-fib without RVR Off Eliquis and Plavix. Acute GI blood loss anemia Hemoglobin stable No plan for blood transfusion, getting iron Full code Resting tremors patient takes carbidopa levodopa Hypoxia:- at home uses 2 L currently on 4L Patient has volume overload and pulm edema signs, will repeat x-ray today, not anticipating thoracentesis as of now Disposition plan: Patient was to go home once his kidney function improved Attestations 2 Medical Necessity Statement*: Continue medical management Coding Level of Care Code 79317 Diagnoses Acute on chronic diastolic congestive heart failure I50.33 Heart failure chronicity: acute on chronic Acute on chronic diastolic heart failure I50.33 Nonrheumatic aortic valve stenosis I35.0 Cardiac valve disease etiology: nonrheumatic Peripheral arterial disease I73.9 Persistent atrial fibrillation I48.19 Atrial fibrillation type: persistent (not longstanding) Chronic anticoagulation Z79.01 Constipation K59.00 GI bleeding K92.2 Acute kidney injury superimposed on chronic kidney disease N17.9; N18.9 Benign prostatic hyperplasia with urinary hesitancy N40.1; R39.11 Lower urinary tract symptom presence: symptoms present Lower urinary tract symptom detail: urinary hesitancy Acute blood loss anemia D62 Cellulitis L03.90 RLS (restless legs syndrome) G25.81 On home oxygen therapy Z99.81 COPD with acute exacerbation J44.1 SHARON (obstructive sleep apnea) G47.33 Lower extremity edema R60.0
--- NOTE | 2024-05-19 11:27 | P.PN_ITS ---
Subjective 2 Subjective: Patient felt weak and had significant nausea last night. BUN and creatinine trending up. had HD today. Vitals/I&O/Wt Last Vital Signs Temp 98.0 F 05/19/24 07:30 Pulse 94 05/19/24 08:43 Resp 20 H 05/19/24 08:34 BP 115/74 05/19/24 07:30 Pulse Ox 98 05/19/24 08:34 O2 Del Method Nasal Cannula 05/19/24 08:34 O2 Flow Rate 3 05/19/24 08:34 FiO2 35 05/19/24 04:00 05/18/24 05/19/24 05/19/24 22:59 06:59 14:59 Intake Total 480 / 950 0 / 950 Output Total 850 / 850 100 / 950 Balance -370 / 100 -100 / 0 Weight last 48 hrs Weight 195 lb 3.2 oz Weight 190 lb Weight 186 lb 8.177 oz Physical Exam 2 Narrative: GENERAL: Patient is alert, awake and oriented x3. [] NECK: No jugular vein distension. [] HEENT: No cyanosis. No icterus. No pallor. [] HEART: Regular S1 and S2. Grade 3/6 systolic murmur LUNGS: Diminished air entry bilaterally CENTRAL NERVOUS SYSTEM: Grossly nonfocal. [] EXTREMITIES: Lower extremities with 1+ edema bilaterally. Urinary Catheter Management: Squires: Cath Placed During This Visit: yes Reason for Continuing Indwelling Catheter: Other Urinary Catheter Date of Insertion: 05/09/24 Urinary Catheter Time of Insertion: 14:29 Data 05/20/24 04:45 05/20/24 04:45 A&P Assessment and plan (1) Diastolic CHF: Qualifiers: Heart failure chronicity: acute on chronic Qualified Code(s): I50.33 - Acute on chronic diastolic (congestive) heart failure (2) Atrial fibrillation: Qualifiers: Atrial fibrillation type: persistent (not longstanding) Qualified Code(s): I48.19 - Other persistent atrial fibrillation (3) Hypotension: Qualifiers: Hypotension type: other hypotension type Qualified Code(s): I95.89 - Other hypotension (4) HTN (hypertension), benign: (5) CAD (coronary artery disease): Qualifiers: Associated angina: with stable angina Coronary Disease-Associated Artery/Lesion type: bypass graft [place] vs. transplanted heart: [place] heart Qualified Code(s): I25.708 - Atherosclerosis of coronary artery bypass graft(s), unspecified, with other forms of angina pectoris (6) Hyperlipidemia: Qualifiers: Hyperlipidemia type: unspecified Qualified Code(s): E78.5 - Hyperlipidemia, unspecified (7) Peripheral arterial disease: (8) Tobacco abuse: (9) Aortic stenosis: Qualifiers: Cardiac valve disease etiology: nonrheumatic Qualified Code(s): I35.0 - Nonrheumatic aortic (valve) stenosis (10) Atherosclerosis of coronary artery of [place] heart without angina pectoris: Qualifiers: Coronary Disease-Associated Artery/Lesion type: [place] artery Qualified Code(s): I25.10 - Atherosclerotic heart disease of [place] coronary artery without angina pectoris (11) Chronic anticoagulation: (12) Acute on chronic diastolic heart failure: (13) Atherosclerotic heart disease of [place] coronary artery with unstable angina pectoris: Qualifiers: [place] vs. transplanted heart: [place] heart Qualified Code(s): I25.110 - Atherosclerotic heart disease of [place] coronary artery with unstable angina pectoris (14) Acute on chronic renal failure: Qualifiers: Acute renal failure type: with acute tubular necrosis Chronic kidney disease stage: stage 3 (moderate) Chronic kidney disease stage 3 subtype: stage 3b (GFR 30-44) Qualified Code(s): N17.0 - Acute kidney failure with tubular necrosis; N18.32 - Chronic kidney disease, stage 3b (15) COPD with acute exacerbation: (16) On home oxygen therapy: (17) SHARON (obstructive sleep apnea): (18) S/P CABG (coronary artery bypass graft): (19) S/P AAA (abdominal aortic aneurysm) repair: Plan Patient's symptoms of weakness and nausea associated with uremia. He is getting dialysis. Nephrology following From cardiac standpoint, we will manage him medically at this point. Thank you for involving us with care of this patient. Will continue to follow. Please call questions. Attestations 2 Medical Necessity Statement*: Care expected to cross 2 midnights. Coding Level of Care Code Acute Code for Chg Fwd Diagnoses Acute on chronic diastolic congestive heart failure I50.33 Heart failure chronicity: acute on chronic Persistent atrial fibrillation I48.19 Atrial fibrillation type: persistent (not longstanding) Other specified hypotension I95.89 Hypotension type: other hypotension type HTN (hypertension), benign I10 Coronary artery disease of bypass graft of [place] heart with stable angina pectoris I25.708 Associated angina: with stable angina Coronary Disease-Associated Artery/Lesion type: bypass graft [place] vs. transplanted heart: [place] heart Hyperlipidemia, unspecified hyperlipidemia type E78.5 Hyperlipidemia type: unspecified Peripheral arterial disease I73.9 Tobacco abuse Z72.0 Nonrheumatic aortic valve stenosis I35.0 Cardiac valve disease etiology: nonrheumatic Atherosclerosis of [place] coronary artery of [place] heart without angina pectoris I25.10 Coronary Disease-Associated Artery/Lesion type: [place] artery Chronic anticoagulation Z79.01 Acute on chronic diastolic heart failure I50.33 Atherosclerosis of [place] coronary artery of [place] heart with unstable angina pectoris I25.110 [place] vs. transplanted heart: [place] heart Acute renal failure with acute tubular necrosis superimposed on stage 3b chronic kidney disease N17.0; N18.32 Acute renal failure type: with acute tubular necrosis Chronic kidney disease stage: stage 3 (moderate) Chronic kidney disease stage 3 subtype: stage 3b (GFR 30-44) COPD with acute exacerbation J44.1 On home oxygen therapy Z99.81 SHARON (obstructive sleep apnea) G47.33 S/P CABG (coronary artery bypass graft) Z95.1 S/P AAA (abdominal aortic aneurysm) repair Z98.890; Z86.79
--- NOTE | 2024-05-19 11:52 | PC.HD ---
Heparin 1000 units loading dose administered 3 minutes prior to treatment initiation via venous port of temporary HD catheter per house painting instructor's orders.
[2024-05-19] MEDS: ferric gluconate 125 MG in sodium chloride 0.9% (100 ml) 100 ML 110 MG IV (11:54)
[2024-05-19] MEDS: ondansetron 2 mg/ML SDV 2 mL 4 MG IVP (15:20)
--- NOTE | 2024-05-19 15:27 | P.PN_ITS ---
Subjective 2 Subjective: getting HD Medications: Reviewed: Yes Vitals/I&O/Wt Last Vital Signs Temp 98.1 F 05/19/24 14:56 Pulse 86 05/19/24 14:56 Resp 16 05/19/24 14:56 BP 124/68 05/19/24 14:56 Pulse Ox 98 05/19/24 08:34 O2 Del Method Nasal Cannula 05/19/24 08:34 O2 Flow Rate 3 05/19/24 08:34 FiO2 35 05/19/24 04:00 05/19/24 05/19/24 05/19/24 06:59 14:59 22:59 Intake Total 0 / 950 410 / 410 Output Total 100 / 950 2800 / 2800 Balance -100 / 0 -2390 / -2390 Weight last 48 hrs Weight 86 kg Weight 88.541 kg Weight 86.183 kg Weight 84.6 kg Physical Exam 2 Narrative: Elderly man sitting up in chair comfortable Vital signs noted. HEENT normocephalic/atraumatic. Neck is supple, positive right IJ permacath. Lungs dull bases, improved air movement bilaterally. Heart-irregular rhythm well-controlled, systolic murmur Abdomen is soft positive bowel sounds. Extremities decreased bilateral edema. Skin tears and edema are improving. Urinary Catheter Management: Squires: Cath Placed During This Visit: yes Reason for Continuing Indwelling Catheter: Other Urinary Catheter Date of Insertion: 05/09/24 Urinary Catheter Time of Insertion: 14:29 Data 05/19/24 05:29 05/19/24 05:29 A&P Assessment and plan (1) Acute kidney injury superimposed on chronic kidney disease: 89-year-old gentleman with A-fib, heart failure preserved EF, GI bleed, acute on chronic renal failure. 1. Acute on CKD : poor response to diuretics. The patient started dialysis on May 15, 2024. The patient had fluid removal on May 16 on May 17, 2024 via ultrafiltration.HD TODAY Will monitor I's and O's Daily and chemistries and assess for needs of dialysis versus renal recovery 2. Anemia management iron saturation is low at 17 ferritin 157-start IV iron. Use Epogen, and also may need IV iron. 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 PTH is 143 will monitor. Phosphorus is 5.5-continue phosphorus binder. . Patient was seen and examined using A/V equipment via a telehealth visit. The nurse examined the patient. Consent for telehealth and for hemodialysis was obtained from the patient and his family. Plan see above Trial of Bumex and see if he responds if not patient will need further dialysis. Attestations 2 Medical Necessity Statement*: per ritu Coding Level of Care Code Acute Code for Chg Fwd Diagnoses Acute kidney injury superimposed on chronic kidney disease N17.9; N18.9
[2024-05-19] MEDS: atorvastatin 40 mg Tablet PO (21:15)
[2024-05-19] MEDS: finasteride 5 mg Tablet PO (21:15)
[2024-05-19] MEDS: sennosides 8.6 mg Tablet 17.2 MG PO (21:16)
[2024-05-20] VITALS (13 sets, daily range): BP systolic 97–110; BP diastolic 50–65; PULSE 60–101; RESP 15–19; TEMP 36.3–37.1; O2SAT 93–98
[2024-05-20] MEDS: acetylcysteine 200 mg/mL SDV 4 mL INHALATION ×4 (02:01→20:13)
[2024-05-20] MEDS: ipratropium-albuterol 3 mL Neb INHALATION ×4 (02:01→20:13)
[2024-05-20 05:08] LABS: Basophils % 0.2 %; Eosinophils # 0.1 10^3/uL (0.0-0.8); Eosinophils % 0.6 %; Hematocrit 29.5 % (37-53); Lymphocytes # 0.5 10^3/uL (0.8-4.8); Lymphocytes % 3.9 %; Mean Corpuscular HGB Conc 29.8 g/dL (30-55); Mean Corpuscular Hemoglobin 31.7 pg (27-33); Mean Corpuscular Volume 106.1 fl (82-101); Mean Platelet Volume 10.3 fL (7.4-10.4); Monocytes # 1.1 10^3/uL (0.2-0.9); Monocytes % 9.8 %; Neutrophils # 9.73 10^3/uL (1.8-7.7); Neutrophils % 84.4 %; Nucleated Red Blood Cells % 0.3 %; Platelet Count 145 10^3/cmm (157-399); Red Blood Count 2.78 10^6/uL (3.85-5.65); Red Cell Distribution Width 19.9 % (12.1-15.1); White Blood Count 11.53 10^3/uL (3.29-11.43)
[2024-05-20 05:30] LABS: Alanine Aminotransferase 12 U/L (0-41); Alkaline Phosphatase 74 U/L (40-130); Anion Gap 16.3 (5-19); Aspartate Amino Transferase 23 U/L (0-40); Blood Urea Nitrogen 70 mg/dL (8-23); Calcium 8.6 mg/dL (8.5-10.5); Carbon Dioxide 28 mmol/L (22-29); Chloride 101 mmol/L (98-107); Creatinine Clr Calc Pharmacy 21.3585; Globulin 1.6 g/dL (1.3-4.6); Glucose 83 mg/dL (65-115); Magnesium 2.4 mg/dL (1.7-2.3); Osmolality Calculated 312 mOsm/kg (285-295); Phosphorus 3.8 mg/dL (2.5-4.5); Potassium 4.3 mmol/L (3.5-5.1); Sodium 141 mmol/L (136-145); Total Bilirubin 0.9 mg/dL (0.15-1.2); Total Protein 5.6 g/dL (6.6-8.7)
[2024-05-20] MEDS: sucralfate 1 gm Tablet PO ×4 (06:14→20:35)
--- NOTE | 2024-05-20 06:40 | P.PN_ITS ---
Subjective 2 Subjective: no new complaints Medications: Reviewed: Yes Vitals/I&O/Wt Last Vital Signs Temp 98.7 F 05/20/24 04:00 Pulse 92 05/20/24 06:09 Resp 18 05/20/24 04:00 BP 106/65 05/20/24 04:00 Pulse Ox 94 05/20/24 04:00 O2 Del Method Nasal Cannula 05/20/24 04:00 O2 Flow Rate 4 05/20/24 02:02 FiO2 35 05/19/24 23:15 05/19/24 05/19/24 05/20/24 14:59 22:59 06:59 Intake Total 410 / 410 340 / 750 Output Total 2800 / 2800 400 / 3200 100 / 3300 Balance -2390 / -2390 -60 / -2450 -100 / -2550 Weight last 48 hrs Weight 86.268 kg Weight 86 kg Weight 88.541 kg Physical Exam 2 Narrative: Elderly man sitting up in chair comfortable Vital signs noted. HEENT normocephalic/atraumatic. Neck is supple, positive right IJ permacath. Lungs dull bases, improved air movement bilaterally. Heart-irregular rhythm well-controlled, systolic murmur Abdomen is soft positive bowel sounds. Extremities decreased bilateral edema. Skin tears and edema are improving. Urinary Catheter Management: Squires: Cath Placed During This Visit: yes Reason for Continuing Indwelling Catheter: Other Urinary Catheter Date of Insertion: 05/09/24 Urinary Catheter Time of Insertion: 14:29 Data 05/21/24 05:40 05/21/24 05:40 A&P Assessment and plan (1) Acute kidney injury superimposed on chronic kidney disease: 89-year-old gentleman with A-fib, heart failure preserved EF, GI bleed, acute on chronic renal failure. 1. Acute on CKD : poor response to diuretics. The patient started dialysis on May 15, 2024. The patient had fluid removal on May 16 on May 17, 2024 last HD Thursday -watch renal fxn without hD over weekend ,if no recovery , will place tunnelled catheter next week 2. Anemia management iron saturation is low at 17 ferritin 157-start IV iron. Use Epogen, and also may need IV iron. 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 PTH is 143 will monitor. Phosphorus is 5.5-continue phosphorus binder. . Patient was seen and examined using A/V equipment via a telehealth visit. The nurse examined the patient. Consent for telehealth and for hemodialysis was obtained from the patient and his family. Attestations 2 Medical Necessity Statement*: per ritu Coding Level of Care Code Acute Code for Chg Fwd Diagnoses Acute kidney injury superimposed on chronic kidney disease N17.9; N18.9
[2024-05-20] MEDS: allopurinol 100 mg Tablet PO (09:24)
[2024-05-20] MEDS: sevelamer 800 mg Tablet PO ×3 (09:24→20:35)
[2024-05-20] MEDS: lactobacillus 1 Tablet 2 TAB PO ×2 (09:24→17:26)
[2024-05-20] MEDS: carbidopa-levodopa 25-100mg Tablet 0.5 EACH PO ×3 (09:24→20:35)
--- NOTE | 2024-05-20 09:24 | P.PN_ITS ---
Subjective 2 Subjective: Patient doing well. No chest pain. Still feels weak. Vitals/I&O/Wt Last Vital Signs Temp 98.0 F 05/20/24 08:00 Pulse 93 05/20/24 08:00 Resp 16 05/20/24 08:00 BP 110/62 05/20/24 08:00 Pulse Ox 97 05/20/24 08:00 O2 Del Method Nasal Cannula 05/20/24 08:00 O2 Flow Rate 4 05/20/24 07:23 FiO2 35 05/19/24 23:15 05/19/24 05/20/24 05/20/24 22:59 06:59 14:59 Intake Total 340 / 750 120 / 120 Output Total 400 / 3200 100 / 3300 Balance -60 / -2450 -100 / -2550 120 / 120 Weight last 48 hrs Weight 190 lb 3 oz Weight 189 lb 9.561 oz Weight 195 lb 3.2 oz Physical Exam 2 Narrative: GENERAL: Patient is alert, awake and oriented x3. [] NECK: No jugular vein distension. [] HEENT: No cyanosis. No icterus. No pallor. [] HEART: Regular S1 and S2. Grade 3/6 systolic murmur LUNGS: Diminished air entry bilaterally CENTRAL NERVOUS SYSTEM: Grossly nonfocal. [] EXTREMITIES: Lower extremities with 1+ edema bilaterally. Urinary Catheter Management: Squires: Cath Placed During This Visit: yes Reason for Continuing Indwelling Catheter: Other Urinary Catheter Date of Insertion: 05/09/24 Urinary Catheter Time of Insertion: 14:29 Data 05/22/24 04:47 05/22/24 04:47 A&P Assessment and plan (1) Diastolic CHF: Qualifiers: Heart failure chronicity: acute on chronic Qualified Code(s): I50.33 - Acute on chronic diastolic (congestive) heart failure (2) Atrial fibrillation: Qualifiers: Atrial fibrillation type: persistent (not longstanding) Qualified Code(s): I48.19 - Other persistent atrial fibrillation (3) Hypotension: Qualifiers: Hypotension type: other hypotension type Qualified Code(s): I95.89 - Other hypotension (4) HTN (hypertension), benign: (5) CAD (coronary artery disease): Qualifiers: Associated angina: with stable angina Coronary Disease-Associated Artery/Lesion type: bypass graft [place] vs. transplanted heart: [place] heart Qualified Code(s): I25.708 - Atherosclerosis of coronary artery bypass graft(s), unspecified, with other forms of angina pectoris (6) Hyperlipidemia: Qualifiers: Hyperlipidemia type: unspecified Qualified Code(s): E78.5 - Hyperlipidemia, unspecified (7) Peripheral arterial disease: (8) Tobacco abuse: (9) Aortic stenosis: Qualifiers: Cardiac valve disease etiology: nonrheumatic Qualified Code(s): I35.0 - Nonrheumatic aortic (valve) stenosis (10) Atherosclerosis of coronary artery of [place] heart without angina pectoris: Qualifiers: Coronary Disease-Associated Artery/Lesion type: [place] artery Qualified Code(s): I25.10 - Atherosclerotic heart disease of [place] coronary artery without angina pectoris (11) Chronic anticoagulation: (12) Acute on chronic diastolic heart failure: (13) Atherosclerotic heart disease of [place] coronary artery with unstable angina pectoris: Qualifiers: [place] vs. transplanted heart: [place] heart Qualified Code(s): I25.110 - Atherosclerotic heart disease of [place] coronary artery with unstable angina pectoris (14) Acute on chronic renal failure: Qualifiers: Acute renal failure type: with acute tubular necrosis Chronic kidney disease stage: stage 3 (moderate) Chronic kidney disease stage 3 subtype: stage 3b (GFR 30-44) Qualified Code(s): N17.0 - Acute kidney failure with tubular necrosis; N18.32 - Chronic kidney disease, stage 3b (15) COPD with acute exacerbation: (16) On home oxygen therapy: (17) SHARON (obstructive sleep apnea): (18) S/P CABG (coronary artery bypass graft): (19) S/P AAA (abdominal aortic aneurysm) repair: Plan No chest pain. Dialysis per nephrology recommendations.Continue current medications. We will continue medical therapy from cardiac standpoint. Thank you for involving us with care of this patient. Will continue to follow. Please call questions. Attestations 2 Medical Necessity Statement*: Care expected to cross 2 midnights. Coding Level of Care Code Acute Code for Chg Fwd Diagnoses Acute on chronic diastolic congestive heart failure I50.33 Heart failure chronicity: acute on chronic Persistent atrial fibrillation I48.19 Atrial fibrillation type: persistent (not longstanding) Other specified hypotension I95.89 Hypotension type: other hypotension type HTN (hypertension), benign I10 Coronary artery disease of bypass graft of [place] heart with stable angina pectoris I25.708 Associated angina: with stable angina Coronary Disease-Associated Artery/Lesion type: bypass graft [place] vs. transplanted heart: [place] heart Hyperlipidemia, unspecified hyperlipidemia type E78.5 Hyperlipidemia type: unspecified Peripheral arterial disease I73.9 Tobacco abuse Z72.0 Nonrheumatic aortic valve stenosis I35.0 Cardiac valve disease etiology: nonrheumatic Atherosclerosis of [place] coronary artery of [place] heart without angina pectoris I25.10 Coronary Disease-Associated Artery/Lesion type: [place] artery Chronic anticoagulation Z79.01 Acute on chronic diastolic heart failure I50.33 Atherosclerosis of [place] coronary artery of [place] heart with unstable angina pectoris I25.110 [place] vs. transplanted heart: [place] heart Acute renal failure with acute tubular necrosis superimposed on stage 3b chronic kidney disease N17.0; N18.32 Acute renal failure type: with acute tubular necrosis Chronic kidney disease stage: stage 3 (moderate) Chronic kidney disease stage 3 subtype: stage 3b (GFR 30-44) COPD with acute exacerbation J44.1 On home oxygen therapy Z99.81 SHARON (obstructive sleep apnea) G47.33 S/P CABG (coronary artery bypass graft) Z95.1 S/P AAA (abdominal aortic aneurysm) repair Z98.890; Z86.79
[2024-05-20] MEDS: amiodarone 200 mg Tablet 400 MG PO ×2 (09:25→17:27)
[2024-05-20] MEDS: sennosides-docusate Tablet 1 TAB PO (09:25)
[2024-05-20] MEDS: docusate sodium 100 mg Capsule PO ×2 (09:25→17:27)
[2024-05-20] MEDS: ranolazine (12HR) 500 mg Tablet PO ×2 (09:25→17:26)
[2024-05-20] MEDS: pantoprazole DR 40 mg Tablet PO ×2 (09:25→17:27)
[2024-05-20] MEDS: guaiFENesin 600 mg Tablet PO ×2 (09:25→17:27)
[2024-05-20] MEDS: tamsulosin 0.4 mg Capsule PO (09:26)
--- NOTE | 2024-05-20 09:48 | PC.CHAP ---
Pastoral Care Encounter/Spiritual Assessment Type of Contact [] Declined corporate administrative assistant visit [] Patient/Family/Request visit [] Outpatient visit [] Follow-up visit [] Physician referral [] Code/Alert [x] Routine visit [] Staff referral [] Actively dying [] Patient sleeping [x] Family support [] [] Out of room [] Palliative care [] [] Receiving care in room [] Pre-surgical visit [] Trauma [] Long length of stay [] ICU visit [] Other: Relational/Emotional Strength [x] Patient feels connected with others/family/visitors/staff [] Distress [] Loneliness/isolation [] Abandonment Spirituality of Patient [x] Person of Katherine [x] Attends Gnosticist of their Katherine [x] Believes in Prayer [x] Reads Bible or Latter-Day materials [] There are Spiritual issues to be addressed Fuel Operator Interventions [x] Prayer [x] Active listening [x] Non-anxious presence [x] Spiritual/emotional support [] Crisis/trauma care [] Spiritual counseling [] Bereavement support [] Provided bereavement packet [] Provided Bible/devotional materials [] Provided toy/stuffed animal, coloring book to patient or family member [] Provided Communion [] Anointing/[place] [] Salvation [x] Completed spiritual assessment [] Other: Impact on Illness or Injury [] Angry [] Fearful [] Anxious [] Often cries [] Exhaustion [] Unable to work [] Unable to attend voodoo [] Unable to walk/stand [] Unable to read [] Unable to drive [] Unable to eat/drink [] Unable to sleep [] Unable to be with family [] Patient intubated [] Other: Summary Time spent with patient 5 min
[2024-05-20] MEDS: bumetanide 0.25 mg/mL SDV 10 mL 2 MG IVP (10:34)
--- NOTE | 2024-05-20 10:49 | P.PN_ITS ---
Subjective 2 Subjective: Yesterday he was a bit groggy and hypotensive after dialysis Stating that because of the restless leg and nausea he could not sleep well last night General surgery notified plan for permanent dialysis catheter placement on Thursday Uremia improved Patient is getting more forgetful Will request KUB Patient reported passage of flatus He does not think he is constipated Vitals/I&O/Wt Last Vital Signs Temp 98.0 F 05/20/24 08:00 Pulse 93 05/20/24 08:00 Resp 16 05/20/24 08:00 BP 110/62 05/20/24 08:00 Pulse Ox 97 05/20/24 08:00 O2 Del Method Nasal Cannula 05/20/24 08:00 O2 Flow Rate 4 05/20/24 07:23 FiO2 35 05/19/24 23:15 05/19/24 05/20/24 05/20/24 22:59 06:59 14:59 Intake Total 340 / 750 120 / 120 Output Total 400 / 3200 100 / 3300 Balance -60 / -2450 -100 / -2550 120 / 120 Weight last 48 hrs Weight 86.268 kg Weight 86 kg Weight 88.541 kg Physical Exam 2 Narrative: Patient is sitting in a chair Forgetful Not able to concentrate for a long time Poor attention span Sign of hypervolemia improving Lower extremity cellulitis improved Scab tissue with sign of granulation tissue noted on lower extremity Patient able to answer simple questions Nonfocal neuroexam S1, S2 variable A-fib with RVR Distended abdomen nontender bowel sounds sluggish Bilateral breath sounds currently patient is on 3 L Urinary Catheter Management: Squires: Cath Placed During This Visit: yes Reason for Continuing Indwelling Catheter: Other Urinary Catheter Date of Insertion: 05/09/24 Urinary Catheter Time of Insertion: 14:29 Data 05/20/24 04:45 05/20/24 04:45 Micro: Microbiology 05/18/24 13:21 Urine Culture - Preliminary Urine,Clean Catch Yeast species A&P Assessment and plan (1) Diastolic CHF: Qualifiers: Heart failure chronicity: acute on chronic Qualified Code(s): I50.33 - Acute on chronic diastolic (congestive) heart failure (2) Acute on chronic diastolic heart failure: (3) Aortic stenosis: Qualifiers: Cardiac valve disease etiology: nonrheumatic Qualified Code(s): I35.0 - Nonrheumatic aortic (valve) stenosis (4) Peripheral arterial disease: (5) Atrial fibrillation: Qualifiers: Atrial fibrillation type: persistent (not longstanding) Qualified Code(s): I48.19 - Other persistent atrial fibrillation (6) Chronic anticoagulation: (7) Constipation: (8) GI bleeding: (9) Acute kidney injury superimposed on chronic kidney disease: (10) BPH (benign prostatic hyperplasia): Qualifiers: Lower urinary tract symptom presence: symptoms present Lower urinary tract symptom detail: urinary hesitancy Qualified Code(s): N40.1 - Benign prostatic hyperplasia with lower urinary tract symptoms; R39.11 - Hesitancy of micturition (11) Acute blood loss anemia: (12) Cellulitis: (13) RLS (restless legs syndrome): (14) On home oxygen therapy: (15) COPD with acute exacerbation: (16) SHARON (obstructive sleep apnea): (17) Lower extremity edema: Plan Acute diastolic CHF exacerbation Status post 2 sessions of dialysis, third session 05/19 Acute on chronic kidney disease: Third session of dialysis 05/19 For session of dialysis 05/15, ultrafiltration 05/16 dialysis catheter placement 05/15 Plan for permanent dialysis catheter on Thursday Patient may need long-term dialysis for a few months outpatient General surgery has been notified Constipation: Poor p.o. intake add Ensure I would avoid adding TPN or PPN I would avoid giving him albumin which caused fluid overload with underlying diastolic CHF A-fib with RVR Continue amiodarone at twice daily regimen 400 mg holding off on Cardizem secondary to low blood pressure Off Eliquis and Plavix secondary to GI bleed required 2 unit PRBC Acute GI blood loss anemia Hemoglobin stable Status post 2 unit PRBC No plan for blood transfusion, getting iron First transfusion was done on admission, secondary to given 05/13 Hematuria resolved EGD done 05/14 Full code Lower extremity edema: Improving Resting tremors patient takes carbidopa levodopa Continue ropinirole Intermittent chest pain: As per cardiology continue medical management Patient has not experienced any demand ischemia or chest pain after dialysis Not a candidate for coronary intervention Hypoxia:- at home uses 2 L currently on 3L Disposition plan: Patient was to go home once his kidney function improved, final decision will be made after we place permanent dialysis catheter we have recommended SNF but family is wanting home health Attestations 2 Medical Necessity Statement*: Patient will stay until next week Diagnoses Acute on chronic diastolic congestive heart failure I50.33 Heart failure chronicity: acute on chronic Acute on chronic diastolic heart failure I50.33 Nonrheumatic aortic valve stenosis I35.0 Cardiac valve disease etiology: nonrheumatic Peripheral arterial disease I73.9 Persistent atrial fibrillation I48.19 Atrial fibrillation type: persistent (not longstanding) Chronic anticoagulation Z79.01 Constipation K59.00 GI bleeding K92.2 Acute kidney injury superimposed on chronic kidney disease N17.9; N18.9 Benign prostatic hyperplasia with urinary hesitancy N40.1; R39.11 Lower urinary tract symptom presence: symptoms present Lower urinary tract symptom detail: urinary hesitancy Acute blood loss anemia D62 Cellulitis L03.90 RLS (restless legs syndrome) G25.81 On home oxygen therapy Z99.81 COPD with acute exacerbation J44.1 SHARON (obstructive sleep apnea) G47.33 Lower extremity edema R60.0
--- NOTE | 2024-05-20 10:49 | PC.SOCIAL ---
IMM Updated Updated pt on IMM. No questions voiced. Provided pt a copy. Initialed, dated, & timed copy in chart.
--- NOTE | 2024-05-20 10:51 | XR_ITS ---
WS: [id number] XR KUB portable [id number] REASON FOR EXAM: Nausea FINDINGS: No free air or retroperitoneal air. Bowel gas pattern is unremarkable with no significant bowel distention. Right calcified gallbladder calculus. No mass is identified. Aortic stent graft. XR/XR KUB portable [id number] IMPRESSION: No acute abnormality.
[2024-05-20] MEDS: ferric gluconate 125 MG in sodium chloride 0.9% (100 ml) 100 ML 110 MG IV (11:13)
[2024-05-20 16:32] LABS: Fungitell 1-3-B Glucan Assay 67 pg/ml; Interpretation Indeterminate (Negative)
[2024-05-20] MEDS: ropinirole 2 mg Tablet 1 MG PO (17:26)
[2024-05-20] MEDS: midodrine 5 mg TABLET PO (17:27)
[2024-05-20] MEDS: finasteride 5 mg Tablet PO (20:35)
[2024-05-20] MEDS: atorvastatin 40 mg Tablet PO (20:35)
[2024-05-20] MEDS: sennosides 8.6 mg Tablet 17.2 MG PO (20:35)
[2024-05-21] VITALS (17 sets, daily range): BP systolic 87–114; BP diastolic 54–68; PULSE 67–98; RESP 16–20; TEMP 36.6–36.8; O2SAT 95–98
[2024-05-21] MEDS: ipratropium-albuterol 3 mL Neb INHALATION ×5 (02:13→20:30)
[2024-05-21] MEDS: acetylcysteine 200 mg/mL SDV 4 mL INHALATION ×4 (02:14→20:30)
[2024-05-21 05:56] LABS: Basophils % 0.1 %; Eosinophils # 0.1 10^3/uL (0.0-0.8); Eosinophils % 0.8 %; Hematocrit 26.3 % (37-53); Lymphocytes # 0.4 10^3/uL (0.8-4.8); Lymphocytes % 4.1 %; Mean Corpuscular HGB Conc 30.4 g/dL (30-55); Mean Corpuscular Hemoglobin 31.6 pg (27-33); Mean Platelet Volume 9.9 fL (7.4-10.4); Monocytes # 0.9 10^3/uL (0.2-0.9); Monocytes % 9.2 %; Neutrophils # 8.52 10^3/uL (1.8-7.7); Neutrophils % 85.2 %; Nucleated Red Blood Cells % 0 %; Platelet Count 121 10^3/cmm (157-399); Red Blood Count 2.53 10^6/uL (3.85-5.65); Red Cell Distribution Width 19.9 % (12.1-15.1)
[2024-05-21] MEDS: sucralfate 1 gm Tablet PO ×4 (06:12→20:00)
[2024-05-21 06:25] LABS: Alanine Aminotransferase 11 U/L (0-41); Albumin Level 3.6 g/dL (3.5-5.2); Alkaline Phosphatase 75 U/L (40-130); Anion Gap 14.1 (5-19); Aspartate Amino Transferase 21 U/L (0-40); Calcium 8.5 mg/dL (8.5-10.5); Carbon Dioxide 28 mmol/L (22-29); Chloride 102 mmol/L (98-107); Creatinine Clr Calc Pharmacy 16.9455; Globulin 1.7 g/dL (1.3-4.6); Glucose 99 mg/dL (65-115); Magnesium 2.3 mg/dL (1.7-2.3); Osmolality Calculated 316 mOsm/kg (285-295); Phosphorus 3.6 mg/dL (2.5-4.5); Potassium 4.1 mmol/L (3.5-5.1); Sodium 140 mmol/L (136-145); Total Bilirubin 0.7 mg/dL (0.15-1.2); Total Protein 5.3 g/dL (6.6-8.7)
--- NOTE | 2024-05-21 06:31 | P.PN_ITS ---
Subjective 2 Subjective: no new c/o Medications: Reviewed: Yes Vitals/I&O/Wt Last Vital Signs Temp 98.1 F 05/21/24 04:00 Pulse 87 05/21/24 04:00 Resp 18 05/21/24 04:00 BP 94/55 05/21/24 04:00 Pulse Ox 98 05/21/24 04:00 O2 Del Method Nasal Cannula 05/21/24 04:00 O2 Flow Rate 4 05/21/24 02:14 FiO2 35 05/19/24 23:15 05/20/24 05/20/24 05/21/24 14:59 22:59 06:59 Intake Total 350 / 350 240 / 590 Output Total 250 / 250 50 / 300 Balance 350 / 350 -10 / 340 -50 / 290 Weight last 48 hrs Weight 87.317 kg Weight 86.268 kg Weight 86 kg Physical Exam 2 Narrative: Elderly man sitting up in chair comfortable Vital signs noted. HEENT normocephalic/atraumatic. Neck is supple, positive right IJ permacath. Lungs dull bases, improved air movement bilaterally. Heart-irregular rhythm well-controlled, systolic murmur Abdomen is soft positive bowel sounds. Extremities decreased bilateral edema. Skin tears and edema are improving. Urinary Catheter Management: Squires: Cath Placed During This Visit: yes Reason for Continuing Indwelling Catheter: Other Urinary Catheter Date of Insertion: 05/09/24 Urinary Catheter Time of Insertion: 14:29 Data 05/21/24 05:40 05/21/24 05:40 Micro: Microbiology 05/18/24 13:21 Urine Culture - Preliminary Urine,Clean Catch Yeast species A&P Assessment and plan (1) Acute kidney injury superimposed on chronic kidney disease: 89-year-old gentleman with A-fib, heart failure preserved EF, GI bleed, acute on chronic renal failure. 1. Acute on CKD : poor response to diuretics. The patient started dialysis on May 15, 2024. The patient had fluid removal on May 16 on May 17, 2024 last HD -no renal recovery noted , will place tunnelled catheter next week 2. Anemia management: sec to blood loss , s/p 2 units PRBCs and s/p EGD iron saturation is low at 17 ferritin 157-start IV iron. Use Epogen, and also may need IV iron. 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 PTH is 143 will monitor. Phosphorus is 5.5-continue phosphorus binder. . Patient was seen and examined using A/V equipment via a telehealth visit. The nurse examined the patient. Consent for telehealth and for hemodialysis was obtained from the patient and his family. Attestations 2 Medical Necessity Statement*: per medicine Coding Level of Care Code Acute Code for [facility] Fwd Diagnoses Acute kidney injury superimposed on chronic kidney disease N17.9; N18.9
[2024-05-21 06:33] LABS: Blood Urea Nitrogen 84 mg/dL (8-23)
[2024-05-21] MEDS: acetaminophen 325 mg Tablet 650 MG PO (08:39)
[2024-05-21] MEDS: ferric gluconate 125 MG in sodium chloride 0.9% (100 ml) 100 ML 110 MG IV (08:40)
[2024-05-21] MEDS: lactobacillus 1 Tablet 2 TAB PO ×2 (08:41→17:22)
[2024-05-21] MEDS: carbidopa-levodopa 25-100mg Tablet 0.5 EACH PO (08:41)
[2024-05-21] MEDS: sevelamer 800 mg Tablet PO ×3 (08:42→20:00)
[2024-05-21] MEDS: amiodarone 200 mg Tablet 400 MG PO (08:43)
[2024-05-21] MEDS: ranolazine (12HR) 500 mg Tablet PO ×2 (08:43→17:22)
[2024-05-21] MEDS: midodrine 5 mg TABLET PO (08:43)
[2024-05-21] MEDS: allopurinol 100 mg Tablet PO (08:44)
[2024-05-21] MEDS: guaiFENesin 600 mg Tablet PO ×2 (08:44→17:23)
[2024-05-21] MEDS: tamsulosin 0.4 mg Capsule PO (08:45)
[2024-05-21] MEDS: sennosides-docusate Tablet 1 TAB PO (08:46)
[2024-05-21] MEDS: pantoprazole DR 40 mg Tablet PO ×2 (08:46→17:23)
[2024-05-21] MEDS: docusate sodium 100 mg Capsule PO ×2 (08:46→17:23)
[2024-05-21] MEDS: sodium chloride 0.9% 250 ML IV (09:30)
--- NOTE | 2024-05-21 10:07 | P.PN_ITS ---
Subjective 2 Subjective: Patient is drowsy. No chest pain. Vitals/I&O/Wt Last Vital Signs Temp 97.9 F 05/21/24 07:52 Pulse 92 05/21/24 07:52 Resp 17 05/21/24 07:52 BP 89/54 05/21/24 07:52 Pulse Ox 97 05/21/24 07:52 O2 Del Method Nasal Cannula 05/21/24 07:52 O2 Flow Rate 3 05/21/24 07:45 FiO2 35 05/19/24 23:15 05/20/24 05/21/24 05/21/24 22:59 06:59 14:59 Intake Total 240 / 590 110 / 110 Output Total 250 / 250 50 / 300 Balance -10 / 340 -50 / 290 110 / 110 Weight last 48 hrs Weight 192 lb 8 oz Weight 190 lb 3 oz Weight 189 lb 9.561 oz Physical Exam 2 Narrative: GENERAL: Patient is sleepy NECK: No jugular vein distension. [] HEENT: No cyanosis. No icterus. No pallor. [] HEART: Regular S1 and S2. Grade 3/6 systolic murmur LUNGS: Diminished air entry bilaterally CENTRAL NERVOUS SYSTEM: Grossly nonfocal. [] EXTREMITIES: Lower extremities with 1+ edema bilaterally. Urinary Catheter Management: Squires: Cath Placed During This Visit: yes Reason for Continuing Indwelling Catheter: Other Urinary Catheter Date of Insertion: 05/09/24 Urinary Catheter Time of Insertion: 14:29 Data 05/22/24 04:47 05/22/24 04:47 Micro: Microbiology 05/18/24 13:21 Urine Culture - Preliminary Urine,Clean Catch Yeast species A&P Assessment and plan (1) Diastolic CHF: Qualifiers: Heart failure chronicity: acute on chronic Qualified Code(s): I50.33 - Acute on chronic diastolic (congestive) heart failure (2) Atrial fibrillation: Qualifiers: Atrial fibrillation type: persistent (not longstanding) Qualified Code(s): I48.19 - Other persistent atrial fibrillation (3) Hypotension: Qualifiers: Hypotension type: other hypotension type Qualified Code(s): I95.89 - Other hypotension (4) HTN (hypertension), benign: (5) CAD (coronary artery disease): Qualifiers: Associated angina: with stable angina Coronary Disease-Associated Artery/Lesion type: bypass graft [place] vs. transplanted heart: [place] heart Qualified Code(s): I25.708 - Atherosclerosis of coronary artery bypass graft(s), unspecified, with other forms of angina pectoris (6) Hyperlipidemia: Qualifiers: Hyperlipidemia type: unspecified Qualified Code(s): E78.5 - Hyperlipidemia, unspecified (7) Peripheral arterial disease: (8) Tobacco abuse: (9) Aortic stenosis: Qualifiers: Cardiac valve disease etiology: nonrheumatic Qualified Code(s): I35.0 - Nonrheumatic aortic (valve) stenosis (10) Atherosclerosis of coronary artery of [place] heart without angina pectoris: Qualifiers: Coronary Disease-Associated Artery/Lesion type: [place] artery Qualified Code(s): I25.10 - Atherosclerotic heart disease of [place] coronary artery without angina pectoris (11) Chronic anticoagulation: (12) Acute on chronic diastolic heart failure: (13) Atherosclerotic heart disease of [place] coronary artery with unstable angina pectoris: Qualifiers: [place] vs. transplanted heart: [place] heart Qualified Code(s): I25.110 - Atherosclerotic heart disease of [place] coronary artery with unstable angina pectoris (14) Acute on chronic renal failure: Qualifiers: Acute renal failure type: with acute tubular necrosis Chronic kidney disease stage: stage 3 (moderate) Chronic kidney disease stage 3 subtype: stage 3b (GFR 30-44) Qualified Code(s): N17.0 - Acute kidney failure with tubular necrosis; N18.32 - Chronic kidney disease, stage 3b (15) COPD with acute exacerbation: (16) On home oxygen therapy: (17) SHARON (obstructive sleep apnea): (18) S/P CABG (coronary artery bypass graft): (19) S/P AAA (abdominal aortic aneurysm) repair: Plan Patient is stable from cardiac standpoint. Continue with medical therapy. Dialysis per nephrology team. Thank you for involving us with care of this patient. Will continue to follow. Please call questions. Attestations 2 Medical Necessity Statement*: Care expected to cross 2 midnights. Coding Level of Care Code Acute Code for Chg Fwd Diagnoses Acute on chronic diastolic congestive heart failure I50.33 Heart failure chronicity: acute on chronic Persistent atrial fibrillation I48.19 Atrial fibrillation type: persistent (not longstanding) Other specified hypotension I95.89 Hypotension type: other hypotension type HTN (hypertension), benign I10 Coronary artery disease of bypass graft of [place] heart with stable angina pectoris I25.708 Associated angina: with stable angina Coronary Disease-Associated Artery/Lesion type: bypass graft [place] vs. transplanted heart: [place] heart Hyperlipidemia, unspecified hyperlipidemia type E78.5 Hyperlipidemia type: unspecified Peripheral arterial disease I73.9 Tobacco abuse Z72.0 Nonrheumatic aortic valve stenosis I35.0 Cardiac valve disease etiology: nonrheumatic Atherosclerosis of [place] coronary artery of [place] heart without angina pectoris I25.10 Coronary Disease-Associated Artery/Lesion type: [place] artery Chronic anticoagulation Z79.01 Acute on chronic diastolic heart failure I50.33 Atherosclerosis of [place] coronary artery of [place] heart with unstable angina pectoris I25.110 [place] vs. transplanted heart: [place] heart Acute renal failure with acute tubular necrosis superimposed on stage 3b chronic kidney disease N17.0; N18.32 Acute renal failure type: with acute tubular necrosis Chronic kidney disease stage: stage 3 (moderate) Chronic kidney disease stage 3 subtype: stage 3b (GFR 30-44) COPD with acute exacerbation J44.1 On home oxygen therapy Z99.81 SHARON (obstructive sleep apnea) G47.33 S/P CABG (coronary artery bypass graft) Z95.1 S/P AAA (abdominal aortic aneurysm) repair Z98.890; Z86.79
--- NOTE | 2024-05-21 10:25 | P.PN_ITS ---
Subjective 2 Subjective: This is a 89-year-old male who is admitted with acute kidney injury and suspected blood loss anemia. I know the patient for a previous temporary dialysis catheter placed on the right IJ vein. I have been asked to convert the catheter to a tunneled dialysis catheter for long-term dialysis. Patient and family member are in agreement, the only concern is that at the moment the patient has significant periods of hypotension and they are concerned of the possibility of dialysis will not be tolerated. Vitals/I&O/Wt Last Vital Signs Temp 97.9 F 05/21/24 07:52 Pulse 92 05/21/24 07:52 Resp 17 05/21/24 07:52 BP 89/54 05/21/24 07:52 Pulse Ox 97 05/21/24 07:52 O2 Del Method Nasal Cannula 05/21/24 07:52 O2 Flow Rate 3 05/21/24 07:45 FiO2 35 05/19/24 23:15 05/20/24 05/21/24 05/21/24 22:59 06:59 14:59 Intake Total 240 / 590 590 / 590 Output Total 250 / 250 50 / 300 Balance -10 / 340 -50 / 290 590 / 590 Weight last 48 hrs Weight 192 lb 8 oz Weight 190 lb 3 oz Weight 189 lb 9.561 oz Physical Exam 2 Neck/C-Spine: OTHER: There is a dialysis catheter on the right side of the neck, appears clean and noninfected Chest: OTHER: Normal upper chest Urinary Catheter Management: Squires: Cath Placed During This Visit: yes Reason for Continuing Indwelling Catheter: Other Urinary Catheter Date of Insertion: 05/09/24 Urinary Catheter Time of Insertion: 14:29 Data 05/21/24 05:40 05/21/24 05:40 Micro: Microbiology 05/18/24 13:21 Urine Culture - Preliminary Urine,Clean Catch Yeast species A&P Assessment and plan (1) CKD (chronic kidney disease): Qualifiers: Chronic kidney disease stage: stage 3 (moderate) Chronic kidney disease stage 3 subtype: stage 3a (GFR 45-59) Qualified Code(s): N18.31 - Chronic kidney disease, stage 3a (2) Acute on chronic renal failure: Qualifiers: Acute renal failure type: with acute tubular necrosis Chronic kidney disease stage: stage 3 (moderate) Chronic kidney disease stage 3 subtype: stage 3b (GFR 30-44) Qualified Code(s): N17.0 - Acute kidney failure with tubular necrosis; N18.32 - Chronic kidney disease, stage 3b Plan After complete history and physical examination I updated the patient and family members regarding need of tunneled dialysis catheter. If patient is deemed an appropriate candidate for dialysis by nephrology medical team I agree to proceed with placement of tunneled dialysis catheter on Thursday. I talked to the family member and the patient and explained that since he already has a catheter in the neck I will probably provide a replacement over the wire to minimize the risk of complications and possibility of pneumothorax during insertion. They agreeable to this. In the case of failure of this approach we will have to put a new catheter on the left side of the neck. I have discussed all risk and benefits of the procedure including the risk of pneumothorax, cannulation of the carotid artery, major bleeding, damage to surrounding structures, need for additional surgical interventions, perforation of the blood vessels at the level of the chest, perforation of the heart leading to cardiac tamponade, sepsis and . I have explained that after catheters placed there is risk of infection and catheter nonfunction. Patient and family members agree, we will proceed with tunneled catheter placement on Thursday. Attestations 2 Medical Necessity Statement*: Per medical team Coding Level of Care Code Acute Code for [facility] Fwd Diagnoses Stage 3a chronic kidney disease N18.31 Chronic kidney disease stage: stage 3 (moderate) Chronic kidney disease stage 3 subtype: stage 3a (GFR 45-59) Acute renal failure with acute tubular necrosis superimposed on stage 3b chronic kidney disease N17.0; N18.32 Acute renal failure type: with acute tubular necrosis Chronic kidney disease stage: stage 3 (moderate) Chronic kidney disease stage 3 subtype: stage 3b (GFR 30-44)
--- NOTE | 2024-05-21 11:31 | P.PN_ITS ---
Subjective 2 Subjective: Leukocytosis improved Hemoglobin stable KUB unremarkable Patient complaining of nonproductive cough Chest congestion Has been very groggy since his dialysis yesterday Blood pressure was low this morning intravascular depleted given 250 mL bolus only Urine output 300 mL Plan for permacath placement on Thursday Vitals/I&O/Wt Last Vital Signs Temp 97.9 F 05/21/24 07:52 Pulse 92 05/21/24 07:52 Resp 17 05/21/24 07:52 BP 89/54 05/21/24 07:52 Pulse Ox 97 05/21/24 07:52 O2 Del Method Nasal Cannula 05/21/24 07:52 O2 Flow Rate 3 05/21/24 07:45 FiO2 35 05/19/24 23:15 05/20/24 05/21/24 05/21/24 22:59 06:59 14:59 Intake Total 240 / 590 840 / 840 Output Total 250 / 250 50 / 300 Balance -10 / 340 -50 / 290 840 / 840 Weight last 48 hrs Weight 87.317 kg Weight 86.268 kg Weight 86 kg Physical Exam 2 Narrative: Patient looks groggy however able to answer my question appropriate Able to follow commands Skin wrinkling is evident Intravascular depleted Abdomen soft bowel sound present Lower extremity swelling significantly improved Currently on 2 L nasal cannula at the bedside I do not see any sign of active stroke nonfocal neuroexam Urinary Catheter Management: Squires: Cath Placed During This Visit: yes Reason for Continuing Indwelling Catheter: Other Urinary Catheter Date of Insertion: 05/09/24 Urinary Catheter Time of Insertion: 14:29 Data 05/21/24 05:40 05/21/24 05:40 Micro: Microbiology 05/18/24 13:21 Urine Culture - Preliminary Urine,Clean Catch Yeast species A&P Assessment and plan (1) Diastolic CHF: Qualifiers: Heart failure chronicity: acute on chronic Qualified Code(s): I50.33 - Acute on chronic diastolic (congestive) heart failure (2) Acute on chronic diastolic heart failure: (3) Aortic stenosis: Qualifiers: Cardiac valve disease etiology: nonrheumatic Qualified Code(s): I35.0 - Nonrheumatic aortic (valve) stenosis (4) Peripheral arterial disease: (5) Atrial fibrillation: Qualifiers: Atrial fibrillation type: persistent (not longstanding) Qualified Code(s): I48.19 - Other persistent atrial fibrillation (6) Chronic anticoagulation: (7) Constipation: (8) GI bleeding: (9) Acute kidney injury superimposed on chronic kidney disease: (10) BPH (benign prostatic hyperplasia): Qualifiers: Lower urinary tract symptom presence: symptoms present Lower urinary tract symptom detail: urinary hesitancy Qualified Code(s): N40.1 - Benign prostatic hyperplasia with lower urinary tract symptoms; R39.11 - Hesitancy of micturition (11) Acute blood loss anemia: (12) Cellulitis: (13) RLS (restless legs syndrome): (14) On home oxygen therapy: (15) COPD with acute exacerbation: (16) SHARON (obstructive sleep apnea): (17) Lower extremity edema: Plan Acute diastolic CHF exacerbation Status post 2 sessions of dialysis, third session 05/19 Trials of diuretics to be continued Acute on chronic kidney disease: Third session of dialysis 05/19 For session of dialysis 05/15, ultrafiltration 05/16 dialysis catheter placement 05/15 General surgery planning to do permacath placement on Thursday Constipation: KUB unremarkable Passing flatus, poor p.o. intake Added Ensure 3 times daily A-fib with RVR Continue amiodarone at twice daily regimen 400 mg which will be transition to once daily regimen holding off on Cardizem secondary to low blood pressure Off Eliquis and Plavix secondary to GI bleed required 2 unit PRBC Acute GI blood loss anemia Hemoglobin stable Full code Lower extremity edema: Improving Resting tremors patient takes carbidopa levodopa Continue ropinirole Intermittent chest pain: As per cardiology continue medical management Patient has not experienced any demand ischemia or chest pain after dialysis Not a candidate for coronary intervention Hypoxia:- at home uses 2 L currently doing well on 2 L Disposition plan: Patient was to go home once his kidney function improved, final decision will be made after we place permanent dialysis catheter we have recommended SNF but family is wanting home health Chest congestion with nonproductive cough Repeat x-ray today Attestations 2 Medical Necessity Statement*: Continue medical management Diagnoses Acute on chronic diastolic congestive heart failure I50.33 Heart failure chronicity: acute on chronic Acute on chronic diastolic heart failure I50.33 Nonrheumatic aortic valve stenosis I35.0 Cardiac valve disease etiology: nonrheumatic Peripheral arterial disease I73.9 Persistent atrial fibrillation I48.19 Atrial fibrillation type: persistent (not longstanding) Chronic anticoagulation Z79.01 Constipation K59.00 GI bleeding K92.2 Acute kidney injury superimposed on chronic kidney disease N17.9; N18.9 Benign prostatic hyperplasia with urinary hesitancy N40.1; R39.11 Lower urinary tract symptom presence: symptoms present Lower urinary tract symptom detail: urinary hesitancy Acute blood loss anemia D62 Cellulitis L03.90 RLS (restless legs syndrome) G25.81 On home oxygen therapy Z99.81 COPD with acute exacerbation J44.1 SHARON (obstructive sleep apnea) G47.33 Lower extremity edema R60.0
--- NOTE | 2024-05-21 11:35 | XRR_ITS ---
PROCEDURE INFORMATION: Exam: XR Chest Exam date and time: 05/21/2024 2:28 PM Age: 89 years old Clinical indication: Prior surgery; Surgery date: 6+ months; Surgery type: Aaa; Patient HX: Congestion; Weakness; Wheezing TECHNIQUE: Imaging protocol: Radiologic exam of the chest. Views: 1 view. COMPARISON: CR (CHEST, ) 05/15/2024 9:17 AM FINDINGS: Tubes, catheters and devices: Right internal jugular central line tip is in the cranial cavoatrial junction. Left upper extremity PICC tip is in the superior cavoatrial junction. Lungs: Improved lung aeration with decrease in the patchy pulmonary infiltrates, more pronounced on the right side. Bilateral lower lobe consolidation/collapse, more on the right side. Pleural spaces: Redemonstrated the bilateral pleural effusions. Heart/Mediastinum: Cardiomegaly. Vasculature: Aortic arch calcifications. Bones/joints: Post sternotomy. XR/XR chest 1V portable [id number] IMPRESSION: Improved lung aeration with decrease in the patchy pulmonary infiltrates
[2024-05-21] MEDS: albumin 12.5 GM/250 ML VIAL IV (13:20)
[2024-05-21] MEDS: midodrine 5 mg TABLET 10 MG PO ×2 (15:00→19:59)
[2024-05-21] MEDS: ropinirole 2 mg Tablet 1 MG PO (17:22)
[2024-05-21] MEDS: sennosides 8.6 mg Tablet 17.2 MG PO (20:00)
[2024-05-21] MEDS: finasteride 5 mg Tablet PO (20:00)
[2024-05-21] MEDS: atorvastatin 40 mg Tablet PO (20:00)
[2024-05-21 21:01] LABS: ABG PCO2 43.4 mmHg (35-45); ABG PH Result 7.42 (7.35-7.45); Alveolar-Arterial Oxygen Gradi 2.3 mmHg (5-10); Base Excess ABG 3.5 mmol/L (-2.0-2.0); Blood Gas Allen Test Pos; Blood Gas Sample Site Radial, left; Blood Gas Sample Type Arterial; Carboxyhemoglobin 2.3 %THgb (0.4-20.1); HCO3 ABG 28.3 mmol/L (22-26); HGB O2 Sat 94.1 % (95-100); Ionized Calcium Level - ABG 1.2 mmol/L (1.1-1.4); Methemoglobin 0.7 % (0.4-1.5); Oxygen Device NC; Oxygen Saturation ABG 97.1; PO2 ABG 78.5 mmHg (80.0-100.0); Total Hemoglobin 8.5 g/dL (14-18)
[2024-05-22] VITALS (15 sets, daily range): BP systolic 95–117; BP diastolic 56–75; PULSE 62–91; RESP 17–20; TEMP 36.1–36.8; O2SAT 90–99
--- NOTE | 2024-05-22 00:12 | XRR_ITS ---
PROCEDURE INFORMATION: Exam: XR Chest Exam date and time: 05/22/2024 12:33 AM Age: 89 years old Clinical indication: Shortness of breath; Prior surgery; Surgery date: 6+ months; Surgery type: Carotid endarterectomy. Cabg. Aaa graft. Patient HX: Worsening SOB and hypoxia requiring bipap. ; Additional info: Change is respiratory status TECHNIQUE: Imaging protocol: Radiologic exam of the chest. Views: 1 view. COMPARISON: CR (CHEST, ) 05/21/2024 2:28 PM FINDINGS: Tubes, catheters and devices: Right internal jugular central venous catheter tip projects over the superior vena cava. Left PICC tip projects over the superior vena cava. Lungs: Persistent heterogeneous opacity at each lung base, more prominent on the right. Pleural spaces: Unchanged bilateral pleural effusions. No pneumothorax on either side. Heart/Mediastinum: Moderate cardiomegaly is stable from prior. Vasculature: Mediastinal surgical clips and vascular markers suggest prior myocardial revascularization. Bones/joints: Age appropriate. XR/XR chest 1V [id number] IMPRESSION: No significant change in bibasilar airspace opacity and bilateral pleural effusions, right worse than left. Unchanged moderate cardiomegaly.
--- NOTE | 2024-05-22 00:14 | PC.NURSE ---
Patient continuing to have low blood pressures throughout the evening. Patient is presenting more tachypneic and short of breath from assessment at shift change. Lung sounds are more course. O2 sats are 96% and current pressure of 103/67. Physician and respiratory notified of change in respiratory status. Chest xray, ABG, and 20 mg IVP lasix ordered by physician. Plan of care ongoing.
[2024-05-22 00:39] LABS: ABG PCO2 43.5 mmHg (35-45); ABG PH Result 7.43 (7.35-7.45); Arterial Blood Gas Hematocrit 26.5 % (42-52); Base Excess ABG 3.7 mmol/L (-2.0-2.0); Blood Gas Sample Site Brachial, right; Blood Gas Sample Type Arterial; HCO3 ABG 28.5 mmol/L (22-26); Oxygen Device NC
[2024-05-22] MEDS: albumin 12.5 GM/50 ML VIAL IV (00:47)
--- NOTE | 2024-05-22 01:03 | PC.NURSE ---
MARYLOU Ayala answered the phone and spoke with Dr Aguilar. Physician told MARYLOU Ayala to hold lasix and give albumin in hopes to get dialysis tomorrow. Jamie then relayed this message this nurse while at bedside prepping to give Lasix. Lasix had been drawn up already, so this nurse wasted it in the pyxis and discarded in drug buster. Albumin administered per Dr. Aguilar's orders.
[2024-05-22] MEDS: ipratropium-albuterol 3 mL Neb INHALATION ×4 (01:16→20:12)
[2024-05-22] MEDS: acetylcysteine 200 mg/mL SDV 4 mL INHALATION ×4 (01:16→20:12)
[2024-05-22 04:57] LABS: Basophils % 0.1 %; Eosinophils # 0.1 10^3/uL (0.0-0.8); Hematocrit 26.2 % (37-53); Lymphocytes # 0.4 10^3/uL (0.8-4.8); Mean Corpuscular HGB Conc 30.9 g/dL (30-55); Mean Corpuscular Hemoglobin 32.3 pg (27-33); Mean Corpuscular Volume 104.4 fl (82-101); Mean Platelet Volume 10.4 fL (7.4-10.4); Monocytes # 0.9 10^3/uL (0.2-0.9); Monocytes % 8.4 %; Neutrophils # 9.17 10^3/uL (1.8-7.7); Neutrophils % 85.8 %; Nucleated Red Blood Cells % 0 %; Platelet Count 117 10^3/cmm (157-399); Red Blood Count 2.51 10^6/uL (3.85-5.65); Red Cell Distribution Width 19.9 % (12.1-15.1)
[2024-05-22 05:18] LABS: Anion Gap 13.1 (5-19); Calcium 8.6 mg/dL (8.5-10.5); Carbon Dioxide 29 mmol/L (22-29); Chloride 101 mmol/L (98-107); Creatinine Clr Calc Pharmacy 16.5231; Glucose 95 mg/dL (65-115); Osmolality Calculated 317 mOsm/kg (285-295); Potassium 4.1 mmol/L (3.5-5.1); Sodium 139 mmol/L (136-145)
[2024-05-22 05:25] LABS: Blood Urea Nitrogen 95 mg/dL (8-23)
[2024-05-22] MEDS: sucralfate 1 gm Tablet PO ×2 (06:43→20:40)
--- NOTE | 2024-05-22 08:18 | P.PN_ITS ---
Subjective 2 Subjective: The patient was seen and examined. He appears short of breath but denies it. Patient is less edematous. The patient is weak required fluids overnight and had hypotension. Has poor urine output. Medications: Reviewed: Yes Medication Review Details: Current Medications Acetaminophen (Acetaminophen 325 Mg Tablet) 650 mg PO Q6H PRN PRN Reason: MILD PAIN Last Admin: 05/21/24 08:39 Dose: 650 mg Acetylcysteine (Acetylcysteine 200 Mg/Ml Sdv 4 Ml) 200 mg INHALATION Q6H.RESP AMANDA Last Admin: 05/22/24 01:16 Dose: 200 mg Albuterol/Ipratropium (Ipratropium-Albuterol 3 Ml Neb) 3 ml INHALATION Q6H.RESP AMANDA Last Admin: 05/22/24 01:16 Dose: 3 ml Albuterol/Ipratropium (Ipratropium-Albuterol 3 Ml Neb) 3 ml INHALATION Q6H PRN PRN Reason: SHORTNESS OF BREATH Last Admin: 05/21/24 16:54 Dose: 3 ml Allopurinol (Allopurinol 100 Mg Tablet) 100 mg PO DAILY [facility] Last Admin: 05/21/24 08:44 Dose: 100 mg Amiodarone HCl (Amiodarone 200 Mg Tablet) 400 mg PO DAILY [facility] Apixaban (Apixaban 5 Mg Tablet) 2.5 mg PO BID@0900,2100 [facility] Last Admin: 05/10/24 09:45 Dose: Not Given Atorvastatin Calcium (Atorvastatin 40 Mg Tablet) 40 mg PO BEDTIME [facility] Last Admin: 05/21/24 20:00 Dose: 40 mg Bumetanide (Bumetanide 0.25 Mg/Ml Sdv 10 Ml) 2 mg IVP DAILY [facility] Last Admin: 05/20/24 10:34 Dose: 2 mg Carbidopa/Levodopa (Carbidopa-Levodopa 25-100mg Tablet) 0.5 each PO TID [facility] Last Admin: 05/21/24 08:41 Dose: 0.5 each Collagenase (Collagenase Oint 30 Gm) 1 applic TOPICAL DAILY [facility] Last Admin: 05/21/24 08:54 Dose: Not Given Diltiazem HCl (Diltiazem 30 Mg Tablet) 30 mg PO QID [facility] Last Admin: 05/10/24 09:31 Dose: 30 mg Docusate Sodium (Docusate Sodium 100 Mg Capsule) 100 mg PO BID [facility] Last Admin: 05/21/24 17:23 Dose: 100 mg Epoetin Kris (Epoetin Kris 10,000 Unit/Ml Inj) 10,000 unit SUBCUT WEEKLY [facility] Ergocalciferol (Ergocalciferol (Vitamin D2) 50,000 Unit Capsule) 50,000 unit PO Q7D [facility] Last Admin: 05/16/24 10:13 Dose: 50,000 unit Finasteride (Finasteride 5 Mg Tablet) 5 mg PO BEDTIME [facility] Last Admin: 05/21/24 20:00 Dose: 5 mg Guaifenesin (Guaifenesin 600 Mg Tablet) 600 mg PO BID [facility] Last Admin: 05/21/24 17:23 Dose: 600 mg Norepinephrine Bitartrate (Levophed) 4 mg in 250 mls @ 0 mls/hr IV .Q0M PRN; Protocol PRN Reason: MAP less than 65 Last Titration: 05/18/24 01:45 Dose: Infused Dextrose (D10w) 125 mls @ 750 mls/hr IV PRN PRN PRN Reason: HYPOGLYCEMIA Last Infusion: 05/12/24 10:53 Dose: Infused Sodium Chloride (Sodium Chloride 0.9%) 1,000 mls @ 0 mls/hr IV .Q0M PRN PRN Reason: hypotension or symptomatic Ferric Sodium Gluconate 125 mg (/ Sodium Chloride) 110 mls @ 110 mls/hr IV Q24H [facility] Stop: 05/24/24 09:59 Last Infusion: 05/21/24 09:42 Dose: Infused Sodium Chloride (Sodium Chloride 0.9%) 1,000 mls @ 0 mls/hr IV .Q0M PRN PRN Reason: hypotension or symptomatic Albumin Human (Albumin) 12.5 gm in 50 mls @ 60 mls/hr IV PRN PRN PRN Reason: Hypotension and/or symptomatic Last Infusion: 05/22/24 02:12 Dose: Infused Lactobacillus Acidophilus (Lactobacillus 1 Tablet) 2 tab PO BID [facility] Last Admin: 05/21/24 17:22 Dose: 2 tab Lactulose (Lactulose Oral Liq 20 Gm/30 Ml Udc) 10 gm PO DAILY PRN PRN Reason: Constipation Midodrine (Midodrine 5 Mg Tablet) 10 mg PO TID [facility] Last Admin: 05/21/24 19:59 Dose: 10 mg Ondansetron HCl (Ondansetron 2 Mg/Ml Sdv 2 Ml) 4 mg IVP Q6H PRN PRN Reason: NAUSEA AND VOMITING Last Admin: 05/19/24 15:20 Dose: 4 mg Pantoprazole Sodium (Pantoprazole Dr 40 Mg Tablet) 40 mg PO BID [facility] Last Admin: 05/21/24 17:23 Dose: 40 mg Ranolazine (Ranolazine (12hr) 500 Mg Tablet) 500 mg PO BID [facility] Last Admin: 05/21/24 17:22 Dose: 500 mg Ropinirole HCl (Ropinirole 2 Mg Tablet) 1 mg PO QPM [facility] Last Admin: 05/21/24 17:22 Dose: 1 mg Senna (Sennosides 8.6 Mg Tablet) 17.2 mg PO BEDTIME [facility] Last Admin: 05/21/24 20:00 Dose: 17.2 mg Senna/Docusate Sodium (Sennosides-Docusate Tablet) 1 tab PO DAILY [facility] Last Admin: 05/21/24 08:46 Dose: 1 tab Sevelamer Carbonate (Sevelamer 800 Mg Tablet) 800 mg PO TID [facility] Last Admin: 05/21/24 20:00 Dose: 800 mg Sucralfate (Sucralfate 1 Gm Tablet) 1 gm PO AC&BEDTIME [facility] Last Admin: 05/22/24 06:43 Dose: 1 gm Tamsulosin HCl (Tamsulosin 0.4 Mg Capsule) 0.4 mg PO DAILY [facility] Last Admin: 05/21/24 08:45 Dose: 0.4 mg Zolpidem Tartrate (Zolpidem 5 Mg Tablet) 5 mg PO BEDTIME PRN PRN Reason: INSOMNIA Vitals/I&O/Wt Last Vital Signs Temp 97.0 F L 05/22/24 07:46 Pulse 88 05/22/24 07:46 Resp 19 H 05/22/24 07:46 BP 106/63 05/22/24 07:46 Pulse Ox 95 05/22/24 07:46 O2 Del Method Nasal Cannula 05/22/24 07:46 O2 Flow Rate 30 05/22/24 01:24 FiO2 35 05/22/24 00:32 05/21/24 05/22/24 05/22/24 22:59 06:59 14:59 Intake Total 240 / 1810 50 / 1860 Output Total 250 / 250 50 / 300 Balance - 1560 0 / 1560 Weight last 48 hrs Weight 88.195 kg Weight 87.317 kg Physical Exam 2 Narrative: Elderly man in bed sitting up uncomfortable appears short of breath. Vital signs noted. Using nasal cannula O2 blood pressure on low side of normal HEENT normocephalic/atraumatic. Neck is supple, positive right IJ permacath. Lungs dull bases, crackles bilaterally Heart-irregular rhythm well-controlled, systolic murmur Abdomen is soft positive bowel sounds. Extremities have bilateral leg edema. Skin tears + Neuro awake alert oriented times 2+ Urinary Catheter Management: Squires: Cath Placed During This Visit: yes Reason for Continuing Indwelling Catheter: Other Urinary Catheter Date of Insertion: 05/09/24 Urinary Catheter Time of Insertion: 14:29 Data 05/22/24 04:47 05/22/24 04:47 Micro: Microbiology 05/18/24 13:21 Urine Culture - Final Urine,Clean Catch Mirian albicans A&P Assessment and plan (1) Acute kidney injury superimposed on chronic kidney disease: 89-year-old gentleman with A-fib, heart failure preserved EF, GI bleed, acute on chronic renal failure. 1. Acute on CKD : poor response to diuretics. The patient started dialysis on May 15, 2024. working dx is CRS. however, his BP has fallen w/ dialysis -i am concerned abot his effusions -will not dialyze today consider thoracentesis or diuretics -for a tunnelled catheter this week 2. Anemia management: sec to blood loss , s/p 2 units PRBCs and s/p EGD iron saturation is low at 17 ferritin 157-start IV iron. Use Epogen. 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 PTH is 143 will monitor. Phosphorus is 5.5-continue phosphorus binder. 4. a fib controlled meds reviewed Patient was seen and examined using A/V equipment via a telehealth visit. The nurse examined the patient. Consent for telehealth and for hemodialysis was obtained from the patient and his family. Plan hypotension, paolo Attestations 2 Medical Necessity Statement*: Patient has A-fib, COPD, acute on chronic renal failure hypertension. Unable to tolerate dialysis. Will give Epogen and monitor assess daily for dialysis. Hold blood thinners is going for a permacath Time Spent in Patient Care: 16 - 35 minutes (>than 50% of time sp ent in counselling and/or direct pt care on unit) . Coding Level of Care Code Acute Code for [facility] Fwd Diagnoses Acute kidney injury superimposed on chronic kidney disease N17.9; N18.9
[2024-05-22] MEDS: sevelamer 800 mg Tablet PO ×3 (08:33→20:40)
[2024-05-22] MEDS: tamsulosin 0.4 mg Capsule PO (08:33)
[2024-05-22] MEDS: pantoprazole DR 40 mg Tablet PO ×2 (08:34→17:40)
[2024-05-22] MEDS: midodrine 5 mg TABLET 10 MG PO ×3 (08:34→20:41)
[2024-05-22] MEDS: ranolazine (12HR) 500 mg Tablet PO ×2 (08:35→17:39)
[2024-05-22] MEDS: amiodarone 200 mg Tablet 400 MG PO (08:36)
[2024-05-22] MEDS: guaiFENesin 600 mg Tablet PO ×2 (08:36→17:41)
[2024-05-22] MEDS: allopurinol 100 mg Tablet PO (08:36)
[2024-05-22] MEDS: lactobacillus 1 Tablet 2 TAB PO ×2 (08:36→17:39)
[2024-05-22] MEDS: epoetin alfa 10,000 unit/mL INJ 10000 UNIT SUBCUT (09:15)
--- NOTE | 2024-05-22 09:28 | P.PN_ITS ---
Vitals/I&O/Wt Last Vital Signs Temp 97.0 F L 05/22/24 07:46 Pulse 81 05/22/24 08:00 Resp 20 H 05/22/24 08:00 BP 106/63 05/22/24 07:46 Pulse Ox 96 05/22/24 08:00 O2 Del Method Nasal Cannula 05/22/24 08:00 O2 Flow Rate 2 05/22/24 08:00 FiO2 35 05/22/24 00:32 05/21/24 05/22/24 05/22/24 22:59 06:59 14:59 Intake Total 240 / 1810 50 / 1860 120 / 120 Output Total 250 / 250 50 / 300 Balance -10 / 1560 0 / 1560 120 / 120 Weight last 48 hrs Weight 194 lb 7 oz Weight 192 lb 8 oz Physical Exam 2 Urinary Catheter Management: Squires: Cath Placed During This Visit: yes Reason for Continuing Indwelling Catheter: Other Urinary Catheter Date of Insertion: 05/09/24 Urinary Catheter Time of Insertion: 14:29 Data 05/22/24 04:47 05/22/24 04:47 Micro: Microbiology 05/18/24 13:21 Urine Culture - Final Urine,Clean Catch Mirian albicans Coding Level of Care Code Acute Code for [facility]g Fwd
--- NOTE | 2024-05-22 10:58 | P.PN_ITS ---
Subjective 2 Subjective: Patient has been groggy however will be redirectable Poor p.o. intake Today decision was made not to dialyze him because of low blood pressure, yesterday blood pressure was low as well he was given 250 mill bolus and 1 bag of albumin Blood pressure this morning 106/63-minute andre Patient is on 2 L baseline home requirement at the bedside at the time of evaluation She is wanting to change CODE STATUS to DNR/DNI Chest x-ray showing pleural effusion right greater than left Will request thoracentesis for tomorrow however patient oxygen requirement has not worsened EF 52% Vitals/I&O/Wt Last Vital Signs Temp 97.0 F L 05/22/24 07:46 Pulse 81 05/22/24 08:00 Resp 20 H 05/22/24 08:00 BP 106/63 05/22/24 07:46 Pulse Ox 96 05/22/24 08:00 O2 Del Method Nasal Cannula 05/22/24 08:00 O2 Flow Rate 2 05/22/24 08:00 FiO2 35 05/22/24 00:32 05/21/24 05/22/24 05/22/24 22:59 06:59 14:59 Intake Total 240 / 1810 50 / 1860 120 / 120 Output Total 250 / 250 50 / 300 Balance -10 / 1560 0 / 1560 120 / 120 Weight last 48 hrs Weight 88.195 kg Weight 87.317 kg Physical Exam 2 Narrative: Signs of fluid load improving Currently on 2 L GCS 15 Pleasant cooperative Nonfocal neuroexam Patient able to follow commands Able to answer simple questions Skin wrinkling noted Sign of anasarca improving I do not see any sign of respiratory distress Bilateral diminished breath sounds right greater than left Given distended however soft bowel sounds sluggish Extremity cellulitis improving Skin wrinkling noted clear urine in the bag Urinary Catheter Management: Squires: Cath Placed During This Visit: yes Reason for Continuing Indwelling Catheter: Other Urinary Catheter Date of Insertion: 05/09/24 Urinary Catheter Time of Insertion: 14:29 Data 05/22/24 04:47 05/22/24 04:47 Micro: Microbiology 05/18/24 13:21 Urine Culture - Final Urine,Clean Catch Mirian albicans A&P Assessment and plan (1) Hypotension: Qualifiers: Hypotension type: other hypotension type Qualified Code(s): I95.89 - Other hypotension (2) Acute on chronic diastolic heart failure: (3) Aortic stenosis: Qualifiers: Cardiac valve disease etiology: nonrheumatic Qualified Code(s): I35.0 - Nonrheumatic aortic (valve) stenosis (4) S/P CABG (coronary artery bypass graft): (5) Atrial fibrillation: Qualifiers: Atrial fibrillation type: persistent (not longstanding) Qualified Code(s): I48.19 - Other persistent atrial fibrillation (6) Chronic anticoagulation: (7) GI bleeding: (8) Acute kidney injury superimposed on chronic kidney disease: (9) Acute blood loss anemia: (10) Cellulitis: (11) RLS (restless legs syndrome): (12) On home oxygen therapy: (13) SHARON (obstructive sleep apnea): (14) Lower extremity edema: (15) Pleural effusion: Plan 89-year male who was admitted on 05/09 for management evaluation of diastolic CHF exacerbation, neurology was consulted who recommended against any intervention patient tends to get chronic angina he is already on antianginal medications, Dr. Becker has recommended 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, patient developed acute on chronic kidney disease, he did make good progress with IV diuresis however secondary to persistent hypervolemia decision was made to transition to temporary dialysis catheter patient has received 3 sessions so far, since initiation of dialysis he tends to lower his blood pressure and get groggy, p.o. 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 who recommended conservative management and encouraged us to discuss goals of care when I spoke with the screening unit registered nurse. On Thursday there is plan for permacath placement and thoracentesis at baseline, please note patient requires 2 L of oxygen, anasarca seems to be getting better, , he has history of A-fib, Eliquis was held for acute on chronic anemia related to GI blood loss, EGD was done 05/14 which showed gastritis status post 2 unit PRBC Nonoliguric ATN Decision was made to put a temporary dialysis catheter 05/15 persistent hypervolemia when patient failed diuretic regimen status post 3 sessions of dialysis 05/15, 05/16, 05/19 Plan for permacath placement on Wednesday 05/23 Acute diastolic CHF exacerbation: Persistent hypervolemia improving Skin wrinkling is evident, anasarca seems to be getting better Acute GI blood loss anemia status post 2 unit PRBC First unit was given on admission second was given on 05/13 There was also hematuria which has resolved EGD done 05/14 A-fib without RVR currently on amiodarone Held other AV [place] blocking agents I have asked patient not to take Eliquis at all Constipation: Poor p.o. intake added Ensure Avoiding TPN/PPN because of CHF If patient absolutely stopped eating then we may start PPN at lower rate Consult dietitian Lower extremity edema has improved: Lower extremity cellulitis improved as well Daily dressing change has been done Right common iliac vessel stenosis As per family failed intervention in the past [facility] has not accepted the transfer and recommended conservative management Resting tremors: Takes ropinirole Carbidopa/levodopa Chronic hypoxia required 2 L at baseline Pleural effusion right greater than left will request thoracentesis on Thursday Goals of care discussed again today 05/22 is leaning towards DNR/DNI status Wanting another family meeting when daughter is here today Disposition: SNF/rehab once stable however my concern is patient might not be able to do well because he gets hypotensive he want people to continue dialysis and he will get readmitted, family is aware that since initiation of dialysis MrIndu Salamanca has been more groggy and p.o. intake has worsened Attestations 2 Medical Necessity Statement*: Continue medical management Diagnoses Other specified hypotension I95.89 Hypotension type: other hypotension type Acute on chronic diastolic heart failure I50.33 Nonrheumatic aortic valve stenosis I35.0 Cardiac valve disease etiology: nonrheumatic S/P CABG (coronary artery bypass graft) Z95.1 Persistent atrial fibrillation I48.19 Atrial fibrillation type: persistent (not longstanding) Chronic anticoagulation Z79.01 GI bleeding K92.2 Acute kidney injury superimposed on chronic kidney disease N17.9; N18.9 Acute blood loss anemia D62 Cellulitis L03.90 RLS (restless legs syndrome) G25.81 On home oxygen therapy Z99.81 SHARON (obstructive sleep apnea) G47.33 Lower extremity edema R60.0 Pleural effusion J90
[2024-05-22] MEDS: ferric gluconate 125 MG in sodium chloride 0.9% (100 ml) 100 ML 110 MG IV (11:33)
[2024-05-22] MEDS: ropinirole 2 mg Tablet 1 MG PO (14:59)
--- NOTE | 2024-05-22 17:48 | PM.MISC ---
Miscellaneous Note Purpose of Documentation: Update on patient care Note: After discussion with the medical team I have been informed that patient will be transition to hospice. No further dialysis will be requested, therefore no permacath placement is needed. General surgery remains available as needed.
[2024-05-22] MEDS: finasteride 5 mg Tablet PO (20:40)
[2024-05-22] MEDS: sennosides 8.6 mg Tablet 17.2 MG PO (20:41)
[2024-05-22] MEDS: atorvastatin 40 mg Tablet PO (20:41)
--- NOTE | 2024-05-22 22:14 | PM.CCNAC ---
Critical Care Event Note Had an extensive family meeting son and daughter present we discussed poor po intake, low bp and scenario of getting permcatg and HD w low Bp which are big challenges to overcome, he most likely will come back to the hospital due to low bp since HD he has been declining family does not want thoracentesis or perma cath G surgery notified family is requesting hospice care at Home The high probability of a clinically significant, sudden or life threatening deterioration of the patient's [] system(s) required my full and direct attention, intervention and personal management. The critical care time is as shown. This time is in addition to time spent performing any reported procedures but includes the following: [x] Data and vital sign review and interpretation [x] Patient assessment, examination and intervention [x] Documentation [x] Medication orders and management Critical Care Time Code activated: No Critical Care Time (min): 15 Coding Level of Care Code Acute Code for Jeniferg Darek
[2024-05-23] VITALS (9 sets, daily range): BP systolic 103–123; BP diastolic 66–72; PULSE 64–97; RESP 16–22; TEMP 36.2–36.6; O2SAT 93–97
[2024-05-23] MEDS: ipratropium-albuterol 3 mL Neb INHALATION ×3 (01:52→13:19)
[2024-05-23] MEDS: acetylcysteine 200 mg/mL SDV 4 mL INHALATION ×2 (01:52→13:19)
[2024-05-23 05:27] LABS: Basophils % 0.1 %; Eosinophils # 0.1 10^3/uL (0.0-0.8); Eosinophils % 0.5 %; Hematocrit 27.4 % (37-53); Lymphocytes # 0.5 10^3/uL (0.8-4.8); Lymphocytes % 4.2 %; Mean Corpuscular Hemoglobin 32.6 pg (27-33); Mean Platelet Volume 10.5 fL (7.4-10.4); Monocytes # 0.8 10^3/uL (0.2-0.9); Monocytes % 7.2 %; Neutrophils # 9.26 10^3/uL (1.8-7.7); Neutrophils % 86.8 %; Nucleated Red Blood Cells % 0 %; Platelet Count 123 10^3/cmm (157-399); Red Blood Count 2.61 10^6/uL (3.85-5.65); Red Cell Distribution Width 20.1 % (12.1-15.1); White Blood Count 10.67 10^3/uL (3.29-11.43)
[2024-05-23 05:50] LABS: Alanine Aminotransferase 14 U/L (0-41); Albumin Level 3.7 g/dL (3.5-5.2); Alkaline Phosphatase 71 U/L (40-130); Anion Gap 14.2 (5-19); Aspartate Amino Transferase 20 U/L (0-40); Calcium 8.5 mg/dL (8.5-10.5); Carbon Dioxide 27 mmol/L (22-29); Chloride 102 mmol/L (98-107); Globulin 1.5 g/dL (1.3-4.6); Glucose 83 mg/dL (65-115); Magnesium 2.5 mg/dL (1.7-2.3); Osmolality Calculated 317 mOsm/kg (285-295); Potassium 4.2 mmol/L (3.5-5.1); Sodium 139 mmol/L (136-145); Total Bilirubin 0.8 mg/dL (0.15-1.2); Total Protein 5.2 g/dL (6.6-8.7)
[2024-05-23 05:56] LABS: Creatinine Clr Calc Pharmacy 16.9024
[2024-05-23 05:58] LABS: Blood Urea Nitrogen 95 mg/dL (8-23)
[2024-05-23 06:10] LABS: Lactate Dehydrogenase 230 U/L (135-225)
[2024-05-23] MEDS: sucralfate 1 gm Tablet PO (07:09)
--- NOTE | 2024-05-23 08:04 | P.PN_ITS ---
Subjective 2 Subjective: The patient was seen and examined. He is today he is feeling better. I discussed with both the patient and his and they would not like to do dialysis at this time. They would like to go home. No nausea. Blood pressure improved. Denies shortness of breath. No vomiting and states he is urinating. Medications: Reviewed: Yes Medication Review Details: Current Medications Acetaminophen (Acetaminophen 325 Mg Tablet) 650 mg PO Q6H PRN PRN Reason: MILD PAIN Last Admin: 05/21/24 08:39 Dose: 650 mg Acetylcysteine (Acetylcysteine 200 Mg/Ml Sdv 4 Ml) 200 mg INHALATION Q6H.RESP AMANDA Last Admin: 05/23/24 01:52 Dose: 200 mg Albuterol/Ipratropium (Ipratropium-Albuterol 3 Ml Neb) 3 ml INHALATION Q6H.RESP AMANDA Last Admin: 05/23/24 01:52 Dose: 3 ml Albuterol/Ipratropium (Ipratropium-Albuterol 3 Ml Neb) 3 ml INHALATION Q6H PRN PRN Reason: SHORTNESS OF BREATH Last Admin: 05/21/24 16:54 Dose: 3 ml Allopurinol (Allopurinol 100 Mg Tablet) 100 mg PO DAILY AMANDA Last Admin: 05/22/24 08:36 Dose: 100 mg Amiodarone HCl (Amiodarone 200 Mg Tablet) 400 mg PO DAILY [facility] Last Admin: 05/22/24 08:36 Dose: 400 mg Apixaban (Apixaban 5 Mg Tablet) 2.5 mg PO BID@0900,2100 [facility] Last Admin: 05/10/24 09:45 Dose: Not Given Atorvastatin Calcium (Atorvastatin 40 Mg Tablet) 40 mg PO BEDTIME [facility] Last Admin: 05/22/24 20:41 Dose: 40 mg Bumetanide (Bumetanide 0.25 Mg/Ml Sdv 10 Ml) 2 mg IVP DAILY [facility] Last Admin: 05/20/24 10:34 Dose: 2 mg Carbidopa/Levodopa (Carbidopa-Levodopa 25-100mg Tablet) 0.5 each PO TID AMANDA Last Admin: 05/21/24 08:41 Dose: 0.5 each Collagenase (Collagenase Oint 30 Gm) 1 applic TOPICAL DAILY [facility] Last Admin: 05/22/24 14:51 Dose: Not Given Diltiazem HCl (Diltiazem 30 Mg Tablet) 30 mg PO QID [facility] Last Admin: 05/10/24 09:31 Dose: 30 mg Docusate Sodium (Docusate Sodium 100 Mg Capsule) 100 mg PO BID [facility] Last Admin: 05/22/24 17:41 Dose: Not Given Ergocalciferol (Ergocalciferol (Vitamin D2) 50,000 Unit Capsule) 50,000 unit PO Q7D [facility] Last Admin: 05/16/24 10:13 Dose: 50,000 unit Finasteride (Finasteride 5 Mg Tablet) 5 mg PO BEDTIME [facility] Last Admin: 05/22/24 20:40 Dose: 5 mg Guaifenesin (Guaifenesin 600 Mg Tablet) 600 mg PO BID [facility] Last Admin: 05/22/24 17:41 Dose: 600 mg Norepinephrine Bitartrate (Levophed) 4 mg in 250 mls @ 0 mls/hr IV .Q0M PRN; Protocol PRN Reason: MAP less than 65 Last Titration: 05/18/24 01:45 Dose: Infused Dextrose (D10w) 125 mls @ 750 mls/hr IV PRN PRN PRN Reason: HYPOGLYCEMIA Last Infusion: 05/12/24 10:53 Dose: Infused Sodium Chloride (Sodium Chloride 0.9%) 1,000 mls @ 0 mls/hr IV .Q0M PRN PRN Reason: hypotension or symptomatic Ferric Sodium Gluconate 125 mg (/ Sodium Chloride) 110 mls @ 110 mls/hr IV Q24H [facility] Stop: 05/24/24 09:59 Last Infusion: 05/22/24 12:52 Dose: Infused Sodium Chloride (Sodium Chloride 0.9%) 1,000 mls @ 0 mls/hr IV .Q0M PRN PRN Reason: hypotension or symptomatic Lactobacillus Acidophilus (Lactobacillus 1 Tablet) 2 tab PO BID [facility] Last Admin: 05/22/24 17:39 Dose: 2 tab Lactulose (Lactulose Oral Liq 20 Gm/30 Ml Udc) 10 gm PO DAILY PRN PRN Reason: Constipation Midodrine (Midodrine 5 Mg Tablet) 10 mg PO TID [facility] Last Admin: 05/22/24 20:41 Dose: 10 mg Ondansetron HCl (Ondansetron 2 Mg/Ml Sdv 2 Ml) 4 mg IVP Q6H PRN PRN Reason: NAUSEA AND VOMITING Last Admin: 05/19/24 15:20 Dose: 4 mg Pantoprazole Sodium (Pantoprazole Dr 40 Mg Tablet) 40 mg PO BID [facility] Last Admin: 05/22/24 17:40 Dose: 40 mg Ranolazine (Ranolazine (12hr) 500 Mg Tablet) 500 mg PO BID [facility] Last Admin: 05/22/24 17:39 Dose: 500 mg Ropinirole HCl (Ropinirole 2 Mg Tablet) 1 mg PO QPM [facility] Last Admin: 05/22/24 14:59 Dose: 1 mg Senna (Sennosides 8.6 Mg Tablet) 17.2 mg PO BEDTIME [facility] Last Admin: 05/22/24 20:41 Dose: 17.2 mg Senna/Docusate Sodium (Sennosides-Docusate Tablet) 1 tab PO DAILY [facility] Last Admin: 05/22/24 13:51 Dose: Not Given Sevelamer Carbonate (Sevelamer 800 Mg Tablet) 800 mg PO TID [facility] Last Admin: 05/22/24 20:40 Dose: 800 mg Sucralfate (Sucralfate 1 Gm Tablet) 1 gm PO AC&BEDTIME [facility] Last Admin: 05/23/24 07:09 Dose: 1 gm Tamsulosin HCl (Tamsulosin 0.4 Mg Capsule) 0.4 mg PO DAILY [facility] Last Admin: 05/22/24 08:33 Dose: 0.4 mg Zolpidem Tartrate (Zolpidem 5 Mg Tablet) 5 mg PO BEDTIME PRN PRN Reason: INSOMNIA Vitals/I&O/Wt Last Vital Signs Temp 97.7 F 05/23/24 07:23 Pulse 86 05/23/24 07:23 Resp 20 H 05/23/24 07:23 BP 111/69 05/23/24 07:23 Pulse Ox 93 05/23/24 07:23 O2 Del Method Nasal Cannula 05/23/24 07:23 O2 Flow Rate 2 05/23/24 02:01 FiO2 35 05/22/24 00:32 05/22/24 05/23/24 05/23/24 22:59 06:59 14:59 Output Total 350 / 350 700 / 1050 Balance -350 / -20 -700 / -720 Weight last 48 hrs Weight 86.835 kg Weight 88.195 kg Physical Exam 2 Narrative: Elderly man in bed, no apparent distress at rest. Vital signs noted. Using nasal cannula O2 Blood pressure has improved HEENT normocephalic/atraumatic. Neck is supple, positive right IJ permacath. Lungs dull bases, crackles bilaterally Heart-irregular rhythm well-controlled, systolic murmur Abdomen is soft positive bowel sounds. Extremities have bilateral leg edema. Skin tears + Neuro awake alert oriented times 2+, moves all extremities Urinary Catheter Management: Squires: Cath Placed During This Visit: yes Reason for Continuing Indwelling Catheter: Acute Urinary Retention or Obstruction Urinary Catheter Date of Insertion: 05/09/24 Urinary Catheter Time of Insertion: 14:29 Data 05/23/24 05:14 05/23/24 05:14 Micro: Microbiology 05/18/24 13:21 Urine Culture - Final Urine,Clean Catch Mirian albicans A&P Assessment and plan (1) Acute kidney injury superimposed on chronic kidney disease: 89-year-old gentleman with A-fib, heart failure preserved EF, GI bleed, acute on chronic renal failure. 1. Acute on CKD : Working diagnosis was cardiorenal syndrome. The patient was started dialysis on May 15, 2024. -Unfortunately the patient did not do well with dialysis due to hypotension. The hospitalist and myself at the open times discussed with the patient's family and with the patient and they would like to stop dialysis at this time. They do not want a tunneled catheter. Please remove temporary dialysis catheter as per family wishes. 2. Anemia management: sec to blood loss , s/p 2 units PRBCs and s/p EGD iron saturation is low at 17 ferritin 157-start IV iron. Use Epogen as needed. 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 PTH is 143 will monitor. Phosphorus is 5.5-continue phosphorus binder. 4. a fib controlled 5. As mentioned above the family plan to go home with home hospice. I think that is reasonable. Renal will sign off at this time if we can be of any further assistance please not hesitate to call. Can continue any medications to keep him comfortable. Meds reviewed Patient was seen and examined using A/V equipment via a telehealth visit. Plan hypotension, paolo Attestations 2 Medical Necessity Statement*: for hospice as per family and hospitalist Time Spent in Patient Care: 16 - 35 minutes (>than 50% of time sp ent in counselling and/or direct pt care on unit) . Coding Level of Care Code Acute Code for Chg Fwd Diagnoses Acute kidney injury superimposed on chronic kidney disease N17.9; N18.9
--- NOTE | 2024-05-23 08:48 | PM.PN ---
Subjective Subjective: Patient is feeling weak and tired. The dialysis stopped. Patient and the family has decided not to pursue any aggressive measures. Wanted to go home with hospice care No chest pain or fever. No other specific complaints. Medications: Medication Review Details: Current Medications Acetaminophen (Acetaminophen 325 Mg Tablet) 650 mg PO Q6H PRN PRN Reason: MILD PAIN Last Admin: 05/21/24 08:39 Dose: 650 mg Acetylcysteine (Acetylcysteine 200 Mg/Ml Sdv 4 Ml) 200 mg INHALATION Q6H.RESP AMANDA Last Admin: 05/23/24 08:09 Dose: Not Given Albuterol/Ipratropium (Ipratropium-Albuterol 3 Ml Neb) 3 ml INHALATION Q6H.RESP AMANDA Last Admin: 05/23/24 08:09 Dose: 3 ml Albuterol/Ipratropium (Ipratropium-Albuterol 3 Ml Neb) 3 ml INHALATION Q6H PRN PRN Reason: SHORTNESS OF BREATH Last Admin: 05/21/24 16:54 Dose: 3 ml Allopurinol (Allopurinol 100 Mg Tablet) 100 mg PO DAILY [facility] Last Admin: 05/22/24 08:36 Dose: 100 mg Amiodarone HCl (Amiodarone 200 Mg Tablet) 400 mg PO DAILY [facility] Last Admin: 05/22/24 08:36 Dose: 400 mg Apixaban (Apixaban 5 Mg Tablet) 2.5 mg PO BID@0900,2100 [facility] Last Admin: 05/10/24 09:45 Dose: Not Given Atorvastatin Calcium (Atorvastatin 40 Mg Tablet) 40 mg PO BEDTIME [facility] Last Admin: 05/22/24 20:41 Dose: 40 mg Bumetanide (Bumetanide 0.25 Mg/Ml Sdv 10 Ml) 2 mg IVP DAILY [facility] Last Admin: 05/20/24 10:34 Dose: 2 mg Carbidopa/Levodopa (Carbidopa-Levodopa 25-100mg Tablet) 0.5 each PO TID [facility] Last Admin: 05/21/24 08:41 Dose: 0.5 each Collagenase (Collagenase Oint 30 Gm) 1 applic TOPICAL DAILY [facility] Last Admin: 05/22/24 14:51 Dose: Not Given Diltiazem HCl (Diltiazem 30 Mg Tablet) 30 mg PO QID [facility] Last Admin: 05/10/24 09:31 Dose: 30 mg Docusate Sodium (Docusate Sodium 100 Mg Capsule) 100 mg PO BID [facility] Last Admin: 05/22/24 17:41 Dose: Not Given Ergocalciferol (Ergocalciferol (Vitamin D2) 50,000 Unit Capsule) 50,000 unit PO Q7D [facility] Last Admin: 05/16/24 10:13 Dose: 50,000 unit Finasteride (Finasteride 5 Mg Tablet) 5 mg PO BEDTIME [facility] Last Admin: 05/22/24 20:40 Dose: 5 mg Guaifenesin (Guaifenesin 600 Mg Tablet) 600 mg PO BID [facility] Last Admin: 05/22/24 17:41 Dose: 600 mg Norepinephrine Bitartrate (Levophed) 4 mg in 250 mls @ 0 mls/hr IV .Q0M PRN; Protocol PRN Reason: MAP less than 65 Last Titration: 05/18/24 01:45 Dose: Infused Dextrose (D10w) 125 mls @ 750 mls/hr IV PRN PRN PRN Reason: HYPOGLYCEMIA Last Infusion: 05/12/24 10:53 Dose: Infused Sodium Chloride (Sodium Chloride 0.9%) 1,000 mls @ 0 mls/hr IV .Q0M PRN PRN Reason: hypotension or symptomatic Ferric Sodium Gluconate 125 mg (/ Sodium Chloride) 110 mls @ 110 mls/hr IV Q24H [facility] Stop: 05/24/24 09:59 Last Infusion: 05/22/24 12:52 Dose: Infused Sodium Chloride (Sodium Chloride 0.9%) 1,000 mls @ 0 mls/hr IV .Q0M PRN PRN Reason: hypotension or symptomatic Lactobacillus Acidophilus (Lactobacillus 1 Tablet) 2 tab PO BID [facility] Last Admin: 05/22/24 17:39 Dose: 2 tab Lactulose (Lactulose Oral Liq 20 Gm/30 Ml Udc) 10 gm PO DAILY PRN PRN Reason: Constipation Midodrine (Midodrine 5 Mg Tablet) 10 mg PO TID [facility] Last Admin: 05/22/24 20:41 Dose: 10 mg Ondansetron HCl (Ondansetron 2 Mg/Ml Sdv 2 Ml) 4 mg IVP Q6H PRN PRN Reason: NAUSEA AND VOMITING Last Admin: 05/19/24 15:20 Dose: 4 mg Pantoprazole Sodium (Pantoprazole Dr 40 Mg Tablet) 40 mg PO BID [facility] Last Admin: 05/22/24 17:40 Dose: 40 mg Ranolazine (Ranolazine (12hr) 500 Mg Tablet) 500 mg PO BID [facility] Last Admin: 05/22/24 17:39 Dose: 500 mg Ropinirole HCl (Ropinirole 2 Mg Tablet) 1 mg PO QPM [facility] Last Admin: 05/22/24 14:59 Dose: 1 mg Senna (Sennosides 8.6 Mg Tablet) 17.2 mg PO BEDTIME [facility] Last Admin: 05/22/24 20:41 Dose: 17.2 mg Senna/Docusate Sodium (Sennosides-Docusate Tablet) 1 tab PO DAILY [facility] Last Admin: 05/22/24 13:51 Dose: Not Given Sevelamer Carbonate (Sevelamer 800 Mg Tablet) 800 mg PO TID [facility] Last Admin: 05/22/24 20:40 Dose: 800 mg Sucralfate (Sucralfate 1 Gm Tablet) 1 gm PO AC&BEDTIME [facility] Last Admin: 05/23/24 07:09 Dose: 1 gm Tamsulosin HCl (Tamsulosin 0.4 Mg Capsule) 0.4 mg PO DAILY [facility] Last Admin: 05/22/24 08:33 Dose: 0.4 mg Zolpidem Tartrate (Zolpidem 5 Mg Tablet) 5 mg PO BEDTIME PRN PRN Reason: INSOMNIA Vitals/I&O/Wt Last Vital Signs Temp 97.7 F 05/23/24 07:23 Pulse 81 05/23/24 08:09 Resp 16 05/23/24 08:09 BP 111/69 05/23/24 07:23 Pulse Ox 96 05/23/24 08:09 O2 Del Method Nasal Cannula 05/23/24 08:09 O2 Flow Rate 2 05/23/24 08:09 FiO2 35 05/22/24 00:32 05/22/24 05/23/24 05/23/24 22:59 06:59 14:59 Intake Total 120 / 120 Output Total 350 / 350 700 / 1050 Balance -350 / -20 -700 / -720 120 / 120 Weight last 48 hrs Weight 191 lb 7 oz Weight 194 lb 7 oz Physical Exam Narrative: GENERAL: The patient is alert and oriented x 3. Not in any acute distress. Seems very fatigued HEENT: Minimal pallor. No icterus or lymphadenopathy.Oral cavity: There are no mucous membrane lesions. NECK: Trachea appears to be central. No masses noted. No JVD or thyromegaly appreciated. RESPIRATORY: Scattered diffuse expiratory wheezing and coarse crackles bilaterally BREASTS: Deferred. HEART: The heart sounds are normal. No S3 or S4. Ejection systolic murmur grade 3 or 6 in the aortic area. Apparently systolic murmur in the left sternal border. No pericardial rub ABDOMEN: No vessel pulsations or distention. No tenderness. No organomegaly appreciated. Bowel sounds are normally heard. : Deferred. RECTAL: Deferred. LYMPHATIC: No lymphadenopathy noted in the neck. EXTREMITIES: 1+ edema both lower extremities. Some weeping ulcers on the anterior aspect of the right leg, clinically improving MUSCULOSKELETAL: No acute joint deformities or swelling SKIN: There are no significant rashes or ecchymosis. Features of chronic venous stasis and stasis dermatitis especially on the left leg. Small superficial ulcers in the right leg, seems healing. NEUROPSYCHIATRIC: The patient is alert and oriented x3. Not in any distress. Urinary Catheter Management: Squires: Cath Placed During This Visit: yes Reason for Continuing Indwelling Catheter: Acute Urinary Retention or Obstruction Urinary Catheter Date of Insertion: 05/09/24 Urinary Catheter Time of Insertion: 14:29 Data 05/23/24 05:14 05/23/24 05:14 Other Labs: Laboratory Last Values WBC 10.67 10^3/uL (3.29-11.43) 05/23/24 05:14 RBC 2.61 10^6/uL (3.85-5.65) L 05/23/24 05:14 Hgb 8.50 g/dL (11.27-16.99) L 05/23/24 05:14 Hct 27.4 % (37-53) L 05/23/24 05:14 MCV 105.0 fl (82-101) H 05/23/24 05:14 MCH 32.6 pg (27-33) 05/23/24 05:14 MCHC 31.0 g/dL (30-55) 05/23/24 05:14 RDW 20.1 % (12.1-15.1) H 05/23/24 05:14 Plt Count 123 10^3/cmm (157-399) L 05/23/24 05:14 MPV 10.5 fL (7.4-10.4) H 05/23/24 05:14 Neut % (Auto) 86.8 % 05/23/24 05:14 Lymph % (Auto) 4.2 % 05/23/24 05:14 [place] % (Auto) 7.2 % 05/23/24 05:14 Eos % (Auto) 0.5 % 05/23/24 05:14 Baso % (Auto) 0.1 % 05/23/24 05:14 Neut # (Auto) 9.26 10^3/uL (1.8-7.7) H 05/23/24 05:14 Lymph # (Auto) 0.5 10^3/uL (0.8-4.8) L 05/23/24 05:14 [place] # (Auto) 0.8 10^3/uL (0.2-0.9) 05/23/24 05:14 Eos # (Auto) 0.1 10^3/uL (0.0-0.8) 05/23/24 05:14 Baso # (Auto) 0.0 10^3/uL (0.0-0.1) 05/23/24 05:14 Nucleated RBC % (auto) 0 % 05/23/24 05:14 Nucleated RBCs # 0.0 /100WBC 05/23/24 05:14 PT 22.80 SECONDS (12.1-14.9) H 05/09/24 15:45 INR 1.93 (0.8-1.2) H 05/09/24 15:45 APTT 47.3 SECONDS (23.9-36.7) H 05/09/24 15:45 Specimen Type Arterial 05/22/24 00:21 Sample Site Brachial, right 05/22/24 00:21 ABG pH 7.43 (7.35-7.45) 05/22/24 00:21 ABG pCO2 43.5 mmHg (35-45) 05/22/24 00:21 ABG pO2 100.0 mmHg (80.0-100.0) 05/22/24 00:21 ABG PO2/FiO2 Ratio 0 05/10/24 04:13 ABG HCO3 28.5 mmol/L (22-26) H 05/22/24 00:21 ABG O2 Saturation 97.1 05/21/24 20:51 ABG Base Excess 3.7 mmol/L (-2.0-2.0) H 05/22/24 00:21 [place] Test N/a 05/22/24 00:21 A-a O2 Gradient 2.3 mmHg (5-10) L 05/21/24 20:51 Hematocrit 26.5 % (42-52) L 05/22/24 00:21 Hgb O2 Saturation 94.1 % (95-100) L 05/21/24 20:51 Carboxyhemoglobin 2.3 %THgb (0.4-20.1) 05/21/24 20:51 Methemoglobin 0.7 % (0.4-1.5) 05/21/24 20:51 Total Hemoglobin 8.5 g/dL (14-18) L 05/21/24 20:51 Sodium 140.0 mmol/L (131-143) 05/21/24 20:51 Potassium 4.0 mmol/L (3.5-5.0) 05/21/24 20:51 Glucose 114.0 mg/dL (70-115) 05/21/24 20:51 Ionized Calcium 1.2 mmol/L (1.1-1.4) 05/21/24 20:51 O2 Delivery Device Nc 05/22/24 00:21 O2 Liters/Min 2.0 % 05/22/24 00:21 FiO2 30.0 % 05/10/24 04:13 Tidal Volume 0.40 05/10/24 04:13 Provider Relations Manager ID [email or web address] 05/22/24 00:21 Sodium 139 mmol/L (136-145) 05/23/24 05:14 Potassium 4.2 mmol/L (3.5-5.1) 05/23/24 05:14 Chloride 102 mmol/L (98-107) 05/23/24 05:14 Carbon Dioxide 27 mmol/L (22-29) 05/23/24 05:14 Anion Gap 14.2 (5-19) 05/23/24 05:14 BUN 95 mg/dL (8-23) H* 05/23/24 05:14 Creatinine 3.3 mg/dL (0.7-1.2) H 05/23/24 05:14 GFR Calculation Not Reportable 05/23/24 05:14 Glucose 83 mg/dL (65-115) 05/23/24 05:14 POC Glucose 136 mg/dL (70-110) H 05/12/24 11:27 Calculated Osmolality 317 mOsm/kg (285-295) H 05/23/24 05:14 Lactic Acid 1.6 mmol/L (0.5-2.2) 05/09/24 09:58 Uric Acid 11.9 mg/dL (3.4-7.0) H 05/09/24 09:58 Calcium 8.5 mg/dL (8.5-10.5) 05/23/24 05:14 Phosphorus 4.0 mg/dL (2.5-4.5) 05/23/24 05:14 Magnesium 2.5 mg/dL (1.7-2.3) H 05/23/24 05:14 Iron 55 ug/dL (59-158) L 05/09/24 09:58 TIBC 315 mcg/dl 05/09/24 09:58 % Saturation 17.4 % (20-50) L 05/09/24 09:58 Unsat Iron Binding 260 ug/dL (112-347) 05/09/24 09:58 Ferritin 139 ng/mL (30-400) 05/16/24 04:18 Total Bilirubin 0.8 mg/dL (0.15-1.2) 05/23/24 05:14 AST 20 U/L (0-40) 05/23/24 05:14 ALT 14 U/L (0-41) 05/23/24 05:14 Alkaline Phosphatase 71 U/L (40-130) 05/23/24 05:14 Lactate Dehydrogenase 230 U/L (135-225) H 05/23/24 05:14 Troponin T Baseline 74 ng/L (0-15) H 05/09/24 09:58 Troponin T 120 Minute 72.15 ng/L (0-15) H 05/09/24 13:05 Delta Troponin T -1.85 ABS# (0-10) L 05/09/24 13:05 Troponin T Hi Sens 6Hr 61.14 ng/L (0-15) H 05/09/24 15:45 Troponin T Hi Sens 6Hr Delta -12.86 ng/L (0-12) L 05/09/24 15:45 C-Reactive Protein 26.9 mg/L (0.0-4.9) H 05/09/24 09:58 NT-Pro-B Natriuret Pep 2199 pg/mL (0-450) H 05/09/24 09:58 Total Protein 5.2 g/dL (6.6-8.7) L 05/23/24 05:14 Albumin 3.7 g/dL (3.5-5.2) 05/23/24 05:14 Globulin 1.5 g/dL (1.3-4.6) 05/23/24 05:14 25-OH Vitamin D Total 21 ng/mL (30-100) L 05/16/24 04:18 PTH Intact 143.6 pg/mL (15-65) H 05/16/24 04:18 Calcium (PTH Intact) 8.2 mg/dL (8.5-10.5) L 05/16/24 04:18 Urine Color Other (Yellow) A 05/18/24 13:21 Urine Appearance Cloudy (CLEAR) A 05/18/24 13:21 Urine pH 5 (5-7) 05/18/24 13:21 Ur Specific [place] 1.020 (1.005-1.030) 05/18/24 13:21 Urine Protein 1+ (Negative) H 05/18/24 13:21 Urine Glucose (UA) Norm (Normal) 05/18/24 13:21 Urine Ketones 1+ (Negative) H 05/18/24 13:21 Urine Blood 3+ (Negative) H 05/18/24 13:21 Urine Nitrate Negative (Negative) 05/18/24 13:21 Urine Bilirubin Neg (Negative) 05/18/24 13:21 Urine Urobilinogen Norm mg/dL (Negative) 05/18/24 13:21 Ur Leukocyte Esterase 2+ (Negative) H 05/18/24 13:21 Urine RBC 10-15 /hpf (0-2) H 05/18/24 13:21 Urine WBC 15-25 /hpf (0-5) H 05/18/24 13:21 Ur Squamous Epith Cells 0-4 /hpf (0-5) H 05/18/24 13:21 Ur Transition Epith Cell 0-4 /hpf 05/09/24 14:27 Amorphous Sediment Not Reportable 05/18/24 13:21 Urine Bacteria 2+ /hpf (NONE) H 05/18/24 13:21 Hyaline Casts 15-25 /lpf H 05/09/24 14:27 Urine Mucus 2+ /hpf 05/18/24 13:21 Urine Yeast 3+ /hpf H 05/18/24 13:21 Ur Random Microalbumin 49 ug/dL (0-20) H 05/12/24 13:17 Ur Random Sodium 19 mmol/L 05/18/24 13:21 Ur Random Potassium 36 mmol/L 05/18/24 13:21 Ur Random Chloride 25 mmol/L 05/18/24 13:21 Urine Creatinine 77 mg/dL (39-259) 05/18/24 13:21 Microalb/Creat Ratio 817 mg/dL (0-20) H 05/12/24 13:17 Adenovirus (PCR) Not detected (NOT DETECT) 05/09/24 10:00 C. pneumoniae DNA (PCR) Not detected (NOT DETECT) 05/09/24 10:00 Coronavirus 229E (PCR) Not detected (NOT DETECT) 05/09/24 10:00 Hep Bs Antigen Non-reactive (Nonreactive) 05/15/24 09:20 Hep Bs Antibody < 3.5 (11.5-1000) L 05/15/24 09:20 Human Metapneumovir PCR Not detected (NOT DETECT) 05/09/24 10:00 Influenza A (H1) PCR Not detected (NOT DETECT) 05/09/24 10:00 Influ A (H1/09) PCR Not detected (NOT DETECT) 05/09/24 10:00 Influenza A (H3) PCR Not detected (NOT DETECT) 05/09/24 10:00 Influenza Type A (PCR) Not detected (NOT DETECT) 05/09/24 10:00 Influenza Type B (PCR) Not detected (NOT DETECT) 05/09/24 10:00 M. pneumoniae (PCR) Not detected (NOT DETECT) 05/09/24 10:00 Parainfluenza 1 (PCR) Not detected (NOT DETECT) 05/09/24 10:00 Parainfluenza 2 (PCR) Not detected (NOT DETECT) 05/09/24 10:00 Parainfluenza 3 (PCR) Not detected (NOT DETECT) 05/09/24 10:00 Parainfluenza 4 (PCR) Not detected (NOT DETECT) 05/09/24 10:00 RSV Type A (PCR) Not detected (NOT DETECT) 05/09/24 10:00 RSV Type B (PCR) Not detected (NOT DETECT) 05/09/24 10:00 Entero/Rhino (PCR) Not detected (NOT DETECT) 05/09/24 10:00 SARS-CoV-2 (PCR) Not detected (NOT DETECT) 05/09/24 10:00 Beta-(1,3)-D-Glucan 67 pg/ml 05/15/24 03:58 B-(1,3)-D-Glucan Intrp Indeterminate (Negative) A 05/15/24 03:58 Blood Type O Positive 05/13/24 13:30 Rho(D) Type Rh positive 05/13/24 13:30 Antibody Screen Negative 05/13/24 13:30 Crossmatch See Detail 05/13/24 13:30 Micro: Microbiology 05/18/24 13:21 Urine Culture - Final Urine,Clean Catch Mirian albicans A&P Assessment and plan (1) Atherosclerotic heart disease of [place] coronary artery with unstable angina pectoris: Seems to have no more chest pain. May continue on the current measures. Qualifiers: [place] vs. transplanted heart: [place] heart Qualified Code(s): I25.110 - Atherosclerotic heart disease of [place] coronary artery with unstable angina pectoris (2) Acute kidney injury superimposed on chronic kidney disease: Status post hemodialysis. The family and the patient has decided no to continue the dialysis (3) Hypotension: Currently normotensive Qualifiers: Hypotension type: other hypotension type Qualified Code(s): I95.89 - Other hypotension (4) Atrial fibrillation: Patient is in atrial fibrillation with controlled ventricular response rate. May continue on the current treatment. Qualifiers: Atrial fibrillation type: persistent (not longstanding) Qualified Code(s): I48.19 - Other persistent atrial fibrillation (5) Acute on chronic diastolic heart failure: Heart failure is fairly compensated. Will continue on the current management. (6) Hyperlipidemia: May continue on the current medication Qualifiers: Hyperlipidemia type: unspecified Qualified Code(s): E78.5 - Hyperlipidemia, unspecified (7) Peripheral arterial disease: No specific symptoms of heart insufficiency (8) Anemia: The hemoglobin seems to be steady. May continue on the current management Qualifiers: Anemia type: unspecified type Qualified Code(s): D64.9 - Anemia, unspecified (9) Aortic stenosis: The patient seems to have a severe low gradient aortic valve stenosis. Patient is not interested in any further intervention Qualifiers: Cardiac valve disease etiology: nonrheumatic Qualified Code(s): I35.0 - Nonrheumatic aortic (valve) stenosis Plan Patient and the family has decided to go home on hospice May continue the current conservative measures. Attestations Medical Necessity Statement*: Disposition as per the primary Coding Level of Care Code 70077 Diagnoses Atherosclerosis of [place] coronary artery of [place] heart with unstable angina pectoris I25.110 [place] vs. transplanted heart: [place] heart Acute kidney injury superimposed on chronic kidney disease N17.9; N18.9 Other specified hypotension I95.89 Hypotension type: other hypotension type Persistent atrial fibrillation I48.19 Atrial fibrillation type: persistent (not longstanding) Acute on chronic diastolic heart failure I50.33 Hyperlipidemia, unspecified hyperlipidemia type E78.5 Hyperlipidemia type: unspecified Peripheral arterial disease I73.9 Anemia D64.9 Anemia type: unspecified type Nonrheumatic aortic valve stenosis I35.0 Cardiac valve disease etiology: nonrheumatic
[2024-05-23] MEDS: docusate sodium 100 mg Capsule PO (09:21)
[2024-05-23] MEDS: guaiFENesin 600 mg Tablet PO (09:21)
[2024-05-23] MEDS: ergocalciferol (vitamin D2) 50,000 Unit Capsule 50000 UNIT PO (09:21)
[2024-05-23] MEDS: sennosides-docusate Tablet 1 TAB PO (09:21)
[2024-05-23] MEDS: lactobacillus 1 Tablet 2 TAB PO (09:22)
[2024-05-23] MEDS: allopurinol 100 mg Tablet PO (09:22)
[2024-05-23] MEDS: amiodarone 200 mg Tablet 400 MG PO (09:22)
[2024-05-23] MEDS: midodrine 5 mg TABLET 10 MG PO ×2 (09:22→16:23)
[2024-05-23] MEDS: ranolazine (12HR) 500 mg Tablet PO (09:22)
[2024-05-23] MEDS: tamsulosin 0.4 mg Capsule PO (09:22)
[2024-05-23] MEDS: sevelamer 800 mg Tablet PO ×2 (09:22→16:24)
[2024-05-23] MEDS: pantoprazole DR 40 mg Tablet PO (09:22)
[2024-05-23] MEDS: collagenase oint 30 gm 1 APPLIC TOPICAL (09:27)
--- NOTE | 2024-05-23 11:00 | US_ITS ---
WS: [id number] INDICATION: Ultrasound shows for pleural fluid TECHNIQUE: Ultrasound chest FINDINGS: Bilateral chest ultrasound demonstrates small bilateral pleural effusions with compressive atelectasis in the lung bases. US/US chest [id number] IMPRESSION: See above
[2024-05-23 11:02] LABS: INR 1.31 (0.8-1.2)
--- NOTE | 2024-05-23 13:11 | PM.DCS ---
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 transplanted heart: mi[place]q heart Qualified Code(s): I25.110 - Atherosclerotic heart disease of [place]q coronary artery with unstable angina pectoris (2) Acute kidney injury superimposed on chronic kidney disease: Status: Acute (3) Hypotension: Status: Acute Qualifiers: Hypotension type: other hypotension type Qualified Code(s): I95.89 - Other hypotension (4) Atrial fibrillation: Status: Chronic Qualifiers: Atrial fibrillation type: persistent (not longstanding) Qualified Code(s): I48.19 - Other persistent atrial fibrillation (5) Acute on chronic diastolic heart failure: Status: Acute (6) Hyperlipidemia: Status: Chronic Qualifiers: Hyperlipidemia type: unspecified Qualified Code(s): E78.5 - Hyperlipidemia, unspecified (7) Peripheral arterial disease: Status: Acute (8) Anemia: Status: Inactive Qualifiers: Anemia type: unspecified type Qualified Code(s): D64.9 - Anemia, unspecified (9) Aortic stenosis: Status: Acute Qualifiers: Cardiac valve disease etiology: nonrheumatic Qualified Code(s): I35.0 - Nonrheumatic aortic (valve) stenosis Reason for Visit Reason for Visit: Weak, low blood pressure, [place] Hospital Course Hospital Course 89-year male with multiple underlying comorbidities including atherosclerotic heart disease, status post open heart surgery x 2, peripheral artery disease, status post popliteal bypass surgery, history of atrial fibrillation, congestive heart failure, recent hospital admission for pneumonia/cellulitis who was admitted on 05/09 for management evaluation of diastolic CHF exacerbation. He has had chronic angina. Cardiology was consulted, no current intervention was currently indicated. Antianginal medications were continued. Patient's hospital course was complicated by development of GI bleed, for which he underwent upper GI endoscopy which showed erosions at the level of the stomach. patient also developed acute on chronic kidney disease, he did make good progress with IV diuresis however secondary to persistent hypervolemia decision was made to transition to temporary dialysis catheter patient has received 3 sessions , since initiation of dialysis he tends to lower his blood pressure and get groggy, p.o. 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 Family decided to transition to hospice measures. He is being transitioned to home hospice today with [facility]. Physical Exam Narrative: General: No acute distress, AO x3 no dteailed exam for patient comfort Urinary Catheter Management: Squires: Cath Placed During This Visit: yes Reason for Continuing Indwelling Catheter: Acute Urinary Retention or Obstruction Urinary Catheter Date of Insertion: 05/09/24 Urinary Catheter Time of Insertion: 14:29 Discharge Data Studies Completed and Pending Completed Studies During Hospitalization Category Date Time Status CT lower leg RT wo con* [id number] Routine Cat Scan 05/10/24 10:20 Completed CXRP [XR chest 1V portable [id number]] Routine Exams 05/09/24 14:35 Completed CXRP [XR chest 1V portable [id number]] Routine Exams 05/15/24 08:53 Completed XR KUB portable [id number] Routine Exams 05/20/24 10:51 Completed XR chest 1V [id number] Stat Exams 05/22/24 00:12 Completed XR chest 1V portable [id number] Routine Exams 05/12/24 11:47 Completed XR chest 1V portable [id number] Routine Exams 05/21/24 11:35 Completed XR chest 1V portable [id number] Stat Exams 05/09/24 09:41 Completed CV. echo complete* [id number] Routine Ultrasound 05/09/24 18:13 Completed US arterial duplex lower extremity RT [CV arterial Ultrasound 05/10/24 10:19 [place] [id number]] Urgent US renal BI* [id number] Routine Ultrasound 05/15/24 08:22 Completed Pending at discharge Category Date Time Status Cell Count w Diff Pleural Fld Routine Lab 05/22/24 11:00 Uncollected Complete Blood Count w/Auto AM LABS Lab 05/24/24 04:00 Ordered Complete Blood Count w/Auto AM LABS Lab 05/25/24 04:00 Ordered Comprehensive Metabolic Panel AM LABS Lab 05/24/24 04:00 Ordered Comprehensive Metabolic Panel AM LABS Lab 05/25/24 04:00 Ordered LDH Pleural Fluid Routine Lab 05/22/24 11:00 Uncollected Magnesium AM LABS Lab 05/24/24 04:00 Ordered Magnesium AM LABS Lab 05/25/24 04:00 Ordered Phosphorus AM LABS Lab 05/24/24 04:00 Ordered Phosphorus AM LABS Lab 05/25/24 04:00 Ordered Pleural Fluid Albumin Routine Lab 05/22/24 11:00 Uncollected Pleural Fluid Cholesterol Routine Lab 05/22/24 11:00 Uncollected Pleural [Right Pleural Fluid Analysis] Routine Lab 05/22/24 11:00 Uncollected Total Protein Pleural Fluid Routine Lab 05/22/24 11:00 Uncollected pH Pleural Fluid Routine Lab 05/22/24 11:00 Uncollected US thoracentesis [id number] Routine Ultrasound 05/23/24 11:00 Ordered Radiology Impressions Duplex Scan Lower Extremity Artery 05/10/24 10:19 IMPRESSION: 1. Abnormal monophasic arterial waveforms from the level of the mid to distal superficial femoral artery and distally within the right leg, suggesting significant runoff disease. 2. Moderate systolic velocity elevation or stenosis of the right common iliac artery also noted. 3. No occlusion is seen. 4. WANDY not obtained due to poor skin condition. Lower Extremity CT 05/10/24 10:20 IMPRESSION: 1. Diffuse subcutaneous edema is noted and is nonspecific. This may be related to noninfectious inflammatory changes, venous stasis or cellulitis. No abscess is identified. 2. A mild focus of slightly hyperdense skin thickening along the anterolateral mid lower leg is noted which may be inflammatory in nature. The possibility of a small hematoma in this region is not excluded. 3. Large knee joint effusion containing small ossified or calcified bodies. 4. 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 5. Primary osteoarthritic changes of the ankle. 6. Additional nonurgent findings as detailed above. Renal Ultrasound 05/15/24 08:22 IMPRESSION: 1. Atrophic, echogenic kidneys bilaterally with no hydronephrosis 2. Hepatic cirrhosis with ascites KUB X-Ray 05/20/24 10:51 IMPRESSION: No acute abnormality. Chest X-Ray 05/22/24 00:12 IMPRESSION: No significant change in bibasilar airspace opacity and bilateral pleural effusions, right worse than left. Unchanged moderate cardiomegaly. Laboratory Results WBC 10.67 10^3/uL (3.29-11.43) 05/23/24 05:14 RBC 2.61 10^6/uL (3.85-5.65) L 05/23/24 05:14 Hgb 8.50 g/dL (11.27-16.99) L 05/23/24 05:14 Hct 27.4 % (37-53) L 05/23/24 05:14 MCV 105.0 fl (82-101) H 05/23/24 05:14 MCH 32.6 pg (27-33) 05/23/24 05:14 MCHC 31.0 g/dL (30-55) 05/23/24 05:14 RDW 20.1 % (12.1-15.1) H 05/23/24 05:14 Plt Count 123 10^3/cmm (157-399) L 05/23/24 05:14 MPV 10.5 fL (7.4-10.4) H 05/23/24 05:14 Neut % (Auto) 86.8 % 05/23/24 05:14 Lymph % (Auto) 4.2 % 05/23/24 05:14 Bucks % (Auto) 7.2 % 05/23/24 05:14 Eos % (Auto) 0.5 % 05/23/24 05:14 Baso % (Auto) 0.1 % 05/23/24 05:14 Neut # (Auto) 9.26 10^3/uL (1.8-7.7) H 05/23/24 05:14 Lymph # (Auto) 0.5 10^3/uL (0.8-4.8) L 05/23/24 05:14 Bucks # (Auto) 0.8 10^3/uL (0.2-0.9) 05/23/24 05:14 Eos # (Auto) 0.1 10^3/uL (0.0-0.8) 05/23/24 05:14 Baso # (Auto) 0.0 10^3/uL (0.0-0.1) 05/23/24 05:14 Nucleated RBC % (auto) 0 % 05/23/24 05:14 Nucleated RBCs # 0.0 /100WBC 05/23/24 05:14 PT 16.70 SECONDS (12.1-14.9) H 05/23/24 08:49 INR 1.31 (0.8-1.2) H 05/23/24 08:49 APTT 47.3 SECONDS (23.9-36.7) H 05/09/24 15:45 Specimen Type Arterial 05/22/24 00:21 Sample Site Brachial, right 05/22/24 00:21 ABG pH 7.43 (7.35-7.45) 05/22/24 00:21 ABG pCO2 43.5 mmHg (35-45) 05/22/24 00:21 ABG pO2 100.0 mmHg (80.0-100.0) 05/22/24 00:21 ABG PO2/FiO2 Ratio 0 05/10/24 04:13 ABG HCO3 28.5 mmol/L (22-26) H 05/22/24 00:21 ABG O2 Saturation 97.1 05/21/24 20:51 ABG Base Excess 3.7 mmol/L (-2.0-2.0) H 05/22/24 00:21 Crispin Test N/a 05/22/24 00:21 A-a O2 Gradient 2.3 mmHg (5-10) L 05/21/24 20:51 Hematocrit 26.5 % (42-52) L 05/22/24 00:21 Hgb O2 Saturation 94.1 % (95-100) L 05/21/24 20:51 Carboxyhemoglobin 2.3 %THgb (0.4-20.1) 05/21/24 20:51 Methemoglobin 0.7 % (0.4-1.5) 05/21/24 20:51 Total Hemoglobin 8.5 g/dL (14-18) L 05/21/24 20:51 Sodium 140.0 mmol/L (131-143) 05/21/24 20:51 Potassium 4.0 mmol/L (3.5-5.0) 05/21/24 20:51 Glucose 114.0 mg/dL (70-115) 05/21/24 20:51 Ionized Calcium 1.2 mmol/L (1.1-1.4) 05/21/24 20:51 O2 Delivery Device Nc 05/22/24 00:21 O2 Liters/Min 2.0 % 05/22/24 00:21 FiO2 30.0 % 05/10/24 04:13 Tidal Volume 0.40 05/10/24 04:13 Body [employer] F[employer]ic Apprentice ID [email or web address] 05/22/24 00:21 Sodium 139 mmol/L (136-145) 05/23/24 05:14 Potassium 4.2 mmol/L (3.5-5.1) 05/23/24 05:14 Chloride 102 mmol/L (98-107) 05/23/24 05:14 Carbon Dioxide 27 mmol/L (22-29) 05/23/24 05:14 Anion Gap 14.2 (5-19) 05/23/24 05:14 BUN 95 mg/dL (8-23) H* 05/23/24 05:14 Creatinine 3.3 mg/dL (0.7-1.2) H 05/23/24 05:14 GFR Calculation Not Reportable 05/23/24 05:14 Glucose 83 mg/dL (65-115) 05/23/24 05:14 POC Glucose 136 mg/dL (70-110) H 05/12/24 11:27 Calculated Osmolality 317 mOsm/kg (285-295) H 05/23/24 05:14 Lactic Acid 1.6 mmol/L (0.5-2.2) 05/09/24 09:58 Uric Acid 11.9 mg/dL (3.4-7.0) H 05/09/24 09:58 Calcium 8.5 mg/dL (8.5-10.5) 05/23/24 05:14 Phosphorus 4.0 mg/dL (2.5-4.5) 05/23/24 05:14 Magnesium 2.5 mg/dL (1.7-2.3) H 05/23/24 05:14 Iron 55 ug/dL (59-158) L 05/09/24 09:58 TIBC 315 mcg/dl 05/09/24 09:58 % Saturation 17.4 % (20-50) L 05/09/24 09:58 Unsat Iron Binding 260 ug/dL (112-347) 05/09/24 09:58 Ferritin 139 ng/mL (30-400) 05/16/24 04:18 Total Bilirubin 0.8 mg/dL (0.15-1.2) 05/23/24 05:14 AST 20 U/L (0-40) 05/23/24 05:14 ALT 14 U/L (0-41) 05/23/24 05:14 Alkaline Phosphatase 71 U/L (40-130) 05/23/24 05:14 Lactate Dehydrogenase 230 U/L (135-225) H 05/23/24 05:14 Troponin T Baseline 74 ng/L (0-15) H 05/09/24 09:58 Troponin T 120 Minute 72.15 ng/L (0-15) H 05/09/24 13:05 Delta Troponin T -1.85 ABS# (0-10) L 05/09/24 13:05 Troponin T Hi Sens 6Hr 61.14 ng/L (0-15) H 05/09/24 15:45 Troponin T Hi Sens 6Hr Delta -12.86 ng/L (0-12) L 05/09/24 15:45 C-Reactive Protein 26.9 mg/L (0.0-4.9) H 05/09/24 09:58 NT-Pro-B Natriuret Pep 2199 pg/mL (0-450) H 05/09/24 09:58 Total Protein 5.2 g/dL (6.6-8.7) L 05/23/24 05:14 Albumin 3.7 g/dL (3.5-5.2) 05/23/24 05:14 Globulin 1.5 g/dL (1.3-4.6) 05/23/24 05:14 25-OH Vitamin D Total 21 ng/mL (30-100) L 05/16/24 04:18 PTH Intact 143.6 pg/mL (15-65) H 05/16/24 04:18 Calcium (PTH Intact) 8.2 mg/dL (8.5-10.5) L 05/16/24 04:18 Urine Color Other (Yellow) A 05/18/24 13:21 Urine Appearance Cloudy (CLEAR) A 05/18/24 13:21 Urine pH 5 (5-7) 05/18/24 13:21 Ur Specific [place] 1.020 (1.005-1.030) 05/18/24 13:21 Urine Protein 1+ (Negative) H 05/18/24 13:21 Urine Glucose (UA) Norm (Normal) 05/18/24 13:21 Urine Ketones 1+ (Negative) H 05/18/24 13:21 Urine Blood 3+ (Negative) H 05/18/24 13:21 Urine Nitrate Negative (Negative) 05/18/24 13:21 Urine Bilirubin Neg (Negative) 05/18/24 13:21 Urine Urobilinogen Norm mg/dL (Negative) 05/18/24 13:21 Ur Leukocyte Esterase 2+ (Negative) H 05/18/24 13:21 Urine RBC 10-15 /hpf (0-2) H 05/18/24 13:21 Urine WBC 15-25 /hpf (0-5) H 05/18/24 13:21 Ur Squamous Epith Cells 0-4 /hpf (0-5) H 05/18/24 13:21 Ur Transition Epith Cell 0-4 /hpf 05/09/24 14:27 Amorphous Sediment Not Reportable 05/18/24 13:21 Urine Bacteria 2+ /hpf (NONE) H 05/18/24 13:21 Hyaline Casts 15-25 /lpf H 05/09/24 14:27 Urine Mucus 2+ /hpf 05/18/24 13:21 Urine Yeast 3+ /hpf H 05/18/24 13:21 Ur Random Microalbumin 49 ug/dL (0-20) H 05/12/24 13:17 Ur Random Sodium 19 mmol/L 05/18/24 13:21 Ur Random Potassium 36 mmol/L 05/18/24 13:21 Ur Random Chloride 25 mmol/L 05/18/24 13:21 Urine Creatinine 77 mg/dL (39-259) 05/18/24 13:21 Microalb/Creat Ratio 817 mg/dL (0-20) H 05/12/24 13:17 Adenovirus (PCR) Not detected (NOT DETECT) 05/09/24 10:00 C. pneumoniae DNA (PCR) Not detected (NOT DETECT) 05/09/24 10:00 Coronavirus 229E (PCR) Not detected (NOT DETECT) 05/09/24 10:00 Hep Bs Antigen Non-reactive (Nonreactive) 05/15/24 09:20 Hep Bs Antibody < 3.5 (11.5-1000) L 05/15/24 09:20 Human Metapneumovir PCR Not detected (NOT DETECT) 05/09/24 10:00 Influenza A (H1) PCR Not detected (NOT DETECT) 05/09/24 10:00 Influ A (H1/09) PCR Not detected (NOT DETECT) 05/09/24 10:00 Influenza A (H3) PCR Not detected (NOT DETECT) 05/09/24 10:00 Influenza Type A (PCR) Not detected (NOT DETECT) 05/09/24 10:00 Influenza Type B (PCR) Not detected (NOT DETECT) 05/09/24 10:00 M. pneumoniae (PCR) Not detected (NOT DETECT) 05/09/24 10:00 Parainfluenza 1 (PCR) Not detected (NOT DETECT) 05/09/24 10:00 Parainfluenza 2 (PCR) Not detected (NOT DETECT) 05/09/24 10:00 Parainfluenza 3 (PCR) Not detected (NOT DETECT) 05/09/24 10:00 Parainfluenza 4 (PCR) Not detected (NOT DETECT) 05/09/24 10:00 RSV Type A (PCR) Not detected (NOT DETECT) 05/09/24 10:00 RSV Type B (PCR) Not detected (NOT DETECT) 05/09/24 10:00 Entero/Rhino (PCR) Not detected (NOT DETECT) 05/09/24 10:00 SARS-CoV-2 (PCR) Not detected (NOT DETECT) 05/09/24 10:00 Beta-(1,3)-D-Glucan 67 pg/ml 05/15/24 03:58 B-(1,3)-D-Glucan Intrp Indeterminate (Negative) A 05/15/24 03:58 Blood Type O Positive 05/13/24 13:30 Rho(D) Type Rh positive 05/13/24 13:30 Antibody Screen Negative 05/13/24 13:30 Crossmatch See Detail 05/13/24 13:30 Vitals Last Vital Signs Temp 97.3 F L 05/23/24 11:46 Pulse 77 05/23/24 11:46 Resp 19 H 05/23/24 11:46 BP 109/69 05/23/24 11:46 Pulse Ox 96 05/23/24 11:46 O2 Del Method Nasal Cannula 05/23/24 11:46 O2 Flow Rate 2 05/23/24 08:09 FiO2 35 05/22/24 00:32 Discharge Plan Discharge Patient Disposition: Hospice - Home Condition: Stable Prescriptions: Continued diltiazem HCl [Cartia XT] 180 mg capsule,extended release 24hr 180 mg PO QAM finasteride 5 mg tablet 5 mg PO BEDTIME nitroglycerin [Nitrostat] 0.4 mg tablet, sublingual 0.4 mg SUBLINGUAL Q5M PRN (Reason: chest pain) Qty: 25 3RF Rx Instructions: do not exceed 3 doses per episode ropinirole 2 mg tablet 1 mg PO QPM furosemide 40 mg tablet 40 mg PO BID 30 Days Qty: 60 0RF clopidogrel 75 mg tablet 75 mg PO DAILY tamsulosin 0.4 mg capsule 0.4 mg PO DAILY bacitracin 500 unit/gram ointment 1 applic topical BID Qty: 14 0RF zolpidem 5 mg tablet 5 mg PO BEDTIME PRN (Reason: Insomnia) calcium carb-D3-mag ox-zinc ox 333 mg-133 unit -133 mg-5 mg Tablet 1 tab PO DAILY Discontinued atorvastatin 40 mg tablet 40 mg PO QPM multivitamin Tablet 1 tab PO DAILY cephalexin 500 mg capsule 500 mg PO BID Qty: 14 0RF Patient Comments: One dose left omega-3 fatty acids 500 mg capsule 500 mg PO DAILY isosorbide mononitrate 30 mg tablet extended release 24 hr 30 mg PO BID Qty: 180 3RF ranolazine 500 mg tablet extended release 12 hr 500 mg PO BID Qty: 180 3RF Eliquis 5 mg tablet 2.5 mg PO BID Qty: 30 2RF losartan 25 mg tablet 25 mg PO DAILY carbidopa-levodopa 25-100 mg tablet 0.5 ea PO TID potassium chloride 20 mEq tablet extended release 20 meq PO BID PRN (Reason: low potassium (currently not scheduled)) Rx Instructions: with lasix vitamin E 268 mg (400 unit) Capsule 268 mg PO DAILY Magnalife See Rx Instructions .ROUTE .COMPLEX Rx Instructions: small amount topically to legs at bedtime for Restless Legs Discharge Orders: Discharge Order (Routine); Ordered 05/23/24 Ordered By: Krista Woodard Referrals: Gwen Sanon NP [Primary Care Provider] - 05/31/24 8:30 am Discharge Diet: Usual diet Discharge Activity: Resume usual activity Patient Instructions: Dialysis Diet (DC), Hemodialysis (DC), GI Discharge Instructions Discharge Attestations Time Spent in Discharge Care*: greater than 30 min Quality Metrics Clinical Quality Measures [ No reported AMI, CVA or VTE this stay] Coding Level of Care Code Acute Code for Chg Fwd Diagnoses Atherosclerosis of [place] coronary artery of [place] heart with unstable angina pectoris I25.110 [place] vs. transplanted heart: [place] heart Acute kidney injury superimposed on chronic kidney disease N17.9; N18.9 Other specified hypotension I95.89 Hypotension type: other hypotension type Persistent atrial fibrillation I48.19 Atrial fibrillation type: persistent (not longstanding) Acute on chronic diastolic heart failure I50.33 Hyperlipidemia, unspecified hyperlipidemia type E78.5 Hyperlipidemia type: unspecified Peripheral arterial disease I73.9 Anemia D64.9 Anemia type: unspecified type Nonrheumatic aortic valve stenosis I35.0 Cardiac valve disease etiology: nonrheumatic
--- NOTE | 2024-05-23 13:14 | PC.SOCIAL ---
IMM Update pg 2 of IMM updated and reviewed w/ patient. Copy provided and copy dated, initialed and placed in chart.
--- NOTE | 2024-05-23 16:34 | PC.NURSE ---
Discharge delayed d/t awaiting hospice equipment delivery to home. Dialysis catheter and PICC line out. Tolerated well. Catheters intact.
== END 2024-05-23 18:35 | disposition hospice, home (50) | DRG 682 ==
LOC: ER 12:38 → ICU 12:43 → MEDSURG 05-18 01:36
PROVIDERS: Hospitalist; Internal Medicine; Internal Medicine Nephrology; Surgery; Admitting Provider Hospitalist; Emergency Provider Emergency Medicine; PCP Nurse Practitioner Family; Visit Provider Student in an Organized Health Care Education/Training Program
PROC: 0DJ08ZZ Inspection of Upper Intestinal Tract, Via Natural or Artificial Opening Endoscopic (ICD-10-PCS; CPT 43235; principal; 2024-05-14 08:00)
PROC: 02HV33Z Insertion of Infusion Device into Superior Vena Cava, Percutaneous Approach (ICD-10-PCS; principal; 2024-05-15 08:00)
DX: N17.0 Acute kidney failure with tubular necrosis (principal); I50.33 Acute on chronic diastolic (congestive) heart failure; J96.21 Acute and chronic respiratory failure with hypoxia; K29.01 Acute gastritis with bleeding; I48.19 Other persistent atrial fibrillation; J44.1 Chronic obstructive pulmonary disease with (acute) exacerbation; I13.0 Hypertensive heart and chronic kidney disease with heart failure and stage 1 through stage 4 chronic kidney disease, or unspecified chronic kidney disease; L03.116 Cellulitis of left lower limb; L03.115 Cellulitis of right lower limb; D62 Acute posthemorrhagic anemia; Z11.52 Encounter for screening for COVID-19; N18.32 Chronic kidney disease, stage 3b; I25.118 Atherosclerotic heart disease of native coronary artery with other forms of angina pectoris; Z95.1 Presence of aortocoronary bypass graft; Z79.02 Long term (current) use of antithrombotics/antiplatelets; Z79.01 Long term (current) use of anticoagulants; N40.1 Benign prostatic hyperplasia with lower urinary tract symptoms; R39.11 Hesitancy of micturition; Z99.81 Dependence on supplemental oxygen; I95.9 Hypotension, unspecified; Z66 Do not resuscitate; Z51.5 Encounter for palliative care; E55.9 Vitamin D deficiency, unspecified; R31.9 Hematuria, unspecified; K59.00 Constipation, unspecified; D63.1 Anemia in chronic kidney disease; E87.5 Hyperkalemia; Z98.890 Other specified postprocedural states; E78.5 Hyperlipidemia, unspecified; G25.81 Restless legs syndrome; G47.33 Obstructive sleep apnea (adult) (pediatric); I73.9 Peripheral vascular disease, unspecified; F17.200 Nicotine dependence, unspecified, uncomplicated; I35.0 Nonrheumatic aortic (valve) stenosis; Z87.01 Personal history of pneumonia (recurrent)
CPT/HCPCS: 32555; 36415; 36416; 36430; 36573; 36592; 36600; 43235; 51702; 71045; 73700; 74018; 76604; 76770; 80048; 80051; 80053; 81001; 82044; 82274; 82306; 82310; 82330; 82436; 82570; 82728; 82803; 82805; 82962; 83540; 83550; 83605; 83615; 83735; 83880; 83970; 84100; 84133; 84300; 84484; 84550; 85025; 85610; 85730; 86140; 86706; 86850; 86900; 86920; 87040; 87070; 87086; 87106; 87205; 87340; 87449; 87486; 87581; 87633; 90935; 93005; 93306; 93926; 94640; 94660; 96365; 96366; 96367; 96372; 96374; 96375; 96376; 97110; 97116; 97162; 97530; 99212; 99285; C1751; C1752; C9113; J0612; J1644; J1815; J1940; J2020; J2185; J2270; J2371; J2405; J2704; J2916; J2919; J3370; J3490; J7030; J7050; J7512; J7608; J7613; J7799; P9016; P9040; P9045; P9046; P9047; Q3014; Q4081